=== PATIENT | male | born 1945 | race Caucasian/White ===

== ENCOUNTER 2024-10-13 13:40 | Inpatient (IN) | payer MEDICARE, MEDICAID, SELFPAY ==
[2024-10-13] VITALS (8 sets, daily range): BP systolic 91–137; BP diastolic 44–117; PULSE 55–83; RESP 13–25; TEMP 36.2–37.7; O2SAT 92–98; BMI 28.4
--- NOTE | ~2024-10-13 | CT_ITS ---
CLINICAL HISTORY: sepsis, r o renal abscess Exam: CT of the abdomen and pelvis with intravenous contrast. Comparison: None. Findings: Images degraded by patient motion. CT abdomen: Multifocal areas of consolidation are identified within the lung bases. Paraseptal emphysematous changes are also evident. Small right pleural effusion with trace left pleural effusion. Bones are osteopenic. Multilevel degenerative change throughout the thoracolumbar spine with bony ankylosis at L2-3. No acute fracture. Moderate coronary artery calcifications. No focal lesions identified within the liver, spleen, pancreas, or adrenal glands. Densely calcified gallstones are seen filling the gallbladder. No pericholecystic induration is identified. Bilateral renal cysts without solid mass or hydronephrosis. Small bowel loops are of normal caliber. No free fluid or free air. CT pelvis: Kekojndz-yp-hoqnk amount of stool throughout the colon. 6 cm stool ball seen within the rectum. Moderate to severe sigmoid diverticulosis without diverticulitis. There is vascular calcification of the abdominal aorta and iliac arteries. Numerous radiation beads seen within the prostate gland. Kelly catheter is seen within a decompressed urinary bladder. On the most caudad axial image, there is a fluid attenuation structure to the right of the Kelly catheter in the region of the proximal penile urethra measuring 1.4 x 2.0 cm in size. No enlarged lymph nodes. Impression: 1. Multifocal areas of consolidation in the lungs on a background of emphysema. This is most characteristic of multifocal pneumonia. 2. Cholelithiasis without CT findings of cholecystitis. 3. Prominent colonic stool without findings of obstruction. 4. Posttreatment change of the prostate gland with nonspecific fluid attenuation structure along the right aspect of the penile urethra on the most caudad axial image. This document has been electronically signed by: James Bautista MD on 10/14/2024 10:01:08
--- NOTE | ~2024-10-13 | XR_ITS ---
EXAMINATION: XR CHEST CLINICAL INFORMATION: fever, hypoxia COMPARISON: None available. TECHNIQUE: Frontal view of the chest was obtained. FINDINGS: There is cardiac enlargement. The aorta is calcified. There are hazy opacities in the bilateral perihilar regions. Elevated right hemidiaphragm. Lungs demonstrate diffuse increased interstitial markings, possibly reflecting underlying interstitial lung disease. Superimposed patchy opacities right mid lung, perihilar regions, left lower lung, possibly representing infectious or inflammatory pneumonia. There are no effusions or pneumothoraces. There are spinal and bilateral shoulder joint degenerative changes. No acute bony or soft tissue abnormalities. XR/XR chest 1V IMPRESSION: 1. Cardiomegaly. 2. Diffusely increased interstitial markings throughout both lungs, possibly on the basis of chronic interstitial lung disease. 3. Superimposed hazy opacities right mid lung, perihilar regions, and left lower lung could represent infectious or inflammatory pneumonia. 4. No definite effusion seen. Electronically signed by: Evans Freitas MD 10/13/2024 03:25 PM [facility]
--- NOTE | 2024-10-13 13:49 | MHC.EDSEPSIS ---
HPI - Sepsis General Chief Complaint: Dyspnea Stated Complaint: SEPSIS ALERT,AMS,?UTI PER EMS Time Seen by Provider: 10/13/24 13:46 Source: patient, EMS, RN notes reviewed and old records reviewed Mode of arrival: EMS Limitations: no limitations History of Present Illness ED Provider: Dangelo Fried PA-C HPI Narrative: 79 y/o bdbound male with history of chronic hypoxic and hypercarbic respiratory failure on 4L NC at baseline, COPD on chronic prednisone, afib on Eliquis, dysphagia on honey thick liquids, CHF, urinary retention w/ chronic Kelly, adjustment disorder with anxiety, HTN, IRIS on CPAP, DM2, GERD, hx PNA who presents to the ER via EMS from [facility] for evaluation of confusion and purulent sediment in his Kelly catheter. EMS reports family called on his behalf and wants him brought to the ER and that there were no concerns from staff at the facility. Patient was reportedly recently at [facility] for UTI, had it exchanged on 10/06 and was sent back to the rehab on 10/11. Per EMS patient was noted to be slightly confused. [place] warm but temp 99. He was hypotensive to the 90s systolic, in rapid afib. IV was established and he was given 400cc IVF en route. MD elicited complaint: malaise and other (confusion, concern for UTI) Onset (ago): unknown Context: recent hospitalization Treatments prior to arrival fever: none Related Data Allergies Allergy/AdvReac Type Severity Reaction Status Date / Time No Known Allergies Allergy Verified 10/13/24 14:03 Review of Systems Review of Systems Yes all other systems are reviewed and are negative Physical Exam Vital Signs: Last Vital Signs Temp 99.9 F 10/13/24 13:55 Pulse 83 10/13/24 13:55 Resp 24 H 10/13/24 13:55 BP 137/117 H 10/13/24 13:55 Pulse Ox 95 10/13/24 13:55 O2 Del Method Room Air 10/13/24 13:55 BMI result Body Mass Index 28.4 Appearance: Alert, elderly chronically ill appearing male. Oriented X2. Head: normocephalic, atraumatic. Eyes: Pupils equal, round and reactive to light. ENT: Pharynx normal. No tonsillar swelling or exudate. Neck: Normal inspection. Neck supple. CVS: irregularly irregular, hr 90s, Pulses normal. Respiratory: Mild respiratory distress with increased RR and purse lip breathing. Breath sounds diminished throughout without rhonchi or wheezing. Abdomen: Obese, Soft with mild suprapubic tenderness, normal active +BS x4 Skin: Skin warm and dry. Normal skin color. Normal skin turgor. No rashes. Extremities: No lower extremity edema. No joint swelling. Neuro/psych: Oriented X 2. LE bilaterally weak, symmetrical strength in UE. Normal speech. intermittent confusion and agitation. Course Reevaluation(s) Reevaluation #1: records obtained from [facility] showing he grew ESBL E. coli and Proteus his most recent admission - this was not treated because he improved on Rocephin which it was resistant to...thought not to be a true infection at that time. meropenum ordered. Dr. Mccormick made aware of planned admission Time: 15:13 Critical Care Time Critical Care Time Critical Care Time: Yes Total Critical Care Time: 36 Attestation: I have personally provided critical care time exclusive of time spent on separately billable procedures. Time includes review of lab data, radiology results, discussion with consultants, and monitoring for potential decompensation. Intervention performed as documented. Discharge Plan Discharge Clinical Impression: Acute UTI Sepsis Qualifiers: Sepsis type: sepsis due to unspecified organism Sepsis acute organ dysfunction status: unspecified Qualified Code(s): A41.9 - Sepsis, unspecified organism Patient Disposition: Admitted As Inpatient Print Language: Luxembourgish Sepsis Event Note Focused Exam Vital signs: Vital Signs Temp Pulse Resp BP Pulse Ox O2 Del Method 10/13/24 13:55 99.9 F 83 24 H 137/117 H 95 Room Air [facility] Social History Social History Advance Directives: Yes Advance Directives Information Provided: Yes Advance Directives on File: No Do you have a plan to hurt others: No Plan
--- NOTE | 2024-10-13 13:56 | ECG_ITS ---
Test Reason : WEAKNESS Blood Pressure : */* mmHG Vent. Rate : 73 BPM Atrial Rate : * BPM P-R Int : * ms QRS Dur : 112 ms QT Int : 428 ms P-R-T Axes : * -30 57 degrees QTcB Int : 471 ms Multifocal atrial rhythm Left axis deviation Minimal voltage criteria for LVH, may be normal variant ( R in aVL ) Cannot rule out Anterior infarct , age undetermined Abnormal ECG No previous ECGs available Referred By: Sandra Fried Electronically Signed By: KATHERINE AVILA MD
[2024-10-13] MEDS: cefTRIAXone sodium 1 GM VIAL IVPUSH (14:49)
[2024-10-13 14:50] LABS: Basophils Percent Auto 0.2 % (0-2); Eosinophils Percent Auto 0.1 % (0-4); Hematocrit 31.6 % (42.0-52.0); Hemoglobin 9.5 g/dl (14.0-18.0); Imm Gran Abs Auto 0.07 X10*3/uL (0.00-0.03); Imm Gran Pct Auto 0.5 % (0.0-0.4); Lymphocytes Absolute Auto 1.9 X10*3/uL (1.2-4.9); MANUAL DIFF FLAG NO; Mean Corpuscular HGB Conc 30.1 g/dl (31.0-36.0); Mean Corpuscular Hemoglobin 26.2 pg (27.0-33.0); Mean Corpuscular Volume 87.3 fL (80.0-98.0); Mean Platelet Volume 10.7 fL (9.4-12.4); Monocytes Absolute Auto 0.5 X10*3/uL (0.1-1.2); Monocytes Percent Auto 3.8 % (2-11); Neutrophils Absolute Auto 10.3 x10*3/uL (2.0-8.3); Neutrophils Percent Auto 80.4 % (45-73); Platelet Count 199 X10*3/uL (160-400); Red Blood Count 3.62 X10*6/uL (4.60-5.80); Red Cell Distribution Width 15.5 % (11.0-16.0); White Blood Count 12.8 X10*3/uL (4.8-10.8)
[2024-10-13 14:59] LABS: Venous Blood Gas Refer to POC result
[2024-10-13 14:59] LABS: VBG Base Excess 22.3 mmol/L; VBG HCO3 49 mmol/L (22-26); VBG pCO2 65 mmHg; VBG pH 7.48 (7.32-7.43); VBG pO2 37 mmHg
[2024-10-13 15:19] LABS: Lactic Acid 2.9 mmol/L (0.5-2.0)
[2024-10-13 15:21] LABS: B Type Natriuretic Peptide 848 pg/mL (<100); Troponin-I High Sensitivity 22.4 ng/L (<3.5-35.0)
[2024-10-13] MEDS: Meropenem 1 GM VIAL IVPUSH ×2 (15:28→23:58)
[2024-10-13 15:29] LABS: Alanine Aminotransferase < 6 U/L (0-40); Albumin Level 2.2 g/dL (3.5-5.0); Alkaline Phosphatase 118 U/L (39-117); Anion Gap 12 (12-20); Aspartate Amino Transferase 12 U/L (5-37); Bilirubin Direct < 0.2 mg/dL (0.0-0.5); Bilirubin Total 0.1 mg/dL (0.0-1.0); Blood Urea Nitrogen 15 mg/dL (9-16); Calcium 7.7 mg/dL (8.4-10.2); Carbon Dioxide 38 mmol/L (22-29); Chloride 96 mmol/L (96-108); Creatinine Clr Calc Pharmacy 112.8; Estimated Glomerular Filt Rate > 60; Glucose Random 172 mg/dL (60-115); Magnesium 1.5 mg/dL (1.6-2.6); Potassium 3.9 mmol/L (3.3-5.1); Sodium 142 mmol/L (135-145); Total Protein 6.4 g/dL (6.5-8.0)
[2024-10-13] MEDS: Lactated Ringers 1,000 ML 999 ML IV (15:29)
[2024-10-13 15:35] LABS: Influenza A PCR NEGATIVE (Negative); Influenza B PCR NEGATIVE (Negative); Resp Syncy Virus RNA Qual PCR NEGATIVE (Negative); SARS COV2 PCR INHOUSE NEGATIVE (Negative)
[2024-10-13 15:35] LABS: Procalcitonin 0.08 ng/mL
--- NOTE | 2024-10-13 15:44 | ED.GENADULT ---
HPI - General Adult General Chief complaint: Dyspnea Stated complaint: SEPSIS ALERT,AMS,?UTI PER EMS Time Seen by Provider: 10/13/24 13:46 Source: patient and EMS Mode of arrival: EMS Limitations: altered mental status and other (poor historian) History of Present Illness ED Provider: Dangelo Fried PA-C HPI narrative: 79 y/o bdbound male with history of chronic hypoxic and hypercarbic respiratory failure on 4L NC at baseline, COPD on chronic prednisone, afib on Eliquis, dysphagia on honey thick liquids, CHF, urinary retention w/ chronic Kelly, adjustment disorder with anxiety, HTN, IRIS on CPAP, DM2, GERD, hx PNA who presents to the ER via EMS from [facility] for evaluation of confusion and purulent sediment in his Kelly catheter. EMS reports family called on his behalf and wants him brought to the ER and that there were no concerns from staff at the facility. Patient was reportedly recently at [facility] for UTI, had it exchanged on 10/06 and was sent back to the rehab on 10/11. Per EMS patient was noted to be slightly confused. [place] warm but temp 99. He was hypotensive to the 90s systolic, in rapid afib. IV was established and he was given 400cc IVF en route. MD complaint: concern for UTI, confused Onset (ago): unknown Relieving factors: none Exacerbating factors: none Associated symptoms: confusion, malaise and weakness Treatments prior to arrival: none Related Data Allergies Allergy/AdvReac Type Severity Reaction Status Date / Time No Known Allergies Allergy Verified 10/13/24 14:03 Review of Systems Review of Systems: Yes all other systems are reviewed and are negative [facility] Social History Social History Advance Directives: Yes Advance Directives Information Provided: Yes Advance Directives on File: No Do you have a plan to hurt others: No Plan Physical Exam ED Vital Signs: Vital Signs - 24 hr 10/13/24 13:55 Temperature 99.9 F Pulse Rate 83 Respiratory Rate 24 H Blood Pressure 137/117 H Pulse Oximetry 95 Oxygen Delivery Method Room Air BMI result Body Mass Index 28.4 Appearance: Alert, elderly chronically ill appearing male. Oriented X2. Head: normocephalic, atraumatic. Eyes: Pupils equal, round and reactive to light. ENT: Pharynx normal. No tonsillar swelling or exudate. Neck: Normal inspection. Neck supple. CVS: irregularly irregular, hr 90s, Pulses normal. Respiratory: Mild respiratory distress with increased RR and purse lip breathing. Breath sounds diminished throughout without rhonchi or wheezing. Abdomen: Obese, Soft with mild suprapubic tenderness, normal active +BS x4 Skin: Skin warm and dry. Normal skin color. Normal skin turgor. No rashes. Extremities: No lower extremity edema. No joint swelling. Neuro/psych: Oriented X 2. LE bilaterally weak, symmetrical strength in UE. Normal speech. intermittent confusion and agitation. Course Reevaluation(s) Reevaluation #1: Records from records from [facility] are showing patient recently grew ESBL E coli and Proteus in his urine during that admission. He was treated with Rocephin and by the time sensitivities got back he was already improved. They do not think this was true infection and they did not treat the ESBL infection. Presenting back today with gross pyuria, IV meropenem ordered and Dr. Mccormick made aware Time: 15:00 Medications Administered Generic Name Dose Route Start Last Admin Trade Name Freq PRN Reason Stop Dose Admin Lactated Ringer's 1,000 mls @ 999 mls/hr 10/13/24 15:15 10/13/24 15:29 Lr IV 10/13/24 16:15 999 mls/hr .Q1H1M TINA Administration Discontinued Medications Generic Name Dose Route Start Last Admin Trade Name Freq PRN Reason Stop Dose Admin Acetaminophen 650 mg 10/13/24 14:17 10/13/24 15:09 Acetaminophen Supp 650 Mg Supp.Rect OK 10/13/24 14:18 Not Given ONCE ONE Ceftriaxone Sodium 1 gm 10/13/24 13:56 10/13/24 14:49 Ceftriaxone Sodium 1 Gm Vial IVPUSH 10/13/24 13:57 1 gm ONCE ONE Administration Meropenem 1 gm 10/13/24 15:02 10/13/24 15:28 Meropenem 1 Gm Vial IVPUSH 10/13/24 15:03 1 gm ONCE ONE Administration Medical Decision Making Medical Decision Making MDM Narrative: 79 y/o bdbound male with history of chronic hypoxic and hypercarbic respiratory failure on 4L NC at baseline, COPD on chronic prednisone, afib on Eliquis, dysphagia on honey thick liquids, CHF, urinary retention w/ chronic Kelly, adjustment disorder with anxiety, HTN, IRIS on CPAP, DM2, GERD, hx PNA who presents to the ER via EMS from [facility] for evaluation of confusion and purulent sediment in his Kelly catheter. Initially with soft BP 90s and HR 110s. VS improved here after 400cc IVF en route. SPO2 90% on baseline 4L. Denies SOB. no chest pain or abdominal pain. He is intermittently confused. He does not know why he is here. There is purulent material coming from his Kelly. This was exchanged and a new sample sent. Rocephin ordered. Records requested from [facility]. His W10 does not have him on abx currently. labs revealing for leukocytosis 12.8, normocytic anemia, unknown baseline. his renal function is normal. elevated bicarb likely due to end stage COPD/ILD. Lactic acid 2.9. Albumin 2.2. BNP 800s. unknown EF. Ordered only 1L IVF given CHF history of lasix at baseline. he has no peripheral edema but has tenuous respiratory status and marginal sats on his baseline O2. Will require admission for further management. FULL CODE on MOLST. Differential Diagnosis Differential Diagnoses: The differential diagnosis associated with the presentation includes UTI, pyelonephritis, sepsis, acute metabolic encephalopathy, COPD exacerbation, PNA, Flu Admission/Observation Consideration of admission/observation: Escalation of care including admission/observation considered Consult Healthcare Provider Management of the patient was discussed with: Hospitalist Lab Data [facility] Lab Attestation statement: I reviewed the patient's lab results. leukocytosis, anemia, low albumin 10/13/24 14:41 10/13/24 14:41 Labs: Lab Results 10/13/24 10/13/24 10/13/24 Range/Units 14:40 14:41 14:47 WBC 12.8 H (4.8-10.8) X10*3/uL RBC 3.62 L (4.60-5.80) X10*6/uL Hgb 9.5 L (14.0-18.0) g/dl Hct 31.6 L (42.0-52.0) % MCV 87.3 (80.0-98.0) fL MCH 26.2 L (27.0-33.0) pg MCHC 30.1 L (31.0-36.0) g/dl RDW 15.5 (11.0-16.0) % Plt Count 199 (160-400) X10*3/uL MPV 10.7 (9.4-12.4) fL Immature Gran % (Auto) 0.5 H (0.0-0.4) % Neut % (Auto) 80.4 H (45-73) % Lymph % (Auto) 15.0 L (20-40) % [place] % (Auto) 3.8 (2-11) % Eos % (Auto) 0.1 (0-4) % Baso % (Auto) 0.2 (0-2) % Lymph # (Auto) 1.9 (1.2-4.9) X10*3/uL [place] # (Auto) 0.5 (0.1-1.2) X10*3/uL Eos # (Auto) 0.0 (0.0-0.4) X10*3/uL Baso # (Auto) 0.0 (0.0-0.2) X10*3/uL Abs Immat Gran (auto) 0.07 H (0.00-0.03) X10*3/uL Absolute Neuts (auto) 10.3 H (2.0-8.3) x10*3/uL Absolute Nucleated RBC 0.000 (0.0-0.012) X10*3/uL Nucleated RBC % (auto) 0.0 (0.0-0.2) /100WBC VBG pH 7.48 H (7.32-7.43) VBG pCO2 65 mmHg VBG pO2 37 mmHg VBG HCO3 49 H (22-26) mmol/L VBG O2 Saturation 60.0 % VBG Base Excess 22.3 mmol/L Sodium 142 (135-145) mmol/L Potassium 3.9 (3.3-5.1) mmol/L Chloride 96 (96-108) mmol/L Carbon Dioxide 38 H (22-29) mmol/L Anion Gap 12 (12-20) BUN 15 (9-16) mg/dL Creatinine 0.59 (0.5-1.4) mg/dL Estim Creat Clear Calc 112.8 Estimated GFR > 60 Random Glucose 172 H (60-115) mg/dL Lactic Acid 2.9 H* (0.5-2.0) mmol/L Calcium 7.7 L (8.4-10.2) mg/dL Magnesium 1.5 L (1.6-2.6) mg/dL Total Bilirubin 0.1 (0.0-1.0) mg/dL Direct Bilirubin < 0.2 (0.0-0.5) mg/dL AST 12 (5-37) U/L ALT < 6 (0-40) U/L Alkaline Phosphatase 118 H (39-117) U/L Troponin I High Sens 22.4 (<3.5-35.0) ng/L B-Natriuretic Peptide 848 H (<100) pg/mL Total Protein 6.4 L (6.5-8.0) g/dL Albumin 2.2 L (3.5-5.0) g/dL Procalcitonin 0.08 ng/mL Influenza Type A (PCR) NEGATIVE (Negative) Influenza Type B (PCR) NEGATIVE (Negative) RSV RNA Qual (PCR) NEGATIVE (Negative) SARS-CoV-2 RNA (RT-PCR) NEGATIVE (Negative) ABG Data Attestation ABG: I personally reviewed and interpreted this ABG as follows: Independent Interpretation I performed an independent interpretation of an: EKG and Plain X-Ray Interpretation: EKG with atrial fibrillation, heart rate 73 beats per minute, some artifact is present in lead 2, no ST segment elevations or depressions appreciated CXR with hazy bilateral opacitis Radiology Impression Discussion of test interpretation with radiology: I have reviewed the radiologist's reading. Radiologist Impression: XR/XR chest 1V IMPRESSION: 1. Cardiomegaly. 2. Diffusely increased interstitial markings throughout both lungs, possibly on the basis of chronic interstitial lung disease. 3. Superimposed hazy opacities right mid lung, perihilar regions, and left lower lung could represent infectious or inflammatory pneumonia. 4. No definite effusion seen. Independent Historian Clinical information obtained from an independent historian. History obtained from or confirmed by: EMS External Record Review External record reviewed: Prior outpatient labs Prescription Management I considered prescription management with: Antibiotic Chronic Conditions Patient?s care impacted by: Other (urinary retention, COPD) Critical Care Time Critical Care Time Critical Care Time: Yes Total Critical Care Time: 44 Attestation: I have personally provided critical care time exclusive of time spent on separately billable procedures. Time includes review of lab data, radiology results, discussion with consultants, and monitoring for potential decompensation. Intervention performed as documented. Discharge Plan Discharge Clinical Impression: Acute UTI Sepsis Qualifiers: Sepsis type: sepsis due to unspecified organism Sepsis acute organ dysfunction status: unspecified Qualified Code(s): A41.9 - Sepsis, unspecified organism Patient Disposition: Admitted As Inpatient Print Language: Urdu
--- OUTSIDE RECORDS SUMMARY | 2024-10-13 16:04 | XMS_ITS | Patient Health Record ---
Author Organization [facility] Address [address] [place], [place] [id number] Care Team Providers Care Interventional Radiology Rn Name Role Phone Isi Wallace MD Primary Care Provider Evans Cuevas Unavailable [phone] Allergies Allergen (clinical drug ingredient) Drug/Non Drug Allergy documented on EMR Reaction Allergy Type Onset Date Status Latex latex (uncoded) Unknown Allergy Acti ve lisinopril lisinopril (uncoded) Unknown Allergy Active Reason For Referral No Information Medications Medication SIG (Take, Route, Frequency, Duration) Notes Start Date End Date Status Folic Acid 1 MG 1 tablet Orally Once a day Active Lasix 20 MG 1 tablet Orally Once a day Active Fluticasone Propionate 50 MCG/ACT 1 spray in each nostril Nasally Once a day Active Omeprazole 40 MG 1 capsule Orally Onc e a day Active Ipratropium-Albuterol 0.5-2.5 (3) MG/3ML 3 ml as needed Inhalation every 6 hrs Active Azithromycin (Zpack) 250 2 tab day one t hen one tab a day for total 5 days By mouth daily for 5 days 07/07/2021 Active predniSONE 10 MG 1 tablet Orally Once a day Active Acetaminophen 325 MG 1 tablet as needed Orally every 4 hrs Active Ferrous Gluconate 324 (38 Fe) MG 1 tablet with water or juice between meals Orally Once a day Active Furosemide 20 MG 1 tablet Orally Once a day Active predniSONE 10 MG 6 tabs daily x 2 day s then decrease by 1 tab every 2 days until off Orally Once a day for 12 days 07/07/2021 Active Bisacodyl 10 MG 1 suppository as nee ded Rectal Once a day Active Azithromycin (Zpack) 250 2 tab day one t hen one tab a day for total 5 days By mouth daily for 5 days 07/07/2021 Active predniSONE 10 MG 6 tabs daily x 2 day s then decrease by 1 tab every 2 days until off Orally Once a day for 12 days 07/07/2021 Active Breo Ellipta 100-25 MCG/INH 1 puff Inhal ation Once a day for 30 days 11/18/2021 Active AirDuo RespiClick 113/14 113-14 MCG/ACT 1 puff Inhalation Twice a day for 30 days 11/11/2021 Active Immunizations Vaccine Route Administration Date Status Comme nts Zz FLUVIRIN MEDICARE Unknown 08/23/2017 Administered Problems Problem Type SNOMED Code ICD Code Onset Dates Problem Status W/U Status Risk Notes Problem 635539481 Chronic diastoli c (congestive) heart failure (I50.32) Active confirmed Problem 312288279 Chronic respirat ory failure with hypercapnia (J96.12) Active confirmed Problem 29193622 IRIS (obstructive sleep apnea) (G47.33) Active confirmed Problem Morbid obesity (614386295) Morbid obesity (E66.01) Active confirmed Problem 085302376 Morbid obesity d ue to excess calories (E66.01) Active confirmed Problem 438407880 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) Active confirmed Problem COPD - Chronic obstructive pulmonary disease (92753980) Chronic obstructive pulmonary disease, unspecified COPD type (J44.9) Active confirmed Problem 811840554 ILD (interstitia l lung disease) (J84.9) Active confirmed Problem 881178434 GERD without esophagitis (K21.9) Active confirmed Problem 283449556 Chronic hypoxemi c respiratory failure (J96.11) Active confirmed Problem 744959324 Eosinophilic pneumonia (J82) Active confirmed Problem 896597168338151 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) Active confirmed Problem 8403901 Chronic vasomoto r rhinitis (J30.0) Active confirmed Problem 53804808 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) Active confirmed Plan Of Treatment Pending Test Test Name Order Date REGION 1 RESPIRATORY PROFILE 01/07/2018 IGE QUANTITATIVE 01/07/2018 SLEEP STUDY-SPLIT 05/06/2017 CHEST XRAY PA LAT 04/22/2017 CBC W/ DIFF 05/06/2017 CBC AUTO DIFFERENTIAL 12/17/2017 CBC AUTO DIFFERENTIAL 01/07/2018 Future Test Test Name Order Date PFT: Complete ([place] Pre/Post, Lung Volu mes, BB, DLCO) 12/17/2017 Insurance Providers Payer Name Payer Address Payer Phone Subscriber Number Group Number Insured Name Patient Relationship to Insured Coverage Start Date Coverage End Date Medicare [address] [place] [phone] [id number] Kenji Perales Self - patient is the insured [facility] [address] [place] [address] [id number] Kenji Perales Self - patient is the insured Medical (General) History Medical History History ICD Code Right bimalleolar ankle fracture Obesity HTN Prostate cancer s/p radiation seed impla ntation in 2004 (approx) IRIS OA, left hip and knee COPD Chronic thrombocytopenia Chronic eosoniphilic pneumonia, NSIP GERD [place] type 2 block Surgical History Surgery Date(Month/Year) Right ankle ORIF and subsequent hardware removal October and December 2013 left elbow fracture 08/08 Hospitalization History Reason Date(Month/Year) Weakness Respiratory failure
[2024-10-13] MEDS: Acetaminophen 1,000 MG/100 ML PIGGYBACK 400 MG IV (16:30)
[2024-10-13] MEDS: Magnesium Sulfate/D5W 1 GM/100 ML PIGGYBACK IV (16:30)
--- NOTE | 2024-10-13 16:32 | PHA.MEDREC ---
Addendum entered by Daisha Love RPh 10/13/24 16:57: Med rec was reviewed by [facility]. Original Note: Pharmacy Consult ? Medication Reconciliation Pharmacy has completed the medication reconciliation. Utilized list from [facility] to confirm med list.
[2024-10-13 16:47] LABS: Reflex Lactate? Lactic Acid Added
[2024-10-13 16:50] LABS: UMIC TRIGGER UACC YES
[2024-10-13 16:51] LABS: Color Urine Yellow
[2024-10-13 16:53] LABS: Appearance Urine Turbid
[2024-10-13 16:55] LABS: Bacteria Urine 3+ (None Seen); Hyaline Casts Urine 0-2 /LPF (0-2); RBC Urine >20 /HPF (0-2); Squamous Epithelial Cell Urine 0-2 /HPF (0-2); WBC Clumps Urine Present; WBC Urine >50 /HPF (0-5)
[2024-10-13 16:56] LABS: UACC Culture Trigger YES
[2024-10-13] MEDS: Albumin Human 25 % 100 ML IV ×2 (16:58→17:38)
[2024-10-13 17:50] LABS: ~Lactic Acid-LAB USE ONLY 2.1 mmol/L (0.5-2.0)
[2024-10-13 18:48] LABS: Cancel Lactic Acid Canceled
[2024-10-13] MEDS: 0.9 % Sodium Chloride 1,000 ML 250 ML IV (19:43)
--- NOTE | 2024-10-13 20:00 | PC.NURSE ---
This television script writer assumed care of this Pt at 1900. Pt A&Ox2, BP noted to be soft in the , provider Dr. Lim made aware, new order of NS fluids given per NOV and plan for 3 blood pressures Q 15 minutes. Blood pressure cuff changed to proper size. Pt on 4L of O2 via Oxymask, SpO2 97%, Pt purse lip breathing, lung sounds slightly diminished. Kelly cath replaced by previous RN, draining dark yellow color urine.
--- NOTE | 2024-10-13 20:09 | PM.IMHP ---
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 EMS was apparently called by family who were concerned about patient's status, rather than from facilities staff. Pt was recently discharged from [facility] 2 days prior on 10/11/2024 after being admitted for evaluation of potential UTI and urinary retention with inability to changes catheter at rehab. Pt initially started on ceftriaxone, but urine culture on 10/05 grew Proteus mirabilis and E coli consistent with ESBL and resistant to ceftriaxone. Pt was initially switched to meropenem. Infectious Disease was consulted and stopped all antibiotics as they thought pt was colonized rather than acutely infected. Pt was discharged back to facility not on antibiotics. He did not have a leukocytosis at time of discharge. Of note, pt was previously admitted from 07/15-07/23 at [facility] for septic shock due to Proteus mirabilis UTI and bacteremia. Pt himself does not appear to have any acute complaints but is a difficult historian. Complains of chronic difficulty breathing and back and leg pain; unclear if different from baseline. Patient's Kelly catheter was replaced in the ED. Nursing notes patient's initial urine was thick, purulent, and pus-like. In the ED pt was tachypneic up to 25 and with soft BP as low as 96/46, satting at 98% on 4L OxyMask. Labs were significant for leukocytosis 12.8, H&H 9.5/31.6, lactic acid 2.9 with repeat 2.1, magnesium 1.5, BNP 848, and albumin 2.2. UA was thick and sediment noted and could not be run through urinalysis machine, but showed 3+ bacteria and >550 wbc's. CXR showed cardiomegaly, diffusely increased interstitial markings and superimposed hazy opacities in multiple areas. EKG demonstrated atrial fibrillation without evidence of significant ST elevations or depressions. Pt was treated with IVF, but sulfate, acetaminophen, albumin, ceftriaxone, and meropenem. Pt will be admitted to the hospital for treatment and further evaluation of acute metabolic encephalopathy in the setting of UTI with sepsis in a pt with hx of ESBL bacteriuria. Review of Systems Review of Systems: Yes Unobtainable due to mental status [facility] Medical History (Updated 10/13/24 @ 20:42 by CONNIE Clifton) Obstructive sleep apnea Generalized anxiety disorder Adjustment disorder Non-insulin dependent type 2 diabetes mellitus Dysphagia Heart failure with reduced ejection fraction Persistent atrial fibrillation Idiopathic pulmonary fibrosis Prostate cancer Chronic indwelling Kelly catheter Social History Alcohol intake: never Smoked in Last 30 Days: No Use of substances other than those prescribed or required for medical reasons: No Advance Directives: Yes Advance Directives Information Provided: Yes Advance Directives on File: No Do you have a plan to hurt others: No Plan Meds Allergies Allergy/AdvReac Type Severity Reaction Status Date / Time No Known Allergies Allergy Verified 10/13/24 14:03 Active Medications: Current Medications Albuterol/Ipratropium (Albuterol/Iprat 2.5/0.5mg 3 Ml Ampul.Neb) 3 ml INHALE Q4H PRN PRN Reason: Shortness Of Breath Or Wheezing Apixaban (Apixaban 5 Mg Tablet) 5 mg PO BID [facility] Fluticasone Propionate (Fluticasone Propionate Nasal 16 Gm [place]) 2 spray NOSTRIL-B DAILY [facility] Folic Acid (Folic Acid 1 Mg Tablet) 1 mg PO DAILY [facility] Sodium Chloride (Ns) 1,000 mls @ 250 mls/hr IV .Q4H STA Stop: 10/13/24 23:21 Last Admin: 10/13/24 19:43 Dose: 250 mls/hr Non-Formulary Medication (Fluticasone Propion-Salmeterol [Advair Diskus]) 1 inhalation INHALE BID [facility] Omeprazole (Omeprazole 20 Mg Capsule.Dr) 20 mg PO DAILY [facility] Potassium Chloride (Potassium Chloride Er 20 Meq Tab.Er.Prt) 20 meq PO BID [facility] Prednisone (Prednisone 10 Mg Tablet) 10 mg PO DAILY [facility] Home Medications ?Medication ?Instructions ?Recorded ?Confirmed ?Last Taken ?Type acetaminophen 500 mg tablet 1,000 mg PO BID 10/13/24 10/13/24 Unknown History apixaban 5 mg tablet (Eliquis) 5 mg PO BID 10/13/24 10/13/24 Unknown History clotrimazole 1 % topical cream 1 appl topical DAILY PRN Rash 10/13/24 10/13/24 Unknown History doxazosin 4 mg tablet 4 mg PO BID 10/13/24 10/13/24 Unknown History fluticasone 100 mcg-salmeterol 50 1 inh inhalation BID 10/13/24 10/13/24 Unknown History mcg/dose blistr powdr for inhalation (Advair Diskus) fluticasone propionate 50 2 spray intranasal DAILY 10/13/24 10/13/24 Unknown History mcg/actuation nasal spray,suspension folic acid 1 mg tablet 1 mg PO DAILY 10/13/24 10/13/24 Unknown History furosemide 40 mg tablet 40 mg PO BID 10/13/24 10/13/24 Unknown History ipratropium 0.5 mg-albuterol 3 mg 3 ml inhalation Q4H PRN Shortness 10/13/24 10/13/24 Unknown History (2.5 mg base)/3 mL nebulization Of Breath Or Wheezing soln metformin 500 mg tablet 500 mg PO BID 10/13/24 10/13/24 Unknown History omeprazole 20 mg capsule,delayed 20 mg PO DAILY 10/13/24 10/13/24 Unknown History release potassium chloride 20 mEq 20 meq PO BID 10/13/24 10/13/24 Unknown History tablet,extended release(part/cryst) prednisone 10 mg tablet 10 mg PO DAILY 10/13/24 10/13/24 Unknown History tamsulosin 0.4 mg capsule 0.4 mg PO DAILY 10/13/24 10/13/24 Unknown History Physical Exam Vital Signs and Narrative: Vital Signs: Last Vital Signs Temp 97.7 F 10/13/24 18:47 Pulse 68 10/13/24 19:55 Resp 21 H 10/13/24 19:55 BP 103/54 L 10/13/24 19:55 Pulse Ox 96 10/13/24 19:55 O2 Del Method Oxymask 10/13/24 19:55 O2 Flow Rate 4 10/13/24 19:55 BMI result Body Mass Index 28.4 General: AOx2, chronically ill-appearing, in no acute distress Resp: Coarse breath sounds bilaterally CVS: Irregularly irregular rhythm GI: +BS, NT, no distention Skin: Warm, dry Neuro: Cranial nerves II-XII grossly intact bilaterally. Motor grossly intact bilaterally, though symmetric generalized weakness of lower extremities Extremities: No edema Psych: Irritable, slightly confused Results Labs 10/13/24 14:41 10/13/24 14:41 Labs: Laboratory Results - last 24 hr 10/13/24 10/13/24 10/13/24 14:40 14:41 14:47 MCV 87.3 MCH 26.2 L MCHC 30.1 L RDW 15.5 Plt Count 199 MPV 10.7 Immature Gran % (Auto) 0.5 H Neut % (Auto) 80.4 H Lymph % (Auto) 15.0 L [place] % (Auto) 3.8 Eos % (Auto) 0.1 Baso % (Auto) 0.2 Lymph # (Auto) 1.9 [place] # (Auto) 0.5 Eos # (Auto) 0.0 Baso # (Auto) 0.0 Abs Immat Gran (auto) 0.07 H Absolute Neuts (auto) 10.3 H Absolute Nucleated RBC 0.000 Nucleated RBC % (auto) 0.0 VBG pH 7.48 H VBG pCO2 65 VBG pO2 37 VBG HCO3 49 H VBG O2 Saturation 60.0 VBG Base Excess 22.3 Anion Gap 12 Estim Creat Clear Calc 112.8 Estimated GFR > 60 Random Glucose 172 H Lactic Acid 2.9 H* Lactic Acid F/U @ 2Hr Calcium 7.7 L Magnesium 1.5 L Total Bilirubin 0.1 Direct Bilirubin < 0.2 AST 12 ALT < 6 Alkaline Phosphatase 118 H Troponin I High Sens 22.4 B-Natriuretic Peptide 848 H Total Protein 6.4 L Albumin 2.2 L Procalcitonin 0.08 Urine Color Urine Appearance Urine pH Ur Specific [place] Urine Protein Urine Glucose (UA) Urine Ketones Urine Blood Urine Nitrite Ur Leukocyte Esterase Urine RBC Urine WBC Urine WBC Clumps Ur Squamous Epith Cells Urine Bacteria Hyaline Casts Influenza Type A (PCR) NEGATIVE Influenza Type B (PCR) NEGATIVE RSV RNA Qual (PCR) NEGATIVE SARS-CoV-2 RNA (RT-PCR) NEGATIVE 10/13/24 10/13/24 15:33 17:25 MCV MCH MCHC RDW Plt Count MPV Immature Gran % (Auto) Neut % (Auto) Lymph % (Auto) [place] % (Auto) Eos % (Auto) Baso % (Auto) Lymph # (Auto) [place] # (Auto) Eos # (Auto) Baso # (Auto) Abs Immat Gran (auto) Absolute Neuts (auto) Absolute Nucleated RBC Nucleated RBC % (auto) VBG pH VBG pCO2 VBG pO2 VBG HCO3 VBG O2 Saturation VBG Base Excess Anion Gap Estim Creat Clear Calc Estimated GFR Random Glucose Lactic Acid Lactic Acid F/U @ 2Hr 2.1 H* Calcium Magnesium Total Bilirubin Direct Bilirubin AST ALT Alkaline Phosphatase Troponin I High Sens B-Natriuretic Peptide Total Protein Albumin Procalcitonin Urine Color Yellow Urine Appearance Turbid Urine pH TNP Ur Specific [place] TNP Urine Protein TNP Urine Glucose (UA) TNP Urine Ketones TNP Urine Blood TNP Urine Nitrite TNP Ur Leukocyte Esterase TNP Urine RBC >20 H Urine WBC >50 H Urine WBC Clumps Present Ur Squamous Epith Cells 0-2 Urine Bacteria 3+ Hyaline Casts 0-2 Influenza Type A (PCR) Influenza Type B (PCR) RSV RNA Qual (PCR) SARS-CoV-2 RNA (RT-PCR) Imaging Radiologist's Impressions: Impressions Chest X-Ray 10/13/24 13:57 IMPRESSION: 1. Cardiomegaly. 2. Diffusely increased interstitial markings throughout both lungs, possibly on the basis of chronic interstitial lung disease. 3. Superimposed hazy opacities right mid lung, perihilar regions, and left lower lung could represent infectious or inflammatory pneumonia. 4. No definite effusion seen. 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 Pt will be admitted to the hospital for treatment and further evaluation of acute metabolic encephalopathy in the setting of UTI with sepsis in a pt with hx of ESBL bacteriuria. Acute metabolic encephalopathy in the setting of UTI with sepsis Pt with the parent increased confusion, UA positive, Kelly blocked with thick, purulent, and pus-like urine Hx of ESBL bacteria resistant to ceftriaxone meets sepsis criteria: Tachypnea and leukocytosis; lactic acid 2.9 with repeat 2.1 after fluids Pt given IVF and started on broad-spectrum antibiotics in the ED Will treat with Meropenem, started 10/13/2024 Infectious disease consult Follow urine cultures Monitor mentation Hypomagnesemia Magnesium 1.5 at time of presentation Supplemented with 2 g IV Mag in the ED Follow labs HFrEF BNP elevated though baseline unknown Pt clinically does not appear volume overloaded Has received IVF in the ED Furosemide on hold due to soft BP Monitor volume status Hypotension Patient's BP has been soft while in the ED Hold doxazosin, furosemide, and tamsulosin for now Monitor BP Persistent AFib Continue Eliquis Idiopathic pulmonary fibrosis Continue home inhalers Hx of ITP Continue home prednisone Xed-jpbhsxw-qkcdlguef type [address] on sliding scale insulin Diabetic diet Hx of dysphagia Honey thick liquids, chopped/advanced diet Full Code Attending:?Dr. Vale DVT Prophylaxis: On Eliquis Pt will require a hospitalization of at least two nights for treatment of?acute metabolic encephalopathy in the setting of UTI with sepsis in a pt with hx of ESBL bacteriuria. Pt require hospital level care for administration of IV antibiotics, close monitoring of mentation and labs, and specialist consultation with Infectious Disease. Quality Stroke Does the patient have a stroke diagnosis?: No VTE Prior VTE?: No VTE Risk Level:: Medical - moderate - high VTE Device Contraindication: Treatment Not Indicated VTE Drug Contraindication: N/A - Med Ordered
[2024-10-13 21:18] LABS: Glucose, Whole Blood 129 mg/dL (60-115)
[2024-10-13] MEDS: Apixaban 5 MG TABLET PO (21:38)
[2024-10-13] MEDS: Potassium Chloride ER 20 MEQ TAB.ER.PRT PO (21:38)
[2024-10-13] MEDS: Acetaminophen 325 MG TABLET 650 MG PO (21:41)
--- NOTE | 2024-10-13 22:00 | PC.NURSE ---
Pt requesting Tylenol for all over body pain, states I take it 3 times everyday and it helps . Pt medicated per NOV.
[2024-10-13] MEDS: 0.9 % Sodium Chloride Flush 3 ML SYRINGE IVFLUSH (23:58)
[2024-10-14] VITALS (7 sets, daily range): BP systolic 104–120; BP diastolic 46–77; PULSE 57–93; RESP 12–22; TEMP 36–36.6; O2SAT 92–99; BMI 29.9
--- NOTE | 2024-10-14 03:45 | PC.NURSE ---
Pt repositioned per request.
[2024-10-14] MEDS: Acetaminophen 325 MG TABLET 650 MG PO (04:59)
[2024-10-14 06:34] LABS: Anion Gap 9 (12-20); Blood Urea Nitrogen 15 mg/dL (9-16); Calcium 8.5 mg/dL (8.4-10.2); Carbon Dioxide 39 mmol/L (22-29); Chloride 98 mmol/L (96-108); Creatinine Clr Calc Pharmacy 123.3; Estimated Glomerular Filt Rate > 60; Glucose Random 113 mg/dL (60-115); Magnesium 1.7 mg/dL (1.6-2.6); Potassium 4.1 mmol/L (3.3-5.1); Sodium 142 mmol/L (135-145)
[2024-10-14 06:43] LABS: Glucose, Whole Blood 113 mg/dL (60-115)
[2024-10-14] MEDS: Meropenem 1 GM VIAL IVPUSH ×3 (07:12→22:50)
[2024-10-14] MEDS: Omeprazole 20 MG CAPSULE.DR PO (07:12)
[2024-10-14] MEDS: 0.9 % Sodium Chloride Flush 3 ML SYRINGE IVFLUSH ×3 (07:13→21:32)
[2024-10-14] MEDS: predniSONE 10 MG TABLET PO (08:16)
[2024-10-14] MEDS: Apixaban 5 MG TABLET PO ×2 (08:16→21:32)
[2024-10-14] MEDS: Folic Acid 1 MG TABLET PO (08:16)
[2024-10-14] MEDS: Potassium Chloride ER 20 MEQ TAB.ER.PRT PO ×2 (08:17→21:32)
--- NOTE | 2024-10-14 08:43 | PC.NURSE ---
Pt repositioned, switched over to 3L via NC, tolerated well. Pt ate 75% of breakfast tray. Report complete Pt will be transported to room 384.
[2024-10-14 09:16] LABS: C Reactive Protein 5.83 mg/dL (< or = 0.50)
[2024-10-14] MEDS: iohexoL 350 MG/ML 100 ML INFUS..BTL IV (09:17)
[2024-10-14 11:12] LABS: Glucose, Whole Blood 157 mg/dL (60-115)
[2024-10-14] MEDS: Insulin Lispro 100 UNIT/ML 3 ML VIAL SUBCUT ×2 (12:08→16:41)
--- NOTE | 2024-10-14 16:10 | P.PNIM_ITS ---
Subjective Subjective Date of Service: 10/14/24 Interval History: Kelly with sasha pus no fever chronic dyspnea Review of Systems Review of Systems: Yes all other systems are reviewed and are negative Physical Exam 2 Vital Signs: Vital Signs: Last Vital Signs Temp 97.6 F 10/14/24 15:46 Pulse 82 10/14/24 15:46 Resp 18 10/14/24 15:46 BP 120/77 10/14/24 15:46 Pulse Ox 92 10/14/24 15:46 O2 Del Method Nasal Cannula 10/14/24 15:46 O2 Flow Rate 2 10/14/24 15:46 BMI result Body Mass Index 29.9 Gen: in no acute distress HEENT: sclera anicteric, moist mucus membranes Neck: supple Lungs: bilateral fine inspiratory crackles Heart: regular rate and rhythm, no murmurs Abd: soft, non-tender, non-distended : Kelly draining pus Ext: no edema Skin: warm/well-perfused Neuro: alert and oriented x3, no focal findings Psych: appropriate affect Objective Data Active Medications Acetaminophen (Acetaminophen 325 Mg Tablet) 650 mg PO Q6H PRN PRN Reason: Pain, Mild 1-3,fever,headache Last Admin: 10/14/24 04:59 Dose: 650 mg Documented By: LAURA Albuterol/Ipratropium (Albuterol/Iprat 2.5/0.5mg 3 Ml Ampul.Neb) 3 ml INHALE Q4H PRN PRN Reason: Shortness Of Breath Or Wheezing Apixaban (Apixaban 5 Mg Tablet) 5 mg PO BID [facility] Last Admin: 10/14/24 08:16 Dose: 5 mg Documented By: LAURA Calcium Carbonate (Calcium Carbonate 750 Mg Tab.Chew) 750 mg PO Q4H PRN PRN Reason: Heartburn Fluticasone Propionate (Fluticasone Propionate Nasal 16 Gm [place]) 2 spray NOSTRIL-B DAILY [facility] Last Admin: 10/14/24 10:29 Dose: Not Given Documented By: GARY Non-Admin Reason: Med Not Available Fluticasone/Vilanterol (Fluticasone/Vilanterol 100/25 Blst.W.Dev) 1 puff INHALE RDAILY [facility] Last Admin: 10/14/24 07:33 Dose: Not Given Documented By: TATE Non-Admin Reason: Patient Refused Folic Acid (Folic Acid 1 Mg Tablet) 1 mg PO DAILY [facility] Last Admin: 10/14/24 08:16 Dose: 1 mg Documented By: LAURA Glucose (Glucose Gel 15 Gm Gel..Gram.) 15 gm PO Q15M PRN; Protocol PRN Reason: per Hypoglycemia Standing Ord. Dextrose (D10) 250 mls @ 750 mls/hr IV Q15M PRN; Protocol PRN Reason: per Hypoglycemia Standing Ord. Insulin Human Lispro (Insulin Lispro 100 Unit/Ml 3 Ml Vial) 0 unit SUBCUT QIDACHS [facility]; Protocol Last Admin: 10/14/24 12:08 Dose: 2 unit Documented By: GARY Magnesium Hydroxide (Milk Of Magnesia 30 Ml Oral.Susp) 30 ml PO DAILY PRN PRN Reason: Constipation Melatonin (Melatonin 3 Mg Tablet) 6 mg PO BEDTIME PRN PRN Reason: Insomnia Meropenem (Meropenem 1 Gm Vial) 1 gm IVPUSH Q8H [facility] Last Admin: 10/14/24 16:01 Dose: 1 gm Documented By: GARY Omeprazole (Omeprazole 20 Mg Capsule.Dr) 20 mg PO DAILY@0630 [facility] Last Admin: 10/14/24 07:12 Dose: 20 mg Documented By: LAURA Ondansetron HCl (Ondansetron Hcl 4 Mg/2 Ml Vial) 4 mg IVPUSH Q8H PRN PRN Reason: Nausea and Vomiting Potassium Chloride (Potassium Chloride Er 20 Meq Tab.Er.Prt) 20 meq PO BID [facility] Last Admin: 10/14/24 08:17 Dose: 20 meq Documented By: LAURA Prednisone (Prednisone 10 Mg Tablet) 10 mg PO DAILY [facility] Last Admin: 10/14/24 08:16 Dose: 10 mg Documented By: LAURA Sodium Chloride (0.9 % Sodium Chloride Flush 3 Ml Syringe) 3 ml IVFLUSH QSHIFT [facility] Last Admin: 10/14/24 16:01 Dose: 3 ml Documented By: GARY Labs 10/13/24 14:41 10/14/24 05:31 Labs: Laboratory Results - last 24 hr 10/13/24 10/13/24 10/13/24 15:33 17:25 21:15 Hold Purple Top Anion Gap Estim Creat Clear Calc Estimated GFR POC Glucose 129 H Random Glucose Lactic Acid F/U @ 2Hr 2.1 H* Calcium Magnesium C-Reactive Protein Urine Color Yellow Urine Appearance Turbid Urine pH TNP Ur Specific [place] TNP Urine Protein TNP Urine Glucose (UA) TNP Urine Ketones TNP Urine Blood TNP Urine Nitrite TNP Ur Leukocyte Esterase TNP Urine RBC >20 H Urine WBC >50 H Urine WBC Clumps Present Ur Squamous Epith Cells 0-2 Urine Bacteria 3+ Hyaline Casts 0-2 10/14/24 10/14/24 10/14/24 05:31 06:39 11:08 Hold Purple Top SEE NOTE Anion Gap 9 L Estim Creat Clear Calc 123.3 Estimated GFR > 60 POC Glucose 113 157 H Random Glucose 113 Lactic Acid F/U @ 2Hr Calcium 8.5 D Magnesium 1.7 C-Reactive Protein 5.83 H Urine Color Urine Appearance Urine pH Ur Specific [place] Urine Protein Urine Glucose (UA) Urine Ketones Urine Blood Urine Nitrite Ur Leukocyte Esterase Urine RBC Urine WBC Urine WBC Clumps Ur Squamous Epith Cells Urine Bacteria Hyaline Casts CT A/P 10/14/24 1. Multifocal areas of consolidation in the lungs on a background of emphysema. This is most characteristic of multifocal pneumonia. 2. Cholelithiasis without CT findings of cholecystitis. 3. Prominent colonic stool without findings of obstruction. 4. Posttreatment change of the prostate gland with nonspecific fluid attenuation structure along the right aspect of the penile urethra on the most caudad axial image. Microbiology Microbiology Results: Microbiology 10/13/24 15:33 Urine Culture - Preliminary Urine Catheterized - Kelly Catheter Culture in progress. Assessment and Plan (1) Acute UTI: Status: Acute Plan d2 for 79yo chronically bed/wheelchair bound M at [facility] with IPF due to chronic eosinophilic PNA on 4L NC O2 at baseline, pAF on apixaban, hx ITP on chronic prednisone, HFrEF, metastatic prostate CA, urinary retention with chronic Kelly, dysphagia on honey-thick liquids, DM2, adjustment disorder with anxiety, IRIS on CPAP; sent in with confusion + purulent sediment in Kelly catheter. He had been discharged from [facility] 10/11/24 after admission for possible UTI and inability to change urinary catheter; culture grew ESBL E. coli but ultimately thought to have colonization rather than acute infection, so discharged off antibiotics. This admission found to be septic and encephalopathic. sepsis due to UTI acute encephalopathy due to infection - sasha pus in Kelly. Consult Urology. Continue meropenem 10/13-. Consult ID. Follow UCx question of multifocal pneumonia - also on meropenem as above. follow BCx, trend PCT, send urinary antigens for Legionella and pneumococcus hypoMg - repleted chronic HFrEF - furosemide held due to soft BP on admission BPH - doxazosin + tamsulosin held due to soft BP on admission hx ITP - continue prednisone 10 mg/d home dose; stress-dose HCT if becomes frankly hypotensive persistent AF - continue apixaban pulmonary fibrosis - continue home inhalers chronic hypoxic resp failure - continue O2, on 4L at baseline DM2 - finn-dose lispro dysphagia - honey liquids, NDD3 solids VTE ppx - apixaban dispo - eventual return to LTC In my clinical judgment, the patient requires continued inpatient hospitalization for the following reasons: IV ABX Total time managing care of this patient today: 45 minutes. Quality Stroke Does the patient have a stroke diagnosis?: No VTE Prior VTE?: No VTE Risk Level:: Medical - moderate - high VTE Device Contraindication: Treatment Not Indicated VTE Drug Contraindication: N/A - Med Ordered
[2024-10-14 16:12] LABS: Glucose, Whole Blood 151 mg/dL (60-115)
[2024-10-14 16:25] LABS: Procalcitonin 0.08 ng/mL
--- NOTE | 2024-10-14 18:10 | PC.NURSE ---
Patient refused admission assessment, screaming put my covers back on now, also refused to get repositioned, this Nurse and Nurse aide at the bed side.
[2024-10-14 20:32] LABS: Glucose, Whole Blood 142 mg/dL (60-115)
[2024-10-15 01:00] VITALS: RESP 16
[2024-10-15 03:06] VITALS: BP 149/60; PULSE 86; RESP 20; TEMP 36.1; O2SAT 92
[2024-10-15] MEDS: Meropenem 1 GM VIAL IVPUSH ×3 (06:14→22:59)
[2024-10-15] MEDS: Omeprazole 20 MG CAPSULE.DR PO (06:14)
[2024-10-15] MEDS: Folic Acid 1 MG TABLET PO (07:18)
[2024-10-15] MEDS: predniSONE 10 MG TABLET PO (07:18)
[2024-10-15] MEDS: Potassium Chloride ER 20 MEQ TAB.ER.PRT PO ×2 (07:18→20:57)
[2024-10-15] MEDS: Apixaban 5 MG TABLET PO ×2 (07:18→20:56)
[2024-10-15] MEDS: 0.9 % Sodium Chloride Flush 3 ML SYRINGE IVFLUSH ×3 (07:20→20:57)
[2024-10-15 07:33] LABS: Venous Blood Gas Refer to POC result
[2024-10-15 07:36] LABS: VBG Base Excess 21.6 mmol/L; VBG HCO3 49 mmol/L (22-26); VBG pCO2 71 mmHg; VBG pH 7.44 (7.32-7.43); VBG pO2 27 mmHg
[2024-10-15 07:45] LABS: Glucose, Whole Blood 104 mg/dL (60-115)
[2024-10-15 07:47] LABS: Hematocrit 32.4 % (42.0-52.0); Hemoglobin 9.5 g/dl (14.0-18.0); Mean Corpuscular HGB Conc 29.3 g/dl (31.0-36.0); Mean Corpuscular Hemoglobin 26.2 pg (27.0-33.0); Mean Corpuscular Volume 89.3 fL (80.0-98.0); Mean Platelet Volume 10.6 fL (9.4-12.4); Platelet Count 170 X10*3/uL (160-400); Red Blood Count 3.63 X10*6/uL (4.60-5.80); Red Cell Distribution Width 15.5 % (11.0-16.0); White Blood Count 12.2 X10*3/uL (4.8-10.8)
[2024-10-15 07:57] LABS: Anion Gap 10 (12-20); B Type Natriuretic Peptide 743 pg/mL (<100); Blood Urea Nitrogen 12 mg/dL (9-16); Calcium 8.9 mg/dL (8.4-10.2); Carbon Dioxide 39 mmol/L (22-29); Chloride 97 mmol/L (96-108); Estimated Glomerular Filt Rate > 60; Glucose Random 114 mg/dL (60-115); Potassium 4.6 mmol/L (3.3-5.1); Sodium 141 mmol/L (135-145)
[2024-10-15 08:17] VITALS: BP 146/82; PULSE 74; RESP 12; TEMP 37; O2SAT 93
--- NOTE | 2024-10-15 10:29 | PC.NURSE ---
Pt. pick and choose what care he wants from this Nurse. Yells at times to get his point across. Refused thorough skin assessment from this Nurse, has floating boots on which he refused to get them off.
--- NOTE | 2024-10-15 10:48 | P.PNIM_ITS ---
Subjective Subjective Date of Service: 10/15/24 Interval History: No fever, overall better Review of Systems Review of Systems: Yes all other systems are reviewed and are negative Physical Exam 2 Vital Signs: Vital Signs: Last Vital Signs Temp 98.6 F 10/15/24 08:17 Pulse 74 10/15/24 08:17 Resp 12 10/15/24 08:17 BP 146/82 H 10/15/24 08:17 Pulse Ox 93 10/15/24 08:17 O2 Del Method Nasal Cannula 10/15/24 08:17 O2 Flow Rate 3 10/15/24 08:17 BMI result Body Mass Index 29.9 General: AO X 2, no acute distress Resp: CTA bilateral CVS: S1,S2,RRR GI: +BS, NT, no distention Skin: No rash Neuro: motor grossly intact Psych: appropriate affect Objective Data Active Medications Acetaminophen (Acetaminophen 325 Mg Tablet) 650 mg PO Q6H PRN PRN Reason: Pain, Mild 1-3,fever,headache Last Admin: 10/14/24 04:59 Dose: 650 mg Documented By: SERRANZackery Albuterol/Ipratropium (Albuterol/Iprat 2.5/0.5mg 3 Ml Ampul.Neb) 3 ml INHALE Q4H PRN PRN Reason: Shortness Of Breath Or Wheezing Apixaban (Apixaban 5 Mg Tablet) 5 mg PO BID [facility] Last Admin: 10/15/24 07:18 Dose: 5 mg Documented By: GARY Calcium Carbonate (Calcium Carbonate 750 Mg Tab.Chew) 750 mg PO Q4H PRN PRN Reason: Heartburn Fluticasone Propionate (Fluticasone Propionate Nasal 16 Gm [place]) 2 spray NOSTRIL-B DAILY [facility] Last Admin: 10/14/24 10:29 Dose: Not Given Documented By: GARY Non-Admin Reason: Med Not Available Fluticasone/Vilanterol (Fluticasone/Vilanterol 100/25 Blst.W.Dev) 1 puff INHALE RDAILY [facility] Last Admin: 10/15/24 08:35 Dose: Not Given Documented By: TATE Non-Admin Reason: Patient Refused Folic Acid (Folic Acid 1 Mg Tablet) 1 mg PO DAILY [facility] Last Admin: 10/15/24 07:18 Dose: 1 mg Documented By: GARY Glucose (Glucose Gel 15 Gm Gel..Gram.) 15 gm PO Q15M PRN; Protocol PRN Reason: per Hypoglycemia Standing Ord. Dextrose (D10) 250 mls @ 750 mls/hr IV Q15M PRN; Protocol PRN Reason: per Hypoglycemia Standing Ord. Insulin Human Lispro (Insulin Lispro 100 Unit/Ml 3 Ml Vial) 0 unit SUBCUT QIDACHS [facility]; Protocol Last Admin: 10/15/24 07:49 Dose: Not Given Documented By: GARY Non-Admin Reason: No Insulin Coverage Magnesium Hydroxide (Milk Of Magnesia 30 Ml Oral.Susp) 30 ml PO DAILY PRN PRN Reason: Constipation Melatonin (Melatonin 3 Mg Tablet) 6 mg PO BEDTIME PRN PRN Reason: Insomnia Meropenem (Meropenem 1 Gm Vial) 1 gm IVPUSH Q8H [facility] Last Admin: 10/15/24 06:14 Dose: 1 gm Documented By: BENNIE Omeprazole (Omeprazole 20 Mg Capsule.Dr) 20 mg PO DAILY@0630 [facility] Last Admin: 10/15/24 06:14 Dose: 20 mg Documented By: BENNIE Ondansetron HCl (Ondansetron Hcl 4 Mg/2 Ml Vial) 4 mg IVPUSH Q8H PRN PRN Reason: Nausea and Vomiting Potassium Chloride (Potassium Chloride Er 20 Meq Tab.Er.Prt) 20 meq PO BID [facility] Last Admin: 10/15/24 07:18 Dose: 20 meq Documented By: GARY Prednisone (Prednisone 10 Mg Tablet) 10 mg PO DAILY [facility] Last Admin: 10/15/24 07:18 Dose: 10 mg Documented By: GARY Sodium Chloride (0.9 % Sodium Chloride Flush 3 Ml Syringe) 3 ml IVFLUSH QSHIFT [facility] Last Admin: 10/15/24 07:20 Dose: 3 ml Documented By: GARY Labs 10/15/24 07:25 10/15/24 07:25 Labs: Laboratory Results - last 24 hr 10/14/24 10/14/24 10/14/24 05:31 11:08 16:03 MCV MCH MCHC RDW Plt Count MPV Absolute Nucleated RBC Nucleated RBC % (auto) VBG pH VBG pCO2 VBG pO2 VBG HCO3 VBG O2 Saturation VBG Base Excess Anion Gap Estim Creat Clear Calc Estimated GFR POC Glucose 157 H 151 H Random Glucose Calcium B-Natriuretic Peptide Procalcitonin 0.08 10/14/24 10/15/24 10/15/24 20:03 07:23 07:25 MCV 89.3 MCH 26.2 L MCHC 29.3 L RDW 15.5 Plt Count 170 MPV 10.6 Absolute Nucleated RBC 0.000 Nucleated RBC % (auto) 0.0 VBG pH VBG pCO2 VBG pO2 VBG HCO3 VBG O2 Saturation VBG Base Excess Anion Gap 10 L Estim Creat Clear Calc 131.0 Estimated GFR > 60 POC Glucose 142 H 104 Random Glucose 114 Calcium 8.9 B-Natriuretic Peptide 743 H Procalcitonin 10/15/24 07:31 MCV MCH MCHC RDW Plt Count MPV Absolute Nucleated RBC Nucleated RBC % (auto) VBG pH 7.44 H VBG pCO2 71 VBG pO2 27 VBG HCO3 49 H VBG O2 Saturation 31.0 VBG Base Excess 21.6 Anion Gap Estim Creat Clear Calc Estimated GFR POC Glucose Random Glucose Calcium B-Natriuretic Peptide Procalcitonin Microbiology Microbiology Results: Microbiology 10/13/24 15:33 Urine Culture - Final Urine Catheterized - Kelly Catheter 10/13/24 14:42 Blood Culture - Preliminary Blood - Venous No growth after 24 hours. 10/13/24 14:43 Blood Culture - Preliminary Blood - Venous No growth after 24 hours. 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 He had been discharged from [facility] 10/11/24 after admission for possible UTI and inability to change urinary catheter; culture grew ESBL E. coli but ultimately thought to have colonization rather than acute infection, so discharged off antibiotics. This admission found to be septic and encephalopathic. sepsis due to UTI, Urine Cx negative acute encephalopathy due to infection - sasha pus in Kelly. Consult Urology. Continue meropenem 10/13-. Consult ID. question of multifocal pneumonia - also on meropenem as above. follow BCx, trend PCT, send urinary antigens for Legionella and pneumococcus hypoMg - repleted, check chronic HFrEF - BPs better, resume lasix BPH - doxazosin + tamsulosin restart subce BP better hx ITP - continue prednisone 10 mg/d home dose; stress-dose HCT if becomes frankly hypotensive persistent AF - continue apixaban pulmonary fibrosis - continue home inhalers chronic hypoxic resp failure - continue O2, on 4L at baseline DM2 - finn-dose lispro dysphagia - honey liquids, NDD3 solids VTE ppx - apixaban dispo - eventual return to LTC In my clinical judgment, the patient requires continued inpatient hospitalization for the following reasons: IV ABX Total time managing care of this patient today: 45 minutes. Quality Stroke Does the patient have a stroke diagnosis?: No VTE Prior VTE?: No VTE Risk Level:: Medical - moderate - high VTE Device Contraindication: Treatment Not Indicated VTE Drug Contraindication: N/A - Med Ordered
[2024-10-15 11:03] LABS: Magnesium 1.7 mg/dL (1.6-2.6)
[2024-10-15 11:34] LABS: Glucose, Whole Blood 147 mg/dL (60-115)
--- NOTE | 2024-10-15 11:41 | P.CNUR_ITS ---
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 EMS was apparently called by family who were concerned about patient's status, rather than from facilities staff. Pt was recently discharged from [facility] 2 days prior on 10/11/2024 after being admitted for evaluation of potential UTI and urinary retention with inability to changes catheter at rehab. Pt initially started on ceftriaxone, but urine culture on 10/05 grew Proteus mirabilis and E coli consistent with ESBL and resistant to ceftriaxone. Pt was initially switched to meropenem. Infectious Disease was consulted and stopped all antibiotics as they thought pt was colonized rather than acutely infected. Pt was discharged back to facility not on antibiotics. Presents with to purulent urine draining for pickering catheter. CTAP: Bilateral renal cysts, radiation beads seen within the prostate gland. Pickering catheter is seen within a decompressed urinary b ladder.On the most caudad axial image, there is a fluid attenuation structure to the right of the Pickering catheter in the region of the proximal penile urethra measuring 1.4 x 2.0 cm in size. Review of Systems 2 Review of Systems: Yes all other systems are reviewed and are negative Constitutional: Constitutional: Reports no additional constitutional complaints Eyes: Eyes: Reports no additional eye complaints ENT: Reports system reviewed and no additional complaints, except as documented Cardiovascular: Cardiovascular: Reports no additional cardiovascular complaints Respiratory: Respiratory: Reports no additional respiratory complaints Gastrointestinal: Gastrointestinal: Reports no additional gastrointestinal complaints Genitourinary: Genitourinary: Reports as per HPI Musculoskeletal: Musculoskeletal: Reports no additional musculoskeletal complaints Integumentary/Breasts: Skin/Breast: Reports system reviewed and no additional complaints, except as docu Neurologic: Reports system reviewed and no additional complaints, except as documented Psychiatric: Psychiatric: Reports no additional psychiatric complaints Endocrine: Endocrine: Reports no additional endocrine complaints Hematologic/Lymphatic: Hematologic/Lymphatic: Reports no additional hematologic/lymphatic complaints Allergic/Immunologic: Allergic/Immunologic: Reports no additional allergic/immunologic complaints [facility] Past Medical History Medical History (Updated 10/15/24 @ 11:47 by Gonzalo Weems MD) Obstructive sleep apnea Generalized anxiety disorder Adjustment disorder Non-insulin dependent type 2 diabetes mellitus Dysphagia Heart failure with reduced ejection fraction Persistent atrial fibrillation Idiopathic pulmonary fibrosis Prostate cancer Chronic indwelling Pickering catheter Social History Social History Household Members: Other Household Members Other:: roomate Housing: Halfway Do you presently have visiting nurse or other home services: Yes (care home) Alcohol intake: never Patient Tobacco Use Status: Never used Tobacco Smoked in Last 30 Days: No e-Cigarette/Vaping Use: Never Used Patient Interested in Nicotine Replacement: No Patient Given Instructions on How to Stop Smoking: No Second Hand Smoke Exposure: No Use of substances other than those prescribed or required for medical reasons: No Substance Use Frequency: Chronic Longstanding Currently Displaying Signs/Symptoms of Drug Intoxication Withdrawal: No Any prior treatment program specific to substance use: No Have you been hit, kicked, punched, or otherwise hurt by someone within the past year? If so, by whom?: No Do you feel safe in your current relationship?: No Current Relationship Is there a partner from a previous relationship who is making you feel unsafe now?: No Are you made to feel afraid or neglected: No Advance Directives: Yes Advance Directives Information Provided: Yes Advance Directives on File: No Advance Directives Date on File: 10/14/24 Do you have a plan to hurt others: No Plan Recently lost weight without trying: Unsure How much weight loss: Unsure Eating poorly because of decreased appetite: Yes Nutrition screen score: 5 Nutrition Risks: Dental problems and Difficulty swallowing Poor oral hygiene: Yes service: No Meds Allergies Allergy/AdvReac Type Severity Reaction Status Date / Time latex Allergy Rash Verified 10/14/24 10:41 Active Medications: Current Medications Acetaminophen (Acetaminophen 325 Mg Tablet) 650 mg PO Q6H PRN PRN Reason: Pain, Mild 1-3,fever,headache Last Admin: 10/14/24 04:59 Dose: 650 mg Albuterol/Ipratropium (Albuterol/Iprat 2.5/0.5mg 3 Ml Ampul.Neb) 3 ml INHALE Q4H PRN PRN Reason: Shortness Of Breath Or Wheezing Apixaban (Apixaban 5 Mg Tablet) 5 mg PO BID [facility] Last Admin: 10/15/24 07:18 Dose: 5 mg Calcium Carbonate (Calcium Carbonate 750 Mg Tab.Chew) 750 mg PO Q4H PRN PRN Reason: Heartburn Doxazosin Mesylate (Doxazosin Mesylate 2 Mg Tablet) 4 mg PO BID [facility]; Protocol Fluticasone Propionate (Fluticasone Propionate Nasal 16 Gm [place]) 2 spray NOSTRIL-B DAILY [facility] Last Admin: 10/14/24 10:29 Dose: Not Given Fluticasone/Vilanterol (Fluticasone/Vilanterol 100/25 Blst.W.Dev) 1 puff INHALE RDAILY [facility] Last Admin: 10/15/24 08:35 Dose: Not Given Folic Acid (Folic Acid 1 Mg Tablet) 1 mg PO DAILY [facility] Last Admin: 10/15/24 07:18 Dose: 1 mg Furosemide (Furosemide 40 Mg Tablet) 40 mg PO BID [facility]; Protocol Glucose (Glucose Gel 15 Gm Gel..Gram.) 15 gm PO Q15M PRN; Protocol PRN Reason: per Hypoglycemia Standing Ord. Dextrose (D10) 250 mls @ 750 mls/hr IV Q15M PRN; Protocol PRN Reason: per Hypoglycemia Standing Ord. Insulin Human Lispro (Insulin Lispro 100 Unit/Ml 3 Ml Vial) 0 unit SUBCUT QIDACHS [facility]; Protocol Last Admin: 10/15/24 11:37 Dose: Not Given Magnesium Hydroxide (Milk Of Magnesia 30 Ml Oral.Susp) 30 ml PO DAILY PRN PRN Reason: Constipation Melatonin (Melatonin 3 Mg Tablet) 6 mg PO BEDTIME PRN PRN Reason: Insomnia Meropenem (Meropenem 1 Gm Vial) 1 gm IVPUSH Q8H [facility] Last Admin: 10/15/24 06:14 Dose: 1 gm Omeprazole (Omeprazole 20 Mg Capsule.Dr) 20 mg PO DAILY@0630 [facility] Last Admin: 10/15/24 06:14 Dose: 20 mg Ondansetron HCl (Ondansetron Hcl 4 Mg/2 Ml Vial) 4 mg IVPUSH Q8H PRN PRN Reason: Nausea and Vomiting Potassium Chloride (Potassium Chloride Er 20 Meq Tab.Er.Prt) 20 meq PO BID [facility] Last Admin: 10/15/24 07:18 Dose: 20 meq Prednisone (Prednisone 10 Mg Tablet) 10 mg PO DAILY [facility] Last Admin: 10/15/24 07:18 Dose: 10 mg Sodium Chloride (0.9 % Sodium Chloride Flush 3 Ml Syringe) 3 ml IVFLUSH QSHIFT [facility] Last Admin: 10/15/24 07:20 Dose: 3 ml Tamsulosin HCl (Tamsulosin Hcl 0.4 Mg Capsule) 0.4 mg PO DAILY [facility] Home Medications ?Medication ?Instructions ?Recorded ?Confirmed ?Last Taken ?Type acetaminophen 500 mg tablet 1,000 mg PO BID 10/13/24 10/13/24 Unknown History apixaban 5 mg tablet (Eliquis) 5 mg PO BID 10/13/24 10/13/24 Unknown History clotrimazole 1 % topical cream 1 appl topical DAILY PRN Rash 10/13/24 10/13/24 Unknown History doxazosin 4 mg tablet 4 mg PO BID 10/13/24 10/13/24 Unknown History fluticasone 100 mcg-salmeterol 50 1 inh inhalation BID 10/13/24 10/13/24 Unknown History mcg/dose blistr powdr for inhalation (Advair Diskus) fluticasone propionate 50 2 spray intranasal DAILY 10/13/24 10/13/24 Unknown History mcg/actuation nasal spray,suspension folic acid 1 mg tablet 1 mg PO DAILY 10/13/24 10/13/24 Unknown History furosemide 40 mg tablet 40 mg PO BID 10/13/24 10/13/24 Unknown History ipratropium 0.5 mg-albuterol 3 mg 3 ml inhalation Q4H PRN Shortness 10/13/24 10/13/24 Unknown History (2.5 mg base)/3 mL nebulization Of Breath Or Wheezing soln metformin 500 mg tablet 500 mg PO BID 10/13/24 10/13/24 Unknown History omeprazole 20 mg capsule,delayed 20 mg PO DAILY 10/13/24 10/13/24 Unknown History release potassium chloride 20 mEq 20 meq PO BID 10/13/24 10/13/24 Unknown History tablet,extended release(part/cryst) prednisone 10 mg tablet 10 mg PO DAILY 10/13/24 10/13/24 Unknown History tamsulosin 0.4 mg capsule 0.4 mg PO DAILY 10/13/24 10/13/24 Unknown History Physical Exam 2 Vital Signs: Vital Signs: Last Vital Signs Temp 98.6 F 10/15/24 08:17 Pulse 74 10/15/24 08:17 Resp 12 10/15/24 08:17 BP 146/82 H 10/15/24 08:17 Pulse Ox 93 10/15/24 08:17 O2 Del Method Nasal Cannula 10/15/24 08:17 O2 Flow Rate 3 10/15/24 08:17 BMI result Body Mass Index 29.9 Const: General: no acute distress and well developed O rientation/consciousness: patient oriented x3 HEENT: Head: Yes normocephalic and Yes atraumatic Eyes: Conjunctivae: conjunctivae normal Neck: Neck: Yes normal visual inspection Chest: Chest palpation & inspection: normal inspection of the chest Resp: Effort & Inspection: normal respiratory effort Cardio: Rate: regular rate GI: Inspection: Yes normal to inspection Palpation (GI): Soft to palpation : Scrotum: scrotum normal Neuro: General: patient oriented x3 Psych: Appearance: grossly normal Affect: normal affect Results Labs 10/16/24 05:23 10/16/24 05:23 Labs: Abnormal lab results 10/14/24 10/14/24 10/15/24 Range/Units 16:03 20:03 07:25 WBC 12.2 H (4.8-10.8) X10*3/uL RBC 3.63 L (4.60-5.80) X10*6/uL Hgb 9.5 L (14.0-18.0) g/dl Hct 32.4 L (42.0-52.0) % MCH 26.2 L (27.0-33.0) pg MCHC 29.3 L (31.0-36.0) g/dl VBG pH (7.32-7.43) VBG HCO3 (22-26) mmol/L Carbon Dioxide 39 H (22-29) mmol/L Anion Gap 10 L (12-20) POC Glucose 151 H 142 H (60-115) mg/dL B-Natriuretic Peptide 743 H (<100) pg/mL 10/15/24 10/15/24 Range/Units 07:31 11:30 WBC (4.8-10.8) X10*3/uL RBC (4.60-5.80) X10*6/uL Hgb (14.0-18.0) g/dl Hct (42.0-52.0) % MCH (27.0-33.0) pg MCHC (31.0-36.0) g/dl VBG pH 7.44 H (7.32-7.43) VBG HCO3 49 H (22-26) mmol/L Carbon Dioxide (22-29) mmol/L Anion Gap (12-20) POC Glucose 147 H (60-115) mg/dL B-Natriuretic Peptide (<100) pg/mL Short CBC 10/15/24 Range/Units 07:25 WBC 12.2 H (4.8-10.8) X10*3/uL Hgb 9.5 L (14.0-18.0) g/dl Hct 32.4 L (42.0-52.0) % Plt Count 170 (160-400) X10*3/uL BMP 10/15/24 07:25 Sodium 141 Potassium 4.6 Chloride 97 Carbon Dioxide 39 H BUN 12 Creatinine 0.52 Calcium 8.9 Urine 10/13/24 Range/Units 15:33 Urine Color Yellow Urine Appearance Turbid Urine pH TNP Ur Specific [place] TNP Urine Protein TNP Urine Glucose (UA) TNP Imaging Abdomen CT scan report/results: report reviewed and image reviewed CT scan - pelvis: report reviewed and image reviewed Additional studies: Date of Service: 10/14/24 CLINICAL HISTORY: sepsis, r o renal abscess Exam: CT of the abdomen and pelvis with intravenous contrast. Comparison: None. Findings: Images degraded by patient motion. CT abdomen: Multifocal areas of consolidation are identified within the lung bases. Paraseptal emphysematous changes are also evident. Small right pleural effusion with trace left pleural effusion. Bones are osteopenic. Multilevel degenerative change throughout the thoracolumbar spine with bony ankylosis at L2-3. No acute fracture. Moderate coronary artery calcifications. No focal lesions identified within the liver, spleen, pancreas, or adrenal glands. Densely calcified gallstones are seen filling the gallbladder. No pericholecystic induration is identified. Bilateral renal cysts without solid mass or hydronephrosis. Small bowel loops are of normal caliber. No free fluid or free air. CT pelvis: Myyeeimb-ac-psypd amount of stool throughout the colon. 6 cm stool ball seen within the rectum. Moderate to severe sigmoid diverticulosis without diverticulitis. There is vascular calcification of the abdominal aorta and iliac arteries. Numerous radiation beads seen within the prostate gland. Pickering catheter is seen within a decompressed urinary bladder. On the most caudad axial image, there is a fluid attenuation structure to the right of the Pickering catheter in the region of the proximal penile urethra measuring 1.4 x 2.0 cm in size. No enlarged lymph nodes. Impression: 1. Multifocal areas of consolidation in the lungs on a background of emphysema. This is most characteristic of multifocal pneumonia. 2. Cholelithiasis without CT findings of cholecystitis. 3. Prominent colonic stool without findings of obstruction. 4. Posttreatment change of the prostate gland with nonspecific fluid attenuation structure along the right aspect of the penile urethra on the most caudad axial image. Assessment and Plan (1) UTI (urinary tract infection): Status: Acute (2) History of prostate cancer: Status: Acute (3) Chronic indwelling Pickering catheter: Status: Acute (4) Abnormal finding on imaging: Status: Acute On the most caudad axial image, there is a fluid attenuation structure to the right of the Pickering catheter in the region of the proximal penile urethra measuring 1.4 x 2.0 cm in size. Unclear clinical significance Plan h/o of ESBL. Continue pickering. On IV abx Procedures Date of Service Date of Service: 10/16/24
--- NOTE | 2024-10-15 15:48 | MHC.CM.PN ---
PT IS A LTC RESIDENT OF [facility] WHERE SHE WILL RETURN AT DC COPY OF HCP REQUESTED FROM [facility] CM ATTEMPTED TO REACH SONCHRIS AT NUMBER ON FILE, HOWEVER IT IS OUT OF SERVICES CONTACT INFO FOR NOK REQUESTED FROM [facility] BLS TRANSPORT NEEDED
[2024-10-15 16:00] VITALS: BP 102/63; PULSE 77; RESP 14; TEMP 36.2; O2SAT 95
[2024-10-15] MEDS: Acetaminophen 325 MG TABLET 650 MG PO ×2 (16:19→22:19)
[2024-10-15 16:41] LABS: Glucose, Whole Blood 143 mg/dL (60-115)
[2024-10-15 19:40] LABS: Glucose, Whole Blood 179 mg/dL (60-115)
[2024-10-15 19:52] VITALS: BP 120/72; PULSE 95; RESP 18; TEMP 36.3; O2SAT 98
[2024-10-15] MEDS: Furosemide 40 MG TABLET PO (20:56)
[2024-10-15] MEDS: Doxazosin Mesylate 2 MG TABLET 4 MG PO (20:56)
[2024-10-15] MEDS: Insulin Lispro 100 UNIT/ML 3 ML VIAL SUBCUT (20:57)
[2024-10-15 22:53] VITALS: PULSE 94; RESP 38; O2SAT 72
[2024-10-16 04:00] VITALS: BP 100/50; PULSE 72; RESP 18; TEMP 36.3; O2SAT 97
[2024-10-16 05:01] VITALS: RESP 22
[2024-10-16] MEDS: Omeprazole 20 MG CAPSULE.DR PO (06:39)
[2024-10-16] MEDS: Meropenem 1 GM VIAL IVPUSH ×2 (06:39→15:22)
[2024-10-16] MEDS: Acetaminophen 325 MG TABLET 650 MG PO ×3 (06:40→21:31)
[2024-10-16 07:04] LABS: Hematocrit 32.2 % (42.0-52.0); Hemoglobin 9.6 g/dl (14.0-18.0); Mean Corpuscular HGB Conc 29.8 g/dl (31.0-36.0); Mean Corpuscular Hemoglobin 26.4 pg (27.0-33.0); Mean Corpuscular Volume 88.5 fL (80.0-98.0); Mean Platelet Volume 11.6 fL (9.4-12.4); Platelet Count 167 X10*3/uL (160-400); Red Blood Count 3.64 X10*6/uL (4.60-5.80); Red Cell Distribution Width 15.5 % (11.0-16.0); White Blood Count 8.9 X10*3/uL (4.8-10.8)
[2024-10-16 07:30] LABS: Anion Gap 9 (12-20); Blood Urea Nitrogen 11 mg/dL (9-16); Calcium 8.5 mg/dL (8.4-10.2); Carbon Dioxide 42 mmol/L (22-29); Chloride 94 mmol/L (96-108); Creatinine Clr Calc Pharmacy 136.2; Estimated Glomerular Filt Rate > 60; Glucose Random 100 mg/dL (60-115); Potassium 4.3 mmol/L (3.3-5.1); Sodium 141 mmol/L (135-145)
[2024-10-16 07:32] VITALS: BP 103/56; PULSE 99; RESP 19; TEMP 36.5; O2SAT 95
[2024-10-16 07:45] LABS: Glucose, Whole Blood 99 mg/dL (60-115)
[2024-10-16] MEDS: Folic Acid 1 MG TABLET PO (08:40)
[2024-10-16] MEDS: Apixaban 5 MG TABLET PO ×2 (08:40→20:44)
[2024-10-16] MEDS: Potassium Chloride ER 20 MEQ TAB.ER.PRT PO ×2 (08:41→20:44)
[2024-10-16] MEDS: Furosemide 40 MG TABLET PO (08:41)
[2024-10-16] MEDS: Tamsulosin HCL 0.4 MG CAPSULE PO (08:41)
[2024-10-16] MEDS: predniSONE 10 MG TABLET PO (08:41)
[2024-10-16] MEDS: Doxazosin Mesylate 2 MG TABLET 4 MG PO (08:41)
[2024-10-16] MEDS: 0.9 % Sodium Chloride Flush 3 ML SYRINGE IVFLUSH ×3 (08:44→20:44)
[2024-10-16 11:29] LABS: Glucose, Whole Blood 148 mg/dL (60-115)
--- NOTE | 2024-10-16 12:43 | HO.WOUND ---
Wound Consult: Initial 79yr old Male? [place] [facility] [place] - See progress notes and H&P for detailed history.? Wound consult placed for Back and Buttock wound POA.? Arrival to bedside Patient was not agreeable to assessment. He refused turning and assessment at this time. I attempted to educate him on the importance of reposition and assessment - he was frustrated and refused. Patient is incontinent at times - discussed with direct care team next time incontinence care is provided they will TT this communications writer to come for assessment. At this time He is noted to be off loaded with pillows and ARNOLD pump is in use. Recommend Barrier cream to buttock area twice daily. ? Recommendations: 1. Turn and Reposition every 2 hours and as needed for patient comfort.? Use pillows or wedges to support off loading positions. 2. Off Load all bony prominences with use of pillows and heel boots if needed.? Apply Preventative foams where needed. ? 3. Monitor for incontinence and moisture control, use barrier creams when needed for prevention and treatment. 4. Provide adequate and supplemental nutrition.? 5. Continue low air loss mattress. 6. When applicable maintain blood glucose levels per Providers order. 7. Buttock - Routine cleaning, apply barrier cream twice daily and PRN after episodes of incontinence. Re-consult wound care Nurse for wound deterioration or wound changes.
--- NOTE | 2024-10-16 12:50 | P.CDIM_ITS ---
PROVIDER RESPONSE TEXT: To clarify, the appropriate diagnosis supported by the clinical indicators: Yes, UTI is related to / associated with / due to Kelly catheter QUERY TEXT: PHYSICIAN'S DOCUMENTATION REQUEST Date of Query: 10/16/2024 11:47 AM EST Patient Name: Kenji Perales Admit Date: 10/14/2024 Dear Pedrito Caldera MD, A review of the medical record indicates additional documentation may be needed. Please review below and update the documentation accordingly. Documentation includes the conditions of UTI and Kelly catheter. Clinical Indicators: urine culture negative sasha pus, purulent sediment in Kelly catheter Urology consult pending IV Meropenem Please clarify the relationship between these conditions: Yes, UTI is related to / associated with / due to Kelly catheter No, UTI is not related to / associated with / due to Kelly catheter Other (explain) Clinically unable to determine (explain) Thank you, Anabella Tong RN Use of terms such as suspected, likely, concern for, or probable (associated with a specific diagnosi s that is being evaluated, monitored, or treated as if it exists) are acceptable and can be coded in the inpatient se tting, when documented at the time of discharge. Please use your independent medical judgment in providing your response. THIS QUERY IS PART OF THE PERMANENT MEDICAL RECORD
--- NOTE | 2024-10-16 13:55 | P.PNUR_ITS ---
Subjective Subjective Date of Service: 10/16/24 Patient reports: feels better Interval history: Urine c/s 10/13/24-->100,000 mixed bacteria. Urine draining well. Physical Exam 2 Vital Signs: Vital Signs: Last Vital Signs Temp 97.7 F 10/16/24 07:32 Pulse 99 10/16/24 07:32 Resp 19 10/16/24 07:32 BP 103/56 L 10/16/24 07:32 Pulse Ox 95 10/16/24 07:32 O2 Del Method Nasal Cannula 10/16/24 07:32 O2 Flow Rate 3 10/16/24 07:32 BMI result Body Mass Index 29.9 Urology Results Labs 10/16/24 05:23 10/16/24 05:23 Labs: Laboratory Results - last 24 hr 10/15/24 10/15/24 10/16/24 16:38 19:30 05:23 WBC 8.9 RBC 3.64 L Hgb 9.6 L Hct 32.2 L MCV 88.5 MCH 26.4 L MCHC 29.8 L RDW 15.5 Plt Count 167 MPV 11.6 Absolute Nucleated RBC 0.000 Nucleated RBC % (auto) 0.0 Sodium 141 Potassium 4.3 Chloride 94 L Carbon Dioxide 42 H* Anion Gap 9 L BUN 11 Creatinine 0.50 Estim Creat Clear Calc 136.2 Estimated GFR > 60 POC Glucose 143 H 179 H Random Glucose 100 Calcium 8.5 10/16/24 10/16/24 07:31 11:26 WBC RBC Hgb Hct MCV MCH MCHC RDW Plt Count MPV Absolute Nucleated RBC Nucleated RBC % (auto) Sodium Potassium Chloride Carbon Dioxide Anion Gap BUN Creatinine Estim Creat Clear Calc Estimated GFR POC Glucose 99 148 H Random Glucose Calcium Progress Note: A&P Assessment and plan (1) Chronic indwelling Kelly catheter: Status: Acute (2) History of prostate cancer: Status: Acute (3) UTI (urinary tract infection): Status: Acute (4) Abnormal finding on imaging: Status: Acute Assessment and Plan: On the most caudad axial image, there is a fluid attenuation structure to the right of the Kelly catheter in the region of the proximal penile urethra measuring 1.4 x 2.0 cm in size. Unclear clinical significance Plan Urine less cloudy, draining well. Outpatient follow up Time Spent With Patient Time: Total time managing care of this patient today ____ minutes. Progress Note: Quality Stroke Does the patient have a stroke diagnosis?: No
--- NOTE | 2024-10-16 14:26 | MHC.CM.PN ---
Per MD not medically cleared, awaiting ID eval. CM will continue to follow.
--- NOTE | 2024-10-16 14:30 | HO.WOUND ---
Wound Consult: Initial 79yr old?[place] admitted [place] [facility] [place] - See progress notes and H&P for detailed history.? Wound consult placed for Buttock and Back.? Patient currently agreeable to assessment and photo documentation.? Incontinence care provided for bowel incontinence. He reports he is aware of the wound to his sacrum buttock area - he reports they use barrier cream to treat the area and it was resolving last he knew. Assessment detailed below. Although patient was agreeable to assessment he is extremely particular in his willingness to move and be repositioned. His approach is rude at times and repeatedly asked this advertising writer if she was stupid or deaf. The patient was reminded that [facility] stands by their operating principles of respect. I was not able to see an injury to his back given the positions he would allow us to put him in. Direct care team aware will attempt back assessment at future date and time. Sacrum Etiology: ??Stage 2 Pressure Injury Present on Admission Measurements: see charting for details Wound Bed: red maroon resolving partial thickness tissue loss Drainage / Odor: None Edges: ? irregular Idalmis wound: ?MASD - No Induration, Fluctuance or Warmth noted Pain: Tenderness reported Goals of Treatment: ? Barrier cream and off load pressure Recommendations: 1. Turn and Reposition every 2 hours and as needed for patient comfort.? Use pillows or wedges to support off loading positions. 2. Off Load all bony prominences with use of pillows and heel boots if needed.? Apply Preventative foams where needed. ? 3. Monitor for incontinence and moisture control, use barrier creams when needed for prevention and treatment. 4. Provide adequate and supplemental nutrition.? 5. Continue low air loss mattress. 6. When applicable maintain blood glucose levels per Providers order. 7. Sacrum - Off Load Pressure with Q2 hr turns and use of pillows - Cleanse with PH balance spray or wipes, pat dry. ?Apply thin layer of Triad to sacrum and buttock - only pat and dab no scrub and rub when soiling occurs. Reapply thin layer PRN after each episode of incontinence. Re-consult wound care Nurse for wound deterioration or wound changes.
[2024-10-16 15:25] VITALS: BP 98/56; PULSE 101; RESP 18; TEMP 36; O2SAT 92
[2024-10-16 16:15] LABS: Glucose, Whole Blood 188 mg/dL (60-115)
[2024-10-16] MEDS: Insulin Lispro 100 UNIT/ML 3 ML VIAL SUBCUT ×2 (16:46→20:44)
--- NOTE | 2024-10-16 17:41 | P.PNIM_ITS ---
Subjective Subjective Date of Service: 10/16/24 Interval History: No new issues, apppear to be at baseline mental status Physical Exam 2 Vital Signs: Vital Signs: Last Vital Signs Temp 96.8 F 10/16/24 15:25 Pulse 101 H 10/16/24 15:25 Resp 18 10/16/24 15:25 BP 98/56 L 10/16/24 15:25 Pulse Ox 92 10/16/24 15:25 O2 Del Method Nasal Cannula 10/16/24 15:25 O2 Flow Rate 3 10/16/24 15:25 BMI result Body Mass Index 29.9 General: AO X 2, no acute distress Resp: CTA bilateral CVS: S1,S2,RRR GI: +BS, NT, no distention Skin: No rash : urine has sediments Neuro: motor grossly intact Psych: appropriate affect Objective Data Active Medications Acetaminophen (Acetaminophen 325 Mg Tablet) 650 mg PO Q6H PRN PRN Reason: Pain, Mild 1-3,fever,headache Last Admin: 10/16/24 15:22 Dose: 650 mg Documented By: JOSE ANTONIO Albuterol/Ipratropium (Albuterol/Iprat 2.5/0.5mg 3 Ml Ampul.Neb) 3 ml INHALE Q4H PRN PRN Reason: Shortness Of Breath Or Wheezing Amoxicillin/Clavulanate Potassium (Amoxicillin/Potassium Clav 500 Mg Tablet) 500 mg PO BID [facility] Apixaban (Apixaban 5 Mg Tablet) 5 mg PO BID [facility] Last Admin: 10/16/24 08:40 Dose: 5 mg Documented By: JOSE ANTONIO Calcium Carbonate (Calcium Carbonate 750 Mg Tab.Chew) 750 mg PO Q4H PRN PRN Reason: Heartburn Doxazosin Mesylate (Doxazosin Mesylate 2 Mg Tablet) 4 mg PO BID [facility]; Protocol Last Admin: 10/16/24 08:41 Dose: 4 mg Documented By: JOSE ANTONIO Fluticasone Propionate (Fluticasone Propionate Nasal 16 Gm [place]) 2 spray NOSTRIL-B DAILY [facility] Last Admin: 10/16/24 09:37 Dose: Not Given Documented By: JOSE ANTONIO Non-Admin Reason: Med Not Available Fluticasone/Vilanterol (Fluticasone/Vilanterol 100/25 Blst.W.Dev) 1 puff INHALE RDAILY [facility] Last Admin: 10/16/24 08:25 Dose: Not Given Documented By: TATE Non-Admin Reason: Patient Asleep Folic Acid (Folic Acid 1 Mg Tablet) 1 mg PO DAILY [facility] Last Admin: 10/16/24 08:40 Dose: 1 mg Documented By: JOSE ANTONIO Furosemide (Furosemide 40 Mg Tablet) 40 mg PO BID [facility]; Protocol Last Admin: 10/16/24 08:41 Dose: 40 mg Documented By: JOSE ANTONIO Glucose (Glucose Gel 15 Gm Gel..Gram.) 15 gm PO Q15M PRN; Protocol PRN Reason: per Hypoglycemia Standing Ord. Dextrose (D10) 250 mls @ 750 mls/hr IV Q15M PRN; Protocol PRN Reason: per Hypoglycemia Standing Ord. Insulin Human Lispro (Insulin Lispro 100 Unit/Ml 3 Ml Vial) 0 unit SUBCUT QIDACHS [facility]; Protocol Last Admin: 10/16/24 16:46 Dose: 2 unit Documented By: JOSE ANTONIO Magnesium Hydroxide (Milk Of Magnesia 30 Ml Oral.Susp) 30 ml PO DAILY PRN PRN Reason: Constipation Melatonin (Melatonin 3 Mg Tablet) 6 mg PO BEDTIME PRN PRN Reason: Insomnia Omeprazole (Omeprazole 20 Mg Capsule.Dr) 20 mg PO DAILY@0630 [facility] Last Admin: 10/16/24 06:39 Dose: 20 mg Documented By: KWAN Ondansetron HCl (Ondansetron Hcl 4 Mg/2 Ml Vial) 4 mg IVPUSH Q8H PRN PRN Reason: Nausea and Vomiting Potassium Chloride (Potassium Chloride Er 20 Meq Tab.Er.Prt) 20 meq PO BID [facility] Last Admin: 10/16/24 08:41 Dose: 20 meq Documented By: JOSE ANTONIO Prednisone (Prednisone 10 Mg Tablet) 10 mg PO DAILY [facility] Last Admin: 10/16/24 08:41 Dose: 10 mg Documented By: JOSE ANTONIO Sodium Chloride (0.9 % Sodium Chloride Flush 3 Ml Syringe) 3 ml IVFLUSH QSHIFT [facility] Last Admin: 10/16/24 15:30 Dose: 3 ml Documented By: JOSE ANTONIO Tamsulosin HCl (Tamsulosin Hcl 0.4 Mg Capsule) 0.4 mg PO DAILY [facility] Last Admin: 10/16/24 08:41 Dose: 0.4 mg Documented By: JOSE ANTONIO Labs 10/16/24 05:23 10/16/24 05:23 Labs: Laboratory Results - last 24 hr 10/15/24 10/16/24 10/16/24 19:30 05:23 07:31 MCV 88.5 MCH 26.4 L MCHC 29.8 L RDW 15.5 Plt Count 167 MPV 11.6 Absolute Nucleated RBC 0.000 Nucleated RBC % (auto) 0.0 Anion Gap 9 L Estim Creat Clear Calc 136.2 Estimated GFR > 60 POC Glucose 179 H 99 Random Glucose 100 Calcium 8.5 10/16/24 10/16/24 11:26 16:09 MCV MCH MCHC RDW Plt Count MPV Absolute Nucleated RBC Nucleated RBC % (auto) Anion Gap Estim Creat Clear Calc Estimated GFR POC Glucose 148 H 188 H Random Glucose Calcium Microbiology Microbiology Results: Microbiology 10/13/24 14:42 Blood Culture - Preliminary Blood - Venous No growth after 48 hours. 10/13/24 14:43 Blood Culture - Preliminary Blood - Venous No growth after 48 hours. 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 He had been discharged from [facility] 10/11/24 after admission for possible UTI and inability to change urinary catheter; culture grew ESBL E. coli but ultimately thought to have colonization rather than acute infection, so discharged off antibiotics. This admission found to be septic and encephalopathic. sepsis due to UTI, due to chronic indwelling pickering cath. Urine Cx negative acute encephalopathy due to infection - sasha pus in Pickering. Consult Urology. Continue meropenem 10/13-. Consult ID recommends changing to Augmentin question of multifocal pneumonia - also on meropenem to augmentin as above. follow BCx, trend PCT, send urinary antigens for Legionella and pneumococcus--pending hypoMg - repleted, check chronic HFrEF - BPs better, on lasix metabolic alkalosis due to lasix--diamox BPH - doxazosin + tamsulosin restart subce BP better hx ITP - continue prednisone 10 mg/d home dose; stress-dose HCT if becomes frankly hypotensive persistent AF - continue apixaban pulmonary fibrosis - continue home inhalers chronic hypoxic resp failure - continue O2, on 4L at baseline DM2 - finn-dose lispro dysphagia - honey liquids, NDD3 solids VTE ppx - apixaban dispo - eventual return to LTC In my clinical judgment, the patient requires continued inpatient hospitalization for the following reasons: IV ABX Total time managing care of this patient today: 45 minutes. Quality Stroke Does the patient have a stroke diagnosis?: No VTE Prior VTE?: No VTE Risk Level:: Medical - moderate - high VTE Device Contraindication: Treatment Not Indicated VTE Drug Contraindication: N/A - Med Ordered
[2024-10-16 17:56] LABS: Magnesium 1.6 mg/dL (1.6-2.6)
[2024-10-16] MEDS: acetaZOLAMIDE 250 MG TABLET PO (18:19)
[2024-10-16 19:22] VITALS: BP 114/58; PULSE 52; RESP 18; TEMP 36.2; O2SAT 95
[2024-10-16 19:57] LABS: Glucose, Whole Blood 155 mg/dL (60-115)
[2024-10-16] MEDS: Amoxicillin/Potassium Clav 500 MG TABLET PO (20:44)
[2024-10-16 21:45] VITALS: BP 111/68; PULSE 77; RESP 18; TEMP 36.2; O2SAT 93
[2024-10-17 02:24] VITALS: PULSE 94; RESP 24; O2SAT 66
[2024-10-17 04:21] VITALS: BP 117/60; PULSE 79; RESP 20; TEMP 36.6; O2SAT 93
[2024-10-17] MEDS: Omeprazole 20 MG CAPSULE.DR PO (06:11)
[2024-10-17 07:58] LABS: Glucose, Whole Blood 132 mg/dL (60-115)
[2024-10-17] MEDS: predniSONE 10 MG TABLET PO (09:23)
[2024-10-17] MEDS: Tamsulosin HCL 0.4 MG CAPSULE PO (09:23)
[2024-10-17] MEDS: Doxazosin Mesylate 2 MG TABLET 4 MG PO (09:23)
[2024-10-17] MEDS: Apixaban 5 MG TABLET PO (09:23)
[2024-10-17] MEDS: Furosemide 40 MG TABLET PO (09:23)
[2024-10-17] MEDS: Amoxicillin/Potassium Clav 500 MG TABLET PO (09:24)
[2024-10-17] MEDS: 0.9 % Sodium Chloride Flush 3 ML SYRINGE IVFLUSH (09:24)
[2024-10-17] MEDS: Potassium Chloride ER 20 MEQ TAB.ER.PRT PO (09:24)
[2024-10-17] MEDS: Folic Acid 1 MG TABLET PO (09:24)
[2024-10-17] MEDS: Acetaminophen 325 MG TABLET 650 MG PO (09:30)
--- NOTE | 2024-10-17 10:15 | P.DS_ITS ---
DS: Providers Provider Date of Service: 10/17/24 Date of admission: 10/13/24 20:07 Date of discharge: 10/17/24 Primary care physician: Yoselyn Ventura MD Consults: 10/13/24 20:12 Consult to Infectious Diseases Routine Consulting Provider: [facility] Reason for consultation: UTI w/sepsis, hx of ESBL bacteriuria 10/14/24 16:11 Consult to Urology Routine Consulting Provider: [facility] U[facility] Reason for consultation: Foely draining sasha pus 10/14/24 22:25 Consult to Wound Care Routine Reason for consultation: blanchable redness on back and buttocks DS: Diagnosis Discharge Diagnosis (1) UTI (urinary tract infection): Status: Acute (2) History of prostate cancer: Status: Acute (3) Chronic indwelling Pickering catheter: Status: Acute (4) Abnormal finding on imaging: Status: Acute DS: Summary Hospital Course Hospital Course: Chief Complaint: AMS Pt is a 79-year-old male with a PMH significant for?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 EMS was apparently called by family who were concerned about patient's status, rather than from facilities staff. Pt was recently discharged from [facility] days prior on 10/11/2024 after being admitted for evaluation of potential UTI and urinary retention with inability to changes catheter at rehab. Pt initially started on ceftriaxone, but urine culture on 10/05 grew Proteus mirabilis and E coli consistent with ESBL and resistant to ceftriaxone. Pt was initially switched to meropenem. Infectious Disease was consulted and stopped all antibiotics as they thought pt was colonized rather than acutely infected. Pt was discharged back to facility not on antibiotics. He did not have a leukocytosis at time of discharge. Of note, pt was previously admitted from 07/15-07/23 at [facility] for septic shock due to Proteus mirabilis UTI and bacteremia. Pt himself does not appear to have any acute complaints but is a difficult historian. Complains of chronic difficulty breathing and back and leg pain; unclear if different from baseline. Patient's Pickering catheter was replaced in the ED. Nursing notes patient's initial urine was thick, purulent, and pus-like. In the ED pt was tachypneic up to 25 and with soft BP as low as 96/46, satting at 98% on 4L OxyMask. Labs were significant for leukocytosis 12.8, H&H 9.5/31.6, lactic acid 2.9 with repeat 2.1, magnesium 1.5, BNP 848, and albumin 2.2. UA was thick and sediment noted and could not be run through urinalysis machine, but showed 3+ bacteria and >550 wbc's. CXR showed cardiomegaly, diffusely increased interstitial markings and superimposed hazy opacities in multiple areas. EKG demonstrated atrial fibrillation without evidence of significant ST elevations or depressions. Pt was treated with IVF, but sulfate, acetaminophen, albumin, ceftriaxone, and meropenem. 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 He had been discharged from [facility] 10/11/24 after admission for possible UTI and inability to change urinary catheter; culture grew ESBL E. coli but ultimately thought to have colonization rather than acute infection, so discharged off antibiotics. This admission found to be septic and encephalopathic. sepsis due to UTI, Urine Cx negative, has been treated with meropenem x 3 days given history of ESBL, however final culture is negative, and blood culture is negative for 48 hours. Will transition to oral Augmentin for a a total of 10 da ys per ID recommendation. Urology saw the patient and recommended continuing antibiotics. Urine is more clear but still has sediments. acute encephalopathy due to infection--back to his baseline question of multifocal pneumonia - also on meropenem as above. follow BCx, trend PCT, send urinary antigens for Legionella and pneumococcus hypoMg - repleted, check chronic HFrEF - BPs better, resume lasix BPH - doxazosin + tamsulosin restart subce BP better hx ITP - continue prednisone 10 mg/d home dose; stress-dose HCT if becomes frankly hypotensive persistent AF - continue apixaban pulmonary fibrosis - continue home inhalers chronic hypoxic resp failure - continue O2, on 4L at baseline DM2 - finn-dose lispro dysphagia - honey liquids, NDD3 solids Time Attestation Discharge Coordination Time (in mins): 40 Quality: Safe Use of Opioids Does Pt have an Active Cancer Diagnosis on the Problem List?: No Quality: Stroke Does the patient have a stroke diagnosis?: No Physical Exam Vital Signs: Vital Signs: Selected Entries 10/17/24 04:21 Temperature 97.8 F Pulse Rate 79 Respiratory Rate 20 Blood Pressure 117/60 Pulse Oximetry 93 DS: Data Data Completed and Pending Labs on day of discharge: Laboratory Results - last 24 hr 10/15/24 10/15/24 10/16/24 16:38 19:30 05:23 WBC 8.9 RBC 3.64 L Hgb 9.6 L Hct 32.2 L MCV 88.5 MCH 26.4 L MCHC 29.8 L RDW 15.5 Plt Count 167 MPV 11.6 Absolute Nucleated RBC 0.000 Nucleated RBC % (auto) 0.0 Sodium 141 Potassium 4.3 Chloride 94 L Carbon Dioxide 42 H* Anion Gap 9 L BUN 11 Creatinine 0.50 Estim Creat Clear Calc 136.2 Estimated GFR > 60 POC Glucose 143 H 179 H Random Glucose 100 Calcium 8.5 10/16/24 10/16/24 07:31 11:26 WBC RBC Hgb Hct MCV MCH MCHC RDW Plt Count MPV Absolute Nucleated RBC Nucleated RBC % (auto) Sodium Potassium Chloride Carbon Dioxide Anion Gap BUN Creatinine Estim Creat Clear Calc Estimated GFR POC Glucose 99 148 H Random Glucose Calcium Preliminary micro results at discharge 10/13/24 14:42 Blood Culture - Preliminary Blood - Venous No growth after 48 hours. 10/13/24 14:43 Blood Culture - Preliminary Blood - Venous No growth after 48 hours. Discharge Plan Discharge Anticipated Discharge Date/Time: 10/17/24 10:12 Patient Disposition: Xfer SNF Discharge Diagnosis: uti due to indwelling pickering catheter, sepsis Referrals: Yoselyn Ventura MD [Primary Care Provider] - 1 Week Discharge Medications: New amoxicillin-pot clavulanate 500-125 mg Tablet 1 tab PO BID Qty: 18 0RF Continued furosemide 40 mg tablet 40 mg PO BID metformin 500 mg tablet 500 mg PO BID prednisone 10 mg tablet 10 mg PO DAILY ipratropium-albuterol 0.5 mg-3 mg(2.5 mg base)/3 mL solution for nebulization 3 ml INHALATION Q4H PRN (Reason: Shortness Of Breath Or Wheezing) acetaminophen 500 mg Tablet 1,000 mg PO BID potassium chloride 20 mEq tablet,ER particles/crystals 20 meq PO BID tamsulosin 0.4 mg capsule 0.4 mg PO DAILY omeprazole 20 mg Capsule,Delayed Release(Dr/Ec) 20 mg PO DAILY doxazosin 4 mg tablet 4 mg PO BID Protocol: Hold for SBP< HOLD for SBP < : 110 folic acid 1 mg Tablet 1 mg PO DAILY fluticasone propion-salmeterol [Advair Diskus] 100-50 mcg/dose Blister With Device 1 inh INHALATION BID fluticasone propionate 50 mcg/actuation spray,suspension 2 spray INTRANASAL DAILY Rx Instructions: Alternating Nostrils clotrimazole 1 % cream 1 appl topical DAILY PRN (Reason: Rash) Eliquis 5 mg tablet 5 mg PO BID Discharge Orders: Discharge Order (Routine); Ordered 10/17/24 Ordered By: Pedrito Caldera Diet: Advance to usual diet Activity on Discharge: As tolerated Stand Alone Forms: Patient Portal Discharge page Print Language: Spanish Care Plan Goals: recovery from uti Health Concerns: uti, sepsis Plan of Treatment: take Augmentin as recommended and follow up with your doctor in a week Assessment: see above
[2024-10-17 11:08] LABS: Anion Gap 8 (12-20); Blood Urea Nitrogen 13 mg/dL (9-16); Calcium 8.4 mg/dL (8.4-10.2); Carbon Dioxide 40 mmol/L (22-29); Chloride 93 mmol/L (96-108); Creatinine Clr Calc Pharmacy 111.7; Estimated Glomerular Filt Rate > 60; Glucose Random 189 mg/dL (60-115); Potassium 4.2 mmol/L (3.3-5.1); Sodium 137 mmol/L (135-145)
[2024-10-17 11:35] LABS: Glucose, Whole Blood 173 mg/dL (60-115)
--- NOTE | 2024-10-17 11:39 | MHC.CM.PN ---
Addendum entered by Franci Wallace 10/17/24 12:05: BLS TRANSPORT BOOKED WITH [facility] FOR 1330 HOURS CM SPOKE TO PTS SON WHO IS AWARE OF DC PLAN/TIME Original Note: PT CLEARED TO DC BACK TO [facility] CM HAS ATTEMPTED TO REACH PTS SON X 2 AT NUMBER ON FILE, IT IS OUT OF ORDER CM RECEIVED A MESSAGE THAT SON HAD CALLED AND LEFT ANOTHER NUMBER: [phone] CM ATTEMPTED TO CONTACT HIM AT THAT NUMBER, IT WENT TO AND NO MESSAGE COULD BE LEFT DUE TO A FULL MAILBOX PT WILL DC BACK TO [facility] TODAY CM WILL ATTEMPT TO CONTACT [facility] AGAIN
[2024-10-17] MEDS: Insulin Lispro 100 UNIT/ML 3 ML VIAL SUBCUT (11:59)
[2024-10-17 13:14] VITALS: BP 101/61; PULSE 67; RESP 20; TEMP 36; O2SAT 95
--- NOTE | 2024-10-17 16:12 | P.CNID_ITS ---
History of Present Illness Data of Consult Service Date: 10/16/24 Requesting physician: Pedrito Caldera Primary Care Provider: MD ERIKA Gonzalez Reason for consult: recurrent resistant UTIs He presents with weakness and concern over haziness urine. He has had admission to [facility] for UTI with confusion and has had ESBL UTIs in past. Hd has no fever or chills now. Review of Systems 2 Review of Systems: Yes all other systems are reviewed and are negative PMFSH Past Medical History Medical History Obstructive sleep apnea Generalized anxiety disorder Adjustment disorder Non-insulin dependent type 2 diabetes mellitus Dysphagia Heart failure with reduced ejection fraction Persistent atrial fibrillation Idiopathic pulmonary fibrosis Prostate cancer Chronic indwelling Kelly catheter Family History Family history: reviewed and not pertinent Social History Social History Household Members: Other Household Members Other:: roomate Housing: Retirement Do you presently have visiting nurse or other home services: Yes ([facility]) Alcohol intake: never Patient Tobacco Use Status: Never used Tobacco e-Cigarette/Vaping Use: Never Used Second Hand Smoke Exposure: No Advance Directives Date on File: 10/14/24 service: No Meds Allergies Allergy/AdvReac Type Severity Reaction Status Date / Time latex Allergy Rash Verified 10/14/24 10:41 Home Medications ?Medication ?Instructions ?Recorded ?Confirmed ?Last Taken ?Type acetaminophen 500 mg tablet 1,000 mg PO BID 10/13/24 10/13/24 Unknown History apixaban 5 mg tablet (Eliquis) 5 mg PO BID 10/13/24 10/13/24 Unknown History clotrimazole 1 % topical cream 1 appl topical DAILY PRN Rash 10/13/24 10/13/24 Unknown History doxazosin 4 mg tablet 4 mg PO BID 10/13/24 10/13/24 Unknown History fluticasone 100 mcg-salmeterol 50 1 inh inhalation BID 10/13/24 10/13/24 Unknown History mcg/dose blistr powdr for inhalation (Advair Diskus) fluticasone propionate 50 2 spray intranasal DAILY 10/13/24 10/13/24 Unknown History mcg/actuation nasal spray,suspension folic acid 1 mg tablet 1 mg PO DAILY 10/13/24 10/13/24 Unknown History furosemide 40 mg tablet 40 mg PO BID 10/13/24 10/13/24 Unknown History ipratropium 0.5 mg-albuterol 3 mg 3 ml inhalation Q4H PRN Shortness 10/13/24 10/13/24 Unknown History (2.5 mg base)/3 mL nebulization Of Breath Or Wheezing soln metformin 500 mg tablet 500 mg PO BID 10/13/24 10/13/24 Unknown History omeprazole 20 mg capsule,delayed 20 mg PO DAILY 10/13/24 10/13/24 Unknown History release potassium chloride 20 mEq 20 meq PO BID 10/13/24 10/13/24 Unknown History tablet,extended release(part/cryst) prednisone 10 mg tablet 10 mg PO DAILY 10/13/24 10/13/24 Unknown History tamsulosin 0.4 mg capsule 0.4 mg PO DAILY 10/13/24 10/13/24 Unknown History Physical Exam 2 Vital Signs: Vital Signs: Last Vital Signs Temp 96.8 F 10/17/24 13:14 Pulse 67 10/17/24 13:14 Resp 20 10/17/24 13:14 BP 101/61 10/17/24 13:14 Pulse Ox 95 10/17/24 13:14 O2 Del Method Nasal Cannula 10/17/24 13:14 O2 Flow Rate 3.0 10/17/24 13:14 BMI result Body Mass Index 29.9 Const: General: cooperative HEENT: Head: Yes normal to inspection Face and sinus: Yes normal facial exam Mouth: Normal oral and palatal mucosa present Teeth and gingiva: d entition normal Eyes: General: appearance normal, both eyes and all related structures P upils: Equal, round and reactive pupils present Resp: Effort & Inspection: normal respiratory effort Cardio: Rate: regular rate Rhythm: regular rhythm GI: Palpation (GI): Soft to palpation and nontender : General: Yes no CVA tenderness Back/Spine/Pelvis: Back: no CVA tenderness Skin: General skin exam: no rashes or lesions noted Neuro: General: moves all extremities Cranial nerves: Yes Equal, round and reactive pupils present Extrem: General: Yes normal to inspection Psych: Appearance: grossly normal Results Labs 10/16/24 05:23 10/17/24 10:27 Labs: BMP 10/17/24 10:27 Sodium 137 Potassium 4.2 Chloride 93 L Carbon Dioxide 40 H* BUN 13 Creatinine 0.61 Calcium 8.4 Microbiology Microbiology Results: Microbiology 10/13/24 14:42 Blood - Venous Blood Culture - Preliminary No growth after 48 hours. 10/13/24 14:43 Blood - Venous Blood Culture - Preliminary No growth after 48 hours. 10/13/24 15:33 Urine Catheterized - Kelly Catheter Urine Culture - Final Assessment and Plan (1) Chronic indwelling Kelly catheter: Status: Acute (2) History of prostate cancer: Status: Acute (3) UTI (urinary tract infection): Status: Acute Plan Since no resistant UTI and better give him po Augmentin for 10 days.
[2024-10-18 15:49] LABS: Legionella Ag Urine Not Detected (Not Detected)
[2024-10-18 19:24] LABS: Strep Pneumo Ag urine Not Detected (Not Detected)
== END 2024-10-17 13:55 | disposition skilled nursing facility (03) | DRG 698 ==
LOC: HO.ED 19:16 → HO.EDOVER 20:25 → HO.S3 10-14 07:47
PROVIDERS: Emergency Medicine; Family Medicine; Internal Medicine; Physician Assistant; Admitting Provider Student in an Organized Health Care Education/Training Program; Emergency Provider Emergency Medicine Emergency Medical Services; PCP Internal Medicine; Visit Provider Internal Medicine
DX: T83.511A Infection and inflammatory reaction due to indwelling urethral catheter, initial encounter (principal); A41.9 Sepsis, unspecified organism; J18.9 Pneumonia, unspecified organism; J82.81 Chronic eosinophilic pneumonia; D69.3 Immune thrombocytopenic purpura; I48.19 Other persistent atrial fibrillation; J96.11 Chronic respiratory failure with hypoxia; E87.3 Alkalosis; R13.10 Dysphagia, unspecified; Z20.822 Contact with and (suspected) exposure to COVID-19; E83.42 Hypomagnesemia; N40.1 Benign prostatic hyperplasia with lower urinary tract symptoms; R33.8 Other retention of urine; J84.112 Idiopathic pulmonary fibrosis; E11.9 Type 2 diabetes mellitus without complications; N39.0 Urinary tract infection, site not specified; Z99.3 Dependence on wheelchair; Z87.440 Personal history of urinary (tract) infections; G47.33 Obstructive sleep apnea (adult) (pediatric); Z99.81 Dependence on supplemental oxygen; I95.9 Hypotension, unspecified; Z74.01 Bed confinement status; Z79.01 Long term (current) use of anticoagulants; Z79.51 Long term (current) use of inhaled steroids; Z79.84 Long term (current) use of oral hypoglycemic drugs; Z79.52 Long term (current) use of systemic steroids; Z79.899 Other long term (current) drug therapy
CPT/HCPCS: 0241U; 36415; 71045; 74177; 80048; 80076; 81001; 81003; 82803; 82947; 83605; 83735; 83880; 84145; 84484; 85025; 85027; 86140; 87040; 87086; 87449; 87899; 93005; 94660; 99285; C1758; J0131; J0696; J2185; J3475; J7120; P9047; Q9967

== ENCOUNTER → 2024-10-13 13:56 | Outpatient (BNV) | payer MEDICARE, MEDICAID, SELFPAY | PROVIDERS: Admitting Provider Student in an Organized Health Care Education/Training Program; Emergency Provider Emergency Medicine Emergency Medical Services; PCP Internal Medicine; Visit Provider Internal Medicine Cardiovascular Disease | DX: R94.31 Abnormal electrocardiogram [ECG] [EKG] (principal); R53.1 Weakness | CPT/HCPCS: 93010 ==

== ENCOUNTER → 2024-10-13 13:57 | Outpatient (BNV) | payer MEDICARE, MEDICAID, SELFPAY | PROVIDERS: Emergency Provider Emergency Medicine; PCP Internal Medicine; Visit Provider Radiology Diagnostic Radiology | DX: I51.7 Cardiomegaly (principal); R91.8 Other nonspecific abnormal finding of lung field | CPT/HCPCS: 71045 ==

== ENCOUNTER 2024-10-13 20:07 | Outpatient (BNV) | payer MEDICARE, MEDICAID, SELFPAY | END 2024-10-14 09:03 | PROVIDERS: Admitting Provider Student in an Organized Health Care Education/Training Program; Emergency Provider Emergency Medicine Emergency Medical Services; PCP Internal Medicine; Visit Provider Radiology Diagnostic Radiology | DX: K80.20 Calculus of gallbladder without cholecystitis without obstruction (principal); K56.41 Fecal impaction; J43.9 Emphysema, unspecified | CPT/HCPCS: 74177 ==

== ENCOUNTER → 2024-10-13 20:07 | Outpatient (BNV) | payer MEDICARE, MEDICAID, SELFPAY | PROVIDERS: Admitting Provider Student in an Organized Health Care Education/Training Program; Emergency Provider Emergency Medicine Emergency Medical Services; PCP Internal Medicine; Visit Provider Internal Medicine | DX: Z97.8 Presence of other specified devices (principal); Z85.46 Personal history of malignant neoplasm of prostate; N39.0 Urinary tract infection, site not specified | CPT/HCPCS: 99222 ==

== ENCOUNTER → 2024-10-13 20:07 | Outpatient (BNV) | payer MEDICARE, MEDICAID, SELFPAY | PROVIDERS: Admitting Provider Student in an Organized Health Care Education/Training Program; Emergency Provider Emergency Medicine Emergency Medical Services; PCP Internal Medicine; Visit Provider Urology | DX: N39.0 Urinary tract infection, site not specified (principal); Z85.46 Personal history of malignant neoplasm of prostate; Z97.8 Presence of other specified devices; R93.89 Abnormal findings on diagnostic imaging of other specified body structures | CPT/HCPCS: 99223; 99232 ==

== ENCOUNTER → 2024-10-13 20:07 | Outpatient (BNV) | payer MEDICARE, MEDICAID, SELFPAY | PROVIDERS: Admitting Provider Student in an Organized Health Care Education/Training Program; Emergency Provider Emergency Medicine Emergency Medical Services; PCP Internal Medicine; Visit Provider Family Medicine | DX: N39.0 Urinary tract infection, site not specified (principal) | CPT/HCPCS: 99223; 99232; 99233 ==

== ENCOUNTER 2024-10-26 14:36 | Emergency (ER) | payer MEDICARE, MEDICAID, SELFPAY ==
--- NOTE | ~2024-10-26 | XR_ITS ---
EXAMINATION: XR CHEST CLINICAL INFORMATION: shortness of breath COMPARISON: 10/13/2024. TECHNIQUE: 2 views of the chest were obtained. FINDINGS: Cardiac enlargement. Vascular engorgement in the hilar regions. Aortic calcification. Low lung volumes. Diffuse prominence of the bronchovascular interstitium, most confluent in the mid and lower lungs. Patchy opacity is redemonstrated right mid lung, perihilar regions, and left lower lung. There is no pneumothorax. There is mild blunting of both costophrenic sulci suggesting small effusions. There are spinal and bilateral shoulder joint degenerative changes. Probable full-thickness rotator cuff tears bilaterally. XR/XR chest 2V IMPRESSION: 1. Low lung volumes. 2. Cardiomegaly with prominent vascular engorgement in the hilar regions. 3. Diffuse prominence of the bronchovascular interstitium, limited evaluation on this radiograph. Similar patchy opacities right mid lung, perihilar regions, and left lower lung. Differential includes pulmonary edema, interstitial lung disease, or atypical pneumonia. Quite similar appearance to 10/13/2024. 4. Suspect tiny effusions. Electronically signed by: Evans Freitas MD 10/26/2024 04:52 PM [facility]
[2024-10-26 14:46] VITALS: BP 92/61; PULSE 87; RESP 20; TEMP 36.5; O2SAT 100; BMI 28.1
[2024-10-26 15:23] LABS: MANUAL DIFF FLAG NO
[2024-10-26 15:34] LABS: Basophils Percent Auto 0.2 % (0-2); Eosinophils Absolute Auto 0.1 X10*3/uL (0.0-0.4); Eosinophils Percent Auto 0.6 % (0-4); Hematocrit 33.5 % (42.0-52.0); Hemoglobin 10.1 g/dl (14.0-18.0); Imm Gran Abs Auto 0.08 X10*3/uL (0.00-0.03); Imm Gran Pct Auto 0.7 % (0.0-0.4); Lymphocytes Absolute Auto 1.1 X10*3/uL (1.2-4.9); Mean Corpuscular HGB Conc 30.1 g/dl (31.0-36.0); Mean Corpuscular Hemoglobin 26.1 pg (27.0-33.0); Mean Corpuscular Volume 86.6 fL (80.0-98.0); Mean Platelet Volume 10.8 fL (9.4-12.4); Monocytes Absolute Auto 0.4 X10*3/uL (0.1-1.2); Neutrophils Absolute Auto 10.6 x10*3/uL (2.0-8.3); Neutrophils Percent Auto 86.5 % (45-73); Platelet Count 197 X10*3/uL (160-400); Red Blood Count 3.87 X10*6/uL (4.60-5.80); Red Cell Distribution Width 16.9 % (11.0-16.0); White Blood Count 12.3 X10*3/uL (4.8-10.8)
[2024-10-26 15:51] LABS: Alanine Aminotransferase < 6 U/L (0-40); Albumin Level 2.8 g/dL (3.5-5.0); Alkaline Phosphatase 211 U/L (39-117); Anion Gap 14 (12-20); Aspartate Amino Transferase 11 U/L (5-37); Bilirubin Total 0.3 mg/dL (0.0-1.0); Blood Urea Nitrogen 26 mg/dL (9-16); Calcium 9.1 mg/dL (8.4-10.2); Carbon Dioxide 35 mmol/L (22-29); Chloride 95 mmol/L (96-108); Creatinine Clr Calc Pharmacy 98.8; Estimated Glomerular Filt Rate > 60; Glucose Random 176 mg/dL (60-115); Potassium 4.4 mmol/L (3.3-5.1); Sodium 140 mmol/L (135-145); Total Protein 7.5 g/dL (6.5-8.0)
[2024-10-26 17:38] VITALS: BP 95/71; PULSE 79; RESP 17; TEMP 36.2; O2SAT 100
--- NOTE | 2024-10-26 18:03 | ED.GENADULT ---
HPI - General Adult General Chief complaint: General Medical Stated complaint: PNEUMONIA, SOB Time Seen by Provider: 10/26/24 16:05 Source: patient, RN notes reviewed and old records reviewed Mode of arrival: EMS Limitations: other (Patient is a somewhat poor historian) History of Present Illness ED Provider: Tu HPI narrative: 79-year-old male with past medical history significant for chronic hypoxic and hypercarbic respiratory failure on 4 L supplementation via nasal cannula, COPD on chronic prednisone, AFib on Eliquis, dysphagia, CHF, urinary retention with chronic Kelly presents for evaluation for low oxygen saturation Patient presenting from a local rehab facility. Apparently he was found to be hypoxic to 88% in the nursing staff was unable to increase his oxygen saturation He was started on Augmentin for pneumonia with the 1st dose being today The patient offers no complaints. He has no fevers, denies any chest pain, shortness of breath, cough Related Data Home Medications ?Medication ?Instructions ?Recorded ?Confirmed acetaminophen 500 mg tablet 1,000 mg PO BID 10/13/24 10/13/24 apixaban 5 mg tablet (Eliquis) 5 mg PO BID 10/13/24 10/13/24 clotrimazole 1 % topical cream 1 appl topical DAILY PRN Rash 10/13/24 10/13/24 doxazosin 4 mg tablet 4 mg PO BID 10/13/24 10/13/24 fluticasone 100 mcg-salmeterol 50 1 inh inhalation BID 10/13/24 10/13/24 mcg/dose blistr powdr for inhalation (Advair Diskus) fluticasone propionate 50 2 spray intranasal DAILY 10/13/24 10/13/24 mcg/actuation nasal spray,suspension folic acid 1 mg tablet 1 mg PO DAILY 10/13/24 10/13/24 furosemide 40 mg tablet 40 mg PO BID 10/13/24 10/13/24 ipratropium 0.5 mg-albuterol 3 mg 3 ml inhalation Q4H PRN Shortness 10/13/24 10/13/24 (2.5 mg base)/3 mL nebulization Of Breath Or Wheezing soln metformin 500 mg tablet 500 mg PO BID 10/13/24 10/13/24 omeprazole 20 mg capsule,delayed 20 mg PO DAILY 10/13/24 10/13/24 release potassium chloride 20 mEq 20 meq PO BID 10/13/24 10/13/24 tablet,extended release(part/cryst) prednisone 10 mg tablet 10 mg PO DAILY 10/13/24 10/13/24 tamsulosin 0.4 mg capsule 0.4 mg PO DAILY 10/13/24 10/13/24 Previous Rx's ?Medication ?Instructions ?Recorded amoxicillin 500 mg-potassium 1 tab PO BID #18 tabs 10/17/24 clavulanate 125 mg tablet azithromycin 250 mg tablet 250 mg PO DAILY 4 days #4 tabs 10/26/24 Allergies Allergy/AdvReac Type Severity Reaction Status Date / Time latex Allergy Rash Verified 10/26/24 14:50 Review of Systems Constitutional: Constitutional: Denies body ache(s), Denies chills, Denies fever(s), Denies frequent falls and Denies headache(s) Eyes: Eyes: Denies blurry vision ENT: Denies vertigo, Denies dizziness and Denies headache(s) Cardiovascular: Cardiovascular: Denies chest pain, Denies chest pain at rest and Denies dyspnea Respiratory: Respiratory: Denies cough and Denies dyspnea Gastrointestinal: Gastrointestinal: Denies abdominal pain, Denies nausea and Denies vomiting Musculoskeletal: Musculoskeletal: Denies back pain Integumentary/Breasts: Skin/Breast: Denies rash Neurologic: Denies vertigo, Denies dizziness, Denies frequent falls and Denies headache(s) Psychiatric: Psychiatric: Denies anxiety PMFSH Past Medical History Medical History Obstructive sleep apnea Generalized anxiety disorder Adjustment disorder Non-insulin dependent type 2 diabetes mellitus Dysphagia Heart failure with reduced ejection fraction Persistent atrial fibrillation Idiopathic pulmonary fibrosis Prostate cancer Chronic indwelling Kelly catheter Social History Social History Household Members: Other Household Members Other:: roomate Housing: Custodial Do you presently have visiting nurse or other home services: Yes ([facility]) Alcohol intake: never Patient Tobacco Use Status: Never used Tobacco e-Cigarette/Vaping Use: Never Used Second Hand Smoke Exposure: No Advance Directives: Yes Advance Directives on File: Yes Advance Directives Date on File: 10/14/24 service: No Physical Exam ED Vital Signs: Vital Signs - 24 hr 10/26/24 14:46 10/26/24 17:38 Temperature 97.7 F 97.2 F Pulse Rate 87 79 Respiratory Rate 20 17 Blood Pressure 92/61 95/71 Pulse Oximetry 100 100 Oxygen Delivery Method Nasal Cannula Nasal Cannula Oxygen Flow Rate 4 BMI result Body Mass Index 28.1 Const Other: Patient is nontoxic appearing, does not appear acutely ill but does appear frail General: no acute distress, alert and awake Nutritional Appearance: well nourished [facility] Head: Yes normocephalic and Yes atraumatic Eyes Eyelids: Yes eyelids normal Conjunctivae: conjunctivae normal Sclerae: sclerae normal Corneas: corneas normal Pupils: Equal, round and reactive pupils present EOM: EOMs intact bilaterally Neck Neck: Yes full ROM Resp Other: Diminished throughout Effort & Inspection: normal respiratory effort, able to speak in complete sentences and not labored GI Inspection: No distended Palpation (GI): Soft to palpation, not firm, nontender, no guarding and not rigid Skin General skin exam: elasticity normal Neuro Cranial nerves: Yes Equal, round and reactive pupils present and Yes Bilaterally intact EOM present Extrem Other: Moving all extremities well without any obvious deformities Medical Decision Making Medical Decision Making [facility] Narrative: 79-year-old male past medical history as documented above presents for evaluation of reported hypoxia [facility] He has been here for 3 hours in his oxygen saturation has been 100% on his baseline oxygen supplementation. His labs show a mild leukocytosis of 12.3 with a left shift. He was started on Augmentin today, his chest x-ray shows possible atypical pneumonia and therefore I will add azithromycin to his antibiotic course. However the patient is stable for discharge back to his facility, he is not hypoxic, he is not septic. He was anticoagulated, low possibility for PE Differential Diagnosis Differential Diagnoses: The differential diagnosis associated with the presentation includes Bronchitis Pneumonia Influenza COVID-19 Admission/Observation Consideration of admission/observation: Escalation of care including admission/observation considered Consider admission due to pneumonia but the patient is not hypoxic or septic. Lab Data [facility] Lab Attestation statement: I reviewed the patient's lab results. Mild leukocytosis with a left shift. Mild chronic anemia. Chemistries significant for mild hypercapnia which again is chronic unlikely due to his COPD and 4 L via nasal cannula. BUN is slightly elevated 26 with a normal creatinine 0.67. Patient's glucose is 176, elevated but likely due to chronic prednisone use. 10/26/24 15:20 10/26/24 15:20 Labs: Lab Results 10/26/24 Range/Units 15:20 WBC 12.3 H (4.8-10.8) X10*3/uL RBC 3.87 L (4.60-5.80) X10*6/uL Hgb 10.1 L (14.0-18.0) g/dl Hct 33.5 L (42.0-52.0) % MCV 86.6 (80.0-98.0) fL MCH 26.1 L (27.0-33.0) pg MCHC 30.1 L (31.0-36.0) g/dl RDW 16.9 H (11.0-16.0) % Plt Count 197 (160-400) X10*3/uL MPV 10.8 (9.4-12.4) fL Immature Gran % (Auto) 0.7 H (0.0-0.4) % Neut % (Auto) 86.5 H (45-73) % Lymph % (Auto) 9.0 L (20-40) % [place] % (Auto) 3.0 (2-11) % Eos % (Auto) 0.6 (0-4) % Baso % (Auto) 0.2 (0-2) % Lymph # (Auto) 1.1 L (1.2-4.9) X10*3/uL [place] # (Auto) 0.4 (0.1-1.2) X10*3/uL Eos # (Auto) 0.1 (0.0-0.4) X10*3/uL Baso # (Auto) 0.0 (0.0-0.2) X10*3/uL Abs Immat Gran (auto) 0.08 H (0.00-0.03) X10*3/uL Absolute Neuts (auto) 10.6 H (2.0-8.3) x10*3/uL Absolute Nucleated RBC 0.000 (0.0-0.012) X10*3/uL Nucleated RBC % (auto) 0.0 (0.0-0.2) /100WBC Sodium 140 (135-145) mmol/L Potassium 4.4 (3.3-5.1) mmol/L Chloride 95 L (96-108) mmol/L Carbon Dioxide 35 H (22-29) mmol/L Anion Gap 14 (12-20) BUN 26 H (9-16) mg/dL Creatinine 0.67 (0.5-1.4) mg/dL Estim Creat Clear Calc 98.8 Estimated GFR > 60 Random Glucose 176 H (60-115) mg/dL Calcium 9.1 D (8.4-10.2) mg/dL Total Bilirubin 0.3 (0.0-1.0) mg/dL AST 11 (5-37) U/L ALT < 6 (0-40) U/L Alkaline Phosphatase 211 H (39-117) U/L Total Protein 7.5 (6.5-8.0) g/dL Albumin 2.8 L (3.5-5.0) g/dL Discharge Plan Discharge Clinical Impression: Community acquired pneumonia Patient Disposition: [facility] Transfer Details: [facility] rehab Instructions: Community Acquired Pneumonia (ED) Additional Instructions: Your chest x-ray shows possible atypical pneumonia Continue the Augmentin that you were prescribed and also start azithromycin Your 1st dose was given in the ER, so you need to complete the rest of the prescription 1 tab daily for the next 4 days starting tomorrow 10/27/2024 Prescriptions: New azithromycin 250 mg tablet 250 mg PO DAILY 4 Days Qty: 4 0RF Rx Instructions: start on day 2 of therapy No Action furosemide 40 mg tablet 40 mg PO BID metformin 500 mg tablet 500 mg PO BID prednisone 10 mg tablet 10 mg PO DAILY ipratropium-albuterol 0.5 mg-3 mg(2.5 mg base)/3 mL solution for nebulization 3 ml INHALATION Q4H PRN (Reason: Shortness Of Breath Or Wheezing) acetaminophen 500 mg Tablet 1,000 mg PO BID potassium chloride 20 mEq tablet,ER particles/crystals 20 meq PO BID tamsulosin 0.4 mg capsule 0.4 mg PO DAILY omeprazole 20 mg Capsule,Delayed Release(Dr/Ec) 20 mg PO DAILY doxazosin 4 mg tablet 4 mg PO BID Protocol: Hold for SBP< HOLD for SBP < : 110 folic acid 1 mg Tablet 1 mg PO DAILY fluticasone propion-salmeterol [Advair Diskus] 100-50 mcg/dose Blister With Device 1 inh INHALATION BID fluticasone propionate 50 mcg/actuation spray,suspension 2 spray INTRANASAL DAILY Rx Instructions: Alternating Nostrils clotrimazole 1 % cream 1 appl topical DAILY PRN (Reason: Rash) Eliquis 5 mg tablet 5 mg PO BID amoxicillin-pot clavulanate 500-125 mg Tablet 1 tab PO BID Qty: 18 0RF Print Language: Thai
[2024-10-26] MEDS: Azithromycin 500 MG TABLET PO (19:32)
[2024-10-26 20:25] VITALS: BP 109/53; PULSE 76; RESP 18; TEMP 36.3; O2SAT 100
[2024-10-26 21:24] VITALS: BP 109/53; PULSE 76; RESP 18; TEMP 36.3; O2SAT 100
[2024-10-26 21:25] LABS: Influenza A PCR NEGATIVE (Negative); Influenza B PCR NEGATIVE (Negative); Resp Syncy Virus RNA Qual PCR NEGATIVE (Negative); SARS COV2 PCR INHOUSE NEGATIVE (Negative)
== END 2024-10-26 21:27 | disposition skilled nursing facility (03) ==
PROVIDERS: Physician Assistant; Emergency Provider Emergency Medicine; PCP Internal Medicine
DX: J18.9 Pneumonia, unspecified organism (principal); R06.02 Shortness of breath; I48.91 Unspecified atrial fibrillation; Z79.01 Long term (current) use of anticoagulants
CPT/HCPCS: 0241U; 36415; 71046; 80053; 85025; 99283; 99285

== ENCOUNTER → 2024-10-26 16:11 | Outpatient (BNV) | payer MEDICARE, MEDICAID, SELFPAY | PROVIDERS: PCP Internal Medicine; Visit Provider Radiology Diagnostic Radiology | DX: I51.7 Cardiomegaly (principal) | CPT/HCPCS: 71046 ==

== ENCOUNTER 2024-10-29 14:02 | Inpatient (IN) | payer MEDICARE, MEDICAID, SELFPAY ==
[2024-10-29] VITALS (28 sets, daily range): BP systolic 78–123; BP diastolic 37–72; PULSE 73–120; RESP 20–32; TEMP 35.8–37.4; O2SAT 3–100; BMI 24.9
--- NOTE | ~2024-10-29 | CT_ITS ---
CLINICAL HISTORY: c f Bleeding L Femoral Arterial Line Site CT angio abdomen and pelvis with 3D post-processing Comparison: CT/SR - CT ABDOMEN PELVIS W IV CON - 10/29/24 16:58 EST Findings: The left femoral line has been removed. There is no active arterial hemorrhage originating from the femoral artery. In the medial aspect of the proximal left thigh there is a large hematoma which is not fully visualized in the craniocaudal dimension, measuring 4.6 x 15.2 cm. Within the hematoma there is an 8 mm focus of hemorrhage which is at the medial aspect ( series 5, image 110 and series 8, image 66 ). The pressure dressing is remote from this region of hemorrhage. Small bilateral pleural effusions. Increased reticulation with honeycombing and ground-glass opacity at the lung bases. Prominent sized heart. Cholelithiasis. No gallbladder wall thickening or pericholecystic fluid. There is a Kelly catheter in the bladder which is decompressed. No hydronephrosis. Left nephrolithiasis is punctate. Right renal cyst. Left renal subcentimeter low attenuating lesion which is too small to characterize. Brachytherapy seeds in the prostate. The other solid organs are unremarkable. The enteric tube terminates in the proximal duodenum. No dilation of the small bowel and colon. No definitive bowel wall thickening of the small bowel and colon. The appendix is not visualized. No secondary signs of acute appendicitis. Colonic diverticulosis. Moderately increased stool quantity may indicate constipation. The rectum is distended with stool, measuring 7.7 cm in transverse dimension, which may indicate fecal impaction. There is mild wall thickening of the rectum No aneurysm, dissection or occlusion. Severe calcified atherosclerotic disease. Question significant stenosis of the origin of the renal arteries. No other significant stenosis. No lymphadenopathy. No ascites. No acute osseous abnormality. Severe degenerative change of the hips, [id number]; there is left femoral head remodeling. Impression: Large hematoma in the medial aspect of the proximal left which is not fully visualized in the craniocaudal dimension, measuring up to 15.2 cm. There is an 8 mm focus of hemorrhage of the medial aspect of the hematoma. The pressure dressing does not overlie this region of hemorrhage; consider adding a medial pressure dressing. There is no aneurysm, dissection or occlusion. Moderately increased stool quantity. Increased stool quantity in the rectum may indicate fecal impaction. There is associated rectal wall thickening which could be due to developing stercoral colitis. This document has been electronically signed by: Kaylen Esquivel MD on 11/11/2024 13:13:36
--- NOTE | ~2024-10-29 | US_ITS ---
CLINICAL HISTORY: left groin wound Ultrasound soft tissues of the left groin with color Doppler: Comparison: CT 11/11/2024 Findings: Real-time ultrasound of the left inguinal superficial fascia hematoma described on prior CT was performed. A well-delineated mostly fluid density with mild posterior acoustic enhancement is present measuring 12.8 x 1.9 cm in the left inguinal superficial fascia. The fluid collection is nonvascular and contains septations and debris consistent with fibrin and denatured blood products. A single image labeled ???post hematoma evacuation??? shows no residual soft tissue fluid collection. Impression: Initial imaging of left inguinal fluid collection with septations followed by single image showing no residual fluid ???status post hematoma evacuation???. This document has been electronically signed by: Julian Galvan MD on 11/21/2024 18:15:15
--- NOTE | ~2024-10-29 | XR_ITS ---
CLINICAL HISTORY: PICC line placement 1 view chest x-ray Comparison: CR/SD/SR - XR CHEST 1V - 11/15/24 15:11 EST Findings: Unchanged low lung volumes, bilateral pulmonary opacities and small bilateral pleural effusions. Stable cardiomediastinal silhouette and bony structures. There is a tracheotomy tube. There is a right central line with tip near the atriocaval junction. IMPRESSION: Distal tip of the left PICC line appears to be in the left innominate vein and should be advanced an additional 6-7 cm with repeat chest radiographs. This document has been electronically signed by: Ludivina Jenkins DO on 11/17/2024 17:14:08
--- NOTE | ~2024-10-29 | CT_ITS ---
CLINICAL HISTORY: sepsis, source unclear CT abdomen and pelvis with contrast Comparison: CT - CT ABDOMEN PELVIS W IV CON - 10/14/24 09:03 EST Findings: Findings at the lung bases are reported separately. 1 cm cyst within the tail of the pancreas. Two small adenomas within the right adrenal gland. Small bilateral kidney cysts. Remaining abdominal organs are unremarkable. There are numerous tiny calcified gallstones. No bowel obstruction, pneumoperitoneum, or pneumatosis. Right-sided central venous line within the right external iliac vein. There are numerous radiation seed implants within the prostate. There is a Kelly catheter within the urinary bladder. The appendix is not definitively seen. There are no secondary findings to suggest appendicitis. No acute fracture. Advanced arthritic change and remodeling of the left hip. Chronic right-sided pars defect at L5. Evaluation is mildly limited with incomplete visualization of the lateral aspects of the abdomen. IMPRESSION: 1. No acute abdominal disease. 2. Colonic diverticulosis without diverticulitis. This document has been electronically signed by: Shara Anand MD on 10/29/2024 18:23:33
--- NOTE | ~2024-10-29 | XR_ITS ---
CLINICAL HISTORY: TLC RIGHT IJ PLACEMENT 1 view chest x-ray Comparison: CR/DE/SR - XR CHEST 1V - 10/31/24 16:09 EST Findings: The tip of the endotracheal tube is approximately 3 cm above the mariana. The right IJ line tip is in the region of the cavoatrial junction. The enteric tube appears adequately positioned. Increasing central vascular and interstitial prominence. Cardiac and mediastinal contours are prominent. Small bilateral effusions are present. No acute fracture. IMPRESSION: Adequately positioned tubes and lines. Worsening interstitial and alveolar edema with small bilateral effusions. This document has been electronically signed by: Sigifredo Hess MD on 10/31/2024 18:14:24
--- NOTE | ~2024-10-29 | XR_ITS ---
EXAMINATION: XR CHEST 1 VIEW HISTORY: s/p tracheostomy COMPARISON: Comparison is made with the prior examination dated 10/31/2024. FINDINGS: Two AP portable views of the chest performed at 3:11 PM are submitted. There has been interval placement of a tracheostomy tube with its tip approximately 4-4.5 cm above the mariana. The orogastric tube is been removed. A right-sided central venous catheter is unchanged in position. Again seen is prominence of the pulmonary vasculature consistent with congestion. There are tiny bilateral pleural effusions. No pneumothorax. The heart remains enlarged. There is degenerative disc disease of the spine. XR/XR chest 1V IMPRESSION: 1. Tracheostomy tube tip 4-4.5 cm above the mariana. 2. Cardiomegaly, pulmonary vascular congestion, and tiny bilateral pleural effusions. Electronically signed by: Rashard Newsome MD 11/15/2024 03:42 PM [facility] [place]
--- NOTE | ~2024-10-29 | CT_ITS ---
CLINICAL HISTORY: Persistent Encephalopathy, ?Intracranial Process CT head without contrast Comparison: None Findings: Artifact and head positioning limits interpretation. No evidence of acute territorial infarct. There is patchy low density in the periventricular and subcortical white matter. Diffuse volume loss is noted. No hydrocephalus. Several punctate bilateral calcifications are present. No hemorrhage, mass effect, mass lesion or midline shift. No abnormal extra-axial fluid. No calvarial fracture. Paranasal sinuses a demonstrate opacification of the left maxillary sinus and partial opacification of the ethmoid air cells and left mastoid air cells. Impression: No evidence of acute process. There is significant diffuse volume loss and ischemic microangiopathy. There are innumerable punctate bilateral calcifications at albarran-white junction, nonspecific. This can be seen with prior treated infection or prior treated metastatic lesions. There are no comparison studies. This document has been electronically signed by: Sigifredo Hess MD on 11/29/2024 18:13:08
--- NOTE | ~2024-10-29 | CT_ITS ---
CLINICAL HISTORY: hypotension, hypoxia CT angiography chest with contrast. 3D Postprocessing. Comparison: None Findings: Mildly enlarged heart. [id number]-fumdhcih coronary artery calcification. Unremarkable thoracic aorta and great vessels. No aneurysm. No pulmonary artery filling defects. The visualized thyroid and mediastinum are unremarkable. No consolidation or pleural effusion. Peripheral reticular opacities and foci of honeycombing are present bilaterally, Compatible with interstitial scarring. Findings at the level of the abdomen are reported separately. No acute fractures. There is a 2.3 cm sclerotic lesion within the T4 vertebral body. IMPRESSION: 1. No evidence of pulmonary artery embolism. 2. There is a sclerotic lesion within the T4 vertebral body, suspicious for metastatic disease. This document has been electronically signed by: Shara Anand MD on 10/29/2024 18:17:58
--- NOTE | ~2024-10-29 | XR_ITS ---
CLINICAL HISTORY: dyspnea 1 view chest x-ray Comparison: CR/SR - XR CHEST 2V - 10/26/24 16:33 EST CR/SR - XR CHEST 1V - 10/13/24 14:56 EST Findings: There is thickening of interstitial markings without change. No consolidation. Severe elevation of the right hemidiaphragm. No acute fracture. Heart size is normal. No acute fracture. IMPRESSION: Thickening of interstitial markings without change. This may be secondary to scarring or persistent interstitial infiltrates. This document has been electronically signed by: Shara Anand MD on 10/29/2024 16:25:21
--- NOTE | ~2024-10-29 | US_ITS ---
PROCEDURE: Ultrasound-guided drainage of left groin/thigh fluid collection. HISTORY: 79-year-old man with a large left thigh/groin fluid collection. Patient is status post evacuation of left groin hematoma 2 weeks ago. SPECIMEN: A specimen was cultured. MEDICATIONS: 10 mL 1% lidocaine TECHNIQUE/FINDINGS Appropriate preprocedural clinical history and imaging studies were reviewed. The ultrasound machine was brought to the brought to the patient's intensive care unit room. Ultrasound images of the left groin/thigh were obtained to localize a large loculated fluid collection. Permanent ultrasound images were saved. The risks and benefits and possible complications were discussed with the patient's son and consent obtained. An area of the patient's left lateral thigh prepped and draped in the usual sterile fashion. 10 mL of 1% lidocaine was used to obtain local anesthesia of the skin and deeper tissues. A 10 Persian all-purpose drainage catheter was inserted through the skin and soft tissues and into the fluid collection via trocar method. A total of 120 cc of dark nonclotting blood tinged fluid was removed and sent for culture. The catheter was secured to the skin with a 3-0 Ethilon suture. The drain was then connected to a TJ bulb. A dry sterile dressing was applied. The patient tolerated the procedure well. There were no immediate complications US/US drain soft tissue w imaging Impression: Ultrasound-guided drainage of left thigh/groin fluid collection. This procedures performed by Lizandro Flor PA-C and supervised by Dr. Strauss. Electronically signed by: Edin Strauss MD 11/22/2024 04:04 PM [facility]
--- NOTE | ~2024-10-29 | XR_ITS ---
EXAMINATION: XR CHEST CLINICAL INFORMATION: ETT OG TUBE PACEMENT VERIFICATION COMPARISON: Prior day at 5:13 PM. TECHNIQUE: Frontal view of the chest was obtained. FINDINGS: ET tube is present, terminating approximately 2.6 cm above the mariana. This is satisfactorily positioned. OG tube is present, tip and sidehole below the diaphragm, tip below the edge of the film, presumably in the stomach. Cardiomegaly, with severe bilateral parenchymal opacities throughout both lungs with underlying interstitial changes, unchanged. Suspect tiny effusions. No pneumothorax. XR/XR chest 1V IMPRESSION: ET tube and OG tube are well-positioned. No significant change in diffuse pulmonary interstitial and parenchymal abnormalities. Suspect small effusions. Differential again includes pulmonary edema versus atypical infection. No pneumothorax. Electronically signed by: Evans Freitas MD 10/31/2024 04:45 PM [facility]
--- NOTE | ~2024-10-29 | XR_ITS ---
CLINICAL HISTORY: SOB 1 view chest x-ray Comparison: CR - XR CHEST 1V - 10/29/24 15:19 EST Findings: Severe diffuse patchy bilateral airspace opacity is present, which appears slightly increased Heart size is normal. No acute fracture. IMPRESSION: Increased, bilateral edema versus pneumonia. This document has been electronically signed by: Alejandro Whipple MD on 10/30/2024 17:55:52
--- NOTE | 2024-10-29 14:11 | ECG_ITS ---
Test Reason : DYSPNEA Blood Pressure : */* mmHG Vent. Rate : 81 BPM Atrial Rate : 91 BPM P-R Int : * ms QRS Dur : 98 ms QT Int : 386 ms P-R-T Axes : 72 -32 54 degrees QTcB Int : 448 ms Normal sinus rhythm with Premature atrial complexes and/or Premature ventricular complexes Blocked PACs noted Left axis deviation Minimal voltage criteria for LVH, may be normal variant ( R in aVL ) Abnormal ECG When compared with ECG of 13-Oct-2024 14:06, Normal sinus rhythm with Premature atrial complexes has replaced multifocal atrial rhythm Referred By: Tom Leone Electronically Signed By: KATHERINE AVILA MD
--- NOTE | 2024-10-29 14:11 | ED_ITS ---
HPI - General Adult General Chief complaint: Dyspnea Stated complaint: CONFUSED TODAY Time Seen by Provider: 10/29/24 14:11 History of Present Illness ED Provider: Sulema JAMES narrative: The patient is a 79-year-old male with a history of idiopathic pulmonary fibrosis, paroxysmal atrial fibrillation on apixaban, idiopathic thrombocytopenic purpura on chronic steroids, congestive heart failure, metastatic prostate cancer, evl-eaioiki-nriaeurbt type 2 diabetes, chronic urinary retention with a Kelly catheter among other problems who lives at a local [facility]. He was recently hospitalized at this hospital from October 13 to October 17. His discharge diagnoses included urinary tract infection. The patient apparently has a history of ESBL E coli in his urine. He was treated with Mirapex him for 3 days but his final culture was ultimately negative as was his blood culture. He was discharged on oral Augmentin. Interestingly he apparently was taken to [facility] on October 18 and was discharged on October 22. The discharge diagnosis at that time was CHF exacerbation. He later returned to the emergency room 3 days ago on October 26 and was felt to possibly have a community-acquired pneumonia. Apparently the Augmentin, which has been prescribed at discharge on October 17, was going to be continued by the facility. The ER provider also recommended azithromycin in addition to the Augmentin. The patient is apparently on 2-4 L nasal cannula at baseline. He was sent from his intermediate facility today because of increasing confusion and hallucinations and oxygenation in the 70s. The patient's son was here initially in said that the patient is often confused when he gets ill. I was later able to contact the nurse who is taking care of the patient today at the [facility] intermediate facility. She told me that the patient's son had encouraged them to transfer the patient to the hospital yesterday evening because the son felt the patient was confused. The staff at the facility however did not feel the patient was significantly different from his baseline. The patient's son returned this morning and insisted that the patient be transferred to the hospital because the son felt that the patient was more confused than baseline. Again the staff was not convinced that the patient was very different. I was told that the patient is normally on 4 L of oxygen and that his oxygen saturations were in the low 90s but that this is essentially the patient's baseline. They also said that the patient has a history of a labile mental status. Sometimes the patient is more confused than others. The staff did not feel that the patient was markedly different today. Apparently ultimately the son called 911 which prompted the transfer to the hospital here. Paramedics however reported that the patient's oxygen saturation on room air was 70%. According to the nurse with whom I spoke the major difference in the patient's condition was the increasing purulence of the urine in the catheter output. At the end of my shift I have communicated with Dr. Beckford the ICU. He has asked that the patient received 2 bottles of albumin to see if this will help get the patient off pressors. Additionally I have ordered a dose of Meropenem because of the patient's history of ESBL E coli UTI at [facility] earlier this year. At the end of my shift I am signing the patient out to my colleague pending further evaluation after administration of albumin. The hope is that perhaps we will be able to get the patient off pressors so that he can avoid an ICU admission. Related Data Home Medications ?Medication ?Instructions ?Recorded ?Confirmed acetaminophen 500 mg tablet 1,000 mg PO BID 10/13/24 10/13/24 apixaban 5 mg tablet (Eliquis) 5 mg PO BID 10/13/24 10/13/24 clotrimazole 1 % topical cream 1 appl topical DAILY PRN Rash 10/13/24 10/13/24 doxazosin 4 mg tablet 4 mg PO BID 10/13/24 10/13/24 fluticasone 100 mcg-salmeterol 50 1 inh inhalation BID 10/13/24 10/13/24 mcg/dose blistr powdr for inhalation (Advair Diskus) fluticasone propionate 50 2 spray intranasal DAILY 10/13/24 10/13/24 mcg/actuation nasal spray,suspension folic acid 1 mg tablet 1 mg PO DAILY 10/13/24 10/13/24 furosemide 40 mg tablet 40 mg PO BID 10/13/24 10/13/24 ipratropium 0.5 mg-albuterol 3 mg 3 ml inhalation Q4H PRN Shortness 10/13/24 10/13/24 (2.5 mg base)/3 mL nebulization Of Breath Or Wheezing soln metformin 500 mg tablet 500 mg PO BID 10/13/24 10/13/24 omeprazole 20 mg capsule,delayed 20 mg PO DAILY 10/13/24 10/13/24 release potassium chloride 20 mEq 20 meq PO BID 10/13/24 10/13/24 tablet,extended release(part/cryst) prednisone 10 mg tablet 10 mg PO DAILY 10/13/24 10/13/24 tamsulosin 0.4 mg capsule 0.4 mg PO DAILY 10/13/24 10/13/24 Previous Rx's ?Medication ?Instructions ?Recorded amoxicillin 500 mg-potassium 1 tab PO BID #18 tabs 10/17/24 clavulanate 125 mg tablet azithromycin 250 mg tablet 250 mg PO DAILY 4 days #4 tabs 10/26/24 Allergies Allergy/AdvReac Type Severity Reaction Status Date / Time latex Allergy Rash Verified 10/29/24 14:18 Review of Systems 2 Review of Systems: Yes all other systems are reviewed and are negative [facility] Past Medical History Medical History Obstructive sleep apnea Generalized anxiety disorder Adjustment disorder Non-insulin dependent type 2 diabetes mellitus Dysphagia Heart failure with reduced ejection fraction Persistent atrial fibrillation Idiopathic pulmonary fibrosis Prostate cancer Chronic indwelling Kelly catheter Social History Social History Household Members: Other Household Members Other:: roomate Housing: Shelter Do you presently have visiting nurse or other home services: Yes (usp) Alcohol intake: never Patient Tobacco Use Status: Never used Tobacco Smoked in Last 30 Days: No e-Cigarette/Vaping Use: Never Used Second Hand Smoke Exposure: No Use of substances other than those prescribed or required for medical reasons: No Advance Directives: No Advance Directives Information Provided: No Advance Directives Date on File: 10/14/24 service: No Physical Exam ED Vital Signs: Vital Signs - 24 hr 10/29/24 14:07 10/29/24 14:49 10/29/24 15:00 Temperature 99.4 F Pulse Rate 120 H 94 92 Respiratory Rate 32 H 20 28 H Blood Pressure 84/43 L 94/54 L 81/53 L Pulse Oximetry 93 97 95 Oxygen Delivery Method Non-Rebreather Mask Non-Rebreather Mask Non-Rebreather Mask Oxygen Flow Rate 15 15 10/29/24 15:12 10/29/24 15:27 10/29/24 15:40 Temperature Pulse Rate 92 100 82 Respiratory Rate 30 H 29 H Blood Pressure 80/51 L 90/50 L 98/56 L Pulse Oximetry 88 L 100 Oxygen Delivery Method Non-Rebreather Mask Oxymask Oxygen Flow Rate 15 8 10/29/24 16:11 10/29/24 16:35 10/29/24 16:45 Temperature 96.4 F L 97.7 F Pulse Rate 89 95 90 Respiratory Rate 28 H 24 H 22 H Blood Pressure 110/67 93/55 L Pulse Oximetry 94 100 Oxygen Delivery Method Oxymask Aerosol Mask Oxygen Flow Rate 8 8 10/29/24 16:52 10/29/24 17:31 10/29/24 17:34 Temperature Pulse Rate 92 88 88 Respiratory Rate 22 H Blood Pressure 93/55 L 119/72 78/51 L Pulse Oximetry 95 Oxygen Delivery Method Aerosol Mask Oxygen Flow Rate 4 10/29/24 17:34 Temperature Pulse Rate 88 Respiratory Rate Blood Pressure 78/51 L Pulse Oximetry Oxygen Delivery Method Oxygen Flow Rate BMI result Body Mass Index 24.9 Const Other: The patient is a very chronically ill-appearing 79-year-old male who was awake but seemed confused and somewhat somnolent. He seemed profoundly weak. HENMT Other: Face is symmetrical. Mucous membranes are moist. Airway was clear. Eyes General: appearance normal, both eyes and all related structures Sclerae: sclerae normal Neck Other: No JVD, no neck rigidity Resp Other: The patient has diffuse crackles throughout all lung crespo. Cardio Other: The patient has an irregular rate and rhythm Heart sounds: S1 normal heart sound present, S2 normal heart sound present and Murmur heart sound present (No murmur heard) GI Other: Abdomen is not obviously tender or distended. Other: The patient had an indwelling urinary catheter with grossly thick purulent urine flowing through the tubing. Skin Other: Skin is pale and dry Neuro Other: The patient seemed sleepy but arousable. He seemed somewhat confused in a manner consistent with a encephalopathy. However his speech was not dysarthric. His face was symmetric. Eye movements seemed intact. He seemed to have symmetrical strength in his extremities. Very weak lower extremities, I believe this is chronic Extrem Other: There is no calf swelling or tenderness. No peripheral edema. He has inflatable protective heel boots on both feet. Medications Administered Generic Name Dose Route Start Last Admin Trade Name Freq PRN Reason Stop Dose Admin Norepinephrine Bitartrate 8 mg in 250 mls @ 0 mls/hr 10/29/24 15:30 10/29/24 17:34 Levophed IVCONT 0.07 mcg/kg/min .Q0M TINA 10.05 mls/hr Titration Protocol Per Protocol Discontinued Medications Generic Name Dose Route Start Last Admin Trade Name Freq PRN Reason Stop Dose Admin Albuterol Sulfate 2.5 mg/ 0 mg 10/29/24 15:37 10/29/24 16:31 Albuterol/Ipratropium 3 ml INHALE 10/29/24 15:38 1 dose ONCE ONE Administration Hydrocortisone Sodium Succinate 100 mg 10/29/24 15:30 10/29/24 15:36 Hydrocortisone Sod Succ/Pf 100 Mg Vial IVPUSH 10/29/24 15:31 100 mg ONCE ONE Administration Piperacillin Sod/Tazobactam 100 mls @ 200 mls/hr 10/29/24 15:19 10/29/24 16:04 Sod 4.5 gm/ Sodium Chloride IV 10/29/24 15:48 Infused ONCE ONE Infusion Vancomycin HCl 2,000 mg in 500 mls @ 250 mls/hr 10/29/24 15:21 10/29/24 16:04 Vancomycin/Ns IV 10/29/24 17:20 250 mls/hr ONCE ONE Administration Lactated Ringer's 1,000 mls @ 999 mls/hr 10/29/24 15:30 10/29/24 16:52 Lr IV 10/29/24 16:30 Infused .Q1H1M TNIA Infusion Lactated Ringer's 1,000 mls @ 999 mls/hr 10/29/24 16:30 10/29/24 16:51 Lr IV 10/29/24 17:30 999 mls/hr .Q1H1M TINA Administration Iohexol 100 ml 10/29/24 17:17 10/29/24 17:17 Iohexol 350 Mg/Ml 100 Ml Infus..Btl IV 10/29/24 17:18 85 ml ONCE ONE Administration Procedures Central Line Placement Right Femoral: Time Out Performed: Yes Patient Placed on Monitor/Pulse Ox: Yes Prep: mask, gown and gloves Central Line Prep: Chlorhexidine scrub and sterile drapes applied Local Anesthetic: lidocaine 1% Amount of anesthesia used (mL): 3 Ultrasound Used for Placement: Yes Central Line Lumen Inserted: triple Post Procedure: sutured in place, good blood return, all ports aspirated, flushed, capped and sterile dressing applied Patient Tolerated Procedure: well and no complications Complications: arterial puncture/cannulation (On ultrasound femoral vein was largely covered by the femoral artery. On my 1st pass with a needle blood was obviously arterial.) Medical Decision Making Medical Decision Making [facility] Narrative: The patient arrived looking quite ill. He was hypotensive and hypoxic. He was somewhat confused in a manner consistent with a metabolic encephalopathy. His rectal temperature was 99.4 degrees. IV access was difficult. Because of patient's seeming to be significantly ill and because we were unable to establish effective peripheral IVs I placed a triple-lumen catheter in the patient's right femoral line using standard central line protocol. Because the patient was hypotensive with blood pressures as low as 84/43 and 80/51 he was started on norepinephrine peripherally. He was also given IV fluids. The patient was not given 30 liters/kilos bolus of crystalloid because of a history of congestive heart failure. Empiric antibiotics were given although it was not clear if he was actually septic. He was briefly placed on 15 L of oxygen with the an OxyMask after having had oxygen saturations in the high 70s. I believe the patient is on chronic prednisone 10 mg daily because of ITP. He was therefore given a stress dose of 100 mg of hydrocortisone IV. Portable chest x-ray was done that I thought looked less consistent with congestive heart failure than his previous x-rays. The radiology reading of the chest x-ray was similar ?Thickening of interstitial markings without change. This may be secondary to scarring or persistent interstitial infiltrates. Although my initial impression was that the patient might be septic his workup did not seem to strongly support that. His white count was 12.1 with 85% neutrophils. CRP was somewhat elevated at 5.89 but not markedly elevated. Procalcitonin is 0.10. The patient's urine is obviously purulent. Apparently this was the case on his previous hospitalization. At that visit his urine culture did not grow anything. Serologies for influenza, COVID, and RSV are negative. Lab Data 10/29/24 14:42 10/29/24 14:42 Labs: Lab Results 10/29/24 10/29/24 10/29/24 Range/Units 14:42 14:47 14:54 WBC 12.1 H (4.8-10.8) X10*3/uL RBC 3.86 L (4.60-5.80) X10*6/uL Hgb 10.0 L (14.0-18.0) g/dl Hct 33.9 L (42.0-52.0) % MCV 87.8 (80.0-98.0) fL MCH 25.9 L (27.0-33.0) pg MCHC 29.5 L (31.0-36.0) g/dl RDW 16.9 H (11.0-16.0) % Plt Count 197 (160-400) X10*3/uL MPV 10.5 (9.4-12.4) fL Immature Gran % (Auto) 0.7 H (0.0-0.4) % Neut % (Auto) 85.0 H (45-73) % Lymph % (Auto) 10.5 L (20-40) % [place] % (Auto) 3.5 (2-11) % Eos % (Auto) 0.1 (0-4) % Baso % (Auto) 0.2 (0-2) % Lymph # (Auto) 1.3 (1.2-4.9) X10*3/uL [place] # (Auto) 0.4 (0.1-1.2) X10*3/uL Eos # (Auto) 0.0 (0.0-0.4) X10*3/uL Baso # (Auto) 0.0 (0.0-0.2) X10*3/uL Abs Immat Gran (auto) 0.08 H (0.00-0.03) X10*3/uL Absolute Neuts (auto) 10.3 H (2.0-8.3) x10*3/uL Absolute Nucleated RBC 0.000 (0.0-0.012) X10*3/uL Nucleated RBC % (auto) 0.0 (0.0-0.2) /100WBC PT (10.9-12.4) SEC INR (0.9-1.1) VBG pH 7.44 H (7.32-7.43) VBG pCO2 59 mmHg VBG pO2 32 mmHg VBG HCO3 40 H (22-26) mmol/L VBG O2 Saturation 44.0 % VBG Base Excess 14.0 mmol/L Sodium 140 (135-145) mmol/L Potassium 5.1 (3.3-5.1) mmol/L Chloride 100 (96-108) mmol/L Carbon Dioxide 26 (22-29) mmol/L Anion Gap 19 (12-20) BUN 21 H (9-16) mg/dL Creatinine 0.71 (0.5-1.4) mg/dL Estim Creat Clear Calc 85.7 Estimated GFR > 60 Random Glucose 176 H (60-115) mg/dL Lactic Acid 2.7 H* (0.5-2.0) mmol/L Calcium 8.8 (8.4-10.2) mg/dL Magnesium 1.7 (1.6-2.6) mg/dL Total Bilirubin 0.3 (0.0-1.0) mg/dL Direct Bilirubin 0.1 (0.0-0.5) mg/dL AST 26 (5-37) U/L ALT < 6 (0-40) U/L Alkaline Phosphatase 207 H (39-117) U/L Troponin I High Sens 13.5 (<3.5-35.0) ng/L C-Reactive Protein 5.89 H (< or = 0.50) mg/dL B-Natriuretic Peptide 539 H (<100) pg/mL Total Protein 7.8 (6.5-8.0) g/dL Albumin 2.7 L (3.5-5.0) g/dL Procalcitonin 0.10 ng/mL Urine Color Urine Appearance Urine pH (5.0-9.0) Ur Specific [place] (1.005-1.025) Urine Protein (Neg-Trace) mg/dL Urine Glucose (UA) (Negative) mg/dL Urine Ketones (Negative) mg/dL Urine Blood (Negative) Urine Nitrite (Negative) Ur Leukocyte Esterase (Negative) Urine RBC (0-2) /HPF Urine WBC (0-5) /HPF Ur Squamous Epith Cells (0-2) /HPF Ur Transition Epith Cell Urine Bacteria (None Seen) Hyaline Casts (0-2) /LPF Influenza Type A (PCR) NEGATIVE (Negative) Influenza Type B (PCR) NEGATIVE (Negative) RSV RNA Qual (PCR) NEGATIVE (Negative) SARS-CoV-2 RNA (RT-PCR) NEGATIVE (Negative) 10/29/24 10/29/24 Range/Units 15:29 16:47 WBC (4.8-10.8) X10*3/uL RBC (4.60-5.80) X10*6/uL Hgb (14.0-18.0) g/dl Hct (42.0-52.0) % MCV (80.0-98.0) fL MCH (27.0-33.0) pg MCHC (31.0-36.0) g/dl RDW (11.0-16.0) % Plt Count (160-400) X10*3/uL MPV (9.4-12.4) fL Immature Gran % (Auto) (0.0-0.4) % Neut % (Auto) (45-73) % Lymph % (Auto) (20-40) % [place] % (Auto) (2-11) % Eos % (Auto) (0-4) % Baso % (Auto) (0-2) % Lymph # (Auto) (1.2-4.9) X10*3/uL [place] # (Auto) (0.1-1.2) X10*3/uL Eos # (Auto) (0.0-0.4) X10*3/uL Baso # (Auto) (0.0-0.2) X10*3/uL Abs Immat Gran (auto) (0.00-0.03) X10*3/uL Absolute Neuts (auto) (2.0-8.3) x10*3/uL Absolute Nucleated RBC (0.0-0.012) X10*3/uL Nucleated RBC % (auto) (0.0-0.2) /100WBC PT 18.3 H (10.9-12.4) SEC INR 1.6 H (0.9-1.1) VBG pH (7.32-7.43) VBG pCO2 mmHg VBG pO2 mmHg VBG HCO3 (22-26) mmol/L VBG O2 Saturation % VBG Base Excess mmol/L Sodium (135-145) mmol/L Potassium (3.3-5.1) mmol/L Chloride (96-108) mmol/L Carbon Dioxide (22-29) mmol/L Anion Gap (12-20) BUN (9-16) mg/dL Creatinine (0.5-1.4) mg/dL Estim Creat Clear Calc Estimated GFR Random Glucose (60-115) mg/dL Lactic Acid (0.5-2.0) mmol/L Calcium (8.4-10.2) mg/dL Magnesium (1.6-2.6) mg/dL Total Bilirubin (0.0-1.0) mg/dL Direct Bilirubin (0.0-0.5) mg/dL AST (5-37) U/L ALT (0-40) U/L Alkaline Phosphatase (39-117) U/L Troponin I High Sens (<3.5-35.0) ng/L C-Reactive Protein (< or = 0.50) mg/dL B-Natriuretic Peptide (<100) pg/mL Total Protein (6.5-8.0) g/dL Albumin (3.5-5.0) g/dL Procalcitonin ng/mL Urine Color Yellow Urine Appearance Cloudy Urine pH 6.5 (5.0-9.0) Ur Specific [place] 1.025 (1.005-1.025) Urine Protein 100 (2+) H (Neg-Trace) mg/dL Urine Glucose (UA) 100 H (Negative) mg/dL Urine Ketones Trace (Negative) mg/dL Urine Blood Large (3+) H (Negative) Urine Nitrite Positive H (Negative) Ur Leukocyte Esterase Large (3+) H (Negative) Urine RBC >20 H (0-2) /HPF Urine WBC >50 (0-5) /HPF Ur Squamous Epith Cells 0-2 (0-2) /HPF Ur Transition Epith Cell Present Urine Bacteria 4+ (None Seen) Hyaline Casts 0-2 (0-2) /LPF Influenza Type A (PCR) (Negative) Influenza Type B (PCR) (Negative) RSV RNA Qual (PCR) (Negative) SARS-CoV-2 RNA (RT-PCR) (Negative) Independent Interpretation I performed an independent interpretation of an: EKG Interpretation: EKG at 16:11 shows atrial fibrillation at 89 beats per minute. No definite acute ischemic changes. Critical Care Time Critical Care Time Critical Care Time: Yes Total Critical Care Time: 60 Attestation: The patient was critically ill with a high probability of imminent or life- threatening deterioration. ?I spent greater than 30 minutes of discontinuous time evaluating the patient, delivering critical care at the bedside, discussing evaluating data with consultants. ?Critical care time does not include time spent performing separately billable procedures or teaching. ?Time spent performing critical care with 60 minutes. Discharge Plan Discharge Clinical Impression: Sepsis due to urinary tract infection Patient Disposition: Still a Patient Prescriptions: No Action furosemide 40 mg tablet 40 mg PO BID metformin 500 mg tablet 500 mg PO BID prednisone 10 mg tablet 10 mg PO DAILY ipratropium-albuterol 0.5 mg-3 mg(2.5 mg base)/3 mL solution for nebulization 3 ml INHALATION Q4H PRN (Reason: Shortness Of Breath Or Wheezing) acetaminophen 500 mg Tablet 1,000 mg PO BID potassium chloride 20 mEq tablet,ER particles/crystals 20 meq PO BID tamsulosin 0.4 mg capsule 0.4 mg PO DAILY omeprazole 20 mg Capsule,Delayed Release(Dr/Ec) 20 mg PO DAILY doxazosin 4 mg tablet 4 mg PO BID Protocol: Hold for SBP< HOLD for SBP < : 110 folic acid 1 mg Tablet 1 mg PO DAILY fluticasone propion-salmeterol [Advair Diskus] 100-50 mcg/dose Blister With Device 1 inh INHALATION BID fluticasone propionate 50 mcg/actuation spray,suspension 2 spray INTRANASAL DAILY Rx Instructions: Alternating Nostrils clotrimazole 1 % cream 1 appl topical DAILY PRN (Reason: Rash) Eliquis 5 mg tablet 5 mg PO BID amoxicillin-pot clavulanate 500-125 mg Tablet 1 tab PO BID Qty: 18 0RF azithromycin 250 mg tablet 250 mg PO DAILY 4 Days Qty: 4 0RF Rx Instructions: start on day 2 of therapy Print Language: Russian Sepsis Bolus Exclusion Sepsis Bolus Exclusion CHF/Renal Failure This patient met severe sepsis criteria due to the following condition(s):: H ypotension In my clinical judgement the administration of 30 ml/kg of crystalloid would be detrimental to this patient due to the patient's following conditions:: NYHA class III or IV Heart Failure(symptoms with low exertion or rest) Replace the 30 mls/kg with (Zero amount not acceptable and all fluids for severe sepsis must be given at GREATER than 125 mls/hr) Crystalloids amount given in mls: (rate must be at least 150cc/hr): 1,000 (bolus) Colloids amount given in mls:: 0
[2024-10-29 14:47] LABS: MANUAL DIFF FLAG NO
--- NOTE | 2024-10-29 14:49 | PC.NURSE ---
Pt very hard stick. Multiple attempts. Provider placing a fem line
[2024-10-29 14:51] LABS: Basophils Percent Auto 0.2 % (0-2); Eosinophils Percent Auto 0.1 % (0-4); Hematocrit 33.9 % (42.0-52.0); Imm Gran Abs Auto 0.08 X10*3/uL (0.00-0.03); Imm Gran Pct Auto 0.7 % (0.0-0.4); Lymphocytes Absolute Auto 1.3 X10*3/uL (1.2-4.9); Lymphocytes Percent Auto 10.5 % (20-40); Mean Corpuscular HGB Conc 29.5 g/dl (31.0-36.0); Mean Corpuscular Hemoglobin 25.9 pg (27.0-33.0); Mean Corpuscular Volume 87.8 fL (80.0-98.0); Mean Platelet Volume 10.5 fL (9.4-12.4); Monocytes Absolute Auto 0.4 X10*3/uL (0.1-1.2); Monocytes Percent Auto 3.5 % (2-11); Neutrophils Absolute Auto 10.3 x10*3/uL (2.0-8.3); Platelet Count 197 X10*3/uL (160-400); Red Blood Count 3.86 X10*6/uL (4.60-5.80); Red Cell Distribution Width 16.9 % (11.0-16.0); White Blood Count 12.1 X10*3/uL (4.8-10.8)
--- NOTE | 2024-10-29 14:51 | PC.NURSE ---
[facility] number: [phone]
[2024-10-29 14:52] LABS: Venous Blood Gas Refer to POC result
[2024-10-29 15:00] LABS: VBG HCO3 40 mmol/L (22-26); VBG pCO2 59 mmHg; VBG pH 7.44 (7.32-7.43); VBG pO2 32 mmHg
[2024-10-29 15:11] LABS: B Type Natriuretic Peptide 539 pg/mL (<100)
[2024-10-29 15:21] LABS: Alanine Aminotransferase < 6 U/L (0-40); Albumin Level 2.7 g/dL (3.5-5.0); Alkaline Phosphatase 207 U/L (39-117); Anion Gap 19 (12-20); Aspartate Amino Transferase 26 U/L (5-37); Bilirubin Direct 0.1 mg/dL (0.0-0.5); Blood Urea Nitrogen 21 mg/dL (9-16); C Reactive Protein 5.89 mg/dL (< or = 0.50); Calcium 8.8 mg/dL (8.4-10.2); Carbon Dioxide 26 mmol/L (22-29); Chloride 100 mmol/L (96-108); Creatinine Clr Calc Pharmacy 85.7; Estimated Glomerular Filt Rate > 60; Glucose Random 176 mg/dL (60-115); Magnesium 1.7 mg/dL (1.6-2.6); Potassium 5.1 mmol/L (3.3-5.1); Sodium 140 mmol/L (135-145); Total Protein 7.8 g/dL (6.5-8.0)
[2024-10-29 15:22] LABS: Lactic Acid 2.7 mmol/L (0.5-2.0)
[2024-10-29] MEDS: Norepinephrine Bitartrate/D5W 8 MG/250 ML PLAST..BAG 7.18 MG IVCONT (15:27)
[2024-10-29 15:28] LABS: Troponin-I High Sensitivity 13.5 ng/L (<3.5-35.0)
[2024-10-29 15:31] LABS: Bilirubin Total 0.3 mg/dL (0.0-1.0)
[2024-10-29] MEDS: Lactated Ringers 1,000 ML 999 ML IV ×2 (15:33→16:51)
[2024-10-29 15:36] LABS: Influenza A PCR NEGATIVE (Negative); Influenza B PCR NEGATIVE (Negative); Resp Syncy Virus RNA Qual PCR NEGATIVE (Negative); SARS COV2 PCR INHOUSE NEGATIVE (Negative)
[2024-10-29] MEDS: Hydrocortisone Sod Succ/PF 100 MG VIAL IVPUSH (15:36)
[2024-10-29] MEDS: Piperacillin Sodium/Tazobactam 4.5 GM in 0.9 % Sodium Chloride 100 ML IV (15:36)
[2024-10-29 15:42] LABS: INTERNATIONAL NORM RATIO 1.6 (0.9-1.1); Prothrombin Time 18.3 SEC (10.9-12.4)
[2024-10-29] MEDS: vancomycin/NS 2,000 MG/500 ML PLAST..BAG 250 MG IV (16:04)
--- NOTE | 2024-10-29 16:11 | ECG_ITS ---
Test Reason : DYSPNEA Blood Pressure : */* mmHG Vent. Rate : 89 BPM Atrial Rate : * BPM P-R Int : * ms QRS Dur : 102 ms QT Int : 386 ms P-R-T Axes : * -31 83 degrees QTcB Int : 469 ms Normal sinus rhythm with premature supra-ventricular complexes with premature ventricular or aberrantly conducted complexes Left axis deviation Minimal voltage criteria for LVH, may be normal variant ( R in aVL ) Abnormal ECG When compared to the previous EKG of No significant changes seen Referred By: Brunilda Beltran Electronically Signed By: KATHERINE AVILA MD
[2024-10-29] MEDS: Albuterol Sulfate 2.5 MG, Albuterol/Iprat 2.5/0.5MG 3 ML 3 ML INHALE (16:31)
[2024-10-29 16:45] LABS: Reflex Lactate? Lactic Acid Added
--- NOTE | 2024-10-29 16:58 | PC.NURSE ---
Pt maintaining sats on 8L Oxy mask. Provider had placed right fem central line, meds infusing through central line. Pt is intermittently alert, confused.
--- NOTE | 2024-10-29 16:59 | PC.NURSE ---
Pt presented to ED with pickering cath in place, pickering cath appeared dirty and urine is very cloudy and thick. Pickering cath changed out for new one, 16 fr, temp sensing, with no issue
[2024-10-29 17:07] LABS: Appearance Urine Cloudy; Color Urine Yellow; Glucose Urine UA 100 mg/dL (Negative); Nitrite Urine Positive (Negative); PH 6.5 (5.0-9.0); Specific Gravity - Urine 1.025 (1.005-1.025); UMIC TRIGGER UACC YES; Urine Blood Large (3+) (Negative); Urine Ketones Trace mg/dL (Negative); Urine Protein 100 (2+) mg/dL (Neg-Trace)
[2024-10-29] MEDS: iohexoL 350 MG/ML 100 ML INFUS..BTL IV (17:17)
[2024-10-29 17:26] LABS: Bacteria Urine 4+ (None Seen); Hyaline Casts Urine 0-2 /LPF (0-2); RBC Urine >20 /HPF (0-2); Squamous Epithelial Cell Urine 0-2 /HPF (0-2); Transitional Epi Cells Urine Present; UACC Culture Trigger YES; WBC Urine >50 /HPF (0-5)
[2024-10-29 17:27] LABS: Leukocyte Esterase Urine Large (3+) (Negative)
--- NOTE | 2024-10-29 17:32 | PC.NURSE ---
PER PROVIDER ATTEMPT TO TITRATE NOREPI DOWN
--- NOTE | 2024-10-29 17:33 | PC.NURSE ---
O2 weaned to pts baseline 4L O2 and maintaining sats
--- NOTE | 2024-10-29 17:35 | PC.NURSE ---
Norepi titrated back up due to hypotension, provider aware
[2024-10-29 17:44] LABS: ~Lactic Acid-LAB USE ONLY 1.8 mmol/L (0.5-2.0)
[2024-10-29 17:50] LABS: Troponin-I High Sensitivity 17.3 ng/L (<3.5-35.0)
--- NOTE | 2024-10-29 18:05 | PC.NURSE ---
Pt reporting he only swallows honey thick liquids due to dysphagia
[2024-10-29] MEDS: Meropenem 1 GM VIAL IVPUSH (18:25)
[2024-10-29] MEDS: Albumin Human 25 % 100 ML 133.33 ML IV ×2 (18:29→19:39)
--- NOTE | 2024-10-29 19:46 | PC.NURSE ---
norepi infusing at 0.09mcg/kg/min for bp 102/37
--- NOTE | 2024-10-29 20:16 | PC.NURSE ---
per dr Jordy Wood is off. turned off at this time.
--- NOTE | 2024-10-29 21:10 | PC.NURSE ---
pickering 125cc cloudy thick
--- NOTE | 2024-10-29 21:14 | PC.NURSE ---
at this time total intake is 2750 ivf and pickering output in total 125cc
[2024-10-29] MEDS: Midodrine HCl 5 MG TABLET PO (21:58)
--- NOTE | 2024-10-29 22:01 | PC.NURSE ---
pt took meds with thicken water.
--- NOTE | 2024-10-29 22:56 | PM.IMHP ---
History of Present Illness Date of Service: 10/29/24 Attending physician on admission: Lacho Cervantes Chief Complaint: confusion Pt is a 79 yo male with a pmhx significant for idiopathic pulmonary fibrosis, paroxysmal AFib on Eliquis, idiopathic thrombocytopenic purpura on chronic steroids, CHF, prostate cancer type 2 diabetes and chronic UTIs with Kelly, who presented to the ED due to altered mental status and purulent urine. He has a history of a recent hospitalization for possible UTI with treated with meropenem x3 days, urine culture was negative and he was sent home with Augmentin. He was also recently hospitalized from [facility] at [facility] for CHF exacerbation followed shortly by possible pneumonia. He was found to be hypoxic by EMS and he is on chronic oxygen. The patient is unable to give any history in the ED. the workup thus far has been significant for UTI, likely ESBL, and he was started on meropenem, initially vancomycin and Zosyn. He has been severely hypoxic and received pressors as well as [address] doses [address] CT was negative aside for a T4 lesion which is possibly metastasis from his prostate cancer, no PE. Chest x-ray negative, abdominopelvic CT negative. BNP elevated although recently hospitalized for CHF exacerbation and no signs of fluid overload currently. Kelly has been draining purulent urine minimally. Review of Systems Review of Systems: Yes Unobtainable due to mental condition and Unobtainable due to mental status COUNT INCLUDES THE [facility] Medical History Obstructive sleep apnea Generalized anxiety disorder Adjustment disorder Non-insulin dependent type 2 diabetes mellitus Dysphagia Heart failure with reduced ejection fraction Persistent atrial fibrillation Idiopathic pulmonary fibrosis Prostate cancer Chronic indwelling Kelly catheter Social History Household Members: Other Household Members Other:: roomate Housing: Assisted Do you presently have visiting nurse or other home services: Yes (snf) Alcohol intake: never Patient Tobacco Use Status: Never used Tobacco Smoked in Last 30 Days: No e-Cigarette/Vaping Use: Never Used Second Hand Smoke Exposure: No Use of substances other than those prescribed or required for medical reasons: No Advance Directives: No Advance Directives Information Provided: No Advance Directives Date on File: 10/14/24 service: No Meds Allergies Allergy/AdvReac Type Severity Reaction Status Date / Time latex Allergy Rash Verified 10/29/24 14:18 Active Medications: Current Medications Norepinephrine Bitartrate (Levophed) 8 mg in 250 mls @ 0 mls/hr IVCONT .Q0M TINA; Protocol Last Titration: 10/29/24 20:16 Dose: 0 mcg/kg/min, 0 mls/hr Home Medications ?Medication ?Instructions ?Recorded ?Confirmed ?Last Taken ?Type acetaminophen 500 mg tablet 1,000 mg PO BID 10/13/24 10/13/24 Unknown History apixaban 5 mg tablet (Eliquis) 5 mg PO BID 10/13/24 10/13/24 Unknown History clotrimazole 1 % topical cream 1 appl topical DAILY PRN Rash 10/13/24 10/13/24 Unknown History doxazosin 4 mg tablet 4 mg PO BID 10/13/24 10/13/24 Unknown History fluticasone 100 mcg-salmeterol 50 1 inh inhalation BID 10/13/24 10/13/24 Unknown History mcg/dose blistr powdr for inhalation (Advair Diskus) fluticasone propionate 50 2 spray intranasal DAILY 10/13/24 10/13/24 Unknown History mcg/actuation nasal spray,suspension folic acid 1 mg tablet 1 mg PO DAILY 10/13/24 10/13/24 Unknown History furosemide 40 mg tablet 40 mg PO BID 10/13/24 10/13/24 Unknown History ipratropium 0.5 mg-albuterol 3 mg 3 ml inhalation Q4H PRN Shortness 10/13/24 10/13/24 Unknown History (2.5 mg base)/3 mL nebulization Of Breath Or Wheezing soln metformin 500 mg tablet 500 mg PO BID 10/13/24 10/13/24 Unknown History omeprazole 20 mg capsule,delayed 20 mg PO DAILY 10/13/24 10/13/24 Unknown History release potassium chloride 20 mEq 20 meq PO BID 10/13/24 10/13/24 Unknown History tablet,extended release(part/cryst) prednisone 10 mg tablet 10 mg PO DAILY 10/13/24 10/13/24 Unknown History tamsulosin 0.4 mg capsule 0.4 mg PO DAILY 10/13/24 10/13/24 Unknown History Physical Exam Vital Signs and Narrative: Vital Signs: Last Vital Signs Temp 97.5 F 02/09/25 22:19 Pulse 73 10/29/24 22:19 Resp 22 H 10/29/24 22:19 BP 94/51 L 10/29/24 22:19 Pulse Ox 97 10/29/24 22:19 O2 Del Method Oxymask 10/29/24 22:19 O2 Flow Rate 3 10/29/24 22:19 Oxygen Flow Rate 15 10/29/24 14:07 BMI result Body Mass Index 24.9 General: Somnolent, unable to determine orientation, no acute distress Resp: crackles throughout CVS: regular rate, regulary rhythm +murmur GI: +BS, NT, no distention Skin: Warm, dry Neuro: PERRL Extremities: No LE edema Results Labs 10/29/24 14:42 10/29/24 14:42 Labs: Laboratory Results - last 24 hr 10/29/24 10/29/24 10/29/24 14:42 14:47 14:54 MCV 87.8 MCH 25.9 L MCHC 29.5 L RDW 16.9 H Plt Count 197 MPV 10.5 Immature Gran % (Auto) 0.7 H Neut % (Auto) 85.0 H Lymph % (Auto) 10.5 L [place] % (Auto) 3.5 Eos % (Auto) 0.1 Baso % (Auto) 0.2 Lymph # (Auto) 1.3 [place] # (Auto) 0.4 Eos # (Auto) 0.0 Baso # (Auto) 0.0 Abs Immat Gran (auto) 0.08 H Absolute Neuts (auto) 10.3 H Absolute Nucleated RBC 0.000 Nucleated RBC % (auto) 0.0 PT INR VBG pH 7.44 H VBG pCO2 59 VBG pO2 32 VBG HCO3 40 H VBG O2 Saturation 44.0 VBG Base Excess 14.0 Anion Gap 19 Estim Creat Clear Calc 85.7 Estimated GFR > 60 Random Glucose 176 H Lactic Acid 2.7 H* Lactic Acid F/U @ 2Hr Calcium 8.8 Magnesium 1.7 Total Bilirubin 0.3 Direct Bilirubin 0.1 AST 26 ALT < 6 Alkaline Phosphatase 207 H Troponin I High Sens 13.5 C-Reactive Protein 5.89 H B-Natriuretic Peptide 539 H Total Protein 7.8 Albumin 2.7 L Procalcitonin 0.10 Urine Color Urine Appearance Urine pH Ur Specific [place] Urine Protein Urine Glucose (UA) Urine Ketones Urine Blood Urine Nitrite Ur Leukocyte Esterase Urine RBC Urine WBC Ur Squamous Epith Cells Ur Transition Epith Cell Urine Bacteria Hyaline Casts Influenza Type A (PCR) NEGATIVE Influenza Type B (PCR) NEGATIVE RSV RNA Qual (PCR) NEGATIVE SARS-CoV-2 RNA (RT-PCR) NEGATIVE 10/29/24 10/29/24 10/29/24 15:29 16:47 17:20 MCV MCH MCHC RDW Plt Count MPV Immature Gran % (Auto) Neut % (Auto) Lymph % (Auto) [place] % (Auto) Eos % (Auto) Baso % (Auto) Lymph # (Auto) [place] # (Auto) Eos # (Auto) Baso # (Auto) Abs Immat Gran (auto) Absolute Neuts (auto) Absolute Nucleated RBC Nucleated RBC % (auto) PT 18.3 H INR 1.6 H VBG pH VBG pCO2 VBG pO2 VBG HCO3 VBG O2 Saturation VBG Base Excess Anion Gap Estim Creat Clear Calc Estimated GFR Random Glucose Lactic Acid Lactic Acid F/U @ 2Hr 1.8 Calcium Magnesium Total Bilirubin Direct Bilirubin AST ALT Alkaline Phosphatase Troponin I High Sens 17.3 C-Reactive Protein B-Natriuretic Peptide Total Protein Albumin Procalcitonin Urine Color Yellow Urine Appearance Cloudy Urine pH 6.5 Ur Specific [place] 1.025 Urine Protein 100 (2+) H Urine Glucose (UA) 100 H Urine Ketones Trace Urine Blood Large (3+) H Urine Nitrite Positive H Ur Leukocyte Esterase Large (3+) H Urine RBC >20 H Urine WBC >50 Ur Squamous Epith Cells 0-2 Ur Transition Epith Cell Present Urine Bacteria 4+ Hyaline Casts 0-2 Influenza Type A (PCR) Influenza Type B (PCR) RSV RNA Qual (PCR) SARS-CoV-2 RNA (RT-PCR) Assessment and Plan (1) Sepsis due to urinary tract infection: Status: Acute (2) Acute on chronic hypoxic respiratory failure: Status: Acute (3) Metabolic encephalopathy: Status: Acute (4) Chronic indwelling Kelly catheter: Status: Acute (5) Metabolic alkalosis: Status: Acute Plan Pt is a 79 yo male with a pmhx significant for idiopathic pulmonary fibrosis, paroxysmal AFib on Eliquis, idiopathic thrombocytopenic purpura on chronic steroids, CHF, prostate cancer, type 2 diabetes and chronic UTIs with Kelly, who presented to the ED due to altered mental status and purulent urine. ED consulted ICU for admission, it was recommended pt have 2 doses of albumin and discontinue pressors to avoid ICU stay. severe sepsis with acute on chronic respiratory failure and metabolic encephalopathy secondary to UTI - WBC 12.1, lactic 2.7, 1.8 on repeat, hypotensive, hypothermic and tachypneic - UA+, culture pending, recent ESBL infection, started on vanc and zosyn initially then switched to meropenum, continue - A/P CT negative - chest xray negative - chest CT with T4 lesion ?mets, no PE - VBG with metabolic alkalosis - given 2L LR, albumin x2, and started on norepinephrine in ED, off pressors now and maintaing systolic in mid 90s - add midodrine 5mg PO x1 now - admit to med tele - continue meropenum - monitor CBC and BMP idopathic pulmonary fibrosis - continue O2 and home meds paroxysmal a fib - EKG with NSR currently - continue eliquis idiopathic thrombocytopenic purpura - platelets normal - stress dose prednisone given in ED, continue regular dose - monitor CBC CHF, no acute exacerbation - BNP elevated but imagining negative for pulmonary edema and no pitting edema on exam - hold furosemide due to hypotension prostate cancer - ?T4 mets on imagining - f/u outpt T2DM - diabetic diet with honey thick liquids, advanced chopped diet - sliding scale insulin full code VTE prophy: eliquis Pt with severe sepsis secondary to UTI, requiring admission for at least 2 midnights stay for IV antibiotics and monitoring. Quality Stroke Does the patient have a stroke diagnosis?: No VTE Prior VTE?: No VTE Risk Level:: Medical - moderate - high VTE Device Contraindication: Treatment Not Indicated VTE Drug Contraindication: N/A - Med Ordered
[2024-10-30] VITALS (44 sets, daily range): BP systolic 77–131; BP diastolic 39–69; PULSE 74–113; RESP 13–39; TEMP 35.7–36.8; O2SAT 50–850
--- NOTE | 2024-10-30 01:00 | PC.NURSE ---
pt was found with o2 mask off sat was 50% on room air. pt confused, mask applied in in fio2 with minimal effect, resp present with provider, fio2 increased to 10L sat improved to 100%. then titrated to 5L and sat remained at 100%.
--- NOTE | 2024-10-30 01:02 | PC.NURSE ---
fio2 titra to 3L
--- NOTE | 2024-10-30 01:19 | PC.NURSE ---
provider is aware of the soft bp. pt has been in transd position.
--- NOTE | 2024-10-30 01:33 | PC.NURSE ---
Dr Spence at bedside for low bp, norepi is still paused at this time.
[2024-10-30] MEDS: Midodrine HCl 10 MG TABLET PO (01:54)
[2024-10-30] MEDS: 0.9 % Sodium Chloride 1,000 ML 999 ML IVCONT (01:54)
--- NOTE | 2024-10-30 01:57 | PC.NURSE ---
hospitalist aware of bp and 1l ns wide open and oral med given to increase bp. no order to restart norepi at this time.
--- NOTE | 2024-10-30 02:46 | PC.NURSE ---
dr britany stokes text in [facility] to bp and sat. waiting response.
--- NOTE | 2024-10-30 03:08 | PC.NURSE ---
kike received ok to restart pressore norepi
--- NOTE | 2024-10-30 03:29 | PC.NURSE ---
respirtory called sat dropping to mid 80's fio2 incrased to 10L sat inproved to 87% . ivf completed. bp now 104/52
--- NOTE | 2024-10-30 03:31 | PC.NURSE ---
resp at bedside.
--- NOTE | 2024-10-30 03:57 | PC.NURSE ---
dr Cervantes present verbal order for 1L ns wide open.
--- NOTE | 2024-10-30 04:08 | P.EN_ITS ---
Event Note Date of Service: 10/30/24 Event Note: Patient has had persistent hypotension during the course of the evening. He is being treated for Urosepsis and is on Meropenem He has received a total of 4 L of IV fluids and 15 mg of Midodrine unfortunately is still hypotensive with minimal urine output. However his MAP has been averaging slightly above 60 and he is easily arousable. After d/w nursing team, a decision was made to try get him to MICU at [facility] as our ICU is full. I called the [facility] transfer line ( ) and unfortunately, they do not have any available beds Ass/Plan 1. Septic shock - 2/2 UTI - continue Meropenem - continue IV fluids for resuscitation - will continue to monitor Time Spent With Patient Time: Total time managing care of this patient today __15__ minutes.
[2024-10-30 04:47] LABS: MANUAL DIFF FLAG NO
[2024-10-30 04:49] LABS: Basophils Percent Auto 0.2 % (0-2); Eosinophils Percent Auto 0.1 % (0-4); Hematocrit 27.9 % (42.0-52.0); Hemoglobin 8.1 g/dl (14.0-18.0); Imm Gran Abs Auto 0.06 X10*3/uL (0.00-0.03); Imm Gran Pct Auto 0.5 % (0.0-0.4); Lymphocytes Absolute Auto 2.4 X10*3/uL (1.2-4.9); Lymphocytes Percent Auto 18.7 % (20-40); Mean Corpuscular Volume 89.7 fL (80.0-98.0); Mean Platelet Volume 10.9 fL (9.4-12.4); Monocytes Absolute Auto 0.7 X10*3/uL (0.1-1.2); Monocytes Percent Auto 5.1 % (2-11); Neutrophils Absolute Auto 9.8 x10*3/uL (2.0-8.3); Neutrophils Percent Auto 75.4 % (45-73); Platelet Count 177 X10*3/uL (160-400); Red Blood Count 3.11 X10*6/uL (4.60-5.80); Red Cell Distribution Width 16.7 % (11.0-16.0)
[2024-10-30 05:06] LABS: Anion Gap 12 (12-20); Blood Urea Nitrogen 16 mg/dL (9-16); Calcium 8.2 mg/dL (8.4-10.2); Carbon Dioxide 30 mmol/L (22-29); Chloride 106 mmol/L (96-108); Creatinine Clr Calc Pharmacy 99.8; Estimated Glomerular Filt Rate > 60; Glucose Random 131 mg/dL (60-115); Sodium 144 mmol/L (135-145)
--- NOTE | 2024-10-30 05:14 | PM.EVENT ---
Event Note Date of Service: 10/30/24 Event Note: pt has had multiple episodes of hypotension throughout the night requiring an additional liter of fluids and midodrine 10mg. urine is draining from pickering, bladder scan 88cc. BP is maintaining, currently 116/82 when pt evaluated. awake and alert. asking for something to drink. improving. Time Spent With Patient Time: Total time managing care of this patient today ____ minutes.
[2024-10-30] MEDS: Meropenem 1 GM VIAL IVPUSH ×3 (05:15→18:35)
[2024-10-30] MEDS: 0.9 % Sodium Chloride 1,000 ML 999 ML IV (05:15)
--- NOTE | 2024-10-30 05:28 | PC.NURSE ---
pt vital 103/59 hr 82. pt is putting out 50cc at a time for a total of 400cc in the pickering bag. pt is more awake and is asking for pillows, drinks, and vague on where he is.
--- NOTE | 2024-10-30 05:58 | PC.NURSE ---
pt repositioned and had a soft stool brown. pt was aggitated during the turning and repositioning. hr elevated to 114 and bp 131/61. will retake to verify a true bp reading. pt sat up and down pt now sat at 90% when he speaks up .
[2024-10-30] MEDS: Pantoprazole Sodium 40 MG/10 ML VIAL IVPUSH ×2 (06:27→17:09)
--- NOTE | 2024-10-30 06:35 | PC.NURSE ---
dr eubanks updated on vitals pickering output in total 400cc cloudy, henriquez. pt stool brown soft.
[2024-10-30 07:08] LABS: Glucose, Whole Blood 181 mg/dL (60-115)
[2024-10-30] MEDS: Norepinephrine Bitartrate/D5W 8 MG/250 ML PLAST..BAG 12.93 MG IVCONT (07:13)
--- NOTE | 2024-10-30 07:15 | PC.NURSE ---
assumed care of patient at 0700, patient noted to be hypoxic 85% on 4l oxymask when this RN entired room, patient levophed gtt noted to be empty on pump and beeping, unknown how long gtt had been stopped. prev RN restarted levophed gtt at 1mcg/kg which is what patient was running at prior to gtt running out. patient slightly hypotensive when restarted. patient oxygen bumped to 7L on oxymask and recovered to 88%. patient has pickering cath in place, prev emptied by prev shift RN. patient VSS at this time. patient awakens to verbal stimuli.
[2024-10-30 07:31] LABS: ABG Base Excess 3.2 mmol/L; ABG HCO3 29 mmol/L (22-26); ABG pCO2 55 mmHg (32-45); ABG pH 7.33 (7.35-7.45); ABG pO2 69 mmHg (83-108)
--- NOTE | 2024-10-30 08:53 | PC.NURSE ---
patient sat up to eat breakfast, patient placed on NC 6L. patient desat when eating and drinking to 50s%. inpatient provider at bedside during occurrence, patient placed on non rebreather 15L, patient recovered to 96%. placed back on oxymask 6L, now satting 92%. inpatient provider recommends patient be NPO until more stable.
--- NOTE | 2024-10-30 10:32 | PC.NURSE ---
patient remains on levophed gtt, documented per NOV. patient arousable to verbal stimuli, is alert and oriented. patient boosted and repositioned with technology development intern. patient linens dry and intact. plan of care on going at this time.
--- NOTE | 2024-10-30 11:14 | P.PNIM_ITS ---
Subjective Subjective Date of Service: 10/30/24 Interval History: Admitted with sepsis, UTI still hypotensive and hypoxic Plan is to tx to ICU for continued pressor support and likely diuresis Physical Exam 2 Vital Signs: Vital Signs: Last Vital Signs Temp 97.7 F 10/30/24 09:53 Pulse 90 10/30/24 11:05 Resp 30 H 10/30/24 09:53 BP 103/52 L 10/30/24 11:05 Pulse Ox 96 10/30/24 09:53 O2 Del Method Oxymask 10/30/24 09:53 O2 Flow Rate 7 10/30/24 09:53 Oxygen Flow Rate 15 10/29/24 14:07 BMI result Body Mass Index 24.9 Objective Data Active Medications Acetaminophen (Acetaminophen 325 Mg Tablet) 975 mg PO Q6H PRN PRN Reason: Pain, Mild 1-3,fever,headache Apixaban (Apixaban 5 Mg Tablet) 5 mg PO BID [facility] Last Admin: 10/30/24 08:53 Dose: Not Given Documented By: ABHIJIT Non-Admin Reason: NPO Calcium Carbonate (Calcium Carbonate 750 Mg Tab.Chew) 750 mg PO Q4H PRN PRN Reason: Heartburn Dextrose (Dextrose 50 % 25 Gm/50 Ml Syringe) 25 gm IVPUSH Q15M PRN; Protocol PRN Reason: per Hypoglycemia Standing Ord. Glucose (Glucose Gel 15 Gm Gel..Gram.) 15 gm PO Q15M PRN; Protocol PRN Reason: per Hypoglycemia Standing Ord. Norepinephrine Bitartrate (Levophed) 8 mg in 250 mls @ 0 mls/hr IVCONT .Q0M [facility]; Protocol Last Titration: 10/30/24 11:05 Dose: 0.2 mcg/kg/min, 28.73 mls/hr Documented By: ABHIJIT Insulin Human Lispro (Insulin Lispro 100 Unit/Ml 3 Ml Vial) 0 unit SUBCUT QIDACHS [facility]; Protocol Last Admin: 10/30/24 07:45 Dose: Not Given Documented By: ABHIJIT Non-Admin Reason: patient not eating breakfast Magnesium Hydroxide (Milk Of Magnesia 30 Ml Oral.Susp) 30 ml PO DAILY PRN PRN Reason: Constipation Melatonin (Melatonin 3 Mg Tablet) 6 mg PO BEDTIME PRN PRN Reason: Insomnia Meropenem (Meropenem 1 Gm Vial) 1 gm IVPUSH Q8H [facility] Last Admin: 10/30/24 10:59 Dose: 1 gm Documented By: ABHIJIT Ondansetron HCl (Ondansetron Hcl 4 Mg/2 Ml Vial) 4 mg IVPUSH Q8H PRN PRN Reason: Nausea and Vomiting Pantoprazole Sodium (Pantoprazole Sodium 40 Mg/10 Ml Vial) 40 mg IVPUSH BID@0630,1630 [facility] Last Admin: 10/30/24 06:27 Dose: 40 mg Documented By: MCTRishi Polyethylene Glycol (Polyethylene Glycol 3350 17 Gm Powd.Pack) 17 gm PO DAILY PRN PRN Reason: Constipation Sodium Chloride (0.9 % Sodium Chloride Flush 3 Ml Syringe) 3 ml IVFLUSH QSHIFT [facility] Last Admin: 10/30/24 07:44 Dose: Not Given Documented By: ABHIJIT Non-Admin Reason: IV Running Labs 10/30/24 04:30 10/30/24 04:30 Labs: Laboratory Results - last 24 hr 10/29/24 10/29/24 10/29/24 14:42 14:47 14:54 MCV 87.8 MCH 25.9 L MCHC 29.5 L RDW 16.9 H Plt Count 197 MPV 10.5 Immature Gran % (Auto) 0.7 H Neut % (Auto) 85.0 H Lymph % (Auto) 10.5 L Long % (Auto) 3.5 Eos % (Auto) 0.1 Baso % (Auto) 0.2 Lymph # (Auto) 1.3 Long # (Auto) 0.4 Eos # (Auto) 0.0 Baso # (Auto) 0.0 Abs Immat Gran (auto) 0.08 H Absolute Neuts (auto) 10.3 H Absolute Nucleated RBC 0.000 Nucleated RBC % (auto) 0.0 PT INR O2 Saturation ABG pH at Pt Temp ABG pCO2 at Pt Temp ABG pO2 at Pt Temp ABG HCO3 ABG Base Excess (Actual) VBG pH 7.44 H VBG pCO2 59 VBG pO2 32 VBG HCO3 40 H VBG O2 Saturation 44.0 VBG Base Excess 14.0 Anion Gap 19 Estim Creat Clear Calc 85.7 Estimated GFR > 60 POC Glucose Random Glucose 176 H Lactic Acid 2.7 H* Lactic Acid F/U @ 2Hr Calcium 8.8 Magnesium 1.7 Total Bilirubin 0.3 Direct Bilirubin 0.1 AST 26 ALT < 6 Alkaline Phosphatase 207 H Troponin I High Sens 13.5 C-Reactive Protein 5.89 H B-Natriuretic Peptide 539 H Total Protein 7.8 Albumin 2.7 L Procalcitonin 0.10 Urine Color Urine Appearance Urine pH Ur Specific [place] Urine Protein Urine Glucose (UA) Urine Ketones Urine Blood Urine Nitrite Ur Leukocyte Esterase Urine RBC Urine WBC Ur Squamous Epith Cells Ur Transition Epith Cell Urine Bacteria Hyaline Casts Influenza Type A (PCR) NEGATIVE Influenza Type B (PCR) NEGATIVE RSV RNA Qual (PCR) NEGATIVE SARS-CoV-2 RNA (RT-PCR) NEGATIVE 10/29/24 10/29/24 10/29/24 15:29 16:47 17:20 MCV MCH MCHC RDW Plt Count MPV Immature Gran % (Auto) Neut % (Auto) Lymph % (Auto) Long % (Auto) Eos % (Auto) Baso % (Auto) Lymph # (Auto) Long # (Auto) Eos # (Auto) Baso # (Auto) Abs Immat Gran (auto) Absolute Neuts (auto) Absolute Nucleated RBC Nucleated RBC % (auto) PT 18.3 H INR 1.6 H O2 Saturation ABG pH at Pt Temp ABG pCO2 at Pt Temp ABG pO2 at Pt Temp ABG HCO3 ABG Base Excess (Actual) VBG pH VBG pCO2 VBG pO2 VBG HCO3 VBG O2 Saturation VBG Base Excess Anion Gap Estim Creat Clear Calc Estimated GFR POC Glucose Random Glucose Lactic Acid Lactic Acid F/U @ 2Hr 1.8 Calcium Magnesium Total Bilirubin Direct Bilirubin AST ALT Alkaline Phosphatase Troponin I High Sens 17.3 C-Reactive Protein B-Natriuretic Peptide Total Protein Albumin Procalcitonin Urine Color Yellow Urine Appearance Cloudy Urine pH 6.5 Ur Specific [place] 1.025 Urine Protein 100 (2+) H Urine Glucose (UA) 100 H Urine Ketones Trace Urine Blood Large (3+) H Urine Nitrite Positive H Ur Leukocyte Esterase Large (3+) H Urine RBC >20 H Urine WBC >50 Ur Squamous Epith Cells 0-2 Ur Transition Epith Cell Present Urine Bacteria 4+ Hyaline Casts 0-2 Influenza Type A (PCR) Influenza Type B (PCR) RSV RNA Qual (PCR) SARS-CoV-2 RNA (RT-PCR) 10/30/24 10/30/24 10/30/24 04:30 07:05 07:28 MCV 89.7 MCH 26.0 L MCHC 29.0 L RDW 16.7 H Plt Count 177 MPV 10.9 Immature Gran % (Auto) 0.5 H Neut % (Auto) 75.4 H Lymph % (Auto) 18.7 L Long % (Auto) 5.1 Eos % (Auto) 0.1 Baso % (Auto) 0.2 Lymph # (Auto) 2.4 Long # (Auto) 0.7 Eos # (Auto) 0.0 Baso # (Auto) 0.0 Abs Immat Gran (auto) 0.06 H Absolute Neuts (auto) 9.8 H Absolute Nucleated RBC 0.000 Nucleated RBC % (auto) 0.0 PT INR O2 Saturation 91.0 ABG pH at Pt Temp 7.33 L ABG pCO2 at Pt Temp 55 H ABG pO2 at Pt Temp 69 L ABG HCO3 29 H ABG Base Excess (Actual) 3.2 VBG pH VBG pCO2 VBG pO2 VBG HCO3 VBG O2 Saturation VBG Base Excess Anion Gap 12 Estim Creat Clear Calc 99.8 Estimated GFR > 60 POC Glucose 181 H Random Glucose 131 H Lactic Acid Lactic Acid F/U @ 2Hr Calcium 8.2 L D Magnesium Total Bilirubin Direct Bilirubin AST ALT Alkaline Phosphatase Troponin I High Sens C-Reactive Protein B-Natriuretic Peptide Total Protein Albumin Procalcitonin Urine Color Urine Appearance Urine pH Ur Specific [place] Urine Protein Urine Glucose (UA) Urine Ketones Urine Blood Urine Nitrite Ur Leukocyte Esterase Urine RBC Urine WBC Ur Squamous Epith Cells Ur Transition Epith Cell Urine Bacteria Hyaline Casts Influenza Type A (PCR) Influenza Type B (PCR) RSV RNA Qual (PCR) SARS-CoV-2 RNA (RT-PCR) Microbiology Microbiology Results: Microbiology 10/29/24 Unknown Urine Culture - Preliminary Urine Catheterized - Kelly Catheter Culture in progress. Assessment and Plan (1) UTI (urinary tract infection): Status: Acute Plan Pt is a 79 yo male with a pmhx significant for idiopathic pulmonary fibrosis, paroxysmal AFib on Eliquis, idiopathic thrombocytopenic purpura on chronic steroids, CHF, prostate cancer, type 2 diabetes and chronic UTIs with Kelly, who presented to the ED due to altered mental status and purulent urine. ED consulted ICU for admission, it was recommended pt have 2 doses of albumin and discontinue pressors to avoid ICU stay. Hypotension from sepsis started on norepinephrine in ED, off pressors and then back on overnight still hypotensive Plan for tx to ICU CHF, unspecified with hypoxia likely from fluid BNP elevated will need careful diuresis as pt is hypotensive keep NO for now Severe sepsis with acute on chronic respiratory failure and metabolic encephalopathy secondary to UTI WBC 12.1, lactic 2.7, 1.8 on repeat, hypotensive, hypothermic and tachypneic UA+, culture pending, recent ESBL infection, started on vanc and zosyn initially then switched to meropenem chest CT with T4 lesion ?mets, no PE or pneumonia VBG with metabolic alkalosis s/p 2L LR, albumin x2, and s/p midodrine 5mg PO x1 now continue meropenem idopathic pulmonary fibrosis continue O2 and titrate paroxysmal a fib EKG with NSR currently continue eliquis idiopathic thrombocytopenic purpura platelets normal stress dose prednisone given in ED, continue regular dose monitor CBC prostate cancer ?T4 mets on imagining f/u outpt T2DM diabetic diet with honey thick liquids, advanced chopped diet (NPO for now) sliding scale insulin full code VTE prophy: eliquis Quality Stroke Does the patient have a stroke diagnosis?: No VTE Prior VTE?: No VTE Risk Level:: Medical - moderate - high VTE Device Contraindication: Treatment Not Indicated VTE Drug Contraindication: N/A - Med Ordered
--- NOTE | 2024-10-30 11:15 | PC.NURSE ---
icu attending at bedside for patient eval
[2024-10-30] MEDS: Norepinephrine Bitartrate/D5W 8 MG/250 ML PLAST..BAG 31.6 MG IVCONT (11:29)
--- NOTE | 2024-10-30 11:30 | PC.NURSE ---
levophed gtt finished, additional bag of levophed hung and continued at .22mcg/kg/min. patient hypotensive 78/52 but alert and oriented x3. patient given wet sponge for mouth. patent remains afebrile, normal sinus rhythm
[2024-10-30 12:52] LABS: ABG Refer to POC result
--- NOTE | 2024-10-30 13:14 | MHC.CM.PN ---
SUPERVISOR LEAD BURNING CALLED AND SPOKE WITH SON ABOUT PT. PT WAS LTC AT [facility] PT'S SON, CHRIS, , WAS INTERESTED IN HAVING HIS FATHER MOVED TO A DIFFERENT FACILITY.. THIS SUPERVIS[employer] LE[employer] BURNING PLACED MULTIPLE REQUESTS FOR SNF'S CLOSER TO SON[facility] AND [facility] WAS ALSO A RETURN REFERRAL PLACED FOR PT'S CURRENT SNF. IMM VERBALLY DELIVERED TO SON. PT WILL NEED BLS TRANSPORT TO SNF.
[2024-10-30 13:34] LABS: Glucose, Whole Blood 131 mg/dL (60-115)
--- NOTE | 2024-10-30 13:34 | PHA.MEDREC ---
Addendum entered by Daisha Love RPh 10/30/24 15:11: Med rec was reviewed by [facility]. Original Note: Pharmacy Consult ? Medication Reconciliation Pharmacy has completed the medication reconciliation. Utilized list from [facility] to confirm med list.
--- NOTE | 2024-10-30 15:44 | HO.SKINPHOTO ---
Location: Right Upper Back Category: Pressure Stage: Stg 1 vs DTI? Location: R Buttock Category: Pressure Stage: DTI Skin photos taken on admission. Wound care consult placed per policy.
[2024-10-30] MEDS: 0.9 % Sodium Chloride Flush 3 ML SYRINGE IVFLUSH ×2 (16:43→20:58)
[2024-10-30 16:45] LABS: Glucose, Whole Blood 116 mg/dL (60-115)
--- NOTE | 2024-10-30 17:21 | W.PM.CCCN ---
History of Present Illness Data of Consult Service Date: 10/30/24 Primary Care Provider: Yoselyn Ventura MD [facility] Reason for consult: Hypotension 79-year-old gentleman with past medical history of diabetes mellitus, idiopathic pulmonary fibrosis, paroxysmal atrial fibrillation on Eliquis, ITP on chronic steroids, CHF, prostate cancer with multiple UTIs in the past presented to the ED with altered sensorium and hypotension that initially responded to albumin. The patient was admitted to hospitalist service later on patient became hypotensive again started on Levophed support and MICU was consulted for admission. Labs okay, lactate normal, urine dirty with nitrate positive. Bedside echo showed slightly depressed LV systolic function, dilated RV and IVCs Review of Systems Review of Systems: Unable to obtain as patient is confused PMFSH Past Medical History Medical History Obstructive sleep apnea Generalized anxiety disorder Adjustment disorder Non-insulin dependent type 2 diabetes mellitus Dysphagia Heart failure with reduced ejection fraction Persistent atrial fibrillation Idiopathic pulmonary fibrosis Prostate cancer Chronic indwelling Kelly catheter Social History Social History Household Members: Other Household Members Other:: roomate Housing: Custodial Do you presently have visiting nurse or other home services: No Alcohol intake: never Patient Tobacco Use Status: Never used Tobacco e-Cigarette/Vaping Use: Never Used Second Hand Smoke Exposure: No Advance Directives Date on File: 10/14/24 service: No Meds Allergies Allergy/AdvReac Type Severity Reaction Status Date / Time latex Allergy Rash Verified 10/29/24 14:18 Active Medications: Current Medications Acetaminophen (Acetaminophen 325 Mg Tablet) 975 mg PO Q6H PRN PRN Reason: Pain, Mild 1-3,fever,headache Albuterol/Ipratropium (Albuterol/Iprat 2.5/0.5mg 3 Ml Ampul.Neb) 3 ml INHALE RQ6H WHILE AWAKE PRN PRN Reason: Shortness of Breath Apixaban (Apixaban 5 Mg Tablet) 5 mg PO BID [facility] Last Admin: 10/30/24 08:53 Dose: Not Given Calcium Carbonate (Calcium Carbonate 750 Mg Tab.Chew) 750 mg PO Q4H PRN PRN Reason: Heartburn Dextrose (Dextrose 50 % 25 Gm/50 Ml Syringe) 25 gm IVPUSH Q15M PRN; Protocol PRN Reason: per Hypoglycemia Standing Ord. Glucose (Glucose Gel 15 Gm Gel..Gram.) 15 gm PO Q15M PRN; Protocol PRN Reason: per Hypoglycemia Standing Ord. Norepinephrine Bitartrate (Levophed) 8 mg in 250 mls @ 0 mls/hr IVCONT .Q0M [facility]; Protocol Last Titration: 10/30/24 11:58 Dose: 0.22 mcg/kg/min, 31.6 mls/hr Insulin Human Lispro (Insulin Lispro 100 Unit/Ml 3 Ml Vial) 0 unit SUBCUT QIDACHS [facility]; Protocol Last Admin: 10/30/24 16:43 Dose: Not Given Magnesium Hydroxide (Milk Of Magnesia 30 Ml Oral.Susp) 30 ml PO DAILY PRN PRN Reason: Constipation Melatonin (Melatonin 3 Mg Tablet) 6 mg PO BEDTIME PRN PRN Reason: Insomnia Meropenem (Meropenem 1 Gm Vial) 1 gm IVPUSH Q8H [facility] Last Admin: 10/30/24 10:59 Dose: 1 gm Ondansetron HCl (Ondansetron Hcl 4 Mg/2 Ml Vial) 4 mg IVPUSH Q8H PRN PRN Reason: Nausea and Vomiting Pantoprazole Sodium (Pantoprazole Sodium 40 Mg/10 Ml Vial) 40 mg IVPUSH BID@0630,1630 [facility] Last Admin: 10/30/24 17:09 Dose: 40 mg Polyethylene Glycol (Polyethylene Glycol 3350 17 Gm Powd.Pack) 17 gm PO DAILY PRN PRN Reason: Constipation Sodium Chloride (0.9 % Sodium Chloride Flush 3 Ml Syringe) 3 ml IVFLUSH QSHIFT [facility] Last Admin: 10/30/24 16:43 Dose: 3 ml Home Medications ?Medication ?Instructions ?Recorded ?Confirmed ?Last Taken ?Type apixaban 5 mg tablet (Eliquis) 5 mg PO BID 10/13/24 10/30/24 Unknown History clotrimazole 1 % topical cream 1 appl topical DAILY PRN Rash 10/13/24 10/30/24 Unknown History doxazosin 4 mg tablet 4 mg PO BID 10/13/24 10/30/24 Unknown History fluticasone 100 mcg-salmeterol 50 1 inh inhalation BID 10/13/24 10/30/24 Unknown History mcg/dose blistr powdr for inhalation (Advair Diskus) fluticasone propionate 50 2 spray intranasal DAILY 10/13/24 10/30/24 Unknown History mcg/actuation nasal spray,suspension folic acid 1 mg tablet 1 mg PO DAILY 10/13/24 10/30/24 Unknown History furosemide 40 mg tablet 40 mg PO BID 10/13/24 10/30/24 Unknown History ipratropium 0.5 mg-albuterol 3 mg 3 ml inhalation Q4H PRN Shortness 10/13/24 10/30/24 Unknown History (2.5 mg base)/3 mL nebulization Of Breath Or Wheezing soln metformin 500 mg tablet 500 mg PO BID 10/13/24 10/30/24 Unknown History omeprazole 20 mg capsule,delayed 20 mg PO DAILY 10/13/24 10/30/24 Unknown History release potassium chloride 20 mEq 20 meq PO BID 10/13/24 10/30/24 Unknown History tablet,extended release(part/cryst) prednisone 10 mg tablet 10 mg PO DAILY 10/13/24 10/30/24 Unknown History tamsulosin 0.4 mg capsule 0.4 mg PO BEDTIME 10/13/24 10/30/24 Unknown History acetaminophen 500 mg tablet 1,000 mg PO BID 10/30/24 10/30/24 Unknown History prednisone 20 mg tablet 20 mg PO DAILY 10/30/24 10/30/24 Unknown History Physical Exam Vital Signs: Vital Signs: Last Vital Signs Temp 97.9 F 10/30/24 17:00 Pulse 98 10/30/24 17:00 Resp 32 H 10/30/24 17:00 BP 102/55 L 10/30/24 17:00 Pulse Ox 6 L 10/30/24 17:00 O2 Del Method Oxymask 10/30/24 17:00 O2 Flow Rate 6 10/30/24 17:00 Oxygen Flow Rate 15 10/29/24 14:07 BMI result Body Mass Index 24.9 General: Patient isn't acute distress, ill appearing and tired appearing Nutritional Appearance: well nourished and overweight Eyes: appearance normal, both eyes and all related structures; Alignment and Position: alignment normal and position normal Neck: No lymphadenopathy, no thyromegaly Resp: bilateral air entry equal, bilateral diffuse crackles heard, dyspneic Cardio: Regular rate, regular rhythm; Heart sounds: S1 normal heart sound present and S2 normal heart sound present GI: soft, nontender, no guarding, no hepatosplenomegaly : bladder normal to inspection, bladder normal to palpation, no renal angle tenderness Skin: no rashes or lesions noted and elasticity normal Neuro: Confused, no focal deficits, moves all extremities Results Labs 10/30/24 04:30 10/30/24 04:30 Labs: Short CBC 10/30/24 Range/Units 04:30 WBC 13.0 H (4.8-10.8) X10*3/uL Hgb 8.1 L (14.0-18.0) g/dl Hct 27.9 L (42.0-52.0) % Plt Count 177 (160-400) X10*3/uL BMP 10/30/24 04:30 Sodium 144 Potassium 4.0 D Chloride 106 Carbon Dioxide 30 H BUN 16 Creatinine 0.61 Calcium 8.2 L D Microbiology Microbiology Results: Microbiology 10/29/24 14:42 Blood - Venous Blood Culture - Preliminary No growth after 24 hours. 10/29/24 Unknown Urine Catheterized - Kelly Catheter Urine Culture - Preliminary Culture in progress. Assessment and Plan (1) Septic shock: Status: Acute (2) Metabolic encephalopathy: Status: Acute (3) Acute on chronic hypoxic respiratory failure: Status: Acute Plan Neuro: Acute encephalopathy possibly due to metabolic encephalopathy from systemic sepsis Avoid any sedatives, no focal deficits Close neurological status monitoring in the ICU every hour Cardiac: Septic Shock: Possibly secondary to urinary tract infection On Levophed support, titrate Levophed to keep map above 65 mm Hg In bedside echo showed dilated RV, slightly depressed LV systolic function Paroxysmal atrial fibrillation: Currently rate controlled, we will withhold any rate control medications due to shock Continue apixaban for anticoagulation Respiratory: Acute hypoxemic respiratory failure due to idiopathic pulmonary fibrosis and heart failure Currently on OxyMask at 6 liters/minute Crackles are possibly secondary to idiopathic pulmonary fibrosis. We will hold off on diuresis unless patient has increased oxygen requirement GI: We will start on tube feeds Renal: Normal renal function We will hold off on diuresis unless patient becomes hypoxic We will closely monitor I's and O's Avoid nephrotoxic medications Heme: Chronic anemia, closely monitor H&H, transfuse for hemoglobin less than 7 grams/deciliter Endocrine: Blood sugars under control Sliding scale insulin as needed Infectious disease: Pancultures sent Lactate down from 2.1-1.8 Continue meropenem for antibiotic coverage Musculoskeletal: Decubitus ulcer prevention protocol Lines: Peripheral Prophylaxis: Apixaban, pantoprazole Total critical care time spent is about 45 minutes on evaluating and admitting this critically ill patient with multiple organ failures to medical ICU, close hemodynamic monitoring, vasopressor management, titrating vasopressors, stabilizing respiratory status, managing episodes of desaturations, review of chart, review of images at this time is excluding any procedural time
[2024-10-30] MEDS: Norepinephrine Bitartrate/D5W 8 MG/250 ML PLAST..BAG 34.47 MG IVCONT (18:31)
--- NOTE | 2024-10-30 19:42 | PC.NURSE ---
Patient admitted to ICU from ED late 15:00 hour, approximately 15:40. Production Support Specialist assumed care of this patient at that time. Patient is A&Ox4. SR on tele w/ frequent PACs and PVCs. Dr. Redd made aware. Remains NPO pending formal speech eval (placed and pending) after event confirming for aspiration in ED prior to assuming care, per handoff report. PO care/mouth swabs offered, however this patient declined job specification writer's offer and was resistive to care including repositioning as evidenced by swearing at staff and demanding staff to leave the room. Aspiration precautions in place. No vomiting noted. Pt did have a single episode of desats with spo2 into mid 80's at rest while on the 6L nc that patient had arrived and been on. Oxymask placed at 6L with +recovery w/ spo2 92-94%. Pt denied SOB and breathing was even and unlabored during this episode. Lungs auscultated with crackles in bases. Dr. Redd was notified and placed an order for a CXR (see imaging formal impression in report). Comparison of this to most recent previous CXR was discussed with the MD. Of note, patient has a pmhx of idiopathic pulmonary fibrosis. MD verbal order received to maintain spo2 90% and above. No further episodes noted, breathing remained even and unlabored without distress for the remainder of this job specification writer care. Pt continues on levophed, titrated per MAR. Q6h POC ordered, last at 16:43. Wounds present on admission; see wound care photos. Foams placed. Wound care consult placed and pending. Pt denies pain. Observed resting in bed watching tv without distress. Bed alarm on and safety measures in place. Please see shift assessment, tasks, and MAR for full details. Handoff report given to oncoming RN at 19:00.
[2024-10-30] MEDS: Furosemide 20 MG/2 ML VIAL IVPUSH (20:53)
[2024-10-30 21:32] LABS: Glucose, Whole Blood 143 mg/dL (60-115)
[2024-10-30 23:52] LABS: Glucose, Whole Blood 162 mg/dL (60-115)
[2024-10-31] VITALS (69 sets, daily range): BP systolic 67–142; BP diastolic 34–88; PULSE 55–113; RESP 11–41; TEMP 31.2–39; O2SAT 87–100; BMI 29.3
[2024-10-31] MEDS: Norepinephrine Bitartrate/D5W 8 MG/250 ML PLAST..BAG 37.34 MG IVCONT (00:53)
[2024-10-31] MEDS: Meropenem 1 GM VIAL IVPUSH ×3 (02:37→18:22)
[2024-10-31 04:47] LABS: VBG Base Excess 7.7 mmol/L; VBG HCO3 35 mmol/L (22-26); VBG pCO2 64 mmHg; VBG pH 7.34 (7.32-7.43); VBG pO2 46 mmHg
[2024-10-31 04:59] LABS: Venous Blood Gas Refer to POC result
[2024-10-31 05:14] LABS: Glucose, Whole Blood 174 mg/dL (60-115)
[2024-10-31 05:15] LABS: MANUAL DIFF FLAG NO
[2024-10-31 05:18] LABS: Basophils Percent Auto 0.3 % (0-2); Eosinophils Absolute Auto 0.3 X10*3/uL (0.0-0.4); Eosinophils Percent Auto 2.3 % (0-4); Hematocrit 30.5 % (42.0-52.0); Hemoglobin 8.9 g/dl (14.0-18.0); Imm Gran Abs Auto 0.09 X10*3/uL (0.00-0.03); Imm Gran Pct Auto 0.6 % (0.0-0.4); Lymphocytes Absolute Auto 2.3 X10*3/uL (1.2-4.9); Lymphocytes Percent Auto 16.8 % (20-40); Mean Corpuscular HGB Conc 29.2 g/dl (31.0-36.0); Mean Corpuscular Hemoglobin 26.3 pg (27.0-33.0); Mean Platelet Volume 11.4 fL (9.4-12.4); Monocytes Absolute Auto 0.8 X10*3/uL (0.1-1.2); Monocytes Percent Auto 5.5 % (2-11); Neutrophils Absolute Auto 10.4 x10*3/uL (2.0-8.3); Neutrophils Percent Auto 74.5 % (45-73); Platelet Count 203 X10*3/uL (160-400); Red Blood Count 3.39 X10*6/uL (4.60-5.80); Red Cell Distribution Width 16.3 % (11.0-16.0); White Blood Count 13.9 X10*3/uL (4.8-10.8)
[2024-10-31 05:39] LABS: Alanine Aminotransferase < 6 U/L (0-40); Albumin Level 2.7 g/dL (3.5-5.0); Alkaline Phosphatase 190 U/L (39-117); Anion Gap 10 (12-20); Aspartate Amino Transferase 14 U/L (5-37); Bilirubin Total 0.2 mg/dL (0.0-1.0); Blood Urea Nitrogen 12 mg/dL (9-16); Calcium 8.5 mg/dL (8.4-10.2); Carbon Dioxide 32 mmol/L (22-29); Chloride 103 mmol/L (96-108); Creatinine Clr Calc Pharmacy 95.1; Estimated Glomerular Filt Rate > 60; Glucose Random 186 mg/dL (60-115); Magnesium 1.5 mg/dL (1.6-2.6); Phosphorus 2.6 mg/dL (2.7-4.5); Potassium 3.9 mmol/L (3.3-5.1); Sodium 141 mmol/L (135-145); Total Protein 6.4 g/dL (6.5-8.0)
[2024-10-31] MEDS: Pantoprazole Sodium 40 MG/10 ML VIAL IVPUSH ×2 (05:46→16:23)
[2024-10-31] MEDS: Magnesium Sulfate/H2O 2 GM/50 ML PIGGYBACK IV ×2 (06:02→19:36)
[2024-10-31] MEDS: Norepinephrine Bitartrate/D5W 8 MG/250 ML PLAST..BAG 40.22 MG IVCONT (07:15)
--- NOTE | 2024-10-31 09:06 | PM.CCPN ---
Subjective Subjective Date of Service: 10/31/24 Critical Care Time (minutes): 35 Comment: continues to be on levophed for vasopressor support, 0.36 this morning urine cultures positive gram negative rods hypoxic on oxymask 6litres Physical Exam Vital Signs: Vital Signs: Last Vital Signs Temp 99.1 F 10/31/24 08:00 Pulse 87 10/31/24 09:01 Resp 18 10/31/24 08:00 BP 87/51 L 10/31/24 09:01 Pulse Ox 90 L 10/31/24 08:00 O2 Del Method Oxymask 10/31/24 08:00 O2 Flow Rate 6 10/31/24 08:00 Oxygen Flow Rate 15 10/29/24 14:07 BMI result Body Mass Index 24.9 General: Patient is in acute distress, ill appearing and tired appearing Nutritional Appearance: well nourished and overweight Eyes: appearance normal, both eyes and all related structures; Alignment and Position: alignment normal and position normal Neck: No lymphadenopathy, no thyromegaly Resp: bilateral air entry equal, crackles heard in lung bases Cardio: Regular rate, regular rhythm; Heart sounds: S1 normal heart sound present and S2 normal heart sound present GI: soft, nontender, no guarding, no hepatosplenomegaly : bladder normal to inspection, bladder normal to palpation, no renal angle tenderness Skin: no rashes or lesions noted and elasticity normal Neuro: Confused, no focal deficits and moves all extremities Objective Data Labs 10/31/24 04:38 10/31/24 04:38 Labs: Laboratory Results - last 24 hr 10/30/24 10/30/24 10/30/24 13:29 16:42 21:28 WBC RBC Hgb Hct MCV MCH MCHC RDW Plt Count MPV Immature Gran % (Auto) Neut % (Auto) Lymph % (Auto) [place] % (Auto) Eos % (Auto) Baso % (Auto) Lymph # (Auto) [place] # (Auto) Eos # (Auto) Baso # (Auto) Abs Immat Gran (auto) Absolute Neuts (auto) Absolute Nucleated RBC Nucleated RBC % (auto) VBG pH VBG pCO2 VBG pO2 VBG HCO3 VBG O2 Saturation VBG Base Excess Sodium Potassium Chloride Carbon Dioxide Anion Gap BUN Creatinine Estim Creat Clear Calc Estimated GFR POC Glucose 131 H 116 H 143 H Random Glucose Calcium Phosphorus Magnesium Total Bilirubin AST ALT Alkaline Phosphatase Total Protein Albumin 10/30/24 10/31/24 10/31/24 23:34 04:38 04:39 WBC 13.9 H RBC 3.39 L Hgb 8.9 L Hct 30.5 L MCV 90.0 MCH 26.3 L MCHC 29.2 L RDW 16.3 H Plt Count 203 MPV 11.4 Immature Gran % (Auto) 0.6 H Neut % (Auto) 74.5 H Lymph % (Auto) 16.8 L [place] % (Auto) 5.5 Eos % (Auto) 2.3 Baso % (Auto) 0.3 Lymph # (Auto) 2.3 [place] # (Auto) 0.8 Eos # (Auto) 0.3 Baso # (Auto) 0.0 Abs Immat Gran (auto) 0.09 H Absolute Neuts (auto) 10.4 H Absolute Nucleated RBC 0.000 Nucleated RBC % (auto) 0.0 VBG pH VBG pCO2 VBG pO2 VBG HCO3 VBG O2 Saturation VBG Base Excess Sodium 141 Potassium 3.9 Chloride 103 Carbon Dioxide 32 H Anion Gap 10 L BUN 12 Creatinine 0.64 Estim Creat Clear Calc 95.1 Estimated GFR > 60 POC Glucose 162 H 174 H Random Glucose 186 H Calcium 8.5 Phosphorus 2.6 L Magnesium 1.5 L Total Bilirubin 0.2 AST 14 ALT < 6 Alkaline Phosphatase 190 H Total Protein 6.4 L Albumin 2.7 L 10/31/24 04:43 WBC RBC Hgb Hct MCV MCH MCHC RDW Plt Count MPV Immature Gran % (Auto) Neut % (Auto) Lymph % (Auto) [place] % (Auto) Eos % (Auto) Baso % (Auto) Lymph # (Auto) [place] # (Auto) Eos # (Auto) Baso # (Auto) Abs Immat Gran (auto) Absolute Neuts (auto) Absolute Nucleated RBC Nucleated RBC % (auto) VBG pH 7.34 VBG pCO2 64 VBG pO2 46 VBG HCO3 35 H VBG O2 Saturation 72.0 VBG Base Excess 7.7 Sodium Potassium Chloride Carbon Dioxide Anion Gap BUN Creatinine Estim Creat Clear Calc Estimated GFR POC Glucose Random Glucose Calcium Phosphorus Magnesium Total Bilirubin AST ALT Alkaline Phosphatase Total Protein Albumin Microbiology Microbiology Results: Microbiology 10/29/24 Unknown Urine Catheterized - Kelly Catheter Urine Culture - Preliminary Gram negative oswald 10/29/24 15:29 Blood - Venous Blood Culture - Preliminary No growth after 24 hours. 10/29/24 14:42 Blood - Venous Blood Culture - Preliminary No growth after 24 hours. Progress Note: A&P Assessment and plan (1) Acute on chronic hypoxic respiratory failure: Status: Acute (2) Metabolic encephalopathy: Status: Acute (3) Septic shock: Status: Acute (4) Sepsis due to urinary tract infection: Status: Acute (5) UTI (urinary tract infection): Status: Acute Plan Neuro: Acute encephalopathy possibly due to metabolic encephalopathy from urinary tract infection Avoid any sedatives, no focal deficits Close neurological status monitoring in the ICU every hour Cardiac: Septic Shock: Possibly secondary to urinary tract infection On Levophed support. Patient has very frequent PVCs with Levophed so we will switch him to phenylephrine. If needed we will add vasopressin as 2nd vasopressor support In bedside echo showed dilated RV, slightly depressed LV systolic function. Chest x-ray after fluids yesterday showed bilateral small pleural effusion so he was given dose of Lasix with adequate response Paroxysmal atrial fibrillation: Currently rate controlled, we will withhold any rate control medications due to shock Could not take apixaban as he is NPO, switch to therapeutic Lovenox for anticoagulation Respiratory: Acute hypoxemic respiratory failure due to idiopathic pulmonary fibrosis and heart failure Currently on OxyMask at 6 liters/minute Crackles are possibly secondary to idiopathic pulmonary fibrosis. Lasix as needed if volume overload GI: Failed swallow evaluation, we will keep him NPO Renal: Normal renal function We will closely monitor I's and O's Avoid nephrotoxic medications Heme: Chronic anemia, closely monitor H&H, transfuse for hemoglobin less than 7 grams/deciliter Endocrine: Blood sugars under control Sliding scale insulin as needed Infectious disease: Urine cultures positive for Gram-negative rods Lactate down from 2.1-1.8 Continue meropenem for antibiotic coverage Musculoskeletal: Decubitus ulcer prevention protocol Lines: Peripheral Prophylaxis: Lovenox, pantoprazole Quality Stroke Does the patient have a stroke diagnosis?: No VTE Prior VTE?: No VTE Risk Level:: Medical - moderate - high VTE Device Contraindication: Treatment Not Indicated VTE Drug Contraindication: N/A - Med Ordered
[2024-10-31] MEDS: Furosemide 40 MG/4 ML VIAL IVPUSH ×2 (09:49→21:16)
[2024-10-31] MEDS: Enoxaparin Sodium 80 MG/0.8 ML SYRINGE 70 MG SUBCUT ×2 (09:49→21:15)
[2024-10-31 10:13] LABS: INTERNATIONAL NORM RATIO 1.1 (0.9-1.1); Prothrombin Time 12.6 SEC (10.9-12.4)
[2024-10-31 10:16] LABS: Partial Thromboplastin Time 34.1 SEC (26.0-36.8)
[2024-10-31 11:17] LABS: Glucose, Whole Blood 176 mg/dL (60-115)
--- NOTE | 2024-10-31 11:55 | PC.NURSE ---
Addendum entered by Jevon Hilton RN 10/31/24 13:49: Patient usually on eliquis at home for paroxys afib - NPO now - Dr Redd ordered lovenox until patient can take PO. Original Note: Shift eval - assumed care at 0700. Patient alert, oriented x3, but confused to location/situation at times. Increased O2 to 8 liters oxymask r/t O2sat dropping to 80's frequently. Dusky skin color, dyspnea with any activity. Dr Redd aware. RT aware as well and at bedside. Agitated with care -2 max assist with any repositioning. New foam dressings applied to coccyx area. Abigail wound RN consulted and assessed patient. Pictures taken. 9 am Rounds - Patient BP managed with levophed (see MAR) - plan to add adjunct pressor if levo reaches 0.5 mcg/kg/min. Patient NPO - failed swallow eval overnight. Speech and hearing consulted - failed for their eval - plan to keep NPO pending speech and hearing reeval tomorrow. @ approx 1200 - Increasing PVCs, couplets, afib/aflutter (has noted history of). Provider made aware of ectopy - order to change pressor to high concentration phenylephrine now. Pharmacy notified to bring drip.
[2024-10-31] MEDS: Phenylephrine HCL 100 MG in 0.9 % Sodium Chloride 250 ML 7.03 MG IVCONT (12:47)
[2024-10-31] MEDS: Insulin Lispro 100 UNIT/ML 3 ML VIAL SUBCUT ×3 (13:10→23:43)
[2024-10-31] MEDS: Vasopressin 20 UNIT/100 ML INFUS..BTL 12 UNIT IVCONT ×2 (14:40→20:14)
[2024-10-31 14:52] LABS: ABG HCO3 35 mmol/L (22-26); ABG pCO2 74 mmHg (32-45); ABG pH 7.28 (7.35-7.45); ABG pO2 79 mmHg (83-108)
--- NOTE | 2024-10-31 15:15 | PC.NURSE ---
Addendum entered by Britta Beebe RN 10/31/24 18:43: Assumed care of patient 15:00 Per MD plan for intubation and sedation. Pt failed Bipap trial, SaO2 84-86%, low volumes, unable to pull off mask if needed due to mental status change. 15:49 4mg versed given 15:50 20 mg Etomidate given 16:01 100 mg succ given Neosynephrine gtt increased to max rate of 6 for low blood pressures. Levophed gtt started @0.1 per MD. Precedex gtt started for continuous sedation Pt intubated 15:54, ETT 7.5 24 @ lip. Placement confirmed by colorimetry and CXR Per provider plan to remove TLC right femoral and place new TLC IJ. A-line required for low blood pressures. MD updated son via phone. 16:31 Time out performed. New TLC right IJ inserted with sterile technique. 16:50 time out performed. New A-line left femoral placed. Pt turned and repsitoned, new linens and samantha pad placed. Pt clean and dry, new Gilbert clothing. CXR confimed placement of right IJ TLC okay to use per MD. TLC right femoral removed. New MDPI and purulent area noted to right groin. see Skin Photo added to chart. MD notified. New order for Vancomycin IV abx. 18:35 Pt had 36 beat VtachMD notified. New order for Amiodarone 150 mg IV. this information communicated in RN to RN report Original Note: Persistent Hypotension & Respiratory decompensation: Approx 1440 patient resp effort increased, appeared fatigued, dusky skin - reported not feeling well, responding to questions. BP not maintaining with rapid increase of phenylephrine drip. Dr Redd and RT came to bedside - provider ordered to add vasopressin - administered per NOV. Bipap attempted - started 07/05, 75% - not tolerating, 02sat mid 80's. Plan to intubate per Dr Redd. Report given to Britta LUCIANO at approx 1500 - taking over care.
--- NOTE | 2024-10-31 15:22 | MHC.CM.PN ---
Pt transferred to ICU for pressor support: on high flow O2 as well. ATB for PNA: Pt had been a LTC resident of [facility]: son interested in other facilities: referrals made: Pt remains critical at this time - CM to follow and will update LTC referrals on 11/01.
[2024-10-31] MEDS: Etomidate 20 MG/10 ML VIAL IVPUSH (15:50)
--- NOTE | 2024-10-31 15:50 | HO.WOUND ---
Wound Consult: Initial 79yr old?male admitted to [facility] [place] on 10/29/24 - See progress notes and H&P for detailed history.? Wound consult placed for Buttock and Back.? Patient currently agreeable to assessment and photo documentation.? Incontinence care provided for bowel incontinence. He reports he is aware of the wound to his sacrum buttock area - he reports they use barrier cream to treat the area and it was resolving last he knew. Assessment detailed below. Left Sacrum Etiology: ??Resurfacing - Stage 2 Pressure Injury Present on Admission Wound Bed: red maroon resolving partial thickness tissue loss Drainage / Odor: None Edges: ? irregular Idalmis wound: ?MASD - No Induration, Fluctuance or Warmth noted Pain: Tenderness reported Goals of Treatment: ? Barrier cream and off load pressure right Sacrum Etiology: ??Deep Tissue Injury Present on Admission Wound Bed: red maroon intact nonblanchable tissue Drainage / Odor: None Edges: ? irregular Idalmis wound: ?MASD - No Induration, Fluctuance or Warmth noted Pain: Tenderness reported Goals of Treatment: ? foam dressing and off load pressure Right Back - Irregular skin pigmentation - not consistent with pressure - remain intact - recommend continue with foam dressing to protect from friction. Bilateral Groin / Skin folds - MASD Intertrigo (Moisture Associated Skin Damage - base of skin fold open tissue noted) - Recommend barrier cream to protect from moisture and friction. Recommendations: 1. Turn and Reposition every 2 hours and as needed for patient comfort.? Use pillows or wedges to support off loading positions. 2. Off Load all bony prominences with use of pillows and heel boots if needed.? Apply Preventative foams where needed. ? 3. Monitor for incontinence and moisture control, use barrier creams when needed for prevention and treatment. 4. Provide adequate and supplemental nutrition.? 5. Continue low air loss mattress. 6. When applicable maintain blood glucose levels per Providers order. 7. Left Sacrum - Off Load Pressure with Q2 hr turns and use of pillows - Cleanse with PH balance spray or wipes, pat dry. ?Apply thin layer of Triad to sacrum and buttock - only pat and dab no scrub and rub when soiling occurs. Reapply thin layer PRN after each episode of incontinence. 8. Right Back and Right Sacrum - Apply Skin prep allow to dry. Apply foam dressing peel back and assess Q shift and Change every 5 days and PRN. 9. Groin - Cleanse with Ph balances wipes, pat dry. Apply Barrier cream to groin twice daily and prn for incontinence. Re-consult wound care Nurse for wound deterioration or wound changes.
[2024-10-31 15:54] LABS: Hemoglobin 9.6 g/dl (14.0-18.0); Mean Corpuscular HGB Conc 28.2 g/dl (31.0-36.0); Mean Corpuscular Hemoglobin 25.9 pg (27.0-33.0); Mean Corpuscular Volume 91.9 fL (80.0-98.0); Mean Platelet Volume 10.8 fL (9.4-12.4); NRBC Pct Auto 0.1 /100WBC (0.0-0.2); Platelet Count 232 X10*3/uL (160-400); White Blood Count 13.5 X10*3/uL (4.8-10.8)
[2024-10-31] MEDS: dexmedeTOMIDidine HCL/NS 400 MCG/100 ML INFUS..BTL 22.53 MCG IVCONT ×2 (16:01→19:36)
[2024-10-31] MEDS: Succinylcholine Chloride 200 MG/10 ML VIAL 100 MG IVPUSH (16:01)
[2024-10-31] MEDS: Norepinephrine Bitartrate/NS 32 MG/250 ML PLAST..BAG 4.22 MG IVCONT (16:01)
[2024-10-31 16:15] LABS: Alanine Aminotransferase < 6 U/L (0-40); Albumin Level 2.9 g/dL (3.5-5.0); Anion Gap 10 (12-20); Aspartate Amino Transferase 15 U/L (5-37); Bilirubin Total 0.2 mg/dL (0.0-1.0); Blood Urea Nitrogen 12 mg/dL (9-16); Calcium 8.7 mg/dL (8.4-10.2); Carbon Dioxide 32 mmol/L (22-29); Chloride 104 mmol/L (96-108); Creatinine Clr Calc Pharmacy 92.5; Estimated Glomerular Filt Rate > 60; Glucose Random 163 mg/dL (60-115); Potassium 4.3 mmol/L (3.3-5.1); Sodium 142 mmol/L (135-145); Total Protein 6.9 g/dL (6.5-8.0)
[2024-10-31] MEDS: 0.9 % Sodium Chloride Flush 3 ML SYRINGE IVFLUSH ×2 (16:22→21:17)
--- NOTE | 2024-10-31 17:01 | W.PM.CCHP ---
Procedures Date of Service Date of Service: 10/31/24 Arterial Line Consent: Emergent-no informed consent obtained Sterile Technique Used: Yes Time out performed: Yes Size (Gauge): 20 Technique used: direct puncture technique Post-Procedure: line sutured into place and dry sterile dressing placed Patient tolerated procedure: well and no complications Complications: none Site: left and femoral
--- NOTE | 2024-10-31 17:02 | W.PM.CCHP ---
Procedures Date of Service Date of Service: 10/31/24 Arterial Line Size (Gauge): 20 Central Line Placement Right IJ: Consent for Procedure: Emergent-no informed consent obtained Sterile Technique Used: Yes Patient placed on monitor/pulse ox: Yes prep: mask, gown and gloves Central line prep: Chlorhexidine scrub Ultrasound used for placement: Yes Central line lumen inserted: triple Post procedure: sutured in place, good blood return, all ports aspirated, flushed, capped and sterile dressing applied Post procedure x-ray: tip of catheter in good position and no pneumothorax seen Patient tolerated procedure: well and no complications Complications: none
[2024-10-31] MEDS: Phenylephrine HCL 100 MG in 0.9 % Sodium Chloride 250 ML 84.33 MG IVCONT ×2 (17:03→19:36)
[2024-10-31 17:22] LABS: Glucose, Whole Blood 184 mg/dL (60-115)
[2024-10-31 17:26] LABS: Alkaline Phosphatase 197 U/L (39-117)
--- NOTE | 2024-10-31 17:40 | PM.CCN ---
Critical Care Event Note Summary Date of Service: 10/31/24 Code activated: No Narrative: This case had a high probability of a clinically significant, sudden, or life threatening deterioration of this patient's condition which required my full and direct attention, intervention and personal management. Critical Care Time (minutes): 35 Comment: Patient had progressive worsening in his overall condition with increased pressor requirement maximized on 2 vasopressor support including phenylephrine vasopressin when he had increase in his breathing efforts and becoming more drowsy. ABG done showed pCO2 of 72 for which he was placed on a BiPAP but he continued to be poorly responsive and we had to intubate the patient and placed on ventilator support. Post intubation his hypotension further worsened, on 3 vasopressor support currently so an emergent arterial line and central line has also been placed. Femoral central line has been removed. Updated his critical condition to his son Isael Perales.
[2024-10-31] MEDS: vancomycin HCL 1,500 MG in 0.9 % Sodium Chloride 500 ML 333.33 MG IV (18:22)
[2024-10-31] MEDS: Amiodarone/Dextrose 150 MG/100 ML PLAST..BAG 600 MG IV (18:40)
--- NOTE | 2024-10-31 19:18 | HO.SKINPHOTO ---
Location: right groin Category: MDPI Seen upon removal of TLC right femoral. aware, new orders for Vanco IV abx given. sterile occlusive dsg applied.
--- NOTE | 2024-10-31 19:49 | MHC.SLORD ---
Speech Language Pathology Order Status: Per EMR, patient has been intubated and placed on ventilator support. MEDICAL OFFICE SUPERVISOR f/u deferred pending extubation.
[2024-10-31] MEDS: Albumin Human 25 % 100 ML 133.33 ML IV ×4 (20:29→23:27)
[2024-10-31 20:46] LABS: Alanine Aminotransferase < 6 U/L (0-40); Albumin Level 2.6 g/dL (3.5-5.0); Alkaline Phosphatase 192 U/L (39-117); Anion Gap 13 (12-20); Aspartate Amino Transferase 25 U/L (5-37); Bilirubin Total 0.3 mg/dL (0.0-1.0); Blood Urea Nitrogen 13 mg/dL (9-16); Calcium 8.2 mg/dL (8.4-10.2); Carbon Dioxide 30 mmol/L (22-29); Chloride 102 mmol/L (96-108); Creatinine Clr Calc Pharmacy 100.8; Estimated Glomerular Filt Rate > 60; Glucose Random 218 mg/dL (60-115); Potassium 4.2 mmol/L (3.3-5.1); Sodium 141 mmol/L (135-145); Total Protein 6.3 g/dL (6.5-8.0)
[2024-10-31 22:04] LABS: Magnesium 1.8 mg/dL (1.6-2.6); Phosphorus 2.4 mg/dL (2.7-4.5)
[2024-10-31] MEDS: dexmedeTOMIDidine HCL/NS 400 MCG/100 ML INFUS..BTL 33.79 MCG IVCONT (22:31)
[2024-10-31] MEDS: Acetaminophen 325 MG TABLET 975 MG PO (22:45)
[2024-10-31] MEDS: Phenylephrine HCL 100 MG in 0.9 % Sodium Chloride 250 ML 77.31 MG IVCONT (22:57)
[2024-10-31 23:39] LABS: Glucose, Whole Blood 191 mg/dL (60-115)
[2024-11-01] VITALS (55 sets, daily range): BP systolic 97–133; BP diastolic 49–73; PULSE 54–83; RESP 12–24; TEMP 34.8–38.9; O2SAT 94–100; BMI 33.4
[2024-11-01] MEDS: dexmedeTOMIDidine HCL/NS 400 MCG/100 ML INFUS..BTL 33.79 MCG IVCONT ×3 (01:29→22:26)
[2024-11-01] MEDS: Meropenem 1 GM VIAL IVPUSH ×3 (02:59→17:39)
[2024-11-01] MEDS: Phenylephrine HCL 100 MG in 0.9 % Sodium Chloride 250 ML 63.25 MG IVCONT (03:17)
[2024-11-01] MEDS: Vasopressin 20 UNIT/100 ML INFUS..BTL 12 UNIT IVCONT ×3 (04:12→20:16)
[2024-11-01 05:03] LABS: MANUAL DIFF FLAG NO
[2024-11-01 05:08] LABS: Basophils Absolute Auto 0.1 X10*3/uL (0.0-0.2); Basophils Percent Auto 0.4 % (0-2); Eosinophils Absolute Auto 0.1 X10*3/uL (0.0-0.4); Eosinophils Percent Auto 0.5 % (0-4); Hematocrit 29.8 % (42.0-52.0); Hemoglobin 8.6 g/dl (14.0-18.0); Imm Gran Abs Auto 0.17 X10*3/uL (0.00-0.03); Imm Gran Pct Auto 1.2 % (0.0-0.4); Lymphocytes Absolute Auto 4.4 X10*3/uL (1.2-4.9); Lymphocytes Percent Auto 31.2 % (20-40); Mean Corpuscular HGB Conc 28.9 g/dl (31.0-36.0); Mean Corpuscular Hemoglobin 25.1 pg (27.0-33.0); Mean Corpuscular Volume 87.1 fL (80.0-98.0); Monocytes Percent Auto 6.8 % (2-11); NRBC Pct Auto 0.8 /100WBC (0.0-0.2); Neutrophils Absolute Auto 8.5 x10*3/uL (2.0-8.3); Neutrophils Percent Auto 59.9 % (45-73); Platelet Count 163 X10*3/uL (160-400); Red Blood Count 3.42 X10*6/uL (4.60-5.80); White Blood Count 14.2 X10*3/uL (4.8-10.8)
[2024-11-01] MEDS: dexmedeTOMIDidine HCL/NS 400 MCG/100 ML INFUS..BTL 24.78 MCG IVCONT ×2 (05:08→11:56)
[2024-11-01 05:26] LABS: Albumin Level 3.6 g/dL (3.5-5.0); Alkaline Phosphatase 205 U/L (39-117); Anion Gap 15 (12-20); Aspartate Amino Transferase 2715 U/L (5-37); Blood Urea Nitrogen 16 mg/dL (9-16); Calcium 8.1 mg/dL (8.4-10.2); Carbon Dioxide 23 mmol/L (22-29); Chloride 105 mmol/L (96-108); Creatinine Clr Calc Pharmacy 97.9; Estimated Glomerular Filt Rate > 60; Glucose Random 166 mg/dL (60-115); Magnesium 2.2 mg/dL (1.6-2.6); Phosphorus 2.6 mg/dL (2.7-4.5); Potassium 4.1 mmol/L (3.3-5.1); Sodium 139 mmol/L (135-145); Total Protein 6.3 g/dL (6.5-8.0)
[2024-11-01 05:42] LABS: Alanine Aminotransferase 1215 U/L (0-40)
[2024-11-01] MEDS: Insulin Lispro 100 UNIT/ML 3 ML VIAL SUBCUT ×2 (06:05→17:53)
[2024-11-01] MEDS: Pantoprazole Sodium 40 MG/10 ML VIAL IVPUSH ×2 (06:05→15:54)
[2024-11-01] MEDS: fentaNYL citrate/PF 100 MCG/2 ML VIAL IVPUSH (06:28)
[2024-11-01 06:32] LABS: VBG Base Excess 4.5 mmol/L; VBG HCO3 30 mmol/L (22-26); VBG pCO2 52 mmHg; VBG pH 7.37 (7.32-7.43); VBG pO2 48 mmHg
[2024-11-01 06:46] LABS: Venous Blood Gas Refer to POC result
--- NOTE | 2024-11-01 07:50 | PC.NURSE ---
Assumed care of this patient at 19:00. Patient remains intubated and sedated. On Precedex. Patient was observed w/ nonpurposeful movement of extremities x4 spontaneously with PA at the bedside with this communications writer. Precedex was titrated to max dose per PA Tee verbal order with +effect in the evening. Vent settings (rate, Fio2) were adjusted by the PA as well. RT made aware (please see vent settings assessments for details). Pt tolerated vent with sedation until this morning when RASS assessment required adjustment of precedex to max rate again per PA. Despite this increase, pt?s breathing was asynchronous with the vent and patient remained restless as per RASS. PA order for 1x fentanyl, given w/ +effect as evidenced by synchronous with the vent on reassessment and RASS improved to -3 and patient is calm. Patient on high dose phenylephrine and norepinephrine on assuming care. PA verbal order to continue phenylephrine infusion and reduce norepinephrine, with the goal to shut norepinephrine off. This was achieved in the evening and the PA was made aware. MAP maintained per MAR goal >65 on phenylephrine overnight. BPs on A-line, intact and functioning with adequate waveform.? Patient had a run of vtach prior to assuming care. Amiodarone 150 mg IV finished infusing in the evening. Tele strip of VTach was printed and reviewed with PA. Verbal orders given for Magnesium sulfate, administered. No further vtach overnight. Repeat labs were obtained per the provider in the evening. Albumin given x4, +effect as evidenced by reassessment labs this morning. Rhythm appeared to be sinus with PACs & PVCs overnight (not new), at times this morning some leads appearing to be without p-waves or flipped p-waves and regular QRS complexes that marched out, concerning junctional rhythm. Tele strip printed and reviewed with PA. No further orders advised. Patient febrile on assuming care, TMax 101.8 overnight. Ice packs applied and replaced frequently as well as prn tylenol given with little effect (via OG tube per PA okay). PA made aware. Temp improved/afebrile once able to obtain and place the patient on a cooling blanket. Safety measures in place. Q2Hr T+R. Please see shift assessments, tasks in worklist, and MAR for full details. Handoff report given at 07:00.
[2024-11-01] MEDS: Sodium,Potassium Phosphates POWD.PACK 2 PACKET PO (08:46)
[2024-11-01] MEDS: vancomycin HCL 1,000 MG in 0.9 % Sodium Chloride 250 ML 270 MG IV ×2 (08:47→20:20)
[2024-11-01] MEDS: Furosemide 40 MG/4 ML VIAL IVPUSH ×3 (08:47→20:24)
[2024-11-01] MEDS: Enoxaparin Sodium 80 MG/0.8 ML SYRINGE 70 MG SUBCUT ×2 (08:47→20:24)
[2024-11-01] MEDS: 0.9 % Sodium Chloride Flush 3 ML SYRINGE IVFLUSH ×3 (08:47→20:21)
[2024-11-01] MEDS: Chlorhexidine Gluc Oral Rinse 15 ML MOUTHWASH BUCCAL ×2 (08:47→20:23)
--- NOTE | 2024-11-01 09:09 | PM.CCPN ---
Subjective Subjective Date of Service: 11/01/24 Critical Care Time (minutes): 35 Comment: Critically ill on 2 vasopressor support and ventilator support. On Precedex for anxiolysis and sedation Physical Exam Vital Signs: Vital Signs: Last Vital Signs Temp 98.3 F 11/01/24 08:00 Pulse 61 11/01/24 09:00 Resp 23 H 11/01/24 09:00 BP 112/60 11/01/24 09:00 Pulse Ox 100 11/01/24 09:00 O2 Del Method Mechanical Ventil ation 11/01/24 09:00 O2 Flow Rate 10 10/31/24 14:00 FiO2 30 11/01/24 09:00 Oxygen Flow Rate 15 10/29/24 14:07 BMI result Body Mass Index 33.4 General: In acute distress, ill appearing and tired appearing Nutritional Appearance: well nourished and overweight Eyes: appearance normal, both eyes and all related structures; Alignment and Position: alignment normal and position normal Neck: No lymphadenopathy, no thyromegaly Resp: bilateral air entry equal, bibasilar crackles sounds present Cardio: Regular rate, regular rhythm; Heart sounds: S1 normal heart sound present and S2 normal heart sound present GI: soft, nontender, slightly distended, no guarding, no hepatosplenomegaly : bladder normal to inspection, bladder normal to palpation, no renal angle tenderness Skin: no rashes or lesions noted and elasticity normal Neuro: Sedated, no focal deficits moves all extremities Objective Data Labs 11/01/24 04:32 11/01/24 04:32 Labs: Laboratory Results - last 24 hr 10/31/24 10/31/24 10/31/24 09:42 11:10 14:48 WBC RBC Hgb Hct MCV MCH MCHC RDW Plt Count MPV Immature Gran % (Auto) Neut % (Auto) Lymph % (Auto) [place] % (Auto) Eos % (Auto) Baso % (Auto) Lymph # (Auto) [place] # (Auto) Eos # (Auto) Baso # (Auto) Abs Immat Gran (auto) Absolute Neuts (auto) Absolute Nucleated RBC Nucleated RBC % (auto) PT 12.6 H D INR 1.1 APTT 34.1 O2 Saturation 94.0 ABG pH at Pt Temp 7.28 L ABG pCO2 at Pt Temp 74 H* ABG pO2 at Pt Temp 79 L ABG HCO3 35 H ABG Base Excess (Actual) 7.0 VBG pH VBG pCO2 VBG pO2 VBG HCO3 VBG O2 Saturation VBG Base Excess Sodium Potassium Chloride Carbon Dioxide Anion Gap BUN Creatinine Estim Creat Clear Calc Estimated GFR POC Glucose 176 H Random Glucose Calcium Phosphorus Magnesium Total Bilirubin AST ALT Alkaline Phosphatase Total Protein Albumin 10/31/24 10/31/24 10/31/24 15:39 17:12 20:12 WBC 13.5 H RBC 3.70 L Hgb 9.6 L Hct 34.0 L MCV 91.9 MCH 25.9 L MCHC 28.2 L RDW 16.0 Plt Count 232 MPV 10.8 Immature Gran % (Auto) Neut % (Auto) Lymph % (Auto) [place] % (Auto) Eos % (Auto) Baso % (Auto) Lymph # (Auto) [place] # (Auto) Eos # (Auto) Baso # (Auto) Abs Immat Gran (auto) Absolute Neuts (auto) Absolute Nucleated RBC 0.020 H Nucleated RBC % (auto) 0.1 PT INR APTT O2 Saturation ABG pH at Pt Temp ABG pCO2 at Pt Temp ABG pO2 at Pt Temp ABG HCO3 ABG Base Excess (Actual) VBG pH VBG pCO2 VBG pO2 VBG HCO3 VBG O2 Saturation VBG Base Excess Sodium 142 141 Potassium 4.3 4.2 Chloride 104 102 Carbon Dioxide 32 H 30 H Anion Gap 10 L 13 BUN 12 13 Creatinine 0.73 0.67 Estim Creat Clear Calc 92.5 100.8 Estimated GFR > 60 > 60 POC Glucose 184 H Random Glucose 163 H 218 H Calcium 8.7 8.2 L Phosphorus 2.4 L Magnesium 1.8 Total Bilirubin 0.2 0.3 AST 15 25 ALT < 6 < 6 Alkaline Phosphatase 197 H 192 H Total Protein 6.9 6.3 L Albumin 2.9 L 2.6 L 10/31/24 11/01/24 11/01/24 23:24 04:32 06:29 WBC 14.2 H RBC 3.42 L Hgb 8.6 L Hct 29.8 L MCV 87.1 MCH 25.1 L MCHC 28.9 L RDW 16.0 Plt Count 163 D MPV 12.0 Immature Gran % (Auto) 1.2 H Neut % (Auto) 59.9 Lymph % (Auto) 31.2 [place] % (Auto) 6.8 Eos % (Auto) 0.5 Baso % (Auto) 0.4 Lymph # (Auto) 4.4 [place] # (Auto) 1.0 Eos # (Auto) 0.1 Baso # (Auto) 0.1 Abs Immat Gran (auto) 0.17 H Absolute Neuts (auto) 8.5 H Absolute Nucleated RBC 0.120 H Nucleated RBC % (auto) 0.8 H PT INR APTT O2 Saturation ABG pH at Pt Temp ABG pCO2 at Pt Temp ABG pO2 at Pt Temp ABG HCO3 ABG Base Excess (Actual) VBG pH 7.37 VBG pCO2 52 VBG pO2 48 VBG HCO3 30 H VBG O2 Saturation 70.0 VBG Base Excess 4.5 Sodium 139 Potassium 4.1 Chloride 105 Carbon Dioxide 23 Anion Gap 15 BUN 16 Creatinine 0.69 Estim Creat Clear Calc 97.9 Estimated GFR > 60 POC Glucose 191 H Random Glucose 166 H Calcium 8.1 L Phosphorus 2.6 L Magnesium 2.2 Total Bilirubin 1.0 AST 2715 H ALT 1215 H Alkaline Phosphatase 205 H Total Protein 6.3 L Albumin 3.6 Microbiology Microbiology Results: Microbiology 10/29/24 Unknown Urine Catheterized - Kelly Catheter Urine Culture - Final Escherichia coli 10/29/24 15:29 Blood - Venous Blood Culture - Preliminary No growth after 48 hours. 10/29/24 14:42 Blood - Venous Blood Culture - Preliminary No growth after 48 hours. Progress Note: A&P Assessment and plan (1) Acute encephalopathy: Status: Acute (2) Metabolic encephalopathy: Status: Acute (3) Acute on chronic hypoxic respiratory failure: Status: Acute (4) Septic shock: Status: Acute (5) UTI (urinary tract infection): Status: Acute Plan Neuro: Acute encephalopathy possibly due to metabolic encephalopathy from urinary tract infection on precedex for anxiolysis Close neurological status monitoring in the ICU every hour Cardiac: Septic Shock: Possibly secondary to urinary tract infection Levophed switched to phenylephrine due to frequent PVCs and non sustained VT. also on vasopressin as 2nd vasopressor support In bedside echo showed dilated RV, slightly depressed LV systolic function. Chest x-ray after fluids yesterday showed bilateral small pleural effusion so he was given dose of Lasix with adequate response Non sustained VT: received one dose of amiodarone for non sustained VT will avoid levophed will keep K above 4, Mg above 2; will repeat labs at noon Paroxysmal atrial fibrillation: Currently in sinus rhythm, we will withhold any rate control medications due to shock Could not take apixaban as he is NPO, switch to therapeutic Lovenox for anticoagulation Respiratory: Acute hypoxemic respiratory failure due to idiopathic pulmonary fibrosis and pulmonary edema from heart failure On ventilator support this morning PRVC mode FiO2 30%, peep 5, tidal volume 360, rate 20 Not a candidate for pressor support trials given refractory shock Ventilator management protocol, chlorhexidine mouthwash, head elevation, daily awakening trials GI: Congestive hepatopathy vs shock liver: LFT upto AST 2715 and ALT 1215 will diurese with lasix 40mg BID will start tube feeds Renal: Normal renal function We will closely monitor I's and O's Avoid nephrotoxic medications Heme: Chronic anemia, closely monitor H&H, transfuse for hemoglobin less than 7 grams/deciliter Endocrine: Blood sugars under control on sliding scale as needed Sliding scale insulin as needed Infectious disease: Urine cultures positive for ESBL Lactate down from 2.1-1.8 Continue meropenem for antibiotic coverage on vancomycin for skin suture site infection Musculoskeletal: Decubitus ulcer prevention protocol Lines: Peripheral Prophylaxis: Lovenox, pantoprazole Critical care time spent is about 50 minutes on ventilator management, changing ventilator setting, sedation management, close hemodynamic monitoring, managing patient's multiple vasopressor drips, review of labs, review of images at this time is excluding any procedural time Quality Stroke Does the patient have a stroke diagnosis?: No VTE Prior VTE?: No VTE Risk Level:: Medical - moderate - high VTE Device Contraindication: Treatment Not Indicated VTE Drug Contraindication: N/A - Med Ordered
[2024-11-01 09:51] LABS: INTERNATIONAL NORM RATIO 2.1 (0.9-1.1)
--- NOTE | 2024-11-01 11:16 | W.PM.CCHP ---
Procedures Date of Service Date of Service: 10/31/24 Arterial Line Size (Gauge): 20 Intubation Consent for Procedure: Emergent-no informed consent obtained Time out performed: Yes Sedative: etomidate Mg given: 20 Paralytic: succinylcholine Mg given: 100 Laryngoscope: fiber optic video scope ET tube size: 7.5 ET tube uncuffed: Yes Tube secured depth (cm): 22 Tube secured location: teeth Tube placement confirmation: visualized tube passing through cords, equal breath sounds bilaterally and no breath sounds over epigastrium Patient tolerated procedure: well and no complications Intubation complications: none
[2024-11-01] MEDS: Phenylephrine HCL 100 MG in 0.9 % Sodium Chloride 250 ML 56.22 MG IVCONT ×2 (11:59→17:22)
[2024-11-01 12:17] LABS: Glucose, Whole Blood 139 mg/dL (60-115)
--- NOTE | 2024-11-01 12:21 | MHC.CLN ---
PT IS INTUBATED AND SEDATED DISCUSSED AT ROUNDS WITH MD TO START TF TODAY PT WITH INCREASED NUTRITION NEEDS R/T PRESSURE INJURY RECOMMEND GLUCERNA AT MAX GOAL RATE 90ML/HR TO PROVIDE 2160KCALS (30KCALS/KG), 90G PROTEIN (1.2G/KG), 1842ML FREE WATER FROM FORMULA (25ML/KG) MONITOR TOLERANCE AND LYTES SEE ALSO FULL CLINICAL NUTRITION ASSESSMENT
--- NOTE | 2024-11-01 12:31 | P.CDIM_ITS ---
PROVIDER RESPONSE TEXT: To clarify, the appropriate diagnosis supported by the clinical indicators: Yes the UTI is related to / associated with / due to chronic pickering catheter QUERY TEXT: PHYSICIAN'S DOCUMENTATION REQUEST Date of Query: 11/01/2024 08:16 AM EST Patient Name: Kenji Perales Admit Date: 10/30/2024 Dear Nnamdi Redd MD, A review of the medical record indicates additional documentation may be needed. Please review below and update the documentation accordingly. Clinical Indicators: Progress note 10/30 - Chronic UTI's with chronic indwelling pickering catheter. Presented to ED due to altered mental status and purulent urine. UA+, pickering cath culture positive on 10/29 Escherichia coli. Started on vanco and zosyn initially then switched to meropenem. Please clarify the relationship between these conditions: UTI/Pickering Catheter Yes the UTI is related to / associated with / due to chronic pickering catheter No the UTI is not related to / associated with / due to the chronic pickering catheter Other (explain) Clinically unable to determine (explain) Thank you, Neda Owens, CCS, CDIS Use of terms such as suspected, likely, concern for, or probable (associated with a specific diagnosi s that is being evaluated, monitored, or treated as if it exists) are acceptable and can be coded in the inpatient se tting, when documented at the time of discharge. Please use your independent medical judgment in providing your response. THIS QUERY IS PART OF THE PERMANENT MEDICAL RECORD
--- NOTE | 2024-11-01 12:31 | P.CDIM_ITS ---
PROVIDER RESPONSE TEXT: To clarify, the appropriate diagnosis supported by the clinical indicators: Other etiology of skin integrity QUERY TEXT: PHYSICIAN'S DOCUMENTATION REQUEST Date of Query: 11/01/2024 06:42 AM EST Patient Name: Kenji Perales Admit Date: 10/30/2024 Dear Nnamdi Redd MD, A review of the medical record indicates additional documentation may be needed. Please review below and update the documentation accordingly. Clinical Indicators: Wound care consultation note 10/31 - Stage 2 Pressure Injury left sacrum - Present on admission. Barrier cream and off load pressure. Based on the above, could you please provide further information regarding the ulcer/wound/injury: Pressure injury Stage 2 left sacrum possible, probable, suspected, etc. Other etiology of skin integrity Other (explain) Clinically unable to determine (explain) Thank you, Neda Owens, CCS, CDIS Use of terms such as suspected, likely, concern for, or probable (associated with a specific diagnosi s that is being evaluated, monitored, or treated as if it exists) are acceptable and can be coded in the inpatient se tting, when documented at the time of discharge. Please use your independent medical judgment in providing your response. THIS QUERY IS PART OF THE PERMANENT MEDICAL RECORD
--- NOTE | 2024-11-01 12:31 | P.CDIM_ITS ---
PROVIDER RESPONSE TEXT: To clarify, the appropriate diagnosis supported by the clinical indicators: Deep Tissue Injury right sacrum: suspected QUERY TEXT: PHYSICIAN'S DOCUMENTATION REQUEST Date of Query: 11/01/2024 06:45 AM EST Patient Name: Kenji Perales Admit Date: 10/30/2024 Dear Nnamdi Redd MD, A review of the medical record indicates additional documentation may be needed. Please review below and update the documentation accordingly. Clinical Indicators: Wound care consultation note dated 10/31 - Deep tissue Injury right Sacrum - Present on admission. Foam dressing and off load pressure. Based on the above, could you please provide further information regarding the ulcer/wound/injury: Deep Tissue Injury right sacrum possible, probable, suspected etc. Other etiology of skin integrity Other (explain) Clinically unable to determine (explain) Thank you, Neda Owens, CCS, CDIS Use of terms such as suspected, likely, concern for, or probable (associated with a specific diagnosi s that is being evaluated, monitored, or treated as if it exists) are acceptable and can be coded in the inpatient se tting, when documented at the time of discharge. Please use your independent medical judgment in providing your response. THIS QUERY IS PART OF THE PERMANENT MEDICAL RECORD
[2024-11-01 13:41] LABS: Albumin Level 3.3 g/dL (3.5-5.0); Anion Gap 18 (12-20); Bilirubin Total 0.9 mg/dL (0.0-1.0); Blood Urea Nitrogen 17 mg/dL (9-16); Calcium 8.1 mg/dL (8.4-10.2); Carbon Dioxide 23 mmol/L (22-29); Chloride 104 mmol/L (96-108); Creatinine Clr Calc Pharmacy 110.5; Estimated Glomerular Filt Rate > 60; Glucose Random 153 mg/dL (60-115); Potassium 3.9 mmol/L (3.3-5.1); Sodium 141 mmol/L (135-145); Total Protein 6.2 g/dL (6.5-8.0)
[2024-11-01 13:54] LABS: Alanine Aminotransferase 1990 U/L (0-40)
[2024-11-01 13:59] LABS: Aspartate Amino Transferase 4874 U/L (5-37)
[2024-11-01 14:10] LABS: Alkaline Phosphatase 208 U/L (39-117)
--- NOTE | 2024-11-01 14:24 | MHC.CM.PN ---
Pt required intubation last evening d/t worsening respiratory function. Pt also given a loading Amiodarone infusion, albumin and vasopressin. TF to start today. Pt originally from home with spouse: ? needing additional services. CM to follow
[2024-11-01] MEDS: dexmedeTOMIDidine HCL/NS 400 MCG/100 ML INFUS..BTL 15.77 MCG IVCONT (16:38)
--- NOTE | 2024-11-01 17:33 | HO.WOUND ---
Wound Consult: Initial 79yr old?male admitted to [facility] on 10/29/24 - See progress notes and H&P for detailed history.? Wound consult placed while on unit for Right Groin.? Photo reviewed and discussed with direct care nurse. Indwelling Central line was removed from the right groin and brazer crawler torch related pressure injury - Unstageable was noted under the plate of the central line catheter. Right Groin Etiology: ??Oncology Social Worker Related Pressure Injury - Unstageable Wound Bed: two sites with adherent yellow slough Drainage / Odor: None Edges: ? well defined Idalmis wound:Intact - No Induration, Fluctuance or Warmth noted per direct care nurse Goals of Treatment: ? Discontinue device and treat wound with Durafiber AG and occlusive dressing. Topical Recommendations: Right Groin: Cleanse with NS moist gauze, pat dry. Apply skin prep to periwound. Cover wound bed with Durafiber AG followed by dry gauze occlusive dressing. Change every other day. Given the area is with in his groin and skin fold monitor for saturation and change PRN. Details from previous assessment: Patient currently agreeable to assessment and photo documentation.? Incontinence care provided for bowel incontinence. He reports he is aware of the wound to his sacrum buttock area - he reports they use barrier cream to treat the area and it was resolving last he knew. Assessment detailed below. Left Sacrum Etiology: ??Resurfacing - Stage 2 Pressure Injury Present on Admission Wound Bed: red maroon resolving partial thickness tissue loss Drainage / Odor: None Edges: ? irregular Idalmis wound: ?MASD - No Induration, Fluctuance or Warmth noted Pain: Tenderness reported Goals of Treatment: ? Barrier cream and off load pressure right Sacrum Etiology: ??Deep Tissue Injury Present on Admission Wound Bed: red maroon intact nonblanchable tissue Drainage / Odor: None Edges: ? irregular Idalmis wound: ?MASD - No Induration, Fluctuance or Warmth noted Pain: Tenderness reported Goals of Treatment: ? foam dressing and off load pressure Right Back - Irregular skin pigmentation - not consistent with pressure - remain intact - recommend continue with foam dressing to protect from friction. Bilateral Groin / Skin folds - MASD Intertrigo (Moisture Associated Skin Damage - base of skin fold open tissue noted) - Recommend barrier cream to protect from moisture and friction. Recommendations: 1. Turn and Reposition every 2 hours and as needed for patient comfort.? Use pillows or wedges to support off loading positions. 2. Off Load all bony prominences with use of pillows and heel boots if needed.? Apply Preventative foams where needed. ? 3. Monitor for incontinence and moisture control, use barrier creams when needed for prevention and treatment. 4. Provide adequate and supplemental nutrition.? 5. Continue low air loss mattress. 6. When applicable maintain blood glucose levels per Providers order. 7. Left Sacrum - Off Load Pressure with Q2 hr turns and use of pillows - Cleanse with PH balance spray or wipes, pat dry. ?Apply thin layer of Triad to sacrum and buttock - only pat and dab no scrub and rub when soiling occurs. Reapply thin layer PRN after each episode of incontinence. 8. Right Back and Right Sacrum - Apply Skin prep allow to dry. Apply foam dressing peel back and assess Q shift and Change every 5 days and PRN. 9. Groin - Cleanse with Ph balances wipes, pat dry. Apply Barrier cream to groin twice daily and prn for incontinence. Re-consult wound care Nurse for wound deterioration or wound changes.
[2024-11-01] MEDS: Potassium Chloride/H20 20 MEQ/100 ML PIGGYBACK 100 MEQ IV (17:40)
[2024-11-01 17:55] LABS: Glucose, Whole Blood 153 mg/dL (60-115)
--- NOTE | 2024-11-01 19:45 | HO.SKINPHOTO ---
Location: left forehead Category: PI Stage: MDPI SaO2 probe adjusted to new location, site FREEZER OPERATOR
--- NOTE | 2024-11-01 19:50 | HO.SKINPHOTO ---
Location: update photo for back DTI Category: DTI Location: right posterior gluteal fold Category: maceration associated skin damage MASD Location: Anterior abdominal fold Category: MASD Location: update photo - coccyx Category: PI Stage: II
[2024-11-01] MEDS: Acetaminophen 325 MG TABLET 975 MG PO (20:23)
[2024-11-01] MEDS: Phenylephrine HCL 100 MG in 0.9 % Sodium Chloride 250 ML 49.2 MG IVCONT (22:30)
[2024-11-01 23:22] LABS: Glucose, Whole Blood 137 mg/dL (60-115)
[2024-11-02] VITALS (61 sets, daily range): BP systolic 100–126; BP diastolic 47–64; PULSE 50–82; RESP 12–24; TEMP 35–38.8; O2SAT 89–100; BMI 33.9
[2024-11-02] MEDS: dexmedeTOMIDidine HCL/NS 400 MCG/100 ML INFUS..BTL 33.79 MCG IVCONT ×3 (01:36→21:09)
[2024-11-02] MEDS: Meropenem 1 GM VIAL IVPUSH ×3 (02:22→18:27)
[2024-11-02] MEDS: Vasopressin 20 UNIT/100 ML INFUS..BTL 12 UNIT IVCONT ×3 (03:44→19:02)
[2024-11-02] MEDS: Phenylephrine HCL 100 MG in 0.9 % Sodium Chloride 250 ML 28.11 MG IVCONT (03:46)
[2024-11-02] MEDS: dexmedeTOMIDidine HCL/NS 400 MCG/100 ML INFUS..BTL 29.28 MCG IVCONT (03:59)
[2024-11-02 05:14] LABS: VBG Base Excess 7.3 mmol/L; VBG HCO3 29 mmol/L (22-26); VBG pCO2 34 mmHg; VBG pH 7.54 (7.32-7.43); VBG pO2 83 mmHg
[2024-11-02 06:04] LABS: MANUAL DIFF FLAG NO
[2024-11-02 06:10] LABS: Albumin Level 2.9 g/dL (3.5-5.0); Alkaline Phosphatase 206 U/L (39-117); Anion Gap 16 (12-20); Aspartate Amino Transferase 2236 U/L (5-37); Bilirubin Total 0.5 mg/dL (0.0-1.0); Blood Urea Nitrogen 19 mg/dL (9-16); Carbon Dioxide 24 mmol/L (22-29); Chloride 103 mmol/L (96-108); Creatinine Clr Calc Pharmacy 108.8; Estimated Glomerular Filt Rate > 60; Glucose Random 225 mg/dL (60-115); Magnesium 1.7 mg/dL (1.6-2.6); Potassium 2.7 mmol/L (3.3-5.1); Sodium 140 mmol/L (135-145); Total Protein 5.8 g/dL (6.5-8.0)
[2024-11-02 06:21] LABS: Basophils Absolute Auto 0.1 X10*3/uL (0.0-0.2); Basophils Percent Auto 0.4 % (0-2); Eosinophils Absolute Auto 0.2 X10*3/uL (0.0-0.4); Eosinophils Percent Auto 1.1 % (0-4); Hematocrit 28.1 % (42.0-52.0); Hemoglobin 8.8 g/dl (14.0-18.0); Imm Gran Abs Auto 0.12 X10*3/uL (0.00-0.03); Imm Gran Pct Auto 0.9 % (0.0-0.4); Lymphocytes Absolute Auto 3.2 X10*3/uL (1.2-4.9); Lymphocytes Percent Auto 23.8 % (20-40); Mean Corpuscular HGB Conc 31.3 g/dl (31.0-36.0); Mean Corpuscular Hemoglobin 25.4 pg (27.0-33.0); Mean Corpuscular Volume 81.2 fL (80.0-98.0); Mean Platelet Volume 11.9 fL (9.4-12.4); Monocytes Absolute Auto 0.5 X10*3/uL (0.1-1.2); Monocytes Percent Auto 3.8 % (2-11); NRBC Pct Auto 0.3 /100WBC (0.0-0.2); Neutrophils Absolute Auto 9.5 x10*3/uL (2.0-8.3); Platelet Count 128 X10*3/uL (160-400); Red Blood Count 3.46 X10*6/uL (4.60-5.80); Red Cell Distribution Width 15.9 % (11.0-16.0); White Blood Count 13.6 X10*3/uL (4.8-10.8)
[2024-11-02] MEDS: Potassium Chloride Packet 20 MEQ PACKET 40 MEQ PO (06:31)
[2024-11-02 06:32] LABS: Alanine Aminotransferase 1473 U/L (0-40)
[2024-11-02] MEDS: Potassium Chloride/H20 40 MEQ/100 ML PIGGYBACK 50 MEQ IV (06:33)
[2024-11-02] MEDS: Pantoprazole Sodium 40 MG/10 ML VIAL IVPUSH ×2 (06:37→15:57)
[2024-11-02] MEDS: Insulin Lispro 100 UNIT/ML 3 ML VIAL SUBCUT ×4 (06:38→23:20)
[2024-11-02 06:46] LABS: Venous Blood Gas Refer to POC result
--- NOTE | 2024-11-02 06:50 | HE.PHANOTE ---
VANCO DOSE ADJUSTMENT BASED ON SCR AND TROUGH OF 22 DOSE DECREASED TO 1500 Q 24H. NEXT LEVEL 11/04 @ 0800
--- NOTE | 2024-11-02 07:12 | PC.NURSE ---
Assumed care of patient at 19:00 in the evening. Pt febrile in the evening, not resolved with prn tylenol. CONNIE Brown made aware. Cooling blanket obtained and temp improved. Patient tolerating tube feeds as per order, advancing towards goal. No signs of intolerance. Q6HR POCs. Aspiration precautions in place. Patient with increasing bradycardia non-sustained with brief dips in upper 40's to low 50's. Tele reviewed, appearing to be junctional this morning. PA made aware. Electrolytes back this morning after system down time with low potassium. PA made aware, repletions ordered and given. Safety measures in place. Please see shift assessments, tasks, and MAR for full details.
--- NOTE | 2024-11-02 08:06 | MHC.CLN ---
F/U PT REMAINS INTUBATED AND SEDATED TF STARTED AND SLOWLY ADVANCING TO GOAL OF 90ML/HR NSG NOTES PT TOLERATING WELL PT WITH INCREASED NUTRITION NEEDS R/T PRESSURE INJURY PT TO RECEIVE GLUCERNA AT MAX GOAL RATE 90ML/HR TO PROVIDE 2160KCALS (30KCALS/KG), 90G PROTEIN (1.2G/KG), 1842ML FREE WATER FROM FORMULA (25ML/KG) MONITOR TOLERANCE AND LYTES CAN ADD 30ML PROSOURCE X1 PER DAY TO PROMOTE WOUND HEALING WHEN TF AT GOAL RATE
[2024-11-02] MEDS: Chlorhexidine Gluc Oral Rinse 15 ML MOUTHWASH BUCCAL ×2 (08:38→21:11)
[2024-11-02] MEDS: 0.9 % Sodium Chloride Flush 3 ML SYRINGE IVFLUSH ×3 (08:38→21:13)
[2024-11-02] MEDS: Furosemide 40 MG/4 ML VIAL IVPUSH ×2 (08:38→21:12)
[2024-11-02] MEDS: Enoxaparin Sodium 80 MG/0.8 ML SYRINGE 70 MG SUBCUT ×2 (08:38→21:12)
--- NOTE | 2024-11-02 09:06 | P.PNCC_ITS ---
Subjective Subjective Date of Service: 11/02/24 Critical Care Time (minutes): 35 Physical Exam 2 Vital Signs: Vital Signs: Last Vital Signs Temp 97.3 F 11/02/24 08:00 Pulse 82 11/02/24 08:31 Resp 20 11/02/24 08:31 BP 111/60 11/02/24 08:31 Pulse Ox 94 11/02/24 08:31 O2 Del Method Mechanical Ventil ation 11/02/24 08:00 O2 Flow Rate 10 10/31/24 14:00 FiO2 30 11/02/24 08:34 Oxygen Flow Rate 15 10/29/24 14:07 BMI result Body Mass Index 33.9 Objective Data Labs 11/02/24 05:00 11/02/24 05:00 Labs: Laboratory Results - last 24 hr 11/01/24 11/01/24 11/01/24 09:02 11:27 12:56 WBC RBC Hgb Hct MCV MCH MCHC RDW Plt Count MPV Immature Gran % (Auto) Neut % (Auto) Lymph % (Auto) [place] % (Auto) Eos % (Auto) Baso % (Auto) Lymph # (Auto) [place] # (Auto) Eos # (Auto) Baso # (Auto) Abs Immat Gran (auto) Absolute Neuts (auto) Absolute Nucleated RBC Nucleated RBC % (auto) PT 25.0 H D INR 2.1 H VBG pH VBG pCO2 VBG pO2 VBG HCO3 VBG O2 Saturation VBG Base Excess Sodium 141 Potassium 3.9 Chloride 104 Carbon Dioxide 23 Anion Gap 18 BUN 17 H Creatinine 0.65 Estim Creat Clear Calc 110.5 Estimated GFR > 60 POC Glucose 139 H Random Glucose 153 H Calcium 8.1 L Phosphorus Magnesium 2.0 Total Bilirubin 0.9 AST 4874 H ALT 1990 H Alkaline Phosphatase 208 H Total Protein 6.2 L Albumin 3.3 L Random Vancomycin 11/01/24 11/01/24 11/02/24 17:48 23:12 05:00 WBC 13.6 H RBC 3.46 L Hgb 8.8 L Hct 28.1 L MCV 81.2 D MCH 25.4 L MCHC 31.3 RDW 15.9 Plt Count 128 L MPV 11.9 Immature Gran % (Auto) 0.9 H Neut % (Auto) 70.0 Lymph % (Auto) 23.8 [place] % (Auto) 3.8 Eos % (Auto) 1.1 Baso % (Auto) 0.4 Lymph # (Auto) 3.2 [place] # (Auto) 0.5 Eos # (Auto) 0.2 Baso # (Auto) 0.1 Abs Immat Gran (auto) 0.12 H Absolute Neuts (auto) 9.5 H Absolute Nucleated RBC 0.040 H Nucleated RBC % (auto) 0.3 H PT INR VBG pH VBG pCO2 VBG pO2 VBG HCO3 VBG O2 Saturation VBG Base Excess Sodium 140 Potassium 2.7 L* D Chloride 103 Carbon Dioxide 24 Anion Gap 16 BUN 19 H Creatinine 0.66 Estim Creat Clear Calc 108.8 Estimated GFR > 60 POC Glucose 153 H 137 H Random Glucose 225 H Calcium 8.0 L Phosphorus 2.0 L Magnesium 1.7 Total Bilirubin 0.5 AST 2236 H ALT 1473 H Alkaline Phosphatase 206 H Total Protein 5.8 L Albumin 2.9 L Random Vancomycin 22.0 H 11/02/24 05:10 WBC RBC Hgb Hct MCV MCH MCHC RDW Plt Count MPV Immature Gran % (Auto) Neut % (Auto) Lymph % (Auto) [place] % (Auto) Eos % (Auto) Baso % (Auto) Lymph # (Auto) [place] # (Auto) Eos # (Auto) Baso # (Auto) Abs Immat Gran (auto) Absolute Neuts (auto) Absolute Nucleated RBC Nucleated RBC % (auto) PT INR VBG pH 7.54 H VBG pCO2 34 VBG pO2 83 VBG HCO3 29 H VBG O2 Saturation 98.0 VBG Base Excess 7.3 Sodium Potassium Chloride Carbon Dioxide Anion Gap BUN Creatinine Estim Creat Clear Calc Estimated GFR POC Glucose Random Glucose Calcium Phosphorus Magnesium Total Bilirubin AST ALT Alkaline Phosphatase Total Protein Albumin Random Vancomycin Microbiology Microbiology Results: Microbiology 10/29/24 Unknown Urine Catheterized - Kelly Catheter Urine Culture - Final Escherichia coli 10/29/24 15:29 Blood - Venous Blood Culture - Preliminary No growth after 48 hours. 10/29/24 14:42 Blood - Venous Blood Culture - Preliminary No growth after 48 hours. Progress Note: A&P Assessment and plan (1) Metabolic alkalosis: Status: Acute (2) Chronic indwelling Kelly catheter: Status: Acute (3) UTI (urinary tract infection): Status: Acute (4) Sepsis due to urinary tract infection: Status: Acute (5) Septic shock: Status: Acute (6) Metabolic encephalopathy: Status: Acute (7) Acute encephalopathy: Status: Acute (8) Acute on chronic hypoxic respiratory failure: Status: Acute Plan Neuro: Acute encephalopathy possibly due to metabolic encephalopathy from urinary tract infection on precedex for anxiolysis Close neurological status monitoring in the ICU every hour Cardiac: Septic Shock: Possibly secondary to urinary tract infection Levophed switched to phenylephrine due to frequent PVCs and non sustained VT. also on vasopressin as 2nd vasopressor support In bedside echo showed dilated RV, slightly depressed LV systolic function. Chest x-ray after fluids yesterday showed bilateral small pleural effusion so he was given dose of Lasix with adequate response Non sustained VT: received one dose of amiodarone for non sustained VT will avoid levophed, on phenylephrine will keep K above 4, Mg above 2; will repeat labs at noon Paroxysmal atrial fibrillation: Currently in sinus rhythm, we will withhold any rate control medications due to shock Could not take apixaban as he is NPO, switched to therapeutic Lovenox for anticoagulation Respiratory: Acute hypoxemic respiratory failure due to idiopathic pulmonary fibrosis and pulmonary edema from heart failure On ventilator support this morning PRVC mode FiO2 30%, peep 5, tidal volume 360, rate 20 Not a candidate for pressor support trials given refractory shock, possibly will try tomorrow Ventilator management protocol, chlorhexidine mouthwash, head elevation, daily awakening trials GI: Congestive hepatopathy vs shock liver: LFT improving AST 2239 and ALT 1473 will continue diurese with lasix 40mg BID continue tube feeds Renal: Normal renal function We will closely monitor I's and O's Avoid nephrotoxic medications Heme: Chronic anemia, closely monitor H&H, transfuse for hemoglobin less than 7 grams/deciliter hemoglobin slowly decreasing due to critical care illness and blood draws Endocrine: Blood sugars under control on sliding scale as needed Sliding scale insulin as needed Infectious disease: Urine cultures positive for ESBL Lactate down from 2.1-1.8 Continue meropenem for antibiotic coverage on vancomycin for skin suture site infection Musculoskeletal: Decubitus ulcer prevention protocol Lines: Peripheral Prophylaxis: Lovenox, pantoprazole Critical care time spent is about 40 minutes on ventilator management, changing ventilator setting, sedation management, close hemodynamic monitoring, managing patient's multiple vasopressor drips, managing episodes of arrythmias, reviewing labs and images Quality Stroke Does the patient have a stroke diagnosis?: No VTE Prior VTE?: No VTE Risk Level:: Medical - moderate - high VTE Device Contraindication: Treatment Not Indicated VTE Drug Contraindication: N/A - Med Ordered
[2024-11-02] MEDS: vancomycin HCL 1,500 MG in 0.9 % Sodium Chloride 500 ML 333.33 MG IV (09:14)
[2024-11-02] MEDS: Sodium,Potassium Phosphates POWD.PACK 2 PACKET PO ×2 (09:14→14:12)
[2024-11-02] MEDS: dexmedeTOMIDidine HCL/NS 400 MCG/100 ML INFUS..BTL 15.77 MCG IVCONT (10:20)
[2024-11-02 11:10] LABS: Glucose, Whole Blood 168 mg/dL (60-115)
[2024-11-02 12:14] LABS: Glucose, Whole Blood 180 mg/dL (60-115)
[2024-11-02] MEDS: Phenylephrine HCL 100 MG in 0.9 % Sodium Chloride 250 ML 21.08 MG IVCONT (12:35)
[2024-11-02 12:59] LABS: Anion Gap 12 (12-20); Blood Urea Nitrogen 19 mg/dL (9-16); Calcium 7.9 mg/dL (8.4-10.2); Carbon Dioxide 30 mmol/L (22-29); Chloride 103 mmol/L (96-108); Creatinine Clr Calc Pharmacy 120.5; Estimated Glomerular Filt Rate > 60; Glucose Random 186 mg/dL (60-115); Magnesium 1.5 mg/dL (1.6-2.6); Potassium 3.1 mmol/L (3.3-5.1); Sodium 142 mmol/L (135-145)
--- NOTE | 2024-11-02 14:48 | MHC.CM.PN ---
Pt continues on ventilatory support: FiO2 at 30%. Pt from [facility] ( [facility] ) and may return when medically stable. Other SNF sites have been referred to per family request. CM to follow for finalization of d/c planning needs. CM to follow
[2024-11-02] MEDS: dexmedeTOMIDidine HCL/NS 400 MCG/100 ML INFUS..BTL 24.78 MCG IVCONT (14:53)
[2024-11-02 17:29] LABS: Glucose, Whole Blood 197 mg/dL (60-115)
[2024-11-02] MEDS: Acetaminophen 325 MG TABLET 975 MG PO (21:08)
[2024-11-02 23:23] LABS: Glucose, Whole Blood 214 mg/dL (60-115)
[2024-11-03] VITALS (55 sets, daily range): BP systolic 86–140; BP diastolic 48–98; PULSE 44–79; RESP 12–23; TEMP 34.6–39.1; O2SAT 95–99; BMI 33.6
[2024-11-03] MEDS: dexmedeTOMIDidine HCL/NS 400 MCG/100 ML INFUS..BTL 33.79 MCG IVCONT ×7 (00:02→21:08)
[2024-11-03] MEDS: Phenylephrine HCL 100 MG in 0.9 % Sodium Chloride 250 ML 21.08 MG IVCONT (00:43)
[2024-11-03] MEDS: Vasopressin 20 UNIT/100 ML INFUS..BTL 12 UNIT IVCONT ×3 (02:17→17:56)
[2024-11-03] MEDS: Meropenem 1 GM VIAL IVPUSH ×3 (03:09→18:16)
[2024-11-03] MEDS: Acetaminophen 325 MG TABLET 975 MG PO (04:34)
[2024-11-03 05:39] LABS: MANUAL DIFF FLAG NO
[2024-11-03 05:44] LABS: Basophils Absolute Auto 0.1 X10*3/uL (0.0-0.2); Basophils Percent Auto 0.3 % (0-2); Eosinophils Absolute Auto 0.2 X10*3/uL (0.0-0.4); Eosinophils Percent Auto 0.9 % (0-4); Hematocrit 28.1 % (42.0-52.0); Hemoglobin 8.7 g/dl (14.0-18.0); Imm Gran Abs Auto 0.12 X10*3/uL (0.00-0.03); Imm Gran Pct Auto 0.7 % (0.0-0.4); Lymphocytes Absolute Auto 3.1 X10*3/uL (1.2-4.9); Lymphocytes Percent Auto 19.3 % (20-40); Mean Corpuscular Hemoglobin 25.6 pg (27.0-33.0); Mean Corpuscular Volume 82.6 fL (80.0-98.0); Mean Platelet Volume 11.8 fL (9.4-12.4); Monocytes Absolute Auto 0.6 X10*3/uL (0.1-1.2); Monocytes Percent Auto 3.5 % (2-11); NRBC Pct Auto 0.1 /100WBC (0.0-0.2); Neutrophils Absolute Auto 12.1 x10*3/uL (2.0-8.3); Neutrophils Percent Auto 75.3 % (45-73); Platelet Count 113 X10*3/uL (160-400); Red Cell Distribution Width 16.5 % (11.0-16.0); White Blood Count 16.1 X10*3/uL (4.8-10.8)
[2024-11-03 05:45] LABS: Venous Blood Gas Refer to POC result
[2024-11-03 05:46] LABS: VBG Base Excess 10.6 mmol/L; VBG HCO3 36 mmol/L (22-26); VBG pCO2 52 mmHg; VBG pH 7.44 (7.32-7.43); VBG pO2 42 mmHg
[2024-11-03 06:08] LABS: Alanine Aminotransferase 906 U/L (0-40); Albumin Level 2.7 g/dL (3.5-5.0); Alkaline Phosphatase 211 U/L (39-117); Anion Gap 13 (12-20); Aspartate Amino Transferase 677 U/L (5-37); Bilirubin Total 0.4 mg/dL (0.0-1.0); Blood Urea Nitrogen 22 mg/dL (9-16); Calcium 7.8 mg/dL (8.4-10.2); Carbon Dioxide 29 mmol/L (22-29); Chloride 100 mmol/L (96-108); Creatinine Clr Calc Pharmacy 114.3; Estimated Glomerular Filt Rate > 60; Glucose Random 245 mg/dL (60-115); Magnesium 1.5 mg/dL (1.6-2.6); Potassium 3.2 mmol/L (3.3-5.1); Sodium 139 mmol/L (135-145)
[2024-11-03] MEDS: Pantoprazole Sodium 40 MG/10 ML VIAL IVPUSH ×2 (06:11→15:33)
[2024-11-03 06:12] LABS: Glucose, Whole Blood 213 mg/dL (60-115)
[2024-11-03] MEDS: Insulin Lispro 100 UNIT/ML 3 ML VIAL SUBCUT ×3 (06:12→18:16)
[2024-11-03] MEDS: Potassium Chloride/H20 40 MEQ/100 ML PIGGYBACK 50 MEQ IV (07:41)
--- NOTE | 2024-11-03 07:52 | PC.NURSE ---
Addendum entered by Braden Crump RN 11/03/24 19:52: no notable complications or incidents since last note... RN to RN report given on Kenji at approximately 1850 on 11/03/24. care transferred to night-shift RN Addendum entered by Braden Crump RN 11/03/24 11:35: patient awakening trial successful, pressure support trial unsuccessful on PSV 12/5. tychypneic to high 40s, desaturation in oxygen, restless, pulling tidal volmes less than 300. ACVC settings resumed see noon vent assessment Addendum entered by Braden Crump RN 11/03/24 11:08: patient alerts spontaneously, visibly restless, attempting to pull ETT, restraints applied per order, see seperate restraint charting , responsive to redirection. respiratory called at approx. 11:00 to adjust vent back to settings to PSV now that patient is more alert. Addendum entered by Braden Crump RN 11/03/24 11:03: per MD patient SAT and PSV trial. sedation paused per NOV. at approx 0900 PSV initiated by respiratory, patient became dyspneic and tachypneic placed back on ACVC setting. will attempt PSV trial again today when patient more alert. Original Note: Assumed care of patient @0700 on 11/03/24. patient becoming bradycardic down to 45bpm, and fluctuating between sinus dieudonne and junctional rhythm. MD made aware, no new orders, hanging electrolytes per NOV.
[2024-11-03] MEDS: Chlorhexidine Gluc Oral Rinse 15 ML MOUTHWASH BUCCAL ×2 (08:13→21:10)
[2024-11-03] MEDS: 0.9 % Sodium Chloride Flush 3 ML SYRINGE IVFLUSH ×3 (08:13→21:17)
--- NOTE | 2024-11-03 09:06 | PM.CCPN ---
Subjective Subjective Date of Service: 11/03/24 Critical Care Time (minutes): 35 Comment: Remains on ventilator support Blood pressures dropped so had to restart vasopressin, also on phenylephrine On Precedex for anxiolysis Physical Exam Vital Signs: Vital Signs: Last Vital Signs Temp 98.7 F 11/03/24 08:00 Pulse 47 L 11/03/24 08:29 Resp 16 11/03/24 08:27 BP 111/62 11/03/24 08:29 Pulse Ox 98 11/03/24 08:27 O2 Del Method Mechanical Ventil ation 11/03/24 08:00 O2 Flow Rate 10 10/31/24 14:00 FiO2 30 11/03/24 08:00 Oxygen Flow Rate 15 10/29/24 14:07 BMI result Body Mass Index 33.6 General: Elderly male in acute distress, ill appearing and tired appearing Nutritional Appearance: well nourished and overweight Eyes: appearance normal, both eyes and all related structures; Alignment and Position: alignment normal and position normal Neck: No lymphadenopathy, no thyromegaly Resp: bilateral air entry equal, occasional added sounds present Cardio: Regular rate, regular rhythm; Heart sounds: S1 normal heart sound present and S2 normal heart sound present GI: soft, nontender, no guarding, no hepatosplenomegaly : bladder normal to inspection, bladder normal to palpation, no renal angle tenderness Skin: no rashes or lesions noted and elasticity normal Neuro: No focal deficits, moves all extremities Objective Data Labs 11/03/24 05:25 11/03/24 12:28 Labs: Laboratory Results - last 24 hr 11/02/24 11/02/24 11/02/24 11:08 12:03 12:34 WBC RBC Hgb Hct MCV MCH MCHC RDW Plt Count MPV Immature Gran % (Auto) Neut % (Auto) Lymph % (Auto) [place] % (Auto) Eos % (Auto) Baso % (Auto) Lymph # (Auto) [place] # (Auto) Eos # (Auto) Baso # (Auto) Abs Immat Gran (auto) Absolute Neuts (auto) Absolute Nucleated RBC Nucleated RBC % (auto) VBG pH VBG pCO2 VBG pO2 VBG HCO3 VBG O2 Saturation VBG Base Excess Sodium 142 Potassium 3.1 L Chloride 103 Carbon Dioxide 30 H Anion Gap 12 BUN 19 H Creatinine 0.60 Estim Creat Clear Calc 120.5 Estimated GFR > 60 POC Glucose 168 H 180 H Random Glucose 186 H Calcium 7.9 L Phosphorus Magnesium 1.5 L Total Bilirubin AST ALT Alkaline Phosphatase Total Protein Albumin 11/02/24 11/02/24 11/03/24 17:26 23:17 05:25 WBC 16.1 H RBC 3.40 L Hgb 8.7 L Hct 28.1 L MCV 82.6 MCH 25.6 L MCHC 31.0 RDW 16.5 H Plt Count 113 L MPV 11.8 Immature Gran % (Auto) 0.7 H Neut % (Auto) 75.3 H Lymph % (Auto) 19.3 L [place] % (Auto) 3.5 Eos % (Auto) 0.9 Baso % (Auto) 0.3 Lymph # (Auto) 3.1 [place] # (Auto) 0.6 Eos # (Auto) 0.2 Baso # (Auto) 0.1 Abs Immat Gran (auto) 0.12 H Absolute Neuts (auto) 12.1 H Absolute Nucleated RBC 0.020 H Nucleated RBC % (auto) 0.1 VBG pH VBG pCO2 VBG pO2 VBG HCO3 VBG O2 Saturation VBG Base Excess Sodium 139 Potassium 3.2 L Chloride 100 Carbon Dioxide 29 Anion Gap 13 BUN 22 H Creatinine Cancelled Estim Creat Clear Calc Estimated GFR POC Glucose 197 H 214 H Random Glucose Calcium Phosphorus Magnesium Total Bilirubin AST ALT Alkaline Phosphatase Total Protein Albumin 11/03/24 11/03/24 11/03/24 05:25 05:25 05:25 WBC RBC Hgb Hct MCV MCH MCHC RDW Plt Count MPV Immature Gran % (Auto) Neut % (Auto) Lymph % (Auto) [place] % (Auto) Eos % (Auto) Baso % (Auto) Lymph # (Auto) [place] # (Auto) Eos # (Auto) Baso # (Auto) Abs Immat Gran (auto) Absolute Neuts (auto) Absolute Nucleated RBC Nucleated RBC % (auto) VBG pH VBG pCO2 VBG pO2 VBG HCO3 VBG O2 Saturation VBG Base Excess Sodium Potassium Chloride Carbon Dioxide Anion Gap BUN Creatinine 0.63 Estim Creat Clear Calc Cancelled 114.3 Estimated GFR Cancelled > 60 POC Glucose Random Glucose 245 H Calcium 7.8 L Phosphorus 2.0 L Magnesium 1.5 L Total Bilirubin 0.4 AST 677 H ALT 906 H Alkaline Phosphatase 211 H Total Protein 6.0 L Albumin 2.7 L 11/03/24 11/03/24 05:38 06:07 WBC RBC Hgb Hct MCV MCH MCHC RDW Plt Count MPV Immature Gran % (Auto) Neut % (Auto) Lymph % (Auto) [place] % (Auto) Eos % (Auto) Baso % (Auto) Lymph # (Auto) [place] # (Auto) Eos # (Auto) Baso # (Auto) Abs Immat Gran (auto) Absolute Neuts (auto) Absolute Nucleated RBC Nucleated RBC % (auto) VBG pH 7.44 H VBG pCO2 52 VBG pO2 42 VBG HCO3 36 H VBG O2 Saturation 63.0 VBG Base Excess 10.6 Sodium Potassium Chloride Carbon Dioxide Anion Gap BUN Creatinine Estim Creat Clear Calc Estimated GFR POC Glucose 213 H Random Glucose Calcium Phosphorus Magnesium Total Bilirubin AST ALT Alkaline Phosphatase Total Protein Albumin Microbiology Microbiology Results: Microbiology 11/02/24 09:16 Groin, Right Gram Stain - Final 10/29/24 Unknown Urine Catheterized - Kelly Catheter Urine Culture - Final Escherichia coli 10/29/24 15:29 Blood - Venous Blood Culture - Preliminary No growth after 48 hours. 10/29/24 14:42 Blood - Venous Blood Culture - Preliminary No growth after 48 hours. Progress Note: A&P Assessment and plan (1) Metabolic alkalosis: Status: Acute (2) Metabolic encephalopathy: Status: Acute (3) Acute encephalopathy: Status: Acute (4) Acute on chronic hypoxic respiratory failure: Status: Acute (5) Skin necrosis: Status: Acute (6) Septic shock: Status: Acute (7) UTI (urinary tract infection): Status: Acute (8) Chronic indwelling Kelly catheter: Status: Acute Plan Neuro: Acute encephalopathy possibly due to metabolic encephalopathy from urinary tract infection on precedex for anxiolysis, will taper as tolerated for weaning trials on the vent; following commands Close neurological status monitoring in the ICU every hour Cardiac: Septic Shock: Possibly secondary to urinary tract infection Levophed switched to phenylephrine due to frequent PVCs and non sustained VT. also on vasopressin as 2nd vasopressor support In bedside echo showed dilated RV, slightly depressed LV systolic function. Chest x-ray after fluids yesterday showed bilateral small pleural effusion so he was given dose of Lasix with adequate response Non sustained VT: received one dose of amiodarone for non sustained VT will avoid levophed, on phenylephrine will keep K above 4, Mg above 2; will repeat labs at noon Paroxysmal atrial fibrillation: Could not take apixaban as he is NPO, switched to therapeutic Lovenox for anticoagulation currently in and out of juncitonal rhythm, will inessa watch Respiratory: Acute hypoxemic respiratory failure due to idiopathic pulmonary fibrosis and pulmonary edema from heart failure On ventilator support this morning PRVC mode FiO2 30%, peep 5, tidal volume 360, rate 20, will place on pressure support for weaning trials; if he does well we will extubate him. Ventilator management protocol, chlorhexidine mouthwash, head elevation, daily awakening trials GI: Congestive hepatopathy vs shock liver: LFT improving AST 900 and ALT 600 will continue diurese with lasix 40mg BID continue tube feeds Renal: Normal renal function We will closely monitor I's and O's Avoid nephrotoxic medications Acute hypokalemia: will replace as per protocol Acute hypophosphatemia: will replete as per protocol Heme: Chronic anemia, closely monitor H&H, transfuse for hemoglobin less than 7 grams/deciliter hemoglobin slowly decreasing due to critical care illness and blood draws Endocrine: Blood sugars under control on sliding scale as needed Sliding scale insulin as needed Infectious disease: Urine cultures positive for ESBL, blood cultures negative Lactate down from 2.1-1.8 Continue meropenem for antibiotic coverage on vancomycin for skin suture site infection Musculoskeletal: Decubitus ulcer prevention protocol stage 2 left sacrum, DTI on right sacrum Lines: Peripheral Prophylaxis: Lovenox, pantoprazole Update: Patient was tried on pressor support trials in the morning and again in the afternoon both the time he failed due to tachypnea and low minute ventilation Critical care time spent is about 35 minutes on ventilator management, changing ventilator setting, weaning trials and pressure support trials, sedation management, close hemodynamic monitoring, managing patient's multiple vasopressor drips, managing episodes of arrythmias, reviewing labs and images Quality Stroke Does the patient have a stroke diagnosis?: No VTE Prior VTE?: No VTE Risk Level:: Medical - moderate - high VTE Device Contraindication: Treatment Not Indicated VTE Drug Contraindication: N/A - Med Ordered
[2024-11-03] MEDS: Furosemide 40 MG/4 ML VIAL IVPUSH ×2 (10:11→21:11)
[2024-11-03] MEDS: Enoxaparin Sodium 80 MG/0.8 ML SYRINGE 70 MG SUBCUT ×2 (10:12→21:11)
[2024-11-03] MEDS: vancomycin HCL 1,500 MG in 0.9 % Sodium Chloride 500 ML 333 MG IV (10:34)
--- NOTE | 2024-11-03 10:39 | HO.WOUNDCONS ---
History of Present Illness Data of Consult Service Date: 11/02/24 Requesting physician: Nnamdi Redd Primary Care Provider: Yoselyn Ventura MD [facility] Reason for consult: right groin wound The pt is a 79 year old male who is admitted to the ICU from the ER for sepsis due to urinary tract infection - intubated on pressors sedated . In the ER a right femoral line was placed and secured with sutures. The pt was then resuscitated with iv fluids and pressors. In the ICU the line was switched to central line in neck and the femoral catheter removed. It was noted that there was skin breakdown at the site where the sutures were placed to secure the catheter. Wound care nurse evaluated the patient and recommended xeroform and alginate and dressing to protect the area. Also to try to keep groin area dry from associated moisture. Pt wound is doing better and has some improvement in pressor support now. Review of Systems Review of Systems: Yes Unobtainable due to mental condition [facility] Medical History Obstructive sleep apnea Generalized anxiety disorder Adjustment disorder Non-insulin dependent type 2 diabetes mellitus Dysphagia Heart failure with reduced ejection fraction Persistent atrial fibrillation Idiopathic pulmonary fibrosis Prostate cancer Chronic indwelling Kelly catheter Social History Household Members: Other Household Members Other:: roomate Housing: Half-Way Do you presently have visiting nurse or other home services: No Alcohol intake: never Patient Tobacco Use Status: Never used Tobacco e-Cigarette/Vaping Use: Never Used Second Hand Smoke Exposure: No Advance Directives Date on File: 10/14/24 service: No Meds Allergies Allergy/AdvReac Type Severity Reaction Status Date / Time latex Allergy Rash Verified 10/29/24 14:18 Active Medications: Current Medications Acetaminophen (Acetaminophen 325 Mg Tablet) 975 mg PO Q6H PRN PRN Reason: Pain, Mild 1-3,fever,headache Last Admin: 11/03/24 04:34 Dose: 975 mg Albuterol/Ipratropium (Albuterol/Iprat 2.5/0.5mg 3 Ml Ampul.Neb) 3 ml INHALE RQ6H WHILE AWAKE PRN PRN Reason: Shortness of Breath Apixaban (Apixaban 5 Mg Tablet) 5 mg PO BID TINA Last Admin: 10/31/24 08:57 Dose: Not Given Chlorhexidine Gluconate (Chlorhexidine Gluc Oral Rinse 15 Ml Mouthwash) 15 ml BUCCAL BID [facility] Last Admin: 11/03/24 08:13 Dose: 15 ml Dextrose (Dextrose 50 % 25 Gm/50 Ml Syringe) 25 gm IVPUSH Q15M PRN; Protocol PRN Reason: per Hypoglycemia Standing Ord. Enoxaparin Sodium (Enoxaparin Sodium 80 Mg/0.8 Ml Syringe) 70 mg SUBCUT Q12H [facility] Last Admin: 11/03/24 10:12 Dose: 70 mg Furosemide (Furosemide 40 Mg/4 Ml Vial) 40 mg IVPUSH Q12H TINA; Protocol Last Admin: 11/03/24 10:11 Dose: 40 mg Glucose (Glucose Gel 15 Gm Gel..Gram.) 15 gm PO Q15M PRN; Protocol PRN Reason: per Hypoglycemia Standing Ord. Phenylephrine HCl 100 mg/ (Sodium Chloride) 260 mls @ 0 mls/hr IVCONT .Q0M TINA; Protocol Last Titration: 11/03/24 09:20 Dose: 1 mcg/kg/min, 14.06 mls/hr Vasopressin (Vasostrict) 20 unit in 100 mls @ 12 mls/hr IVCONT .Q8H20M TINA; Protocol Last Admin: 11/03/24 02:17 Dose: 0.04 unit/min, 12 mls/hr Dexmedetomidine HCl (Precedex) 400 mcg in 100 mls @ 0 mls/hr IVCONT .Q0M TINA; Protocol Last Titration: 11/03/24 08:27 Dose: 0 mcg/kg/hr, 0 mls/hr Vancomycin HCl 1,500 mg/ (Sodium Chloride) 500 mls @ 333.333 mls/hr IV Q24H [facility] Last Admin: 11/03/24 10:34 Dose: 333 mls/hr Insulin Human Lispro (Insulin Lispro 100 Unit/Ml 3 Ml Vial) 0 unit SUBCUT Q6H TINA; Protocol Last Admin: 11/03/24 06:12 Dose: 4 unit Meropenem (Meropenem 1 Gm Vial) 1 gm IVPUSH Q8H TINA Last Admin: 11/03/24 10:36 Dose: 1 gm Ondansetron HCl (Ondansetron Hcl 4 Mg/2 Ml Vial) 4 mg IVPUSH Q8H PRN PRN Reason: Nausea and Vomiting Pantoprazole Sodium (Pantoprazole Sodium 40 Mg/10 Ml Vial) 40 mg IVPUSH BID@0630,1630 [facility] Last Admin: 11/03/24 06:11 Dose: 40 mg Pharmacy Consult (Consult Rx Vancomycin Dosing) 1 each MISCELLANE DAILY PRN PRN Reason: Consult order Sodium Chloride (0.9 % Sodium Chloride Flush 3 Ml Syringe) 3 ml IVFLUSH QSHIFT [facility] Last Admin: 11/03/24 08:13 Dose: 3 ml Home Medications ?Medication ?Instructions ?Recorded ?Confirmed ?Last Taken ?Type apixaban 5 mg tablet (Eliquis) 5 mg PO BID 10/13/24 10/30/24 Unknown History clotrimazole 1 % topical cream 1 appl topical DAILY PRN Rash 10/13/24 10/30/24 Unknown History doxazosin 4 mg tablet 4 mg PO BID 10/13/24 10/30/24 Unknown History fluticasone 100 mcg-salmeterol 50 1 inh inhalation BID 10/13/24 10/30/24 Unknown History mcg/dose blistr powdr for inhalation (Advair Diskus) fluticasone propionate 50 2 spray intranasal DAILY 10/13/24 10/30/24 Unknown History mcg/actuation nasal spray,suspension folic acid 1 mg tablet 1 mg PO DAILY 10/13/24 10/30/24 Unknown History furosemide 40 mg tablet 40 mg PO BID 10/13/24 10/30/24 Unknown History ipratropium 0.5 mg-albuterol 3 mg 3 ml inhalation Q4H PRN Shortness 10/13/24 10/30/24 Unknown History (2.5 mg base)/3 mL nebulization Of Breath Or Wheezing soln metformin 500 mg tablet 500 mg PO BID 10/13/24 10/30/24 Unknown History omeprazole 20 mg capsule,delayed 20 mg PO DAILY 10/13/24 10/30/24 Unknown History release potassium chloride 20 mEq 20 meq PO BID 10/13/24 10/30/24 Unknown History tablet,extended release(part/cryst) prednisone 10 mg tablet 10 mg PO DAILY 10/13/24 10/30/24 Unknown History tamsulosin 0.4 mg capsule 0.4 mg PO BEDTIME 10/13/24 10/30/24 Unknown History acetaminophen 500 mg tablet 1,000 mg PO BID 10/30/24 10/30/24 Unknown History prednisone 20 mg tablet 20 mg PO DAILY 10/30/24 10/30/24 Unknown History Physical Exam Vital Signs and Narrative: Vital Signs: Last Vital Signs Temp 98.7 F 11/03/24 08:00 Pulse 50 11/03/24 09:20 Resp 14 11/03/24 09:00 BP 124/65 11/03/24 10:11 Pulse Ox 98 11/03/24 09:00 O2 Del Method Mechanical Ventil ation 11/03/24 09:00 O2 Flow Rate 10 10/31/24 14:00 FiO2 30 11/03/24 09:00 Oxygen Flow Rate 15 10/29/24 14:07 BMI result Body Mass Index 33.6 Skin: Other: right groin area with two spots of skin breakdown with superficial yellow slough and one with a little deeper aspect into the subcutaneous fate where the anchoring sutures from central line catheter was secured. no evidence of infection. one site .8cm and the other 1cm Results Labs 11/03/24 05:25 11/03/24 05:25 Labs: Laboratory Results - last 24 hr 11/02/24 11/02/24 11/02/24 11:08 12:03 12:34 MCV MCH MCHC RDW Plt Count MPV Immature Gran % (Auto) Neut % (Auto) Lymph % (Auto) [place] % (Auto) Eos % (Auto) Baso % (Auto) Lymph # (Auto) [place] # (Auto) Eos # (Auto) Baso # (Auto) Abs Immat Gran (auto) Absolute Neuts (auto) Absolute Nucleated RBC Nucleated RBC % (auto) VBG pH VBG pCO2 VBG pO2 VBG HCO3 VBG O2 Saturation VBG Base Excess Anion Gap 12 Estim Creat Clear Calc 120.5 Estimated GFR > 60 POC Glucose 168 H 180 H Random Glucose 186 H Calcium 7.9 L Phosphorus Magnesium 1.5 L Total Bilirubin AST ALT Alkaline Phosphatase Total Protein Albumin 11/02/24 11/02/24 11/03/24 17:26 23:17 05:25 MCV 82.6 MCH 25.6 L MCHC 31.0 RDW 16.5 H Plt Count 113 L MPV 11.8 Immature Gran % (Auto) 0.7 H Neut % (Auto) 75.3 H Lymph % (Auto) 19.3 L [place] % (Auto) 3.5 Eos % (Auto) 0.9 Baso % (Auto) 0.3 Lymph # (Auto) 3.1 [place] # (Auto) 0.6 Eos # (Auto) 0.2 Baso # (Auto) 0.1 Abs Immat Gran (auto) 0.12 H Absolute Neuts (auto) 12.1 H Absolute Nucleated RBC 0.020 H Nucleated RBC % (auto) 0.1 VBG pH VBG pCO2 VBG pO2 VBG HCO3 VBG O2 Saturation VBG Base Excess Anion Gap 13 Estim Creat Clear Calc Cancelled Estimated GFR POC Glucose 197 H 214 H Random Glucose Calcium Phosphorus Magnesium Total Bilirubin AST ALT Alkaline Phosphatase Total Protein Albumin 11/03/24 11/03/24 11/03/24 05:25 05:25 05:38 MCV MCH MCHC RDW Plt Count MPV Immature Gran % (Auto) Neut % (Auto) Lymph % (Auto) [place] % (Auto) Eos % (Auto) Baso % (Auto) Lymph # (Auto) [place] # (Auto) Eos # (Auto) Baso # (Auto) Abs Immat Gran (auto) Absolute Neuts (auto) Absolute Nucleated RBC Nucleated RBC % (auto) VBG pH 7.44 H VBG pCO2 52 VBG pO2 42 VBG HCO3 36 H VBG O2 Saturation 63.0 VBG Base Excess 10.6 Anion Gap Estim Creat Clear Calc 114.3 Estimated GFR Cancelled > 60 POC Glucose Random Glucose 245 H Calcium 7.8 L Phosphorus 2.0 L Magnesium 1.5 L Total Bilirubin 0.4 AST 677 H ALT 906 H Alkaline Phosphatase 211 H Total Protein 6.0 L Albumin 2.7 L 11/03/24 06:07 MCV MCH MCHC RDW Plt Count MPV Immature Gran % (Auto) Neut % (Auto) Lymph % (Auto) [place] % (Auto) Eos % (Auto) Baso % (Auto) Lymph # (Auto) [place] # (Auto) Eos # (Auto) Baso # (Auto) Abs Immat Gran (auto) Absolute Neuts (auto) Absolute Nucleated RBC Nucleated RBC % (auto) VBG pH VBG pCO2 VBG pO2 VBG HCO3 VBG O2 Saturation VBG Base Excess Anion Gap Estim Creat Clear Calc Estimated GFR POC Glucose 213 H Random Glucose Calcium Phosphorus Magnesium Total Bilirubin AST ALT Alkaline Phosphatase Total Protein Albumin Assessment and Plan (1) Skin necrosis: Status: Acute Plan 79 year old male multiple med issues in ICU with septic shock treated with pressors and fluids initially via catheter in right groin now switched to the neck- skin breakdown in the groin where the catheter was anchored - due to skin necrosis from tension, edema, moisture and pressor support. agree with plan to change location and dressings as supported. Area should heal well with continued treatemetn of pt's underlying issues.
[2024-11-03 12:08] LABS: Glucose, Whole Blood 200 mg/dL (60-115)
[2024-11-03 12:57] LABS: Alanine Aminotransferase 804 U/L (0-40); Albumin Level 2.6 g/dL (3.5-5.0); Alkaline Phosphatase 197 U/L (39-117); Anion Gap 11 (12-20); Aspartate Amino Transferase 472 U/L (5-37); Bilirubin Total 0.4 mg/dL (0.0-1.0); Blood Urea Nitrogen 21 mg/dL (9-16); Calcium 7.6 mg/dL (8.4-10.2); Carbon Dioxide 30 mmol/L (22-29); Chloride 101 mmol/L (96-108); Creatinine Clr Calc Pharmacy 126.3; Estimated Glomerular Filt Rate > 60; Glucose Random 227 mg/dL (60-115); Phosphorus 1.9 mg/dL (2.7-4.5); Potassium 3.2 mmol/L (3.3-5.1); Sodium 139 mmol/L (135-145); Total Protein 5.8 g/dL (6.5-8.0)
--- NOTE | 2024-11-03 13:10 | MHC.CLN ---
F/U PT REMAINS INTUBATED AND SEDATED - NO PROPOFOL. RECEIVING TUBE FEEDING. DISCUSSED AT MD ROUNDS. CONTINUE CURRENT TUBE FEEDING. TOLERATING TUBE FEEDING AT MAX GOAL RATE, GLUCERNA AT 90 ML PER HOUR. TUBE FEEDING PROVIDES 2160KCALS (30KCALS/KG IBW), 90G PROTEIN (1.2G/KG IBW), 1842ML FREE WATER FROM FORMULA (25ML/KG IBW). MONITOR TOLERANCE AND LYTES. SKIN WITH DTI TO R SACRUM AND STAGE II TO L SACRUM. MONITOR SKIN INTEGRITY.
[2024-11-03 15:04] LABS: Glucose, Whole Blood 231 mg/dL (60-115)
[2024-11-03] MEDS: Phenylephrine HCL 100 MG in 0.9 % Sodium Chloride 250 ML 14.06 MG IVCONT (15:05)
[2024-11-03 23:50] LABS: Glucose, Whole Blood 209 mg/dL (60-115)
[2024-11-04] VITALS (61 sets, daily range): BP systolic 80–136; BP diastolic 38–78; PULSE 52–126; RESP 12–26; TEMP 35–39; O2SAT 90–100; BMI 32.6
[2024-11-04] MEDS: dexmedeTOMIDidine HCL/NS 400 MCG/100 ML INFUS..BTL 24.78 MCG IVCONT (00:15)
[2024-11-04] MEDS: Insulin Lispro 100 UNIT/ML 3 ML VIAL SUBCUT ×4 (00:18→23:14)
[2024-11-04 00:28] LABS: Glucose, Whole Blood 186 mg/dL (60-115)
[2024-11-04] MEDS: Meropenem 1 GM VIAL IVPUSH ×3 (03:18→18:35)
[2024-11-04] MEDS: dexmedeTOMIDidine HCL/NS 400 MCG/100 ML INFUS..BTL 33.79 MCG IVCONT ×2 (03:18→06:12)
[2024-11-04 04:34] LABS: ABG Base Excess 13.2 mmol/L; ABG HCO3 36 mmol/L (22-26); ABG pCO2 41 mmHg (32-45); ABG pH 7.55 (7.35-7.45); ABG pO2 127 mmHg (83-108)
[2024-11-04 04:36] LABS: ABG Refer to POC result
[2024-11-04 04:49] LABS: Basophils Percent Auto 0.3 % (0-2); Hemoglobin 9.2 g/dl (14.0-18.0); PLT CLUMP 1; SCAN SMEAR FLAG 1
[2024-11-04 04:51] LABS: Basophils Absolute Auto 0.1 X10*3/uL (0.0-0.2); Eosinophils Absolute Auto 0.4 X10*3/uL (0.0-0.4); Eosinophils Percent Auto 2.3 % (0-4); Hematocrit 29.4 % (42.0-52.0); Imm Gran Abs Auto 0.17 X10*3/uL (0.00-0.03); Imm Gran Pct Auto 1.1 % (0.0-0.4); Lymphocytes Absolute Auto 3.4 X10*3/uL (1.2-4.9); Lymphocytes Percent Auto 21.6 % (20-40); MANUAL DIFF FLAG SCAN; Mean Corpuscular HGB Conc 31.3 g/dl (31.0-36.0); Mean Corpuscular Hemoglobin 25.6 pg (27.0-33.0); Mean Corpuscular Volume 81.7 fL (80.0-98.0); Mean Platelet Volume 11.5 fL (9.4-12.4); Monocytes Absolute Auto 0.8 X10*3/uL (0.1-1.2); Monocytes Percent Auto 4.9 % (2-11); NRBC Pct Auto 0.1 /100WBC (0.0-0.2); Neutrophils Percent Auto 69.8 % (45-73); Red Cell Distribution Width 16.5 % (11.0-16.0)
[2024-11-04 04:54] LABS: Platelet Count 80 X10*3/uL (160-400); White Blood Count 15.7 X10*3/uL (4.8-10.8)
[2024-11-04 05:15] LABS: Alkaline Phosphatase 216 U/L (39-117)
[2024-11-04 05:18] LABS: Alanine Aminotransferase 603 U/L (0-40); Albumin Level 2.5 g/dL (3.5-5.0); Anion Gap 12 (12-20); Aspartate Amino Transferase 245 U/L (5-37); Bilirubin Total 0.5 mg/dL (0.0-1.0); Blood Urea Nitrogen 21 mg/dL (9-16); Calcium 7.3 mg/dL (8.4-10.2); Carbon Dioxide 31 mmol/L (22-29); Chloride 102 mmol/L (96-108); Creatinine Clr Calc Pharmacy 141.2; Estimated Glomerular Filt Rate > 60; Glucose Random 174 mg/dL (60-115); Magnesium 1.4 mg/dL (1.6-2.6); Phosphorus 1.9 mg/dL (2.7-4.5); Potassium 2.8 mmol/L (3.3-5.1); Sodium 142 mmol/L (135-145)
[2024-11-04 05:39] LABS: SLIDE REVIEW VERIFIED
[2024-11-04] MEDS: Magnesium Sulfate/H2O 2 GM/50 ML PIGGYBACK IV (06:09)
[2024-11-04] MEDS: Pantoprazole Sodium 40 MG/10 ML VIAL IVPUSH (06:12)
[2024-11-04] MEDS: Potassium Phosphate/NS 15 MMOL/250 ML PLAST..BAG 62.5 MMOL IV ×2 (06:15→09:57)
--- NOTE | 2024-11-04 07:02 | PC.NURSE ---
19:00: Assumed care of this patient. 20:00 hour: Patient febrile 101.6 core temp. Plan of care discussed with PA; tylenol deferred due to continued elevated LFTs, tylenol recently ineffective x2 for patient during public relations writer's care. PA orders for cooling blanket as ice packs had been ineffective/no change in temp. 23:00 hour: Patient normothermic. Cooling blanket removed. Vasopressin was paused per [facility] verbal order in favor of neosynephrine gtt (see MAR). 02:00 hour: Patient noted to be hypothermic 95.3 core. PA made aware as pt had been previously febrile requiring brief placement on a cooling blanket that had long since been off and removed earlier in the evening per above. Rectal temp obtained to correlate with core temp per PA verbal request; +correlated 95.3 rectal. PA order to place additional warm blankets/chao hugger deferred at this time. Temp 96.8 at 06:45 during handoff report. 07:00 hour Patient noted with increased agitation during handoff report, RASS of +2 as evidenced by patient awake, appearing anxious, attempting to talk over vent, and difficult to redirect and calm. Tidal volumes not being met and spo2 in 80's on vent settings. Java User Interface Developer and oncoming RN at bedside, requested respiratory stat to bedside to assist, patient bagged with ambu with spo2 improved to 100%. Respiratory arrived and placed pt on PSV 20/5/30%, tolerating better than previous vent settings of ACVC 12/450/5/30%. Dr. Redd messaged via [employer] with order received for 2mg IVP ativan, given at 07:12. Effectiveness pending, oncoming RN assumed care. Please see shift assessments, tasks, and MAR for full assessment details.
[2024-11-04] MEDS: LORazepam 2 MG/ML VIAL IVPUSH (07:12)
[2024-11-04] MEDS: Phenylephrine HCL 100 MG in 0.9 % Sodium Chloride 250 ML 28.11 MG IVCONT (08:17)
[2024-11-04] MEDS: propofoL 1,000 MG/100 ML VIAL 18.02 MG IVCONT (08:38)
[2024-11-04] MEDS: 0.9 % Sodium Chloride Flush 3 ML SYRINGE IVFLUSH ×3 (09:20→23:13)
[2024-11-04] MEDS: Furosemide 40 MG/4 ML VIAL IVPUSH ×2 (09:48→22:07)
[2024-11-04] MEDS: Enoxaparin Sodium 80 MG/0.8 ML SYRINGE 70 MG SUBCUT ×2 (09:48→20:43)
[2024-11-04] MEDS: Chlorhexidine Gluc Oral Rinse 15 ML MOUTHWASH BUCCAL ×2 (09:48→20:43)
[2024-11-04 12:00] LABS: Glucose, Whole Blood 164 mg/dL (60-115)
--- NOTE | 2024-11-04 14:21 | PC.RT ---
RN trialed pt off propofol at approx 1350. This RT attempted PSV trials throughout a 30 minute period. Pt was coached through deep and slow breathing. Pt was tachypeic with low volumes on various PSV settings. Pt was rested on AC then trialed again on PSV. Multiple attempts were made however pt remained tachypneic. Pt failed SBT trials. RN placed pt back on propofol and RT rested pt back on ACVC+ settings.
[2024-11-04] MEDS: Phenylephrine HCL 100 MG in 0.9 % Sodium Chloride 250 ML 56.22 MG IVCONT (15:06)
--- NOTE | 2024-11-04 17:19 | PM.CCPN ---
Subjective Subjective Date of Service: 11/04/24 Critical Care Time (minutes): 35 Comment: Episodes of vent dyssynchrony this morning leading to hypoxia On phenylephrine and vasopressin for vasopressor support Started on propofol for sedation Physical Exam Vital Signs: Vital Signs: Last Vital Signs Temp 100.9 F H 11/04/24 16:00 Pulse 93 11/04/24 16:00 Resp 26 H 11/04/24 16:00 BP 110/52 L 11/04/24 16:00 Pulse Ox 96 11/04/24 16:00 O2 Del Method Mechanical Ventil ation 11/04/24 16:00 O2 Flow Rate 10 10/31/24 14:00 FiO2 30 11/04/24 16:00 Oxygen Flow Rate 15 10/29/24 14:07 BMI result Body Mass Index 32.6 General: In somewhat acute distress, ill appearing and tired appearing Nutritional Appearance: well nourished and overweight Eyes: appearance normal, both eyes and all related structures; Alignment and Position: alignment normal and position normal Neck: No lymphadenopathy, no thyromegaly Resp: bilateral air entry equal, bibasilar crackles heard Cardio: Regular rate, regular rhythm; Heart sounds: S1 normal heart sound present and S2 normal heart sound present GI: soft, nontender, no guarding, no hepatosplenomegaly : bladder normal to inspection, bladder normal to palpation, no renal angle tenderness Skin: no rashes or lesions noted and elasticity normal Neuro: No focal deficits, moves all extremities Objective Data Labs 11/04/24 04:25 11/04/24 04:25 Labs: Laboratory Results - last 24 hr 11/03/24 11/04/24 11/04/24 17:38 00:08 04:25 WBC 15.7 H RBC 3.60 L Hgb 9.2 L Hct 29.4 L MCV 81.7 MCH 25.6 L MCHC 31.3 RDW 16.5 H Plt Count 80 L D MPV 11.5 Immature Gran % (Auto) 1.1 H Neut % (Auto) 69.8 Lymph % (Auto) 21.6 [place] % (Auto) 4.9 Eos % (Auto) 2.3 Baso % (Auto) 0.3 Lymph # (Auto) 3.4 [place] # (Auto) 0.8 Eos # (Auto) 0.4 Baso # (Auto) 0.1 Abs Immat Gran (auto) 0.17 H Absolute Neuts (auto) 11.0 H Absolute Nucleated RBC 0.020 H Nucleated RBC % (auto) 0.1 Smear Tech's Comments VERIFIED O2 Saturation ABG pH at Pt Temp ABG pCO2 at Pt Temp ABG pO2 at Pt Temp ABG HCO3 ABG Base Excess (Actual) Sodium 142 Potassium 2.8 L* Chloride 102 Carbon Dioxide 31 H Anion Gap 12 BUN 21 H Creatinine 0.51 Estim Creat Clear Calc 141.2 Estimated GFR > 60 POC Glucose 209 H 186 H Random Glucose 174 H Calcium 7.3 L Phosphorus 1.9 L Magnesium 1.4 L* Total Bilirubin 0.5 AST 245 H ALT 603 H Alkaline Phosphatase 216 H Total Protein 6.0 L Albumin 2.5 L Vancomycin Trough 11/04/24 11/04/24 11/04/24 04:30 08:11 11:56 WBC RBC Hgb Hct MCV MCH MCHC RDW Plt Count MPV Immature Gran % (Auto) Neut % (Auto) Lymph % (Auto) [place] % (Auto) Eos % (Auto) Baso % (Auto) Lymph # (Auto) [place] # (Auto) Eos # (Auto) Baso # (Auto) Abs Immat Gran (auto) Absolute Neuts (auto) Absolute Nucleated RBC Nucleated RBC % (auto) Smear Tech's Comments O2 Saturation 100.0 ABG pH at Pt Temp 7.55 H ABG pCO2 at Pt Temp 41 ABG pO2 at Pt Temp 127 H ABG HCO3 36 H ABG Base Excess (Actual) 13.2 Sodium Potassium Chloride Carbon Dioxide Anion Gap BUN Creatinine Estim Creat Clear Calc Estimated GFR POC Glucose 164 H Random Glucose Calcium Phosphorus Magnesium Total Bilirubin AST ALT Alkaline Phosphatase Total Protein Albumin Vancomycin Trough 21.0 H Microbiology Microbiology Results: Microbiology 11/02/24 09:16 Groin, Right Gram Stain - Final 11/02/24 09:16 Groin, Right Routine Culture - Preliminary Gram negative oswald 10/29/24 15:29 Blood - Venous Blood Culture - Final No growth after 5 days. 10/29/24 14:42 Blood - Venous Blood Culture - Final No growth after 5 days. 10/29/24 Unknown Urine Catheterized - Kelly Catheter Urine Culture - Final Escherichia coli Progress Note: A&P Assessment and plan (1) Metabolic alkalosis: Status: Acute (2) Chronic indwelling Kelly catheter: Status: Acute (3) UTI (urinary tract infection): Status: Acute (4) Sepsis due to urinary tract infection: Status: Acute (5) Septic shock: Status: Acute (6) Skin necrosis: Status: Acute (7) Metabolic encephalopathy: Status: Acute (8) Acute encephalopathy: Status: Acute (9) Acute on chronic hypoxic respiratory failure: Status: Acute (10) Abnormal finding on imaging: Status: Acute Plan Neuro: Acute encephalopathy possibly due to metabolic encephalopathy from urinary tract infection Precedex, added propofol this morning due to significant vent dyssynchrony leading to poor volumes. P.r.n. rocuronium 50 pushes if needed Close neurological status monitoring in the ICU every hour Cardiac: Septic Shock: Possibly secondary to urinary tract infection Levophed switched to phenylephrine due to frequent PVCs and non sustained VT. also on vasopressin as 2nd vasopressor support In bedside echo showed dilated RV, slightly depressed LV systolic function. Chest x-ray after fluids yesterday showed bilateral small pleural effusion so he was given dose of Lasix with adequate response Non sustained VT: received one dose of amiodarone for non sustained VT will avoid levophed, on phenylephrine will keep K above 4, Mg above 2; will repeat labs at noon Paroxysmal atrial fibrillation: Could not take apixaban as he is NPO, switched to therapeutic Lovenox for anticoagulation Respiratory: Acute hypoxemic respiratory failure due to idiopathic pulmonary fibrosis and pulmonary edema from heart failure On ventilator support this morning PRVC mode FiO2 30%, peep 5, tidal volume 360, rate 20, we will try him on pressor support trials tomorrow in the morning. Ventilator management protocol, chlorhexidine mouthwash, head elevation, daily awakening trials GI: Congestive hepatopathy vs shock liver: LFT improving AST 603 and ALT 216 will continue diurese with lasix 40mg BID continue tube feeds Renal: Normal renal function We will closely monitor I's and O's Avoid nephrotoxic medications Acute hypokalemia: will replace as per protocol Acute hypophosphatemia: will replete as per protocol Heme: Chronic anemia, closely monitor H&H, transfuse for hemoglobin less than 7 grams/deciliter hemoglobin slowly decreasing due to critical care illness and blood draws Endocrine: Blood sugars under control on sliding scale as needed Sliding scale insulin as needed Infectious disease: Urine cultures positive for ESBL, blood cultures negative Lactate down from 2.1-1.8 Continue meropenem for antibiotic coverage on vancomycin for skin suture site infection Musculoskeletal: Decubitus ulcer prevention protocol stage 2 left sacrum, DTI on right sacrum Lines: Peripheral Prophylaxis: Lovenox, pantoprazole Quality Stroke Does the patient have a stroke diagnosis?: No VTE Prior VTE?: No VTE Risk Level:: Medical - moderate - high VTE Device Contraindication: Treatment Not Indicated VTE Drug Contraindication: N/A - Med Ordered
[2024-11-04 17:29] LABS: Glucose, Whole Blood 111 mg/dL (60-115)
[2024-11-04] MEDS: Phenylephrine HCL 100 MG in 0.9 % Sodium Chloride 250 ML 63.25 MG IVCONT (18:35)
[2024-11-04] MEDS: propofoL 1,000 MG/100 ML VIAL 6.01 MG IVCONT (18:45)
--- NOTE | 2024-11-04 19:43 | PC.NURSE ---
Assumed care of patient 0700 Pt had episode of respiratory distress at shift change. Increased agitation and attempting to remove airway, RASS 2+. Previous RN and this RN in room with RT at bedside. Pt has high peak pressures, fighting against volumes of vent. Pt manually ambu bagged. PSV settings 20/5, 30% attempted by RT. Pt RR 40, volumes insufficient. MD contacted, per new orders gave 2mg Ativan IVP. Precedex gtt running at 1.5 Ativan had good effect. Pt has improved vent synchrony. Agitation decreased with RASS -2. 08:30 Patient had similar episode of agitation, breakthrough in sedation with Precedex gtt still at 1.5 max rate. High pressure alarms on vent. RT called to bedside. Patient ambu bagged with PEEP valve. Pt reconnected to vent circuit and Pressure Control settings attempted. Pt unable to attain vent synchrony with PC or VC. MD notified. Per new orders, Propofol gtt started per protocol. Precedx gtt paused due to decreased effect and bradycardia with HR down to 48. 08:38 Propofol gtt started. Vent synchrony improved. RASS -1 13:45 Pt had third episode of vent dysynchrony and agitation. Propofol gtt @10 for low blood pressures and increasing vasopressor requirements. Per MD, start sedation vacation and PSV trial. Pt trailed four separate attempts on PSV 20/5.0, 30% by RT at bedside. Pt eyes open, nods yes/no to questions, calm with encouragement for relaxation. RR 40, volumes insufficient <200 on PSV. 14:18 ended sedation vacation. Propofol resumed @10. Vent settings adjusted by RT to ACVC+ 12/420/5/30% RR 21, volumes 369. Pt RASS -1, calm and has vent synchrony.
[2024-11-04] MEDS: LORazepam 2 MG/ML VIAL 1 MG IVPUSH (20:31)
[2024-11-04] MEDS: Vasopressin 20 UNIT/100 ML INFUS..BTL 6 UNIT IVCONT (20:59)
[2024-11-04 21:25] LABS: Alanine Aminotransferase 419 U/L (0-40); Albumin Level 2.5 g/dL (3.5-5.0); Alkaline Phosphatase 232 U/L (39-117); Anion Gap 13 (12-20); Aspartate Amino Transferase 130 U/L (5-37); Bilirubin Total 0.5 mg/dL (0.0-1.0); Blood Urea Nitrogen 21 mg/dL (9-16); Calcium 7.2 mg/dL (8.4-10.2); Carbon Dioxide 31 mmol/L (22-29); Chloride 104 mmol/L (96-108); Creatinine Clr Calc Pharmacy 131.4; Estimated Glomerular Filt Rate > 60; Glucose Random 137 mg/dL (60-115); Magnesium 1.7 mg/dL (1.6-2.6); Phosphorus 3.3 mg/dL (2.7-4.5); Potassium 3.1 mmol/L (3.3-5.1); Sodium 145 mmol/L (135-145); Total Protein 6.1 g/dL (6.5-8.0)
[2024-11-04] MEDS: Phenylephrine HCL 100 MG in 0.9 % Sodium Chloride 250 ML 77.31 MG IVCONT (22:02)
[2024-11-04] MEDS: Potassium Chloride/H20 40 MEQ/100 ML PIGGYBACK 100 MEQ IV (22:17)
[2024-11-04] MEDS: Albumin Human 25 % 100 ML 133.33 ML IV ×3 (22:22→23:56)
[2024-11-04 23:08] LABS: Glucose, Whole Blood 153 mg/dL (60-115)
[2024-11-05] VITALS (52 sets, daily range): BP systolic 97–140; BP diastolic 42–69; PULSE 70–106; RESP 10–23; TEMP 35–38.7; O2SAT 89–100; BMI 33.2
[2024-11-05] MEDS: Albumin Human 25 % 100 ML 133.33 ML IV (00:43)
[2024-11-05] MEDS: Phenylephrine HCL 100 MG in 0.9 % Sodium Chloride 250 ML 70.28 MG IVCONT (01:40)
[2024-11-05] MEDS: Vasopressin 20 UNIT/100 ML INFUS..BTL 12 UNIT IVCONT ×3 (02:26→17:54)
[2024-11-05] MEDS: Meropenem 1 GM VIAL IVPUSH ×3 (02:28→17:37)
[2024-11-05] MEDS: propofoL 1,000 MG/100 ML VIAL 18.02 MG IVCONT ×2 (03:49→08:41)
[2024-11-05 04:32] LABS: ABG HCO3 34 mmol/L (22-26); ABG pCO2 53 mmHg (32-45); ABG pH 7.42 (7.35-7.45); ABG pO2 160 mmHg (83-108)
[2024-11-05 04:37] LABS: ABG Refer to POC result
[2024-11-05 04:43] LABS: MANUAL DIFF FLAG NO
[2024-11-05 04:54] LABS: Basophils Percent Auto 0.2 % (0-2); Eosinophils Absolute Auto 0.2 X10*3/uL (0.0-0.4); Eosinophils Percent Auto 1.2 % (0-4); Hematocrit 24.7 % (42.0-52.0); Hemoglobin 7.5 g/dl (14.0-18.0); Imm Gran Abs Auto 0.11 X10*3/uL (0.00-0.03); Imm Gran Pct Auto 0.8 % (0.0-0.4); Lymphocytes Percent Auto 21.6 % (20-40); Mean Corpuscular HGB Conc 30.4 g/dl (31.0-36.0); Mean Corpuscular Volume 85.8 fL (80.0-98.0); Mean Platelet Volume 12.2 fL (9.4-12.4); Monocytes Absolute Auto 0.9 X10*3/uL (0.1-1.2); Monocytes Percent Auto 6.6 % (2-11); NRBC Pct Auto 0.4 /100WBC (0.0-0.2); Neutrophils Absolute Auto 9.6 x10*3/uL (2.0-8.3); Neutrophils Percent Auto 69.6 % (45-73); Red Blood Count 2.88 X10*6/uL (4.60-5.80); Red Cell Distribution Width 16.6 % (11.0-16.0); White Blood Count 13.7 X10*3/uL (4.8-10.8)
[2024-11-05 04:55] LABS: Platelet Count 53 X10*3/uL (160-400)
[2024-11-05 05:05] LABS: Alanine Aminotransferase 276 U/L (0-40); Albumin Level 3.4 g/dL (3.5-5.0); Alkaline Phosphatase 157 U/L (39-117); Anion Gap 16 (12-20); Aspartate Amino Transferase 71 U/L (5-37); Bilirubin Total 1.1 mg/dL (0.0-1.0); Blood Urea Nitrogen 20 mg/dL (9-16); Calcium 7.1 mg/dL (8.4-10.2); Carbon Dioxide 28 mmol/L (22-29); Chloride 104 mmol/L (96-108); Creatinine Clr Calc Pharmacy 129.1; Estimated Glomerular Filt Rate > 60; Glucose Random 232 mg/dL (60-115); Magnesium 1.6 mg/dL (1.6-2.6); Phosphorus 3.1 mg/dL (2.7-4.5); Potassium 3.2 mmol/L (3.3-5.1); Sodium 145 mmol/L (135-145); Total Protein 6.3 g/dL (6.5-8.0)
[2024-11-05] MEDS: Phenylephrine HCL 100 MG in 0.9 % Sodium Chloride 250 ML 77.31 MG IVCONT ×6 (05:05→21:21)
[2024-11-05] MEDS: Insulin Lispro 100 UNIT/ML 3 ML VIAL SUBCUT ×4 (05:42→23:23)
[2024-11-05] MEDS: Pantoprazole Sodium 40 MG/10 ML VIAL IVPUSH (06:31)
--- NOTE | 2024-11-05 07:17 | PC.NURSE ---
Assumed care of patient at 19:00.? Patient febrile overnight 102.2 tmax core temp. Provider Tee Brown made aware. Tylenol and cooling blanket deferred by provider; Ice packs placed instead as per PA verbal order due to sensitivity to cooling blanket the night prior.??? 20:00 hour: Patient not at RASS score goal, unable to titrate propofol up due to low MAP goals per MAR when attempted. Discussed this and vitals with PA. Neosynephrine and propofol titrated per PA verbal orders, order for 1x 1mg ativan. ? PA verbal order to start vasopressin at 0.02units/min due to low MAPs while maxed on neosynephrine gtt, and to also hold off on scheduled lasix at this time pending BP reassessment after vasopressin is infusing. ~21:45: Ativan effectiveness was short-lived. PA to bedside. RASS still not at goal, propofol increased per PA. Vasopressin increased to 0.04 units/min per PA for BP. Verbal order to give lasix at this time.? 22:00 hour: Albumin and KCl ordered and administered per PA based on labs obtained earlier this evening.? 06:00 hour: Morning lab results discussed with PA. Orders for additional KCl repletions this morning. Protonix reordered and administered.? Bed alarm on and safety measures continue. Handoff report given to oncvanessa RN 06:45.
[2024-11-05] MEDS: Furosemide 40 MG/4 ML VIAL IVPUSH ×2 (07:39→20:24)
[2024-11-05] MEDS: Potassium Chloride/H20 40 MEQ/100 ML PIGGYBACK 100 MEQ IV (07:40)
[2024-11-05] MEDS: Chlorhexidine Gluc Oral Rinse 15 ML MOUTHWASH BUCCAL ×2 (07:40→20:06)
[2024-11-05] MEDS: 0.9 % Sodium Chloride Flush 3 ML SYRINGE IVFLUSH ×3 (07:40→23:38)
[2024-11-05] MEDS: Enoxaparin Sodium 80 MG/0.8 ML SYRINGE 70 MG SUBCUT ×2 (07:41→21:43)
[2024-11-05 10:23] LABS: Vancomycin Random 15.4 mcg/mL (15-20)
--- NOTE | 2024-11-05 10:34 | HE.PHANOTE ---
RE VANCO DOSING DOSE WAS HELD DUE TO ELEVATED TROUGH. WILL RESUME AT LOWER DOSE OF 1250 Q24 NOW THAT TROUGH IS BACK IN RANGE. RECHECK LEVEL TOMORROW @1000.
[2024-11-05 11:33] LABS: Glucose, Whole Blood 214 mg/dL (60-115)
[2024-11-05] MEDS: vancomycin HCL 1,250 MG in 0.9 % Sodium Chloride 250 ML 166.67 MG IV (12:03)
--- NOTE | 2024-11-05 12:58 | HO.SKINPHOTO ---
SKIN PHOTO UPDATES 11/05/24 09:00 Location: right groin - site of TLC Right femoral removal 10/31/24 Category: MDPI Stage: unstageable dressing changed - durafiber Ag, gauze, tegaderm Location: view of whole posterior back, right upper back visible. Category: irregular skin pigmentation Location: right gluteal fold Category: MASD triad and large foam dsg applied Location: coccyx, right sacrum Category: PI Stage: DTI triad and large foam applied
--- NOTE | 2024-11-05 14:42 | PM.CCPN ---
Subjective Subjective Date of Service: 11/05/24 Critical Care Time (minutes): 35 Comment: Continues to be on ventilator support this morning On phenylephrine for vasopressor support On propofol for sedation Physical Exam Vital Signs: Vital Signs: Last Vital Signs Temp 100.2 F 11/05/24 14:00 Pulse 89 11/05/24 14:00 Resp 20 11/05/24 14:00 BP 108/54 L 11/05/24 14:00 Pulse Ox 95 11/05/24 14:00 O2 Del Method Mechanical Ventil ation 11/05/24 14:00 O2 Flow Rate 10 10/31/24 14:00 FiO2 30 11/05/24 14:00 Oxygen Flow Rate 15 10/29/24 14:07 BMI result Body Mass Index 33.2 General: Elderly male, unresponsive on the ventilator support Nutritional Appearance: well nourished and overweight Eyes: appearance normal, both eyes and all related structures; Alignment and Position: alignment normal and position normal Neck: No lymphadenopathy, no thyromegaly Resp: bilateral air entry equal, added sounds present mostly in the lung bases Cardio: Regular rate, regular rhythm; Heart sounds: S1 normal heart sound present and S2 normal heart sound present GI: soft, nontender, no guarding, no hepatosplenomegaly : bladder normal to inspection, bladder normal to palpation, no renal angle tenderness Skin: no rashes or lesions noted and elasticity normal Neuro: No focal deficits, moves all extremities Objective Data Labs 11/05/24 04:20 11/05/24 04:20 Labs: Laboratory Results - last 24 hr 11/04/24 11/04/24 11/04/24 17:25 20:45 23:05 WBC RBC Hgb Hct MCV MCH MCHC RDW Plt Count MPV Immature Gran % (Auto) Neut % (Auto) Lymph % (Auto) [place] % (Auto) Eos % (Auto) Baso % (Auto) Lymph # (Auto) [place] # (Auto) Eos # (Auto) Baso # (Auto) Abs Immat Gran (auto) Absolute Neuts (auto) Absolute Nucleated RBC Nucleated RBC % (auto) O2 Saturation ABG pH at Pt Temp ABG pCO2 at Pt Temp ABG pO2 at Pt Temp ABG HCO3 ABG Base Excess (Actual) Sodium 145 Potassium 3.1 L Chloride 104 Carbon Dioxide 31 H Anion Gap 13 BUN 21 H Creatinine 0.54 Estim Creat Clear Calc 131.4 Estimated GFR > 60 POC Glucose 111 153 H Random Glucose 137 H Calcium 7.2 L Phosphorus 3.3 Magnesium 1.7 Total Bilirubin 0.5 AST 130 H ALT 419 H Alkaline Phosphatase 232 H Total Protein 6.1 L Albumin 2.5 L Random Vancomycin 11/05/24 11/05/24 11/05/24 04:20 04:29 09:46 WBC 13.7 H RBC 2.88 L Hgb 7.5 L Hct 24.7 L MCV 85.8 MCH 26.0 L MCHC 30.4 L RDW 16.6 H Plt Count 53 L D MPV 12.2 Immature Gran % (Auto) 0.8 H Neut % (Auto) 69.6 Lymph % (Auto) 21.6 [place] % (Auto) 6.6 Eos % (Auto) 1.2 Baso % (Auto) 0.2 Lymph # (Auto) 3.0 [place] # (Auto) 0.9 Eos # (Auto) 0.2 Baso # (Auto) 0.0 Abs Immat Gran (auto) 0.11 H Absolute Neuts (auto) 9.6 H Absolute Nucleated RBC 0.050 H Nucleated RBC % (auto) 0.4 H O2 Saturation 100.0 ABG pH at Pt Temp 7.42 ABG pCO2 at Pt Temp 53 H ABG pO2 at Pt Temp 160 H ABG HCO3 34 H ABG Base Excess (Actual) 9.0 Sodium 145 Potassium 3.2 L Chloride 104 Carbon Dioxide 28 Anion Gap 16 BUN 20 H Creatinine 0.55 Estim Creat Clear Calc 129.1 Estimated GFR > 60 POC Glucose Random Glucose 232 H Calcium 7.1 L Phosphorus 3.1 Magnesium 1.6 Total Bilirubin 1.1 H AST 71 H ALT 276 H Alkaline Phosphatase 157 H Total Protein 6.3 L Albumin 3.4 L Random Vancomycin 15.4 11/05/24 11:22 WBC RBC Hgb Hct MCV MCH MCHC RDW Plt Count MPV Immature Gran % (Auto) Neut % (Auto) Lymph % (Auto) [place] % (Auto) Eos % (Auto) Baso % (Auto) Lymph # (Auto) [place] # (Auto) Eos # (Auto) Baso # (Auto) Abs Immat Gran (auto) Absolute Neuts (auto) Absolute Nucleated RBC Nucleated RBC % (auto) O2 Saturation ABG pH at Pt Temp ABG pCO2 at Pt Temp ABG pO2 at Pt Temp ABG HCO3 ABG Base Excess (Actual) Sodium Potassium Chloride Carbon Dioxide Anion Gap BUN Creatinine Estim Creat Clear Calc Estimated GFR POC Glucose 214 H Random Glucose Calcium Phosphorus Magnesium Total Bilirubin AST ALT Alkaline Phosphatase Total Protein Albumin Random Vancomycin Microbiology Microbiology Results: Microbiology 11/02/24 09:16 Groin, Right Gram Stain - Final 11/02/24 09:16 Groin, Right Routine Culture - Final Proteus mirabilis So albicans 10/29/24 15:29 Blood - Venous Blood Culture - Final No growth after 5 days. 10/29/24 14:42 Blood - Venous Blood Culture - Final No growth after 5 days. 10/29/24 Unknown Urine Catheterized - Kelly Catheter Urine Culture - Final Escherichia coli Progress Note: A&P Assessment and plan (1) Metabolic alkalosis: Status: Acute (2) Chronic indwelling Kelly catheter: Status: Acute (3) UTI (urinary tract infection): Status: Acute (4) Septic shock: Status: Acute (5) Sepsis due to urinary tract infection: Status: Acute (6) Metabolic encephalopathy: Status: Acute (7) Acute encephalopathy: Status: Acute (8) Acute on chronic hypoxic respiratory failure: Status: Acute Plan 79-year-old gentleman with past medical history of diabetes mellitus, idiopathic pulmonary fibrosis, paroxysmal atrial fibrillation on Eliquis, 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 ICU course complicated by worsening shock eventually leading to respiratory fatigue needing intubation and ventilator support. Failing weaning trials for the past 2 days due to poor tidal volumes and tachypnea. Neuro: Acute encephalopathy possibly due to metabolic encephalopathy from urinary tract infection Precedex, and propofol due to significant vent dyssynchrony leading to poor volumes. P.r.n. rocuronium 50 pushes if needed Close neurological status monitoring in the ICU every hour Cardiac: Septic Shock: Possibly secondary to urinary tract infection Levophed switched to phenylephrine due to frequent PVCs and non sustained VT, also on vasopressin as 2nd vasopressor support In bedside echo showed dilated RV, slightly depressed LV systolic function. Non sustained VT: received one dose of amiodarone for non sustained VT will avoid levophed, on phenylephrine will keep K above 4, Mg above 2; will repeat labs at noon Paroxysmal atrial fibrillation: Could not take apixaban as he is NPO, switched to therapeutic Lovenox for anticoagulation Respiratory: Acute hypoxemic respiratory failure due to idiopathic pulmonary fibrosis and pulmonary edema from heart failure On ventilator support this morning PRVC mode FiO2 30%, peep 5, tidal volume 360, rate 20, failed weaning trials due to tachypnea and poor minute volumes Ventilator management protocol, chlorhexidine mouthwash, head elevation, daily awakening trials GI: Congestive hepatopathy vs shock liver: LFT improving AST 71 and ALT 276 will continue diurese with lasix 40mg BID continue tube feeds Renal: Normal renal function We will closely monitor I's and O's Avoid nephrotoxic medications Acute hypokalemia: Improved Acute hypophosphatemia: Improved Heme: Chronic anemia, closely monitor H&H, transfuse for hemoglobin less than 7 grams/deciliter hemoglobin slowly decreasing due to critical care illness and blood draws Endocrine: Blood sugars under control on sliding scale as needed Sliding scale insulin as needed Infectious disease: Urine cultures positive for ESBL, blood cultures negative Lactate down from 2.1-1.8 Continue meropenem for antibiotic coverage on vancomycin for skin suture site infection Musculoskeletal: Decubitus ulcer prevention protocol stage 2 left sacrum, DTI on right sacrum Lines: Peripheral Prophylaxis: Lovenox, pantoprazole Quality Stroke Does the patient have a stroke diagnosis?: No VTE Prior VTE?: No VTE Risk Level:: Medical - moderate - high VTE Device Contraindication: Treatment Not Indicated VTE Drug Contraindication: N/A - Med Ordered
[2024-11-05] MEDS: propofoL 1,000 MG/100 ML VIAL 12.01 MG IVCONT ×2 (15:22→21:27)
[2024-11-05 17:33] LABS: Glucose, Whole Blood 192 mg/dL (60-115)
[2024-11-05 20:58] LABS: Hematocrit 26.4 % (42.0-52.0); Mean Corpuscular HGB Conc 30.3 g/dl (31.0-36.0); Mean Corpuscular Hemoglobin 25.8 pg (27.0-33.0); Mean Corpuscular Volume 85.2 fL (80.0-98.0); Mean Platelet Volume 12.2 fL (9.4-12.4); NRBC Pct Auto 0.5 /100WBC (0.0-0.2); Red Cell Distribution Width 16.6 % (11.0-16.0); White Blood Count 15.3 X10*3/uL (4.8-10.8)
[2024-11-05 21:02] LABS: Platelet Count 50 X10*3/uL (160-400)
[2024-11-05 21:15] LABS: Alanine Aminotransferase 212 U/L (0-40); Alkaline Phosphatase 163 U/L (39-117); Anion Gap 14 (12-20); Aspartate Amino Transferase 51 U/L (5-37); Bilirubin Total 0.7 mg/dL (0.0-1.0); Blood Urea Nitrogen 21 mg/dL (9-16); Calcium 7.2 mg/dL (8.4-10.2); Carbon Dioxide 27 mmol/L (22-29); Chloride 106 mmol/L (96-108); Creatinine Clr Calc Pharmacy 130.3; Estimated Glomerular Filt Rate > 60; Glucose Random 214 mg/dL (60-115); Magnesium 1.5 mg/dL (1.6-2.6); Phosphorus 2.2 mg/dL (2.7-4.5); Sodium 143 mmol/L (135-145); Total Protein 6.1 g/dL (6.5-8.0)
[2024-11-05 23:26] LABS: Glucose, Whole Blood 220 mg/dL (60-115)
[2024-11-06] VITALS (62 sets, daily range): BP systolic 78–163; BP diastolic 32–72; PULSE 70–100; RESP 12–23; TEMP 34.6–38.4; O2SAT 89–100; BMI 33.2
[2024-11-06] MEDS: Phenylephrine HCL 100 MG in 0.9 % Sodium Chloride 250 ML 77.31 MG IVCONT ×4 (00:22→09:50)
[2024-11-06] MEDS: Vasopressin 20 UNIT/100 ML INFUS..BTL 12 UNIT IVCONT ×4 (00:40→22:55)
[2024-11-06] MEDS: Meropenem 1 GM VIAL IVPUSH ×3 (02:18→18:36)
[2024-11-06] MEDS: propofoL 1,000 MG/100 ML VIAL 15.02 MG IVCONT ×3 (04:14→18:35)
[2024-11-06 04:16] LABS: ABG Base Excess 8.4 mmol/L; ABG HCO3 34 mmol/L (22-26); ABG pCO2 54 mmHg (32-45); ABG pO2 77 mmHg (83-108)
[2024-11-06 04:17] LABS: ABG Refer to POC result
[2024-11-06 04:36] LABS: MANUAL DIFF FLAG NO
[2024-11-06 04:37] LABS: Basophils Percent Auto 0.3 % (0-2); Eosinophils Absolute Auto 0.2 X10*3/uL (0.0-0.4); Eosinophils Percent Auto 1.3 % (0-4); Hematocrit 26.4 % (42.0-52.0); Hemoglobin 8.1 g/dl (14.0-18.0); Imm Gran Abs Auto 0.13 X10*3/uL (0.00-0.03); Imm Gran Pct Auto 0.8 % (0.0-0.4); Lymphocytes Absolute Auto 3.3 X10*3/uL (1.2-4.9); Lymphocytes Percent Auto 20.9 % (20-40); Mean Corpuscular HGB Conc 30.7 g/dl (31.0-36.0); Mean Corpuscular Volume 84.9 fL (80.0-98.0); Monocytes Absolute Auto 1.1 X10*3/uL (0.1-1.2); Monocytes Percent Auto 6.8 % (2-11); NRBC Pct Auto 0.4 /100WBC (0.0-0.2); Neutrophils Absolute Auto 11.1 x10*3/uL (2.0-8.3); Neutrophils Percent Auto 69.9 % (45-73); Platelet Count 50 X10*3/uL (160-400); Red Blood Count 3.11 X10*6/uL (4.60-5.80); Red Cell Distribution Width 16.8 % (11.0-16.0); White Blood Count 15.9 X10*3/uL (4.8-10.8)
[2024-11-06 04:56] LABS: Alanine Aminotransferase 187 U/L (0-40); Alkaline Phosphatase 169 U/L (39-117); Anion Gap 15 (12-20); Aspartate Amino Transferase 45 U/L (5-37); Bilirubin Total 0.6 mg/dL (0.0-1.0); Blood Urea Nitrogen 20 mg/dL (9-16); Calcium 7.3 mg/dL (8.4-10.2); Carbon Dioxide 28 mmol/L (22-29); Chloride 104 mmol/L (96-108); Creatinine Clr Calc Pharmacy 121.5; Estimated Glomerular Filt Rate > 60; Glucose Random 236 mg/dL (60-115); Magnesium 1.6 mg/dL (1.6-2.6); Phosphorus 2.2 mg/dL (2.7-4.5); Potassium 3.5 mmol/L (3.3-5.1); Sodium 143 mmol/L (135-145); Total Protein 6.2 g/dL (6.5-8.0)
[2024-11-06] MEDS: Insulin Lispro 100 UNIT/ML 3 ML VIAL SUBCUT ×4 (05:11→23:56)
[2024-11-06] MEDS: Pantoprazole Sodium 40 MG/10 ML VIAL IVPUSH (05:58)
[2024-11-06] MEDS: Potassium Phosphate/NS 15 MMOL/250 ML PLAST..BAG 62.5 MMOL IV ×2 (06:04→11:55)
[2024-11-06] MEDS: Furosemide 40 MG/4 ML VIAL IVPUSH (08:14)
[2024-11-06] MEDS: Enoxaparin Sodium 80 MG/0.8 ML SYRINGE 70 MG SUBCUT (08:14)
[2024-11-06] MEDS: Chlorhexidine Gluc Oral Rinse 15 ML MOUTHWASH BUCCAL ×2 (08:14→19:49)
[2024-11-06] MEDS: 0.9 % Sodium Chloride Flush 3 ML SYRINGE IVFLUSH ×2 (08:16→16:44)
[2024-11-06 10:25] LABS: Vancomycin Random 17.8 mcg/mL (15-20)
--- NOTE | 2024-11-06 10:26 | P.PNCC_ITS ---
Subjective Subjective Date of Service: 11/06/24 Critical Care Time (minutes): 60 Physical Exam 2 Vital Signs: Vital Signs: Last Vital Signs Temp 100.0 F 11/06/24 08:00 Pulse 80 11/06/24 09:50 Resp 18 11/06/24 08:00 BP 128/62 11/06/24 09:50 Pulse Ox 100 11/06/24 08:00 O2 Del Method Mechanical Ventil ation 11/06/24 08:00 O2 Flow Rate 10 10/31/24 14:00 FiO2 40 11/06/24 08:00 Oxygen Flow Rate 15 10/29/24 14:07 BMI result Body Mass Index 33.2 Const: Other: intubated, sedated; some appreciable spontaneous movements; withdraws to noxious stimulus HEENT: Head: Yes normal to inspection, Yes normocephalic and Yes atraumatic Eyes: General: appearance normal, both eyes and all related structures Neck: Neck: Yes normal visual inspection, Yes full ROM, Yes no meningeal signs, Yes trachea midline and Yes supple Chest: Chest palpation & inspection: normal inspection of the chest Resp: Other: no appreciable rales, rhonchi, wheezing Effort & Inspection: normal respiratory effort Cardio: Rate: regular rate Rhythm: abnormal rhythm GI: Inspection: Yes normal to inspection, No Abdominal wall edema and No distended Palpation (GI): Soft to palpation, not firm, nontender, no guarding and not rigid Skin: General skin exam: no rashes or lesions noted Neuro: General: tone normal and no meningeal signs Extrem: Other: appreciable 1+ pitting edema to bilateral shins General: Yes normal to inspection, Yes full ROM and Yes capillary refill normal Psych: Other: unable to assess Objective Data Labs 11/06/24 04:07 11/06/24 04:07 Labs: Laboratory Results - last 24 hr 11/05/24 11/05/24 11/05/24 11:22 17:23 20:34 WBC 15.3 H RBC 3.10 L Hgb 8.0 L Hct 26.4 L MCV 85.2 MCH 25.8 L MCHC 30.3 L RDW 16.6 H Plt Count 50 L MPV 12.2 Immature Gran % (Auto) Neut % (Auto) Lymph % (Auto) [place] % (Auto) Eos % (Auto) Baso % (Auto) Lymph # (Auto) [place] # (Auto) Eos # (Auto) Baso # (Auto) Abs Immat Gran (auto) Absolute Neuts (auto) Absolute Nucleated RBC 0.070 H Nucleated RBC % (auto) 0.5 H O2 Saturation ABG pH at Pt Temp ABG pCO2 at Pt Temp ABG pO2 at Pt Temp ABG HCO3 ABG Base Excess (Actual) Sodium 143 Potassium 4.0 D Chloride 106 Carbon Dioxide 27 Anion Gap 14 BUN 21 H Creatinine 0.55 Estim Creat Clear Calc 130.3 Estimated GFR > 60 POC Glucose 214 H 192 H Random Glucose 214 H Calcium 7.2 L Phosphorus 2.2 L Magnesium 1.5 L Total Bilirubin 0.7 AST 51 H ALT 212 H Alkaline Phosphatase 163 H Total Protein 6.1 L Albumin 3.0 L Random Vancomycin 11/05/24 11/06/24 11/06/24 23:21 04:07 04:11 WBC 15.9 H RBC 3.11 L Hgb 8.1 L Hct 26.4 L MCV 84.9 MCH 26.0 L MCHC 30.7 L RDW 16.8 H Plt Count 50 L MPV 12.0 Immature Gran % (Auto) 0.8 H Neut % (Auto) 69.9 Lymph % (Auto) 20.9 [place] % (Auto) 6.8 Eos % (Auto) 1.3 Baso % (Auto) 0.3 Lymph # (Auto) 3.3 [place] # (Auto) 1.1 Eos # (Auto) 0.2 Baso # (Auto) 0.0 Abs Immat Gran (auto) 0.13 H Absolute Neuts (auto) 11.1 H Absolute Nucleated RBC 0.070 H Nucleated RBC % (auto) 0.4 H O2 Saturation 95.0 ABG pH at Pt Temp 7.40 ABG pCO2 at Pt Temp 54 H ABG pO2 at Pt Temp 77 L ABG HCO3 34 H ABG Base Excess (Actual) 8.4 Sodium 143 Potassium 3.5 Chloride 104 Carbon Dioxide 28 Anion Gap 15 BUN 20 H Creatinine 0.59 Estim Creat Clear Calc 121.5 Estimated GFR > 60 POC Glucose 220 H Random Glucose 236 H Calcium 7.3 L Phosphorus 2.2 L Magnesium 1.6 Total Bilirubin 0.6 AST 45 H ALT 187 H Alkaline Phosphatase 169 H Total Protein 6.2 L Albumin 3.0 L Random Vancomycin 11/06/24 10:00 WBC RBC Hgb Hct MCV MCH MCHC RDW Plt Count MPV Immature Gran % (Auto) Neut % (Auto) Lymph % (Auto) [place] % (Auto) Eos % (Auto) Baso % (Auto) Lymph # (Auto) [place] # (Auto) Eos # (Auto) Baso # (Auto) Abs Immat Gran (auto) Absolute Neuts (auto) Absolute Nucleated RBC Nucleated RBC % (auto) O2 Saturation ABG pH at Pt Temp ABG pCO2 at Pt Temp ABG pO2 at Pt Temp ABG HCO3 ABG Base Excess (Actual) Sodium Potassium Chloride Carbon Dioxide Anion Gap BUN Creatinine Estim Creat Clear Calc Estimated GFR POC Glucose Random Glucose Calcium Phosphorus Magnesium Total Bilirubin AST ALT Alkaline Phosphatase Total Protein Albumin Random Vancomycin 17.8 Microbiology Microbiology Results: Microbiology 11/02/24 09:16 Groin, Right Gram Stain - Final 11/02/24 09:16 Groin, Right Routine Culture - Final Proteus mirabilis So albicans 10/29/24 15:29 Blood - Venous Blood Culture - Final No growth after 5 days. 10/29/24 14:42 Blood - Venous Blood Culture - Final No growth after 5 days. 10/29/24 Unknown Urine Catheterized - Kelly Catheter Urine Culture - Final Escherichia coli Progress Note: A&P Assessment and plan (1) Septic shock: Status: Acute (2) UTI (urinary tract infection): Status: Acute (3) Acute on chronic hypoxic respiratory failure: Status: Acute Plan Patient is a 79 Y M w/ diabetes mellitus, CHF c/b paroxysmal atrial fibrillation, idiopathic pulmonary fibrosis, prostate cancer c/b recurrent ESBL UTI, and recent pneumonia, presenting to emergency department on 10/29 w/ encephalopathy and purulent urine, c/f UTI, c/b septic shock; ICU course c/b multi-system organ failure including respiratory failure, intubated on 11/01 N: intubated, sedated w/ propofol gtt, wean as tolerated CV: septic shock, phenylephrine and vasopressin gtt, to cross-titrate to norepinephrine gtt; paroxysmal atrial fibrillation, home apixaban when possible R: acute hypoxic respiratory failure, intubated 11/01, wean as tolerated; idiopathic pulmonary fibrosis GI: tube feeds : volume overload; furosemide gtt; to closely monitor renal indices, electrolyte H: thrombocytopenia, to hold chemical DVT prophylaxis until PLT > 100; mechanical devices ID: ESBL UTI c/b septic shock, on meropenem, empiric vancomycin E: diabetes mellitus; insulin regimen Quality Stroke Does the patient have a stroke diagnosis?: No VTE Prior VTE?: No VTE Risk Level:: Medical - moderate - high VTE Device Contraindication: N/A - Device Ordered VTE Drug Contraindication: Treatment Not Tolerated
--- NOTE | 2024-11-06 10:41 | HE.PHANOTE ---
RE: VANCO DOSING Trough came back as 17.8 mg/L which is 2 mg/L higher than predicted. Decrease dose to 1000 mg q24h, next trough is scheduled for 11/07/24 @1000.
[2024-11-06] MEDS: Albumin Human 25 % 50 ML 100 ML IV (11:21)
[2024-11-06] MEDS: Calcium Chloride 1 GM/10 ML SYRINGE IVPUSH ×2 (11:21→19:24)
[2024-11-06 12:04] LABS: Glucose, Whole Blood 215 mg/dL (60-115)
[2024-11-06] MEDS: vancomycin HCL 1,000 MG in 0.9 % Sodium Chloride 250 ML 270 MG IV (12:40)
[2024-11-06] MEDS: Norepinephrine Bitartrate/NS 32 MG/250 ML PLAST..BAG IVCONT (12:48)
[2024-11-06] MEDS: Furosemide 200 MG in 0.9 % Sodium Chloride 80 ML IVCONT ×2 (13:24→22:55)
--- NOTE | 2024-11-06 14:01 | MHC.CLN ---
F/U PT REMAINS INTUBATED AND SEDATED - PROPOFOL PAUSED. RECEIVING TUBE FEEDING. TOLERATING TUBE FEEDING AT MAX GOAL RATE, GLUCERNA AT 90 ML PER HOUR. TUBE FEEDING PROVIDES 2160KCALS (30KCALS/KG IBW), 90G PROTEIN (1.2G/KG IBW), 1842ML FREE WATER FROM FORMULA (25ML/KG IBW). MONITOR TOLERANCE AND LYTES. SKIN WITH DTI TO R SACRUM AND L SACRUM. MONITOR SKIN INTEGRITY.
[2024-11-06] MEDS: Phenylephrine HCL 100 MG in 0.9 % Sodium Chloride 250 ML 21.08 MG IVCONT (14:11)
[2024-11-06 18:01] LABS: Glucose, Whole Blood 205 mg/dL (60-115)
[2024-11-06 18:48] LABS: Anion Gap 12 (12-20); Blood Urea Nitrogen 18 mg/dL (9-16); Calcium 7.9 mg/dL (8.4-10.2); Carbon Dioxide 32 mmol/L (22-29); Chloride 103 mmol/L (96-108); Creatinine Clr Calc Pharmacy 125.7; Estimated Glomerular Filt Rate > 60; Glucose Random 222 mg/dL (60-115); Magnesium 1.5 mg/dL (1.6-2.6); Phosphorus 2.7 mg/dL (2.7-4.5); Potassium 3.7 mmol/L (3.3-5.1); Sodium 143 mmol/L (135-145)
--- NOTE | 2024-11-06 19:18 | PC.NURSE ---
Patient switched to Levophed from Luis as per NOV, Sedation vacation completed, patient unable tolerate PSV, Tachipniec in the 40's and restless, AC/VC+ restarted and sedation restarted at previous rate, see NOV, dressing to TLC changed. Foam dressing to coccyx and thigh changed due to soiled with stool. Lasix drip initiated as ordered with noted increased urine output.
[2024-11-06] MEDS: Magnesium Sulfate/D5W 1 GM/100 ML PIGGYBACK IV (19:24)
[2024-11-06] MEDS: propofoL 1,000 MG/100 ML VIAL 18.02 MG IVCONT (22:55)
[2024-11-07] VITALS (45 sets, daily range): BP systolic 97–134; BP diastolic 41–84; PULSE 80–102; RESP 15–84; TEMP 34.7–38.3; O2SAT 90–100; BMI 30.2
[2024-11-07 00:06] LABS: Glucose, Whole Blood 206 mg/dL (60-115)
[2024-11-07] MEDS: Meropenem 1 GM VIAL IVPUSH ×3 (01:40→17:43)
[2024-11-07] MEDS: propofoL 1,000 MG/100 ML VIAL 18.02 MG IVCONT ×2 (04:03→19:40)
[2024-11-07] MEDS: Insulin Lispro 100 UNIT/ML 3 ML VIAL SUBCUT ×3 (05:30→17:34)
[2024-11-07] MEDS: Pantoprazole Sodium 40 MG/10 ML VIAL IVPUSH (05:30)
[2024-11-07 05:42] LABS: VBG Base Excess 20.4 mmol/L; VBG HCO3 43 mmol/L (22-26); VBG pCO2 42 mmHg; VBG pH 7.62 (7.32-7.43); VBG pO2 43 mmHg
[2024-11-07] MEDS: Vasopressin 20 UNIT/100 ML INFUS..BTL 12 UNIT IVCONT ×3 (05:42→22:19)
[2024-11-07 05:45] LABS: Glucose, Whole Blood 184 mg/dL (60-115)
--- NOTE | 2024-11-07 05:50 | HO.SKINPHOTO ---
Location: Right Cheek Category: MDRPI Stage: II Location: Upper Lip Category: MDRPI Stage: I
--- NOTE | 2024-11-07 05:55 | PC.NURSE ---
Upon initial assessment at 1900- pt sedated on propofol gtt, RASS -3. Tmax 100.9 via core bladder probe, ice bags applied to B/L axilla with good effect. Aflutter on tele, HR 80-100s. Levophed/vasopressin gtts infusing and titrated per MAR to maintain MAP > 65. A-line to L fem with appropriately dampened waveform. Lasix gtt infusing per NOV. ETT #7.5, 24 cm at lip. On ACVC+ settings. Tube tamer changed by RT d/t new MDRPIs- pictures uploaded in chart. TF infusing at goal rate via OGT, no s/s of intolerance, no BM but +flatus. Kelly in place, UOP approx 300 mL/hr. Multiple skin integrity concerns- see wound/PI assessment. CHG bath given this AM, repositioned in bed q2hr with wedges/pillows, on air loss bed, bed locked in lowest possible positioned. See EMR/flowsheet for further details.
[2024-11-07 05:56] LABS: MANUAL DIFF FLAG NO
[2024-11-07 06:11] LABS: Albumin Level 2.7 g/dL (3.5-5.0)
[2024-11-07 06:15] LABS: Basophils Percent Auto 0.2 % (0-2); Eosinophils Absolute Auto 0.4 X10*3/uL (0.0-0.4); Eosinophils Percent Auto 2.5 % (0-4); Hemoglobin 7.9 g/dl (14.0-18.0); Imm Gran Abs Auto 0.15 X10*3/uL (0.00-0.03); Imm Gran Pct Auto 0.9 % (0.0-0.4); Lymphocytes Absolute Auto 3.1 X10*3/uL (1.2-4.9); Lymphocytes Percent Auto 17.8 % (20-40); Mean Corpuscular HGB Conc 30.4 g/dl (31.0-36.0); Mean Corpuscular Hemoglobin 25.6 pg (27.0-33.0); Mean Corpuscular Volume 84.1 fL (80.0-98.0); Mean Platelet Volume 12.1 fL (9.4-12.4); Monocytes Absolute Auto 0.9 X10*3/uL (0.1-1.2); NRBC Pct Auto 0.1 /100WBC (0.0-0.2); Neutrophils Absolute Auto 12.7 x10*3/uL (2.0-8.3); Neutrophils Percent Auto 73.6 % (45-73); Red Blood Count 3.09 X10*6/uL (4.60-5.80); Red Cell Distribution Width 16.6 % (11.0-16.0); White Blood Count 17.3 X10*3/uL (4.8-10.8)
[2024-11-07 06:16] LABS: Platelet Count 70 X10*3/uL (160-400)
[2024-11-07 06:21] LABS: Anion Gap 12 (12-20); Blood Urea Nitrogen 19 mg/dL (9-16); Carbon Dioxide 34 mmol/L (22-29); Chloride 100 mmol/L (96-108); Creatinine Clr Calc Pharmacy 122.3; Estimated Glomerular Filt Rate > 60; Glucose Random 204 mg/dL (60-115); Magnesium 1.6 mg/dL (1.6-2.6); Phosphorus 2.1 mg/dL (2.7-4.5); Potassium 3.2 mmol/L (3.3-5.1); Sodium 143 mmol/L (135-145)
[2024-11-07 06:28] LABS: Venous Blood Gas Refer to POC result
[2024-11-07] MEDS: Chlorhexidine Gluc Oral Rinse 15 ML MOUTHWASH BUCCAL ×2 (08:12→19:41)
[2024-11-07] MEDS: Albumin Human 25 % 50 ML 100 ML IV ×3 (08:12→10:39)
[2024-11-07] MEDS: Potassium Chloride/H20 40 MEQ/100 ML PIGGYBACK 50 MEQ IV (08:13)
--- NOTE | 2024-11-07 08:40 | P.PNCC_ITS ---
Subjective Subjective Date of Service: 11/07/24 Interval History: no significant overnight events Critical Care Time (minutes): 60 Physical Exam 2 Vital Signs: Vital Signs: Last Vital Signs Temp 99.7 F 11/07/24 08:00 Pulse 81 11/07/24 08:01 Resp 18 11/07/24 08:00 BP 123/56 L 11/07/24 08:01 Pulse Ox 99 11/07/24 08:00 O2 Del Method Mechanical Ventil ation 11/07/24 08:00 O2 Flow Rate 10 10/31/24 14:00 FiO2 40 11/07/24 08:04 Oxygen Flow Rate 15 10/29/24 14:07 BMI result Body Mass Index 30.2 Const: Other: intubated, minimally sedated; no appreciable purposeful movements General: no acute distress HEENT: Head: Yes normal to inspection, Yes normocephalic and Yes atraumatic Eyes: General: appearance normal, both eyes and all related structures Neck: Neck: Yes normal visual inspection, Yes full ROM, Yes no meningeal signs, Yes trachea midline and Yes supple Chest: Chest palpation & inspection: normal inspection of the chest Resp: Other: no appreciable rales, rhonchi, wheezing Effort & Inspection: normal respiratory effort Cardio: Rate: regular rate Rhythm: regular rhythm GI: Inspection: Yes normal to inspection, No Abdominal wall edema and No distended Palpation (GI): Soft to palpation, not firm, nontender, no guarding and not rigid Skin: General skin exam: no rashes or lesions noted Neuro: General: tone normal and no meningeal signs Extrem: Other: appreciable 1+ pitting edema to bilateral shins General: Yes normal to inspection, Yes full ROM and Yes capillary refill normal Psych: Other: unable to assess Objective Data Labs 11/07/24 05:28 11/07/24 05:28 Labs: Laboratory Results - last 24 hr 11/06/24 11/06/24 11/06/24 10:00 11:57 17:57 WBC RBC Hgb Hct MCV MCH MCHC RDW Plt Count MPV Immature Gran % (Auto) Neut % (Auto) Lymph % (Auto) [place] % (Auto) Eos % (Auto) Baso % (Auto) Lymph # (Auto) [place] # (Auto) Eos # (Auto) Baso # (Auto) Abs Immat Gran (auto) Absolute Neuts (auto) Absolute Nucleated RBC Nucleated RBC % (auto) VBG pH VBG pCO2 VBG pO2 VBG HCO3 VBG O2 Saturation VBG Base Excess Sodium Potassium Chloride Carbon Dioxide Anion Gap BUN Creatinine Estim Creat Clear Calc Estimated GFR POC Glucose 215 H 205 H Random Glucose Calcium Phosphorus Magnesium Albumin Random Vancomycin 17.8 11/06/24 11/06/24 11/07/24 18:13 23:54 05:27 WBC RBC Hgb Hct MCV MCH MCHC RDW Plt Count MPV Immature Gran % (Auto) Neut % (Auto) Lymph % (Auto) [place] % (Auto) Eos % (Auto) Baso % (Auto) Lymph # (Auto) [place] # (Auto) Eos # (Auto) Baso # (Auto) Abs Immat Gran (auto) Absolute Neuts (auto) Absolute Nucleated RBC Nucleated RBC % (auto) VBG pH VBG pCO2 VBG pO2 VBG HCO3 VBG O2 Saturation VBG Base Excess Sodium 143 Potassium 3.7 Chloride 103 Carbon Dioxide 32 H Anion Gap 12 BUN 18 H Creatinine 0.57 Estim Creat Clear Calc 125.7 Estimated GFR > 60 POC Glucose 206 H 184 H Random Glucose 222 H Calcium 7.9 L D Phosphorus 2.7 Magnesium 1.5 L Albumin Random Vancomycin 11/07/24 11/07/24 05:28 05:32 WBC 17.3 H RBC 3.09 L Hgb 7.9 L Hct 26.0 L MCV 84.1 MCH 25.6 L MCHC 30.4 L RDW 16.6 H Plt Count 70 L D MPV 12.1 Immature Gran % (Auto) 0.9 H Neut % (Auto) 73.6 H Lymph % (Auto) 17.8 L [place] % (Auto) 5.0 Eos % (Auto) 2.5 Baso % (Auto) 0.2 Lymph # (Auto) 3.1 [place] # (Auto) 0.9 Eos # (Auto) 0.4 Baso # (Auto) 0.0 Abs Immat Gran (auto) 0.15 H Absolute Neuts (auto) 12.7 H Absolute Nucleated RBC 0.020 H Nucleated RBC % (auto) 0.1 VBG pH 7.62 H* VBG pCO2 42 VBG pO2 43 VBG HCO3 43 H VBG O2 Saturation 74.0 VBG Base Excess 20.4 Sodium 143 Potassium 3.2 L Chloride 100 Carbon Dioxide 34 H Anion Gap 12 BUN 19 H Creatinine 0.56 Estim Creat Clear Calc 122.3 Estimated GFR > 60 POC Glucose Random Glucose 204 H Calcium 8.0 L Phosphorus 2.1 L Magnesium 1.6 Albumin 2.7 L Random Vancomycin Microbiology Microbiology Results: Microbiology 11/02/24 09:16 Groin, Right Gram Stain - Final 11/02/24 09:16 Groin, Right Routine Culture - Final Proteus mirabilis So albicans 10/29/24 15:29 Blood - Venous Blood Culture - Final No growth after 5 days. 10/29/24 14:42 Blood - Venous Blood Culture - Final No growth after 5 days. 10/29/24 Unknown Urine Catheterized - Kelly Catheter Urine Culture - Final Escherichia coli Progress Note: A&P Assessment and plan (1) Septic shock: Status: Acute (2) UTI (urinary tract infection): Status: Acute Plan Patient is a 79 Y M w/ diabetes mellitus, CHF c/b paroxysmal atrial fibrillation, idiopathic pulmonary fibrosis, prostate cancer c/b recurrent ESBL UTI, and recent pneumonia necessitating admission, presenting to emergency department on 10/29 w/ encephalopathy and purulent urine, c/f UTI c/b septic shock; ICU course c/b shock c/b multi-system organ failure including respiratory failure, intubated on 11/01 N: intubated, sedated w/ propofol gtt, wean as tolerated CV: septic shock, norepinephrine and vasopressin gtt; paroxysmal atrial fibrillation, home apixaban when possible R: acute hypoxic respiratory failure, intubated 11/01, wean as tolerated; idiopathic pulmonary fibrosis GI: tube feeds : volume overload; furosemide gtt; to closely monitor renal indices, electrolyte H: thrombocytopenia, to hold chemical DVT prophylaxis until PLT > 100; mechanical devices ID: ESBL UTI c/b septic shock, on meropenem, empiric vancomycin E: diabetes mellitus; insulin regimen Quality Stroke Does the patient have a stroke diagnosis?: No VTE Prior VTE?: No VTE Risk Level:: Medical - moderate - high VTE Device Contraindication: N/A - Device Ordered VTE Drug Contraindication: Treatment Not Tolerated
[2024-11-07] MEDS: 0.9 % Sodium Chloride Flush 3 ML SYRINGE IVFLUSH (08:42)
[2024-11-07] MEDS: Calcium Chloride 1 GM/10 ML SYRINGE IVPUSH (09:09)
[2024-11-07] MEDS: Potassium Phosphate/NS 15 MMOL/250 ML PLAST..BAG 62.5 MMOL IV (10:03)
[2024-11-07] MEDS: acetaZOLAMIDE sodium 500 MG VIAL 250 MG IVPUSH (10:05)
[2024-11-07 10:42] LABS: Vancomycin Random 19.4 mcg/mL (15-20)
--- NOTE | 2024-11-07 10:56 | MHC.CLN ---
F/U PT REMAINS INTUBATED AND SEDATED.. RECEIVING TUBE FEEDING. TOLERATING TUBE FEEDING AT MAX GOAL RATE, GLUCERNA AT 90 ML PER HOUR. TUBE FEEDING PROVIDES 2319 KCALS WITH SEDATION (31.8 KCALS/KG IBW), 90G PROTEIN (1.2G/KG IBW), 1842ML FREE WATER FROM FORMULA (25ML/KG IBW). MONITOR TOLERANCE AND LYTES. SKIN WITH DTI TO R SACRUM AND L SACRUM. MONITOR SKIN INTEGRITY.
[2024-11-07 12:06] LABS: Glucose, Whole Blood 229 mg/dL (60-115)
[2024-11-07] MEDS: propofoL 1,000 MG/100 ML VIAL 6.01 MG IVCONT (12:39)
--- NOTE | 2024-11-07 13:07 | MHC.CM.PN ---
Pt is maintained on ventilatory support in ICU: Pt is a LTC resident of [facility] - clinical updates remitted for facility review. Family interested in other facilities: some referrals have been made. CM to follow for finalization of d/c needs.
[2024-11-07] MEDS: Norepinephrine Bitartrate/NS 32 MG/250 ML PLAST..BAG 7.18 MG IVCONT (16:51)
[2024-11-07] MEDS: Furosemide 200 MG in 0.9 % Sodium Chloride 80 ML IVCONT (16:55)
[2024-11-07 17:23] LABS: Glucose, Whole Blood 189 mg/dL (60-115)
--- NOTE | 2024-11-07 17:24 | PC.NURSE ---
Assumed care of patient 0700 sedation vacation started 10:45, propofol gtt paused. 11:35 PSV trial started 12/5.0, 40% by RT. Patient volumes improved compared to previous trials. Volumes ~250-300. RR 35-36. Pt coached for calm slower breathing, relaxation techniques 12:38 Patient RR increased, volumes decreased. Pt unable to slow RR. RT switched back to ACVC settings 18/420/5.0/40% Patient provided full bed bath 16:00. Pt turned and repositoned Q2HR. High fall precautions in place
--- NOTE | 2024-11-07 18:29 | PC.NURSE ---
A-line dressing changed. Line to remain per Dr Chau as patient is on two pressors. Surrounding skin intact
[2024-11-07 18:47] LABS: Anion Gap 12 (12-20); Blood Urea Nitrogen 19 mg/dL (9-16); Calcium 8.5 mg/dL (8.4-10.2); Carbon Dioxide 40 mmol/L (22-29); Chloride 95 mmol/L (96-108); Creatinine Clr Calc Pharmacy 122.3; Estimated Glomerular Filt Rate > 60; Glucose Random 213 mg/dL (60-115); Magnesium 1.6 mg/dL (1.6-2.6); Phosphorus 2.9 mg/dL (2.7-4.5); Potassium 3.2 mmol/L (3.3-5.1); Sodium 144 mmol/L (135-145)
[2024-11-07] MEDS: vancomycin HCL 750 MG in 0.9 % Sodium Chloride 250 ML 265 MG IV (19:40)
[2024-11-07] MEDS: propofoL 1,000 MG/100 ML VIAL 24.02 MG IVCONT (23:39)
[2024-11-08] VITALS (38 sets, daily range): BP systolic 79–135; BP diastolic 46–90; PULSE 78–107; RESP 18–22; TEMP 34.1–38.2; O2SAT 89–100; BMI 30.2
[2024-11-08 00:18] LABS: Glucose, Whole Blood 239 mg/dL (60-115)
[2024-11-08] MEDS: Insulin Lispro 100 UNIT/ML 3 ML VIAL SUBCUT ×5 (00:25→23:37)
[2024-11-08] MEDS: Meropenem 1 GM VIAL IVPUSH ×3 (02:35→17:40)
[2024-11-08] MEDS: propofoL 1,000 MG/100 ML VIAL 18.02 MG IVCONT (03:30)
[2024-11-08 05:28] LABS: VBG Base Excess 21.5 mmol/L; VBG HCO3 46 mmol/L (22-26); VBG pCO2 53 mmHg; VBG pH 7.54 (7.32-7.43); VBG pO2 47 mmHg
[2024-11-08 05:30] LABS: Venous Blood Gas Refer to POC result
[2024-11-08 05:48] LABS: MANUAL DIFF FLAG NO
[2024-11-08] MEDS: Vasopressin 20 UNIT/100 ML INFUS..BTL 12 UNIT IVCONT ×3 (05:50→21:28)
[2024-11-08] MEDS: Pantoprazole Sodium 40 MG/10 ML VIAL IVPUSH (05:50)
[2024-11-08 06:09] LABS: Anion Gap 15 (12-20); Blood Urea Nitrogen 18 mg/dL (9-16); Calcium 8.2 mg/dL (8.4-10.2); Carbon Dioxide 37 mmol/L (22-29); Chloride 93 mmol/L (96-108); Creatinine Clr Calc Pharmacy 116.1; Estimated Glomerular Filt Rate > 60; Glucose Random 213 mg/dL (60-115); Magnesium 1.6 mg/dL (1.6-2.6); Phosphorus 2.7 mg/dL (2.7-4.5); Sodium 142 mmol/L (135-145)
[2024-11-08 06:10] LABS: Glucose, Whole Blood 188 mg/dL (60-115)
[2024-11-08 06:14] LABS: Basophils Percent Auto 0.2 % (0-2); Eosinophils Absolute Auto 0.6 X10*3/uL (0.0-0.4); Eosinophils Percent Auto 3.8 % (0-4); Hematocrit 24.3 % (42.0-52.0); Hemoglobin 7.5 g/dl (14.0-18.0); Imm Gran Abs Auto 0.11 X10*3/uL (0.00-0.03); Imm Gran Pct Auto 0.7 % (0.0-0.4); Lymphocytes Absolute Auto 3.8 X10*3/uL (1.2-4.9); Lymphocytes Percent Auto 22.4 % (20-40); Mean Corpuscular HGB Conc 30.9 g/dl (31.0-36.0); Mean Corpuscular Hemoglobin 25.6 pg (27.0-33.0); Mean Corpuscular Volume 82.9 fL (80.0-98.0); Mean Platelet Volume 12.7 fL (9.4-12.4); Monocytes Absolute Auto 0.9 X10*3/uL (0.1-1.2); Monocytes Percent Auto 5.4 % (2-11); NRBC Pct Auto 0.2 /100WBC (0.0-0.2); Neutrophils Absolute Auto 11.4 x10*3/uL (2.0-8.3); Neutrophils Percent Auto 67.5 % (45-73); Red Blood Count 2.93 X10*6/uL (4.60-5.80); Red Cell Distribution Width 16.6 % (11.0-16.0); White Blood Count 16.9 X10*3/uL (4.8-10.8)
[2024-11-08 06:15] LABS: Platelet Count 88 X10*3/uL (160-400)
[2024-11-08] MEDS: Potassium Chloride/H20 40 MEQ/100 ML PIGGYBACK 50 MEQ IV ×2 (06:31→20:04)
[2024-11-08] MEDS: Albumin Human 25 % 50 ML 100 ML IV ×3 (07:30→12:57)
[2024-11-08] MEDS: Chlorhexidine Gluc Oral Rinse 15 ML MOUTHWASH BUCCAL ×2 (07:39→20:10)
[2024-11-08] MEDS: 0.9 % Sodium Chloride Flush 3 ML SYRINGE IVFLUSH ×3 (07:39→20:34)
--- NOTE | 2024-11-08 08:39 | PM.CCPN ---
Subjective Subjective Date of Service: 11/08/24 Interval History: no significant overnight events Critical Care Time (minutes): 60 Physical Exam Vital Signs: Vital Signs: Last Vital Signs Temp 100.4 F 11/08/24 08:00 Pulse 91 11/08/24 08:00 Resp 21 H 11/08/24 08:00 BP 131/61 11/08/24 08:00 Pulse Ox 90 L 11/08/24 08:00 O2 Del Method Mechanical Ventil ation 11/08/24 08:00 O2 Flow Rate 10 10/31/24 14:00 FiO2 30 11/08/24 08:00 Oxygen Flow Rate 15 10/29/24 14:07 BMI result Body Mass Index 30.2 Const: Other: intubated, sedated; no appreciable purposeful movements HEENT: Head: Yes normal to inspection, Yes normocephalic and Yes atraumatic Eyes: General: appearance normal, both eyes and all related structures Neck: Neck: Yes normal visual inspection, Yes full ROM, Yes no meningeal signs, Yes trachea midline and Yes supple Chest: Chest palpation & inspection: normal inspection of the chest Resp: Other: no appreciable overt rales, rhonchi, wheezing Effort & Inspection: normal respiratory effort Cardio: Rate: regular rate Rhythm: regular rhythm GI: Inspection: Yes normal to inspection, No Abdominal wall edema and No distended Palpation (GI): Soft to palpation, not firm, nontender, no guarding and not rigid Skin: General skin exam: no rashes or lesions noted Neuro: General: tone normal and no meningeal signs Extrem: Other: appreciable 1+ pitting edema to bilateral shins General: Yes normal to inspection, Yes full ROM and Yes capillary refill normal Psych: Other: unable to assess Objective Data Labs 11/08/24 05:24 11/08/24 05:25 Labs: Laboratory Results - last 24 hr 11/07/24 11/07/24 11/07/24 10:24 11:54 17:17 WBC RBC Hgb Hct MCV MCH MCHC RDW Plt Count MPV Immature Gran % (Auto) Neut % (Auto) Lymph % (Auto) Mellette % (Auto) Eos % (Auto) Baso % (Auto) Lymph # (Auto) Mellette # (Auto) Eos # (Auto) Baso # (Auto) Abs Immat Gran (auto) Absolute Neuts (auto) Absolute Nucleated RBC Nucleated RBC % (auto) VBG pH VBG pCO2 VBG pO2 VBG HCO3 VBG O2 Saturation VBG Base Excess Sodium Potassium Chloride Carbon Dioxide Anion Gap BUN Creatinine Estim Creat Clear Calc Estimated GFR POC Glucose 229 H 189 H Random Glucose Calcium Phosphorus Magnesium Albumin Random Vancomycin 19.4 11/07/24 11/08/24 11/08/24 18:06 00:14 05:24 WBC 16.9 H RBC 2.93 L Hgb 7.5 L Hct 24.3 L MCV 82.9 MCH 25.6 L MCHC 30.9 L RDW 16.6 H Plt Count 88 L D MPV 12.7 H Immature Gran % (Auto) 0.7 H Neut % (Auto) 67.5 Lymph % (Auto) 22.4 Mellette % (Auto) 5.4 Eos % (Auto) 3.8 Baso % (Auto) 0.2 Lymph # (Auto) 3.8 Mellette # (Auto) 0.9 Eos # (Auto) 0.6 H Baso # (Auto) 0.0 Abs Immat Gran (auto) 0.11 H Absolute Neuts (auto) 11.4 H Absolute Nucleated RBC 0.030 H Nucleated RBC % (auto) 0.2 VBG pH 7.54 H VBG pCO2 53 VBG pO2 47 VBG HCO3 46 H VBG O2 Saturation 76.0 VBG Base Excess 21.5 Sodium 144 Potassium 3.2 L Chloride 95 L Carbon Dioxide 40 H* Anion Gap 12 BUN 19 H Creatinine 0.56 Estim Creat Clear Calc 122.3 Estimated GFR > 60 POC Glucose 239 H Random Glucose 213 H Calcium 8.5 D Phosphorus 2.9 Magnesium 1.6 Albumin Random Vancomycin 11/08/24 11/08/24 05:25 06:03 WBC RBC Hgb Hct MCV MCH MCHC RDW Plt Count MPV Immature Gran % (Auto) Neut % (Auto) Lymph % (Auto) Mellette % (Auto) Eos % (Auto) Baso % (Auto) Lymph # (Auto) Mellette # (Auto) Eos # (Auto) Baso # (Auto) Abs Immat Gran (auto) Absolute Neuts (auto) Absolute Nucleated RBC Nucleated RBC % (auto) VBG pH VBG pCO2 VBG pO2 VBG HCO3 VBG O2 Saturation VBG Base Excess Sodium 142 Potassium 3.0 L Chloride 93 L Carbon Dioxide 37 H Anion Gap 15 BUN 18 H Creatinine 0.59 Estim Creat Clear Calc 116.1 Estimated GFR > 60 POC Glucose 188 H Random Glucose 213 H Calcium 8.2 L Phosphorus 2.7 Magnesium 1.6 Albumin 3.0 L Random Vancomycin Microbiology Microbiology Results: Microbiology 11/02/24 09:16 Groin, Right Gram Stain - Final 11/02/24 09:16 Groin, Right Routine Culture - Final Proteus mirabilis So albicans 10/29/24 15:29 Blood - Venous Blood Culture - Final No growth after 5 days. 10/29/24 14:42 Blood - Venous Blood Culture - Final No growth after 5 days. 10/29/24 Unknown Urine Catheterized - Kelly Catheter Urine Culture - Final Escherichia coli Progress Note: A&P Assessment and plan (1) Septic shock: Status: Acute (2) UTI (urinary tract infection): Status: Acute Plan Patient is a 79 Y M w/ diabetes mellitus, CHF c/b paroxysmal atrial fibrillation, idiopathic pulmonary fibrosis, prostate cancer c/b recurrent ESBL UTI, and recent pneumonia necessitating admission, presenting to emergency department on 10/29 w/ encephalopathy and purulent urine, c/f UTI c/b septic shock; ICU course c/b shock c/b multi-system organ failure including respiratory failure, intubated on 11/01 N: intubated, sedated w/ propofol gtt, wean as tolerated CV: septic shock, norepinephrine and vasopressin gtt, wean as tolerated; paroxysmal atrial fibrillation, home apixaban when possible R: acute hypoxic respiratory failure, intubated 11/01, wean as tolerated; idiopathic pulmonary fibrosis GI: tube feeds : volume overload; furosemide gtt, acetazolamide; to closely monitor renal indices, electrolyte H: thrombocytopenia, to hold chemical DVT prophylaxis until PLT > 100; mechanical devices ID: [id number] UTI c/b septic shock, on meropenem, empiric vancomycin E: diabetes mellitus; insulin regimen S: daily updates given to patient's son Quality Stroke Does the patient have a stroke diagnosis?: No VTE Prior VTE?: No VTE Risk Level:: Medical - moderate - high VTE Device Contraindication: N/A - Device Ordered VTE Drug Contraindication: Treatment Not Tolerated
--- NOTE | 2024-11-08 09:54 | MHC.CLN ---
F/U PT REMAINS INTUBATED, NO PROPOFOL. TOLERATING TUBE FEEDING AT MAX GOAL RATE, GLUCERNA AT 90 ML PER HOUR. TUBE FEEDING PROVIDES 2160KCALS (30KCALS/KG IBW), 90G PROTEIN (1.2G/KG IBW), 1842ML FREE WATER FROM FORMULA (25ML/KG IBW). MONITOR TF TOLERANCE AND LYTES. SKIN WITH DTI TO R SACRUM AND L SACRUM. MONITOR SKIN INTEGRITY.
[2024-11-08 11:20] LABS: Glucose, Whole Blood 242 mg/dL (60-115)
--- NOTE | 2024-11-08 11:28 | W.MHC.ACPN ---
Advanced Care Planning Note Advanced Care Planning Note Discussed with: family member(s) Time spent (in minutes): 15 Narrative: I met Mr. Perales's son at the bedside today and offered updates and clarifications; we discussed next possible steps in care; we discussed that though Mr. Perales has had a breathing tube for 7 days, he is failing breathing trials, that we generally do not recommend breathing tubes to be in place for longer than 2 weeks and generally recommend tracheostomy at that time if within patient's philosophy of care; Mr. Perales's son reports he is familiar with tracheostomy; moreover, he believes tracheostomy would be within Mr. Perales's philosophy of care, though he would like to take it one day at a time; I encouraged him to have a more in-depth conversation about the pros and cons of tracheostomy, though Mr. Perales's son expressed that he understands and again prefers to take it one day at a time; I stated I will continue to give him updates and engage in conversations about care on a daily basis, ideally in person Problems Discussed (1) Septic shock: (2) UTI (urinary tract infection):
[2024-11-08] MEDS: propofoL 1,000 MG/100 ML VIAL 6.01 MG IVCONT (11:35)
[2024-11-08] MEDS: acetaZOLAMIDE sodium 500 MG VIAL IVPUSH (12:57)
[2024-11-08] MEDS: Furosemide 200 MG in 0.9 % Sodium Chloride 80 ML IVCONT (12:59)
[2024-11-08] MEDS: Calcium Chloride 1 GM/10 ML SYRINGE IVPUSH (13:01)
--- NOTE | 2024-11-08 15:00 | HO.WOUND ---
Wound Consult: Follow up 79yr old?male admitted to [facility] [place] on 10/29/24 - See progress notes and H&P for detailed history.? Wound consult follow up for multiple wounds. Chart review reveals pt remains critically ill. Per Dr. Chau Chart details 79 Y M w/ diabetes mellitus, CHF c/b paroxysmal atrial fibrillation, idiopathic pulmonary fibrosis, prostate cancer c/b recurrent ESBL UTI, and recent pneumonia necessitating admission, presenting to emergency department on 10/29 w/ encephalopathy and purulent urine, c/f UTI c/b septic shock; ICU course c/b shock c/b multi-system organ failure including respiratory failure, intubated on 11/01 and continues on pressor support along with thrombocytopenia. Nayan was also seen by Dr. Razo on 11/03/24 and she documented the following based on his right groin wound. 79 year old male multiple med issues in ICU with septic shock treated with pressors and fluids initially via catheter in right groin now switched to the neck- skin breakdown in the groin where the catheter was anchored - due to skin necrosis from tension, edema, moisture and pressor support. Overall his wounds continue to evolve initially they were classified in some cases as pressure injuries however given his current clinical picture these wounds and characteristics are consistent with Ischemia / Acute Skin Failure and thrombocytopenia presentations. Acute Skin Failure can be caused by ischemia secondary to poor perfusion related to septic shock with multiorgan faliure.? The patients ICU stay is marked by septic shock necessitating vasopressors, respiratory failure necessitating ventilatory support. Acute Skin Failure may occur despite the implementation of proper preventative measures.? Most recently his face was noted for injury after Et Tube Mehta was changed. See photo below - The purple maroon pigmentation is not consistent with pressure it is likely related to Acute skin failure vs Thrombocytopenia. Both arms are noted for significant Purpura - see photo below. The Right Cheek is noted to MARSI (Medical Adhesive Related Skin Injury) - the open tissue is scattered and appears to correlate with adhesive and not pressure. Right Cheek Etiology - MARSI (Medical Adhesive Related Skin Injury) scattered open tissue purple areas consistent with purpura lab values reveal thrombocytopenia Recommendations: Apply Skin prep allow to dry. Keep free to device and adhesives at this time. Right Groin Wound Bed: two sites with improving yellow slough Drainage / Odor: None Edges: ? well defined Idalmis wound:Intact - Moisture noted with in skin fold No Induration, Fluctuance or Warmth noted per direct care nurse Goals of Treatment: ? Durafiber AG and occlusive dressing. Upper Lip Etiology: Friction - scattered areas of scab consistent with friction and not pressure - scab are stable at this time no topical recomendations but to continue with oral care per protocol. Right Arm with purpura - intact nonblanchable tissue - no topical interventions needed. Left Sacrum Etiology: ??Ischemia vs Acute Skin Failure - Previously documented as Resurfacing - Stage 2 Pressure Injury Present on Admission Wound Bed: red maroon purple tissue with epidermal layer lifting - eschar developing Edges: ? irregular Goals of Treatment: ? Barrier cream and off load pressure Right Sacrum Etiology: ??Ischemia vs Acute Skin Failure - Previously documented as Deep Tissue Injury Present on Admission Wound Bed: red maroon intact nonblanchable tissue Drainage / Odor: None Edges: ? irregular Goals of Treatment: ?barrier cream foam dressing and off load pressure Right Back - continues with Irregular skin pigmentation - not consistent with pressure - remain intact - recommend continue with foam dressing to protect from friction. Bilateral Groin / Skin folds - Ischemia vs Acute Skin Failure - Previously documented as MASD Intertrigo (Moisture Associated Skin Damage - base of skin fold open tissue noted currently appears to be transitioning to eschar) - Recommend barrier cream to protect from moisture and friction and aid in autolytic debridement. Patient is on a ARNOLD mattress, Q2hr turns are documented, preventative foams and heel protector boots are in use along with wedges for off loading pressure. Recommendations: 1. Turn and Reposition every 2 hours and as needed for patient comfort.? Use pillows or wedges to support off loading positions. 2. Off Load all bony prominences with use of pillows and heel boots if needed.? Apply Preventative foams where needed. ? 3. Monitor for incontinence and moisture control, use barrier creams when needed for prevention and treatment. 4. Provide adequate and supplemental nutrition.? 5. Continue low air loss mattress. 6. When applicable maintain blood glucose levels per Providers order. 7. Sacrum - Off Load Pressure with Q2 hr turns and use of pillows - Cleanse with PH balance spray or wipes, pat dry. ?Apply thin layer of Triad to sacrum and buttock - only pat and dab no scrub and rub when soiling occurs. Reapply thin layer PRN after each episode of incontinence. May cover with foam dressing. 8. Right Back - Apply Skin prep allow to dry. Apply foam dressing peel back and assess Q shift and Change every 5 days and PRN. 9. Posterior Groin - Cleanse with Ph balances wipes, pat dry. Apply Barrier cream to groin twice daily and prn for incontinence. 10. Right Anterior Groin: Cleanse with NS moist gauze, pat dry. Apply skin prep to periwound. Cover wound bed with Durafiber AG followed by dry gauze occlusive dressing. Change every other day. Given the area is with in his groin and skin fold monitor for saturation and change PRN. 11. Right Face - Apply Skin prep allow to dry. Do not apply adhesive or device to area. Re-consult wound care Nurse for wound deterioration or wound changes.
--- NOTE | 2024-11-08 15:22 | MHC.CM.PN ---
Pt continues care in ICU: on ventilatory support and not making significant clinical progress. discussed care w/pt's son who would like to continue with current care management. Pt is a LTC resident of [facility]. CM to follow for changes in d/c planning
[2024-11-08 17:33] LABS: Glucose, Whole Blood 198 mg/dL (60-115)
[2024-11-08 18:42] LABS: Vancomycin Random 17.6 mcg/mL (15-20)
--- NOTE | 2024-11-08 18:52 | HE.PHANOTE ---
RE: VANCO DOSING Trough came back as 17.6 mg/L. Continue with dose of 750 mg q24h, next trough is scheduled for 11/09/24 @1800.
[2024-11-08 18:56] LABS: Anion Gap 12 (12-20); Blood Urea Nitrogen 19 mg/dL (9-16); Calcium 8.5 mg/dL (8.4-10.2); Carbon Dioxide 42 mmol/L (22-29); Chloride 91 mmol/L (96-108); Creatinine Clr Calc Pharmacy 126.9; Estimated Glomerular Filt Rate > 60; Glucose Random 209 mg/dL (60-115); Magnesium 1.7 mg/dL (1.6-2.6); Phosphorus 2.8 mg/dL (2.7-4.5); Potassium 2.7 mmol/L (3.3-5.1); Sodium 142 mmol/L (135-145)
[2024-11-08] MEDS: vancomycin HCL 750 MG in 0.9 % Sodium Chloride 250 ML 265 MG IV (20:09)
[2024-11-08] MEDS: Potassium Chloride Packet 20 MEQ PACKET 40 MEQ PO (20:12)
[2024-11-08] MEDS: propofoL 1,000 MG/100 ML VIAL 12.01 MG IVCONT (20:16)
[2024-11-08] MEDS: Norepinephrine Bitartrate/NS 32 MG/250 ML PLAST..BAG 9.57 MG IVCONT (22:55)
[2024-11-08 23:40] LABS: Glucose, Whole Blood 222 mg/dL (60-115)
[2024-11-09] VITALS (46 sets, daily range): BP systolic 91–139; BP diastolic 41–88; PULSE 80–125; RESP 18–29; TEMP 35–38.4; O2SAT 89–97; BMI 31.6
[2024-11-09] MEDS: propofoL 1,000 MG/100 ML VIAL 18.02 MG IVCONT (00:52)
[2024-11-09] MEDS: Meropenem 1 GM VIAL IVPUSH ×3 (02:48→23:05)
[2024-11-09] MEDS: Furosemide 200 MG in 0.9 % Sodium Chloride 80 ML IVCONT ×2 (05:03→23:02)
[2024-11-09 05:27] LABS: Glucose, Whole Blood 177 mg/dL (60-115)
[2024-11-09] MEDS: Insulin Lispro 100 UNIT/ML 3 ML VIAL SUBCUT ×3 (05:37→18:46)
[2024-11-09] MEDS: Pantoprazole Sodium 40 MG/10 ML VIAL IVPUSH (05:37)
[2024-11-09 05:48] LABS: Venous Blood Gas Refer to POC result
[2024-11-09 05:51] LABS: VBG Base Excess 21.5 mmol/L; VBG HCO3 47 mmol/L (22-26); VBG pCO2 58 mmHg; VBG pH 7.51 (7.32-7.43); VBG pO2 65 mmHg
[2024-11-09 06:03] LABS: Mean Corpuscular HGB Conc 30.4 g/dl (31.0-36.0); PLT CLUMP 1; SCAN SMEAR FLAG 1
[2024-11-09 06:05] LABS: Basophils Absolute Auto 0.1 X10*3/uL (0.0-0.2); Basophils Percent Auto 0.4 % (0-2); Eosinophils Absolute Auto 0.7 X10*3/uL (0.0-0.4); Eosinophils Percent Auto 4.2 % (0-4); Hematocrit 24.7 % (42.0-52.0); Hemoglobin 7.5 g/dl (14.0-18.0); Imm Gran Abs Auto 0.12 X10*3/uL (0.00-0.03); Imm Gran Pct Auto 0.7 % (0.0-0.4); Lymphocytes Absolute Auto 4.1 X10*3/uL (1.2-4.9); MANUAL DIFF FLAG NO; Mean Corpuscular Hemoglobin 25.6 pg (27.0-33.0); Mean Corpuscular Volume 84.3 fL (80.0-98.0); Mean Platelet Volume 12.5 fL (9.4-12.4); Monocytes Percent Auto 6.1 % (2-11); NRBC Pct Auto 0.1 /100WBC (0.0-0.2); Neutrophils Absolute Auto 10.4 x10*3/uL (2.0-8.3); Neutrophils Percent Auto 63.6 % (45-73); Platelet Count 110 X10*3/uL (160-400); Red Blood Count 2.93 X10*6/uL (4.60-5.80); Red Cell Distribution Width 16.9 % (11.0-16.0); White Blood Count 16.3 X10*3/uL (4.8-10.8)
[2024-11-09] MEDS: propofoL 1,000 MG/100 ML VIAL 12.01 MG IVCONT ×3 (06:27→19:27)
[2024-11-09 06:30] LABS: Albumin Level 3.1 g/dL (3.5-5.0); Anion Gap 15 (12-20); Blood Urea Nitrogen 21 mg/dL (9-16); Calcium 8.5 mg/dL (8.4-10.2); Carbon Dioxide 38 mmol/L (22-29); Chloride 93 mmol/L (96-108); Creatinine Clr Calc Pharmacy 122.8; Estimated Glomerular Filt Rate > 60; Glucose Random 177 mg/dL (60-115); Magnesium 1.7 mg/dL (1.6-2.6); Phosphorus 2.5 mg/dL (2.7-4.5); Potassium 3.5 mmol/L (3.3-5.1); Sodium 142 mmol/L (135-145)
[2024-11-09] MEDS: Potassium Chloride/H20 40 MEQ/100 ML PIGGYBACK 50 MEQ IV (06:53)
[2024-11-09] MEDS: Calcium Chloride 1 GM/10 ML SYRINGE IVPUSH (07:23)
[2024-11-09] MEDS: 0.9 % Sodium Chloride Flush 3 ML SYRINGE IVFLUSH ×3 (07:23→23:06)
[2024-11-09] MEDS: Chlorhexidine Gluc Oral Rinse 15 ML MOUTHWASH BUCCAL ×3 (08:09→20:02)
--- NOTE | 2024-11-09 08:41 | P.PNCC_ITS ---
Subjective Subjective Date of Service: 11/09/24 Interval History: no significant overnight events Critical Care Time (minutes): 60 Physical Exam 2 Vital Signs: Vital Signs: Last Vital Signs Temp 99.9 F 11/09/24 08:00 Pulse 111 H 11/09/24 08:32 Resp 18 11/09/24 08:00 BP 116/80 11/09/24 08:32 Pulse Ox 92 11/09/24 08:00 O2 Del Method Nasal Cannula wit h Capnography 11/09/24 08:00 O2 Flow Rate 10 10/31/24 14:00 FiO2 30 11/09/24 08:00 Oxygen Flow Rate 15 10/29/24 14:07 BMI result Body Mass Index 31.6 Const: Other: intubated, sedated; appreciable spontaneous movements; no appreciable purposeful movements General: no acute distress and well developed HEENT: Head: Yes normal to inspection, Yes normocephalic and Yes atraumatic Eyes: General: appearance normal, both eyes and all related structures Neck: Neck: Yes normal visual inspection, Yes full ROM, Yes no meningeal signs, Yes trachea midline and Yes supple Chest: Chest palpation & inspection: normal inspection of the chest Resp: Other: no appreciable overt rales, rhonchi, wheezing Effort & Inspection: normal respiratory effort Cardio: Rate: tachycardic Rhythm: abnormal rhythm GI: Inspection: Yes normal to inspection, No Abdominal wall edema and No distended Palpation (GI): Soft to palpation, not firm, nontender, no guarding and not rigid Skin: General skin exam: no rashes or lesions noted Neuro: General: tone normal, moves all extremities and no meningeal signs Extrem: General: Yes normal to inspection, Yes full ROM, Yes capillary refill normal and Yes no clubbing, cyanosis or edema Psych: Other: unable to assess Objective Data Labs 11/09/24 05:26 11/09/24 05:26 Labs: Laboratory Results - last 24 hr 11/08/24 11/08/24 11/08/24 11:15 17:28 18:04 WBC RBC Hgb Hct MCV MCH MCHC RDW Plt Count MPV Immature Gran % (Auto) Neut % (Auto) Lymph % (Auto) [place]clain % (Auto) Eos % (Auto) Baso % (Auto) Lymph # (Auto) [place]cl[place] # (Auto) Eos # (Auto) Baso # (Auto) Abs Immat Gran (auto) Absolute Neuts (auto) Absolute Nucleated RBC Nucleated RBC % (auto) VBG pH VBG pCO2 VBG pO2 VBG HCO3 VBG O2 Saturation VBG Base Excess Sodium 142 Potassium 2.7 L* Chloride 91 L Carbon Dioxide 42 H* Anion Gap 12 BUN 19 H Creatinine 0.54 Estim Creat Clear Calc 126.9 Estimated GFR > 60 POC Glucose 242 H 198 H Random Glucose 209 H Calcium 8.5 Phosphorus 2.8 Magnesium 1.7 Albumin Random Vancomycin 17.6 11/08/24 11/09/24 11/09/24 23:28 05:19 05:26 WBC 16.3 H RBC 2.93 L Hgb 7.5 L Hct 24.7 L MCV 84.3 MCH 25.6 L MCHC 30.4 L RDW 16.9 H Plt Count 110 L MPV 12.5 H Immature Gran % (Auto) 0.7 H Neut % (Auto) 63.6 Lymph % (Auto) 25.0 Mcclain % (Auto) 6.1 Eos % (Auto) 4.2 H Baso % (Auto) 0.4 Lymph # (Auto) 4.1 [place]clain # (Auto) 1.0 Eos # (Auto) 0.7 H Baso # (Auto) 0.1 Abs Immat Gran (auto) 0.12 H Absolute Neuts (auto) 10.4 H Absolute Nucleated RBC 0.020 H Nucleated RBC % (auto) 0.1 VBG pH VBG pCO2 VBG pO2 VBG HCO3 VBG O2 Saturation VBG Base Excess Sodium 142 Potassium 3.5 D Chloride 93 L Carbon Dioxide 38 H Anion Gap 15 BUN 21 H Creatinine 0.57 Estim Creat Clear Calc 122.8 Estimated GFR > 60 POC Glucose 222 H 177 H Random Glucose 177 H Calcium 8.5 Phosphorus 2.5 L Magnesium 1.7 Albumin 3.1 L Random Vancomycin 11/09/24 05:47 WBC RBC Hgb Hct MCV MCH MCHC RDW Plt Count MPV Immature Gran % (Auto) Neut % (Auto) Lymph % (Auto) [place]clain % (Auto) Eos % (Auto) Baso % (Auto) Lymph # (Auto) [place]clain # (Auto) Eos # (Auto) Baso # (Auto) Abs Immat Gran (auto) Absolute Neuts (auto) Absolute Nucleated RBC Nucleated RBC % (auto) VBG pH 7.51 H VBG pCO2 58 VBG pO2 65 VBG HCO3 47 H VBG O2 Saturation Not Reportable VBG Base Excess 21.5 Sodium Potassium Chloride Carbon Dioxide Anion Gap BUN Creatinine Estim Creat Clear Calc Estimated GFR POC Glucose Random Glucose Calcium Phosphorus Magnesium Albumin Random Vancomycin Microbiology Microbiology Results: Microbiology 11/02/24 09:16 Groin, Right Gram Stain - Final 11/02/24 09:16 Groin, Right Routine Culture - Final Proteus mirabilis So albicans 10/29/24 15:29 Blood - Venous Blood Culture - Final No growth after 5 days. 10/29/24 14:42 Blood - Venous Blood Culture - Final No growth after 5 days. 10/29/24 Unknown Urine Catheterized - Kelly Catheter Urine Culture - Final Escherichia coli Progress Note: A&P Assessment and plan (1) Septic shock: Status: Acute (2) UTI (urinary tract infection): Status: Acute (3) Acute respiratory failure: Status: Acute Plan Patient is a 79 Y M w/ diabetes mellitus, CHF c/b paroxysmal atrial fibrillation, idiopathic pulmonary fibrosis, prostate cancer c/b recurrent ESBL UTI, and recent pneumonia necessitating admission, presenting to emergency department on 10/29 w/ encephalopathy and purulent urine, c/f UTI c/b septic shock; ICU course c/b shock c/b multi-system organ failure including respiratory failure, intubated on 11/01 N: intubated, sedated w/ propofol gtt, wean as tolerated CV: septic shock, norepinephrine gtt, wean as tolerated; paroxysmal atrial fibrillation, on home apixaban R: acute hypoxic respiratory failure, intubated 11/01, wean as tolerated; of note, failed multiple SBT w/in 1 hour d/t respiratory distress; idiopathic pulmonary fibrosis GI: tube feeds : volume overload; furosemide gtt, acetazolamide; to closely monitor renal indices, electrolyte H: thrombocytopenia, improving; paroxysmal atrial fibrillation, on home apixaban ID: [id number] UTI c/b septic shock, on meropenem, empiric vancomycin E: diabetes mellitus; insulin regimen S: daily updates given to patient's son Quality Stroke Does the patient have a stroke diagnosis?: No VTE Prior VTE?: No VTE Risk Level:: Medical - moderate - high VTE Device Contraindication: N/A - Device Ordered VTE Drug Contraindication: N/A - Med Ordered
[2024-11-09] MEDS: acetaZOLAMIDE sodium 500 MG VIAL IVPUSH (09:11)
[2024-11-09] MEDS: Albumin Human 25 % 50 ML 100 ML IV (09:11)
[2024-11-09] MEDS: Apixaban 5 MG TABLET PO ×2 (09:11→20:02)
--- NOTE | 2024-11-09 09:51 | MHC.CLN ---
F/U PT REMAINS INTUBATED AND SEDATED. TOLERATING TUBE FEEDING AT MAX GOAL RATE, GLUCERNA AT 90 ML PER HOUR. TUBE FEEDING PROVIDES 2160KCALS, 2477KCALS WITH SEDATION (33.9KCALS/KG IBW), 90G PROTEIN (1.2G/KG IBW), 1842ML FREE WATER FROM FORMULA (25ML/KG IBW). MONITOR TF TOLERANCE AND LYTES. SEE WOUND RN NOTE 11/08. SKIN WITH ISCHEMIA/ACUTE SKIN FAILURE. CONTINUE TO FOLLOW WITH TEAM.
[2024-11-09 11:22] LABS: Glucose, Whole Blood 184 mg/dL (60-115)
[2024-11-09] MEDS: Acetaminophen 1,000 MG/100 ML PIGGYBACK 400 MG IV (12:22)
[2024-11-09 18:48] LABS: Glucose, Whole Blood 187 mg/dL (60-115)
[2024-11-09 18:54] LABS: Vancomycin Random 15.6 mcg/mL (15-20)
[2024-11-09 18:58] LABS: Anion Gap 18 (12-20); Blood Urea Nitrogen 27 mg/dL (9-16); Calcium 8.8 mg/dL (8.4-10.2); Carbon Dioxide 34 mmol/L (22-29); Chloride 96 mmol/L (96-108); Creatinine Clr Calc Pharmacy 112.9; Estimated Glomerular Filt Rate > 60; Glucose Random 199 mg/dL (60-115); Magnesium 1.8 mg/dL (1.6-2.6); Phosphorus 3.5 mg/dL (2.7-4.5); Potassium 3.5 mmol/L (3.3-5.1); Sodium 144 mmol/L (135-145)
--- NOTE | 2024-11-09 19:03 | HE.PHANOTE ---
RE: VANCO DOSING Trough came back as 15.6 mg/L. Renal function is stable, concern that if dose stays at 750 mg q24h, it will be subtherapeutic (for indication of bacteremia). Dose is increased to 1000 mg q24h, next trough is scheduled for 11/10/24 @1800.
--- NOTE | 2024-11-09 19:16 | PC.NURSE ---
Addendum entered by Devora Khan RN 11/09/24 19:18: tmax 101.1 today. MD aware. ice packs applied with relief in temp down to 100.6 Original Note: p: alteration in tissue perfusion i: per care plan e: patient remained on levophed to maintain map > 65. titrated as needed. per MD, no need to restart vaso until 0.3 of levophed. lasix drip running, approximately 60-100/hr of urine output. p: alteration in respiratory i: per care plan e: continues to be mechanically ventilated on 30% fiO2. tolerating vent settings. p: alteration in integumentary i: per care plan e: turned and repositioned Q2 and as needed. pressure offloaded from bony prominences. foam dressings used as needed. p: alteration in tissue cardiac i: per care plan e: 4 beat run of vtach this morning, reported to MD. electrolytes replaced as needed.
[2024-11-09] MEDS: Norepinephrine Bitartrate/NS 32 MG/250 ML PLAST..BAG 11.49 MG IVCONT (19:33)
[2024-11-09] MEDS: vancomycin HCL 1,000 MG in 0.9 % Sodium Chloride 250 ML 270 MG IV (19:55)
[2024-11-10] VITALS (51 sets, daily range): BP systolic 90–156; BP diastolic 38–75; PULSE 71–119; RESP 15–25; TEMP 35–39; O2SAT 87–95; BMI 31.7
[2024-11-10] MEDS: Insulin Lispro 100 UNIT/ML 3 ML VIAL SUBCUT ×5 (00:23→23:25)
[2024-11-10 00:29] LABS: Glucose, Whole Blood 179 mg/dL (60-115)
[2024-11-10] MEDS: propofoL 1,000 MG/100 ML VIAL 12.01 MG IVCONT (02:54)
[2024-11-10] MEDS: Acetaminophen 325 MG TABLET 650 MG PO (04:46)
[2024-11-10 05:33] LABS: VBG Base Excess 24.6 mmol/L; VBG HCO3 50 mmol/L (22-26); VBG pCO2 60 mmHg; VBG pH 7.52 (7.32-7.43); VBG pO2 38 mmHg
[2024-11-10 05:38] LABS: Venous Blood Gas Refer to POC result
[2024-11-10 05:43] LABS: NRBC Pct Auto 0.1 /100WBC (0.0-0.2); PLT CLUMP 1; SCAN SMEAR FLAG 1
[2024-11-10 05:45] LABS: Basophils Absolute Auto 0.1 X10*3/uL (0.0-0.2); Basophils Percent Auto 0.5 % (0-2); Eosinophils Absolute Auto 0.5 X10*3/uL (0.0-0.4); Eosinophils Percent Auto 3.4 % (0-4); Hematocrit 24.3 % (42.0-52.0); Hemoglobin 7.3 g/dl (14.0-18.0); Imm Gran Pct Auto 0.6 % (0.0-0.4); Lymphocytes Absolute Auto 3.3 X10*3/uL (1.2-4.9); Lymphocytes Percent Auto 21.2 % (20-40); Mean Corpuscular Hemoglobin 25.8 pg (27.0-33.0); Mean Corpuscular Volume 85.9 fL (80.0-98.0); Monocytes Absolute Auto 0.8 X10*3/uL (0.1-1.2); Monocytes Percent Auto 5.5 % (2-11); Neutrophils Absolute Auto 10.6 x10*3/uL (2.0-8.3); Neutrophils Percent Auto 68.8 % (45-73); Red Blood Count 2.83 X10*6/uL (4.60-5.80); Red Cell Distribution Width 17.3 % (11.0-16.0)
[2024-11-10 05:47] LABS: MANUAL DIFF FLAG NO; Platelet Count 147 X10*3/uL (160-400); White Blood Count 15.3 X10*3/uL (4.8-10.8)
[2024-11-10 05:59] LABS: Albumin Level 2.9 g/dL (3.5-5.0); Anion Gap 16 (12-20); Blood Urea Nitrogen 28 mg/dL (9-16); Calcium 8.3 mg/dL (8.4-10.2); Carbon Dioxide 37 mmol/L (22-29); Chloride 94 mmol/L (96-108); Creatinine Clr Calc Pharmacy 114.8; Estimated Glomerular Filt Rate > 60; Glucose Random 199 mg/dL (60-115); Magnesium 1.8 mg/dL (1.6-2.6); Phosphorus 3.5 mg/dL (2.7-4.5); Sodium 144 mmol/L (135-145)
[2024-11-10] MEDS: Meropenem 1 GM VIAL IVPUSH ×3 (06:18→22:52)
[2024-11-10] MEDS: Pantoprazole Sodium 40 MG/10 ML VIAL IVPUSH (06:18)
[2024-11-10 06:29] LABS: Glucose, Whole Blood 204 mg/dL (60-115)
[2024-11-10] MEDS: Potassium Chloride Packet 20 MEQ PACKET 40 MEQ PO ×2 (06:30→19:20)
[2024-11-10] MEDS: Potassium Chloride/H20 40 MEQ/100 ML PIGGYBACK 50 MEQ IV ×2 (06:31→19:20)
[2024-11-10] MEDS: Apixaban 5 MG TABLET PO ×2 (08:15→20:48)
[2024-11-10] MEDS: 0.9 % Sodium Chloride Flush 3 ML SYRINGE IVFLUSH ×3 (08:15→23:16)
[2024-11-10] MEDS: acetaZOLAMIDE sodium 500 MG VIAL IVPUSH (08:15)
[2024-11-10] MEDS: Chlorhexidine Gluc Oral Rinse 15 ML MOUTHWASH BUCCAL ×3 (08:16→20:48)
--- NOTE | 2024-11-10 08:23 | PM.CCPN ---
Subjective Subjective Date of Service: 11/10/24 Interval History: no significant overnight events Critical Care Time (minutes): 60 Physical Exam Vital Signs: Vital Signs: Last Vital Signs Temp 102.0 F H 11/10/24 08:00 Pulse 101 H 11/10/24 08:00 Resp 15 11/10/24 08:00 BP 130/59 L 11/10/24 08:00 Pulse Ox 91 L 11/10/24 08:00 O2 Del Method Mechanical Ventil ation 11/10/24 08:00 O2 Flow Rate 10 10/31/24 14:00 FiO2 30 11/10/24 08:00 Oxygen Flow Rate 15 10/29/24 14:07 BMI result Body Mass Index 31.7 Const: Other: intubated, sedated; no appreciable spontaneous movements General: comfortable and no acute distress HEENT: Head: Yes normal to inspection, Yes normocephalic and Yes atraumatic Eyes: General: appearance normal, both eyes and all related structures Neck: Neck: Yes normal visual inspection, Yes full ROM, Yes no meningeal signs, Yes trachea midline and Yes supple Chest: Chest palpation & inspection: normal inspection of the chest Resp: Other: no appreciable overt rales, rhonchi, wheezing Effort & Inspection: normal respiratory effort Cardio: Rate: tachycardic Rhythm: abnormal rhythm GI: Inspection: Yes normal to inspection, No Abdominal wall edema and No distended Palpation (GI): Soft to palpation, not firm, nontender, no guarding and not rigid Skin: General skin exam: no rashes or lesions noted Neuro: General: tone normal and no meningeal signs Extrem: Other: 1+ pitting edema to bilateral shins General: Yes normal to inspection, Yes full ROM and Yes capillary refill normal Psych: Other: unable to assess Objective Data Labs 11/10/24 05:31 11/10/24 05:31 Labs: Laboratory Results - last 24 hr 11/09/24 11/09/24 11/09/24 11:18 18:35 18:40 WBC RBC Hgb Hct MCV MCH MCHC RDW Plt Count MPV Immature Gran % (Auto) Neut % (Auto) Lymph % (Auto) [place] % (Auto) Eos % (Auto) Baso % (Auto) Lymph # (Auto) [place] # (Auto) Eos # (Auto) Baso # (Auto) Abs Immat Gran (auto) Absolute Neuts (auto) Absolute Nucleated RBC Nucleated RBC % (auto) VBG pH VBG pCO2 VBG pO2 VBG HCO3 VBG O2 Saturation VBG Base Excess Sodium 144 Potassium 3.5 Chloride 96 Carbon Dioxide 34 H Anion Gap 18 BUN 27 H Creatinine 0.62 Estim Creat Clear Calc 112.9 Estimated GFR > 60 POC Glucose 184 H 187 H Random Glucose 199 H Calcium 8.8 Phosphorus 3.5 Magnesium 1.8 Albumin Random Vancomycin 15.6 11/10/24 11/10/24 11/10/24 00:14 05:30 05:31 WBC 15.3 H RBC 2.83 L Hgb 7.3 L Hct 24.3 L MCV 85.9 MCH 25.8 L MCHC 30.0 L RDW 17.3 H Plt Count 147 L D MPV 12.0 Immature Gran % (Auto) 0.6 H Neut % (Auto) 68.8 Lymph % (Auto) 21.2 [place] % (Auto) 5.5 Eos % (Auto) 3.4 Baso % (Auto) 0.5 Lymph # (Auto) 3.3 [place] # (Auto) 0.8 Eos # (Auto) 0.5 H Baso # (Auto) 0.1 Abs Immat Gran (auto) 0.10 H Absolute Neuts (auto) 10.6 H Absolute Nucleated RBC 0.020 H Nucleated RBC % (auto) 0.1 VBG pH 7.52 H VBG pCO2 60 VBG pO2 38 VBG HCO3 50 H VBG O2 Saturation 55.0 VBG Base Excess 24.6 Sodium 144 Potassium 3.0 L Chloride 94 L Carbon Dioxide 37 H Anion Gap 16 BUN 28 H Creatinine 0.61 Estim Creat Clear Calc 114.8 Estimated GFR > 60 POC Glucose 179 H Random Glucose 199 H Calcium 8.3 L Phosphorus 3.5 Magnesium 1.8 Albumin 2.9 L Random Vancomycin 11/10/24 06:25 WBC RBC Hgb Hct MCV MCH MCHC RDW Plt Count MPV Immature Gran % (Auto) Neut % (Auto) Lymph % (Auto) [place] % (Auto) Eos % (Auto) Baso % (Auto) Lymph # (Auto) [place] # (Auto) Eos # (Auto) Baso # (Auto) Abs Immat Gran (auto) Absolute Neuts (auto) Absolute Nucleated RBC Nucleated RBC % (auto) VBG pH VBG pCO2 VBG pO2 VBG HCO3 VBG O2 Saturation VBG Base Excess Sodium Potassium Chloride Carbon Dioxide Anion Gap BUN Creatinine Estim Creat Clear Calc Estimated GFR POC Glucose 204 H Random Glucose Calcium Phosphorus Magnesium Albumin Random Vancomycin Microbiology Microbiology Results: Microbiology 11/02/24 09:16 Groin, Right Gram Stain - Final 11/02/24 09:16 Groin, Right Routine Culture - Final Proteus mirabilis So albicans 10/29/24 15:29 Blood - Venous Blood Culture - Final No growth after 5 days. 10/29/24 14:42 Blood - Venous Blood Culture - Final No growth after 5 days. 10/29/24 Unknown Urine Catheterized - Kelly Catheter Urine Culture - Final Escherichia coli Progress Note: A&P Assessment and plan (1) Septic shock: Status: Acute (2) UTI (urinary tract infection): Status: Acute (3) Acute respiratory failure: Status: Acute Plan Patient is a 79 Y M w/ diabetes mellitus, CHF c/b paroxysmal atrial fibrillation, idiopathic pulmonary fibrosis, prostate cancer c/b recurrent ESBL UTI, and recent pneumonia necessitating admission, presenting to emergency department on 10/29 w/ encephalopathy and purulent urine, c/f UTI c/b septic shock; ICU course c/b shock c/b multi-system organ failure including respiratory failure, intubated on 11/01 N: intubated, sedated w/ propofol gtt, wean as tolerated CV: septic shock, norepinephrine gtt, wean as tolerated; paroxysmal atrial fibrillation, on home apixaban R: acute hypoxic respiratory failure, intubated 11/01, wean as tolerated; of note, failed multiple SBT w/in 1 hour d/t respiratory distress; idiopathic pulmonary fibrosis GI: tube feeds : volume overload; furosemide gtt, acetazolamide; to closely monitor renal indices, electrolyte H: thrombocytopenia, improving; paroxysmal atrial fibrillation, on home apixaban ID: ESBL UTI c/b septic shock, on meropenem, empiric vancomycin E: diabetes mellitus; insulin regimen S: daily updates given to patient's son Quality Stroke Does the patient have a stroke diagnosis?: No VTE Prior VTE?: No VTE Risk Level:: Medical - moderate - high VTE Device Contraindication: N/A - Device Ordered VTE Drug Contraindication: N/A - Med Ordered
[2024-11-10] MEDS: Albumin Human 25 % 50 ML 100 ML IV (08:46)
[2024-11-10] MEDS: Calcium Chloride 1 GM/10 ML SYRINGE IVPUSH (09:28)
--- NOTE | 2024-11-10 10:46 | MHC.CLN ---
F/U PT REMAINS INTUBATED WITH TUBE FEEDING. PROPOFOL ON HOLD AT TIME OF ASSESSMENT. TOLERATING TUBE FEEDING AT MAX GOAL RATE GLUCERNA AT 90 ML PER HOUR. TUBE FEEDING PROVIDES 2160KCALS (30KCALS/KG IBW), 90G PROTEIN (1.2G/KG IBW), 1842ML FREE WATER FROM FORMULA (25ML/KG IBW). MONITOR TF TOLERANCE AND LYTES. PER WOUND RN 11/08, SKIN WITH ISCHEMIA/ACUTE SKIN FAILURE. CONTINUE TO FOLLOW WITH TEAM.
[2024-11-10 12:16] LABS: Glucose, Whole Blood 163 mg/dL (60-115)
[2024-11-10] MEDS: propofoL 1,000 MG/100 ML VIAL 6.01 MG IVCONT (13:27)
[2024-11-10] MEDS: Furosemide 200 MG in 0.9 % Sodium Chloride 80 ML 10 MG IVCONT ×2 (13:30→22:53)
--- NOTE | 2024-11-10 14:51 | MHC.CM.PN ---
Pt continues care in ICU: on ventilatory support: no decisions on goals of care from pt's HCP/son. Pt is a LTC resident from [facility]. to follow
[2024-11-10 17:29] LABS: Glucose, Whole Blood 169 mg/dL (60-115)
--- NOTE | 2024-11-10 18:39 | PC.NURSE ---
Sedated on? propofol gtt, Sedation vacation for approx.? 1.[address] Chau order - see NOV. Opens eyes occasionally, does not follow commands, Flaccid extremities (passive ROM performed).? Intubated, ACVC+ vent support, PSV trial for approx. 50 minutes.?? A fib, HR up to 120s, on Levophed 4x gtt - see NOV, MAP goal >65. Dr. Chau aware of the above vitals. Kelly in place patent/draining,? Laxis gtt per NOV. LBM 11/10, soft abdomen, + bowel sounds, OGT in place, Tolerating tube Feeds with no s/s of intolerance, POC q 6HRS. Impaired skin integrity - see skin assessment for details.?(repositioning maintained) Temperature 102.2? placed on a cooling blanket. RIJ TLC,? L. Fem. A-line,? peripheral line.
[2024-11-10 19:02] LABS: Anion Gap 12 (12-20); Blood Urea Nitrogen 35 mg/dL (9-16); Calcium 8.6 mg/dL (8.4-10.2); Carbon Dioxide 39 mmol/L (22-29); Chloride 97 mmol/L (96-108); Creatinine Clr Calc Pharmacy 104.5; Estimated Glomerular Filt Rate > 60; Glucose Random 191 mg/dL (60-115); Magnesium 2.1 mg/dL (1.6-2.6); Phosphorus 3.5 mg/dL (2.7-4.5); Potassium 2.9 mmol/L (3.3-5.1); Sodium 145 mmol/L (135-145)
[2024-11-10] MEDS: Norepinephrine Bitartrate/NS 32 MG/250 ML PLAST..BAG 3.83 MG IVCONT (20:47)
[2024-11-10] MEDS: vancomycin HCL 1,000 MG in 0.9 % Sodium Chloride 250 ML 270 MG IV (20:48)
[2024-11-10 23:15] LABS: Glucose, Whole Blood 189 mg/dL (60-115)
[2024-11-11] VITALS (85 sets, daily range): BP systolic 68–151; BP diastolic 35–78; PULSE 62–142; RESP 17–29; TEMP 34.9–38.6; O2SAT 88–100; BMI 31.7
[2024-11-11] MEDS: propofoL 1,000 MG/100 ML VIAL 12.01 MG IVCONT ×3 (00:22→16:06)
[2024-11-11] MEDS: Acetaminophen 1,000 MG/100 ML PIGGYBACK 400 MG IV (01:21)
[2024-11-11 05:30] LABS: VBG Base Excess 21.6 mmol/L; VBG HCO3 46 mmol/L (22-26); VBG pCO2 52 mmHg; VBG pH 7.55 (7.32-7.43); VBG pO2 33 mmHg
[2024-11-11] MEDS: Vasopressin 20 UNIT/100 ML INFUS..BTL 12 UNIT IVCONT (05:35)
[2024-11-11 05:44] LABS: Venous Blood Gas Refer to POC result
[2024-11-11 05:49] LABS: Basophils Absolute Auto 0.1 X10*3/uL (0.0-0.2); Basophils Percent Auto 0.4 % (0-2); Eosinophils Absolute Auto 0.9 X10*3/uL (0.0-0.4); Eosinophils Percent Auto 4.7 % (0-4); Hematocrit 21.5 % (42.0-52.0); Imm Gran Pct Auto 0.5 % (0.0-0.4); Lymphocytes Absolute Auto 5.1 X10*3/uL (1.2-4.9); Lymphocytes Percent Auto 27.1 % (20-40); MANUAL DIFF FLAG SCAN; Mean Corpuscular HGB Conc 29.3 g/dl (31.0-36.0); Mean Corpuscular Hemoglobin 25.8 pg (27.0-33.0); Mean Corpuscular Volume 88.1 fL (80.0-98.0); Monocytes Absolute Auto 1.2 X10*3/uL (0.1-1.2); Monocytes Percent Auto 6.3 % (2-11); NRBC Pct Auto 0.1 /100WBC (0.0-0.2); Neutrophils Absolute Auto 11.4 x10*3/uL (2.0-8.3); Platelet Count 193 X10*3/uL (160-400); Red Blood Count 2.44 X10*6/uL (4.60-5.80); SCAN SMEAR FLAG 1; White Blood Count 18.6 X10*3/uL (4.8-10.8)
[2024-11-11 05:52] LABS: Hemoglobin 6.3 g/dl (14.0-18.0)
[2024-11-11] MEDS: Albumin Human 25 % 50 ML 100 ML IV ×4 (06:00→06:46)
[2024-11-11] MEDS: Phenylephrine HCL 20 MG in 0.9 % Sodium Chloride 250 ML 36.82 MG IVCONT (06:01)
[2024-11-11 06:07] LABS: Albumin Level 2.7 g/dL (3.5-5.0); Anion Gap 13 (12-20); Blood Urea Nitrogen 39 mg/dL (9-16); Calcium 8.1 mg/dL (8.4-10.2); Carbon Dioxide 36 mmol/L (22-29); Chloride 100 mmol/L (96-108); Creatinine Clr Calc Pharmacy 109.4; Estimated Glomerular Filt Rate > 60; Glucose Random 210 mg/dL (60-115); Phosphorus 3.5 mg/dL (2.7-4.5); Potassium 3.7 mmol/L (3.3-5.1); Sodium 145 mmol/L (135-145)
[2024-11-11] MEDS: Pantoprazole Sodium 40 MG/10 ML VIAL IVPUSH (06:15)
[2024-11-11] MEDS: Calcium Chloride 1 GM/10 ML SYRINGE IVPUSH ×3 (06:15→17:15)
[2024-11-11 06:41] LABS: SLIDE REVIEW VERIFIED
[2024-11-11 07:18] LABS: Glucose, Whole Blood 248 mg/dL (60-115)
[2024-11-11] MEDS: Insulin Lispro 100 UNIT/ML 3 ML VIAL SUBCUT ×2 (07:28→14:07)
--- NOTE | 2024-11-11 08:01 | PM.CCPN ---
Subjective Subjective Date of Service: 11/11/24 Interval History: interval worsening of BP, vasopressor requirement, likely d/t hemorrhage from arterial line removal; manual pressure applied for >1.5 hours; patient transfused multiple products, with improvement of BP, vasopressor requirement; to administer PCC Critical Care Time (minutes): 60 Physical Exam Vital Signs: Vital Signs: Last Vital Signs Temp 100.4 F 11/11/24 07:32 Pulse 107 H 11/11/24 07:32 Resp 20 11/11/24 07:32 BP 108/51 L 11/11/24 07:32 Pulse Ox 93 11/11/24 07:00 O2 Del Method Mechanical Ventil ation 11/11/24 07:00 O2 Flow Rate 10 10/31/24 14:00 FiO2 30 11/11/24 07:00 Oxygen Flow Rate 15 10/29/24 14:07 BMI result Body Mass Index 31.7 Const: Other: intubated, sedated; appreciable grimacing HEENT: Head: Yes normal to inspection, Yes normocephalic and Yes atraumatic Eyes: General: appearance normal, both eyes and all related structures Neck: Neck: Yes normal visual inspection, Yes full ROM, Yes no meningeal signs, Yes trachea midline and Yes supple Chest: Chest palpation & inspection: normal inspection of the chest Resp: Other: no appreciable overt rales, rhonchi, wheezing Effort & Inspection: normal respiratory effort Cardio: Rate: tachycardic Rhythm: abnormal rhythm GI: Inspection: Yes normal to inspection, No Abdominal wall edema and No distended Palpation (GI): Soft to palpation, not firm, nontender, no guarding and not rigid Skin: General skin exam: no rashes or lesions noted Neuro: General: tone normal and no meningeal signs Extrem: Other: appreciable bluish discoloration from L groin to L calf; no appreciable sasha fluctuance, induration; distal pulses easily appreciated w/ palpation bilaterally; L LE compartments soft throughout Psych: Other: unable to assess Objective Data Labs 11/11/24 05:20 11/11/24 05:20 Labs: Laboratory Results - last 24 hr 11/10/24 11/10/24 11/10/24 12:08 17:27 17:58 WBC RBC Hgb Hct MCV MCH MCHC RDW Plt Count MPV Immature Gran % (Auto) Neut % (Auto) Lymph % (Auto) [place] % (Auto) Eos % (Auto) Baso % (Auto) Lymph # (Auto) [place] # (Auto) Eos # (Auto) Baso # (Auto) Abs Immat Gran (auto) Absolute Neuts (auto) Absolute Nucleated RBC Nucleated RBC % (auto) Smear Tech's Comments VBG pH VBG pCO2 VBG pO2 VBG HCO3 VBG O2 Saturation VBG Base Excess Sodium 145 Potassium 2.9 L* Chloride 97 Carbon Dioxide 39 H Anion Gap 12 BUN 35 H Creatinine 0.67 Estim Creat Clear Calc 104.5 Estimated GFR > 60 POC Glucose 163 H 169 H Random Glucose 191 H Calcium 8.6 Phosphorus 3.5 Magnesium 2.1 Albumin Blood Type Antibody Screen Crossmatch 11/10/24 11/11/24 11/11/24 23:10 05:20 05:26 WBC 18.6 H RBC 2.44 L Hgb 6.3 L* Hct 21.5 L MCV 88.1 MCH 25.8 L MCHC 29.3 L RDW 18.0 H Plt Count 193 D MPV 12.0 Immature Gran % (Auto) 0.5 H Neut % (Auto) 61.0 Lymph % (Auto) 27.1 [place] % (Auto) 6.3 Eos % (Auto) 4.7 H Baso % (Auto) 0.4 Lymph # (Auto) 5.1 H [place] # (Auto) 1.2 Eos # (Auto) 0.9 H Baso # (Auto) 0.1 Abs Immat Gran (auto) 0.10 H Absolute Neuts (auto) 11.4 H Absolute Nucleated RBC 0.020 H Nucleated RBC % (auto) 0.1 Smear Tech's Comments VERIFIED VBG pH 7.55 H VBG pCO2 52 VBG pO2 33 VBG HCO3 46 H VBG O2 Saturation 48.0 VBG Base Excess 21.6 Sodium 145 Potassium 3.7 D Chloride 100 Carbon Dioxide 36 H Anion Gap 13 BUN 39 H Creatinine 0.64 Estim Creat Clear Calc 109.4 Estimated GFR > 60 POC Glucose 189 H Random Glucose 210 H Calcium 8.1 L Phosphorus 3.5 Magnesium 2.0 Albumin 2.7 L Blood Type Antibody Screen Crossmatch 11/11/24 11/11/24 06:23 07:11 WBC RBC Hgb Hct MCV MCH MCHC RDW Plt Count MPV Immature Gran % (Auto) Neut % (Auto) Lymph % (Auto) [place] % (Auto) Eos % (Auto) Baso % (Auto) Lymph # (Auto) [place] # (Auto) Eos # (Auto) Baso # (Auto) Abs Immat Gran (auto) Absolute Neuts (auto) Absolute Nucleated RBC Nucleated RBC % (auto) Smear Tech's Comments VBG pH VBG pCO2 VBG pO2 VBG HCO3 VBG O2 Saturation VBG Base Excess Sodium Potassium Chloride Carbon Dioxide Anion Gap BUN Creatinine Estim Creat Clear Calc Estimated GFR POC Glucose 248 H Random Glucose Calcium Phosphorus Magnesium Albumin Blood Type A Negative Antibody Screen NEGATIVE Crossmatch See Detail Microbiology Microbiology Results: Microbiology 11/02/24 09:16 Groin, Right Gram Stain - Final 11/02/24 09:16 Groin, Right Routine Culture - Final Proteus mirabilis So albicans 10/29/24 15:29 Blood - Venous Blood Culture - Final No growth after 5 days. 10/29/24 14:42 Blood - Venous Blood Culture - Final No growth after 5 days. 10/29/24 Unknown Urine Catheterized - Kelly Catheter Urine Culture - Final Escherichia coli Progress Note: A&P Assessment and plan (1) Hemorrhagic shock: Status: Acute (2) Septic shock: Status: Acute (3) UTI (urinary tract infection): Status: Acute (4) Acute respiratory failure: Status: Acute Plan Patient is a 79 Y M w/ diabetes mellitus, CHF c/b paroxysmal atrial fibrillation, idiopathic pulmonary fibrosis, prostate cancer c/b recurrent ESBL UTI, and recent pneumonia necessitating admission, presenting to emergency department on 10/29 w/ encephalopathy and purulent urine, c/f UTI c/b septic shock; ICU course c/b shock c/b multi-system organ failure including respiratory failure, intubated on 11/01 N: intubated, sedated w/ propofol gtt, wean as tolerated CV: initially septic shock, norepinephrine gtt, though now component of hemorrhagic shock 11/11 AM, transfusions as needed, PCC; paroxysmal atrial fibrillation, to hold home apixaban in setting of hemorrhagic shock R: acute hypoxic respiratory failure, intubated 11/01, wean as tolerated; of note, failed multiple SBT w/in 1 hour d/t respiratory distress; idiopathic pulmonary fibrosis GI: tube feeds : volume overload, initially on furosemide gtt, acetazolamide, to hold in setting of hemorrhagic shock; to closely monitor renal indices, electrolyte H: hemorrhagic shock 11/11 AM; paroxysmal atrial fibrillation, to hold home apixaban ID: [id number] UTI c/b septic shock, on meropenem, empiric vancomycin E: diabetes mellitus; insulin regimen S: daily updates regarding guarded clinical status given to patient's son Quality Stroke Does the patient have a stroke diagnosis?: No VTE Prior VTE?: No VTE Risk Level:: Medical - moderate - high VTE Device Contraindication: N/A - Device Ordered VTE Drug Contraindication: Treatment Not Tolerated
--- NOTE | 2024-11-11 08:02 | PC.NURSE ---
At approx 0430- SBP dropping to 70-80s, HR increasing 120-140s. Levophed gtt infusing and titrated per NOV. Continued increased vasopressor requirements. SILICATOR Eliseo notified. Large hematoma noted to be forming at previous arterial line site, immediate manual pressure held, strong pulse palpated, (a-line was removed from left fem at approx 0200 without issue per SILICATOR and manual pressure had been held x15 min to site and occlusive dressing applied). Vasopressin and phenylephrine gtts ordered and titrated per NOV. Given multiple bags of albumin IV per NOV. SILICATOR aware of critical labs. Given total of 3 units pRBCs, 1 unit of platelets, 1 unit of FFPs, and calcium chloride 1 gm x2 IVP. Manual pressure continuously held x90 min then multiple sandbags placed to site per MD Chau. Son notified by SILICATOR of pt status/plan of care and arrived to bedside at approx 0730 and updated by MD. Report given to oncoming RN. See EMR/flowsheet for further details.
[2024-11-11] MEDS: Hum Prothrombin Cplx(PCC)4Fact 2,000 UNIT in Container,Empty 0 ML 480 UNIT IV (08:37)
[2024-11-11] MEDS: 0.9 % Sodium Chloride Flush 3 ML SYRINGE IVFLUSH ×2 (08:38→16:07)
[2024-11-11] MEDS: Chlorhexidine Gluc Oral Rinse 15 ML MOUTHWASH BUCCAL ×3 (08:54→20:44)
[2024-11-11] MEDS: Meropenem 1 GM VIAL IVPUSH ×3 (08:54→22:35)
[2024-11-11 10:27] LABS: Anion Gap 15 (12-20); Blood Urea Nitrogen 39 mg/dL (9-16); Calcium 9.8 mg/dL (8.4-10.2); Carbon Dioxide 38 mmol/L (22-29); Chloride 99 mmol/L (96-108); Creatinine Clr Calc Pharmacy 106.1; Estimated Glomerular Filt Rate > 60; Glucose Random 161 mg/dL (60-115); Magnesium 2.1 mg/dL (1.6-2.6); Phosphorus 4.9 mg/dL (2.7-4.5); Sodium 149 mmol/L (135-145)
[2024-11-11 11:18] LABS: MANUAL DIFF FLAG NO
[2024-11-11 11:28] LABS: Basophils Absolute Auto 0.1 X10*3/uL (0.0-0.2); Basophils Percent Auto 0.4 % (0-2); Eosinophils Absolute Auto 0.3 X10*3/uL (0.0-0.4); Eosinophils Percent Auto 1.5 % (0-4); Hematocrit 23.2 % (42.0-52.0); Hemoglobin 7.3 g/dl (14.0-18.0); Imm Gran Abs Auto 0.13 X10*3/uL (0.00-0.03); Imm Gran Pct Auto 0.7 % (0.0-0.4); Lymphocytes Absolute Auto 3.7 X10*3/uL (1.2-4.9); Lymphocytes Percent Auto 19.6 % (20-40); Mean Corpuscular HGB Conc 31.5 g/dl (31.0-36.0); Mean Corpuscular Volume 85.9 fL (80.0-98.0); Mean Platelet Volume 11.3 fL (9.4-12.4); Monocytes Absolute Auto 1.4 X10*3/uL (0.1-1.2); Monocytes Percent Auto 7.4 % (2-11); NRBC Pct Auto 0.2 /100WBC (0.0-0.2); Neutrophils Absolute Auto 13.2 x10*3/uL (2.0-8.3); Neutrophils Percent Auto 70.4 % (45-73); Platelet Count 172 X10*3/uL (160-400); White Blood Count 18.7 X10*3/uL (4.8-10.8)
[2024-11-11] MEDS: iohexoL 350 MG/ML 100 ML INFUS..BTL 85 ML IV (11:58)
[2024-11-11 13:06] LABS: OBS Int Ctl Valid YES; OBS1 NEGATIVE (NEGATIVE)
[2024-11-11 13:37] LABS: Glucose, Whole Blood 158 mg/dL (60-115)
[2024-11-11] MEDS: Potassium Chloride/H20 40 MEQ/100 ML PIGGYBACK 100 MEQ IV (14:16)
[2024-11-11] MEDS: Norepinephrine Bitartrate/NS 32 MG/250 ML PLAST..BAG 12.44 MG IVCONT (14:46)
--- NOTE | 2024-11-11 17:24 | P.CONGS_ITS ---
History of Present Illness Consult details Consult date: 11/11/24 Reason for consult: other (Left groin hematoma) Narrative: 79-year-old gentleman originally admitted on 10/29/2024 for sepsis and altered mental status. He developed hypotension and respiratory failure. Was subsequently admitted to the ICU for pressor support and was subsequently intubated. It appears on 10/31/2024 a left femoral line was placed for A-line access. Proximally 02:00 this line was not functional and was removed. It appears that there was bleeding throughout the night in the morning. A CT scan was subsequently obtained. It appears that there was more of a medial bleed from the artery and severely atherosclerotic vessels. Large 15 cm hematoma was identified. Hemoglobin this morning was 6.3 and after multiple units it inappropriately tio to only 7.3. A total of 4 units of packed red along with additional products have already been transfused and is waiting the 5th unit. Review of Systems 2 Review of Systems: Yes unobtainable due to endotracheal tube Cardiovascular: Cardiovascular: Reports pedal edema and Reports edema Integumentary/Breasts: Skin/Breast: Denies skin ulcer and Denies wounds PMFSH Past Medical History Medical History Obstructive sleep apnea Generalized anxiety disorder Adjustment disorder Non-insulin dependent type 2 diabetes mellitus Dysphagia Heart failure with reduced ejection fraction Persistent atrial fibrillation Idiopathic pulmonary fibrosis Prostate cancer Chronic indwelling Kelly catheter Social History Social History Household Members: Other Household Members Other:: roomate Housing: Custodial Do you presently have visiting nurse or other home services: No Alcohol intake: never Patient Tobacco Use Status: Never used Tobacco e-Cigarette/Vaping Use: Never Used Second Hand Smoke Exposure: No Advance Directives Date on File: 10/14/24 service: No Meds Allergies Allergy/AdvReac Type Severity Reaction Status Date / Time latex Allergy Rash Verified 10/29/24 14:18 Active Medications: Current Medications Chlorhexidine Gluconate (Chlorhexidine Gluc Oral Rinse 15 Ml Mouthwash) 15 ml BUCCAL TID TINA Last Admin: 11/11/24 14:07 Dose: 15 ml Dextrose (Dextrose 50 % 25 Gm/50 Ml Syringe) 25 gm IVPUSH Q15M PRN; Protocol PRN Reason: per Hypoglycemia Standing Ord. Glucose (Glucose Gel 15 Gm Gel..Gram.) 15 gm PO Q15M PRN; Protocol PRN Reason: per Hypoglycemia Standing Ord. Propofol (Diprivan) 1,000 mg in 100 mls @ 0 mls/hr IVCONT .Q0M [facility]; Protocol Last Admin: 11/11/24 16:06 Dose: 20 mcg/kg/min, 12.01 mls/hr Norepinephrine Bitartrate (Levophed) 32 mg in 250 mls @ 0 mls/hr IVCONT .Q0M TINA; Protocol Last Titration: 11/11/24 17:08 Dose: 0.28 mcg/kg/min, 13.4 mls/hr Acetaminophen (Ofirmev) 1,000 mg in 100 mls @ 400 mls/hr IV Q6H PRN PRN Reason: Fever Last Infusion: 11/11/24 01:40 Dose: Infused Vancomycin HCl 1,000 mg/ (Sodium Chloride) 270 mls @ 270 mls/hr IV Q24H [facility] Last Infusion: 11/10/24 21:49 Dose: Infused Vasopressin (Vasostrict) 20 unit in 100 mls @ 12 mls/hr IVCONT .Q8H20M [facility]; Protocol Last Admin: 11/11/24 17:06 Dose: Not Given Insulin Human Lispro (Insulin Lispro 100 Unit/Ml 3 Ml Vial) 0 unit SUBCUT Q6H [facility]; Protocol Last Admin: 11/11/24 14:07 Dose: 4 unit Meropenem (Meropenem 1 Gm Vial) 1 gm IVPUSH Q8H [facility] Last Admin: 11/11/24 16:04 Dose: 1 gm Pantoprazole Sodium (Pantoprazole Sodium 40 Mg/10 Ml Vial) 40 mg IVPUSH DAILY@0630 [facility] Last Admin: 11/11/24 06:15 Dose: 40 mg Sodium Chloride (0.9 % Sodium Chloride Flush 3 Ml Syringe) 3 ml IVFLUSH QSHIFT [facility] Last Admin: 11/11/24 16:07 Dose: 3 ml Home Medications ?Medication ?Instructions ?Recorded ?Confirmed ?Last Taken ?Type apixaban 5 mg tablet (Eliquis) 5 mg PO BID 10/13/24 10/30/24 Unknown History clotrimazole 1 % topical cream 1 appl topical DAILY PRN Rash 10/13/24 10/30/24 Unknown History doxazosin 4 mg tablet 4 mg PO BID 10/13/24 10/30/24 Unknown History fluticasone 100 mcg-salmeterol 50 1 inh inhalation BID 10/13/24 10/30/24 Unknown History mcg/dose blistr powdr for inhalation (Advair Diskus) fluticasone propionate 50 2 spray intranasal DAILY 10/13/24 10/30/24 Unknown History mcg/actuation nasal spray,suspension folic acid 1 mg tablet 1 mg PO DAILY 10/13/24 10/30/24 Unknown History furosemide 40 mg tablet 40 mg PO BID 10/13/24 10/30/24 Unknown History ipratropium 0.5 mg-albuterol 3 mg 3 ml inhalation Q4H PRN Shortness 10/13/24 10/30/24 Unknown History (2.5 mg base)/3 mL nebulization Of Breath Or Wheezing soln metformin 500 mg tablet 500 mg PO BID 10/13/24 10/30/24 Unknown History omeprazole 20 mg capsule,delayed 20 mg PO DAILY 10/13/24 10/30/24 Unknown History release potassium chloride 20 mEq 20 meq PO BID 10/13/24 10/30/24 Unknown History tablet,extended release(part/cryst) prednisone 10 mg tablet 10 mg PO DAILY 10/13/24 10/30/24 Unknown History tamsulosin 0.4 mg capsule 0.4 mg PO BEDTIME 10/13/24 10/30/24 Unknown History acetaminophen 500 mg tablet 1,000 mg PO BID 10/30/24 10/30/24 Unknown History prednisone 20 mg tablet 20 mg PO DAILY 10/30/24 10/30/24 Unknown History Physical Exam 2 Vital Signs: Vital Signs: Last Vital Signs Temp 99.5 F 11/11/24 17:00 Pulse 93 11/11/24 17:08 Resp 21 H 11/11/24 17:00 BP 130/61 11/11/24 17:08 Pulse Ox 93 11/11/24 17:00 O2 Del Method Mechanical Ventil ation 11/11/24 17:00 O2 Flow Rate 10 10/31/24 14:00 FiO2 30 11/11/24 17:00 Oxygen Flow Rate 15 10/29/24 14:07 BMI result Body Mass Index 31.7 Const: General: cooperative, healthy appearing and comfortable O rientation/consciousness: oriented to person, oriented to place and oriented to time HEENT: Head: Yes normal to inspection Neck: Neck: Yes normal visual inspection Carotids: no bruits Chest: Chest palpation & inspection: normal inspection of the chest Resp: Effort & Inspection: normal respiratory effort and able to speak in complete sentences Auscultation: clear to auscultation bilaterally, no crackles, no rales, no rhonchi and no wheezes Cardio: Rate: regular rate Rhythm: regular rhythm Heart sounds: S1 normal heart sound present and S2 normal heart sound present Bruits: no carotid bruits Peripheral pulses: Peripheral pulses 2+ throughout GI: Inspection: Yes normal to inspection Skin: Wounds: no wounds Hair: normal Neuro: General: oriented to person, oriented to place and oriented to time Cranial nerves: Yes CN's II-XII intact bilaterally Cognition (Neuro): normal cognition Motor exam (neuro): 5/5 motor strength present throughout Extrem: Other: Left groin hematoma General: No clubbing, No cyanosis and No edema Psych: Appearance: grossly normal Mental Status: mental status grossly normal Speech and movement: Normal speech and movement present Results Labs 11/11/24 11:06 11/11/24 09:55 Labs: Abnormal lab results 11/10/24 11/10/24 11/10/24 Range/Units 17:27 17:58 23:10 WBC (4.8-10.8) X10*3/uL RBC (4.60-5.80) X10*6/uL Hgb (14.0-18.0) g/dl Hct (42.0-52.0) % MCH (27.0-33.0) pg MCHC (31.0-36.0) g/dl RDW (11.0-16.0) % Immature Gran % (Auto) (0.0-0.4) % Lymph % (Auto) (20-40) % Eos % (Auto) (0-4) % Lymph # (Auto) (1.2-4.9) X10*3/uL [place]ake # (Auto) (0.1-1.2) X10*3/uL Eos # (Auto) (0.0-0.4) X10*3/uL Abs Immat Gran (auto) (0.00-0.03) X10*3/uL Absolute Neuts (auto) (2.0-8.3) x10*3/uL Absolute Nucleated RBC (0.0-0.012) X10*3/uL VBG pH (7.32-7.43) VBG HCO3 (22-26) mmol/L Sodium (135-145) mmol/L Potassium 2.9 L* (3.3-5.1) mmol/L Carbon Dioxide 39 H (22-29) mmol/L BUN 35 H (9-16) mg/dL POC Glucose 169 H 189 H (60-115) mg/dL Random Glucose 191 H (60-115) mg/dL Calcium (8.4-10.2) mg/dL Phosphorus (2.7-4.5) mg/dL Total Creatine Kinase (38-174) U/L Albumin (3.5-5.0) g/dL Crossmatch 11/11/24 11/11/24 11/11/24 Range/Units 05:20 05:26 06:02 WBC 18.6 H (4.8-10.8) X10*3/uL RBC 2.44 L (4.60-5.80) X10*6/uL Hgb 6.3 L* (14.0-18.0) g/dl Hct 21.5 L (42.0-52.0) % MCH 25.8 L (27.0-33.0) pg MCHC 29.3 L (31.0-36.0) g/dl RDW 18.0 H (11.0-16.0) % Immature Gran % (Auto) 0.5 H (0.0-0.4) % Lymph % (Auto) (20-40) % Eos % (Auto) 4.7 H (0-4) % Lymph # (Auto) 5.1 H (1.2-4.9) X10*3/uL Leake # (Auto) (0.1-1.2) X10*3/uL Eos # (Auto) 0.9 H (0.0-0.4) X10*3/uL Abs Immat Gran (auto) 0.10 H (0.00-0.03) X10*3/uL Absolute Neuts (auto) 11.4 H (2.0-8.3) x10*3/uL Absolute Nucleated RBC 0.020 H (0.0-0.012) X10*3/uL VBG pH 7.55 H (7.32-7.43) VBG HCO3 46 H (22-26) mmol/L Sodium (135-145) mmol/L Potassium (3.3-5.1) mmol/L Carbon Dioxide 36 H (22-29) mmol/L BUN 39 H (9-16) mg/dL POC Glucose (60-115) mg/dL Random Glucose 210 H (60-115) mg/dL Calcium 8.1 L (8.4-10.2) mg/dL Phosphorus (2.7-4.5) mg/dL Total Creatine Kinase (38-174) U/L Albumin 2.7 L (3.5-5.0) g/dL Crossmatch See Detail 11/11/24 11/11/24 11/11/24 Range/Units 06:23 07:11 09:55 WBC (4.8-10.8) X10*3/uL RBC (4.60-5.80) X10*6/uL Hgb (14.0-18.0) g/dl Hct (42.0-52.0) % MCH (27.0-33.0) pg MCHC (31.0-36.0) g/dl RDW (11.0-16.0) % Immature Gran % (Auto) (0.0-0.4) % Lymph % (Auto) (20-40) % Eos % (Auto) (0-4) % Lymph # (Auto) (1.2-4.9) X10*3/uL Leake # (Auto) (0.1-1.2) X10*3/uL Eos # (Auto) (0.0-0.4) X10*3/uL Abs Immat Gran (auto) (0.00-0.03) X10*3/uL Absolute Neuts (auto) (2.0-8.3) x10*3/uL Absolute Nucleated RBC (0.0-0.012) X10*3/uL VBG pH (7.32-7.43) VBG HCO3 (22-26) mmol/L Sodium 149 H (135-145) mmol/L Potassium 3.0 L (3.3-5.1) mmol/L Carbon Dioxide 38 H (22-29) mmol/L BUN 39 H (9-16) mg/dL POC Glucose 248 H (60-115) mg/dL Random Glucose 161 H (60-115) mg/dL Calcium (8.4-10.2) mg/dL Phosphorus 4.9 H (2.7-4.5) mg/dL Total Creatine Kinase 22 L (38-174) U/L Albumin (3.5-5.0) g/dL Crossmatch See Detail 11/11/24 11/11/24 Range/Units 11:06 13:32 WBC 18.7 H (4.8-10.8) X10*3/uL RBC 2.70 L (4.60-5.80) X10*6/uL Hgb 7.3 L (14.0-18.0) g/dl Hct 23.2 L (42.0-52.0) % MCH (27.0-33.0) pg MCHC (31.0-36.0) g/dl RDW (11.0-16.0) % Immature Gran % (Auto) 0.7 H (0.0-0.4) % Lymph % (Auto) 19.6 L (20-40) % Eos % (Auto) (0-4) % Lymph # (Auto) (1.2-4.9) X10*3/uL [place]ake # (Auto) 1.4 H (0.1-1.2) X10*3/uL Eos # (Auto) (0.0-0.4) X10*3/uL Abs Immat Gran (auto) 0.13 H (0.00-0.03) X10*3/uL Absolute Neuts (auto) 13.2 H (2.0-8.3) x10*3/uL Absolute Nucleated RBC 0.040 H (0.0-0.012) X10*3/uL VBG pH (7.32-7.43) VBG HCO3 (22-26) mmol/L Sodium (135-145) mmol/L Potassium (3.3-5.1) mmol/L Carbon Dioxide (22-29) mmol/L BUN (9-16) mg/dL POC Glucose 158 H (60-115) mg/dL Random Glucose (60-115) mg/dL Calcium (8.4-10.2) mg/dL Phosphorus (2.7-4.5) mg/dL Total Creatine Kinase (38-174) U/L Albumin (3.5-5.0) g/dL Crossmatch Short CBC 11/11/24 11/11/24 Range/Units 05:20 11:06 WBC 18.6 H 18.7 H (4.8-10.8) X10*3/uL Hgb 6.3 L* 7.3 L (14.0-18.0) g/dl Hct 21.5 L 23.2 L (42.0-52.0) % Plt Count 193 D 172 (160-400) X10*3/uL BMP 11/10/24 11/11/24 11/11/24 17:58 05:20 09:55 Sodium 145 145 149 H Potassium 2.9 L* 3.7 D 3.0 L Chloride 97 100 99 Carbon Dioxide 39 H 36 H 38 H BUN 35 H 39 H 39 H Creatinine 0.67 0.64 0.66 Calcium 8.6 8.1 L 9.8 D Cardiac Enzymes 11/11/24 Range/Units 09:55 Total Creatine Kinase 22 L (38-174) U/L Liver Function 11/11/24 Range/Units 05:20 Albumin 2.7 L (3.5-5.0) g/dL Urine 10/29/24 Range/Units 16:47 Urine Color Yellow Urine Appearance Cloudy Urine pH 6.5 (5.0-9.0) Ur Specific [employer] 1.025 (1.005-1.025) Urine Protein 100 (2+) H (Neg-Trace) mg/dL Urine Glucose (UA) 100 H (Negative) mg/dL All other labs normal. Imaging Additional studies: CT angiogram reviewed Assessment and Plan (1) Hematoma: Status: Acute In short patient has left femoral hematoma. Due to the amount of pressor requirement and multiple transfusions I do think it is prudent to explore this in to see if we can control the source of bleeding. The patient will require left femoral exploration. This was discussed in detail with the patients son. He was in agreement and we will move forward. Thank you for allowing us to assist in his care. If there are any questions or concerns please do not hesitate to contact us. (2) Hemorrhagic shock: Status: Acute Continue pressure support and transfuse products as required per ICU care. Plan Please note over 60 minutes of time was required for evaluation of patient, review of CT scan, discussion with the cytogenetic technician team, coordination of OR care. Total time managing care of this patient today: 60 minutes. Procedures Date of Service Date of Service: 11/11/24 Arterial Line Size (Gauge): 20
--- NOTE | 2024-11-11 17:45 | HO.ANESPROP2 ---
HPI - Anesthesia Eval Consult details Narrative: Left groin arterial bleeding post invasive monitoring PMFSH Active Problems Active Problems: All Active Problems Hematoma (Acute) Hemorrhagic shock (Acute) Acute respiratory failure (Acute) Skin necrosis (Acute) Acute encephalopathy (Acute) Septic shock (Acute) Acute on chronic hypoxic respiratory failure (Acute) Metabolic encephalopathy (Acute) Metabolic alkalosis (Acute) Sepsis due to urinary tract infection (Acute) Abnormal finding on imaging (Acute) Chronic indwelling Kelly catheter (Acute) UTI (urinary tract infection) (Acute) Past Medical History Medical History Obstructive sleep apnea Generalized anxiety disorder Adjustment disorder Non-insulin dependent type 2 diabetes mellitus Dysphagia Heart failure with reduced ejection fraction Persistent atrial fibrillation Idiopathic pulmonary fibrosis Prostate cancer Chronic indwelling Kelly catheter Family History Family history of problems with anesthesia: No Surgical History History of Problems with Anesthesia: No Social History Social History Household Members: Other Household Members Other:: roomate Housing: Alf Do you presently have visiting nurse or other home services: No Alcohol intake: never Patient Tobacco Use Status: Never used Tobacco e-Cigarette/Vaping Use: Never Used Second Hand Smoke Exposure: No Advance Directives Date on File: 10/14/24 service: No Meds Allergies Allergy/AdvReac Type Severity Reaction Status Date / Time latex Allergy Rash Verified 10/29/24 14:18 Active Medications: Current Medications Chlorhexidine Gluconate (Chlorhexidine Gluc Oral Rinse 15 Ml Mouthwash) 15 ml BUCCAL TID TINA Last Admin: 11/11/24 14:07 Dose: 15 ml Dextrose (Dextrose 50 % 25 Gm/50 Ml Syringe) 25 gm IVPUSH Q15M PRN; Protocol PRN Reason: per Hypoglycemia Standing Ord. Glucose (Glucose Gel 15 Gm Gel..Gram.) 15 gm PO Q15M PRN; Protocol PRN Reason: per Hypoglycemia Standing Ord. Propofol (Diprivan) 1,000 mg in 100 mls @ 0 mls/hr IVCONT .Q0M TINA; Protocol Last Admin: 11/11/24 16:06 Dose: 20 mcg/kg/min, 12.01 mls/hr Norepinephrine Bitartrate (Levophed) 32 mg in 250 mls @ 0 mls/hr IVCONT .Q0M TINA; Protocol Last Titration: 11/11/24 17:43 Dose: 0.26 mcg/kg/min, 12.44 mls/hr Acetaminophen (Ofirmev) 1,000 mg in 100 mls @ 400 mls/hr IV Q6H PRN PRN Reason: Fever Last Infusion: 11/11/24 01:40 Dose: Infused Vancomycin HCl 1,000 mg/ (Sodium Chloride) 270 mls @ 270 mls/hr IV Q24H [facility] Last Infusion: 11/10/24 21:49 Dose: Infused Vasopressin (Vasostrict) 20 unit in 100 mls @ 12 mls/hr IVCONT .Q8H20M [facility]; Protocol Last Admin: 11/11/24 17:06 Dose: Not Given Insulin Human Lispro (Insulin Lispro 100 Unit/Ml 3 Ml Vial) 0 unit SUBCUT Q6H [facility]; Protocol Last Admin: 11/11/24 14:07 Dose: 4 unit Meropenem (Meropenem 1 Gm Vial) 1 gm IVPUSH Q8H [facility] Last Admin: 11/11/24 16:04 Dose: 1 gm Pantoprazole Sodium (Pantoprazole Sodium 40 Mg/10 Ml Vial) 40 mg IVPUSH DAILY@0630 [facility] Last Admin: 11/11/24 06:15 Dose: 40 mg Sodium Chloride (0.9 % Sodium Chloride Flush 3 Ml Syringe) 3 ml IVFLUSH QSHIFT [facility] Last Admin: 11/11/24 16:07 Dose: 3 ml Home Medications ?Medication ?Instructions ?Recorded ?Confirmed ?Last Taken ?Type apixaban 5 mg tablet (Eliquis) 5 mg PO BID 10/13/24 10/30/24 Unknown History clotrimazole 1 % topical cream 1 appl topical DAILY PRN Rash 10/13/24 10/30/24 Unknown History doxazosin 4 mg tablet 4 mg PO BID 10/13/24 10/30/24 Unknown History fluticasone 100 mcg-salmeterol 50 1 inh inhalation BID 10/13/24 10/30/24 Unknown History mcg/dose blistr powdr for inhalation (Advair Diskus) fluticasone propionate 50 2 spray intranasal DAILY 10/13/24 10/30/24 Unknown History mcg/actuation nasal spray,suspension folic acid 1 mg tablet 1 mg PO DAILY 10/13/24 10/30/24 Unknown History furosemide 40 mg tablet 40 mg PO BID 10/13/24 10/30/24 Unknown History ipratropium 0.5 mg-albuterol 3 mg 3 ml inhalation Q4H PRN Shortness 10/13/24 10/30/24 Unknown History (2.5 mg base)/3 mL nebulization Of Breath Or Wheezing soln metformin 500 mg tablet 500 mg PO BID 10/13/24 10/30/24 Unknown History omeprazole 20 mg capsule,delayed 20 mg PO DAILY 10/13/24 10/30/24 Unknown History release potassium chloride 20 mEq 20 meq PO BID 10/13/24 10/30/24 Unknown History tablet,extended release(part/cryst) prednisone 10 mg tablet 10 mg PO DAILY 10/13/24 10/30/24 Unknown History tamsulosin 0.4 mg capsule 0.4 mg PO BEDTIME 10/13/24 10/30/24 Unknown History acetaminophen 500 mg tablet 1,000 mg PO BID 10/30/24 10/30/24 Unknown History prednisone 20 mg tablet 20 mg PO DAILY 10/30/24 10/30/24 Unknown History Exam Height,Weight and Vital Signs: Height 5 ft 9 in Weight 97.4 kg Last Vital Signs Temp 99.5 F 11/11/24 17:34 Pulse 105 H 11/11/24 17:43 Resp 18 11/11/24 17:34 BP 140/60 H 11/11/24 17:43 Pulse Ox 93 11/11/24 17:00 O2 Del Method Mechanical Ventilation 11/11/24 17:00 O2 Flow Rate 10 10/31/24 14:00 FiO2 30 11/11/24 17:00 Oxygen Flow Rate 15 10/29/24 14:07 Pertinent Lab Results Pertinent Lab Results: Laboratory Tests 10/29/24 10/29/24 10/29/24 14:42 14:47 14:54 WBC 12.1 H RBC 3.86 L Hgb 10.0 L Hct 33.9 L MCV 87.8 MCH 25.9 L MCHC 29.5 L RDW 16.9 H Plt Count 197 MPV 10.5 Immature Gran % (Auto) 0.7 H Neut % (Auto) 85.0 H Lymph % (Auto) 10.5 L [place] % (Auto) 3.5 Eos % (Auto) 0.1 Baso % (Auto) 0.2 Lymph # (Auto) 1.3 [place] # (Auto) 0.4 Eos # (Auto) 0.0 Baso # (Auto) 0.0 Abs Immat Gran (auto) 0.08 H Absolute Neuts (auto) 10.3 H Absolute Nucleated RBC 0.000 Nucleated RBC % (auto) 0.0 Smear Tech's Comments PT INR APTT O2 Saturation ABG pH at Pt Temp ABG pCO2 at Pt Temp ABG pO2 at Pt Temp ABG HCO3 ABG Base Excess (Actual) VBG pH 7.44 H VBG pCO2 59 VBG pO2 32 VBG HCO3 40 H VBG O2 Saturation 44.0 VBG Base Excess 14.0 Sodium 140 Potassium 5.1 Chloride 100 Carbon Dioxide 26 Anion Gap 19 BUN 21 H Creatinine 0.71 Estim Creat Clear Calc 85.7 Estimated GFR > 60 POC Glucose Random Glucose 176 H Lactic Acid 2.7 H* Lactic Acid F/U @ 2Hr Calcium 8.8 Phosphorus Magnesium 1.7 Total Bilirubin 0.3 Direct Bilirubin 0.1 AST 26 ALT < 6 Alkaline Phosphatase 207 H Total Creatine Kinase Troponin I High Sens 13.5 C-Reactive Protein 5.89 H B-Natriuretic Peptide 539 H Total Protein 7.8 Albumin 2.7 L Procalcitonin 0.10 Urine Color Urine Appearance Urine pH Ur Specific [place] Urine Protein Urine Glucose (UA) Urine Ketones Urine Blood Urine Nitrite Ur Leukocyte Esterase Urine RBC Urine WBC Ur Squamous Epith Cells Ur Transition Epith Cell Urine Bacteria Hyaline Casts Stool Occult Blood Vancomycin Trough Random Vancomycin Influenza Type A (PCR) NEGATIVE Influenza Type B (PCR) NEGATIVE RSV RNA Qual (PCR) NEGATIVE SARS-CoV-2 RNA (RT-PCR) NEGATIVE Blood Type Antibody Screen Crossmatch 10/29/24 10/29/24 10/29/24 15:29 16:47 17:20 WBC RBC Hgb Hct MCV MCH MCHC RDW Plt Count MPV Immature Gran % (Auto) Neut % (Auto) Lymph % (Auto) [place] % (Auto) Eos % (Auto) Baso % (Auto) Lymph # (Auto) [place] # (Auto) Eos # (Auto) Baso # (Auto) Abs Immat Gran (auto) Absolute Neuts (auto) Absolute Nucleated RBC Nucleated RBC % (auto) Smear Tech's Comments PT 18.3 H INR 1.6 H APTT O2 Saturation ABG pH at Pt Temp ABG pCO2 at Pt Temp ABG pO2 at Pt Temp ABG HCO3 ABG Base Excess (Actual) VBG pH VBG pCO2 VBG pO2 VBG HCO3 VBG O2 Saturation VBG Base Excess Sodium Potassium Chloride Carbon Dioxide Anion Gap BUN Creatinine Estim Creat Clear Calc Estimated GFR POC Glucose Random Glucose Lactic Acid Lactic Acid F/U @ 2Hr 1.8 Calcium Phosphorus Magnesium Total Bilirubin Direct Bilirubin AST ALT Alkaline Phosphatase Total Creatine Kinase Troponin I High Sens 17.3 C-Reactive Protein B-Natriuretic Peptide Total Protein Albumin Procalcitonin Urine Color Yellow Urine Appearance Cloudy Urine pH 6.5 Ur Specific [place] 1.025 Urine Protein 100 (2+) H Urine Glucose (UA) 100 H Urine Ketones Trace Urine Blood Large (3+) H Urine Nitrite Positive H Ur Leukocyte Esterase Large (3+) H Urine RBC >20 H Urine WBC >50 Ur Squamous Epith Cells 0-2 Ur Transition Epith Cell Present Urine Bacteria 4+ Hyaline Casts 0-2 Stool Occult Blood Vancomycin Trough Random Vancomycin Influenza Type A (PCR) Influenza Type B (PCR) RSV RNA Qual (PCR) SARS-CoV-2 RNA (RT-PCR) Blood Type Antibody Screen Crossmatch 10/30/24 10/30/24 10/30/24 04:30 07:05 07:28 WBC 13.0 H RBC 3.11 L Hgb 8.1 L Hct 27.9 L MCV 89.7 MCH 26.0 L MCHC 29.0 L RDW 16.7 H Plt Count 177 MPV 10.9 Immature Gran % (Auto) 0.5 H Neut % (Auto) 75.4 H Lymph % (Auto) 18.7 L [place] % (Auto) 5.1 Eos % (Auto) 0.1 Baso % (Auto) 0.2 Lymph # (Auto) 2.4 [place] # (Auto) 0.7 Eos # (Auto) 0.0 Baso # (Auto) 0.0 Abs Immat Gran (auto) 0.06 H Absolute Neuts (auto) 9.8 H Absolute Nucleated RBC 0.000 Nucleated RBC % (auto) 0.0 Smear Tech's Comments PT INR APTT O2 Saturation 91.0 ABG pH at Pt Temp 7.33 L ABG pCO2 at Pt Temp 55 H ABG pO2 at Pt Temp 69 L ABG HCO3 29 H ABG Base Excess (Actual) 3.2 VBG pH VBG pCO2 VBG pO2 VBG HCO3 VBG O2 Saturation VBG Base Excess Sodium 144 Potassium 4.0 D Chloride 106 Carbon Dioxide 30 H Anion Gap 12 BUN 16 Creatinine 0.61 Estim Creat Clear Calc 99.8 Estimated GFR > 60 POC Glucose 181 H Random Glucose 131 H Lactic Acid Lactic Acid F/U @ 2Hr Calcium 8.2 L D Phosphorus Magnesium Total Bilirubin Direct Bilirubin AST ALT Alkaline Phosphatase Total Creatine Kinase Troponin I High Sens C-Reactive Protein B-Natriuretic Peptide Total Protein Albumin Procalcitonin Urine Color Urine Appearance Urine pH Ur Specific [place] Urine Protein Urine Glucose (UA) Urine Ketones Urine Blood Urine Nitrite Ur Leukocyte Esterase Urine RBC Urine WBC Ur Squamous Epith Cells Ur Transition Epith Cell Urine Bacteria Hyaline Casts Stool Occult Blood Vancomycin Trough Random Vancomycin Influenza Type A (PCR) Influenza Type B (PCR) RSV RNA Qual (PCR) SARS-CoV-2 RNA (RT-PCR) Blood Type Antibody Screen Crossmatch 10/30/24 10/30/24 10/30/24 13:29 16:42 21:28 WBC RBC Hgb Hct MCV MCH MCHC RDW Plt Count MPV Immature Gran % (Auto) Neut % (Auto) Lymph % (Auto) [place] % (Auto) Eos % (Auto) Baso % (Auto) Lymph # (Auto) [place] # (Auto) Eos # (Auto) Baso # (Auto) Abs Immat Gran (auto) Absolute Neuts (auto) Absolute Nucleated RBC Nucleated RBC % (auto) Smear Tech's Comments PT INR APTT O2 Saturation ABG pH at Pt Temp ABG pCO2 at Pt Temp ABG pO2 at Pt Temp ABG HCO3 ABG Base Excess (Actual) VBG pH VBG pCO2 VBG pO2 VBG HCO3 VBG O2 Saturation VBG Base Excess Sodium Potassium Chloride Carbon Dioxide Anion Gap BUN Creatinine Estim Creat Clear Calc Estimated GFR POC Glucose 131 H 116 H 143 H Random Glucose Lactic Acid Lactic Acid F/U @ 2Hr Calcium Phosphorus Magnesium Total Bilirubin Direct Bilirubin AST ALT Alkaline Phosphatase Total Creatine Kinase Troponin I High Sens C-Reactive Protein B-Natriuretic Peptide Total Protein Albumin Procalcitonin Urine Color Urine Appearance Urine pH Ur Specific [place] Urine Protein Urine Glucose (UA) Urine Ketones Urine Blood Urine Nitrite Ur Leukocyte Esterase Urine RBC Urine WBC Ur Squamous Epith Cells Ur Transition Epith Cell Urine Bacteria Hyaline Casts Stool Occult Blood Vancomycin Trough Random Vancomycin Influenza Type A (PCR) Influenza Type B (PCR) RSV RNA Qual (PCR) SARS-CoV-2 RNA (RT-PCR) Blood Type Antibody Screen Crossmatch 10/30/24 10/31/24 10/31/24 23:34 04:38 04:39 WBC 13.9 H RBC 3.39 L Hgb 8.9 L Hct 30.5 L MCV 90.0 MCH 26.3 L MCHC 29.2 L RDW 16.3 H Plt Count 203 MPV 11.4 Immature Gran % (Auto) 0.6 H Neut % (Auto) 74.5 H Lymph % (Auto) 16.8 L [place] % (Auto) 5.5 Eos % (Auto) 2.3 Baso % (Auto) 0.3 Lymph # (Auto) 2.3 [place] # (Auto) 0.8 Eos # (Auto) 0.3 Baso # (Auto) 0.0 Abs Immat Gran (auto) 0.09 H Absolute Neuts (auto) 10.4 H Absolute Nucleated RBC 0.000 Nucleated RBC % (auto) 0.0 Smear Tech's Comments PT INR APTT O2 Saturation ABG pH at Pt Temp ABG pCO2 at Pt Temp ABG pO2 at Pt Temp ABG HCO3 ABG Base Excess (Actual) VBG pH VBG pCO2 VBG pO2 VBG HCO3 VBG O2 Saturation VBG Base Excess Sodium 141 Potassium 3.9 Chloride 103 Carbon Dioxide 32 H Anion Gap 10 L BUN 12 Creatinine 0.64 Estim Creat Clear Calc 95.1 Estimated GFR > 60 POC Glucose 162 H 174 H Random Glucose 186 H Lactic Acid Lactic Acid F/U @ 2Hr Calcium 8.5 Phosphorus 2.6 L Magnesium 1.5 L Total Bilirubin 0.2 Direct Bilirubin AST 14 ALT < 6 Alkaline Phosphatase 190 H Total Creatine Kinase Troponin I High Sens C-Reactive Protein B-Natriuretic Peptide Total Protein 6.4 L Albumin 2.7 L Procalcitonin Urine Color Urine Appearance Urine pH Ur Specific [place] Urine Protein Urine Glucose (UA) Urine Ketones Urine Blood Urine Nitrite Ur Leukocyte Esterase Urine RBC Urine WBC Ur Squamous Epith Cells Ur Transition Epith Cell Urine Bacteria Hyaline Casts Stool Occult Blood Vancomycin Trough Random Vancomycin Influenza Type A (PCR) Influenza Type B (PCR) RSV RNA Qual (PCR) SARS-CoV-2 RNA (RT-PCR) Blood Type Antibody Screen Crossmatch 10/31/24 10/31/24 10/31/24 04:43 09:42 11:10 WBC RBC Hgb Hct MCV MCH MCHC RDW Plt Count MPV Immature Gran % (Auto) Neut % (Auto) Lymph % (Auto) [place] % (Auto) Eos % (Auto) Baso % (Auto) Lymph # (Auto) [place] # (Auto) Eos # (Auto) Baso # (Auto) Abs Immat Gran (auto) Absolute Neuts (auto) Absolute Nucleated RBC Nucleated RBC % (auto) Smear Tech's Comments PT 12.6 H D INR 1.1 APTT 34.1 O2 Saturation ABG pH at Pt Temp ABG pCO2 at Pt Temp ABG pO2 at Pt Temp ABG HCO3 ABG Base Excess (Actual) VBG pH 7.34 VBG pCO2 64 VBG pO2 46 VBG HCO3 35 H VBG O2 Saturation 72.0 VBG Base Excess 7.7 Sodium Potassium Chloride Carbon Dioxide Anion Gap BUN Creatinine Estim Creat Clear Calc Estimated GFR POC Glucose 176 H Random Glucose Lactic Acid Lactic Acid F/U @ 2Hr Calcium Phosphorus Magnesium Total Bilirubin Direct Bilirubin AST ALT Alkaline Phosphatase Total Creatine Kinase Troponin I High Sens C-Reactive Protein B-Natriuretic Peptide Total Protein Albumin Procalcitonin Urine Color Urine Appearance Urine pH Ur Specific [place] Urine Protein Urine Glucose (UA) Urine Ketones Urine Blood Urine Nitrite Ur Leukocyte Esterase Urine RBC Urine WBC Ur Squamous Epith Cells Ur Transition Epith Cell Urine Bacteria Hyaline Casts Stool Occult Blood Vancomycin Trough Random Vancomycin Influenza Type A (PCR) Influenza Type B (PCR) RSV RNA Qual (PCR) SARS-CoV-2 RNA (RT-PCR) Blood Type Antibody Screen Crossmatch 10/31/24 10/31/24 10/31/24 14:48 15:39 17:12 WBC 13.5 H RBC 3.70 L Hgb 9.6 L Hct 34.0 L MCV 91.9 MCH 25.9 L MCHC 28.2 L RDW 16.0 Plt Count 232 MPV 10.8 Immature Gran % (Auto) Neut % (Auto) Lymph % (Auto) [place] % (Auto) Eos % (Auto) Baso % (Auto) Lymph # (Auto) [place] # (Auto) Eos # (Auto) Baso # (Auto) Abs Immat Gran (auto) Absolute Neuts (auto) Absolute Nucleated RBC 0.020 H Nucleated RBC % (auto) 0.1 Smear Tech's Comments PT INR APTT O2 Saturation 94.0 ABG pH at Pt Temp 7.28 L ABG pCO2 at Pt Temp 74 H* ABG pO2 at Pt Temp 79 L ABG HCO3 35 H ABG Base Excess (Actual) 7.0 VBG pH VBG pCO2 VBG pO2 VBG HCO3 VBG O2 Saturation VBG Base Excess Sodium 142 Potassium 4.3 Chloride 104 Carbon Dioxide 32 H Anion Gap 10 L BUN 12 Creatinine 0.73 Estim Creat Clear Calc 92.5 Estimated GFR > 60 POC Glucose 184 H Random Glucose 163 H Lactic Acid Lactic Acid F/U @ 2Hr Calcium 8.7 Phosphorus Magnesium Total Bilirubin 0.2 Direct Bilirubin AST 15 ALT < 6 Alkaline Phosphatase 197 H Total Creatine Kinase Troponin I High Sens C-Reactive Protein B-Natriuretic Peptide Total Protein 6.9 Albumin 2.9 L Procalcitonin Urine Color Urine Appearance Urine pH Ur Specific [place] Urine Protein Urine Glucose (UA) Urine Ketones Urine Blood Urine Nitrite Ur Leukocyte Esterase Urine RBC Urine WBC Ur Squamous Epith Cells Ur Transition Epith Cell Urine Bacteria Hyaline Casts Stool Occult Blood Vancomycin Trough Random Vancomycin Influenza Type A (PCR) Influenza Type B (PCR) RSV RNA Qual (PCR) SARS-CoV-2 RNA (RT-PCR) Blood Type Antibody Screen Crossmatch 10/31/24 10/31/24 11/01/24 20:12 23:24 04:32 WBC 14.2 H RBC 3.42 L Hgb 8.6 L Hct 29.8 L MCV 87.1 MCH 25.1 L MCHC 28.9 L RDW 16.0 Plt Count 163 D MPV 12.0 Immature Gran % (Auto) 1.2 H Neut % (Auto) 59.9 Lymph % (Auto) 31.2 [place] % (Auto) 6.8 Eos % (Auto) 0.5 Baso % (Auto) 0.4 Lymph # (Auto) 4.4 [place] # (Auto) 1.0 Eos # (Auto) 0.1 Baso # (Auto) 0.1 Abs Immat Gran (auto) 0.17 H Absolute Neuts (auto) 8.5 H Absolute Nucleated RBC 0.120 H Nucleated RBC % (auto) 0.8 H Smear Tech's Comments PT INR APTT O2 Saturation ABG pH at Pt Temp ABG pCO2 at Pt Temp ABG pO2 at Pt Temp ABG HCO3 ABG Base Excess (Actual) VBG pH VBG pCO2 VBG pO2 VBG HCO3 VBG O2 Saturation VBG Base Excess Sodium 141 139 Potassium 4.2 4.1 Chloride 102 105 Carbon Dioxide 30 H 23 Anion Gap 13 15 BUN 13 16 Creatinine 0.67 0.69 Estim Creat Clear Calc 100.8 97.9 Estimated GFR > 60 > 60 POC Glucose 191 H Random Glucose 218 H 166 H Lactic Acid Lactic Acid F/U @ 2Hr Calcium 8.2 L 8.1 L Phosphorus 2.4 L 2.6 L Magnesium 1.8 2.2 Total Bilirubin 0.3 1.0 Direct Bilirubin AST 25 2715 H ALT < 6 1215 H Alkaline Phosphatase 192 H 205 H Total Creatine Kinase Troponin I High Sens C-Reactive Protein B-Natriuretic Peptide Total Protein 6.3 L 6.3 L Albumin 2.6 L 3.6 Procalcitonin Urine Color Urine Appearance Urine pH Ur Specific [place] Urine Protein Urine Glucose (UA) Urine Ketones Urine Blood Urine Nitrite Ur Leukocyte Esterase Urine RBC Urine WBC Ur Squamous Epith Cells Ur Transition Epith Cell Urine Bacteria Hyaline Casts Stool Occult Blood Vancomycin Trough Random Vancomycin Influenza Type A (PCR) Influenza Type B (PCR) RSV RNA Qual (PCR) SARS-CoV-2 RNA (RT-PCR) Blood Type Antibody Screen Crossmatch 11/01/24 11/01/24 11/01/24 06:29 09:02 11:27 WBC RBC Hgb Hct MCV MCH MCHC RDW Plt Count MPV Immature Gran % (Auto) Neut % (Auto) Lymph % (Auto) [place] % (Auto) Eos % (Auto) Baso % (Auto) Lymph # (Auto) [place] # (Auto) Eos # (Auto) Baso # (Auto) Abs Immat Gran (auto) Absolute Neuts (auto) Absolute Nucleated RBC Nucleated RBC % (auto) Smear Tech's Comments PT 25.0 H D INR 2.1 H APTT O2 Saturation ABG pH at Pt Temp ABG pCO2 at Pt Temp ABG pO2 at Pt Temp ABG HCO3 ABG Base Excess (Actual) VBG pH 7.37 VBG pCO2 52 VBG pO2 48 VBG HCO3 30 H VBG O2 Saturation 70.0 VBG Base Excess 4.5 Sodium Potassium Chloride Carbon Dioxide Anion Gap BUN Creatinine Estim Creat Clear Calc Estimated GFR POC Glucose 139 H Random Glucose Lactic Acid Lactic Acid F/U @ 2Hr Calcium Phosphorus Magnesium Total Bilirubin Direct Bilirubin AST ALT Alkaline Phosphatase Total Creatine Kinase Troponin I High Sens C-Reactive Protein B-Natriuretic Peptide Total Protein Albumin Procalcitonin Urine Color Urine Appearance Urine pH Ur Specific [place] Urine Protein Urine Glucose (UA) Urine Ketones Urine Blood Urine Nitrite Ur Leukocyte Esterase Urine RBC Urine WBC Ur Squamous Epith Cells Ur Transition Epith Cell Urine Bacteria Hyaline Casts Stool Occult Blood Vancomycin Trough Random Vancomycin Influenza Type A (PCR) Influenza Type B (PCR) RSV RNA Qual (PCR) SARS-CoV-2 RNA (RT-PCR) Blood Type Antibody Screen Crossmatch 11/01/24 11/01/24 11/01/24 12:56 17:48 23:12 WBC RBC Hgb Hct MCV MCH MCHC RDW Plt Count MPV Immature Gran % (Auto) Neut % (Auto) Lymph % (Auto) [place] % (Auto) Eos % (Auto) Baso % (Auto) Lymph # (Auto) [place] # (Auto) Eos # (Auto) Baso # (Auto) Abs Immat Gran (auto) Absolute Neuts (auto) Absolute Nucleated RBC Nucleated RBC % (auto) Smear Tech's Comments PT INR APTT O2 Saturation ABG pH at Pt Temp ABG pCO2 at Pt Temp ABG pO2 at Pt Temp ABG HCO3 ABG Base Excess (Actual) VBG pH VBG pCO2 VBG pO2 VBG HCO3 VBG O2 Saturation VBG Base Excess Sodium 141 Potassium 3.9 Chloride 104 Carbon Dioxide 23 Anion Gap 18 BUN 17 H Creatinine 0.65 Estim Creat Clear Calc 110.5 Estimated GFR > 60 POC Glucose 153 H 137 H Random Glucose 153 H Lactic Acid Lactic Acid F/U @ 2Hr Calcium 8.1 L Phosphorus Magnesium 2.0 Total Bilirubin 0.9 Direct Bilirubin AST 4874 H ALT 1990 H Alkaline Phosphatase 208 H Total Creatine Kinase Troponin I High Sens C-Reactive Protein B-Natriuretic Peptide Total Protein 6.2 L Albumin 3.3 L Procalcitonin Urine Color Urine Appearance Urine pH Ur Specific [place] Urine Protein Urine Glucose (UA) Urine Ketones Urine Blood Urine Nitrite Ur Leukocyte Esterase Urine RBC Urine WBC Ur Squamous Epith Cells Ur Transition Epith Cell Urine Bacteria Hyaline Casts Stool Occult Blood Vancomycin Trough Random Vancomycin Influenza Type A (PCR) Influenza Type B (PCR) RSV RNA Qual (PCR) SARS-CoV-2 RNA (RT-PCR) Blood Type Antibody Screen Crossmatch 11/02/24 11/02/24 11/02/24 05:00 05:10 11:08 WBC 13.6 H RBC 3.46 L Hgb 8.8 L Hct 28.1 L MCV 81.2 D MCH 25.4 L MCHC 31.3 RDW 15.9 Plt Count 128 L MPV 11.9 Immature Gran % (Auto) 0.9 H Neut % (Auto) 70.0 Lymph % (Auto) 23.8 [place] % (Auto) 3.8 Eos % (Auto) 1.1 Baso % (Auto) 0.4 Lymph # (Auto) 3.2 [place] # (Auto) 0.5 Eos # (Auto) 0.2 Baso # (Auto) 0.1 Abs Immat Gran (auto) 0.12 H Absolute Neuts (auto) 9.5 H Absolute Nucleated RBC 0.040 H Nucleated RBC % (auto) 0.3 H Smear Tech's Comments PT INR APTT O2 Saturation ABG pH at Pt Temp ABG pCO2 at Pt Temp ABG pO2 at Pt Temp ABG HCO3 ABG Base Excess (Actual) VBG pH 7.54 H VBG pCO2 34 VBG pO2 83 VBG HCO3 29 H VBG O2 Saturation 98.0 VBG Base Excess 7.3 Sodium 140 Potassium 2.7 L* D Chloride 103 Carbon Dioxide 24 Anion Gap 16 BUN 19 H Creatinine 0.66 Estim Creat Clear Calc 108.8 Estimated GFR > 60 POC Glucose 168 H Random Glucose 225 H Lactic Acid Lactic Acid F/U @ 2Hr Calcium 8.0 L Phosphorus 2.0 L Magnesium 1.7 Total Bilirubin 0.5 Direct Bilirubin AST 2236 H ALT 1473 H Alkaline Phosphatase 206 H Total Creatine Kinase Troponin I High Sens C-Reactive Protein B-Natriuretic Peptide Total Protein 5.8 L Albumin 2.9 L Procalcitonin Urine Color Urine Appearance Urine pH Ur Specific [place] Urine Protein Urine Glucose (UA) Urine Ketones Urine Blood Urine Nitrite Ur Leukocyte Esterase Urine RBC Urine WBC Ur Squamous Epith Cells Ur Transition Epith Cell Urine Bacteria Hyaline Casts Stool Occult Blood Vancomycin Trough Random Vancomycin 22.0 H Influenza Type A (PCR) Influenza Type B (PCR) RSV RNA Qual (PCR) SARS-CoV-2 RNA (RT-PCR) Blood Type Antibody Screen Crossmatch 11/02/24 11/02/24 11/02/24 12:03 12:34 17:26 WBC RBC Hgb Hct MCV MCH MCHC RDW Plt Count MPV Immature Gran % (Auto) Neut % (Auto) Lymph % (Auto) [place] % (Auto) Eos % (Auto) Baso % (Auto) Lymph # (Auto) [place] # (Auto) Eos # (Auto) Baso # (Auto) Abs Immat Gran (auto) Absolute Neuts (auto) Absolute Nucleated RBC Nucleated RBC % (auto) Smear Tech's Comments PT INR APTT O2 Saturation ABG pH at Pt Temp ABG pCO2 at Pt Temp ABG pO2 at Pt Temp ABG HCO3 ABG Base Excess (Actual) VBG pH VBG pCO2 VBG pO2 VBG HCO3 VBG O2 Saturation VBG Base Excess Sodium 142 Potassium 3.1 L Chloride 103 Carbon Dioxide 30 H Anion Gap 12 BUN 19 H Creatinine 0.60 Estim Creat Clear Calc 120.5 Estimated GFR > 60 POC Glucose 180 H 197 H Random Glucose 186 H Lactic Acid Lactic Acid F/U @ 2Hr Calcium 7.9 L Phosphorus Magnesium 1.5 L Total Bilirubin Direct Bilirubin AST ALT Alkaline Phosphatase Total Creatine Kinase Troponin I High Sens C-Reactive Protein B-Natriuretic Peptide Total Protein Albumin Procalcitonin Urine Color Urine Appearance Urine pH Ur Specific [place] Urine Protein Urine Glucose (UA) Urine Ketones Urine Blood Urine Nitrite Ur Leukocyte Esterase Urine RBC Urine WBC Ur Squamous Epith Cells Ur Transition Epith Cell Urine Bacteria Hyaline Casts Stool Occult Blood Vancomycin Trough Random Vancomycin Influenza Type A (PCR) Influenza Type B (PCR) RSV RNA Qual (PCR) SARS-CoV-2 RNA (RT-PCR) Blood Type Antibody Screen Crossmatch 11/02/24 11/03/24 11/03/24 23:17 05:25 05:25 WBC 16.1 H RBC 3.40 L Hgb 8.7 L Hct 28.1 L MCV 82.6 MCH 25.6 L MCHC 31.0 RDW 16.5 H Plt Count 113 L MPV 11.8 Immature Gran % (Auto) 0.7 H Neut % (Auto) 75.3 H Lymph % (Auto) 19.3 L [place] % (Auto) 3.5 Eos % (Auto) 0.9 Baso % (Auto) 0.3 Lymph # (Auto) 3.1 [place] # (Auto) 0.6 Eos # (Auto) 0.2 Baso # (Auto) 0.1 Abs Immat Gran (auto) 0.12 H Absolute Neuts (auto) 12.1 H Absolute Nucleated RBC 0.020 H Nucleated RBC % (auto) 0.1 Smear Tech's Comments PT INR APTT O2 Saturation ABG pH at Pt Temp ABG pCO2 at Pt Temp ABG pO2 at Pt Temp ABG HCO3 ABG Base Excess (Actual) VBG pH VBG pCO2 VBG pO2 VBG HCO3 VBG O2 Saturation VBG Base Excess Sodium 139 Potassium 3.2 L Chloride 100 Carbon Dioxide 29 Anion Gap 13 BUN 22 H Creatinine Cancelled 0.63 Estim Creat Clear Calc Cancelled Estimated GFR POC Glucose 214 H Random Glucose Lactic Acid Lactic Acid F/U @ 2Hr Calcium Phosphorus Magnesium Total Bilirubin Direct Bilirubin AST ALT Alkaline Phosphatase Total Creatine Kinase Troponin I High Sens C-Reactive Protein B-Natriuretic Peptide Total Protein Albumin Procalcitonin Urine Color Urine Appearance Urine pH Ur Specific [place] Urine Protein Urine Glucose (UA) Urine Ketones Urine Blood Urine Nitrite Ur Leukocyte Esterase Urine RBC Urine WBC Ur Squamous Epith Cells Ur Transition Epith Cell Urine Bacteria Hyaline Casts Stool Occult Blood Vancomycin Trough Random Vancomycin Influenza Type A (PCR) Influenza Type B (PCR) RSV RNA Qual (PCR) SARS-CoV-2 RNA (RT-PCR) Blood Type Antibody Screen Crossmatch 11/03/24 11/03/24 11/03/24 05:25 05:25 05:38 WBC RBC Hgb Hct MCV MCH MCHC RDW Plt Count MPV Immature Gran % (Auto) Neut % (Auto) Lymph % (Auto) [place] % (Auto) Eos % (Auto) Baso % (Auto) Lymph # (Auto) [place] # (Auto) Eos # (Auto) Baso # (Auto) Abs Immat Gran (auto) Absolute Neuts (auto) Absolute Nucleated RBC Nucleated RBC % (auto) Smear Tech's Comments PT INR APTT O2 Saturation ABG pH at Pt Temp ABG pCO2 at Pt Temp ABG pO2 at Pt Temp ABG HCO3 ABG Base Excess (Actual) VBG pH 7.44 H VBG pCO2 52 VBG pO2 42 VBG HCO3 36 H VBG O2 Saturation 63.0 VBG Base Excess 10.6 Sodium Potassium Chloride Carbon Dioxide Anion Gap BUN Creatinine Estim Creat Clear Calc 114.3 Estimated GFR Cancelled > 60 POC Glucose Random Glucose 245 H Lactic Acid Lactic Acid F/U @ 2Hr Calcium 7.8 L Phosphorus 2.0 L Magnesium 1.5 L Total Bilirubin 0.4 Direct Bilirubin AST 677 H ALT 906 H Alkaline Phosphatase 211 H Total Creatine Kinase Troponin I High Sens C-Reactive Protein B-Natriuretic Peptide Total Protein 6.0 L Albumin 2.7 L Procalcitonin Urine Color Urine Appearance Urine pH Ur Specific [place] Urine Protein Urine Glucose (UA) Urine Ketones Urine Blood Urine Nitrite Ur Leukocyte Esterase Urine RBC Urine WBC Ur Squamous Epith Cells Ur Transition Epith Cell Urine Bacteria Hyaline Casts Stool Occult Blood Vancomycin Trough Random Vancomycin Influenza Type A (PCR) Influenza Type B (PCR) RSV RNA Qual (PCR) SARS-CoV-2 RNA (RT-PCR) Blood Type Antibody Screen Crossmatch 11/03/24 11/03/24 11/03/24 06:07 11:44 12:28 WBC RBC Hgb Hct MCV MCH MCHC RDW Plt Count MPV Immature Gran % (Auto) Neut % (Auto) Lymph % (Auto) [place] % (Auto) Eos % (Auto) Baso % (Auto) Lymph # (Auto) [place] # (Auto) Eos # (Auto) Baso # (Auto) Abs Immat Gran (auto) Absolute Neuts (auto) Absolute Nucleated RBC Nucleated RBC % (auto) Smear Tech's Comments PT INR APTT O2 Saturation ABG pH at Pt Temp ABG pCO2 at Pt Temp ABG pO2 at Pt Temp ABG HCO3 ABG Base Excess (Actual) VBG pH VBG pCO2 VBG pO2 VBG HCO3 VBG O2 Saturation VBG Base Excess Sodium 139 Potassium 3.2 L Chloride 101 Carbon Dioxide 30 H Anion Gap 11 L BUN 21 H Creatinine 0.57 Estim Creat Clear Calc 126.3 Estimated GFR > 60 POC Glucose 213 H 200 H Random Glucose 227 H Lactic Acid Lactic Acid F/U @ 2Hr Calcium 7.6 L Phosphorus 1.9 L Magnesium Total Bilirubin 0.4 Direct Bilirubin AST 472 H ALT 804 H Alkaline Phosphatase 197 H Total Creatine Kinase Troponin I High Sens C-Reactive Protein B-Natriuretic Peptide Total Protein 5.8 L Albumin 2.6 L Procalcitonin Urine Color Urine Appearance Urine pH Ur Specific [place] Urine Protein Urine Glucose (UA) Urine Ketones Urine Blood Urine Nitrite Ur Leukocyte Esterase Urine RBC Urine WBC Ur Squamous Epith Cells Ur Transition Epith Cell Urine Bacteria Hyaline Casts Stool Occult Blood Vancomycin Trough Random Vancomycin Influenza Type A (PCR) Influenza Type B (PCR) RSV RNA Qual (PCR) SARS-CoV-2 RNA (RT-PCR) Blood Type Antibody Screen Crossmatch 11/03/24 11/03/24 11/04/24 14:59 17:38 00:08 WBC RBC Hgb Hct MCV MCH MCHC RDW Plt Count MPV Immature Gran % (Auto) Neut % (Auto) Lymph % (Auto) [place] % (Auto) Eos % (Auto) Baso % (Auto) Lymph # (Auto) [place] # (Auto) Eos # (Auto) Baso # (Auto) Abs Immat Gran (auto) Absolute Neuts (auto) Absolute Nucleated RBC Nucleated RBC % (auto) Smear Tech's Comments PT INR APTT O2 Saturation ABG pH at Pt Temp ABG pCO2 at Pt Temp ABG pO2 at Pt Temp ABG HCO3 ABG Base Excess (Actual) VBG pH VBG pCO2 VBG pO2 VBG HCO3 VBG O2 Saturation VBG Base Excess Sodium Potassium Chloride Carbon Dioxide Anion Gap BUN Creatinine Estim Creat Clear Calc Estimated GFR POC Glucose 231 H 209 H 186 H Random Glucose Lactic Acid Lactic Acid F/U @ 2Hr Calcium Phosphorus Magnesium Total Bilirubin Direct Bilirubin AST ALT Alkaline Phosphatase Total Creatine Kinase Troponin I High Sens C-Reactive Protein B-Natriuretic Peptide Total Protein Albumin Procalcitonin Urine Color Urine Appearance Urine pH Ur Specific [place] Urine Protein Urine Glucose (UA) Urine Ketones Urine Blood Urine Nitrite Ur Leukocyte Esterase Urine RBC Urine WBC Ur Squamous Epith Cells Ur Transition Epith Cell Urine Bacteria Hyaline Casts Stool Occult Blood Vancomycin Trough Random Vancomycin Influenza Type A (PCR) Influenza Type B (PCR) RSV RNA Qual (PCR) SARS-CoV-2 RNA (RT-PCR) Blood Type Antibody Screen Crossmatch 11/04/24 11/04/24 11/04/24 04:25 04:30 08:11 WBC 15.7 H RBC 3.60 L Hgb 9.2 L Hct 29.4 L MCV 81.7 MCH 25.6 L MCHC 31.3 RDW 16.5 H Plt Count 80 L D MPV 11.5 Immature Gran % (Auto) 1.1 H Neut % (Auto) 69.8 Lymph % (Auto) 21.6 [place] % (Auto) 4.9 Eos % (Auto) 2.3 Baso % (Auto) 0.3 Lymph # (Auto) 3.4 [place] # (Auto) 0.8 Eos # (Auto) 0.4 Baso # (Auto) 0.1 Abs Immat Gran (auto) 0.17 H Absolute Neuts (auto) 11.0 H Absolute Nucleated RBC 0.020 H Nucleated RBC % (auto) 0.1 Smear Tech's Comments VERIFIED PT INR APTT O2 Saturation 100.0 ABG pH at Pt Temp 7.55 H ABG pCO2 at Pt Temp 41 ABG pO2 at Pt Temp 127 H ABG HCO3 36 H ABG Base Excess (Actual) 13.2 VBG pH VBG pCO2 VBG pO2 VBG HCO3 VBG O2 Saturation VBG Base Excess Sodium 142 Potassium 2.8 L* Chloride 102 Carbon Dioxide 31 H Anion Gap 12 BUN 21 H Creatinine 0.51 Estim Creat Clear Calc 141.2 Estimated GFR > 60 POC Glucose Random Glucose 174 H Lactic Acid Lactic Acid F/U @ 2Hr Calcium 7.3 L Phosphorus 1.9 L Magnesium 1.4 L* Total Bilirubin 0.5 Direct Bilirubin AST 245 H ALT 603 H Alkaline Phosphatase 216 H Total Creatine Kinase Troponin I High Sens C-Reactive Protein B-Natriuretic Peptide Total Protein 6.0 L Albumin 2.5 L Procalcitonin Urine Color Urine Appearance Urine pH Ur Specific [place] Urine Protein Urine Glucose (UA) Urine Ketones Urine Blood Urine Nitrite Ur Leukocyte Esterase Urine RBC Urine WBC Ur Squamous Epith Cells Ur Transition Epith Cell Urine Bacteria Hyaline Casts Stool Occult Blood Vancomycin Trough 21.0 H Random Vancomycin Influenza Type A (PCR) Influenza Type B (PCR) RSV RNA Qual (PCR) SARS-CoV-2 RNA (RT-PCR) Blood Type Antibody Screen Crossmatch 11/04/24 11/04/24 11/04/24 11:56 17:25 20:45 WBC RBC Hgb Hct MCV MCH MCHC RDW Plt Count MPV Immature Gran % (Auto) Neut % (Auto) Lymph % (Auto) [place] % (Auto) Eos % (Auto) Baso % (Auto) Lymph # (Auto) [place] # (Auto) Eos # (Auto) Baso # (Auto) Abs Immat Gran (auto) Absolute Neuts (auto) Absolute Nucleated RBC Nucleated RBC % (auto) Smear Tech's Comments PT INR APTT O2 Saturation ABG pH at Pt Temp ABG pCO2 at Pt Temp ABG pO2 at Pt Temp ABG HCO3 ABG Base Excess (Actual) VBG pH VBG pCO2 VBG pO2 VBG HCO3 VBG O2 Saturation VBG Base Excess Sodium 145 Potassium 3.1 L Chloride 104 Carbon Dioxide 31 H Anion Gap 13 BUN 21 H Creatinine 0.54 Estim Creat Clear Calc 131.4 Estimated GFR > 60 POC Glucose 164 H 111 Random Glucose 137 H Lactic Acid Lactic Acid F/U @ 2Hr Calcium 7.2 L Phosphorus 3.3 Magnesium 1.7 Total Bilirubin 0.5 Direct Bilirubin AST 130 H ALT 419 H Alkaline Phosphatase 232 H Total Creatine Kinase Troponin I High Sens C-Reactive Protein B-Natriuretic Peptide Total Protein 6.1 L Albumin 2.5 L Procalcitonin Urine Color Urine Appearance Urine pH Ur Specific [place] Urine Protein Urine Glucose (UA) Urine Ketones Urine Blood Urine Nitrite Ur Leukocyte Esterase Urine RBC Urine WBC Ur Squamous Epith Cells Ur Transition Epith Cell Urine Bacteria Hyaline Casts Stool Occult Blood Vancomycin Trough Random Vancomycin Influenza Type A (PCR) Influenza Type B (PCR) RSV RNA Qual (PCR) SARS-CoV-2 RNA (RT-PCR) Blood Type Antibody Screen Crossmatch 11/04/24 11/05/24 11/05/24 23:05 04:20 04:29 WBC 13.7 H RBC 2.88 L Hgb 7.5 L Hct 24.7 L MCV 85.8 MCH 26.0 L MCHC 30.4 L RDW 16.6 H Plt Count 53 L D MPV 12.2 Immature Gran % (Auto) 0.8 H Neut % (Auto) 69.6 Lymph % (Auto) 21.6 [place] % (Auto) 6.6 Eos % (Auto) 1.2 Baso % (Auto) 0.2 Lymph # (Auto) 3.0 [place] # (Auto) 0.9 Eos # (Auto) 0.2 Baso # (Auto) 0.0 Abs Immat Gran (auto) 0.11 H Absolute Neuts (auto) 9.6 H Absolute Nucleated RBC 0.050 H Nucleated RBC % (auto) 0.4 H Smear Tech's Comments PT INR APTT O2 Saturation 100.0 ABG pH at Pt Temp 7.42 ABG pCO2 at Pt Temp 53 H ABG pO2 at Pt Temp 160 H ABG HCO3 34 H ABG Base Excess (Actual) 9.0 VBG pH VBG pCO2 VBG pO2 VBG HCO3 VBG O2 Saturation VBG Base Excess Sodium 145 Potassium 3.2 L Chloride 104 Carbon Dioxide 28 Anion Gap 16 BUN 20 H Creatinine 0.55 Estim Creat Clear Calc 129.1 Estimated GFR > 60 POC Glucose 153 H Random Glucose 232 H Lactic Acid Lactic Acid F/U @ 2Hr Calcium 7.1 L Phosphorus 3.1 Magnesium 1.6 Total Bilirubin 1.1 H Direct Bilirubin AST 71 H ALT 276 H Alkaline Phosphatase 157 H Total Creatine Kinase Troponin I High Sens C-Reactive Protein B-Natriuretic Peptide Total Protein 6.3 L Albumin 3.4 L Procalcitonin Urine Color Urine Appearance Urine pH Ur Specific [place] Urine Protein Urine Glucose (UA) Urine Ketones Urine Blood Urine Nitrite Ur Leukocyte Esterase Urine RBC Urine WBC Ur Squamous Epith Cells Ur Transition Epith Cell Urine Bacteria Hyaline Casts Stool Occult Blood Vancomycin Trough Random Vancomycin Influenza Type A (PCR) Influenza Type B (PCR) RSV RNA Qual (PCR) SARS-CoV-2 RNA (RT-PCR) Blood Type Antibody Screen Crossmatch 11/05/24 11/05/24 11/05/24 09:46 11:22 17:23 WBC RBC Hgb Hct MCV MCH MCHC RDW Plt Count MPV Immature Gran % (Auto) Neut % (Auto) Lymph % (Auto) [place] % (Auto) Eos % (Auto) Baso % (Auto) Lymph # (Auto) [place] # (Auto) Eos # (Auto) Baso # (Auto) Abs Immat Gran (auto) Absolute Neuts (auto) Absolute Nucleated RBC Nucleated RBC % (auto) Smear Tech's Comments PT INR APTT O2 Saturation ABG pH at Pt Temp ABG pCO2 at Pt Temp ABG pO2 at Pt Temp ABG HCO3 ABG Base Excess (Actual) VBG pH VBG pCO2 VBG pO2 VBG HCO3 VBG O2 Saturation VBG Base Excess Sodium Potassium Chloride Carbon Dioxide Anion Gap BUN Creatinine Estim Creat Clear Calc Estimated GFR POC Glucose 214 H 192 H Random Glucose Lactic Acid Lactic Acid F/U @ 2Hr Calcium Phosphorus Magnesium Total Bilirubin Direct Bilirubin AST ALT Alkaline Phosphatase Total Creatine Kinase Troponin I High Sens C-Reactive Protein B-Natriuretic Peptide Total Protein Albumin Procalcitonin Urine Color Urine Appearance Urine pH Ur Specific [place] Urine Protein Urine Glucose (UA) Urine Ketones Urine Blood Urine Nitrite Ur Leukocyte Esterase Urine RBC Urine WBC Ur Squamous Epith Cells Ur Transition Epith Cell Urine Bacteria Hyaline Casts Stool Occult Blood Vancomycin Trough Random Vancomycin 15.4 Influenza Type A (PCR) Influenza Type B (PCR) RSV RNA Qual (PCR) SARS-CoV-2 RNA (RT-PCR) Blood Type Antibody Screen Crossmatch 11/05/24 11/05/24 11/06/24 20:34 23:21 04:07 WBC 15.3 H 15.9 H RBC 3.10 L 3.11 L Hgb 8.0 L 8.1 L Hct 26.4 L 26.4 L MCV 85.2 84.9 MCH 25.8 L 26.0 L MCHC 30.3 L 30.7 L RDW 16.6 H 16.8 H Plt Count 50 L 50 L MPV 12.2 12.0 Immature Gran % (Auto) 0.8 H Neut % (Auto) 69.9 Lymph % (Auto) 20.9 [place] % (Auto) 6.8 Eos % (Auto) 1.3 Baso % (Auto) 0.3 Lymph # (Auto) 3.3 [place] # (Auto) 1.1 Eos # (Auto) 0.2 Baso # (Auto) 0.0 Abs Immat Gran (auto) 0.13 H Absolute Neuts (auto) 11.1 H Absolute Nucleated RBC 0.070 H 0.070 H Nucleated RBC % (auto) 0.5 H 0.4 H Smear Tech's Comments PT INR APTT O2 Saturation ABG pH at Pt Temp ABG pCO2 at Pt Temp ABG pO2 at Pt Temp ABG HCO3 ABG Base Excess (Actual) VBG pH VBG pCO2 VBG pO2 VBG HCO3 VBG O2 Saturation VBG Base Excess Sodium 143 143 Potassium 4.0 D 3.5 Chloride 106 104 Carbon Dioxide 27 28 Anion Gap 14 15 BUN 21 H 20 H Creatinine 0.55 0.59 Estim Creat Clear Calc 130.3 121.5 Estimated GFR > 60 > 60 POC Glucose 220 H Random Glucose 214 H 236 H Lactic Acid Lactic Acid F/U @ 2Hr Calcium 7.2 L 7.3 L Phosphorus 2.2 L 2.2 L Magnesium 1.5 L 1.6 Total Bilirubin 0.7 0.6 Direct Bilirubin AST 51 H 45 H ALT 212 H 187 H Alkaline Phosphatase 163 H 169 H Total Creatine Kinase Troponin I High Sens C-Reactive Protein B-Natriuretic Peptide Total Protein 6.1 L 6.2 L Albumin 3.0 L 3.0 L Procalcitonin Urine Color Urine Appearance Urine pH Ur Specific [place] Urine Protein Urine Glucose (UA) Urine Ketones Urine Blood Urine Nitrite Ur Leukocyte Esterase Urine RBC Urine WBC Ur Squamous Epith Cells Ur Transition Epith Cell Urine Bacteria Hyaline Casts Stool Occult Blood Vancomycin Trough Random Vancomycin Influenza Type A (PCR) Influenza Type B (PCR) RSV RNA Qual (PCR) SARS-CoV-2 RNA (RT-PCR) Blood Type Antibody Screen Crossmatch 11/06/24 11/06/24 11/06/24 04:11 10:00 11:57 WBC RBC Hgb Hct MCV MCH MCHC RDW Plt Count MPV Immature Gran % (Auto) Neut % (Auto) Lymph % (Auto) [place] % (Auto) Eos % (Auto) Baso % (Auto) Lymph # (Auto) [place] # (Auto) Eos # (Auto) Baso # (Auto) Abs Immat Gran (auto) Absolute Neuts (auto) Absolute Nucleated RBC Nucleated RBC % (auto) Smear Tech's Comments PT INR APTT O2 Saturation 95.0 ABG pH at Pt Temp 7.40 ABG pCO2 at Pt Temp 54 H ABG pO2 at Pt Temp 77 L ABG HCO3 34 H ABG Base Excess (Actual) 8.4 VBG pH VBG pCO2 VBG pO2 VBG HCO3 VBG O2 Saturation VBG Base Excess Sodium Potassium Chloride Carbon Dioxide Anion Gap BUN Creatinine Estim Creat Clear Calc Estimated GFR POC Glucose 215 H Random Glucose Lactic Acid Lactic Acid F/U @ 2Hr Calcium Phosphorus Magnesium Total Bilirubin Direct Bilirubin AST ALT Alkaline Phosphatase Total Creatine Kinase Troponin I High Sens C-Reactive Protein B-Natriuretic Peptide Total Protein Albumin Procalcitonin Urine Color Urine Appearance Urine pH Ur Specific [place] Urine Protein Urine Glucose (UA) Urine Ketones Urine Blood Urine Nitrite Ur Leukocyte Esterase Urine RBC Urine WBC Ur Squamous Epith Cells Ur Transition Epith Cell Urine Bacteria Hyaline Casts Stool Occult Blood Vancomycin Trough Random Vancomycin 17.8 Influenza Type A (PCR) Influenza Type B (PCR) RSV RNA Qual (PCR) SARS-CoV-2 RNA (RT-PCR) Blood Type Antibody Screen Crossmatch 11/06/24 11/06/24 11/06/24 17:57 18:13 23:54 WBC RBC Hgb Hct MCV MCH MCHC RDW Plt Count MPV Immature Gran % (Auto) Neut % (Auto) Lymph % (Auto) [place] % (Auto) Eos % (Auto) Baso % (Auto) Lymph # (Auto) [place] # (Auto) Eos # (Auto) Baso # (Auto) Abs Immat Gran (auto) Absolute Neuts (auto) Absolute Nucleated RBC Nucleated RBC % (auto) Smear Tech's Comments PT INR APTT O2 Saturation ABG pH at Pt Temp ABG pCO2 at Pt Temp ABG pO2 at Pt Temp ABG HCO3 ABG Base Excess (Actual) VBG pH VBG pCO2 VBG pO2 VBG HCO3 VBG O2 Saturation VBG Base Excess Sodium 143 Potassium 3.7 Chloride 103 Carbon Dioxide 32 H Anion Gap 12 BUN 18 H Creatinine 0.57 Estim Creat Clear Calc 125.7 Estimated GFR > 60 POC Glucose 205 H 206 H Random Glucose 222 H Lactic Acid Lactic Acid F/U @ 2Hr Calcium 7.9 L D Phosphorus 2.7 Magnesium 1.5 L Total Bilirubin Direct Bilirubin AST ALT Alkaline Phosphatase Total Creatine Kinase Troponin I High Sens C-Reactive Protein B-Natriuretic Peptide Total Protein Albumin Procalcitonin Urine Color Urine Appearance Urine pH Ur Specific [place] Urine Protein Urine Glucose (UA) Urine Ketones Urine Blood Urine Nitrite Ur Leukocyte Esterase Urine RBC Urine WBC Ur Squamous Epith Cells Ur Transition Epith Cell Urine Bacteria Hyaline Casts Stool Occult Blood Vancomycin Trough Random Vancomycin Influenza Type A (PCR) Influenza Type B (PCR) RSV RNA Qual (PCR) SARS-CoV-2 RNA (RT-PCR) Blood Type Antibody Screen Crossmatch 11/07/24 11/07/24 11/07/24 05:27 05:28 05:32 WBC 17.3 H RBC 3.09 L Hgb 7.9 L Hct 26.0 L MCV 84.1 MCH 25.6 L MCHC 30.4 L RDW 16.6 H Plt Count 70 L D MPV 12.1 Immature Gran % (Auto) 0.9 H Neut % (Auto) 73.6 H Lymph % (Auto) 17.8 L [place] % (Auto) 5.0 Eos % (Auto) 2.5 Baso % (Auto) 0.2 Lymph # (Auto) 3.1 [place] # (Auto) 0.9 Eos # (Auto) 0.4 Baso # (Auto) 0.0 Abs Immat Gran (auto) 0.15 H Absolute Neuts (auto) 12.7 H Absolute Nucleated RBC 0.020 H Nucleated RBC % (auto) 0.1 Smear Tech's Comments PT INR APTT O2 Saturation ABG pH at Pt Temp ABG pCO2 at Pt Temp ABG pO2 at Pt Temp ABG HCO3 ABG Base Excess (Actual) VBG pH 7.62 H* VBG pCO2 42 VBG pO2 43 VBG HCO3 43 H VBG O2 Saturation 74.0 VBG Base Excess 20.4 Sodium 143 Potassium 3.2 L Chloride 100 Carbon Dioxide 34 H Anion Gap 12 BUN 19 H Creatinine 0.56 Estim Creat Clear Calc 122.3 Estimated GFR > 60 POC Glucose 184 H Random Glucose 204 H Lactic Acid Lactic Acid F/U @ 2Hr Calcium 8.0 L Phosphorus 2.1 L Magnesium 1.6 Total Bilirubin Direct Bilirubin AST ALT Alkaline Phosphatase Total Creatine Kinase Troponin I High Sens C-Reactive Protein B-Natriuretic Peptide Total Protein Albumin 2.7 L Procalcitonin Urine Color Urine Appearance Urine pH Ur Specific [place] Urine Protein Urine Glucose (UA) Urine Ketones Urine Blood Urine Nitrite Ur Leukocyte Esterase Urine RBC Urine WBC Ur Squamous Epith Cells Ur Transition Epith Cell Urine Bacteria Hyaline Casts Stool Occult Blood Vancomycin Trough Random Vancomycin Influenza Type A (PCR) Influenza Type B (PCR) RSV RNA Qual (PCR) SARS-CoV-2 RNA (RT-PCR) Blood Type Antibody Screen Crossmatch 11/07/24 11/07/24 11/07/24 10:24 11:54 17:17 WBC RBC Hgb Hct MCV MCH MCHC RDW Plt Count MPV Immature Gran % (Auto) Neut % (Auto) Lymph % (Auto) [place] % (Auto) Eos % (Auto) Baso % (Auto) Lymph # (Auto) [place] # (Auto) Eos # (Auto) Baso # (Auto) Abs Immat Gran (auto) Absolute Neuts (auto) Absolute Nucleated RBC Nucleated RBC % (auto) Smear Tech's Comments PT INR APTT O2 Saturation ABG pH at Pt Temp ABG pCO2 at Pt Temp ABG pO2 at Pt Temp ABG HCO3 ABG Base Excess (Actual) VBG pH VBG pCO2 VBG pO2 VBG HCO3 VBG O2 Saturation VBG Base Excess Sodium Potassium Chloride Carbon Dioxide Anion Gap BUN Creatinine Estim Creat Clear Calc Estimated GFR POC Glucose 229 H 189 H Random Glucose Lactic Acid Lactic Acid F/U @ 2Hr Calcium Phosphorus Magnesium Total Bilirubin Direct Bilirubin AST ALT Alkaline Phosphatase Total Creatine Kinase Troponin I High Sens C-Reactive Protein B-Natriuretic Peptide Total Protein Albumin Procalcitonin Urine Color Urine Appearance Urine pH Ur Specific [place] Urine Protein Urine Glucose (UA) Urine Ketones Urine Blood Urine Nitrite Ur Leukocyte Esterase Urine RBC Urine WBC Ur Squamous Epith Cells Ur Transition Epith Cell Urine Bacteria Hyaline Casts Stool Occult Blood Vancomycin Trough Random Vancomycin 19.4 Influenza Type A (PCR) Influenza Type B (PCR) RSV RNA Qual (PCR) SARS-CoV-2 RNA (RT-PCR) Blood Type Antibody Screen Crossmatch 11/07/24 11/08/24 11/08/24 18:06 00:14 05:24 WBC 16.9 H RBC 2.93 L Hgb 7.5 L Hct 24.3 L MCV 82.9 MCH 25.6 L MCHC 30.9 L RDW 16.6 H Plt Count 88 L D MPV 12.7 H Immature Gran % (Auto) 0.7 H Neut % (Auto) 67.5 Lymph % (Auto) 22.4 [place] % (Auto) 5.4 Eos % (Auto) 3.8 Baso % (Auto) 0.2 Lymph # (Auto) 3.8 [place] # (Auto) 0.9 Eos # (Auto) 0.6 H Baso # (Auto) 0.0 Abs Immat Gran (auto) 0.11 H Absolute Neuts (auto) 11.4 H Absolute Nucleated RBC 0.030 H Nucleated RBC % (auto) 0.2 Smear Tech's Comments PT INR APTT O2 Saturation ABG pH at Pt Temp ABG pCO2 at Pt Temp ABG pO2 at Pt Temp ABG HCO3 ABG Base Excess (Actual) VBG pH 7.54 H VBG pCO2 53 VBG pO2 47 VBG HCO3 46 H VBG O2 Saturation 76.0 VBG Base Excess 21.5 Sodium 144 Potassium 3.2 L Chloride 95 L Carbon Dioxide 40 H* Anion Gap 12 BUN 19 H Creatinine 0.56 Estim Creat Clear Calc 122.3 Estimated GFR > 60 POC Glucose 239 H Random Glucose 213 H Lactic Acid Lactic Acid F/U @ 2Hr Calcium 8.5 D Phosphorus 2.9 Magnesium 1.6 Total Bilirubin Direct Bilirubin AST ALT Alkaline Phosphatase Total Creatine Kinase Troponin I High Sens C-Reactive Protein B-Natriuretic Peptide Total Protein Albumin Procalcitonin Urine Color Urine Appearance Urine pH Ur Specific [place] Urine Protein Urine Glucose (UA) Urine Ketones Urine Blood Urine Nitrite Ur Leukocyte Esterase Urine RBC Urine WBC Ur Squamous Epith Cells Ur Transition Epith Cell Urine Bacteria Hyaline Casts Stool Occult Blood Vancomycin Trough Random Vancomycin Influenza Type A (PCR) Influenza Type B (PCR) RSV RNA Qual (PCR) SARS-CoV-2 RNA (RT-PCR) Blood Type Antibody Screen Crossmatch 11/08/24 11/08/24 11/08/24 05:25 06:03 11:15 WBC RBC Hgb Hct MCV MCH MCHC RDW Plt Count MPV Immature Gran % (Auto) Neut % (Auto) Lymph % (Auto) [place] % (Auto) Eos % (Auto) Baso % (Auto) Lymph # (Auto) [place] # (Auto) Eos # (Auto) Baso # (Auto) Abs Immat Gran (auto) Absolute Neuts (auto) Absolute Nucleated RBC Nucleated RBC % (auto) Smear Tech's Comments PT INR APTT O2 Saturation ABG pH at Pt Temp ABG pCO2 at Pt Temp ABG pO2 at Pt Temp ABG HCO3 ABG Base Excess (Actual) VBG pH VBG pCO2 VBG pO2 VBG HCO3 VBG O2 Saturation VBG Base Excess Sodium 142 Potassium 3.0 L Chloride 93 L Carbon Dioxide 37 H Anion Gap 15 BUN 18 H Creatinine 0.59 Estim Creat Clear Calc 116.1 Estimated GFR > 60 POC Glucose 188 H 242 H Random Glucose 213 H Lactic Acid Lactic Acid F/U @ 2Hr Calcium 8.2 L Phosphorus 2.7 Magnesium 1.6 Total Bilirubin Direct Bilirubin AST ALT Alkaline Phosphatase Total Creatine Kinase Troponin I High Sens C-Reactive Protein B-Natriuretic Peptide Total Protein Albumin 3.0 L Procalcitonin Urine Color Urine Appearance Urine pH Ur Specific [place] Urine Protein Urine Glucose (UA) Urine Ketones Urine Blood Urine Nitrite Ur Leukocyte Esterase Urine RBC Urine WBC Ur Squamous Epith Cells Ur Transition Epith Cell Urine Bacteria Hyaline Casts Stool Occult Blood Vancomycin Trough Random Vancomycin Influenza Type A (PCR) Influenza Type B (PCR) RSV RNA Qual (PCR) SARS-CoV-2 RNA (RT-PCR) Blood Type Antibody Screen Crossmatch 11/08/24 11/08/24 11/08/24 17:28 18:04 23:28 WBC RBC Hgb Hct MCV MCH MCHC RDW Plt Count MPV Immature Gran % (Auto) Neut % (Auto) Lymph % (Auto) [place] % (Auto) Eos % (Auto) Baso % (Auto) Lymph # (Auto) [place] # (Auto) Eos # (Auto) Baso # (Auto) Abs Immat Gran (auto) Absolute Neuts (auto) Absolute Nucleated RBC Nucleated RBC % (auto) Smear Tech's Comments PT INR APTT O2 Saturation ABG pH at Pt Temp ABG pCO2 at Pt Temp ABG pO2 at Pt Temp ABG HCO3 ABG Base Excess (Actual) VBG pH VBG pCO2 VBG pO2 VBG HCO3 VBG O2 Saturation VBG Base Excess Sodium 142 Potassium 2.7 L* Chloride 91 L Carbon Dioxide 42 H* Anion Gap 12 BUN 19 H Creatinine 0.54 Estim Creat Clear Calc 126.9 Estimated GFR > 60 POC Glucose 198 H 222 H Random Glucose 209 H Lactic Acid Lactic Acid F/U @ 2Hr Calcium 8.5 Phosphorus 2.8 Magnesium 1.7 Total Bilirubin Direct Bilirubin AST ALT Alkaline Phosphatase Total Creatine Kinase Troponin I High Sens C-Reactive Protein B-Natriuretic Peptide Total Protein Albumin Procalcitonin Urine Color Urine Appearance Urine pH Ur Specific [place] Urine Protein Urine Glucose (UA) Urine Ketones Urine Blood Urine Nitrite Ur Leukocyte Esterase Urine RBC Urine WBC Ur Squamous Epith Cells Ur Transition Epith Cell Urine Bacteria Hyaline Casts Stool Occult Blood Vancomycin Trough Random Vancomycin 17.6 Influenza Type A (PCR) Influenza Type B (PCR) RSV RNA Qual (PCR) SARS-CoV-2 RNA (RT-PCR) Blood Type Antibody Screen Crossmatch 11/09/24 11/09/24 11/09/24 05:19 05:26 05:47 WBC 16.3 H RBC 2.93 L Hgb 7.5 L Hct 24.7 L MCV 84.3 MCH 25.6 L MCHC 30.4 L RDW 16.9 H Plt Count 110 L MPV 12.5 H Immature Gran % (Auto) 0.7 H Neut % (Auto) 63.6 Lymph % (Auto) 25.0 [place] % (Auto) 6.1 Eos % (Auto) 4.2 H Baso % (Auto) 0.4 Lymph # (Auto) 4.1 [place] # (Auto) 1.0 Eos # (Auto) 0.7 H Baso # (Auto) 0.1 Abs Immat Gran (auto) 0.12 H Absolute Neuts (auto) 10.4 H Absolute Nucleated RBC 0.020 H Nucleated RBC % (auto) 0.1 Smear Tech's Comments PT INR APTT O2 Saturation ABG pH at Pt Temp ABG pCO2 at Pt Temp ABG pO2 at Pt Temp ABG HCO3 ABG Base Excess (Actual) VBG pH 7.51 H VBG pCO2 58 VBG pO2 65 VBG HCO3 47 H VBG O2 Saturation Not Reportable VBG Base Excess 21.5 Sodium 142 Potassium 3.5 D Chloride 93 L Carbon Dioxide 38 H Anion Gap 15 BUN 21 H Creatinine 0.57 Estim Creat Clear Calc 122.8 Estimated GFR > 60 POC Glucose 177 H Random Glucose 177 H Lactic Acid Lactic Acid F/U @ 2Hr Calcium 8.5 Phosphorus 2.5 L Magnesium 1.7 Total Bilirubin Direct Bilirubin AST ALT Alkaline Phosphatase Total Creatine Kinase Troponin I High Sens C-Reactive Protein B-Natriuretic Peptide Total Protein Albumin 3.1 L Procalcitonin Urine Color Urine Appearance Urine pH Ur Specific [place] Urine Protein Urine Glucose (UA) Urine Ketones Urine Blood Urine Nitrite Ur Leukocyte Esterase Urine RBC Urine WBC Ur Squamous Epith Cells Ur Transition Epith Cell Urine Bacteria Hyaline Casts Stool Occult Blood Vancomycin Trough Random Vancomycin Influenza Type A (PCR) Influenza Type B (PCR) RSV RNA Qual (PCR) SARS-CoV-2 RNA (RT-PCR) Blood Type Antibody Screen Crossmatch 11/09/24 11/09/24 11/09/24 11:18 18:35 18:40 WBC RBC Hgb Hct MCV MCH MCHC RDW Plt Count MPV Immature Gran % (Auto) Neut % (Auto) Lymph % (Auto) [place] % (Auto) Eos % (Auto) Baso % (Auto) Lymph # (Auto) [place] # (Auto) Eos # (Auto) Baso # (Auto) Abs Immat Gran (auto) Absolute Neuts (auto) Absolute Nucleated RBC Nucleated RBC % (auto) Smear Tech's Comments PT INR APTT O2 Saturation ABG pH at Pt Temp ABG pCO2 at Pt Temp ABG pO2 at Pt Temp ABG HCO3 ABG Base Excess (Actual) VBG pH VBG pCO2 VBG pO2 VBG HCO3 VBG O2 Saturation VBG Base Excess Sodium 144 Potassium 3.5 Chloride 96 Carbon Dioxide 34 H Anion Gap 18 BUN 27 H Creatinine 0.62 Estim Creat Clear Calc 112.9 Estimated GFR > 60 POC Glucose 184 H 187 H Random Glucose 199 H Lactic Acid Lactic Acid F/U @ 2Hr Calcium 8.8 Phosphorus 3.5 Magnesium 1.8 Total Bilirubin Direct Bilirubin AST ALT Alkaline Phosphatase Total Creatine Kinase Troponin I High Sens C-Reactive Protein B-Natriuretic Peptide Total Protein Albumin Procalcitonin Urine Color Urine Appearance Urine pH Ur Specific [place] Urine Protein Urine Glucose (UA) Urine Ketones Urine Blood Urine Nitrite Ur Leukocyte Esterase Urine RBC Urine WBC Ur Squamous Epith Cells Ur Transition Epith Cell Urine Bacteria Hyaline Casts Stool Occult Blood Vancomycin Trough Random Vancomycin 15.6 Influenza Type A (PCR) Influenza Type B (PCR) RSV RNA Qual (PCR) SARS-CoV-2 RNA (RT-PCR) Blood Type Antibody Screen Crossmatch 11/10/24 11/10/24 11/10/24 00:14 05:30 05:31 WBC 15.3 H RBC 2.83 L Hgb 7.3 L Hct 24.3 L MCV 85.9 MCH 25.8 L MCHC 30.0 L RDW 17.3 H Plt Count 147 L D MPV 12.0 Immature Gran % (Auto) 0.6 H Neut % (Auto) 68.8 Lymph % (Auto) 21.2 [place] % (Auto) 5.5 Eos % (Auto) 3.4 Baso % (Auto) 0.5 Lymph # (Auto) 3.3 [place] # (Auto) 0.8 Eos # (Auto) 0.5 H Baso # (Auto) 0.1 Abs Immat Gran (auto) 0.10 H Absolute Neuts (auto) 10.6 H Absolute Nucleated RBC 0.020 H Nucleated RBC % (auto) 0.1 Smear Tech's Comments PT INR APTT O2 Saturation ABG pH at Pt Temp ABG pCO2 at Pt Temp ABG pO2 at Pt Temp ABG HCO3 ABG Base Excess (Actual) VBG pH 7.52 H VBG pCO2 60 VBG pO2 38 VBG HCO3 50 H VBG O2 Saturation 55.0 VBG Base Excess 24.6 Sodium 144 Potassium 3.0 L Chloride 94 L Carbon Dioxide 37 H Anion Gap 16 BUN 28 H Creatinine 0.61 Estim Creat Clear Calc 114.8 Estimated GFR > 60 POC Glucose 179 H Random Glucose 199 H Lactic Acid Lactic Acid F/U @ 2Hr Calcium 8.3 L Phosphorus 3.5 Magnesium 1.8 Total Bilirubin Direct Bilirubin AST ALT Alkaline Phosphatase Total Creatine Kinase Troponin I High Sens C-Reactive Protein B-Natriuretic Peptide Total Protein Albumin 2.9 L Procalcitonin Urine Color Urine Appearance Urine pH Ur Specific [place] Urine Protein Urine Glucose (UA) Urine Ketones Urine Blood Urine Nitrite Ur Leukocyte Esterase Urine RBC Urine WBC Ur Squamous Epith Cells Ur Transition Epith Cell Urine Bacteria Hyaline Casts Stool Occult Blood Vancomycin Trough Random Vancomycin Influenza Type A (PCR) Influenza Type B (PCR) RSV RNA Qual (PCR) SARS-CoV-2 RNA (RT-PCR) Blood Type Antibody Screen Crossmatch 11/10/24 11/10/24 11/10/24 06:25 12:08 17:27 WBC RBC Hgb Hct MCV MCH MCHC RDW Plt Count MPV Immature Gran % (Auto) Neut % (Auto) Lymph % (Auto) [place] % (Auto) Eos % (Auto) Baso % (Auto) Lymph # (Auto) [place] # (Auto) Eos # (Auto) Baso # (Auto) Abs Immat Gran (auto) Absolute Neuts (auto) Absolute Nucleated RBC Nucleated RBC % (auto) Smear Tech's Comments PT INR APTT O2 Saturation ABG pH at Pt Temp ABG pCO2 at Pt Temp ABG pO2 at Pt Temp ABG HCO3 ABG Base Excess (Actual) VBG pH VBG pCO2 VBG pO2 VBG HCO3 VBG O2 Saturation VBG Base Excess Sodium Potassium Chloride Carbon Dioxide Anion Gap BUN Creatinine Estim Creat Clear Calc Estimated GFR POC Glucose 204 H 163 H 169 H Random Glucose Lactic Acid Lactic Acid F/U @ 2Hr Calcium Phosphorus Magnesium Total Bilirubin Direct Bilirubin AST ALT Alkaline Phosphatase Total Creatine Kinase Troponin I High Sens C-Reactive Protein B-Natriuretic Peptide Total Protein Albumin Procalcitonin Urine Color Urine Appearance Urine pH Ur Specific [place] Urine Protein Urine Glucose (UA) Urine Ketones Urine Blood Urine Nitrite Ur Leukocyte Esterase Urine RBC Urine WBC Ur Squamous Epith Cells Ur Transition Epith Cell Urine Bacteria Hyaline Casts Stool Occult Blood Vancomycin Trough Random Vancomycin Influenza Type A (PCR) Influenza Type B (PCR) RSV RNA Qual (PCR) SARS-CoV-2 RNA (RT-PCR) Blood Type Antibody Screen Crossmatch 11/10/24 11/10/24 11/11/24 17:58 23:10 05:20 WBC 18.6 H RBC 2.44 L Hgb 6.3 L* Hct 21.5 L MCV 88.1 MCH 25.8 L MCHC 29.3 L RDW 18.0 H Plt Count 193 D MPV 12.0 Immature Gran % (Auto) 0.5 H Neut % (Auto) 61.0 Lymph % (Auto) 27.1 [place] % (Auto) 6.3 Eos % (Auto) 4.7 H Baso % (Auto) 0.4 Lymph # (Auto) 5.1 H [place] # (Auto) 1.2 Eos # (Auto) 0.9 H Baso # (Auto) 0.1 Abs Immat Gran (auto) 0.10 H Absolute Neuts (auto) 11.4 H Absolute Nucleated RBC 0.020 H Nucleated RBC % (auto) 0.1 Smear Tech's Comments VERIFIED PT INR APTT O2 Saturation ABG pH at Pt Temp ABG pCO2 at Pt Temp ABG pO2 at Pt Temp ABG HCO3 ABG Base Excess (Actual) VBG pH VBG pCO2 VBG pO2 VBG HCO3 VBG O2 Saturation VBG Base Excess Sodium 145 145 Potassium 2.9 L* 3.7 D Chloride 97 100 Carbon Dioxide 39 H 36 H Anion Gap 12 13 BUN 35 H 39 H Creatinine 0.67 0.64 Estim Creat Clear Calc 104.5 109.4 Estimated GFR > 60 > 60 POC Glucose 189 H Random Glucose 191 H 210 H Lactic Acid Lactic Acid F/U @ 2Hr Calcium 8.6 8.1 L Phosphorus 3.5 3.5 Magnesium 2.1 2.0 Total Bilirubin Direct Bilirubin AST ALT Alkaline Phosphatase Total Creatine Kinase Troponin I High Sens C-Reactive Protein B-Natriuretic Peptide Total Protein Albumin 2.7 L Procalcitonin Urine Color Urine Appearance Urine pH Ur Specific [place] Urine Protein Urine Glucose (UA) Urine Ketones Urine Blood Urine Nitrite Ur Leukocyte Esterase Urine RBC Urine WBC Ur Squamous Epith Cells Ur Transition Epith Cell Urine Bacteria Hyaline Casts Stool Occult Blood Vancomycin Trough Random Vancomycin Influenza Type A (PCR) Influenza Type B (PCR) RSV RNA Qual (PCR) SARS-CoV-2 RNA (RT-PCR) Blood Type Antibody Screen Crossmatch 11/11/24 11/11/24 11/11/24 05:26 06:02 06:23 WBC RBC Hgb Hct MCV MCH MCHC RDW Plt Count MPV Immature Gran % (Auto) Neut % (Auto) Lymph % (Auto) [place] % (Auto) Eos % (Auto) Baso % (Auto) Lymph # (Auto) [place] # (Auto) Eos # (Auto) Baso # (Auto) Abs Immat Gran (auto) Absolute Neuts (auto) Absolute Nucleated RBC Nucleated RBC % (auto) Smear Tech's Comments PT INR APTT O2 Saturation ABG pH at Pt Temp ABG pCO2 at Pt Temp ABG pO2 at Pt Temp ABG HCO3 ABG Base Excess (Actual) VBG pH 7.55 H VBG pCO2 52 VBG pO2 33 VBG HCO3 46 H VBG O2 Saturation 48.0 VBG Base Excess 21.6 Sodium Potassium Chloride Carbon Dioxide Anion Gap BUN Creatinine Estim Creat Clear Calc Estimated GFR POC Glucose Random Glucose Lactic Acid Lactic Acid F/U @ 2Hr Calcium Phosphorus Magnesium Total Bilirubin Direct Bilirubin AST ALT Alkaline Phosphatase Total Creatine Kinase Troponin I High Sens C-Reactive Protein B-Natriuretic Peptide Total Protein Albumin Procalcitonin Urine Color Urine Appearance Urine pH Ur Specific [place] Urine Protein Urine Glucose (UA) Urine Ketones Urine Blood Urine Nitrite Ur Leukocyte Esterase Urine RBC Urine WBC Ur Squamous Epith Cells Ur Transition Epith Cell Urine Bacteria Hyaline Casts Stool Occult Blood Vancomycin Trough Random Vancomycin Influenza Type A (PCR) Influenza Type B (PCR) RSV RNA Qual (PCR) SARS-CoV-2 RNA (RT-PCR) Blood Type A Negative Antibody Screen NEGATIVE Crossmatch See Detail See Detail 11/11/24 11/11/24 11/11/24 07:11 09:55 11:06 WBC 18.7 H RBC 2.70 L Hgb 7.3 L Hct 23.2 L MCV 85.9 MCH 27.0 MCHC 31.5 RDW 16.0 Plt Count 172 MPV 11.3 Immature Gran % (Auto) 0.7 H Neut % (Auto) 70.4 Lymph % (Auto) 19.6 L [place] % (Auto) 7.4 Eos % (Auto) 1.5 Baso % (Auto) 0.4 Lymph # (Auto) 3.7 [place] # (Auto) 1.4 H Eos # (Auto) 0.3 Baso # (Auto) 0.1 Abs Immat Gran (auto) 0.13 H Absolute Neuts (auto) 13.2 H Absolute Nucleated RBC 0.040 H Nucleated RBC % (auto) 0.2 Smear Tech's Comments PT INR APTT O2 Saturation ABG pH at Pt Temp ABG pCO2 at Pt Temp ABG pO2 at Pt Temp ABG HCO3 ABG Base Excess (Actual) VBG pH VBG pCO2 VBG pO2 VBG HCO3 VBG O2 Saturation VBG Base Excess Sodium 149 H Potassium 3.0 L Chloride 99 Carbon Dioxide 38 H Anion Gap 15 BUN 39 H Creatinine 0.66 Estim Creat Clear Calc 106.1 Estimated GFR > 60 POC Glucose 248 H Random Glucose 161 H Lactic Acid Lactic Acid F/U @ 2Hr Calcium 9.8 D Phosphorus 4.9 H Magnesium 2.1 Total Bilirubin Direct Bilirubin AST ALT Alkaline Phosphatase Total Creatine Kinase 22 L Troponin I High Sens C-Reactive Protein B-Natriuretic Peptide Total Protein Albumin Procalcitonin Urine Color Urine Appearance Urine pH Ur Specific [place] Urine Protein Urine Glucose (UA) Urine Ketones Urine Blood Urine Nitrite Ur Leukocyte Esterase Urine RBC Urine WBC Ur Squamous Epith Cells Ur Transition Epith Cell Urine Bacteria Hyaline Casts Stool Occult Blood Vancomycin Trough Random Vancomycin Influenza Type A (PCR) Influenza Type B (PCR) RSV RNA Qual (PCR) SARS-CoV-2 RNA (RT-PCR) Blood Type Antibody Screen Crossmatch 11/11/24 11/11/24 12:35 13:32 WBC RBC Hgb Hct MCV MCH MCHC RDW Plt Count MPV Immature Gran % (Auto) Neut % (Auto) Lymph % (Auto) [place] % (Auto) Eos % (Auto) Baso % (Auto) Lymph # (Auto) [place] # (Auto) Eos # (Auto) Baso # (Auto) Abs Immat Gran (auto) Absolute Neuts (auto) Absolute Nucleated RBC Nucleated RBC % (auto) Smear Tech's Comments PT INR APTT O2 Saturation ABG pH at Pt Temp ABG pCO2 at Pt Temp ABG pO2 at Pt Temp ABG HCO3 ABG Base Excess (Actual) VBG pH VBG pCO2 VBG pO2 VBG HCO3 VBG O2 Saturation VBG Base Excess Sodium Potassium Chloride Carbon Dioxide Anion Gap BUN Creatinine Estim Creat Clear Calc Estimated GFR POC Glucose 158 H Random Glucose Lactic Acid Lactic Acid F/U @ 2Hr Calcium Phosphorus Magnesium Total Bilirubin Direct Bilirubin AST ALT Alkaline Phosphatase Total Creatine Kinase Troponin I High Sens C-Reactive Protein B-Natriuretic Peptide Total Protein Albumin Procalcitonin Urine Color Urine Appearance Urine pH Ur Specific [place] Urine Protein Urine Glucose (UA) Urine Ketones Urine Blood Urine Nitrite Ur Leukocyte Esterase Urine RBC Urine WBC Ur Squamous Epith Cells Ur Transition Epith Cell Urine Bacteria Hyaline Casts Stool Occult Blood NEGATIVE Vancomycin Trough Random Vancomycin Influenza Type A (PCR) Influenza Type B (PCR) RSV RNA Qual (PCR) SARS-CoV-2 RNA (RT-PCR) Blood Type Antibody Screen Crossmatch Airway Mallampati Class: Patient Non-Cooperative (intubated) Heart: RRR Lungs: CTA Assessment and Plan Assessment Anesthesia Assessment: Anesthesia Plan Discussed and Chart Reviewed Final Anesthetic Review Family History of Problems with Anesthesia: No History of Problems with Anesthesia: No NPO: Yes ASA Class: IV and Emergency Final Preanesthetic Review: No Changes in Pt Med Stat, Meds/Allgs Chart Reviewed, Consent Obtained/Reviewed and Anes Risks/Benef Reviewed Patient Risk: High Procedure Risk: Intermediate Anesthetic Plan Anesthetic Plan: GA Disposition: Inp. Admit - ICU
--- NOTE | 2024-11-11 17:46 | MHC.SHP ---
Pre-Procedural Eval Section A - 24 Hr Update-Section A only Date of Service: 11/11/24 The patient is an INPATIENT: Yes Changes since office visit: Yes Patient answered all questions The patient has been examined within 24 hours of the surgical procedure. The History & Physical has been completed within 30 days and I have reviewed it.: Yes Section B - Complete if H&P > 30 days Chief Complaint: Sepsis, Met Encephalopathy, UTI Allergies: Allergies Allergy/AdvReac Type Severity Reaction Status Date / Time latex Allergy Rash Verified 10/29/24 14:18 Plan I have reviewed the history and physical and performed a pertinent physical examination on my patient. No changes have occurred unless specified. Time Spent With Patient Time: Total time managing care of this patient today ____ minutes.
[2024-11-11 18:23] LABS: MANUAL DIFF FLAG NO
[2024-11-11 18:26] LABS: Glucose, Whole Blood 135 mg/dL (60-115)
[2024-11-11 18:29] LABS: Basophils Absolute Auto 0.1 X10*3/uL (0.0-0.2); Basophils Percent Auto 0.4 % (0-2); Eosinophils Absolute Auto 0.8 X10*3/uL (0.0-0.4); Eosinophils Percent Auto 4.7 % (0-4); Hemoglobin 9.5 g/dl (14.0-18.0); Imm Gran Abs Auto 0.09 X10*3/uL (0.00-0.03); Imm Gran Pct Auto 0.5 % (0.0-0.4); Lymphocytes Percent Auto 24.1 % (20-40); Mean Corpuscular HGB Conc 33.9 g/dl (31.0-36.0); Mean Corpuscular Hemoglobin 29.3 pg (27.0-33.0); Mean Corpuscular Volume 86.4 fL (80.0-98.0); Mean Platelet Volume 11.5 fL (9.4-12.4); Monocytes Absolute Auto 1.1 X10*3/uL (0.1-1.2); Monocytes Percent Auto 6.5 % (2-11); NRBC Pct Auto 0.2 /100WBC (0.0-0.2); Neutrophils Absolute Auto 10.6 x10*3/uL (2.0-8.3); Neutrophils Percent Auto 63.8 % (45-73); Platelet Count 163 X10*3/uL (160-400); Red Blood Count 3.24 X10*6/uL (4.60-5.80); Red Cell Distribution Width 16.1 % (11.0-16.0); White Blood Count 16.5 X10*3/uL (4.8-10.8)
[2024-11-11 18:38] LABS: Vancomycin Random 21.3 mcg/mL (15-20)
[2024-11-11 18:42] LABS: Anion Gap 16 (12-20); Blood Urea Nitrogen 37 mg/dL (9-16); Calcium 10.3 mg/dL (8.4-10.2); Carbon Dioxide 35 mmol/L (22-29); Chloride 101 mmol/L (96-108); Estimated Glomerular Filt Rate > 60; Glucose Random 133 mg/dL (60-115); Magnesium 2.2 mg/dL (1.6-2.6); Phosphorus 4.5 mg/dL (2.7-4.5); Potassium 3.2 mmol/L (3.3-5.1); Sodium 149 mmol/L (135-145)
--- NOTE | 2024-11-11 19:40 | PC.NURSE ---
Assume care of pt? approx. at 0700. At that time manual pressure applied to the left femoral site. Anyi TORRES and Dr. Chau at bedside. Kcentra given and? levophed 4x gtt-see NOV. Approx. @ 1100 Abd/ Pelvic CT perform. Approx. 1500 MAP < 65 requiring pressor requirement ot up.? 2u pRBC, 1FFP.? Pt had 14 beat Vtach, calcium chloride 1 gm x1 IVP given. Pt taken to the OR By Dr. Grady approx at 1815.
--- NOTE | 2024-11-11 19:43 | W.PM.OPN ---
Operative Note Operative Note Date of Service: 11/11/24 Narrative: Operative note by [facility] Preoperative diagnosis: Left groin hematoma Postoperative diagnosis: Same Procedure:1. Left femoral artery exploration 2. Evacuation of hematoma Surgeon:Dhaval Grady M.D. Small Order Cutter: Dr. Razo Anesthesia: General Specimens: 1 Drains: None Estimated blood loss: 100 mL of new blood. 200 mL of old coagulated blood. Indications: 79-year-old gentleman who was on anticoagulation and had left femoral line removed. He developed a large left femoral hematoma. He required multiple units of blood and increasing pressor requirements. A decision was made to evaluate the left groin. The patient has signed the informed consent after reviewing risks, complications, benefits, and alternatives previously discussed with the patient. The patient was given the opportunity to ask any additional questions or voice any concerns. All questions were answered to the patient's satisfaction. Procedure in detail: Patient was brought to the operating room prior to which a time-out was called for patient identification and site verification. Left femoral cutdown was undertaken. We used 15 blade get through skin we were able to easily dissect through the tissue as it had been already dissected with all the hematoma. Metzenbaum scissors was used to get to the femoral sheath and we were easily able to identify the femoral sheath. Once within we evacuated the hematoma. We then identified the common femoral artery and we dissected this all the way up to the inguinal ligament. We went up and under the inguinal ligament and identified the length of the common femoral we isolated out the superficial femoral and profundus femoris. This was evaluated in its entirety. We did not appreciate any acute extravasation of blood. We then turned our attention to the femoral vein. This was in addition dissected and its length no significant bleed was noted from this. We then went down into the thigh. We evacuated a large portion of this hematoma. This was removed and placed in kidney basin and passed off as specimen. Once this was accomplished we irrigated the entire wound bed thoroughly. We moved whatever residual hematoma we could. Once this was done adequate hemostasis was achieved. Bleeding vessels had to be tied off with a 3-0 silk suture. Once this was all done we used Tisseel sealant throughout the entire region to obtain adequate hemostasis. Deep layer was reapproximated using 2-0 Polysorb superficial layer with 3-0 poly Sorb and finally skin with skin clips. Sterile dressing was applied. Patient was returned to ICU intubated with similar vitals as to preop. This note is constructed using voice recognition software. While every effort has been made to ensure accuracy, human resources records clerk errors may have been included. Thank you for allowing me to participate in the care of your patient. Yours sincerely, Dhaval Grady MD, FACS, R.P.V.I.
--- NOTE | 2024-11-11 20:30 | PC.NURSE ---
Pt returned from OR at approx 1945 with OR team. Upon initial assessment- pt sedated on propofol RASS -3. 4x concentrated levophed infusing per MAR, MAP >65. Sinus arrythmia with frequent PVCs on tele, HR 80s. Placed on vent by anesthesia, see vent assessment. OGT clamped- tube feeds on hold per BRIAN Gomes. Left femoral surgical dressing C/D/I, (see below). LLE warm, +DP pulse palpated, pt moves toes spontaneously. See EMR/flowsheet for further?details.?
[2024-11-11] MEDS: Potassium Chloride Packet 20 MEQ PACKET 40 MEQ PO (20:45)
[2024-11-11] MEDS: propofoL 1,000 MG/100 ML VIAL 18.02 MG IVCONT (21:08)
[2024-11-12] VITALS (40 sets, daily range): BP systolic 86–152; BP diastolic 45–75; PULSE 61–114; RESP 16–26; TEMP -11.9–38.3; O2SAT 91–95; BMI 33.1
[2024-11-12 00:17] LABS: Glucose, Whole Blood 157 mg/dL (60-115)
[2024-11-12] MEDS: Insulin Lispro 100 UNIT/ML 3 ML VIAL SUBCUT ×4 (00:30→17:35)
[2024-11-12] MEDS: 0.9 % Sodium Chloride Flush 3 ML SYRINGE IVFLUSH ×4 (00:30→23:17)
[2024-11-12 01:06] LABS: MANUAL DIFF FLAG NO
[2024-11-12 01:08] LABS: Basophils Absolute Auto 0.1 X10*3/uL (0.0-0.2); Basophils Percent Auto 0.5 % (0-2); Eosinophils Percent Auto 6.5 % (0-4); Hematocrit 27.5 % (42.0-52.0); Hemoglobin 9.1 g/dl (14.0-18.0); Imm Gran Abs Auto 0.09 X10*3/uL (0.00-0.03); Imm Gran Pct Auto 0.6 % (0.0-0.4); Lymphocytes Absolute Auto 3.4 X10*3/uL (1.2-4.9); Lymphocytes Percent Auto 21.1 % (20-40); Mean Corpuscular HGB Conc 33.1 g/dl (31.0-36.0); Mean Corpuscular Hemoglobin 29.1 pg (27.0-33.0); Mean Corpuscular Volume 87.9 fL (80.0-98.0); Mean Platelet Volume 11.5 fL (9.4-12.4); Monocytes Absolute Auto 1.1 X10*3/uL (0.1-1.2); Monocytes Percent Auto 6.9 % (2-11); NRBC Pct Auto 0.2 /100WBC (0.0-0.2); Neutrophils Absolute Auto 10.4 x10*3/uL (2.0-8.3); Neutrophils Percent Auto 64.4 % (45-73); Platelet Count 172 X10*3/uL (160-400); Red Blood Count 3.13 X10*6/uL (4.60-5.80); Red Cell Distribution Width 16.2 % (11.0-16.0); White Blood Count 16.1 X10*3/uL (4.8-10.8)
[2024-11-12 01:26] LABS: Anion Gap 13 (12-20); Blood Urea Nitrogen 33 mg/dL (9-16); Calcium 9.4 mg/dL (8.4-10.2); Carbon Dioxide 33 mmol/L (22-29); Chloride 105 mmol/L (96-108); Creatinine Clr Calc Pharmacy 111.2; Estimated Glomerular Filt Rate > 60; Glucose Random 156 mg/dL (60-115); Magnesium 2.2 mg/dL (1.6-2.6); Phosphorus 3.6 mg/dL (2.7-4.5); Potassium 3.4 mmol/L (3.3-5.1); Sodium 148 mmol/L (135-145)
[2024-11-12] MEDS: propofoL 1,000 MG/100 ML VIAL 18.02 MG IVCONT ×5 (01:46→20:37)
[2024-11-12 05:59] LABS: MANUAL DIFF FLAG NO
[2024-11-12 05:59] LABS: VBG Base Excess 16.4 mmol/L; VBG HCO3 40 mmol/L (22-26); VBG pCO2 46 mmHg; VBG pH 7.54 (7.32-7.43); VBG pO2 46 mmHg
[2024-11-12 06:05] LABS: Glucose, Whole Blood 143 mg/dL (60-115)
[2024-11-12 06:06] LABS: Venous Blood Gas Refer to POC result
[2024-11-12] MEDS: Pantoprazole Sodium 40 MG/10 ML VIAL IVPUSH (06:08)
[2024-11-12 06:14] LABS: Vancomycin Random 19.1 mcg/mL (15-20)
[2024-11-12 06:15] LABS: Albumin Level 3.1 g/dL (3.5-5.0); Anion Gap 16 (12-20); Blood Urea Nitrogen 34 mg/dL (9-16); Calcium 9.3 mg/dL (8.4-10.2); Carbon Dioxide 33 mmol/L (22-29); Chloride 105 mmol/L (96-108); Creatinine Clr Calc Pharmacy 120.8; Estimated Glomerular Filt Rate > 60; Glucose Random 140 mg/dL (60-115); Magnesium 2.2 mg/dL (1.6-2.6); Phosphorus 3.6 mg/dL (2.7-4.5); Potassium 3.2 mmol/L (3.3-5.1); Sodium 151 mmol/L (135-145)
[2024-11-12] MEDS: Potassium Chloride/H20 40 MEQ/100 ML PIGGYBACK 50 MEQ IV ×2 (06:33→20:39)
[2024-11-12] MEDS: Potassium Chloride Packet 20 MEQ PACKET 40 MEQ PO ×2 (06:33→20:39)
[2024-11-12 06:37] LABS: Basophils Absolute Auto 0.1 X10*3/uL (0.0-0.2); Basophils Percent Auto 0.4 % (0-2); Eosinophils Absolute Auto 1.1 X10*3/uL (0.0-0.4); Eosinophils Percent Auto 6.7 % (0-4); Hematocrit 28.5 % (42.0-52.0); Hemoglobin 9.3 g/dl (14.0-18.0); Imm Gran Abs Auto 0.09 X10*3/uL (0.00-0.03); Imm Gran Pct Auto 0.6 % (0.0-0.4); Lymphocytes Absolute Auto 3.3 X10*3/uL (1.2-4.9); Lymphocytes Percent Auto 20.5 % (20-40); Mean Corpuscular HGB Conc 32.6 g/dl (31.0-36.0); Mean Corpuscular Hemoglobin 28.9 pg (27.0-33.0); Mean Corpuscular Volume 88.5 fL (80.0-98.0); Mean Platelet Volume 11.5 fL (9.4-12.4); Monocytes Percent Auto 6.1 % (2-11); NRBC Pct Auto 0.3 /100WBC (0.0-0.2); Neutrophils Absolute Auto 10.7 x10*3/uL (2.0-8.3); Neutrophils Percent Auto 65.7 % (45-73); Platelet Count 183 X10*3/uL (160-400); Red Blood Count 3.22 X10*6/uL (4.60-5.80); Red Cell Distribution Width 16.6 % (11.0-16.0); White Blood Count 16.2 X10*3/uL (4.8-10.8)
[2024-11-12] MEDS: Meropenem 1 GM VIAL IVPUSH ×3 (07:12→23:17)
--- NOTE | 2024-11-12 09:05 | P.PNCC_ITS ---
Subjective Subjective Date of Service: 11/12/24 Interval History: 11/11 marked by hemorrhagic shock, s/p OR w/ vascular surgery 11/11 PM w/ improvement of bleeding Critical Care Time (minutes): 60 Physical Exam 2 Vital Signs: Vital Signs: Last Vital Signs Temp 100.8 F H 11/12/24 08:00 Pulse 90 11/12/24 08:01 Resp 16 11/12/24 08:00 BP 89/49 L 11/12/24 08:01 Pulse Ox 92 11/12/24 08:00 O2 Del Method Mechanical Ventil ation 11/12/24 08:00 O2 Flow Rate 5 11/11/24 18:00 FiO2 40 11/12/24 08:00 Oxygen Flow Rate 15 10/29/24 14:07 BMI result Body Mass Index 33.1 Const: Other: intubated, sedated; some appreciable grimacing General: no acute distress and well developed HEENT: Head: Yes normal to inspection, Yes normocephalic and Yes atraumatic Eyes: General: appearance normal, both eyes and all related structures Neck: Neck: Yes normal visual inspection, Yes full ROM, Yes no meningeal signs, Yes trachea midline and Yes supple Chest: Chest palpation & inspection: normal inspection of the chest Resp: Other: no appreciable overt rales, rhonchi, wheezing Effort & Inspection: normal respiratory effort Cardio: Rate: tachycardic Rhythm: abnormal rhythm GI: Inspection: Yes normal to inspection, No Abdominal wall edema and No distended Palpation (GI): Soft to palpation, not firm, nontender, no guarding and not rigid Skin: General skin exam: no rashes or lesions noted Neuro: General: tone normal and no meningeal signs Extrem: Other: interval improvement bluish discoloration L LE; L LE more edematous than R LE throughout; no appreciable fluctuance, induration L groin; palpable, equal DP pulses bilaterally General: Yes full ROM and Yes capillary refill normal Psych: Other: unable to assess Objective Data Labs 11/12/24 05:53 11/12/24 05:53 Labs: Laboratory Results - last 24 hr 11/11/24 11/11/24 11/11/24 06:23 09:55 11:06 WBC 18.7 H RBC 2.70 L Hgb 7.3 L Hct 23.2 L MCV 85.9 MCH 27.0 MCHC 31.5 RDW 16.0 Plt Count 172 MPV 11.3 Immature Gran % (Auto) 0.7 H Neut % (Auto) 70.4 Lymph % (Auto) 19.6 L [place] % (Auto) 7.4 Eos % (Auto) 1.5 Baso % (Auto) 0.4 Lymph # (Auto) 3.7 [place] # (Auto) 1.4 H Eos # (Auto) 0.3 Baso # (Auto) 0.1 Abs Immat Gran (auto) 0.13 H Absolute Neuts (auto) 13.2 H Absolute Nucleated RBC 0.040 H Nucleated RBC % (auto) 0.2 VBG pH VBG pCO2 VBG pO2 VBG HCO3 VBG O2 Saturation VBG Base Excess Sodium 149 H Potassium 3.0 L Chloride 99 Carbon Dioxide 38 H Anion Gap 15 BUN 39 H Creatinine 0.66 Estim Creat Clear Calc 106.1 Estimated GFR > 60 POC Glucose Random Glucose 161 H Calcium 9.8 D Phosphorus 4.9 H Magnesium 2.1 Total Creatine Kinase 22 L Albumin Stool Occult Blood Random Vancomycin Blood Type A Negative Antibody Screen NEGATIVE Crossmatch See Detail 11/11/24 11/11/24 11/11/24 12:35 13:32 17:59 WBC 16.5 H RBC 3.24 L Hgb 9.5 L D Hct 28.0 L D MCV 86.4 MCH 29.3 MCHC 33.9 RDW 16.1 H Plt Count 163 MPV 11.5 Immature Gran % (Auto) 0.5 H Neut % (Auto) 63.8 Lymph % (Auto) 24.1 [place] % (Auto) 6.5 Eos % (Auto) 4.7 H Baso % (Auto) 0.4 Lymph # (Auto) 4.0 [place] # (Auto) 1.1 Eos # (Auto) 0.8 H Baso # (Auto) 0.1 Abs Immat Gran (auto) 0.09 H Absolute Neuts (auto) 10.6 H Absolute Nucleated RBC 0.030 H Nucleated RBC % (auto) 0.2 VBG pH VBG pCO2 VBG pO2 VBG HCO3 VBG O2 Saturation VBG Base Excess Sodium 149 H Potassium 3.2 L Chloride 101 Carbon Dioxide 35 H Anion Gap 16 BUN 37 H Creatinine 0.62 Estim Creat Clear Calc 113.0 Estimated GFR > 60 POC Glucose 158 H Random Glucose 133 H Calcium 10.3 H Phosphorus 4.5 Magnesium 2.2 Total Creatine Kinase Albumin Stool Occult Blood NEGATIVE Random Vancomycin 21.3 H Blood Type Antibody Screen Crossmatch 11/11/24 11/12/24 11/12/24 18:12 00:14 00:35 WBC 16.1 H RBC 3.13 L Hgb 9.1 L Hct 27.5 L MCV 87.9 MCH 29.1 MCHC 33.1 RDW 16.2 H Plt Count 172 MPV 11.5 Immature Gran % (Auto) 0.6 H Neut % (Auto) 64.4 Lymph % (Auto) 21.1 [place] % (Auto) 6.9 Eos % (Auto) 6.5 H Baso % (Auto) 0.5 Lymph # (Auto) 3.4 [place] # (Auto) 1.1 Eos # (Auto) 1.0 H Baso # (Auto) 0.1 Abs Immat Gran (auto) 0.09 H Absolute Neuts (auto) 10.4 H Absolute Nucleated RBC 0.030 H Nucleated RBC % (auto) 0.2 VBG pH VBG pCO2 VBG pO2 VBG HCO3 VBG O2 Saturation VBG Base Excess Sodium 148 H Potassium 3.4 Chloride 105 Carbon Dioxide 33 H Anion Gap 13 BUN 33 H Creatinine 0.63 Estim Creat Clear Calc 111.2 Estimated GFR > 60 POC Glucose 135 H 157 H Random Glucose 156 H Calcium 9.4 D Phosphorus 3.6 Magnesium 2.2 Total Creatine Kinase Albumin Stool Occult Blood Random Vancomycin Blood Type Antibody Screen Crossmatch 11/12/24 11/12/24 11/12/24 05:53 05:55 05:58 WBC 16.2 H RBC 3.22 L Hgb 9.3 L Hct 28.5 L MCV 88.5 MCH 28.9 MCHC 32.6 RDW 16.6 H Plt Count 183 MPV 11.5 Immature Gran % (Auto) 0.6 H Neut % (Auto) 65.7 Lymph % (Auto) 20.5 [place] % (Auto) 6.1 Eos % (Auto) 6.7 H Baso % (Auto) 0.4 Lymph # (Auto) 3.3 [place] # (Auto) 1.0 Eos # (Auto) 1.1 H Baso # (Auto) 0.1 Abs Immat Gran (auto) 0.09 H Absolute Neuts (auto) 10.7 H Absolute Nucleated RBC 0.050 H Nucleated RBC % (auto) 0.3 H VBG pH 7.54 H VBG pCO2 46 VBG pO2 46 VBG HCO3 40 H VBG O2 Saturation 78.0 VBG Base Excess 16.4 Sodium 151 H Potassium 3.2 L Chloride 105 Carbon Dioxide 33 H Anion Gap 16 BUN 34 H Creatinine 0.58 Estim Creat Clear Calc 120.8 Estimated GFR > 60 POC Glucose 143 H Random Glucose 140 H Calcium 9.3 Phosphorus 3.6 Magnesium 2.2 Total Creatine Kinase Albumin 3.1 L Stool Occult Blood Random Vancomycin 19.1 Blood Type Antibody Screen Crossmatch Microbiology Microbiology Results: Microbiology 11/02/24 09:16 Groin, Right Gram Stain - Final 11/02/24 09:16 Groin, Right Routine Culture - Final Proteus mirabilis So albicans 10/29/24 15:29 Blood - Venous Blood Culture - Final No growth after 5 days. 10/29/24 14:42 Blood - Venous Blood Culture - Final No growth after 5 days. 10/29/24 Unknown Urine Catheterized - Kelly Catheter Urine Culture - Final Escherichia coli Progress Note: A&P Assessment and plan (1) Hemorrhagic shock: Status: Acute (2) Septic shock: Status: Acute (3) UTI (urinary tract infection): Status: Acute (4) Acute respiratory failure: Status: Acute Plan Patient is a 79 Y M w/ diabetes mellitus, CHF c/b paroxysmal atrial fibrillation, idiopathic pulmonary fibrosis, prostate cancer c/b recurrent ESBL UTI, and recent pneumonia necessitating admission, presenting to emergency department on 10/29 w/ encephalopathy and purulent urine, c/f UTI c/b septic shock; ICU course c/b shock c/b multi-system organ failure including respiratory failure, intubated on 11/01 N: intubated, sedated w/ propofol gtt, wean as tolerated CV: initially septic shock, norepinephrine gtt; hemorrhagic shock 11/11 s/p massive transfusion, OR w/ vascular surgery, improved; paroxysmal atrial fibrillation, to hold home apixaban in setting of hemorrhagic shock R: acute hypoxic respiratory failure, intubated 11/01, wean as tolerated; of note, failed multiple SBTs w/in 1 hour d/t respiratory distress; idiopathic pulmonary fibrosis GI: tube feeds : volume overload, initially on furosemide gtt, acetazolamide, to hold in setting of hemorrhagic shock; to closely monitor renal indices, electrolytes H: hemorrhagic shock 11/11 AM; paroxysmal atrial fibrillation, to hold home apixaban ID: [id number] UTI c/b septic shock, on meropenem, empiric vancomycin E: diabetes mellitus; insulin regimen S: daily updates regarding guarded clinical status given to patient's son Quality Stroke Does the patient have a stroke diagnosis?: No VTE Prior VTE?: No VTE Risk Level:: Medical - moderate - high VTE Device Contraindication: N/A - Device Ordered VTE Drug Contraindication: Treatment Not Tolerated
[2024-11-12] MEDS: Chlorhexidine Gluc Oral Rinse 15 ML MOUTHWASH BUCCAL ×3 (09:09→20:39)
[2024-11-12] MEDS: Albumin Human 25 % 50 ML 100 ML IV (09:42)
[2024-11-12 12:10] LABS: Glucose, Whole Blood 145 mg/dL (60-115)
[2024-11-12] MEDS: Norepinephrine Bitartrate/NS 32 MG/250 ML PLAST..BAG 6.7 MG IVCONT (14:04)
--- NOTE | 2024-11-12 14:48 | HO.POSTANES ---
Post Anesthesia Evaluation Post Anesthesia Evaluation Date of Service: 11/12/24 Vital Signs: Vital Signs Temp Pulse Resp BP Pulse Ox O2 Del Method FiO2 11/12/24 14:04 99 112/61 11/12/24 14:04 99 112/61 11/12/24 14:00 99.3 F 84 18 97/61 95 Mechanical Ventilation 40 11/12/24 13:00 99.5 F 92 18 114/60 94 Mechanical Ventilation 40 11/12/24 11:58 100.0 F 105 H 18 97/54 L 95 Mechanical Ventilation 40 11/12/24 11:54 94 30 11/12/24 11:38 86 102/48 L 11/12/24 11:30 40 11/12/24 11:15 102 H 144/72 H 11/12/24 11:00 100.2 F 104 H 18 152/63 H 91 L Mechanical Ventilation 40 11/12/24 11:00 61 152/63 H 11/12/24 10:45 106 H 114/60 11/12/24 10:00 100.2 F 89 18 102/74 93 Mechanical Ventilation 40 11/12/24 09:00 100.9 F H 92 18 98/52 L 91 L Mechanical Ventilation 40 11/12/24 08:01 90 89/49 L 11/12/24 08:00 100.8 F H 99 16 94/51 L 92 Mechanical Ventilation 40 11/12/24 08:00 93 30 11/12/24 07:48 40 11/12/24 07:00 100.9 F H 97 18 106/75 93 Mechanical Ventilation 40 11/12/24 06:00 100.9 F H 107 H 18 111/59 L 93 Mechanical Ventilation 40 11/12/24 05:10 40 11/12/24 05:00 10.6 F L 98 18 102/64 91 L Mechanical Ventilation 40 11/12/24 04:00 100.4 F 83 18 110/64 93 Mechanical Ventilation 40 11/12/24 04:00 40 11/12/24 03:00 100.0 F 92 18 98/55 L 93 Mechanical Ventilation 40 Anesthesia: General Endotracheal-GETA Mental Status: Sedated Pain Control: Satisfactory Nausea/Vomiting: None Hydration: Adequate Anesthesia-Related Issues: No Anes. Related Issues
[2024-11-12 17:35] LABS: Glucose, Whole Blood 158 mg/dL (60-115)
[2024-11-12 18:49] LABS: Anion Gap 13 (12-20); Blood Urea Nitrogen 36 mg/dL (9-16); Calcium 8.9 mg/dL (8.4-10.2); Carbon Dioxide 34 mmol/L (22-29); Chloride 108 mmol/L (96-108); Creatinine Clr Calc Pharmacy 117.2; Estimated Glomerular Filt Rate > 60; Glucose Random 164 mg/dL (60-115); Magnesium 2.2 mg/dL (1.6-2.6); Phosphorus 3.1 mg/dL (2.7-4.5); Potassium 3.1 mmol/L (3.3-5.1); Sodium 152 mmol/L (135-145)
--- NOTE | 2024-11-12 19:09 | PC.NURSE ---
Sedated/intubated, on? propofol gtt,. Opens eyes occasionally, does not track, does not follow commands, Moves upper extremities weakly. (passive ROM performed).? A fib, HR up to 110s, on Levophed 4x gtt - see MAR, MAP goal >65. Dr. Chau aware of the above vitals. Post left femoral hematoma evacuation day 1. Dressing CDI,? +pedal pulses BL.? Kelly in place patent/draining. LBM 11/12, soft abdomen, + bowel sounds, OGT in place,Tube feeds restarted per Dr. Chau orders, POC q 6HRS. Impaired skin integrity - see skin assessment for details (repositioning maintained)? Temperature in the 100?s, Ice packs provided with improvement to 99. RIJ TLC,? peripheral IVs.
[2024-11-12 23:56] LABS: Glucose, Whole Blood 167 mg/dL (60-115)
[2024-11-13] VITALS (43 sets, daily range): BP systolic 84–122; BP diastolic 43–74; PULSE 71–114; RESP 16–20; TEMP 34.6–38.5; O2SAT 90–94; BMI 29.0
[2024-11-13] MEDS: Insulin Lispro 100 UNIT/ML 3 ML VIAL SUBCUT ×4 (00:15→17:37)
[2024-11-13] MEDS: propofoL 1,000 MG/100 ML VIAL 18.02 MG IVCONT ×5 (01:53→20:59)
[2024-11-13 04:42] LABS: VBG Base Excess 15.2 mmol/L; VBG HCO3 40 mmol/L (22-26); VBG pCO2 52 mmHg; VBG pH 7.49 (7.32-7.43); VBG pO2 43 mmHg
[2024-11-13 05:06] LABS: MANUAL DIFF FLAG NO
[2024-11-13 05:16] LABS: Basophils Absolute Auto 0.1 X10*3/uL (0.0-0.2); Basophils Percent Auto 0.4 % (0-2); Eosinophils Absolute Auto 0.7 X10*3/uL (0.0-0.4); Eosinophils Percent Auto 4.4 % (0-4); Hematocrit 27.3 % (42.0-52.0); Hemoglobin 8.6 g/dl (14.0-18.0); Imm Gran Abs Auto 0.12 X10*3/uL (0.00-0.03); Imm Gran Pct Auto 0.8 % (0.0-0.4); Lymphocytes Percent Auto 25.9 % (20-40); Mean Corpuscular HGB Conc 31.5 g/dl (31.0-36.0); Mean Corpuscular Hemoglobin 29.1 pg (27.0-33.0); Mean Corpuscular Volume 92.2 fL (80.0-98.0); Mean Platelet Volume 11.6 fL (9.4-12.4); Monocytes Absolute Auto 1.1 X10*3/uL (0.1-1.2); Monocytes Percent Auto 7.3 % (2-11); NRBC Pct Auto 0.3 /100WBC (0.0-0.2); Neutrophils Absolute Auto 9.4 x10*3/uL (2.0-8.3); Neutrophils Percent Auto 61.2 % (45-73); Platelet Count 196 X10*3/uL (160-400); Red Blood Count 2.96 X10*6/uL (4.60-5.80); Red Cell Distribution Width 17.7 % (11.0-16.0); White Blood Count 15.4 X10*3/uL (4.8-10.8)
[2024-11-13 05:38] LABS: Albumin Level 2.9 g/dL (3.5-5.0); Anion Gap 14 (12-20); Blood Urea Nitrogen 33 mg/dL (9-16); Calcium 8.7 mg/dL (8.4-10.2); Carbon Dioxide 32 mmol/L (22-29); Chloride 110 mmol/L (96-108); Creatinine Clr Calc Pharmacy 103.4; Estimated Glomerular Filt Rate > 60; Glucose Random 164 mg/dL (60-115); Magnesium 2.4 mg/dL (1.6-2.6); Phosphorus 2.7 mg/dL (2.7-4.5); Potassium 4.1 mmol/L (3.3-5.1); Sodium 152 mmol/L (135-145)
[2024-11-13] MEDS: Pantoprazole Sodium 40 MG/10 ML VIAL IVPUSH (05:53)
[2024-11-13] MEDS: Meropenem 1 GM VIAL IVPUSH ×3 (05:59→22:51)
--- NOTE | 2024-11-13 06:16 | PC.NURSE ---
Assumed care 1900 - pt intubated and sedated. RASS -3 on propofol. Titrating levophed to maintain MAP >65 - see emar for titrations. HR 90-110s SA with frequent PAC's on tele. Tolerating tube feeds - increased?per order. CHG bath given, oral care provided, repositioned?Q2H. Safety measures in place.?
[2024-11-13] MEDS: 0.9 % Sodium Chloride Flush 3 ML SYRINGE IVFLUSH ×3 (07:06→22:53)
[2024-11-13] MEDS: Chlorhexidine Gluc Oral Rinse 15 ML MOUTHWASH BUCCAL ×3 (07:11→21:00)
[2024-11-13] MEDS: Albumin Human 25 % 50 ML 100 ML IV ×2 (07:11→07:51)
[2024-11-13 08:31] LABS: Venous Blood Gas Refer to POC result
[2024-11-13 11:09] LABS: Glucose, Whole Blood 158 mg/dL (60-115)
--- NOTE | 2024-11-13 11:45 | MHC.CLN ---
F/U PT REMAINS INTUBATED AND SEDATED TOLERATING TUBE FEEDING AT RATE AT 70 ML PER HOUR CURRENTLY AND TITRATING UP TO GOAL PER NSG TUBE FEEDING WILL PROVIDE 2160KCALS (2636KCALS WITH SEDATION; 36KCALS/KG IBW), 90G PROTEIN (1.2G/KG IBW), 1842ML FREE WATER FROM FORMULA (25ML/KG IBW) RECOMMEND ADDING 120ML FREE WATER FLUSHES TO PROVIDE (2202ML TOTAL WATER FROM FORMULA AND FLUSH (30ML/KG) TF WILL PROMOTE WOUND HEALING MONITOR TOLERANCE AND LYTES
--- NOTE | 2024-11-13 13:18 | HO.VASCPN ---
Subjective Subjective Date of Service: 11/13/24 Interval history: Kenji remains stable today. There has been no concerns with the left groin, there has been no bleeding. He remains intubated. Physical Exam Vital Signs: Vital Signs: Last Vital Signs Temp 100.8 F H 11/13/24 12:00 Pulse 100 11/13/24 12:00 Resp 18 11/13/24 12:00 BP 104/47 L 11/13/24 12:00 Pulse Ox 91 L 11/13/24 12:00 O2 Del Method Mechanical Ventil ation 11/13/24 12:00 O2 Flow Rate 30 11/13/24 10:00 FiO2 30 11/13/24 12:00 Oxygen Flow Rate 15 10/29/24 14:07 BMI result Body Mass Index 29.0 Const: General: comfortable and no acute distress Orientation/consciousness: patient oriented x3 HEENT: Ears: hearing grossly normal bilaterally Resp: Effort & Inspection: normal respiratory effort and able to speak in complete sentences Auscultation: clear to auscultation bilaterally Cardio: Rate: regular rate Rhythm: regular rhythm Heart sounds: S1 normal heart sound present and S2 normal heart sound present Bruits: no abdominal aortic bruits, no carotid bruits, no femoral bruits and no renal bruits GI: Palpation (GI): No Abdominal aortic bruit present : Other: Left groin: dressing in place, C/D/I. No bleeding or discharge noted on dressing. Dressing not taken down. Neuro: General: patient oriented x3 Cranial nerves: Yes CN's II-XII intact bilaterally Progress Note: A&P Assessment and plan (1) Groin hematoma: Status: Acute Assessment and Plan: Kenji is s/p removal of left femoral groin catheter. He developed a left groin hematoma and was taken in to surgery on 11/11 for evaluation/evacuation. The pt has been stable since. There has been no bleeding/drainage from the left groin. He remains stable from a vascular standpoint. We will continue to monitor. If there are any questions or concerns, please do not hesitate to reach out to us. Time Spent With Patient Time: Total time managing care of this patient today ____ minutes. Procedures Date of Service Date of Service: 11/13/24 Arterial Line Size (Gauge): 20 Quality Stroke Does the patient have a stroke diagnosis?: No VTE Prior VTE?: No VTE Risk Level:: Medical - moderate - high VTE Device Contraindication: N/A - Device Ordered VTE Drug Contraindication: Treatment Not Tolerated
--- NOTE | 2024-11-13 13:48 | P.PNCC_ITS ---
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 No events overnight. Critical Care Time (minutes): 60 Physical Exam 2 Vital Signs: Vital Signs: Last Vital Signs Temp 101.1 F H 11/13/24 13:00 Pulse 91 11/13/24 13:00 Resp 20 11/13/24 13:00 BP 99/63 11/13/24 13:00 Pulse Ox 91 L 11/13/24 13:00 O2 Del Method Mechanical Ventil ation 11/13/24 13:00 O2 Flow Rate 30 11/13/24 10:00 FiO2 30 11/13/24 13:00 Oxygen Flow Rate 15 10/29/24 14:07 BMI result Body Mass Index 29.0 Const: General: no acute distress, ill appearing and other (Sedated on ventilatory support) Eyes: Sclerae: sclerae normal Neck: Neck: Yes no lymphadenopathy, Yes trachea midline and Yes supple Resp: Auscultation: crackles (Bilateral) Cardio: Rate: tachycardic Rhythm: abnormal rhythm irregularly irregular Heart sounds: no gallops, no murmurs and no rubs GI: Palpation (GI): Soft to palpation and Other GI palpation findings present ( Nontender) Auscultation: normal bowel sounds Extrem: General: No clubbing, No cyanosis and Yes edema (1+ bilateral) Objective Data Labs 11/13/24 04:34 11/13/24 04:34 Labs: Laboratory Results - last 24 hr 11/11/24 11/11/24 11/12/24 05:20 06:23 17:31 WBC RBC Hgb Hct MCV MCH MCHC RDW Plt Count MPV Immature Gran % (Auto) Neut % (Auto) Lymph % (Auto) [place] % (Auto) Eos % (Auto) Baso % (Auto) Lymph # (Auto) [place] # (Auto) Eos # (Auto) Baso # (Auto) Abs Immat Gran (auto) Absolute Neuts (auto) Absolute Nucleated RBC Nucleated RBC % (auto) Smear Path Review SEE NOTE VBG pH VBG pCO2 VBG pO2 VBG HCO3 VBG O2 Saturation VBG Base Excess Sodium Potassium Chloride Carbon Dioxide Anion Gap BUN Creatinine Estim Creat Clear Calc Estimated GFR POC Glucose 158 H Random Glucose Calcium Phosphorus Magnesium Albumin Blood Type A Negative Antibody Screen NEGATIVE Crossmatch See Detail 11/12/24 11/12/24 11/13/24 18:03 23:49 04:34 WBC 15.4 H RBC 2.96 L Hgb 8.6 L Hct 27.3 L MCV 92.2 MCH 29.1 MCHC 31.5 RDW 17.7 H Plt Count 196 MPV 11.6 Immature Gran % (Auto) 0.8 H Neut % (Auto) 61.2 Lymph % (Auto) 25.9 [place] % (Auto) 7.3 Eos % (Auto) 4.4 H Baso % (Auto) 0.4 Lymph # (Auto) 4.0 [place] # (Auto) 1.1 Eos # (Auto) 0.7 H Baso # (Auto) 0.1 Abs Immat Gran (auto) 0.12 H Absolute Neuts (auto) 9.4 H Absolute Nucleated RBC 0.040 H Nucleated RBC % (auto) 0.3 H Smear Path Review VBG pH VBG pCO2 VBG pO2 VBG HCO3 VBG O2 Saturation VBG Base Excess Sodium 152 H 152 H Potassium 3.1 L 4.1 D Chloride 108 110 H Carbon Dioxide 34 H 32 H Anion Gap 13 14 BUN 36 H 33 H Creatinine 0.61 0.65 Estim Creat Clear Calc 117.2 103.4 Estimated GFR > 60 > 60 POC Glucose 167 H Random Glucose 164 H 164 H Calcium 8.9 8.7 Phosphorus 3.1 2.7 Magnesium 2.2 2.4 Albumin 2.9 L Blood Type Antibody Screen Crossmatch 11/13/24 11/13/24 04:39 11:06 WBC RBC Hgb Hct MCV MCH MCHC RDW Plt Count MPV Immature Gran % (Auto) Neut % (Auto) Lymph % (Auto) [place] % (Auto) Eos % (Auto) Baso % (Auto) Lymph # (Auto) [place] # (Auto) Eos # (Auto) Baso # (Auto) Abs Immat Gran (auto) Absolute Neuts (auto) Absolute Nucleated RBC Nucleated RBC % (auto) Smear Path Review VBG pH 7.49 H VBG pCO2 52 VBG pO2 43 VBG HCO3 40 H VBG O2 Saturation 72.0 VBG Base Excess 15.2 Sodium Potassium Chloride Carbon Dioxide Anion Gap BUN Creatinine Estim Creat Clear Calc Estimated GFR POC Glucose 158 H Random Glucose Calcium Phosphorus Magnesium Albumin Blood Type Antibody Screen Crossmatch Microbiology Microbiology Results: Microbiology 11/02/24 09:16 Groin, Right Gram Stain - Final 11/02/24 09:16 Groin, Right Routine Culture - Final Proteus mirabilis So albicans 10/29/24 15:29 Blood - Venous Blood Culture - Final No growth after 5 days. 10/29/24 14:42 Blood - Venous Blood Culture - Final No growth after 5 days. 10/29/24 Unknown Urine Catheterized - Kelly Catheter Urine Culture - Final Escherichia coli Progress Note: A&P Assessment and plan (1) Septic shock: Status: Acute (2) Hemorrhagic shock: Status: Acute (3) Acute on chronic hypoxic respiratory failure: Status: Acute (4) Non-insulin dependent type 2 diabetes mellitus: Status: Acute (5) Heart failure with reduced ejection fraction: Status: Acute (6) History of prostate cancer: Status: Acute (7) Idiopathic pulmonary fibrosis: Status: Acute (8) UTI due to extended-spectrum beta lactamase (ESBL) producing Escherichia coli: Status: Acute (9) Persistent atrial fibrillation: Status: Acute Plan Assessment: 79-year-old gentleman with underlying multiple medical issues admitted with ESBL UTI further complicated by septic shock, acute respiratory failure requiring ventilatory support, multiorgan failure, and hemorrhagic shock with a complication of femoral hematoma Plan: Neuro: Septic encephalopathy. Underlying chronic dysphagia. Cardiac: Septic shock, continue to treat off pressor support as tolerated. Hemorrhagic shock resolved after evacuation of femoral hematoma and blood product support. Underlying paroxysmal AFib and chronic systolic congestive heart failure. Pulmonary: Acute hypoxic respiratory failure requiring ventilatory support. Continue to titrate off as tolerated. Underlying pulmonary fibrosis. Will request thoracic surgery evaluation for tracheostomy/parenteral gastrostomy. Renal: No acute issues. Endo: No acute issues. Underlying diabetes mellitus, continue subcutaneous insulin. GI: No acute issues. ID: [id number] UTI, continue meropenem. Heme/Onc: Acute blood loss anemia secondary to femoral hematoma, resolved. Vascular surgery service care appreciated. Continue to monitor hemoglobin level. Psych: No acute issues. Miscellaneous: No acute issues. Prophylaxis: Pneumatic compression, ppi Diet: Tube feeds Critical care time spent: 60 minutes Quality Stroke Does the patient have a stroke diagnosis?: No VTE Prior VTE?: No VTE Risk Level:: Medical - moderate - high VTE Device Contraindication: N/A - Device Ordered VTE Drug Contraindication: Treatment Not Tolerated
--- NOTE | 2024-11-13 14:32 | MHC.CM.PN ---
Pt had a hematoma evacuation over the weekend: continues on vent support: pt may require a Peg and Trach should son decide to continue with aggressive medical management. CM to discuss options w/son on 11/14. Pt has been a LTC resident of [facility].
[2024-11-13] MEDS: Norepinephrine Bitartrate/NS 32 MG/250 ML PLAST..BAG 11.49 MG IVCONT (17:33)
[2024-11-13 17:38] LABS: Glucose, Whole Blood 202 mg/dL (60-115)
[2024-11-13 18:45] LABS: Vancomycin Random 11.8 mcg/mL (15-20)
[2024-11-13 19:54] LABS: MANUAL DIFF FLAG NO
[2024-11-13 19:58] LABS: Basophils Absolute Auto 0.1 X10*3/uL (0.0-0.2); Basophils Percent Auto 0.3 % (0-2); Eosinophils Absolute Auto 0.9 X10*3/uL (0.0-0.4); Eosinophils Percent Auto 6.2 % (0-4); Hematocrit 27.3 % (42.0-52.0); Hemoglobin 8.5 g/dl (14.0-18.0); Imm Gran Abs Auto 0.16 X10*3/uL (0.00-0.03); Imm Gran Pct Auto 1.1 % (0.0-0.4); Lymphocytes Absolute Auto 4.1 X10*3/uL (1.2-4.9); Lymphocytes Percent Auto 28.5 % (20-40); Mean Corpuscular HGB Conc 31.1 g/dl (31.0-36.0); Mean Corpuscular Hemoglobin 29.5 pg (27.0-33.0); Mean Corpuscular Volume 94.8 fL (80.0-98.0); Mean Platelet Volume 11.2 fL (9.4-12.4); Monocytes Absolute Auto 1.1 X10*3/uL (0.1-1.2); Monocytes Percent Auto 7.8 % (2-11); NRBC Pct Auto 0.4 /100WBC (0.0-0.2); Neutrophils Absolute Auto 8.1 x10*3/uL (2.0-8.3); Neutrophils Percent Auto 56.1 % (45-73); Platelet Count 204 X10*3/uL (160-400); Red Blood Count 2.88 X10*6/uL (4.60-5.80); Red Cell Distribution Width 18.5 % (11.0-16.0); White Blood Count 14.4 X10*3/uL (4.8-10.8)
[2024-11-13 20:23] LABS: Anion Gap 15 (12-20); Blood Urea Nitrogen 32 mg/dL (9-16); Calcium 8.6 mg/dL (8.4-10.2); Carbon Dioxide 32 mmol/L (22-29); Chloride 110 mmol/L (96-108); Creatinine Clr Calc Pharmacy 106.6; Estimated Glomerular Filt Rate > 60; Glucose Random 183 mg/dL (60-115); Magnesium 2.5 mg/dL (1.6-2.6); Phosphorus 2.6 mg/dL (2.7-4.5); Potassium 3.7 mmol/L (3.3-5.1); Sodium 153 mmol/L (135-145)
[2024-11-13 23:57] LABS: Glucose, Whole Blood 181 mg/dL (60-115)
[2024-11-14] VITALS (41 sets, daily range): BP systolic 95–132; BP diastolic 47–70; PULSE 66–103; RESP 18–24; TEMP 35–38.5; O2SAT 88–96; BMI 31.3
[2024-11-14] MEDS: Insulin Lispro 100 UNIT/ML 3 ML VIAL SUBCUT ×4 (00:17→17:28)
[2024-11-14] MEDS: propofoL 1,000 MG/100 ML VIAL 18.02 MG IVCONT ×4 (01:19→15:21)
--- NOTE | 2024-11-14 04:44 | HO.THORCONS ---
History of Present Illness Consult details Consult date: 11/14/24 Narrative: Patient is a 71 year old man with a plethora of intercurrent medical problems and comorbidities. Currently patient was vent dependent. Consult for tracheostomy. Also evaluation for PEG tube placement. Chart was reviewed and patient evaluated PMFSH Past Medical History Medical History (Updated 11/14/24 @ 07:44 by Amrit Solorzano MD) History of prostate cancer Obstructive sleep apnea Generalized anxiety disorder Adjustment disorder Non-insulin dependent type 2 diabetes mellitus Dysphagia Heart failure with reduced ejection fraction Persistent atrial fibrillation Idiopathic pulmonary fibrosis Prostate cancer Chronic indwelling Kelly catheter Social History Social History Household Members: Other Household Members Other:: roomate Housing: Long Term Do you presently have visiting nurse or other home services: No Alcohol intake: never Patient Tobacco Use Status: Never used Tobacco e-Cigarette/Vaping Use: Never Used Second Hand Smoke Exposure: No Advance Directives Date on File: 10/14/24 service: No Meds Allergies Allergy/AdvReac Type Severity Reaction Status Date / Time latex Allergy Rash Verified 10/29/24 14:18 Active Medications: Current Medications Chlorhexidine Gluconate (Chlorhexidine Gluc Oral Rinse 15 Ml Mouthwash) 15 ml BUCCAL TID TINA Last Admin: 11/13/24 21:00 Dose: 15 ml Dextrose (Dextrose 50 % 25 Gm/50 Ml Syringe) 25 gm IVPUSH Q15M PRN; Protocol PRN Reason: per Hypoglycemia Standing Ord. Glucose (Glucose Gel 15 Gm Gel..Gram.) 15 gm PO Q15M PRN; Protocol PRN Reason: per Hypoglycemia Standing Ord. Propofol (Diprivan) 1,000 mg in 100 mls @ 0 mls/hr IVCONT .Q0M TINA; Protocol Last Admin: 11/14/24 01:19 Dose: 30 mcg/kg/min, 18.02 mls/hr Norepinephrine Bitartrate (Levophed) 32 mg in 250 mls @ 0 mls/hr IVCONT .Q0M TINA; Protocol Last Titration: 11/14/24 01:21 Dose: 0.22 mcg/kg/min, 10.53 mls/hr Acetaminophen (Ofirmev) 1,000 mg in 100 mls @ 400 mls/hr IV Q6H PRN PRN Reason: Fever Last Infusion: 11/11/24 01:40 Dose: Infused Insulin Human Lispro (Insulin Lispro 100 Unit/Ml 3 Ml Vial) 0 unit SUBCUT Q6H [facility]; Protocol Last Admin: 11/14/24 00:17 Dose: 2 unit Meropenem (Meropenem 1 Gm Vial) 1 gm IVPUSH Q8H [facility] Last Admin: 11/13/24 22:51 Dose: 1 gm Pantoprazole Sodium (Pantoprazole Sodium 40 Mg/10 Ml Vial) 40 mg IVPUSH DAILY@0630 [facility] Last Admin: 11/13/24 05:53 Dose: 40 mg Sodium Chloride (0.9 % Sodium Chloride Flush 3 Ml Syringe) 3 ml IVFLUSH QSHIFT [facility] Last Admin: 11/13/24 22:53 Dose: 3 ml Home Medications ?Medication ?Instructions ?Recorded ?Confirmed ?Last Taken ?Type apixaban 5 mg tablet (Eliquis) 5 mg PO BID 10/13/24 10/30/24 Unknown History clotrimazole 1 % topical cream 1 appl topical DAILY PRN Rash 10/13/24 10/30/24 Unknown History doxazosin 4 mg tablet 4 mg PO BID 10/13/24 10/30/24 Unknown History fluticasone 100 mcg-salmeterol 50 1 inh inhalation BID 10/13/24 10/30/24 Unknown History mcg/dose blistr powdr for inhalation (Advair Diskus) fluticasone propionate 50 2 spray intranasal DAILY 10/13/24 10/30/24 Unknown History mcg/actuation nasal spray,suspension folic acid 1 mg tablet 1 mg PO DAILY 10/13/24 10/30/24 Unknown History furosemide 40 mg tablet 40 mg PO BID 10/13/24 10/30/24 Unknown History ipratropium 0.5 mg-albuterol 3 mg 3 ml inhalation Q4H PRN Shortness 10/13/24 10/30/24 Unknown History (2.5 mg base)/3 mL nebulization Of Breath Or Wheezing soln metformin 500 mg tablet 500 mg PO BID 10/13/24 10/30/24 Unknown History omeprazole 20 mg capsule,delayed 20 mg PO DAILY 10/13/24 10/30/24 Unknown History release potassium chloride 20 mEq 20 meq PO BID 10/13/24 10/30/24 Unknown History tablet,extended release(part/cryst) prednisone 10 mg tablet 10 mg PO DAILY 10/13/24 10/30/24 Unknown History tamsulosin 0.4 mg capsule 0.4 mg PO BEDTIME 10/13/24 10/30/24 Unknown History acetaminophen 500 mg tablet 1,000 mg PO BID 10/30/24 10/30/24 Unknown History prednisone 20 mg tablet 20 mg PO DAILY 10/30/24 10/30/24 Unknown History Physical Exam Vital Signs: Vital Signs: Last Vital Signs Temp 100.8 F H 11/14/24 04:00 Pulse 80 11/14/24 04:00 Resp 18 11/14/24 04:00 BP 109/60 11/14/24 04:00 Pulse Ox 91 L 11/14/24 04:00 O2 Del Method Mechanical Ventil ation 11/14/24 04:00 O2 Flow Rate 30 11/13/24 10:00 FiO2 30 11/14/24 04:00 Oxygen Flow Rate 15 10/29/24 14:07 BMI result Body Mass Index 29.0 Const: Other: Patient on vent, sedated. Chest: Other: Chest breath sounds bilaterally GI: Other: Corpulent, soft, benign. No obvious upper abdominal scars Results Labs 11/14/24 05:32 11/14/24 05:32 Labs: Abnormal lab results 11/11/24 11/13/24 11/13/24 Range/Units 06:23 04:34 11:06 WBC 15.4 H (4.8-10.8) X10*3/uL RBC 2.96 L (4.60-5.80) X10*6/uL Hgb 8.6 L (14.0-18.0) g/dl Hct 27.3 L (42.0-52.0) % RDW 17.7 H (11.0-16.0) % Immature Gran % (Auto) 0.8 H (0.0-0.4) % Eos % (Auto) 4.4 H (0-4) % Eos # (Auto) 0.7 H (0.0-0.4) X10*3/uL Abs Immat Gran (auto) 0.12 H (0.00-0.03) X10*3/uL Absolute Neuts (auto) 9.4 H (2.0-8.3) x10*3/uL Absolute Nucleated RBC 0.040 H (0.0-0.012) X10*3/uL Nucleated RBC % (auto) 0.3 H (0.0-0.2) /100WBC Sodium 152 H (135-145) mmol/L Chloride 110 H (96-108) mmol/L Carbon Dioxide 32 H (22-29) mmol/L BUN 33 H (9-16) mg/dL POC Glucose 158 H (60-115) mg/dL Random Glucose 164 H (60-115) mg/dL Phosphorus (2.7-4.5) mg/dL Albumin 2.9 L (3.5-5.0) g/dL Random Vancomycin (15-20) mcg/mL Crossmatch See Detail 11/13/24 11/13/24 11/13/24 Range/Units 17:34 18:04 19:31 WBC 14.4 H (4.8-10.8) X10*3/uL RBC 2.88 L (4.60-5.80) X10*6/uL Hgb 8.5 L (14.0-18.0) g/dl Hct 27.3 L (42.0-52.0) % RDW 18.5 H (11.0-16.0) % Immature Gran % (Auto) 1.1 H (0.0-0.4) % Eos % (Auto) 6.2 H (0-4) % Eos # (Auto) 0.9 H (0.0-0.4) X10*3/uL Abs Immat Gran (auto) 0.16 H (0.00-0.03) X10*3/uL Absolute Neuts (auto) (2.0-8.3) x10*3/uL Absolute Nucleated RBC 0.060 H (0.0-0.012) X10*3/uL Nucleated RBC % (auto) 0.4 H (0.0-0.2) /100WBC Sodium 153 H (135-145) mmol/L Chloride 110 H (96-108) mmol/L Carbon Dioxide 32 H (22-29) mmol/L BUN 32 H (9-16) mg/dL POC Glucose 202 H (60-115) mg/dL Random Glucose 183 H (60-115) mg/dL Phosphorus 2.6 L (2.7-4.5) mg/dL Albumin (3.5-5.0) g/dL Random Vancomycin 11.8 L (15-20) mcg/mL Crossmatch 11/13/24 Range/Units 23:52 WBC (4.8-10.8) X10*3/uL RBC (4.60-5.80) X10*6/uL Hgb (14.0-18.0) g/dl Hct (42.0-52.0) % RDW (11.0-16.0) % Immature Gran % (Auto) (0.0-0.4) % Eos % (Auto) (0-4) % Eos # (Auto) (0.0-0.4) X10*3/uL Abs Immat Gran (auto) (0.00-0.03) X10*3/uL Absolute Neuts (auto) (2.0-8.3) x10*3/uL Absolute Nucleated RBC (0.0-0.012) X10*3/uL Nucleated RBC % (auto) (0.0-0.2) /100WBC Sodium (135-145) mmol/L Chloride (96-108) mmol/L Carbon Dioxide (22-29) mmol/L BUN (9-16) mg/dL POC Glucose 181 H (60-115) mg/dL Random Glucose (60-115) mg/dL Phosphorus (2.7-4.5) mg/dL Albumin (3.5-5.0) g/dL Random Vancomycin (15-20) mcg/mL Crossmatch Short CBC 11/13/24 11/13/24 Range/Units 04:34 19:31 WBC 15.4 H 14.4 H (4.8-10.8) X10*3/uL Hgb 8.6 L 8.5 L (14.0-18.0) g/dl Hct 27.3 L 27.3 L (42.0-52.0) % Plt Count 196 204 (160-400) X10*3/uL BMP 11/13/24 11/13/24 04:34 19:31 Sodium 152 H 153 H Potassium 4.1 D 3.7 Chloride 110 H 110 H Carbon Dioxide 32 H 32 H BUN 33 H 32 H Creatinine 0.65 0.63 Calcium 8.7 8.6 Liver Function 11/13/24 Range/Units 04:34 Albumin 2.9 L (3.5-5.0) g/dL Urine 10/29/24 Range/Units 16:47 Urine Color Yellow Urine Appearance Cloudy Urine pH 6.5 (5.0-9.0) Ur Specific [place] 1.025 (1.005-1.025) Urine Protein 100 (2+) H (Neg-Trace) mg/dL Urine Glucose (UA) 100 H (Negative) mg/dL All other labs normal. Assessment and Plan (1) Idiopathic pulmonary fibrosis: Status: Acute (2) Acute respiratory failure: Status: Acute (3) Acute on chronic hypoxic respiratory failure: Status: Acute (4) Ventilator dependent: Status: Acute Plan Patient will be tentatively scheduled for tracheostomy for tomorrow (11/15) as well as for PEG placement. We will contact family or guarding procedure and consent. Procedures Date of Service Date of Service: 11/14/24 Arterial Line Size (Gauge): 20
[2024-11-14 05:35] LABS: Glucose, Whole Blood 179 mg/dL (60-115)
[2024-11-14] MEDS: Pantoprazole Sodium 40 MG/10 ML VIAL IVPUSH (05:35)
[2024-11-14 05:36] LABS: VBG Base Excess 15.6 mmol/L; VBG HCO3 40 mmol/L (22-26); VBG pCO2 54 mmHg; VBG pH 7.48 (7.32-7.43); VBG pO2 43 mmHg
[2024-11-14 05:39] LABS: Venous Blood Gas Refer to POC result
[2024-11-14 05:50] LABS: MANUAL DIFF FLAG NO
[2024-11-14 05:53] LABS: Basophils Absolute Auto 0.1 X10*3/uL (0.0-0.2); Basophils Percent Auto 0.4 % (0-2); Eosinophils Absolute Auto 1.1 X10*3/uL (0.0-0.4); Eosinophils Percent Auto 7.4 % (0-4); Hematocrit 27.6 % (42.0-52.0); Hemoglobin 8.5 g/dl (14.0-18.0); Imm Gran Abs Auto 0.18 X10*3/uL (0.00-0.03); Imm Gran Pct Auto 1.2 % (0.0-0.4); Lymphocytes Absolute Auto 3.3 X10*3/uL (1.2-4.9); Lymphocytes Percent Auto 22.4 % (20-40); Mean Corpuscular HGB Conc 30.8 g/dl (31.0-36.0); Mean Corpuscular Hemoglobin 29.3 pg (27.0-33.0); Mean Corpuscular Volume 95.2 fL (80.0-98.0); Mean Platelet Volume 11.4 fL (9.4-12.4); Monocytes Percent Auto 6.4 % (2-11); NRBC Pct Auto 0.4 /100WBC (0.0-0.2); Neutrophils Absolute Auto 9.2 x10*3/uL (2.0-8.3); Neutrophils Percent Auto 62.2 % (45-73); Platelet Count 224 X10*3/uL (160-400); Red Cell Distribution Width 18.8 % (11.0-16.0); White Blood Count 14.8 X10*3/uL (4.8-10.8)
[2024-11-14 06:09] LABS: Albumin Level 2.7 g/dL (3.5-5.0); Anion Gap 13 (12-20); Blood Urea Nitrogen 30 mg/dL (9-16); Calcium 8.2 mg/dL (8.4-10.2); Carbon Dioxide 31 mmol/L (22-29); Chloride 110 mmol/L (96-108); Creatinine Clr Calc Pharmacy 118.1; Estimated Glomerular Filt Rate > 60; Glucose Random 194 mg/dL (60-115); Magnesium 2.4 mg/dL (1.6-2.6); Phosphorus 2.5 mg/dL (2.7-4.5); Sodium 150 mmol/L (135-145)
[2024-11-14] MEDS: Meropenem 1 GM VIAL IVPUSH ×3 (06:15→23:32)
[2024-11-14] MEDS: Chlorhexidine Gluc Oral Rinse 15 ML MOUTHWASH BUCCAL ×3 (07:01→20:07)
[2024-11-14] MEDS: Potassium Phosphate/NS 15 MMOL/250 ML PLAST..BAG 62.5 MMOL IV (07:01)
[2024-11-14] MEDS: 0.9 % Sodium Chloride Flush 3 ML SYRINGE IVFLUSH ×3 (07:02→23:33)
[2024-11-14] MEDS: Albumin Human 25 % 100 ML IV ×3 (07:02→20:07)
--- NOTE | 2024-11-14 09:26 | HO.VASCPN ---
Subjective Subjective Date of Service: 11/14/24 Interval history: Kenji remains stable. He continues to be intubated. There have been no new concerns for the left groin. Physical Exam Vital Signs: Vital Signs: Last Vital Signs Temp 98.6 F 11/14/24 09:00 Pulse 75 11/14/24 09:00 Resp 18 11/14/24 09:00 BP 115/60 11/14/24 09:00 Pulse Ox 96 11/14/24 09:00 O2 Del Method Mechanical Ventil ation 11/14/24 09:00 O2 Flow Rate 30 11/13/24 10:00 FiO2 35 11/14/24 09:00 Oxygen Flow Rate 15 10/29/24 14:07 BMI result Body Mass Index 31.3 Const: General: comfortable and no acute distress HEENT: Ears: hearing grossly normal bilaterally Resp: Effort & Inspection: normal respiratory effort Auscultation: clear to auscultation bilaterally Cardio: Rate: regular rate Rhythm: regular rhythm Heart sounds: S1 normal heart sound present and S2 normal heart sound present Bruits: no abdominal aortic bruits, no carotid bruits, no femoral bruits and no renal bruits GI: Palpation (GI): No Abdominal aortic bruit present : Other: Left groin: C/D/I Neuro: Cranial nerves: Yes CN's II-XII intact bilaterally Progress Note: A&P Assessment and plan (1) Groin hematoma: Status: Acute Assessment and Plan: Kenji remains stable from a vascular standpoint. The left groin has no bleeding/discharge. We would continue with dressing changes every other day, as needed. We will sign off for now. If there are any questions or concerns, please do not hesitate to reach out to us. Time Spent With Patient Time: Total time managing care of this patient today ____ minutes. Procedures Date of Service Date of Service: 11/14/24 Arterial Line Size (Gauge): 20 Quality Stroke Does the patient have a stroke diagnosis?: No VTE Prior VTE?: No VTE Risk Level:: Medical - moderate - high VTE Device Contraindication: N/A - Device Ordered VTE Drug Contraindication: Treatment Not Tolerated
--- NOTE | 2024-11-14 09:30 | P.PNCC_ITS ---
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 No events overnight. Critical Care Time (minutes): 60 Physical Exam 2 Vital Signs: Vital Signs: Last Vital Signs Temp 98.6 F 11/14/24 09:00 Pulse 75 11/14/24 09:00 Resp 18 11/14/24 09:00 BP 115/60 11/14/24 09:00 Pulse Ox 96 11/14/24 09:00 O2 Del Method Mechanical Ventil ation 11/14/24 09:00 O2 Flow Rate 30 11/13/24 10:00 FiO2 35 11/14/24 09:00 Oxygen Flow Rate 15 10/29/24 14:07 BMI result Body Mass Index 31.3 Const: General: no acute distress and other (Sedated on ventilatory support) Eyes: Sclerae: sclerae normal Neck: Neck: Yes no lymphadenopathy, Yes trachea midline and Yes supple Resp: Auscultation: crackles (Mild bibasilar) Cardio: Rate: regular rate Rhythm: regular rhythm Heart sounds: no gallops, no murmurs and no rubs GI: Palpation (GI): Soft to palpation and Other GI palpation findings present ( Nontender) Auscultation: normal bowel sounds Extrem: General: No clubbing, No cyanosis and Yes edema (Trace bilateral) Objective Data Labs 11/14/24 05:32 11/14/24 05:32 Labs: Laboratory Results - last 24 hr 11/11/24 11/11/24 11/13/24 05:20 06:23 11:06 WBC RBC Hgb Hct MCV MCH MCHC RDW Plt Count MPV Immature Gran % (Auto) Neut % (Auto) Lymph % (Auto) [place] % (Auto) Eos % (Auto) Baso % (Auto) Lymph # (Auto) [place] # (Auto) Eos # (Auto) Baso # (Auto) Abs Immat Gran (auto) Absolute Neuts (auto) Absolute Nucleated RBC Nucleated RBC % (auto) Smear Path Review SEE NOTE VBG pH VBG pCO2 VBG pO2 VBG HCO3 VBG O2 Saturation VBG Base Excess Sodium Potassium Chloride Carbon Dioxide Anion Gap BUN Creatinine Estim Creat Clear Calc Estimated GFR POC Glucose 158 H Random Glucose Calcium Phosphorus Magnesium Albumin Random Vancomycin Crossmatch See Detail 11/13/24 11/13/24 11/13/24 17:34 18:04 19:31 WBC 14.4 H RBC 2.88 L Hgb 8.5 L Hct 27.3 L MCV 94.8 MCH 29.5 MCHC 31.1 RDW 18.5 H Plt Count 204 MPV 11.2 Immature Gran % (Auto) 1.1 H Neut % (Auto) 56.1 Lymph % (Auto) 28.5 [place] % (Auto) 7.8 Eos % (Auto) 6.2 H Baso % (Auto) 0.3 Lymph # (Auto) 4.1 [place] # (Auto) 1.1 Eos # (Auto) 0.9 H Baso # (Auto) 0.1 Abs Immat Gran (auto) 0.16 H Absolute Neuts (auto) 8.1 Absolute Nucleated RBC 0.060 H Nucleated RBC % (auto) 0.4 H Smear Path Review VBG pH VBG pCO2 VBG pO2 VBG HCO3 VBG O2 Saturation VBG Base Excess Sodium 153 H Potassium 3.7 Chloride 110 H Carbon Dioxide 32 H Anion Gap 15 BUN 32 H Creatinine 0.63 Estim Creat Clear Calc 106.6 Estimated GFR > 60 POC Glucose 202 H Random Glucose 183 H Calcium 8.6 Phosphorus 2.6 L Magnesium 2.5 Albumin Random Vancomycin 11.8 L Crossmatch 11/13/24 11/14/24 11/14/24 23:52 05:32 05:33 WBC 14.8 H RBC 2.90 L Hgb 8.5 L Hct 27.6 L MCV 95.2 MCH 29.3 MCHC 30.8 L RDW 18.8 H Plt Count 224 MPV 11.4 Immature Gran % (Auto) 1.2 H Neut % (Auto) 62.2 Lymph % (Auto) 22.4 [place] % (Auto) 6.4 Eos % (Auto) 7.4 H Baso % (Auto) 0.4 Lymph # (Auto) 3.3 [place] # (Auto) 1.0 Eos # (Auto) 1.1 H Baso # (Auto) 0.1 Abs Immat Gran (auto) 0.18 H Absolute Neuts (auto) 9.2 H Absolute Nucleated RBC 0.060 H Nucleated RBC % (auto) 0.4 H Smear Path Review VBG pH 7.48 H VBG pCO2 54 VBG pO2 43 VBG HCO3 40 H VBG O2 Saturation 71.0 VBG Base Excess 15.6 Sodium 150 H Potassium 4.0 Chloride 110 H Carbon Dioxide 31 H Anion Gap 13 BUN 30 H Creatinine 0.59 Estim Creat Clear Calc 118.1 Estimated GFR > 60 POC Glucose 181 H 179 H Random Glucose 194 H Calcium 8.2 L Phosphorus 2.5 L Magnesium 2.4 Albumin 2.7 L Random Vancomycin Crossmatch Microbiology Microbiology Results: Microbiology 11/02/24 09:16 Groin, Right Gram Stain - Final 11/02/24 09:16 Groin, Right Routine Culture - Final Proteus mirabilis So albicans 10/29/24 15:29 Blood - Venous Blood Culture - Final No growth after 5 days. 10/29/24 14:42 Blood - Venous Blood Culture - Final No growth after 5 days. 10/29/24 Unknown Urine Catheterized - Kelly Catheter Urine Culture - Final Escherichia coli Progress Note: A&P Assessment and plan (1) Heart failure with reduced ejection fraction: Status: Acute (2) Persistent atrial fibrillation: Status: Acute (3) Non-insulin dependent type 2 diabetes mellitus: Status: Acute (4) Chronic indwelling Kelly catheter: Status: Acute (5) UTI due to extended-spectrum beta lactamase (ESBL) producing Escherichia coli: Status: Acute (6) History of prostate cancer: Status: Acute (7) Septic shock: Status: Acute (8) Idiopathic pulmonary fibrosis: Status: Acute (9) Acute on chronic hypoxic respiratory failure: Status: Acute Plan Assessment: 79-year-old gentleman with underlying multiple medical issues admitted with ESBL UTI further complicated by septic shock, acute respiratory failure requiring ventilatory support, multiorgan failure, and hemorrhagic shock with a complication of femoral hematoma Plan: Neuro: Septic encephalopathy. Underlying chronic dysphagia. Cardiac: Septic shock, continue to treat off pressor support as tolerated. Hemorrhagic shock resolved after evacuation of femoral hematoma and blood product support. Underlying paroxysmal AFib and chronic systolic congestive heart failure. Pulmonary: Acute hypoxic respiratory failure requiring ventilatory support. Continue to titrate off as tolerated. Underlying pulmonary fibrosis. Thoracic surgery evaluation for tracheostomy/parenteral gastrostomy is pending. Renal: No acute issues. Endo: No acute issues. Underlying diabetes mellitus, continue subcutaneous insulin. GI: No acute issues. ID: [id number] UTI, continue meropenem. Heme/Onc: Acute blood loss anemia secondary to femoral hematoma, resolved. Vascular surgery service care appreciated. Continue to monitor hemoglobin level. Psych: No acute issues. Miscellaneous: No acute issues. Prophylaxis: Pneumatic compression, ppi Diet: Tube feeds Critical care time spent: 60 minutes Quality Stroke Does the patient have a stroke diagnosis?: No VTE Prior VTE?: No VTE Risk Level:: Medical - moderate - high VTE Device Contraindication: N/A - Device Ordered VTE Drug Contraindication: Treatment Not Tolerated
--- NOTE | 2024-11-14 10:28 | MHC.CLN ---
/U PT REMAINS INTUBATED AND SEDATED TOLERATING TUBE FEEDING AT MAX GOAL RATE PER NSG TUBE FEEDING GLUCERNA 1.0 WITH 240ML FREE WATER FLUSHES Q 6 HRS PROVIDES 2160KCALS (2636KCALS WITH SEDATION; 36KCALS/KG IBW), 90G PROTEIN (1.2G/KG IBW), 2802ML TOTAL FREE WATER FROM FORMULA AND FLUSHES (38ML/KG IBW) NOTED SERUM NA IMPROVED SLIGHTLY WITH ADDITIONAL FREE WATER TF WILL PROMOTE WOUND HEALING CONTINUE TO MONITOR TOLERANCE AND LYTES
[2024-11-14 11:18] LABS: Glucose, Whole Blood 208 mg/dL (60-115)
--- NOTE | 2024-11-14 12:38 | PM.EVENT ---
Event Note Date of Service: 11/15/24 Event Note: pt for PEG tube placement trache to be done by Dr Solorzano history reviewed - pt with acute on chronic respiratory failure has idiopathic pulmonary fibrosis, CHF pt remains vent-dependent abd soft and benign - no obvious surgical scar I explained to the son Denilson the technique of the planned procedures [id number] I reviewed the risks including but not limited to bleeding, infections, injury to other organs, including bowel, tube dislodgement/leak, loss of airway he has given consent Time Spent With Patient Time: Total time managing care of this patient today ____ minutes.
--- NOTE | 2024-11-14 14:46 | HO.WOUND ---
Wound Consult: Follow up 79yr old?male admitted to [facility] on 10/29/24 - See progress notes and H&P for detailed history.? Wound consult follow up for multiple wounds. Chart review reveals pt remains critically ill. Per Dr. 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 Many of the patients wounds continue to evolve which is common when Ischemia and Acute Skin Failure are present. Overall his wounds continue to evolve initially they were classified in some cases as pressure injuries however given his current clinical picture these wounds and characteristics are consistent with Ischemia / Acute Skin Failure and thrombocytopenia presentations. Acute Skin Failure can be caused by ischemia secondary to poor perfusion related to septic shock with multiorgan faliure.? The patients ICU stay is marked by septic shock necessitating vasopressors, respiratory failure necessitating ventilatory support. Acute Skin Failure may occur despite the implementation of proper preventative measures.? Etiology - MARSI (Medical Adhesive Related Skin Injury) scattered dried stable scabs - no progression Recommendations: Apply Skin prep allow to dry. Keep free to device and adhesives at this time. Right Groin Wound Bed: two sites with improving thin yellow slough Drainage / Odor: None Edges: ? well defined Idalmis wound:Intact - Moisture noted with in skin fold No Induration, Fluctuance or Warmth noted per direct care nurse Goals of Treatment: ? Durafiber AG and occlusive dressing. Upper Lip Etiology: Friction - scattered areas of scab consistent with friction and not pressure - scab are stable at this time no topical recommendations but to continue with oral care per protocol. Right Groin Wound Bed: two sites with improving yellow slough Drainage / Odor: None Edges: ? well defined Idalmis wound:Intact - Moisture noted with in skin fold No Induration, Fluctuance or Warmth noted per direct care nurse Goals of Treatment: ? Durafiber AG and occlusive dressing. Right Arm purpura resolving. Sacrum Etiology: ??Ischemia vs Acute Skin Failure - Previously documented as Resurfacing - Stage 2 Pressure Injury and DTI Present on Admission Wound Bed: red tissue with adherent yellow slough Edges: ? irregular Goals of Treatment: ? Barrier cream and off load pressure Bilateral Groin / Skin folds - Ischemia vs Acute Skin Failure - Previously documented as MASD Intertrigo (Moisture Associated Skin Damage - base of skin fold open tissue noted currently full thickness tissue loss with adherent yellow slough) - Recommend barrier cream to protect from moisture and friction and aid in autolytic debridement. Left Posterior thigh with bruising noted for hematoma site - providers aware and vascular following. ARNOLD mattress in use - Heel protector boots in place and Q 2 hr turns. wedges at bedside observed. No new topical recommendations needed at this time continue with all current recommendations: Details from previous assessments: Per Dr. Chau Chart details 79 Y M w/ diabetes mellitus, CHF c/b paroxysmal atrial fibrillation, idiopathic pulmonary fibrosis, prostate cancer c/b recurrent ESBL UTI, and recent pneumonia necessitating admission, presenting to emergency department on 10/29 w/ encephalopathy and purulent urine, c/f UTI c/b septic shock; ICU course c/b shock c/b multi-system organ failure including respiratory failure, intubated on 11/01 and continues on pressor support along with thrombocytopenia. Nayan was also seen by Dr. Razo on 11/03/24 and she documented the following based on his right groin wound. 79 year old male multiple med issues in ICU with septic shock treated with pressors and fluids initially via catheter in right groin now switched to the neck- skin breakdown in the groin where the catheter was anchored - due to skin necrosis from tension, edema, moisture and pressor support. Overall his wounds continue to evolve initially they were classified in some cases as pressure injuries however given his current clinical picture these wounds and characteristics are consistent with Ischemia / Acute Skin Failure and thrombocytopenia presentations. Acute Skin Failure can be caused by ischemia secondary to poor perfusion related to septic shock with multiorgan faliure.? The patients ICU stay is marked by septic shock necessitating vasopressors, respiratory failure necessitating ventilatory support. Acute Skin Failure may occur despite the implementation of proper preventative measures.? Most recently his face was noted for injury after Et Tube Mehta was changed. See photo below - The purple maroon pigmentation is not consistent with pressure it is likely related to Acute skin failure vs Thrombocytopenia. Both arms are noted for significant Purpura - see photo below. The Right Cheek is noted to MARSI (Medical Adhesive Related Skin Injury) - the open tissue is scattered and appears to correlate with adhesive and not pressure. Right Cheek Etiology - MARSI (Medical Adhesive Related Skin Injury) scattered open tissue purple areas consistent with purpura lab values reveal thrombocytopenia Recommendations: Apply Skin prep allow to dry. Keep free to device and adhesives at this time. Upper Lip Etiology: Friction - scattered areas of scab consistent with friction and not pressure - scab are stable at this time no topical recomendations but to continue with oral care per protocol. Right Arm with purpura - intact nonblanchable tissue - no topical interventions needed. Left Sacrum Etiology: ??Ischemia vs Acute Skin Failure - Previously documented as Resurfacing - Stage 2 Pressure Injury Present on Admission Wound Bed: red maroon purple tissue with epidermal layer lifting - eschar developing Edges: ? irregular Goals of Treatment: ? Barrier cream and off load pressure Right Sacrum Etiology: ??Ischemia vs Acute Skin Failure - Previously documented as Deep Tissue Injury Present on Admission Wound Bed: red maroon intact nonblanchable tissue Drainage / Odor: None Edges: ? irregular Goals of Treatment: ?barrier cream foam dressing and off load pressure Right Back - continues with Irregular skin pigmentation - not consistent with pressure - remain intact - recommend continue with foam dressing to protect from friction. Bilateral Groin / Skin folds - Ischemia vs Acute Skin Failure - Previously documented as MASD Intertrigo (Moisture Associated Skin Damage - base of skin fold open tissue noted currently appears to be transitioning to eschar) - Recommend barrier cream to protect from moisture and friction and aid in autolytic debridement. Patient is on a ARNOLD mattress, Q2hr turns are documented, preventative foams and heel protector boots are in use along with wedges for off loading pressure. Recommendations: 1. Turn and Reposition every 2 hours and as needed for patient comfort.? Use pillows or wedges to support off loading positions. 2. Off Load all bony prominences with use of pillows and heel boots if needed.? Apply Preventative foams where needed. ? 3. Monitor for incontinence and moisture control, use barrier creams when needed for prevention and treatment. 4. Provide adequate and supplemental nutrition.? 5. Continue low air loss mattress. 6. When applicable maintain blood glucose levels per Providers order. 7. Sacrum - Off Load Pressure with Q2 hr turns and use of pillows - Cleanse with PH balance spray or wipes, pat dry. ?Apply thin layer of Triad to sacrum and buttock - only pat and dab no scrub and rub when soiling occurs. Reapply thin layer PRN after each episode of incontinence. May cover with foam dressing. 8. Right Back - Apply Skin prep allow to dry. Apply foam dressing peel back and assess Q shift and Change every 5 days and PRN. 9. Posterior Groin - Cleanse with Ph balances wipes, pat dry. Apply Barrier cream to groin twice daily and prn for incontinence. 10. Right Anterior Groin: Cleanse with NS moist gauze, pat dry. Apply skin prep to periwound. Cover wound bed with Durafiber AG followed by dry gauze occlusive dressing. Change every other day. Given the area is with in his groin and skin fold monitor for saturation and change PRN. 11. Right Face - Apply Skin prep allow to dry. Do not apply adhesive or device to area. Re-consult wound care Nurse for wound deterioration or wound changes.
[2024-11-14] MEDS: Norepinephrine Bitartrate/NS 32 MG/250 ML PLAST..BAG 10.53 MG IVCONT (15:22)
--- NOTE | 2024-11-14 17:24 | PC.NURSE ---
Patient remains intubated and sedated. Dr Solorzano & @ bedside for thoracic consult for trach & peg placement.
[2024-11-14 17:29] LABS: Glucose, Whole Blood 189 mg/dL (60-115)
[2024-11-14 19:36] LABS: Hematocrit 26.6 % (42.0-52.0); Hemoglobin 8.2 g/dl (14.0-18.0); Mean Corpuscular HGB Conc 30.8 g/dl (31.0-36.0); Mean Corpuscular Hemoglobin 29.7 pg (27.0-33.0); Mean Corpuscular Volume 96.4 fL (80.0-98.0); Mean Platelet Volume 11.1 fL (9.4-12.4); NRBC Pct Auto 0.2 /100WBC (0.0-0.2); Platelet Count 210 X10*3/uL (160-400); Red Blood Count 2.76 X10*6/uL (4.60-5.80); Red Cell Distribution Width 19.3 % (11.0-16.0)
[2024-11-14 19:50] LABS: Anion Gap 11 (12-20); Blood Urea Nitrogen 26 mg/dL (9-16); Calcium 8.3 mg/dL (8.4-10.2); Carbon Dioxide 33 mmol/L (22-29); Chloride 109 mmol/L (96-108); Creatinine Clr Calc Pharmacy 131.5; Estimated Glomerular Filt Rate > 60; Glucose Random 176 mg/dL (60-115); Magnesium 2.4 mg/dL (1.6-2.6); Phosphorus 2.9 mg/dL (2.7-4.5); Sodium 149 mmol/L (135-145)
[2024-11-14] MEDS: Acetaminophen 1,000 MG/100 ML PIGGYBACK 400 MG IV (20:13)
[2024-11-14] MEDS: Norepinephrine Bitartrate/D5W 8 MG/250 ML PLAST..BAG 28.89 MG IVCONT (21:31)
[2024-11-14] MEDS: propofoL 1,000 MG/100 ML VIAL 12.01 MG IVCONT (21:32)
[2024-11-15] VITALS (38 sets, daily range): BP systolic 88–155; BP diastolic 47–67; PULSE 64–110; RESP 12–22; TEMP 32.8–38.2; O2SAT 92–100; BMI 30.4
[2024-11-15 00:05] LABS: Glucose, Whole Blood 197 mg/dL (60-115)
[2024-11-15] MEDS: Albumin Human 25 % 100 ML IV ×4 (01:57→20:06)
--- NOTE | 2024-11-15 02:54 | PC.NURSE ---
Upon initial assessment at 1900- pt sedated on propofol, titrated down per BRIAN Rushing. Tmax 101.3 via core bladder probe, given PRN APAP IV per MAR with good effect. Afib on tele with frequent PVCs, HR 70-90s. Levophed infusing and titrated to maintain MAP > 65. ETT #7.5, 25 cm at lip, on ACVC+ settings. TF held at 0000 per order for OR/procedure in AM. Kelly in place, UOP approx 30-50 mL/hr. No BM. See wound/PI assessments for multiple skin integrity issues. Repositioned in bed q2hrs with wedges/pillows. Bed locked in lowest position, alarm on.
[2024-11-15] MEDS: propofoL 1,000 MG/100 ML VIAL 12.01 MG IVCONT ×3 (04:16→20:03)
--- NOTE | 2024-11-15 04:16 | MHC.SHP ---
Pre-Procedural Eval Section A - 24 Hr Update-Section A only Date of Service: 11/15/24 The patient is an INPATIENT: Yes Changes since office visit: No Cold of Flu in the past 2 weeks, No New Medical Problems, No Changes in Medication and No Patient answered all questions Section B - Complete if H&P > 30 days Chief Complaint: Sepsis, Met Encephalopathy, UTI Allergies: Allergies Allergy/AdvReac Type Severity Reaction Status Date / Time latex Allergy Rash Verified 10/29/24 14:18 Plan I have reviewed the history and physical and performed a pertinent physical examination on my patient. No changes have occurred unless specified. Time Spent With Patient Time: Total time managing care of this patient today ____ minutes.
[2024-11-15] MEDS: Pantoprazole Sodium 40 MG/10 ML VIAL IVPUSH (05:31)
[2024-11-15] MEDS: Norepinephrine Bitartrate/D5W 8 MG/250 ML PLAST..BAG 25.28 MG IVCONT (05:31)
[2024-11-15 05:40] LABS: VBG Base Excess 15.2 mmol/L; VBG HCO3 39 mmol/L (22-26); VBG pCO2 48 mmHg; VBG pH 7.52 (7.32-7.43); VBG pO2 44 mmHg
[2024-11-15 05:41] LABS: Venous Blood Gas Refer to POC result
[2024-11-15 05:48] LABS: MANUAL DIFF FLAG NO
[2024-11-15 05:51] LABS: Basophils Absolute Auto 0.1 X10*3/uL (0.0-0.2); Basophils Percent Auto 0.5 % (0-2); Eosinophils Percent Auto 7.8 % (0-4); Hematocrit 26.1 % (42.0-52.0); Hemoglobin 7.6 g/dl (14.0-18.0); Imm Gran Abs Auto 0.17 X10*3/uL (0.00-0.03); Imm Gran Pct Auto 1.3 % (0.0-0.4); Lymphocytes Absolute Auto 3.6 X10*3/uL (1.2-4.9); Lymphocytes Percent Auto 27.7 % (20-40); Mean Corpuscular HGB Conc 29.1 g/dl (31.0-36.0); Mean Corpuscular Hemoglobin 28.5 pg (27.0-33.0); Mean Corpuscular Volume 97.8 fL (80.0-98.0); Mean Platelet Volume 11.2 fL (9.4-12.4); Monocytes Absolute Auto 0.8 X10*3/uL (0.1-1.2); Monocytes Percent Auto 6.2 % (2-11); NRBC Pct Auto 0.2 /100WBC (0.0-0.2); Neutrophils Absolute Auto 7.4 x10*3/uL (2.0-8.3); Neutrophils Percent Auto 56.5 % (45-73); Platelet Count 206 X10*3/uL (160-400); Red Blood Count 2.67 X10*6/uL (4.60-5.80); Red Cell Distribution Width 19.4 % (11.0-16.0); White Blood Count 13.1 X10*3/uL (4.8-10.8)
[2024-11-15] MEDS: Meropenem 1 GM VIAL IVPUSH ×3 (05:56→23:47)
[2024-11-15 05:57] LABS: INTERNATIONAL NORM RATIO 1.1 (0.9-1.1)
[2024-11-15 06:03] LABS: Alanine Aminotransferase 6 U/L (0-40); Albumin Level 3.3 g/dL (3.5-5.0); Alkaline Phosphatase 151 U/L (39-117); Anion Gap 11 (12-20); Aspartate Amino Transferase 20 U/L (5-37); Bilirubin Total 1.4 mg/dL (0.0-1.0); Blood Urea Nitrogen 23 mg/dL (9-16); Calcium 8.4 mg/dL (8.4-10.2); Carbon Dioxide 32 mmol/L (22-29); Chloride 109 mmol/L (96-108); Creatinine Clr Calc Pharmacy 118.5; Estimated Glomerular Filt Rate > 60; Glucose Random 169 mg/dL (60-115); Magnesium 2.3 mg/dL (1.6-2.6); Phosphorus 2.6 mg/dL (2.7-4.5); Potassium 3.6 mmol/L (3.3-5.1); Sodium 148 mmol/L (135-145); Total Protein 6.6 g/dL (6.5-8.0)
[2024-11-15] MEDS: Potassium Phosphate/NS 15 MMOL/250 ML PLAST..BAG 62.5 MMOL IV (07:47)
[2024-11-15] MEDS: Chlorhexidine Gluc Oral Rinse 15 ML MOUTHWASH BUCCAL ×3 (07:56→20:06)
[2024-11-15] MEDS: 0.9 % Sodium Chloride Flush 3 ML SYRINGE IVFLUSH ×3 (08:31→23:47)
--- NOTE | 2024-11-15 10:03 | MHC.CLN ---
F/U PT REMAINS INTUBATED AND SEDATED PT IS NPO TODAY FOR OR PROCEDURE TRACH/PEG SCHEDULED WHEN TF TO RESUME; RECOMMEND GLUCERNA 1.0 AT MAX GOAL RATE 90ML/HR WITH 240ML FREE WATER FLUSHES Q 6 HRS PROVIDES 2160KCALS (2636KCALS WITH SEDATION; 36KCALS/KG IBW), 90G PROTEIN (1.2G/KG IBW), 2802ML TOTAL FREE WATER FROM FORMULA AND FLUSHES (38ML/KG IBW) NOTED SERUM NA IMPROVED SLIGHTLY WITH ADDITIONAL FREE WATER TF WILL PROMOTE WOUND HEALING CONTINUE TO MONITOR TOLERANCE AND LYTES
--- NOTE | 2024-11-15 10:25 | PM.CCPN ---
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 Now with failure to wean from ventilatory support, planned for tracheostomy/gastrostomy today. No events overnight. Critical Care Time (minutes): 60 Physical Exam Vital Signs: Vital Signs: Last Vital Signs Temp 100.6 F H 11/15/24 10:00 Pulse 91 11/15/24 10:00 Resp 18 11/15/24 10:00 BP 109/50 L 11/15/24 10:00 Pulse Ox 92 11/15/24 10:00 O2 Del Method Mechanical Ventil ation 11/15/24 10:00 O2 Flow Rate 30 11/13/24 10:00 FiO2 35 11/15/24 10:00 Oxygen Flow Rate 15 10/29/24 14:07 BMI result Body Mass Index 30.4 Const: General: no acute distress and other (Sedated on the vent) Eyes: Sclerae: sclerae normal Neck: Neck: Yes no lymphadenopathy, Yes trachea midline and Yes supple Resp: Auscultation: crackles (Mild bilateral) Cardio: Rate: regular rate Rhythm: abnormal rhythm irregularly irregular Heart sounds: no gallops, no murmurs and no rubs GI: Palpation (GI): Soft to palpation and Other GI palpation findings present ( Nontender) Auscultation: normal bowel sounds Extrem: General: No clubbing, No cyanosis and Yes edema (Trace bilateral) Objective Data Labs 11/15/24 05:24 11/15/24 05:30 Labs: Laboratory Results - last 24 hr 11/14/24 11/14/24 11/14/24 11:15 17:22 19:21 WBC 14.0 H RBC 2.76 L Hgb 8.2 L Hct 26.6 L MCV 96.4 MCH 29.7 MCHC 30.8 L RDW 19.3 H Plt Count 210 MPV 11.1 Immature Gran % (Auto) Neut % (Auto) Lymph % (Auto) [place] % (Auto) Eos % (Auto) Baso % (Auto) Lymph # (Auto) [place] # (Auto) Eos # (Auto) Baso # (Auto) Abs Immat Gran (auto) Absolute Neuts (auto) Absolute Nucleated RBC 0.030 H Nucleated RBC % (auto) 0.2 PT INR VBG pH VBG pCO2 VBG pO2 VBG HCO3 VBG O2 Saturation VBG Base Excess Sodium 149 H Potassium 4.0 Chloride 109 H Carbon Dioxide 33 H Anion Gap 11 L BUN 26 H Creatinine 0.53 Estim Creat Clear Calc 131.5 Estimated GFR > 60 POC Glucose 208 H 189 H Random Glucose 176 H Calcium 8.3 L Phosphorus 2.9 Magnesium 2.4 Total Bilirubin AST ALT Alkaline Phosphatase Total Protein Albumin 11/15/24 11/15/24 11/15/24 00:01 05:24 05:30 WBC 13.1 H RBC 2.67 L Hgb 7.6 L Hct 26.1 L MCV 97.8 MCH 28.5 MCHC 29.1 L RDW 19.4 H Plt Count 206 MPV 11.2 Immature Gran % (Auto) 1.3 H Neut % (Auto) 56.5 Lymph % (Auto) 27.7 [place] % (Auto) 6.2 Eos % (Auto) 7.8 H Baso % (Auto) 0.5 Lymph # (Auto) 3.6 [place] # (Auto) 0.8 Eos # (Auto) 1.0 H Baso # (Auto) 0.1 Abs Immat Gran (auto) 0.17 H Absolute Neuts (auto) 7.4 Absolute Nucleated RBC 0.030 H Nucleated RBC % (auto) 0.2 PT 13.0 H D INR 1.1 VBG pH VBG pCO2 VBG pO2 VBG HCO3 VBG O2 Saturation VBG Base Excess Sodium 148 H Potassium 3.6 Chloride 109 H Carbon Dioxide 32 H Anion Gap 11 L BUN 23 H Creatinine 0.58 Estim Creat Clear Calc 118.5 Estimated GFR > 60 POC Glucose 197 H Random Glucose 169 H Calcium 8.4 Phosphorus 2.6 L Magnesium 2.3 Total Bilirubin 1.4 H AST 20 ALT 6 Alkaline Phosphatase 151 H Total Protein 6.6 Albumin 3.3 L 11/15/24 05:36 WBC RBC Hgb Hct MCV MCH MCHC RDW Plt Count MPV Immature Gran % (Auto) Neut % (Auto) Lymph % (Auto) [place] % (Auto) Eos % (Auto) Baso % (Auto) Lymph # (Auto) [place] # (Auto) Eos # (Auto) Baso # (Auto) Abs Immat Gran (auto) Absolute Neuts (auto) Absolute Nucleated RBC Nucleated RBC % (auto) PT INR VBG pH 7.52 H VBG pCO2 48 VBG pO2 44 VBG HCO3 39 H VBG O2 Saturation 77.0 VBG Base Excess 15.2 Sodium Potassium Chloride Carbon Dioxide Anion Gap BUN Creatinine Estim Creat Clear Calc Estimated GFR POC Glucose Random Glucose Calcium Phosphorus Magnesium Total Bilirubin AST ALT Alkaline Phosphatase Total Protein Albumin Microbiology Microbiology Results: Microbiology 11/02/24 09:16 Groin, Right Gram Stain - Final 11/02/24 09:16 Groin, Right Routine Culture - Final Proteus mirabilis So albicans 10/29/24 15:29 Blood - Venous Blood Culture - Final No growth after 5 days. 10/29/24 14:42 Blood - Venous Blood Culture - Final No growth after 5 days. 10/29/24 Unknown Urine Catheterized - Kelly Catheter Urine Culture - Final Escherichia coli Progress Note: A&P Assessment and plan (1) Heart failure with reduced ejection fraction: Status: Acute (2) Persistent atrial fibrillation: Status: Acute (3) UTI due to extended-spectrum beta lactamase (ESBL) producing Escherichia coli: Status: Acute (4) Chronic indwelling Kelly catheter: Status: Acute (5) History of prostate cancer: Status: Acute (6) Septic shock: Status: Acute (7) Idiopathic pulmonary fibrosis: Status: Acute (8) Acute encephalopathy: Status: Acute (9) Acute on chronic hypoxic respiratory failure: Status: Acute (10) Failure to wean from mechanical ventilation: Status: Acute Plan Assessment: 79-year-old gentleman with underlying multiple medical issues admitted with ESBL UTI further complicated by septic shock, acute respiratory failure requiring ventilatory support, multiorgan failure, and hemorrhagic shock with a complication of femoral hematoma Plan: Neuro: Septic encephalopathy. Underlying chronic dysphagia. Cardiac: Septic shock, continue to treat off pressor support as tolerated. Hemorrhagic shock resolved after evacuation of femoral hematoma and blood product support. Underlying paroxysmal AFib and chronic systolic congestive heart failure. Pulmonary: Acute hypoxic respiratory failure with inability to wean from ventilatory support. Planned for tracheostomy/gastrostomy today. Underlying pulmonary fibrosis. Renal: No acute issues. Endo: No acute issues. Underlying diabetes mellitus, continue subcutaneous insulin. GI: No acute issues. ID: [id number] [id number], continue meropenem. Heme/Onc: Acute blood loss anemia secondary to femoral hematoma, resolved. Vascular surgery service care appreciated. Continue to monitor hemoglobin level. Psych: No acute issues. Miscellaneous: No acute issues. Prophylaxis: Pneumatic compression, ppi Diet: Tube feeds Critical care time spent: 60 minutes Quality Stroke Does the patient have a stroke diagnosis?: No VTE Prior VTE?: No VTE Risk Level:: Medical - moderate - high VTE Device Contraindication: N/A - Device Ordered VTE Drug Contraindication: Treatment Not Tolerated
[2024-11-15 11:09] LABS: Glucose, Whole Blood 159 mg/dL (60-115)
--- NOTE | 2024-11-15 12:28 | MHC.SHP ---
Pre-Procedural Eval Section A - 24 Hr Update-Section A only Date of Service: 11/15/24 The patient is an INPATIENT: Yes Changes since office visit: No Cold of Flu in the past 2 weeks, No New Medical Problems, No Changes in Medication and No Patient answered all questions The patient has been examined within 24 hours of the surgical procedure. The History & Physical has been completed within 30 days and I have reviewed it.: Yes Section B - Complete if H&P > 30 days Chief Complaint: Sepsis, Met Encephalopathy, UTI Allergies: Allergies Allergy/AdvReac Type Severity Reaction Status Date / Time latex Allergy Rash Verified 10/29/24 14:18 Plan I have reviewed the history and physical and performed a pertinent physical examination on my patient. No changes have occurred unless specified. Time Spent With Patient Time: Total time managing care of this patient today ____ minutes.
--- NOTE | 2024-11-15 13:02 | P.CONAN_ITS ---
HPI - Anesthesia Eval Consult details Narrative: For tracheostomy and PEG. VDRF. 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 Admitted with septic shock secondary to ESBL UTI. Course cx by [facility] including acute hypoxic respiratory failure requiring intubation and ventilatory support on 11/01/2024, and hemorrhagic shock secondary to femoral hematoma requiring evacuation in OR on 11/11/2024. Now with failure to wean from ventilatory support, and metabolic encephalopathy. Planned for tracheostomy/PEG today. Current vent settings: AC 18/400/35%/+5 -> RR 18, PIP 25, Sat 93%. BP 105/56 on Levophed 0.12ug. On propofol infusion, no fent gtt. PMFSH Active Problems Active Problems: All Active Problems Failure to wean from mechanical ventilation (Acute) Ventilator dependent (Acute) Persistent atrial fibrillation (Acute) UTI due to extended-spectrum beta lactamase (ESBL) producing Escherichia coli (Acute) Idiopathic pulmonary fibrosis (Acute) History of prostate cancer (Acute) Heart failure with reduced ejection fraction (Acute) Non-insulin dependent type 2 diabetes mellitus (Acute) Groin hematoma (Acute) Hematoma (Acute) Hemorrhagic shock (Acute) Acute respiratory failure (Acute) Skin necrosis (Acute) Acute encephalopathy (Acute) Septic shock (Acute) Acute on chronic hypoxic respiratory failure (Acute) Metabolic encephalopathy (Acute) Metabolic alkalosis (Acute) Sepsis due to urinary tract infection (Acute) Abnormal finding on imaging (Acute) Chronic indwelling Kelly catheter (Acute) UTI (urinary tract infection) (Acute) Past Medical History Medical History (Updated 11/15/24 @ 11:29 by Uriel Beckford MD) History of prostate cancer Obstructive sleep apnea Generalized anxiety disorder Adjustment disorder Non-insulin dependent type 2 diabetes mellitus Dysphagia Heart failure with reduced ejection fraction Persistent atrial fibrillation Idiopathic pulmonary fibrosis Prostate cancer Chronic indwelling Kelly catheter Family History Family history of problems with anesthesia: No Surgical History History of Problems with Anesthesia: No Social History Social History Household Members: Other Household Members Other:: roomate Housing: [facility] Do you presently have visiting nurse or other home services: No Alcohol intake: never Patient Tobacco Use Status: Never used Tobacco e-Cigarette/Vaping Use: Never Used Second Hand Smoke Exposure: No Advance Directives Date on File: 10/14/24 service: No Meds Allergies Allergy/AdvReac Type Severity Reaction Status Date / Time latex Allergy Rash Verified 10/29/24 14:18 Active Medications: Current Medications Chlorhexidine Gluconate (Chlorhexidine Gluc Oral Rinse 15 Ml Mouthwash) 15 ml BUCCAL TID [facility] Last Admin: 11/15/24 07:56 Dose: 15 ml Dextrose (Dextrose 50 % 25 Gm/50 Ml Syringe) 25 gm IVPUSH Q15M PRN; Protocol PRN Reason: per Hypoglycemia Standing Ord. Glucose (Glucose Gel 15 Gm Gel..Gram.) 15 gm PO Q15M PRN; Protocol PRN Reason: per Hypoglycemia Standing Ord. Propofol (Diprivan) 1,000 mg in 100 mls @ 0 mls/hr IVCONT .Q0M [facility]; Protocol Last Admin: 11/15/24 04:16 Dose: 20 mcg/kg/min, 12.01 mls/hr Acetaminophen (Ofirmev) 1,000 mg in 100 mls @ 400 mls/hr IV Q6H PRN PRN Reason: Fever Last Infusion: 11/14/24 20:30 Dose: Infused Norepinephrine Bitartrate (Levophed) 8 mg in 250 mls @ 0 mls/hr IVCONT .Q0M [facility]; Protocol Last Titration: 11/15/24 07:35 Dose: 0.12 mcg/kg/min, 21.67 mls/hr Albumin Human (Kedbumin 25 %) 100 mls @ 100 mls/hr IV Q6H [facility] Stop: 11/16/24 02:59 Last Infusion: 11/15/24 10:09 Dose: Infused Insulin Human Lispro (Insulin Lispro 100 Unit/Ml 3 Ml Vial) 0 unit SUBCUT Q6H [facility]; Protocol Last Admin: 11/15/24 05:56 Dose: Not Given Meropenem (Meropenem 1 Gm Vial) 1 gm IVPUSH Q8H [facility] Last Admin: 11/15/24 05:56 Dose: 1 gm Pantoprazole Sodium (Pantoprazole Sodium 40 Mg/10 Ml Vial) 40 mg IVPUSH DAILY@0630 [facility] Last Admin: 11/15/24 05:31 Dose: 40 mg Sodium Chloride (0.9 % Sodium Chloride Flush 3 Ml Syringe) 3 ml IVFLUSH QSHIFT [facility] Last Admin: 11/15/24 08:31 Dose: 3 ml Home Medications ?Medication ?Instructions ?Recorded ?Confirmed ?Last Taken ?Type apixaban 5 mg tablet (Eliquis) 5 mg PO BID 10/13/24 10/30/24 Unknown History clotrimazole 1 % topical cream 1 appl topical DAILY PRN Rash 10/13/24 10/30/24 Unknown History doxazosin 4 mg tablet 4 mg PO BID 10/13/24 10/30/24 Unknown History fluticasone 100 mcg-salmeterol 50 1 inh inhalation BID 10/13/24 10/30/24 Unknown History mcg/dose blistr powdr for inhalation (Advair Diskus) fluticasone propionate 50 2 spray intranasal DAILY 10/13/24 10/30/24 Unknown History mcg/actuation nasal spray,suspension folic acid 1 mg tablet 1 mg PO DAILY 10/13/24 10/30/24 Unknown History furosemide 40 mg tablet 40 mg PO BID 10/13/24 10/30/24 Unknown History ipratropium 0.5 mg-albuterol 3 mg 3 ml inhalation Q4H PRN Shortness 10/13/24 10/30/24 Unknown History (2.5 mg base)/3 mL nebulization Of Breath Or Wheezing soln metformin 500 mg tablet 500 mg PO BID 10/13/24 10/30/24 Unknown History omeprazole 20 mg capsule,delayed 20 mg PO DAILY 10/13/24 10/30/24 Unknown History release potassium chloride 20 mEq 20 meq PO BID 10/13/24 10/30/24 Unknown History tablet,extended release(part/cryst) prednisone 10 mg tablet 10 mg PO DAILY 10/13/24 10/30/24 Unknown History tamsulosin 0.4 mg capsule 0.4 mg PO BEDTIME 10/13/24 10/30/24 Unknown History acetaminophen 500 mg tablet 1,000 mg PO BID 10/30/24 10/30/24 Unknown History prednisone 20 mg tablet 20 mg PO DAILY 10/30/24 10/30/24 Unknown History Exam Height,Weight and Vital Signs: Height 5 ft 9 in Weight 93.5 kg Last Vital Signs Temp 100.4 F 11/15/24 12:00 Pulse 79 11/15/24 12:00 Resp 18 11/15/24 12:00 BP 155/58 H 11/15/24 12:00 Pulse Ox 93 11/15/24 12:00 O2 Del Method Mechanical Ventilation 11/15/24 12:00 O2 Flow Rate 30 11/13/24 10:00 FiO2 35 11/15/24 12:00 Oxygen Flow Rate 15 10/29/24 14:07 Pertinent Lab Results Pertinent Lab Results: Laboratory Tests 10/29/24 10/29/24 10/29/24 14:42 14:47 14:54 WBC 12.1 H RBC 3.86 L Hgb 10.0 L Hct 33.9 L MCV 87.8 MCH 25.9 L MCHC 29.5 L RDW 16.9 H Plt Count 197 MPV 10.5 Immature Gran % (Auto) 0.7 H Neut % (Auto) 85.0 H Lymph % (Auto) 10.5 L [place] % (Auto) 3.5 Eos % (Auto) 0.1 Baso % (Auto) 0.2 Lymph # (Auto) 1.3 [place] # (Auto) 0.4 Eos # (Auto) 0.0 Baso # (Auto) 0.0 Abs Immat Gran (auto) 0.08 H Absolute Neuts (auto) 10.3 H Absolute Nucleated RBC 0.000 Nucleated RBC % (auto) 0.0 Smear Tech's Comments Smear Path Review PT INR APTT O2 Saturation ABG pH at Pt Temp ABG pCO2 at Pt Temp ABG pO2 at Pt Temp ABG HCO3 ABG Base Excess (Actual) VBG pH 7.44 H VBG pCO2 59 VBG pO2 32 VBG HCO3 40 H VBG O2 Saturation 44.0 VBG Base Excess 14.0 Sodium 140 Potassium 5.1 Chloride 100 Carbon Dioxide 26 Anion Gap 19 BUN 21 H Creatinine 0.71 Estim Creat Clear Calc 85.7 Estimated GFR > 60 POC Glucose Random Glucose 176 H Lactic Acid 2.7 H* Lactic Acid F/U @ 2Hr Calcium 8.8 Phosphorus Magnesium 1.7 Total Bilirubin 0.3 Direct Bilirubin 0.1 AST 26 ALT < 6 Alkaline Phosphatase 207 H Total Creatine Kinase Troponin I High Sens 13.5 C-Reactive Protein 5.89 H B-Natriuretic Peptide 539 H Total Protein 7.8 Albumin 2.7 L Procalcitonin 0.10 Urine Color Urine Appearance Urine pH Ur Specific [place] Urine Protein Urine Glucose (UA) Urine Ketones Urine Blood Urine Nitrite Ur Leukocyte Esterase Urine RBC Urine WBC Ur Squamous Epith Cells Ur Transition Epith Cell Urine Bacteria Hyaline Casts Stool Occult Blood Vancomycin Trough Random Vancomycin Influenza Type A (PCR) NEGATIVE Influenza Type B (PCR) NEGATIVE RSV RNA Qual (PCR) NEGATIVE SARS-CoV-2 RNA (RT-PCR) NEGATIVE Blood Type Antibody Screen Crossmatch 10/29/24 10/29/24 10/29/24 15:29 16:47 17:20 WBC RBC Hgb Hct MCV MCH MCHC RDW Plt Count MPV Immature Gran % (Auto) Neut % (Auto) Lymph % (Auto) [place] % (Auto) Eos % (Auto) Baso % (Auto) Lymph # (Auto) [place] # (Auto) Eos # (Auto) Baso # (Auto) Abs Immat Gran (auto) Absolute Neuts (auto) Absolute Nucleated RBC Nucleated RBC % (auto) Smear Tech's Comments Smear Path Review PT 18.3 H INR 1.6 H APTT O2 Saturation ABG pH at Pt Temp ABG pCO2 at Pt Temp ABG pO2 at Pt Temp ABG HCO3 ABG Base Excess (Actual) VBG pH VBG pCO2 VBG pO2 VBG HCO3 VBG O2 Saturation VBG Base Excess Sodium Potassium Chloride Carbon Dioxide Anion Gap BUN Creatinine Estim Creat Clear Calc Estimated GFR POC Glucose Random Glucose Lactic Acid Lactic Acid F/U @ 2Hr 1.8 Calcium Phosphorus Magnesium Total Bilirubin Direct Bilirubin AST ALT Alkaline Phosphatase Total Creatine Kinase Troponin I High Sens 17.3 C-Reactive Protein B-Natriuretic Peptide Total Protein Albumin Procalcitonin Urine Color Yellow Urine Appearance Cloudy Urine pH 6.5 Ur Specific [place] 1.025 Urine Protein 100 (2+) H Urine Glucose (UA) 100 H Urine Ketones Trace Urine Blood Large (3+) H Urine Nitrite Positive H Ur Leukocyte Esterase Large (3+) H Urine RBC >20 H Urine WBC >50 Ur Squamous Epith Cells 0-2 Ur Transition Epith Cell Present Urine Bacteria 4+ Hyaline Casts 0-2 Stool Occult Blood Vancomycin Trough Random Vancomycin Influenza Type A (PCR) Influenza Type B (PCR) RSV RNA Qual (PCR) SARS-CoV-2 RNA (RT-PCR) Blood Type Antibody Screen Crossmatch 10/30/24 10/30/24 10/30/24 04:30 07:05 07:28 WBC 13.0 H RBC 3.11 L Hgb 8.1 L Hct 27.9 L MCV 89.7 MCH 26.0 L MCHC 29.0 L RDW 16.7 H Plt Count 177 MPV 10.9 Immature Gran % (Auto) 0.5 H Neut % (Auto) 75.4 H Lymph % (Auto) 18.7 L [place] % (Auto) 5.1 Eos % (Auto) 0.1 Baso % (Auto) 0.2 Lymph # (Auto) 2.4 [place] # (Auto) 0.7 Eos # (Auto) 0.0 Baso # (Auto) 0.0 Abs Immat Gran (auto) 0.06 H Absolute Neuts (auto) 9.8 H Absolute Nucleated RBC 0.000 Nucleated RBC % (auto) 0.0 Smear Tech's Comments Smear Path Review PT INR APTT O2 Saturation 91.0 ABG pH at Pt Temp 7.33 L ABG pCO2 at Pt Temp 55 H ABG pO2 at Pt Temp 69 L ABG HCO3 29 H ABG Base Excess (Actual) 3.2 VBG pH VBG pCO2 VBG pO2 VBG HCO3 VBG O2 Saturation VBG Base Excess Sodium 144 Potassium 4.0 D Chloride 106 Carbon Dioxide 30 H Anion Gap 12 BUN 16 Creatinine 0.61 Estim Creat Clear Calc 99.8 Estimated GFR > 60 POC Glucose 181 H Random Glucose 131 H Lactic Acid Lactic Acid F/U @ 2Hr Calcium 8.2 L D Phosphorus Magnesium Total Bilirubin Direct Bilirubin AST ALT Alkaline Phosphatase Total Creatine Kinase Troponin I High Sens C-Reactive Protein B-Natriuretic Peptide Total Protein Albumin Procalcitonin Urine Color Urine Appearance Urine pH Ur Specific [place] Urine Protein Urine Glucose (UA) Urine Ketones Urine Blood Urine Nitrite Ur Leukocyte Esterase Urine RBC Urine WBC Ur Squamous Epith Cells Ur Transition Epith Cell Urine Bacteria Hyaline Casts Stool Occult Blood Vancomycin Trough Random Vancomycin Influenza Type A (PCR) Influenza Type B (PCR) RSV RNA Qual (PCR) SARS-CoV-2 RNA (RT-PCR) Blood Type Antibody Screen Crossmatch 10/30/24 10/30/24 10/30/24 13:29 16:42 21:28 WBC RBC Hgb Hct MCV MCH MCHC RDW Plt Count MPV Immature Gran % (Auto) Neut % (Auto) Lymph % (Auto) [place] % (Auto) Eos % (Auto) Baso % (Auto) Lymph # (Auto) [place] # (Auto) Eos # (Auto) Baso # (Auto) Abs Immat Gran (auto) Absolute Neuts (auto) Absolute Nucleated RBC Nucleated RBC % (auto) Smear Tech's Comments Smear Path Review PT INR APTT O2 Saturation ABG pH at Pt Temp ABG pCO2 at Pt Temp ABG pO2 at Pt Temp ABG HCO3 ABG Base Excess (Actual) VBG pH VBG pCO2 VBG pO2 VBG HCO3 VBG O2 Saturation VBG Base Excess Sodium Potassium Chloride Carbon Dioxide Anion Gap BUN Creatinine Estim Creat Clear Calc Estimated GFR POC Glucose 131 H 116 H 143 H Random Glucose Lactic Acid Lactic Acid F/U @ 2Hr Calcium Phosphorus Magnesium Total Bilirubin Direct Bilirubin AST ALT Alkaline Phosphatase Total Creatine Kinase Troponin I High Sens C-Reactive Protein B-Natriuretic Peptide Total Protein Albumin Procalcitonin Urine Color Urine Appearance Urine pH Ur Specific [place] Urine Protein Urine Glucose (UA) Urine Ketones Urine Blood Urine Nitrite Ur Leukocyte Esterase Urine RBC Urine WBC Ur Squamous Epith Cells Ur Transition Epith Cell Urine Bacteria Hyaline Casts Stool Occult Blood Vancomycin Trough Random Vancomycin Influenza Type A (PCR) Influenza Type B (PCR) RSV RNA Qual (PCR) SARS-CoV-2 RNA (RT-PCR) Blood Type Antibody Screen Crossmatch 10/30/24 10/31/24 10/31/24 23:34 04:38 04:39 WBC 13.9 H RBC 3.39 L Hgb 8.9 L Hct 30.5 L MCV 90.0 MCH 26.3 L MCHC 29.2 L RDW 16.3 H Plt Count 203 MPV 11.4 Immature Gran % (Auto) 0.6 H Neut % (Auto) 74.5 H Lymph % (Auto) 16.8 L [place] % (Auto) 5.5 Eos % (Auto) 2.3 Baso % (Auto) 0.3 Lymph # (Auto) 2.3 [place] # (Auto) 0.8 Eos # (Auto) 0.3 Baso # (Auto) 0.0 Abs Immat Gran (auto) 0.09 H Absolute Neuts (auto) 10.4 H Absolute Nucleated RBC 0.000 Nucleated RBC % (auto) 0.0 Smear Tech's Comments Smear Path Review PT INR APTT O2 Saturation ABG pH at Pt Temp ABG pCO2 at Pt Temp ABG pO2 at Pt Temp ABG HCO3 ABG Base Excess (Actual) VBG pH VBG pCO2 VBG pO2 VBG HCO3 VBG O2 Saturation VBG Base Excess Sodium 141 Potassium 3.9 Chloride 103 Carbon Dioxide 32 H Anion Gap 10 L BUN 12 Creatinine 0.64 Estim Creat Clear Calc 95.1 Estimated GFR > 60 POC Glucose 162 H 174 H Random Glucose 186 H Lactic Acid Lactic Acid F/U @ 2Hr Calcium 8.5 Phosphorus 2.6 L Magnesium 1.5 L Total Bilirubin 0.2 Direct Bilirubin AST 14 ALT < 6 Alkaline Phosphatase 190 H Total Creatine Kinase Troponin I High Sens C-Reactive Protein B-Natriuretic Peptide Total Protein 6.4 L Albumin 2.7 L Procalcitonin Urine Color Urine Appearance Urine pH Ur Specific [place] Urine Protein Urine Glucose (UA) Urine Ketones Urine Blood Urine Nitrite Ur Leukocyte Esterase Urine RBC Urine WBC Ur Squamous Epith Cells Ur Transition Epith Cell Urine Bacteria Hyaline Casts Stool Occult Blood Vancomycin Trough Random Vancomycin Influenza Type A (PCR) Influenza Type B (PCR) RSV RNA Qual (PCR) SARS-CoV-2 RNA (RT-PCR) Blood Type Antibody Screen Crossmatch 10/31/24 10/31/24 10/31/24 04:43 09:42 11:10 WBC RBC Hgb Hct MCV MCH MCHC RDW Plt Count MPV Immature Gran % (Auto) Neut % (Auto) Lymph % (Auto) [place] % (Auto) Eos % (Auto) Baso % (Auto) Lymph # (Auto) [place] # (Auto) Eos # (Auto) Baso # (Auto) Abs Immat Gran (auto) Absolute Neuts (auto) Absolute Nucleated RBC Nucleated RBC % (auto) Smear Tech's Comments Smear Path Review PT 12.6 H D INR 1.1 APTT 34.1 O2 Saturation ABG pH at Pt Temp ABG pCO2 at Pt Temp ABG pO2 at Pt Temp ABG HCO3 ABG Base Excess (Actual) VBG pH 7.34 VBG pCO2 64 VBG pO2 46 VBG HCO3 35 H VBG O2 Saturation 72.0 VBG Base Excess 7.7 Sodium Potassium Chloride Carbon Dioxide Anion Gap BUN Creatinine Estim Creat Clear Calc Estimated GFR POC Glucose 176 H Random Glucose Lactic Acid Lactic Acid F/U @ 2Hr Calcium Phosphorus Magnesium Total Bilirubin Direct Bilirubin AST ALT Alkaline Phosphatase Total Creatine Kinase Troponin I High Sens C-Reactive Protein B-Natriuretic Peptide Total Protein Albumin Procalcitonin Urine Color Urine Appearance Urine pH Ur Specific [place] Urine Protein Urine Glucose (UA) Urine Ketones Urine Blood Urine Nitrite Ur Leukocyte Esterase Urine RBC Urine WBC Ur Squamous Epith Cells Ur Transition Epith Cell Urine Bacteria Hyaline Casts Stool Occult Blood Vancomycin Trough Random Vancomycin Influenza Type A (PCR) Influenza Type B (PCR) RSV RNA Qual (PCR) SARS-CoV-2 RNA (RT-PCR) Blood Type Antibody Screen Crossmatch 10/31/24 10/31/24 10/31/24 14:48 15:39 17:12 WBC 13.5 H RBC 3.70 L Hgb 9.6 L Hct 34.0 L MCV 91.9 MCH 25.9 L MCHC 28.2 L RDW 16.0 Plt Count 232 MPV 10.8 Immature Gran % (Auto) Neut % (Auto) Lymph % (Auto) [place] % (Auto) Eos % (Auto) Baso % (Auto) Lymph # (Auto) [place] # (Auto) Eos # (Auto) Baso # (Auto) Abs Immat Gran (auto) Absolute Neuts (auto) Absolute Nucleated RBC 0.020 H Nucleated RBC % (auto) 0.1 Smear Tech's Comments Smear Path Review PT INR APTT O2 Saturation 94.0 ABG pH at Pt Temp 7.28 L ABG pCO2 at Pt Temp 74 H* ABG pO2 at Pt Temp 79 L ABG HCO3 35 H ABG Base Excess (Actual) 7.0 VBG pH VBG pCO2 VBG pO2 VBG HCO3 VBG O2 Saturation VBG Base Excess Sodium 142 Potassium 4.3 Chloride 104 Carbon Dioxide 32 H Anion Gap 10 L BUN 12 Creatinine 0.73 Estim Creat Clear Calc 92.5 Estimated GFR > 60 POC Glucose 184 H Random Glucose 163 H Lactic Acid Lactic Acid F/U @ 2Hr Calcium 8.7 Phosphorus Magnesium Total Bilirubin 0.2 Direct Bilirubin AST 15 ALT < 6 Alkaline Phosphatase 197 H Total Creatine Kinase Troponin I High Sens C-Reactive Protein B-Natriuretic Peptide Total Protein 6.9 Albumin 2.9 L Procalcitonin Urine Color Urine Appearance Urine pH Ur Specific [place] Urine Protein Urine Glucose (UA) Urine Ketones Urine Blood Urine Nitrite Ur Leukocyte Esterase Urine RBC Urine WBC Ur Squamous Epith Cells Ur Transition Epith Cell Urine Bacteria Hyaline Casts Stool Occult Blood Vancomycin Trough Random Vancomycin Influenza Type A (PCR) Influenza Type B (PCR) RSV RNA Qual (PCR) SARS-CoV-2 RNA (RT-PCR) Blood Type Antibody Screen Crossmatch 10/31/24 10/31/24 11/01/24 20:12 23:24 04:32 WBC 14.2 H RBC 3.42 L Hgb 8.6 L Hct 29.8 L MCV 87.1 MCH 25.1 L MCHC 28.9 L RDW 16.0 Plt Count 163 D MPV 12.0 Immature Gran % (Auto) 1.2 H Neut % (Auto) 59.9 Lymph % (Auto) 31.2 [place] % (Auto) 6.8 Eos % (Auto) 0.5 Baso % (Auto) 0.4 Lymph # (Auto) 4.4 [place] # (Auto) 1.0 Eos # (Auto) 0.1 Baso # (Auto) 0.1 Abs Immat Gran (auto) 0.17 H Absolute Neuts (auto) 8.5 H Absolute Nucleated RBC 0.120 H Nucleated RBC % (auto) 0.8 H Smear Tech's Comments Smear Path Review PT INR APTT O2 Saturation ABG pH at Pt Temp ABG pCO2 at Pt Temp ABG pO2 at Pt Temp ABG HCO3 ABG Base Excess (Actual) VBG pH VBG pCO2 VBG pO2 VBG HCO3 VBG O2 Saturation VBG Base Excess Sodium 141 139 Potassium 4.2 4.1 Chloride 102 105 Carbon Dioxide 30 H 23 Anion Gap 13 15 BUN 13 16 Creatinine 0.67 0.69 Estim Creat Clear Calc 100.8 97.9 Estimated GFR > 60 > 60 POC Glucose 191 H Random Glucose 218 H 166 H Lactic Acid Lactic Acid F/U @ 2Hr Calcium 8.2 L 8.1 L Phosphorus 2.4 L 2.6 L Magnesium 1.8 2.2 Total Bilirubin 0.3 1.0 Direct Bilirubin AST 25 2715 H ALT < 6 1215 H Alkaline Phosphatase 192 H 205 H Total Creatine Kinase Troponin I High Sens C-Reactive Protein B-Natriuretic Peptide Total Protein 6.3 L 6.3 L Albumin 2.6 L 3.6 Procalcitonin Urine Color Urine Appearance Urine pH Ur Specific [place] Urine Protein Urine Glucose (UA) Urine Ketones Urine Blood Urine Nitrite Ur Leukocyte Esterase Urine RBC Urine WBC Ur Squamous Epith Cells Ur Transition Epith Cell Urine Bacteria Hyaline Casts Stool Occult Blood Vancomycin Trough Random Vancomycin Influenza Type A (PCR) Influenza Type B (PCR) RSV RNA Qual (PCR) SARS-CoV-2 RNA (RT-PCR) Blood Type Antibody Screen Crossmatch 11/01/24 11/01/24 11/01/24 06:29 09:02 11:27 WBC RBC Hgb Hct MCV MCH MCHC RDW Plt Count MPV Immature Gran % (Auto) Neut % (Auto) Lymph % (Auto) [place] % (Auto) Eos % (Auto) Baso % (Auto) Lymph # (Auto) [place] # (Auto) Eos # (Auto) Baso # (Auto) Abs Immat Gran (auto) Absolute Neuts (auto) Absolute Nucleated RBC Nucleated RBC % (auto) Smear Tech's Comments Smear Path Review PT 25.0 H D INR 2.1 H APTT O2 Saturation ABG pH at Pt Temp ABG pCO2 at Pt Temp ABG pO2 at Pt Temp ABG HCO3 ABG Base Excess (Actual) VBG pH 7.37 VBG pCO2 52 VBG pO2 48 VBG HCO3 30 H VBG O2 Saturation 70.0 VBG Base Excess 4.5 Sodium Potassium Chloride Carbon Dioxide Anion Gap BUN Creatinine Estim Creat Clear Calc Estimated GFR POC Glucose 139 H Random Glucose Lactic Acid Lactic Acid F/U @ 2Hr Calcium Phosphorus Magnesium Total Bilirubin Direct Bilirubin AST ALT Alkaline Phosphatase Total Creatine Kinase Troponin I High Sens C-Reactive Protein B-Natriuretic Peptide Total Protein Albumin Procalcitonin Urine Color Urine Appearance Urine pH Ur Specific [place] Urine Protein Urine Glucose (UA) Urine Ketones Urine Blood Urine Nitrite Ur Leukocyte Esterase Urine RBC Urine WBC Ur Squamous Epith Cells Ur Transition Epith Cell Urine Bacteria Hyaline Casts Stool Occult Blood Vancomycin Trough Random Vancomycin Influenza Type A (PCR) Influenza Type B (PCR) RSV RNA Qual (PCR) SARS-CoV-2 RNA (RT-PCR) Blood Type Antibody Screen Crossmatch 11/01/24 11/01/24 11/01/24 12:56 17:48 23:12 WBC RBC Hgb Hct MCV MCH MCHC RDW Plt Count MPV Immature Gran % (Auto) Neut % (Auto) Lymph % (Auto) [place] % (Auto) Eos % (Auto) Baso % (Auto) Lymph # (Auto) [place] # (Auto) Eos # (Auto) Baso # (Auto) Abs Immat Gran (auto) Absolute Neuts (auto) Absolute Nucleated RBC Nucleated RBC % (auto) Smear Tech's Comments Smear Path Review PT INR APTT O2 Saturation ABG pH at Pt Temp ABG pCO2 at Pt Temp ABG pO2 at Pt Temp ABG HCO3 ABG Base Excess (Actual) VBG pH VBG pCO2 VBG pO2 VBG HCO3 VBG O2 Saturation VBG Base Excess Sodium 141 Potassium 3.9 Chloride 104 Carbon Dioxide 23 Anion Gap 18 BUN 17 H Creatinine 0.65 Estim Creat Clear Calc 110.5 Estimated GFR > 60 POC Glucose 153 H 137 H Random Glucose 153 H Lactic Acid Lactic Acid F/U @ 2Hr Calcium 8.1 L Phosphorus Magnesium 2.0 Total Bilirubin 0.9 Direct Bilirubin AST 4874 H ALT 1990 H Alkaline Phosphatase 208 H Total Creatine Kinase Troponin I High Sens C-Reactive Protein B-Natriuretic Peptide Total Protein 6.2 L Albumin 3.3 L Procalcitonin Urine Color Urine Appearance Urine pH Ur Specific [place] Urine Protein Urine Glucose (UA) Urine Ketones Urine Blood Urine Nitrite Ur Leukocyte Esterase Urine RBC Urine WBC Ur Squamous Epith Cells Ur Transition Epith Cell Urine Bacteria Hyaline Casts Stool Occult Blood Vancomycin Trough Random Vancomycin Influenza Type A (PCR) Influenza Type B (PCR) RSV RNA Qual (PCR) SARS-CoV-2 RNA (RT-PCR) Blood Type Antibody Screen Crossmatch 11/02/24 11/02/24 11/02/24 05:00 05:10 11:08 WBC 13.6 H RBC 3.46 L Hgb 8.8 L Hct 28.1 L MCV 81.2 D MCH 25.4 L MCHC 31.3 RDW 15.9 Plt Count 128 L MPV 11.9 Immature Gran % (Auto) 0.9 H Neut % (Auto) 70.0 Lymph % (Auto) 23.8 [place] % (Auto) 3.8 Eos % (Auto) 1.1 Baso % (Auto) 0.4 Lymph # (Auto) 3.2 [place] # (Auto) 0.5 Eos # (Auto) 0.2 Baso # (Auto) 0.1 Abs Immat Gran (auto) 0.12 H Absolute Neuts (auto) 9.5 H Absolute Nucleated RBC 0.040 H Nucleated RBC % (auto) 0.3 H Smear Tech's Comments Smear Path Review PT INR APTT O2 Saturation ABG pH at Pt Temp ABG pCO2 at Pt Temp ABG pO2 at Pt Temp ABG HCO3 ABG Base Excess (Actual) VBG pH 7.54 H VBG pCO2 34 VBG pO2 83 VBG HCO3 29 H VBG O2 Saturation 98.0 VBG Base Excess 7.3 Sodium 140 Potassium 2.7 L* D Chloride 103 Carbon Dioxide 24 Anion Gap 16 BUN 19 H Creatinine 0.66 Estim Creat Clear Calc 108.8 Estimated GFR > 60 POC Glucose 168 H Random Glucose 225 H Lactic Acid Lactic Acid F/U @ 2Hr Calcium 8.0 L Phosphorus 2.0 L Magnesium 1.7 Total Bilirubin 0.5 Direct Bilirubin AST 2236 H ALT 1473 H Alkaline Phosphatase 206 H Total Creatine Kinase Troponin I High Sens C-Reactive Protein B-Natriuretic Peptide Total Protein 5.8 L Albumin 2.9 L Procalcitonin Urine Color Urine Appearance Urine pH Ur Specific [place] Urine Protein Urine Glucose (UA) Urine Ketones Urine Blood Urine Nitrite Ur Leukocyte Esterase Urine RBC Urine WBC Ur Squamous Epith Cells Ur Transition Epith Cell Urine Bacteria Hyaline Casts Stool Occult Blood Vancomycin Trough Random Vancomycin 22.0 H Influenza Type A (PCR) Influenza Type B (PCR) RSV RNA Qual (PCR) SARS-CoV-2 RNA (RT-PCR) Blood Type Antibody Screen Crossmatch 11/02/24 11/02/24 11/02/24 12:03 12:34 17:26 WBC RBC Hgb Hct MCV MCH MCHC RDW Plt Count MPV Immature Gran % (Auto) Neut % (Auto) Lymph % (Auto) [place] % (Auto) Eos % (Auto) Baso % (Auto) Lymph # (Auto) [place] # (Auto) Eos # (Auto) Baso # (Auto) Abs Immat Gran (auto) Absolute Neuts (auto) Absolute Nucleated RBC Nucleated RBC % (auto) Smear Tech's Comments Smear Path Review PT INR APTT O2 Saturation ABG pH at Pt Temp ABG pCO2 at Pt Temp ABG pO2 at Pt Temp ABG HCO3 ABG Base Excess (Actual) VBG pH VBG pCO2 VBG pO2 VBG HCO3 VBG O2 Saturation VBG Base Excess Sodium 142 Potassium 3.1 L Chloride 103 Carbon Dioxide 30 H Anion Gap 12 BUN 19 H Creatinine 0.60 Estim Creat Clear Calc 120.5 Estimated GFR > 60 POC Glucose 180 H 197 H Random Glucose 186 H Lactic Acid Lactic Acid F/U @ 2Hr Calcium 7.9 L Phosphorus Magnesium 1.5 L Total Bilirubin Direct Bilirubin AST ALT Alkaline Phosphatase Total Creatine Kinase Troponin I High Sens C-Reactive Protein B-Natriuretic Peptide Total Protein Albumin Procalcitonin Urine Color Urine Appearance Urine pH Ur Specific [place] Urine Protein Urine Glucose (UA) Urine Ketones Urine Blood Urine Nitrite Ur Leukocyte Esterase Urine RBC Urine WBC Ur Squamous Epith Cells Ur Transition Epith Cell Urine Bacteria Hyaline Casts Stool Occult Blood Vancomycin Trough Random Vancomycin Influenza Type A (PCR) Influenza Type B (PCR) RSV RNA Qual (PCR) SARS-CoV-2 RNA (RT-PCR) Blood Type Antibody Screen Crossmatch 11/02/24 11/03/24 11/03/24 23:17 05:25 05:25 WBC 16.1 H RBC 3.40 L Hgb 8.7 L Hct 28.1 L MCV 82.6 MCH 25.6 L MCHC 31.0 RDW 16.5 H Plt Count 113 L MPV 11.8 Immature Gran % (Auto) 0.7 H Neut % (Auto) 75.3 H Lymph % (Auto) 19.3 L [place] % (Auto) 3.5 Eos % (Auto) 0.9 Baso % (Auto) 0.3 Lymph # (Auto) 3.1 [place] # (Auto) 0.6 Eos # (Auto) 0.2 Baso # (Auto) 0.1 Abs Immat Gran (auto) 0.12 H Absolute Neuts (auto) 12.1 H Absolute Nucleated RBC 0.020 H Nucleated RBC % (auto) 0.1 Smear Tech's Comments Smear Path Review PT INR APTT O2 Saturation ABG pH at Pt Temp ABG pCO2 at Pt Temp ABG pO2 at Pt Temp ABG HCO3 ABG Base Excess (Actual) VBG pH VBG pCO2 VBG pO2 VBG HCO3 VBG O2 Saturation VBG Base Excess Sodium 139 Potassium 3.2 L Chloride 100 Carbon Dioxide 29 Anion Gap 13 BUN 22 H Creatinine Cancelled 0.63 Estim Creat Clear Calc Cancelled Estimated GFR POC Glucose 214 H Random Glucose Lactic Acid Lactic Acid F/U @ 2Hr Calcium Phosphorus Magnesium Total Bilirubin Direct Bilirubin AST ALT Alkaline Phosphatase Total Creatine Kinase Troponin I High Sens C-Reactive Protein B-Natriuretic Peptide Total Protein Albumin Procalcitonin Urine Color Urine Appearance Urine pH Ur Specific [place] Urine Protein Urine Glucose (UA) Urine Ketones Urine Blood Urine Nitrite Ur Leukocyte Esterase Urine RBC Urine WBC Ur Squamous Epith Cells Ur Transition Epith Cell Urine Bacteria Hyaline Casts Stool Occult Blood Vancomycin Trough Random Vancomycin Influenza Type A (PCR) Influenza Type B (PCR) RSV RNA Qual (PCR) SARS-CoV-2 RNA (RT-PCR) Blood Type Antibody Screen Crossmatch 11/03/24 11/03/2425 05:25 05:25 05:38 WBC RBC Hgb Hct MCV MCH MCHC RDW Plt Count MPV Immature Gran % (Auto) Neut % (Auto) Lymph % (Auto) [place] % (Auto) Eos % (Auto) Baso % (Auto) Lymph # (Auto) [place] # (Auto) Eos # (Auto) Baso # (Auto) Abs Immat Gran (auto) Absolute Neuts (auto) Absolute Nucleated RBC Nucleated RBC % (auto) Smear Tech's Comments Smear Path Review PT INR APTT O2 Saturation ABG pH at Pt Temp ABG pCO2 at Pt Temp ABG pO2 at Pt Temp ABG HCO3 ABG Base Excess (Actual) VBG pH 7.44 H VBG pCO2 52 VBG pO2 42 VBG HCO3 36 H VBG O2 Saturation 63.0 VBG Base Excess 10.6 Sodium Potassium Chloride Carbon Dioxide Anion Gap BUN Creatinine Estim Creat Clear Calc 114.3 Estimated GFR Cancelled > 60 POC Glucose Random Glucose 245 H Lactic Acid Lactic Acid F/U @ 2Hr Calcium 7.8 L Phosphorus 2.0 L Magnesium 1.5 L Total Bilirubin 0.4 Direct Bilirubin AST 677 H ALT 906 H Alkaline Phosphatase 211 H Total Creatine Kinase Troponin I High Sens C-Reactive Protein B-Natriuretic Peptide Total Protein 6.0 L Albumin 2.7 L Procalcitonin Urine Color Urine Appearance Urine pH Ur Specific [place] Urine Protein Urine Glucose (UA) Urine Ketones Urine Blood Urine Nitrite Ur Leukocyte Esterase Urine RBC Urine WBC Ur Squamous Epith Cells Ur Transition Epith Cell Urine Bacteria Hyaline Casts Stool Occult Blood Vancomycin Trough Random Vancomycin Influenza Type A (PCR) Influenza Type B (PCR) RSV RNA Qual (PCR) SARS-CoV-2 RNA (RT-PCR) Blood Type Antibody Screen Crossmatch 11/03/24 11/03/24 11/03/24 06:07 11:44 12:28 WBC RBC Hgb Hct MCV MCH MCHC RDW Plt Count MPV Immature Gran % (Auto) Neut % (Auto) Lymph % (Auto) [place] % (Auto) Eos % (Auto) Baso % (Auto) Lymph # (Auto) [place] # (Auto) Eos # (Auto) Baso # (Auto) Abs Immat Gran (auto) Absolute Neuts (auto) Absolute Nucleated RBC Nucleated RBC % (auto) Smear Tech's Comments Smear Path Review PT INR APTT O2 Saturation ABG pH at Pt Temp ABG pCO2 at Pt Temp ABG pO2 at Pt Temp ABG HCO3 ABG Base Excess (Actual) VBG pH VBG pCO2 VBG pO2 VBG HCO3 VBG O2 Saturation VBG Base Excess Sodium 139 Potassium 3.2 L Chloride 101 Carbon Dioxide 30 H Anion Gap 11 L BUN 21 H Creatinine 0.57 Estim Creat Clear Calc 126.3 Estimated GFR > 60 POC Glucose 213 H 200 H Random Glucose 227 H Lactic Acid Lactic Acid F/U @ 2Hr Calcium 7.6 L Phosphorus 1.9 L Magnesium Total Bilirubin 0.4 Direct Bilirubin AST 472 H ALT 804 H Alkaline Phosphatase 197 H Total Creatine Kinase Troponin I High Sens C-Reactive Protein B-Natriuretic Peptide Total Protein 5.8 L Albumin 2.6 L Procalcitonin Urine Color Urine Appearance Urine pH Ur Specific [place] Urine Protein Urine Glucose (UA) Urine Ketones Urine Blood Urine Nitrite Ur Leukocyte Esterase Urine RBC Urine WBC Ur Squamous Epith Cells Ur Transition Epith Cell Urine Bacteria Hyaline Casts Stool Occult Blood Vancomycin Trough Random Vancomycin Influenza Type A (PCR) Influenza Type B (PCR) RSV RNA Qual (PCR) SARS-CoV-2 RNA (RT-PCR) Blood Type Antibody Screen Crossmatch 11/03/24 11/03/24 11/04/24 14:59 17:38 00:08 WBC RBC Hgb Hct MCV MCH MCHC RDW Plt Count MPV Immature Gran % (Auto) Neut % (Auto) Lymph % (Auto) [place] % (Auto) Eos % (Auto) Baso % (Auto) Lymph # (Auto) [place] # (Auto) Eos # (Auto) Baso # (Auto) Abs Immat Gran (auto) Absolute Neuts (auto) Absolute Nucleated RBC Nucleated RBC % (auto) Smear Tech's Comments Smear Path Review PT INR APTT O2 Saturation ABG pH at Pt Temp ABG pCO2 at Pt Temp ABG pO2 at Pt Temp ABG HCO3 ABG Base Excess (Actual) VBG pH VBG pCO2 VBG pO2 VBG HCO3 VBG O2 Saturation VBG Base Excess Sodium Potassium Chloride Carbon Dioxide Anion Gap BUN Creatinine Estim Creat Clear Calc Estimated GFR POC Glucose 231 H 209 H 186 H Random Glucose Lactic Acid Lactic Acid F/U @ 2Hr Calcium Phosphorus Magnesium Total Bilirubin Direct Bilirubin AST ALT Alkaline Phosphatase Total Creatine Kinase Troponin I High Sens C-Reactive Protein B-Natriuretic Peptide Total Protein Albumin Procalcitonin Urine Color Urine Appearance Urine pH Ur Specific [place] Urine Protein Urine Glucose (UA) Urine Ketones Urine Blood Urine Nitrite Ur Leukocyte Esterase Urine RBC Urine WBC Ur Squamous Epith Cells Ur Transition Epith Cell Urine Bacteria Hyaline Casts Stool Occult Blood Vancomycin Trough Random Vancomycin Influenza Type A (PCR) Influenza Type B (PCR) RSV RNA Qual (PCR) SARS-CoV-2 RNA (RT-PCR) Blood Type Antibody Screen Crossmatch 11/04/24 11/04/24 11/04/24 04:25 04:30 08:11 WBC 15.7 H RBC 3.60 L Hgb 9.2 L Hct 29.4 L MCV 81.7 MCH 25.6 L MCHC 31.3 RDW 16.5 H Plt Count 80 L D MPV 11.5 Immature Gran % (Auto) 1.1 H Neut % (Auto) 69.8 Lymph % (Auto) 21.6 [place] % (Auto) 4.9 Eos % (Auto) 2.3 Baso % (Auto) 0.3 Lymph # (Auto) 3.4 [place] # (Auto) 0.8 Eos # (Auto) 0.4 Baso # (Auto) 0.1 Abs Immat Gran (auto) 0.17 H Absolute Neuts (auto) 11.0 H Absolute Nucleated RBC 0.020 H Nucleated RBC % (auto) 0.1 Smear Tech's Comments VERIFIED Smear Path Review PT INR APTT O2 Saturation 100.0 ABG pH at Pt Temp 7.55 H ABG pCO2 at Pt Temp 41 ABG pO2 at Pt Temp 127 H ABG HCO3 36 H ABG Base Excess (Actual) 13.2 VBG pH VBG pCO2 VBG pO2 VBG HCO3 VBG O2 Saturation VBG Base Excess Sodium 142 Potassium 2.8 L* Chloride 102 Carbon Dioxide 31 H Anion Gap 12 BUN 21 H Creatinine 0.51 Estim Creat Clear Calc 141.2 Estimated GFR > 60 POC Glucose Random Glucose 174 H Lactic Acid Lactic Acid F/U @ 2Hr Calcium 7.3 L Phosphorus 1.9 L Magnesium 1.4 L* Total Bilirubin 0.5 Direct Bilirubin AST 245 H ALT 603 H Alkaline Phosphatase 216 H Total Creatine Kinase Troponin I High Sens C-Reactive Protein B-Natriuretic Peptide Total Protein 6.0 L Albumin 2.5 L Procalcitonin Urine Color Urine Appearance Urine pH Ur Specific [place] Urine Protein Urine Glucose (UA) Urine Ketones Urine Blood Urine Nitrite Ur Leukocyte Esterase Urine RBC Urine WBC Ur Squamous Epith Cells Ur Transition Epith Cell Urine Bacteria Hyaline Casts Stool Occult Blood Vancomycin Trough 21.0 H Random Vancomycin Influenza Type A (PCR) Influenza Type B (PCR) RSV RNA Qual (PCR) SARS-CoV-2 RNA (RT-PCR) Blood Type Antibody Screen Crossmatch 11/04/24 11/04/24 11/04/24 11:56 17:25 20:45 WBC RBC Hgb Hct MCV MCH MCHC RDW Plt Count MPV Immature Gran % (Auto) Neut % (Auto) Lymph % (Auto) [place] % (Auto) Eos % (Auto) Baso % (Auto) Lymph # (Auto) [place] # (Auto) Eos # (Auto) Baso # (Auto) Abs Immat Gran (auto) Absolute Neuts (auto) Absolute Nucleated RBC Nucleated RBC % (auto) Smear Tech's Comments Smear Path Review PT INR APTT O2 Saturation ABG pH at Pt Temp ABG pCO2 at Pt Temp ABG pO2 at Pt Temp ABG HCO3 ABG Base Excess (Actual) VBG pH VBG pCO2 VBG pO2 VBG HCO3 VBG O2 Saturation VBG Base Excess Sodium 145 Potassium 3.1 L Chloride 104 Carbon Dioxide 31 H Anion Gap 13 BUN 21 H Creatinine 0.54 Estim Creat Clear Calc 131.4 Estimated GFR > 60 POC Glucose 164 H 111 Random Glucose 137 H Lactic Acid Lactic Acid F/U @ 2Hr Calcium 7.2 L Phosphorus 3.3 Magnesium 1.7 Total Bilirubin 0.5 Direct Bilirubin AST 130 H ALT 419 H Alkaline Phosphatase 232 H Total Creatine Kinase Troponin I High Sens C-Reactive Protein B-Natriuretic Peptide Total Protein 6.1 L Albumin 2.5 L Procalcitonin Urine Color Urine Appearance Urine pH Ur Specific [place] Urine Protein Urine Glucose (UA) Urine Ketones Urine Blood Urine Nitrite Ur Leukocyte Esterase Urine RBC Urine WBC Ur Squamous Epith Cells Ur Transition Epith Cell Urine Bacteria Hyaline Casts Stool Occult Blood Vancomycin Trough Random Vancomycin Influenza Type A (PCR) Influenza Type B (PCR) RSV RNA Qual (PCR) SARS-CoV-2 RNA (RT-PCR) Blood Type Antibody Screen Crossmatch 11/04/24 11/05/24 11/05/24 23:05 04:20 04:29 WBC 13.7 H RBC 2.88 L Hgb 7.5 L Hct 24.7 L MCV 85.8 MCH 26.0 L MCHC 30.4 L RDW 16.6 H Plt Count 53 L D MPV 12.2 Immature Gran % (Auto) 0.8 H Neut % (Auto) 69.6 Lymph % (Auto) 21.6 [place] % (Auto) 6.6 Eos % (Auto) 1.2 Baso % (Auto) 0.2 Lymph # (Auto) 3.0 [place] # (Auto) 0.9 Eos # (Auto) 0.2 Baso # (Auto) 0.0 Abs Immat Gran (auto) 0.11 H Absolute Neuts (auto) 9.6 H Absolute Nucleated RBC 0.050 H Nucleated RBC % (auto) 0.4 H Smear Tech's Comments Smear Path Review PT INR APTT O2 Saturation 100.0 ABG pH at Pt Temp 7.42 ABG pCO2 at Pt Temp 53 H ABG pO2 at Pt Temp 160 H ABG HCO3 34 H ABG Base Excess (Actual) 9.0 VBG pH VBG pCO2 VBG pO2 VBG HCO3 VBG O2 Saturation VBG Base Excess Sodium 145 Potassium 3.2 L Chloride 104 Carbon Dioxide 28 Anion Gap 16 BUN 20 H Creatinine 0.55 Estim Creat Clear Calc 129.1 Estimated GFR > 60 POC Glucose 153 H Random Glucose 232 H Lactic Acid Lactic Acid F/U @ 2Hr Calcium 7.1 L Phosphorus 3.1 Magnesium 1.6 Total Bilirubin 1.1 H Direct Bilirubin AST 71 H ALT 276 H Alkaline Phosphatase 157 H Total Creatine Kinase Troponin I High Sens C-Reactive Protein B-Natriuretic Peptide Total Protein 6.3 L Albumin 3.4 L Procalcitonin Urine Color Urine Appearance Urine pH Ur Specific [place] Urine Protein Urine Glucose (UA) Urine Ketones Urine Blood Urine Nitrite Ur Leukocyte Esterase Urine RBC Urine WBC Ur Squamous Epith Cells Ur Transition Epith Cell Urine Bacteria Hyaline Casts Stool Occult Blood Vancomycin Trough Random Vancomycin Influenza Type A (PCR) Influenza Type B (PCR) RSV RNA Qual (PCR) SARS-CoV-2 RNA (RT-PCR) Blood Type Antibody Screen Crossmatch 11/05/24 11/05/24 11/05/24 09:46 11:22 17:23 WBC RBC Hgb Hct MCV MCH MCHC RDW Plt Count MPV Immature Gran % (Auto) Neut % (Auto) Lymph % (Auto) [place] % (Auto) Eos % (Auto) Baso % (Auto) Lymph # (Auto) [place] # (Auto) Eos # (Auto) Baso # (Auto) Abs Immat Gran (auto) Absolute Neuts (auto) Absolute Nucleated RBC Nucleated RBC % (auto) Smear Tech's Comments Smear Path Review PT INR APTT O2 Saturation ABG pH at Pt Temp ABG pCO2 at Pt Temp ABG pO2 at Pt Temp ABG HCO3 ABG Base Excess (Actual) VBG pH VBG pCO2 VBG pO2 VBG HCO3 VBG O2 Saturation VBG Base Excess Sodium Potassium Chloride Carbon Dioxide Anion Gap BUN Creatinine Estim Creat Clear Calc Estimated GFR POC Glucose 214 H 192 H Random Glucose Lactic Acid Lactic Acid F/U @ 2Hr Calcium Phosphorus Magnesium Total Bilirubin Direct Bilirubin AST ALT Alkaline Phosphatase Total Creatine Kinase Troponin I High Sens C-Reactive Protein B-Natriuretic Peptide Total Protein Albumin Procalcitonin Urine Color Urine Appearance Urine pH Ur Specific [place] Urine Protein Urine Glucose (UA) Urine Ketones Urine Blood Urine Nitrite Ur Leukocyte Esterase Urine RBC Urine WBC Ur Squamous Epith Cells Ur Transition Epith Cell Urine Bacteria Hyaline Casts Stool Occult Blood Vancomycin Trough Random Vancomycin 15.4 Influenza Type A (PCR) Influenza Type B (PCR) RSV RNA Qual (PCR) SARS-CoV-2 RNA (RT-PCR) Blood Type Antibody Screen Crossmatch 11/05/24 11/05/24 11/06/24 20:34 23:21 04:07 WBC 15.3 H 15.9 H RBC 3.10 L 3.11 L Hgb 8.0 L 8.1 L Hct 26.4 L 26.4 L MCV 85.2 84.9 MCH 25.8 L 26.0 L MCHC 30.3 L 30.7 L RDW 16.6 H 16.8 H Plt Count 50 L 50 L MPV 12.2 12.0 Immature Gran % (Auto) 0.8 H Neut % (Auto) 69.9 Lymph % (Auto) 20.9 [place] % (Auto) 6.8 Eos % (Auto) 1.3 Baso % (Auto) 0.3 Lymph # (Auto) 3.3 [place] # (Auto) 1.1 Eos # (Auto) 0.2 Baso # (Auto) 0.0 Abs Immat Gran (auto) 0.13 H Absolute Neuts (auto) 11.1 H Absolute Nucleated RBC 0.070 H 0.070 H Nucleated RBC % (auto) 0.5 H 0.4 H Smear Tech's Comments Smear Path Review PT INR APTT O2 Saturation ABG pH at Pt Temp ABG pCO2 at Pt Temp ABG pO2 at Pt Temp ABG HCO3 ABG Base Excess (Actual) VBG pH VBG pCO2 VBG pO2 VBG HCO3 VBG O2 Saturation VBG Base Excess Sodium 143 143 Potassium 4.0 D 3.5 Chloride 106 104 Carbon Dioxide 27 28 Anion Gap 14 15 BUN 21 H 20 H Creatinine 0.55 0.59 Estim Creat Clear Calc 130.3 121.5 Estimated GFR > 60 > 60 POC Glucose 220 H Random Glucose 214 H 236 H Lactic Acid Lactic Acid F/U @ 2Hr Calcium 7.2 L 7.3 L Phosphorus 2.2 L 2.2 L Magnesium 1.5 L 1.6 Total Bilirubin 0.7 0.6 Direct Bilirubin AST 51 H 45 H ALT 212 H 187 H Alkaline Phosphatase 163 H 169 H Total Creatine Kinase Troponin I High Sens C-Reactive Protein B-Natriuretic Peptide Total Protein 6.1 L 6.2 L Albumin 3.0 L 3.0 L Procalcitonin Urine Color Urine Appearance Urine pH Ur Specific [place] Urine Protein Urine Glucose (UA) Urine Ketones Urine Blood Urine Nitrite Ur Leukocyte Esterase Urine RBC Urine WBC Ur Squamous Epith Cells Ur Transition Epith Cell Urine Bacteria Hyaline Casts Stool Occult Blood Vancomycin Trough Random Vancomycin Influenza Type A (PCR) Influenza Type B (PCR) RSV RNA Qual (PCR) SARS-CoV-2 RNA (RT-PCR) Blood Type Antibody Screen Crossmatch 11/06/24 11/06/24 11/06/24 04:11 10:00 11:57 WBC RBC Hgb Hct MCV MCH MCHC RDW Plt Count MPV Immature Gran % (Auto) Neut % (Auto) Lymph % (Auto) [place] % (Auto) Eos % (Auto) Baso % (Auto) Lymph # (Auto) [place] # (Auto) Eos # (Auto) Baso # (Auto) Abs Immat Gran (auto) Absolute Neuts (auto) Absolute Nucleated RBC Nucleated RBC % (auto) Smear Tech's Comments Smear Path Review PT INR APTT O2 Saturation 95.0 ABG pH at Pt Temp 7.40 ABG pCO2 at Pt Temp 54 H ABG pO2 at Pt Temp 77 L ABG HCO3 34 H ABG Base Excess (Actual) 8.4 VBG pH VBG pCO2 VBG pO2 VBG HCO3 VBG O2 Saturation VBG Base Excess Sodium Potassium Chloride Carbon Dioxide Anion Gap BUN Creatinine Estim Creat Clear Calc Estimated GFR POC Glucose 215 H Random Glucose Lactic Acid Lactic Acid F/U @ 2Hr Calcium Phosphorus Magnesium Total Bilirubin Direct Bilirubin AST ALT Alkaline Phosphatase Total Creatine Kinase Troponin I High Sens C-Reactive Protein B-Natriuretic Peptide Total Protein Albumin Procalcitonin Urine Color Urine Appearance Urine pH Ur Specific [place] Urine Protein Urine Glucose (UA) Urine Ketones Urine Blood Urine Nitrite Ur Leukocyte Esterase Urine RBC Urine WBC Ur Squamous Epith Cells Ur Transition Epith Cell Urine Bacteria Hyaline Casts Stool Occult Blood Vancomycin Trough Random Vancomycin 17.8 Influenza Type A (PCR) Influenza Type B (PCR) RSV RNA Qual (PCR) SARS-CoV-2 RNA (RT-PCR) Blood Type Antibody Screen Crossmatch 11/06/24 11/06/24 11/06/24 17:57 18:13 23:54 WBC RBC Hgb Hct MCV MCH MCHC RDW Plt Count MPV Immature Gran % (Auto) Neut % (Auto) Lymph % (Auto) [place] % (Auto) Eos % (Auto) Baso % (Auto) Lymph # (Auto) [place] # (Auto) Eos # (Auto) Baso # (Auto) Abs Immat Gran (auto) Absolute Neuts (auto) Absolute Nucleated RBC Nucleated RBC % (auto) Smear Tech's Comments Smear Path Review PT INR APTT O2 Saturation ABG pH at Pt Temp ABG pCO2 at Pt Temp ABG pO2 at Pt Temp ABG HCO3 ABG Base Excess (Actual) VBG pH VBG pCO2 VBG pO2 VBG HCO3 VBG O2 Saturation VBG Base Excess Sodium 143 Potassium 3.7 Chloride 103 Carbon Dioxide 32 H Anion Gap 12 BUN 18 H Creatinine 0.57 Estim Creat Clear Calc 125.7 Estimated GFR > 60 POC Glucose 205 H 206 H Random Glucose 222 H Lactic Acid Lactic Acid F/U @ 2Hr Calcium 7.9 L D Phosphorus 2.7 Magnesium 1.5 L Total Bilirubin Direct Bilirubin AST ALT Alkaline Phosphatase Total Creatine Kinase Troponin I High Sens C-Reactive Protein B-Natriuretic Peptide Total Protein Albumin Procalcitonin Urine Color Urine Appearance Urine pH Ur Specific [place] Urine Protein Urine Glucose (UA) Urine Ketones Urine Blood Urine Nitrite Ur Leukocyte Esterase Urine RBC Urine WBC Ur Squamous Epith Cells Ur Transition Epith Cell Urine Bacteria Hyaline Casts Stool Occult Blood Vancomycin Trough Random Vancomycin Influenza Type A (PCR) Influenza Type B (PCR) RSV RNA Qual (PCR) SARS-CoV-2 RNA (RT-PCR) Blood Type Antibody Screen Crossmatch 11/07/24 11/07/24 11/07/24 05:27 05:28 05:32 WBC 17.3 H RBC 3.09 L Hgb 7.9 L Hct 26.0 L MCV 84.1 MCH 25.6 L MCHC 30.4 L RDW 16.6 H Plt Count 70 L D MPV 12.1 Immature Gran % (Auto) 0.9 H Neut % (Auto) 73.6 H Lymph % (Auto) 17.8 L [place] % (Auto) 5.0 Eos % (Auto) 2.5 Baso % (Auto) 0.2 Lymph # (Auto) 3.1 [place] # (Auto) 0.9 Eos # (Auto) 0.4 Baso # (Auto) 0.0 Abs Immat Gran (auto) 0.15 H Absolute Neuts (auto) 12.7 H Absolute Nucleated RBC 0.020 H Nucleated RBC % (auto) 0.1 Smear Tech's Comments Smear Path Review PT INR APTT O2 Saturation ABG pH at Pt Temp ABG pCO2 at Pt Temp ABG pO2 at Pt Temp ABG HCO3 ABG Base Excess (Actual) VBG pH 7.62 H* VBG pCO2 42 VBG pO2 43 VBG HCO3 43 H VBG O2 Saturation 74.0 VBG Base Excess 20.4 Sodium 143 Potassium 3.2 L Chloride 100 Carbon Dioxide 34 H Anion Gap 12 BUN 19 H Creatinine 0.56 Estim Creat Clear Calc 122.3 Estimated GFR > 60 POC Glucose 184 H Random Glucose 204 H Lactic Acid Lactic Acid F/U @ 2Hr Calcium 8.0 L Phosphorus 2.1 L Magnesium 1.6 Total Bilirubin Direct Bilirubin AST ALT Alkaline Phosphatase Total Creatine Kinase Troponin I High Sens C-Reactive Protein B-Natriuretic Peptide Total Protein Albumin 2.7 L Procalcitonin Urine Color Urine Appearance Urine pH Ur Specific [place] Urine Protein Urine Glucose (UA) Urine Ketones Urine Blood Urine Nitrite Ur Leukocyte Esterase Urine RBC Urine WBC Ur Squamous Epith Cells Ur Transition Epith Cell Urine Bacteria Hyaline Casts Stool Occult Blood Vancomycin Trough Random Vancomycin Influenza Type A (PCR) Influenza Type B (PCR) RSV RNA Qual (PCR) SARS-CoV-2 RNA (RT-PCR) Blood Type Antibody Screen Crossmatch 11/07/24 11/07/24 11/07/24 10:24 11:54 17:17 WBC RBC Hgb Hct MCV MCH MCHC RDW Plt Count MPV Immature Gran % (Auto) Neut % (Auto) Lymph % (Auto) [place] % (Auto) Eos % (Auto) Baso % (Auto) Lymph # (Auto) [place] # (Auto) Eos # (Auto) Baso # (Auto) Abs Immat Gran (auto) Absolute Neuts (auto) Absolute Nucleated RBC Nucleated RBC % (auto) Smear Tech's Comments Smear Path Review PT INR APTT O2 Saturation ABG pH at Pt Temp ABG pCO2 at Pt Temp ABG pO2 at Pt Temp ABG HCO3 ABG Base Excess (Actual) VBG pH VBG pCO2 VBG pO2 VBG HCO3 VBG O2 Saturation VBG Base Excess Sodium Potassium Chloride Carbon Dioxide Anion Gap BUN Creatinine Estim Creat Clear Calc Estimated GFR POC Glucose 229 H 189 H Random Glucose Lactic Acid Lactic Acid F/U @ 2Hr Calcium Phosphorus Magnesium Total Bilirubin Direct Bilirubin AST ALT Alkaline Phosphatase Total Creatine Kinase Troponin I High Sens C-Reactive Protein B-Natriuretic Peptide Total Protein Albumin Procalcitonin Urine Color Urine Appearance Urine pH Ur Specific [place] Urine Protein Urine Glucose (UA) Urine Ketones Urine Blood Urine Nitrite Ur Leukocyte Esterase Urine RBC Urine WBC Ur Squamous Epith Cells Ur Transition Epith Cell Urine Bacteria Hyaline Casts Stool Occult Blood Vancomycin Trough Random Vancomycin 19.4 Influenza Type A (PCR) Influenza Type B (PCR) RSV RNA Qual (PCR) SARS-CoV-2 RNA (RT-PCR) Blood Type Antibody Screen Crossmatch 11/07/24 11/08/24 11/08/24 18:06 00:14 05:24 WBC 16.9 H RBC 2.93 L Hgb 7.5 L Hct 24.3 L MCV 82.9 MCH 25.6 L MCHC 30.9 L RDW 16.6 H Plt Count 88 L D MPV 12.7 H Immature Gran % (Auto) 0.7 H Neut % (Auto) 67.5 Lymph % (Auto) 22.4 [place] % (Auto) 5.4 Eos % (Auto) 3.8 Baso % (Auto) 0.2 Lymph # (Auto) 3.8 [place] # (Auto) 0.9 Eos # (Auto) 0.6 H Baso # (Auto) 0.0 Abs Immat Gran (auto) 0.11 H Absolute Neuts (auto) 11.4 H Absolute Nucleated RBC 0.030 H Nucleated RBC % (auto) 0.2 Smear Tech's Comments Smear Path Review PT INR APTT O2 Saturation ABG pH at Pt Temp ABG pCO2 at Pt Temp ABG pO2 at Pt Temp ABG HCO3 ABG Base Excess (Actual) VBG pH 7.54 H VBG pCO2 53 VBG pO2 47 VBG HCO3 46 H VBG O2 Saturation 76.0 VBG Base Excess 21.5 Sodium 144 Potassium 3.2 L Chloride 95 L Carbon Dioxide 40 H* Anion Gap 12 BUN 19 H Creatinine 0.56 Estim Creat Clear Calc 122.3 Estimated GFR > 60 POC Glucose 239 H Random Glucose 213 H Lactic Acid Lactic Acid F/U @ 2Hr Calcium 8.5 D Phosphorus 2.9 Magnesium 1.6 Total Bilirubin Direct Bilirubin AST ALT Alkaline Phosphatase Total Creatine Kinase Troponin I High Sens C-Reactive Protein B-Natriuretic Peptide Total Protein Albumin Procalcitonin Urine Color Urine Appearance Urine pH Ur Specific [place] Urine Protein Urine Glucose (UA) Urine Ketones Urine Blood Urine Nitrite Ur Leukocyte Esterase Urine RBC Urine WBC Ur Squamous Epith Cells Ur Transition Epith Cell Urine Bacteria Hyaline Casts Stool Occult Blood Vancomycin Trough Random Vancomycin Influenza Type A (PCR) Influenza Type B (PCR) RSV RNA Qual (PCR) SARS-CoV-2 RNA (RT-PCR) Blood Type Antibody Screen Crossmatch 11/08/24 11/08/24 11/08/24 05:25 06:03 11:15 WBC RBC Hgb Hct MCV MCH MCHC RDW Plt Count MPV Immature Gran % (Auto) Neut % (Auto) Lymph % (Auto) [place] % (Auto) Eos % (Auto) Baso % (Auto) Lymph # (Auto) [place] # (Auto) Eos # (Auto) Baso # (Auto) Abs Immat Gran (auto) Absolute Neuts (auto) Absolute Nucleated RBC Nucleated RBC % (auto) Smear Tech's Comments Smear Path Review PT INR APTT O2 Saturation ABG pH at Pt Temp ABG pCO2 at Pt Temp ABG pO2 at Pt Temp ABG HCO3 ABG Base Excess (Actual) VBG pH VBG pCO2 VBG pO2 VBG HCO3 VBG O2 Saturation VBG Base Excess Sodium 142 Potassium 3.0 L Chloride 93 L Carbon Dioxide 37 H Anion Gap 15 BUN 18 H Creatinine 0.59 Estim Creat Clear Calc 116.1 Estimated GFR > 60 POC Glucose 188 H 242 H Random Glucose 213 H Lactic Acid Lactic Acid F/U @ 2Hr Calcium 8.2 L Phosphorus 2.7 Magnesium 1.6 Total Bilirubin Direct Bilirubin AST ALT Alkaline Phosphatase Total Creatine Kinase Troponin I High Sens C-Reactive Protein B-Natriuretic Peptide Total Protein Albumin 3.0 L Procalcitonin Urine Color Urine Appearance Urine pH Ur Specific [place] Urine Protein Urine Glucose (UA) Urine Ketones Urine Blood Urine Nitrite Ur Leukocyte Esterase Urine RBC Urine WBC Ur Squamous Epith Cells Ur Transition Epith Cell Urine Bacteria Hyaline Casts Stool Occult Blood Vancomycin Trough Random Vancomycin Influenza Type A (PCR) Influenza Type B (PCR) RSV RNA Qual (PCR) SARS-CoV-2 RNA (RT-PCR) Blood Type Antibody Screen Crossmatch 11/08/24 11/08/24 11/08/24 17:28 18:04 23:28 WBC RBC Hgb Hct MCV MCH MCHC RDW Plt Count MPV Immature Gran % (Auto) Neut % (Auto) Lymph % (Auto) [place] % (Auto) Eos % (Auto) Baso % (Auto) Lymph # (Auto) [place] # (Auto) Eos # (Auto) Baso # (Auto) Abs Immat Gran (auto) Absolute Neuts (auto) Absolute Nucleated RBC Nucleated RBC % (auto) Smear Tech's Comments Smear Path Review PT INR APTT O2 Saturation ABG pH at Pt Temp ABG pCO2 at Pt Temp ABG pO2 at Pt Temp ABG HCO3 ABG Base Excess (Actual) VBG pH VBG pCO2 VBG pO2 VBG HCO3 VBG O2 Saturation VBG Base Excess Sodium 142 Potassium 2.7 L* Chloride 91 L Carbon Dioxide 42 H* Anion Gap 12 BUN 19 H Creatinine 0.54 Estim Creat Clear Calc 126.9 Estimated GFR > 60 POC Glucose 198 H 222 H Random Glucose 209 H Lactic Acid Lactic Acid F/U @ 2Hr Calcium 8.5 Phosphorus 2.8 Magnesium 1.7 Total Bilirubin Direct Bilirubin AST ALT Alkaline Phosphatase Total Creatine Kinase Troponin I High Sens C-Reactive Protein B-Natriuretic Peptide Total Protein Albumin Procalcitonin Urine Color Urine Appearance Urine pH Ur Specific [place] Urine Protein Urine Glucose (UA) Urine Ketones Urine Blood Urine Nitrite Ur Leukocyte Esterase Urine RBC Urine WBC Ur Squamous Epith Cells Ur Transition Epith Cell Urine Bacteria Hyaline Casts Stool Occult Blood Vancomycin Trough Random Vancomycin 17.6 Influenza Type A (PCR) Influenza Type B (PCR) RSV RNA Qual (PCR) SARS-CoV-2 RNA (RT-PCR) Blood Type Antibody Screen Crossmatch 11/09/24 11/09/24 11/09/24 05:19 05:26 05:47 WBC 16.3 H RBC 2.93 L Hgb 7.5 L Hct 24.7 L MCV 84.3 MCH 25.6 L MCHC 30.4 L RDW 16.9 H Plt Count 110 L MPV 12.5 H Immature Gran % (Auto) 0.7 H Neut % (Auto) 63.6 Lymph % (Auto) 25.0 [place] % (Auto) 6.1 Eos % (Auto) 4.2 H Baso % (Auto) 0.4 Lymph # (Auto) 4.1 [place] # (Auto) 1.0 Eos # (Auto) 0.7 H Baso # (Auto) 0.1 Abs Immat Gran (auto) 0.12 H Absolute Neuts (auto) 10.4 H Absolute Nucleated RBC 0.020 H Nucleated RBC % (auto) 0.1 Smear Tech's Comments Smear Path Review PT INR APTT O2 Saturation ABG pH at Pt Temp ABG pCO2 at Pt Temp ABG pO2 at Pt Temp ABG HCO3 ABG Base Excess (Actual) VBG pH 7.51 H VBG pCO2 58 VBG pO2 65 VBG HCO3 47 H VBG O2 Saturation Not Reportable VBG Base Excess 21.5 Sodium 142 Potassium 3.5 D Chloride 93 L Carbon Dioxide 38 H Anion Gap 15 BUN 21 H Creatinine 0.57 Estim Creat Clear Calc 122.8 Estimated GFR > 60 POC Glucose 177 H Random Glucose 177 H Lactic Acid Lactic Acid F/U @ 2Hr Calcium 8.5 Phosphorus 2.5 L Magnesium 1.7 Total Bilirubin Direct Bilirubin AST ALT Alkaline Phosphatase Total Creatine Kinase Troponin I High Sens C-Reactive Protein B-Natriuretic Peptide Total Protein Albumin 3.1 L Procalcitonin Urine Color Urine Appearance Urine pH Ur Specific [place] Urine Protein Urine Glucose (UA) Urine Ketones Urine Blood Urine Nitrite Ur Leukocyte Esterase Urine RBC Urine WBC Ur Squamous Epith Cells Ur Transition Epith Cell Urine Bacteria Hyaline Casts Stool Occult Blood Vancomycin Trough Random Vancomycin Influenza Type A (PCR) Influenza Type B (PCR) RSV RNA Qual (PCR) SARS-CoV-2 RNA (RT-PCR) Blood Type Antibody Screen Crossmatch 02/11/09/24 11/09/24 11:18 18:35 18:40 WBC RBC Hgb Hct MCV MCH MCHC RDW Plt Count MPV Immature Gran % (Auto) Neut % (Auto) Lymph % (Auto) [place] % (Auto) Eos % (Auto) Baso % (Auto) Lymph # (Auto) [place] # (Auto) Eos # (Auto) Baso # (Auto) Abs Immat Gran (auto) Absolute Neuts (auto) Absolute Nucleated RBC Nucleated RBC % (auto) Smear Tech's Comments Smear Path Review PT INR APTT O2 Saturation ABG pH at Pt Temp ABG pCO2 at Pt Temp ABG pO2 at Pt Temp ABG HCO3 ABG Base Excess (Actual) VBG pH VBG pCO2 VBG pO2 VBG HCO3 VBG O2 Saturation VBG Base Excess Sodium 144 Potassium 3.5 Chloride 96 Carbon Dioxide 34 H Anion Gap 18 BUN 27 H Creatinine 0.62 Estim Creat Clear Calc 112.9 Estimated GFR > 60 POC Glucose 184 H 187 H Random Glucose 199 H Lactic Acid Lactic Acid F/U @ 2Hr Calcium 8.8 Phosphorus 3.5 Magnesium 1.8 Total Bilirubin Direct Bilirubin AST ALT Alkaline Phosphatase Total Creatine Kinase Troponin I High Sens C-Reactive Protein B-Natriuretic Peptide Total Protein Albumin Procalcitonin Urine Color Urine Appearance Urine pH Ur Specific [place] Urine Protein Urine Glucose (UA) Urine Ketones Urine Blood Urine Nitrite Ur Leukocyte Esterase Urine RBC Urine WBC Ur Squamous Epith Cells Ur Transition Epith Cell Urine Bacteria Hyaline Casts Stool Occult Blood Vancomycin Trough Random Vancomycin 15.6 Influenza Type A (PCR) Influenza Type B (PCR) RSV RNA Qual (PCR) SARS-CoV-2 RNA (RT-PCR) Blood Type Antibody Screen Crossmatch 11/10/24 11/10/24 11/10/24 00:14 05:30 05:31 WBC 15.3 H RBC 2.83 L Hgb 7.3 L Hct 24.3 L MCV 85.9 MCH 25.8 L MCHC 30.0 L RDW 17.3 H Plt Count 147 L D MPV 12.0 Immature Gran % (Auto) 0.6 H Neut % (Auto) 68.8 Lymph % (Auto) 21.2 [place] % (Auto) 5.5 Eos % (Auto) 3.4 Baso % (Auto) 0.5 Lymph # (Auto) 3.3 [place] # (Auto) 0.8 Eos # (Auto) 0.5 H Baso # (Auto) 0.1 Abs Immat Gran (auto) 0.10 H Absolute Neuts (auto) 10.6 H Absolute Nucleated RBC 0.020 H Nucleated RBC % (auto) 0.1 Smear Tech's Comments Smear Path Review PT INR APTT O2 Saturation ABG pH at Pt Temp ABG pCO2 at Pt Temp ABG pO2 at Pt Temp ABG HCO3 ABG Base Excess (Actual) VBG pH 7.52 H VBG pCO2 60 VBG pO2 38 VBG HCO3 50 H VBG O2 Saturation 55.0 VBG Base Excess 24.6 Sodium 144 Potassium 3.0 L Chloride 94 L Carbon Dioxide 37 H Anion Gap 16 BUN 28 H Creatinine 0.61 Estim Creat Clear Calc 114.8 Estimated GFR > 60 POC Glucose 179 H Random Glucose 199 H Lactic Acid Lactic Acid F/U @ 2Hr Calcium 8.3 L Phosphorus 3.5 Magnesium 1.8 Total Bilirubin Direct Bilirubin AST ALT Alkaline Phosphatase Total Creatine Kinase Troponin I High Sens C-Reactive Protein B-Natriuretic Peptide Total Protein Albumin 2.9 L Procalcitonin Urine Color Urine Appearance Urine pH Ur Specific [place] Urine Protein Urine Glucose (UA) Urine Ketones Urine Blood Urine Nitrite Ur Leukocyte Esterase Urine RBC Urine WBC Ur Squamous Epith Cells Ur Transition Epith Cell Urine Bacteria Hyaline Casts Stool Occult Blood Vancomycin Trough Random Vancomycin Influenza Type A (PCR) Influenza Type B (PCR) RSV RNA Qual (PCR) SARS-CoV-2 RNA (RT-PCR) Blood Type Antibody Screen Crossmatch 11/10/24 11/10/24 11/10/24 06:25 12:08 17:27 WBC RBC Hgb Hct MCV MCH MCHC RDW Plt Count MPV Immature Gran % (Auto) Neut % (Auto) Lymph % (Auto) [place] % (Auto) Eos % (Auto) Baso % (Auto) Lymph # (Auto) [place] # (Auto) Eos # (Auto) Baso # (Auto) Abs Immat Gran (auto) Absolute Neuts (auto) Absolute Nucleated RBC Nucleated RBC % (auto) Smear Tech's Comments Smear Path Review PT INR APTT O2 Saturation ABG pH at Pt Temp ABG pCO2 at Pt Temp ABG pO2 at Pt Temp ABG HCO3 ABG Base Excess (Actual) VBG pH VBG pCO2 VBG pO2 VBG HCO3 VBG O2 Saturation VBG Base Excess Sodium Potassium Chloride Carbon Dioxide Anion Gap BUN Creatinine Estim Creat Clear Calc Estimated GFR POC Glucose 204 H 163 H 169 H Random Glucose Lactic Acid Lactic Acid F/U @ 2Hr Calcium Phosphorus Magnesium Total Bilirubin Direct Bilirubin AST ALT Alkaline Phosphatase Total Creatine Kinase Troponin I High Sens C-Reactive Protein B-Natriuretic Peptide Total Protein Albumin Procalcitonin Urine Color Urine Appearance Urine pH Ur Specific [place] Urine Protein Urine Glucose (UA) Urine Ketones Urine Blood Urine Nitrite Ur Leukocyte Esterase Urine RBC Urine WBC Ur Squamous Epith Cells Ur Transition Epith Cell Urine Bacteria Hyaline Casts Stool Occult Blood Vancomycin Trough Random Vancomycin Influenza Type A (PCR) Influenza Type B (PCR) RSV RNA Qual (PCR) SARS-CoV-2 RNA (RT-PCR) Blood Type Antibody Screen Crossmatch 11/10/24 11/10/24 11/11/24 17:58 23:10 05:20 WBC 18.6 H RBC 2.44 L Hgb 6.3 L* Hct 21.5 L MCV 88.1 MCH 25.8 L MCHC 29.3 L RDW 18.0 H Plt Count 193 D MPV 12.0 Immature Gran % (Auto) 0.5 H Neut % (Auto) 61.0 Lymph % (Auto) 27.1 [place] % (Auto) 6.3 Eos % (Auto) 4.7 H Baso % (Auto) 0.4 Lymph # (Auto) 5.1 H [place] # (Auto) 1.2 Eos # (Auto) 0.9 H Baso # (Auto) 0.1 Abs Immat Gran (auto) 0.10 H Absolute Neuts (auto) 11.4 H Absolute Nucleated RBC 0.020 H Nucleated RBC % (auto) 0.1 Smear Tech's Comments VERIFIED Smear Path Review SEE NOTE PT INR APTT O2 Saturation ABG pH at Pt Temp ABG pCO2 at Pt Temp ABG pO2 at Pt Temp ABG HCO3 ABG Base Excess (Actual) VBG pH VBG pCO2 VBG pO2 VBG HCO3 VBG O2 Saturation VBG Base Excess Sodium 145 145 Potassium 2.9 L* 3.7 D Chloride 97 100 Carbon Dioxide 39 H 36 H Anion Gap 12 13 BUN 35 H 39 H Creatinine 0.67 0.64 Estim Creat Clear Calc 104.5 109.4 Estimated GFR > 60 > 60 POC Glucose 189 H Random Glucose 191 H 210 H Lactic Acid Lactic Acid F/U @ 2Hr Calcium 8.6 8.1 L Phosphorus 3.5 3.5 Magnesium 2.1 2.0 Total Bilirubin Direct Bilirubin AST ALT Alkaline Phosphatase Total Creatine Kinase Troponin I High Sens C-Reactive Protein B-Natriuretic Peptide Total Protein Albumin 2.7 L Procalcitonin Urine Color Urine Appearance Urine pH Ur Specific [place] Urine Protein Urine Glucose (UA) Urine Ketones Urine Blood Urine Nitrite Ur Leukocyte Esterase Urine RBC Urine WBC Ur Squamous Epith Cells Ur Transition Epith Cell Urine Bacteria Hyaline Casts Stool Occult Blood Vancomycin Trough Random Vancomycin Influenza Type A (PCR) Influenza Type B (PCR) RSV RNA Qual (PCR) SARS-CoV-2 RNA (RT-PCR) Blood Type Antibody Screen Crossmatch 11/11/24 11/11/24 11/11/24 05:26 06:02 06:23 WBC RBC Hgb Hct MCV MCH MCHC RDW Plt Count MPV Immature Gran % (Auto) Neut % (Auto) Lymph % (Auto) [place] % (Auto) Eos % (Auto) Baso % (Auto) Lymph # (Auto) [place] # (Auto) Eos # (Auto) Baso # (Auto) Abs Immat Gran (auto) Absolute Neuts (auto) Absolute Nucleated RBC Nucleated RBC % (auto) Smear Tech's Comments Smear Path Review PT INR APTT O2 Saturation ABG pH at Pt Temp ABG pCO2 at Pt Temp ABG pO2 at Pt Temp ABG HCO3 ABG Base Excess (Actual) VBG pH 7.55 H VBG pCO2 52 VBG pO2 33 VBG HCO3 46 H VBG O2 Saturation 48.0 VBG Base Excess 21.6 Sodium Potassium Chloride Carbon Dioxide Anion Gap BUN Creatinine Estim Creat Clear Calc Estimated GFR POC Glucose Random Glucose Lactic Acid Lactic Acid F/U @ 2Hr Calcium Phosphorus Magnesium Total Bilirubin Direct Bilirubin AST ALT Alkaline Phosphatase Total Creatine Kinase Troponin I High Sens C-Reactive Protein B-Natriuretic Peptide Total Protein Albumin Procalcitonin Urine Color Urine Appearance Urine pH Ur Specific [place] Urine Protein Urine Glucose (UA) Urine Ketones Urine Blood Urine Nitrite Ur Leukocyte Esterase Urine RBC Urine WBC Ur Squamous Epith Cells Ur Transition Epith Cell Urine Bacteria Hyaline Casts Stool Occult Blood Vancomycin Trough Random Vancomycin Influenza Type A (PCR) Influenza Type B (PCR) RSV RNA Qual (PCR) SARS-CoV-2 RNA (RT-PCR) Blood Type A Negative Antibody Screen NEGATIVE Crossmatch See Detail See Detail 11/11/24 11/11/24 11/11/24 07:11 09:55 11:06 WBC 18.7 H RBC 2.70 L Hgb 7.3 L Hct 23.2 L MCV 85.9 MCH 27.0 MCHC 31.5 RDW 16.0 Plt Count 172 MPV 11.3 Immature Gran % (Auto) 0.7 H Neut % (Auto) 70.4 Lymph % (Auto) 19.6 L [place] % (Auto) 7.4 Eos % (Auto) 1.5 Baso % (Auto) 0.4 Lymph # (Auto) 3.7 [place] # (Auto) 1.4 H Eos # (Auto) 0.3 Baso # (Auto) 0.1 Abs Immat Gran (auto) 0.13 H Absolute Neuts (auto) 13.2 H Absolute Nucleated RBC 0.040 H Nucleated RBC % (auto) 0.2 Smear Tech's Comments Smear Path Review PT INR APTT O2 Saturation ABG pH at Pt Temp ABG pCO2 at Pt Temp ABG pO2 at Pt Temp ABG HCO3 ABG Base Excess (Actual) VBG pH VBG pCO2 VBG pO2 VBG HCO3 VBG O2 Saturation VBG Base Excess Sodium 149 H Potassium 3.0 L Chloride 99 Carbon Dioxide 38 H Anion Gap 15 BUN 39 H Creatinine 0.66 Estim Creat Clear Calc 106.1 Estimated GFR > 60 POC Glucose 248 H Random Glucose 161 H Lactic Acid Lactic Acid F/U @ 2Hr Calcium 9.8 D Phosphorus 4.9 H Magnesium 2.1 Total Bilirubin Direct Bilirubin AST ALT Alkaline Phosphatase Total Creatine Kinase 22 L Troponin I High Sens C-Reactive Protein B-Natriuretic Peptide Total Protein Albumin Procalcitonin Urine Color Urine Appearance Urine pH Ur Specific [place] Urine Protein Urine Glucose (UA) Urine Ketones Urine Blood Urine Nitrite Ur Leukocyte Esterase Urine RBC Urine WBC Ur Squamous Epith Cells Ur Transition Epith Cell Urine Bacteria Hyaline Casts Stool Occult Blood Vancomycin Trough Random Vancomycin Influenza Type A (PCR) Influenza Type B (PCR) RSV RNA Qual (PCR) SARS-CoV-2 RNA (RT-PCR) Blood Type Antibody Screen Crossmatch 11/11/24 11/11/24 11/11/24 12:35 13:32 17:59 WBC 16.5 H RBC 3.24 L Hgb 9.5 L D Hct 28.0 L D MCV 86.4 MCH 29.3 MCHC 33.9 RDW 16.1 H Plt Count 163 MPV 11.5 Immature Gran % (Auto) 0.5 H Neut % (Auto) 63.8 Lymph % (Auto) 24.1 [place] % (Auto) 6.5 Eos % (Auto) 4.7 H Baso % (Auto) 0.4 Lymph # (Auto) 4.0 [place] # (Auto) 1.1 Eos # (Auto) 0.8 H Baso # (Auto) 0.1 Abs Immat Gran (auto) 0.09 H Absolute Neuts (auto) 10.6 H Absolute Nucleated RBC 0.030 H Nucleated RBC % (auto) 0.2 Smear Tech's Comments Smear Path Review PT INR APTT O2 Saturation ABG pH at Pt Temp ABG pCO2 at Pt Temp ABG pO2 at Pt Temp ABG HCO3 ABG Base Excess (Actual) VBG pH VBG pCO2 VBG pO2 VBG HCO3 VBG O2 Saturation VBG Base Excess Sodium 149 H Potassium 3.2 L Chloride 101 Carbon Dioxide 35 H Anion Gap 16 BUN 37 H Creatinine 0.62 Estim Creat Clear Calc 113.0 Estimated GFR > 60 POC Glucose 158 H Random Glucose 133 H Lactic Acid Lactic Acid F/U @ 2Hr Calcium 10.3 H Phosphorus 4.5 Magnesium 2.2 Total Bilirubin Direct Bilirubin AST ALT Alkaline Phosphatase Total Creatine Kinase Troponin I High Sens C-Reactive Protein B-Natriuretic Peptide Total Protein Albumin Procalcitonin Urine Color Urine Appearance Urine pH Ur Specific [place] Urine Protein Urine Glucose (UA) Urine Ketones Urine Blood Urine Nitrite Ur Leukocyte Esterase Urine RBC Urine WBC Ur Squamous Epith Cells Ur Transition Epith Cell Urine Bacteria Hyaline Casts Stool Occult Blood NEGATIVE Vancomycin Trough Random Vancomycin 21.3 H Influenza Type A (PCR) Influenza Type B (PCR) RSV RNA Qual (PCR) SARS-CoV-2 RNA (RT-PCR) Blood Type Antibody Screen Crossmatch 11/11/24 11/12/24 11/12/24 18:12 00:14 00:35 WBC 16.1 H RBC 3.13 L Hgb 9.1 L Hct 27.5 L MCV 87.9 MCH 29.1 MCHC 33.1 RDW 16.2 H Plt Count 172 MPV 11.5 Immature Gran % (Auto) 0.6 H Neut % (Auto) 64.4 Lymph % (Auto) 21.1 [place] % (Auto) 6.9 Eos % (Auto) 6.5 H Baso % (Auto) 0.5 Lymph # (Auto) 3.4 [place] # (Auto) 1.1 Eos # (Auto) 1.0 H Baso # (Auto) 0.1 Abs Immat Gran (auto) 0.09 H Absolute Neuts (auto) 10.4 H Absolute Nucleated RBC 0.030 H Nucleated RBC % (auto) 0.2 Smear Tech's Comments Smear Path Review PT INR APTT O2 Saturation ABG pH at Pt Temp ABG pCO2 at Pt Temp ABG pO2 at Pt Temp ABG HCO3 ABG Base Excess (Actual) VBG pH VBG pCO2 VBG pO2 VBG HCO3 VBG O2 Saturation VBG Base Excess Sodium 148 H Potassium 3.4 Chloride 105 Carbon Dioxide 33 H Anion Gap 13 BUN 33 H Creatinine 0.63 Estim Creat Clear Calc 111.2 Estimated GFR > 60 POC Glucose 135 H 157 H Random Glucose 156 H Lactic Acid Lactic Acid F/U @ 2Hr Calcium 9.4 D Phosphorus 3.6 Magnesium 2.2 Total Bilirubin Direct Bilirubin AST ALT Alkaline Phosphatase Total Creatine Kinase Troponin I High Sens C-Reactive Protein B-Natriuretic Peptide Total Protein Albumin Procalcitonin Urine Color Urine Appearance Urine pH Ur Specific [place] Urine Protein Urine Glucose (UA) Urine Ketones Urine Blood Urine Nitrite Ur Leukocyte Esterase Urine RBC Urine WBC Ur Squamous Epith Cells Ur Transition Epith Cell Urine Bacteria Hyaline Casts Stool Occult Blood Vancomycin Trough Random Vancomycin Influenza Type A (PCR) Influenza Type B (PCR) RSV RNA Qual (PCR) SARS-CoV-2 RNA (RT-PCR) Blood Type Antibody Screen Crossmatch 11/12/24 11/12/24 11/12/24 05:53 05:55 05:58 WBC 16.2 H RBC 3.22 L Hgb 9.3 L Hct 28.5 L MCV 88.5 MCH 28.9 MCHC 32.6 RDW 16.6 H Plt Count 183 MPV 11.5 Immature Gran % (Auto) 0.6 H Neut % (Auto) 65.7 Lymph % (Auto) 20.5 [place] % (Auto) 6.1 Eos % (Auto) 6.7 H Baso % (Auto) 0.4 Lymph # (Auto) 3.3 [place] # (Auto) 1.0 Eos # (Auto) 1.1 H Baso # (Auto) 0.1 Abs Immat Gran (auto) 0.09 H Absolute Neuts (auto) 10.7 H Absolute Nucleated RBC 0.050 H Nucleated RBC % (auto) 0.3 H Smear Tech's Comments Smear Path Review PT INR APTT O2 Saturation ABG pH at Pt Temp ABG pCO2 at Pt Temp ABG pO2 at Pt Temp ABG HCO3 ABG Base Excess (Actual) VBG pH 7.54 H VBG pCO2 46 VBG pO2 46 VBG HCO3 40 H VBG O2 Saturation 78.0 VBG Base Excess 16.4 Sodium 151 H Potassium 3.2 L Chloride 105 Carbon Dioxide 33 H Anion Gap 16 BUN 34 H Creatinine 0.58 Estim Creat Clear Calc 120.8 Estimated GFR > 60 POC Glucose 143 H Random Glucose 140 H Lactic Acid Lactic Acid F/U @ 2Hr Calcium 9.3 Phosphorus 3.6 Magnesium 2.2 Total Bilirubin Direct Bilirubin AST ALT Alkaline Phosphatase Total Creatine Kinase Troponin I High Sens C-Reactive Protein B-Natriuretic Peptide Total Protein Albumin 3.1 L Procalcitonin Urine Color Urine Appearance Urine pH Ur Specific [place] Urine Protein Urine Glucose (UA) Urine Ketones Urine Blood Urine Nitrite Ur Leukocyte Esterase Urine RBC Urine WBC Ur Squamous Epith Cells Ur Transition Epith Cell Urine Bacteria Hyaline Casts Stool Occult Blood Vancomycin Trough Random Vancomycin 19.1 Influenza Type A (PCR) Influenza Type B (PCR) RSV RNA Qual (PCR) SARS-CoV-2 RNA (RT-PCR) Blood Type Antibody Screen Crossmatch 11/12/24 11/12/24 11/12/24 11:41 17:31 18:03 WBC RBC Hgb Hct MCV MCH MCHC RDW Plt Count MPV Immature Gran % (Auto) Neut % (Auto) Lymph % (Auto) [place] % (Auto) Eos % (Auto) Baso % (Auto) Lymph # (Auto) [place] # (Auto) Eos # (Auto) Baso # (Auto) Abs Immat Gran (auto) Absolute Neuts (auto) Absolute Nucleated RBC Nucleated RBC % (auto) Smear Tech's Comments Smear Path Review PT INR APTT O2 Saturation ABG pH at Pt Temp ABG pCO2 at Pt Temp ABG pO2 at Pt Temp ABG HCO3 ABG Base Excess (Actual) VBG pH VBG pCO2 VBG pO2 VBG HCO3 VBG O2 Saturation VBG Base Excess Sodium 152 H Potassium 3.1 L Chloride 108 Carbon Dioxide 34 H Anion Gap 13 BUN 36 H Creatinine 0.61 Estim Creat Clear Calc 117.2 Estimated GFR > 60 POC Glucose 145 H 158 H Random Glucose 164 H Lactic Acid Lactic Acid F/U @ 2Hr Calcium 8.9 Phosphorus 3.1 Magnesium 2.2 Total Bilirubin Direct Bilirubin AST ALT Alkaline Phosphatase Total Creatine Kinase Troponin I High Sens C-Reactive Protein B-Natriuretic Peptide Total Protein Albumin Procalcitonin Urine Color Urine Appearance Urine pH Ur Specific [place] Urine Protein Urine Glucose (UA) Urine Ketones Urine Blood Urine Nitrite Ur Leukocyte Esterase Urine RBC Urine WBC Ur Squamous Epith Cells Ur Transition Epith Cell Urine Bacteria Hyaline Casts Stool Occult Blood Vancomycin Trough Random Vancomycin Influenza Type A (PCR) Influenza Type B (PCR) RSV RNA Qual (PCR) SARS-CoV-2 RNA (RT-PCR) Blood Type Antibody Screen Crossmatch 11/12/24 11/13/24 11/13/24 23:49 04:34 04:39 WBC 15.4 H RBC 2.96 L Hgb 8.6 L Hct 27.3 L MCV 92.2 MCH 29.1 MCHC 31.5 RDW 17.7 H Plt Count 196 MPV 11.6 Immature Gran % (Auto) 0.8 H Neut % (Auto) 61.2 Lymph % (Auto) 25.9 [place] % (Auto) 7.3 Eos % (Auto) 4.4 H Baso % (Auto) 0.4 Lymph # (Auto) 4.0 [place] # (Auto) 1.1 Eos # (Auto) 0.7 H Baso # (Auto) 0.1 Abs Immat Gran (auto) 0.12 H Absolute Neuts (auto) 9.4 H Absolute Nucleated RBC 0.040 H Nucleated RBC % (auto) 0.3 H Smear Tech's Comments Smear Path Review PT INR APTT O2 Saturation ABG pH at Pt Temp ABG pCO2 at Pt Temp ABG pO2 at Pt Temp ABG HCO3 ABG Base Excess (Actual) VBG pH 7.49 H VBG pCO2 52 VBG pO2 43 VBG HCO3 40 H VBG O2 Saturation 72.0 VBG Base Excess 15.2 Sodium 152 H Potassium 4.1 D Chloride 110 H Carbon Dioxide 32 H Anion Gap 14 BUN 33 H Creatinine 0.65 Estim Creat Clear Calc 103.4 Estimated GFR > 60 POC Glucose 167 H Random Glucose 164 H Lactic Acid Lactic Acid F/U @ 2Hr Calcium 8.7 Phosphorus 2.7 Magnesium 2.4 Total Bilirubin Direct Bilirubin AST ALT Alkaline Phosphatase Total Creatine Kinase Troponin I High Sens C-Reactive Protein B-Natriuretic Peptide Total Protein Albumin 2.9 L Procalcitonin Urine Color Urine Appearance Urine pH Ur Specific [place] Urine Protein Urine Glucose (UA) Urine Ketones Urine Blood Urine Nitrite Ur Leukocyte Esterase Urine RBC Urine WBC Ur Squamous Epith Cells Ur Transition Epith Cell Urine Bacteria Hyaline Casts Stool Occult Blood Vancomycin Trough Random Vancomycin Influenza Type A (PCR) Influenza Type B (PCR) RSV RNA Qual (PCR) SARS-CoV-2 RNA (RT-PCR) Blood Type Antibody Screen Crossmatch 11/13/24 11/13/24 11/13/24 11:06 17:34 18:04 WBC RBC Hgb Hct MCV MCH MCHC RDW Plt Count MPV Immature Gran % (Auto) Neut % (Auto) Lymph % (Auto) [place] % (Auto) Eos % (Auto) Baso % (Auto) Lymph # (Auto) [place] # (Auto) Eos # (Auto) Baso # (Auto) Abs Immat Gran (auto) Absolute Neuts (auto) Absolute Nucleated RBC Nucleated RBC % (auto) Smear Tech's Comments Smear Path Review PT INR APTT O2 Saturation ABG pH at Pt Temp ABG pCO2 at Pt Temp ABG pO2 at Pt Temp ABG HCO3 ABG Base Excess (Actual) VBG pH VBG pCO2 VBG pO2 VBG HCO3 VBG O2 Saturation VBG Base Excess Sodium Potassium Chloride Carbon Dioxide Anion Gap BUN Creatinine Estim Creat Clear Calc Estimated GFR POC Glucose 158 H 202 H Random Glucose Lactic Acid Lactic Acid F/U @ 2Hr Calcium Phosphorus Magnesium Total Bilirubin Direct Bilirubin AST ALT Alkaline Phosphatase Total Creatine Kinase Troponin I High Sens C-Reactive Protein B-Natriuretic Peptide Total Protein Albumin Procalcitonin Urine Color Urine Appearance Urine pH Ur Specific [place] Urine Protein Urine Glucose (UA) Urine Ketones Urine Blood Urine Nitrite Ur Leukocyte Esterase Urine RBC Urine WBC Ur Squamous Epith Cells Ur Transition Epith Cell Urine Bacteria Hyaline Casts Stool Occult Blood Vancomycin Trough Random Vancomycin 11.8 L Influenza Type A (PCR) Influenza Type B (PCR) RSV RNA Qual (PCR) SARS-CoV-2 RNA (RT-PCR) Blood Type Antibody Screen Crossmatch 11/13/24 11/13/24 11/14/24 19:31 23:52 05:32 WBC 14.4 H 14.8 H RBC 2.88 L 2.90 L Hgb 8.5 L 8.5 L Hct 27.3 L 27.6 L MCV 94.8 95.2 MCH 29.5 29.3 MCHC 31.1 30.8 L RDW 18.5 H 18.8 H Plt Count 204 224 MPV 11.2 11.4 Immature Gran % (Auto) 1.1 H 1.2 H Neut % (Auto) 56.1 62.2 Lymph % (Auto) 28.5 22.4 [place] % (Auto) 7.8 6.4 Eos % (Auto) 6.2 H 7.4 H Baso % (Auto) 0.3 0.4 Lymph # (Auto) 4.1 3.3 [place] # (Auto) 1.1 1.0 Eos # (Auto) 0.9 H 1.1 H Baso # (Auto) 0.1 0.1 Abs Immat Gran (auto) 0.16 H 0.18 H Absolute Neuts (auto) 8.1 9.2 H Absolute Nucleated RBC 0.060 H 0.060 H Nucleated RBC % (auto) 0.4 H 0.4 H Smear Tech's Comments Smear Path Review PT INR APTT O2 Saturation ABG pH at Pt Temp ABG pCO2 at Pt Temp ABG pO2 at Pt Temp ABG HCO3 ABG Base Excess (Actual) VBG pH VBG pCO2 VBG pO2 VBG HCO3 VBG O2 Saturation VBG Base Excess Sodium 153 H 150 H Potassium 3.7 4.0 Chloride 110 H 110 H Carbon Dioxide 32 H 31 H Anion Gap 15 13 BUN 32 H 30 H Creatinine 0.63 0.59 Estim Creat Clear Calc 106.6 118.1 Estimated GFR > 60 > 60 POC Glucose 181 H 179 H Random Glucose 183 H 194 H Lactic Acid Lactic Acid F/U @ 2Hr Calcium 8.6 8.2 L Phosphorus 2.6 L 2.5 L Magnesium 2.5 2.4 Total Bilirubin Direct Bilirubin AST ALT Alkaline Phosphatase Total Creatine Kinase Troponin I High Sens C-Reactive Protein B-Natriuretic Peptide Total Protein Albumin 2.7 L Procalcitonin Urine Color Urine Appearance Urine pH Ur Specific [place] Urine Protein Urine Glucose (UA) Urine Ketones Urine Blood Urine Nitrite Ur Leukocyte Esterase Urine RBC Urine WBC Ur Squamous Epith Cells Ur Transition Epith Cell Urine Bacteria Hyaline Casts Stool Occult Blood Vancomycin Trough Random Vancomycin Influenza Type A (PCR) Influenza Type B (PCR) RSV RNA Qual (PCR) SARS-CoV-2 RNA (RT-PCR) Blood Type Antibody Screen Crossmatch 11/14/24 11/14/24 11/14/24 05:33 11:15 17:22 WBC RBC Hgb Hct MCV MCH MCHC RDW Plt Count MPV Immature Gran % (Auto) Neut % (Auto) Lymph % (Auto) [place] % (Auto) Eos % (Auto) Baso % (Auto) Lymph # (Auto) [place] # (Auto) Eos # (Auto) Baso # (Auto) Abs Immat Gran (auto) Absolute Neuts (auto) Absolute Nucleated RBC Nucleated RBC % (auto) Smear Tech's Comments Smear Path Review PT INR APTT O2 Saturation ABG pH at Pt Temp ABG pCO2 at Pt Temp ABG pO2 at Pt Temp ABG HCO3 ABG Base Excess (Actual) VBG pH 7.48 H VBG pCO2 54 VBG pO2 43 VBG HCO3 40 H VBG O2 Saturation 71.0 VBG Base Excess 15.6 Sodium Potassium Chloride Carbon Dioxide Anion Gap BUN Creatinine Estim Creat Clear Calc Estimated GFR POC Glucose 208 H 189 H Random Glucose Lactic Acid Lactic Acid F/U @ 2Hr Calcium Phosphorus Magnesium Total Bilirubin Direct Bilirubin AST ALT Alkaline Phosphatase Total Creatine Kinase Troponin I High Sens C-Reactive Protein B-Natriuretic Peptide Total Protein Albumin Procalcitonin Urine Color Urine Appearance Urine pH Ur Specific [place] Urine Protein Urine Glucose (UA) Urine Ketones Urine Blood Urine Nitrite Ur Leukocyte Esterase Urine RBC Urine WBC Ur Squamous Epith Cells Ur Transition Epith Cell Urine Bacteria Hyaline Casts Stool Occult Blood Vancomycin Trough Random Vancomycin Influenza Type A (PCR) Influenza Type B (PCR) RSV RNA Qual (PCR) SARS-CoV-2 RNA (RT-PCR) Blood Type Antibody Screen Crossmatch 11/14/24 11/15/24 11/15/24 19:21 00:01 05:24 WBC 14.0 H 13.1 H RBC 2.76 L 2.67 L Hgb 8.2 L 7.6 L Hct 26.6 L 26.1 L MCV 96.4 97.8 MCH 29.7 28.5 MCHC 30.8 L 29.1 L RDW 19.3 H 19.4 H Plt Count 210 206 MPV 11.1 11.2 Immature Gran % (Auto) 1.3 H Neut % (Auto) 56.5 Lymph % (Auto) 27.7 [place] % (Auto) 6.2 Eos % (Auto) 7.8 H Baso % (Auto) 0.5 Lymph # (Auto) 3.6 [place] # (Auto) 0.8 Eos # (Auto) 1.0 H Baso # (Auto) 0.1 Abs Immat Gran (auto) 0.17 H Absolute Neuts (auto) 7.4 Absolute Nucleated RBC 0.030 H 0.030 H Nucleated RBC % (auto) 0.2 0.2 Smear Tech's Comments Smear Path Review PT 13.0 H D INR 1.1 APTT O2 Saturation ABG pH at Pt Temp ABG pCO2 at Pt Temp ABG pO2 at Pt Temp ABG HCO3 ABG Base Excess (Actual) VBG pH VBG pCO2 VBG pO2 VBG HCO3 VBG O2 Saturation VBG Base Excess Sodium 149 H Potassium 4.0 Chloride 109 H Carbon Dioxide 33 H Anion Gap 11 L BUN 26 H Creatinine 0.53 Estim Creat Clear Calc 131.5 Estimated GFR > 60 POC Glucose 197 H Random Glucose 176 H Lactic Acid Lactic Acid F/U @ 2Hr Calcium 8.3 L Phosphorus 2.9 Magnesium 2.4 Total Bilirubin Direct Bilirubin AST ALT Alkaline Phosphatase Total Creatine Kinase Troponin I High Sens C-Reactive Protein B-Natriuretic Peptide Total Protein Albumin Procalcitonin Urine Color Urine Appearance Urine pH Ur Specific [place] Urine Protein Urine Glucose (UA) Urine Ketones Urine Blood Urine Nitrite Ur Leukocyte Esterase Urine RBC Urine WBC Ur Squamous Epith Cells Ur Transition Epith Cell Urine Bacteria Hyaline Casts Stool Occult Blood Vancomycin Trough Random Vancomycin Influenza Type A (PCR) Influenza Type B (PCR) RSV RNA Qual (PCR) SARS-CoV-2 RNA (RT-PCR) Blood Type Antibody Screen Crossmatch 11/15/24 11/15/24 11/15/24 05:30 05:36 11:05 WBC RBC Hgb Hct MCV MCH MCHC RDW Plt Count MPV Immature Gran % (Auto) Neut % (Auto) Lymph % (Auto) [place] % (Auto) Eos % (Auto) Baso % (Auto) Lymph # (Auto) [place] # (Auto) Eos # (Auto) Baso # (Auto) Abs Immat Gran (auto) Absolute Neuts (auto) Absolute Nucleated RBC Nucleated RBC % (auto) Smear Tech's Comments Smear Path Review PT INR APTT O2 Saturation ABG pH at Pt Temp ABG pCO2 at Pt Temp ABG pO2 at Pt Temp ABG HCO3 ABG Base Excess (Actual) VBG pH 7.52 H VBG pCO2 48 VBG pO2 44 VBG HCO3 39 H VBG O2 Saturation 77.0 VBG Base Excess 15.2 Sodium 148 H Potassium 3.6 Chloride 109 H Carbon Dioxide 32 H Anion Gap 11 L BUN 23 H Creatinine 0.58 Estim Creat Clear Calc 118.5 Estimated GFR > 60 POC Glucose 159 H Random Glucose 169 H Lactic Acid Lactic Acid F/U @ 2Hr Calcium 8.4 Phosphorus 2.6 L Magnesium 2.3 Total Bilirubin 1.4 H Direct Bilirubin AST 20 ALT 6 Alkaline Phosphatase 151 H Total Creatine Kinase Troponin I High Sens C-Reactive Protein B-Natriuretic Peptide Total Protein 6.6 Albumin 3.3 L Procalcitonin Urine Color Urine Appearance Urine pH Ur Specific [place] Urine Protein Urine Glucose (UA) Urine Ketones Urine Blood Urine Nitrite Ur Leukocyte Esterase Urine RBC Urine WBC Ur Squamous Epith Cells Ur Transition Epith Cell Urine Bacteria Hyaline Casts Stool Occult Blood Vancomycin Trough Random Vancomycin Influenza Type A (PCR) Influenza Type B (PCR) RSV RNA Qual (PCR) SARS-CoV-2 RNA (RT-PCR) Blood Type Antibody Screen Crossmatch Narrative Narrative: ETT in situ. Long neck. Should be uncomplicated tracheostomy. Airway Mallampati Class: Patient Non-Cooperative Heart: See vital signs above Lungs: See ventilator settings above. No autopeep. Assessment and Plan Assessment Anesthesia Assessment: Anesthesia Plan Discussed and Chart Reviewed Final Anesthetic Review Family History of Problems with Anesthesia: No History of Problems with Anesthesia: No NPO: Yes ASA Class: IV Final Preanesthetic Review: No Changes in Pt Med Stat, Meds/Allgs Chart Reviewed, Consent Obtained/Reviewed and Anes Risks/Benef Reviewed Patient Risk: High Procedure Risk: Intermediate Anesthetic Plan Anesthetic Plan: GA and Agree w/ Assess. and Plan Disposition: Inp. Admit - ICU
--- NOTE | 2024-11-15 14:08 | MHC.CM.PN ---
Pt is presently in the OR undergoing a peg/trach placement. Pt has been referred to [facility] for LTACH placement once medically stable. CM to update VIBRA on 11/16 w/Op notes
--- NOTE | 2024-11-15 14:34 | P.OP_ITS ---
Operative Note Operative Note Date of Service: 11/15/24 Narrative: Preop diagnosis: Acute on chronic respiratory failure Postop diagnosis: The same Procedure: PEG tube placement Surgeon: Augustus Martinez MD special education teaching assistant: CONNIE Block The patient is a 79-year-old male with acute and chronic renal failure, with need for persistent mechanical ventilation, here for PEG tube placement The consent was provided by his son Jose. He understood the technique of the planned procedure as well as the risks, benefits, and alternatives. A tracheostomy tube was placed earlier by Dr. Solorzano . The patient was placed in a reverse Trendelenburg position. The Olympus gastr oscope was introduced through the mouth into the oropharynx. The vocal cords were visualized. The esophageal slit was seen posterior to this. The esophageal slit was intubated. The scope was advanced with the entire length of the esophagus all with the stomach. Transillumination was easily seen on the epigastric area. Also, indentation on the anterior stomach wall was seen with a pressure using an index finger on the same area on the abdominal wall. This area blood loss. all the way to the stomach lumen. The needle was removed. The guidewire was inserted through the catheter and was he was with a snare. We pulled the guidewire all the way out through the oral cavity. The PEG tube was looped around this guidewire. The guidewire was then pulled back along with the PEG tube until this felt snug. I reinserted the gastroscope into the oral cavity. The inner bolster was seen. There was no bleeding. There were no lesions seen. The scope was then withdrawn completely. The external bolster was positioned to make this snug on the abdominal wall. Dressings were applied. The procedure was completed. The patient tolerated the procedure well. There were no immediate comp lications. The patient was then transferred back to the ICU with stable vital signs. There was minimal blood loss.
[2024-11-15 18:10] LABS: Glucose, Whole Blood 150 mg/dL (60-115)
[2024-11-15] MEDS: Norepinephrine Bitartrate/D5W 8 MG/250 ML PLAST..BAG 10.83 MG IVCONT (18:10)
--- NOTE | 2024-11-15 18:32 | PC.NURSE ---
Sedated/Vented, on? propofol gtt,. Opens eyes occasionally, does not track, does not follow commands, Moves upper extremities weakly. (passive ROM performed).? S/P? Peg/ Trach placement today 11/15.? A fib, HR, on Levophed gtt - see MAR, MAP goal >65.? Post left femoral hematoma evacuation 11/11. Dressing CDI,? + pedal pulses BL.? Kelly in place patent/draining. LBM 11/14, soft abdomen, + bowel sounds, POC q 6HRS. Impaired skin integrity - see skin assessment (repositioning maintained)? RIJ TLC,? peripheral IV.
[2024-11-15 23:21] LABS: Glucose, Whole Blood 120 mg/dL (60-115)
--- NOTE | 2024-11-15 23:50 | P.OP_ITS ---
Operative Note Operative Note Date of Service: 11/15/24 Narrative: Preoperative diagnosis: []Vent depedence Postop diagnosis: []same Procedure []open tracheostomy Surgeon: []shanita Supervisory Air Intercept Controller: []Desi Martinez Type of Anesthesia: []Gen Indication for surgery: []Vent dependent Findings: []Patent was brought to the OR ,intubated, placed on operative table in supine position, after an adequate level of general anesthesia was induced, shoulder roll was placed, and the patient's anterior chest and neck were prepped and draped in usual sterile fashion. Patient had evaluation preoperatively by respiratory regarding trach size; # 8. Shiley was chosen. A transverse incision was made a proximally 1 fingerbreadth above the sternal notch after infiltration with 1% lidocaine, and carried down through skin, subcutaneous tissue, and cervical fascia. Linea cervicalis was opened and strap muscle was retracted laterally. Isthmus of thyroid was transected using Bovie. Trachea was identified. Coordinated with the anesthesia guarding endotracheal tube removal, a transverse incision was made between the 2nd and 3rd tracheal rings and dilated. Concurrent with ETT removal just proximal to the tracheotomy, 8. Shiley was advanced into distal trachea. This was connected to the circuit with end-tidal CO2 registered, good O2 saturation, and chest wall movement. Wound was irrigated, secured hemostasis, and closed in the following manner; skin incision was reapproximated using interrupted inverted dermal 3-0 Vicryl sutures. Tracheostomy was then secured to the skin using interrupted 2-0 silk sutures. This was then followed by Velcro strap. Sponge, needle, and instrument counts reported correct. Patient tolerated the procedure well. EBL minimal. Patient is now sequentially having a PEG tube placement per .
[2024-11-16] VITALS (37 sets, daily range): BP systolic 81–124; BP diastolic 38–64; PULSE 71–811; RESP 13–20; TEMP 35–38.5; O2SAT 92–100; BMI 30.4
[2024-11-16] MEDS: Albumin Human 25 % 100 ML IV (02:01)
[2024-11-16] MEDS: propofoL 1,000 MG/100 ML VIAL 12.01 MG IVCONT (03:58)
[2024-11-16] MEDS: Pantoprazole Sodium 40 MG/10 ML VIAL IVPUSH (05:04)
[2024-11-16] MEDS: Acetaminophen 1,000 MG/100 ML PIGGYBACK 400 MG IV (05:05)
[2024-11-16 05:30] LABS: VBG Base Excess 13.4 mmol/L; VBG HCO3 37 mmol/L (22-26); VBG pCO2 46 mmHg; VBG pH 7.51 (7.32-7.43); VBG pO2 50 mmHg
[2024-11-16 05:32] LABS: Venous Blood Gas Refer to POC result
[2024-11-16 05:56] LABS: MANUAL DIFF FLAG NO
[2024-11-16] MEDS: Meropenem 1 GM VIAL IVPUSH ×3 (06:02→23:39)
[2024-11-16 06:06] LABS: Basophils Absolute Auto 0.1 X10*3/uL (0.0-0.2); Basophils Percent Auto 0.5 % (0-2); Eosinophils Absolute Auto 0.8 X10*3/uL (0.0-0.4); Eosinophils Percent Auto 6.8 % (0-4); Hematocrit 24.5 % (42.0-52.0); Hemoglobin 7.5 g/dl (14.0-18.0); Imm Gran Abs Auto 0.18 X10*3/uL (0.00-0.03); Imm Gran Pct Auto 1.6 % (0.0-0.4); Lymphocytes Absolute Auto 2.8 X10*3/uL (1.2-4.9); Lymphocytes Percent Auto 25.3 % (20-40); Mean Corpuscular HGB Conc 30.6 g/dl (31.0-36.0); Mean Corpuscular Hemoglobin 29.8 pg (27.0-33.0); Mean Corpuscular Volume 97.2 fL (80.0-98.0); Mean Platelet Volume 11.3 fL (9.4-12.4); Monocytes Absolute Auto 0.6 X10*3/uL (0.1-1.2); Monocytes Percent Auto 5.2 % (2-11); Neutrophils Absolute Auto 6.8 x10*3/uL (2.0-8.3); Neutrophils Percent Auto 60.6 % (45-73); Platelet Count 205 X10*3/uL (160-400); Red Blood Count 2.52 X10*6/uL (4.60-5.80); Red Cell Distribution Width 19.4 % (11.0-16.0); White Blood Count 11.2 X10*3/uL (4.8-10.8)
[2024-11-16 06:12] LABS: Albumin Level 3.6 g/dL (3.5-5.0); Anion Gap 12 (12-20); Blood Urea Nitrogen 18 mg/dL (9-16); Calcium 8.7 mg/dL (8.4-10.2); Carbon Dioxide 31 mmol/L (22-29); Chloride 109 mmol/L (96-108); Creatinine Clr Calc Pharmacy 134.7; Estimated Glomerular Filt Rate > 60; Glucose Random 130 mg/dL (60-115); Magnesium 2.4 mg/dL (1.6-2.6); Phosphorus 2.3 mg/dL (2.7-4.5); Potassium 3.2 mmol/L (3.3-5.1); Sodium 149 mmol/L (135-145)
--- NOTE | 2024-11-16 08:07 | P.PNGS_ITS ---
Subjective Subjective Date of Service: 11/16/24 Interval history: No events overnight Physical Exam 2 Vital Signs: Vital Signs: Last Vital Signs Temp 101.1 F H 11/16/24 06:00 Pulse 90 11/16/24 06:00 Resp 19 11/16/24 06:00 BP 92/51 L 11/16/24 07:00 Pulse Ox 93 11/16/24 07:00 O2 Del Method Mechanical Ventil ation 11/16/24 07:00 O2 Flow Rate 30 11/13/24 10:00 FiO2 35 11/16/24 07:15 Oxygen Flow Rate 15 10/29/24 14:07 BMI result Body Mass Index 30.4 Const: Other: On ventilator via the trach, sedated Neck: Other: Trach in place, surgical site dry Resp: Other: On ventilator Cardio: Rhythm: regular rhythm GI: Other: Peg tube in place, dressings dry Palpation (GI): Soft to palpation, not firm and no guarding Objective Data Active Medications Chlorhexidine Gluconate (Chlorhexidine Gluc Oral Rinse 15 Ml Mouthwash) 15 ml BUCCAL TID [facility] Last Admin: 11/15/24 20:06 Dose: 15 ml Documented By: SERENE Dextrose (Dextrose 50 % 25 Gm/50 Ml Syringe) 25 gm IVPUSH Q15M PRN; Protocol PRN Reason: per Hypoglycemia Standing Ord. Glucose (Glucose Gel 15 Gm Gel..Gram.) 15 gm PO Q15M PRN; Protocol PRN Reason: per Hypoglycemia Standing Ord. Propofol (Diprivan) 1,000 mg in 100 mls @ 0 mls/hr IVCONT .Q0M [facility]; Protocol Last Admin: 11/16/24 03:58 Dose: 20 mcg/kg/min, 12.01 mls/hr Documented By: SERENE Acetaminophen (Ofirmev) 1,000 mg in 100 mls @ 400 mls/hr IV Q6H PRN PRN Reason: Fever Last Infusion: 11/16/24 05:18 Dose: Infused Documented By: SERENE Norepinephrine Bitartrate (Levophed) 8 mg in 250 mls @ 0 mls/hr IVCONT .Q0M [facility]; Protocol Last Titration: 11/16/24 04:14 Dose: 0.06 mcg/kg/min, 10.83 mls/hr Documented By: SERENE Potassium Phosphate (Kphos) 15 mmol in 250 mls @ 62.5 mls/hr IV ONCE ONE Stop: 11/16/24 11:59 Insulin Human Lispro (Insulin Lispro 100 Unit/Ml 3 Ml Vial) 0 unit SUBCUT Q6H [facility]; Protocol Last Admin: 11/16/24 05:27 Dose: Not Given Documented By: SERENE Non-Admin Reason: No Insulin Coverage Meropenem (Meropenem 1 Gm Vial) 1 gm IVPUSH Q8H [facility] Last Admin: 11/16/24 06:02 Dose: 1 gm Documented By: SERENE Pantoprazole Sodium (Pantoprazole Sodium 40 Mg/10 Ml Vial) 40 mg IVPUSH DAILY@0630 [facility] Last Admin: 11/16/24 05:04 Dose: 40 mg Documented By: SERENE Sodium Chloride (0.9 % Sodium Chloride Flush 3 Ml Syringe) 3 ml IVFLUSH QSHIFT [facility] Last Admin: 11/15/24 23:47 Dose: 3 ml Documented By: SERENE Labs 11/16/24 05:10 11/16/24 05:10 Labs: Laboratory Results - last 24 hr 11/15/24 11/15/24 11/15/24 11:05 18:06 23:16 MCV MCH MCHC RDW Plt Count MPV Immature Gran % (Auto) Neut % (Auto) Lymph % (Auto) [place] % (Auto) Eos % (Auto) Baso % (Auto) Lymph # (Auto) [place] # (Auto) Eos # (Auto) Baso # (Auto) Abs Immat Gran (auto) Absolute Neuts (auto) Absolute Nucleated RBC Nucleated RBC % (auto) VBG pH VBG pCO2 VBG pO2 VBG HCO3 VBG O2 Saturation VBG Base Excess Anion Gap Estim Creat Clear Calc Estimated GFR POC Glucose 159 H 150 H 120 H Random Glucose Calcium Phosphorus Magnesium Albumin 11/16/24 11/16/24 05:10 05:26 MCV 97.2 MCH 29.8 MCHC 30.6 L RDW 19.4 H Plt Count 205 MPV 11.3 Immature Gran % (Auto) 1.6 H Neut % (Auto) 60.6 Lymph % (Auto) 25.3 [place] % (Auto) 5.2 Eos % (Auto) 6.8 H Baso % (Auto) 0.5 Lymph # (Auto) 2.8 [place] # (Auto) 0.6 Eos # (Auto) 0.8 H Baso # (Auto) 0.1 Abs Immat Gran (auto) 0.18 H Absolute Neuts (auto) 6.8 Absolute Nucleated RBC 0.000 Nucleated RBC % (auto) 0.0 VBG pH 7.51 H VBG pCO2 46 VBG pO2 50 VBG HCO3 37 H VBG O2 Saturation 84.0 VBG Base Excess 13.4 Anion Gap 12 Estim Creat Clear Calc 134.7 Estimated GFR > 60 POC Glucose Random Glucose 130 H Calcium 8.7 Phosphorus 2.3 L Magnesium 2.4 Albumin 3.6 Procedures Date of Service Date of Service: 11/16/24 Arterial Line Size (Gauge): 20 Progress Note: A&P Assessment and plan (1) Acute on chronic hypoxic respiratory failure: Status: Acute Assessment and Plan: Status post PEG placement and trach tube placement Care as per the ICU staff Okay to start PEG tube feeds today Keep external bolster of PEG tube snug on the skin Time Spent With Patient Time: Total time managing care of this patient today ____ minutes. Quality Stroke Does the patient have a stroke diagnosis?: No VTE Prior VTE?: No VTE Risk Level:: Medical - moderate - high VTE Device Contraindication: N/A - Device Ordered VTE Drug Contraindication: Treatment Not Tolerated
[2024-11-16] MEDS: Potassium Phosphate/NS 15 MMOL/250 ML PLAST..BAG 62.5 MMOL IV (08:22)
[2024-11-16] MEDS: 0.9 % Sodium Chloride Flush 3 ML SYRINGE IVFLUSH ×3 (08:31→20:36)
--- NOTE | 2024-11-16 10:18 | MHC.CLN ---
F/U PT S/P TRACH/PEG RECOMMEND GLUCERNA 1.0 AT MAX GOAL RATE 90ML/HR WITH 30ML PROSOURCE X1 PER DAY AND 240ML FREE WATER FLUSHES Q 6 HRS PROVIDES 2220KCALS (30KCALS/KG IBW), 105G TOTAL PROTEIN (1.4G/KG IBW), 2802ML TOTAL FREE WATER FROM FORMULA AND FLUSHES (38ML/KG IBW) NOTED SERUM NA IMPROVED SLIGHTLY WITH ADDITIONAL FREE WATER TF WILL PROMOTE WOUND HEALING MONITOR TF TOLERANCE AND LYTES
[2024-11-16] MEDS: Chlorhexidine Gluc Oral Rinse 15 ML MOUTHWASH BUCCAL ×3 (10:39→20:36)
--- NOTE | 2024-11-16 10:40 | MHC.CM.PN ---
Pt is POD 1 from trach and peg placement: Clinical updates remitted to [facility] in anticipation of transfer. CM to follow
[2024-11-16] MEDS: Norepinephrine Bitartrate/D5W 8 MG/250 ML PLAST..BAG 14.45 MG IVCONT (11:53)
[2024-11-16 12:01] LABS: Glucose, Whole Blood 136 mg/dL (60-115)
--- NOTE | 2024-11-16 14:34 | P.PNCC_ITS ---
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 No events overnight. Critical Care Time (minutes): 60 Physical Exam 2 Vital Signs: Vital Signs: Last Vital Signs Temp 100.8 F H 11/16/24 13:00 Pulse 83 11/16/24 13:00 Resp 18 11/16/24 13:00 BP 106/63 11/16/24 13:00 Pulse Ox 95 11/16/24 13:00 O2 Del Method Mechanical Ventil ation 11/16/24 13:00 O2 Flow Rate 30 11/13/24 10:00 FiO2 35 11/16/24 13:00 Oxygen Flow Rate 15 10/29/24 14:07 BMI result Body Mass Index 30.4 Const: General: no acute distress and other (Sedated on ventilatory support) Eyes: Sclerae: sclerae normal EOM: EOMs intact bilaterally Neck: Neck: Yes no lymphadenopathy, Yes trachea midline, Yes supple and Yes tracheostomy present (On ventilatory support) Resp: Effort & Inspection: normal respiratory effort and no respiratory distress Auscultation: clear to auscultation bilaterally Cardio: Rate: regular rate Rhythm: abnormal rhythm irregularly irregular Heart sounds: no gallops, no murmurs and no rubs GI: Inspection: Yes G-tube present Palpation (GI): Soft to palpation and Other GI palpation findings present ( Nontender) Auscultation: normal bowel sounds Extrem: General: No clubbing, No cyanosis and Yes edema (1+ bilateral) Objective Data Labs 11/16/24 05:10 11/16/24 05:10 Labs: Laboratory Results - last 24 hr 11/15/24 11/15/24 11/16/24 18:06 23:16 05:10 WBC 11.2 H RBC 2.52 L Hgb 7.5 L Hct 24.5 L MCV 97.2 MCH 29.8 MCHC 30.6 L RDW 19.4 H Plt Count 205 MPV 11.3 Immature Gran % (Auto) 1.6 H Neut % (Auto) 60.6 Lymph % (Auto) 25.3 [place] % (Auto) 5.2 Eos % (Auto) 6.8 H Baso % (Auto) 0.5 Lymph # (Auto) 2.8 [place] # (Auto) 0.6 Eos # (Auto) 0.8 H Baso # (Auto) 0.1 Abs Immat Gran (auto) 0.18 H Absolute Neuts (auto) 6.8 Absolute Nucleated RBC 0.000 Nucleated RBC % (auto) 0.0 VBG pH VBG pCO2 VBG pO2 VBG HCO3 VBG O2 Saturation VBG Base Excess Sodium 149 H Potassium 3.2 L Chloride 109 H Carbon Dioxide 31 H Anion Gap 12 BUN 18 H Creatinine 0.51 Estim Creat Clear Calc 134.7 Estimated GFR > 60 POC Glucose 150 H 120 H Random Glucose 130 H Calcium 8.7 Phosphorus 2.3 L Magnesium 2.4 Albumin 3.6 11/16/24 11/16/24 05:26 11:55 WBC RBC Hgb Hct MCV MCH MCHC RDW Plt Count MPV Immature Gran % (Auto) Neut % (Auto) Lymph % (Auto) [place] % (Auto) Eos % (Auto) Baso % (Auto) Lymph # (Auto) [place] # (Auto) Eos # (Auto) Baso # (Auto) Abs Immat Gran (auto) Absolute Neuts (auto) Absolute Nucleated RBC Nucleated RBC % (auto) VBG pH 7.51 H VBG pCO2 46 VBG pO2 50 VBG HCO3 37 H VBG O2 Saturation 84.0 VBG Base Excess 13.4 Sodium Potassium Chloride Carbon Dioxide Anion Gap BUN Creatinine Estim Creat Clear Calc Estimated GFR POC Glucose 136 H Random Glucose Calcium Phosphorus Magnesium Albumin Microbiology Microbiology Results: Microbiology 11/02/24 09:16 Groin, Right Gram Stain - Final 11/02/24 09:16 Groin, Right Routine Culture - Final Proteus mirabilis So albicans 10/29/24 15:29 Blood - Venous Blood Culture - Final No growth after 5 days. 10/29/24 14:42 Blood - Venous Blood Culture - Final No growth after 5 days. 10/29/24 Unknown Urine Catheterized - Kelly Catheter Urine Culture - Final Escherichia coli Progress Note: A&P Assessment and plan (1) Gastrostomy in place: Status: Acute (2) Tracheostomy in place: Status: Acute (3) Heart failure with reduced ejection fraction: Status: Acute (4) Persistent atrial fibrillation: Status: Acute (5) Non-insulin dependent type 2 diabetes mellitus: Status: Acute (6) Chronic indwelling Kelly catheter: Status: Acute (7) UTI due to extended-spectrum beta lactamase (ESBL) producing Escherichia coli: Status: Acute (8) History of prostate cancer: Status: Acute (9) Acute encephalopathy: Status: Acute (10) Idiopathic pulmonary fibrosis: Status: Acute (11) Failure to wean from mechanical ventilation: Status: Acute Plan Assessment: 79-year-old gentleman with underlying multiple medical issues admitted with ESBL UTI further complicated by septic shock, acute respiratory failure requiring ventilatory support, multiorgan failure, and hemorrhagic shock with a complication of femoral hematoma Plan: Neuro: Septic encephalopathy. Underlying chronic dysphagia. Cardiac: Septic shock, continue to treat off pressor support as tolerated. Hemorrhagic shock resolved after evacuation of femoral hematoma and blood product support. Underlying paroxysmal AFib and chronic systolic congestive heart failure. Pulmonary: Acute hypoxic respiratory failure with inability to wean from ventilatory support. Status post tracheostomy/gastrostomy on 11/15/2024. Continue to titrate off ventilatory support as tolerated. Underlying pulmonary fibrosis. Renal: No acute issues. Endo: No acute issues. Underlying diabetes mellitus, continue subcutaneous insulin. GI: No acute issues. ID: [id number] UTI, continue meropenem. Heme/Onc: Acute blood loss anemia secondary to femoral hematoma, resolved. Vascular surgery service care appreciated. Continue to monitor hemoglobin level. Psych: No acute issues. Miscellaneous: No acute issues. Prophylaxis: Pneumatic compression, ppi Diet: Tube feeds Critical care time spent: 60 minutes Quality Stroke Does the patient have a stroke diagnosis?: No VTE Prior VTE?: No VTE Risk Level:: Medical - moderate - high VTE Device Contraindication: N/A - Device Ordered VTE Drug Contraindication: Treatment Not Tolerated
[2024-11-16 18:06] LABS: Glucose, Whole Blood 153 mg/dL (60-115)
[2024-11-16] MEDS: Insulin Lispro 100 UNIT/ML 3 ML VIAL SUBCUT (18:16)
--- NOTE | 2024-11-16 19:04 | PC.NURSE ---
Sedation vacation initiated today at 11:00am . Opens eyes occasionally, does not track, does not follow commands, Moves upper extremities weakly. (passive ROM performed).? S/P? Peg/ Trach placement? 11/15.? on Levophed gtt - see MAR, MAP goal > 65.? Post left femoral hematoma evacuation 11/11. Dressing C&D,? + pedal pulses BL.? Kelly in place patent/draining. LBM 11/16, soft abdomen, + bowel sounds, Tolerating? tubefeeds without signs of intolerance,? POC q 6HRS. Impaired skin integrity - see skin assessment (repositioning maintained)? RIJ TLC,? peripheral IV.
[2024-11-16 23:34] LABS: Glucose, Whole Blood 145 mg/dL (60-115)
[2024-11-17] VITALS (38 sets, daily range): BP systolic 89–129; BP diastolic 43–70; PULSE 76–102; RESP 11–35; TEMP 34.9–38.4; O2SAT 90–100; BMI 32.0
[2024-11-17 05:14] LABS: VBG Base Excess 13.8 mmol/L; VBG HCO3 37 mmol/L (22-26); VBG pCO2 44 mmHg; VBG pH 7.53 (7.32-7.43); VBG pO2 40 mmHg
[2024-11-17 05:17] LABS: Venous Blood Gas Refer to POC result
[2024-11-17 05:42] LABS: MANUAL DIFF FLAG NO
[2024-11-17] MEDS: Insulin Lispro 100 UNIT/ML 3 ML VIAL SUBCUT ×3 (05:44→18:23)
[2024-11-17 05:45] LABS: Basophils Absolute Auto 0.1 X10*3/uL (0.0-0.2); Basophils Percent Auto 0.6 % (0-2); Eosinophils Absolute Auto 0.6 X10*3/uL (0.0-0.4); Hematocrit 28.3 % (42.0-52.0); Hemoglobin 8.4 g/dl (14.0-18.0); Imm Gran Abs Auto 0.13 X10*3/uL (0.00-0.03); Lymphocytes Absolute Auto 4.3 X10*3/uL (1.2-4.9); Lymphocytes Percent Auto 34.3 % (20-40); Mean Corpuscular HGB Conc 29.7 g/dl (31.0-36.0); Mean Corpuscular Hemoglobin 28.8 pg (27.0-33.0); Mean Corpuscular Volume 96.9 fL (80.0-98.0); Mean Platelet Volume 11.4 fL (9.4-12.4); Monocytes Absolute Auto 0.8 X10*3/uL (0.1-1.2); Monocytes Percent Auto 6.7 % (2-11); NRBC Pct Auto 0.2 /100WBC (0.0-0.2); Neutrophils Absolute Auto 6.5 x10*3/uL (2.0-8.3); Neutrophils Percent Auto 52.4 % (45-73); Platelet Count 254 X10*3/uL (160-400); Red Blood Count 2.92 X10*6/uL (4.60-5.80); Red Cell Distribution Width 19.7 % (11.0-16.0); White Blood Count 12.5 X10*3/uL (4.8-10.8)
[2024-11-17 05:47] LABS: Glucose, Whole Blood 161 mg/dL (60-115)
[2024-11-17 06:04] LABS: Albumin Level 3.1 g/dL (3.5-5.0); Anion Gap 12 (12-20); Blood Urea Nitrogen 17 mg/dL (9-16); Calcium 8.7 mg/dL (8.4-10.2); Carbon Dioxide 31 mmol/L (22-29); Chloride 108 mmol/L (96-108); Estimated Glomerular Filt Rate > 60; Glucose Random 163 mg/dL (60-115); Magnesium 2.3 mg/dL (1.6-2.6); Phosphorus 2.1 mg/dL (2.7-4.5); Potassium 3.3 mmol/L (3.3-5.1); Sodium 148 mmol/L (135-145)
--- NOTE | 2024-11-17 06:58 | PC.NURSE ---
Legal Billing Clerk attempted x2 to place ultrasound IV with tentative plan to discontinue RT IJ TLC. Attempts unsuccessful. Pt continues on levophed gtt infusing via central line. BRIAN Rushing made aware. Catheter remains patent/functional, dressing and line c/d/i, and without redness or drainage to surrounding skin.
[2024-11-17] MEDS: Meropenem 1 GM VIAL IVPUSH ×3 (07:23→22:10)
[2024-11-17] MEDS: Potassium Phosphate/NS 15 MMOL/250 ML PLAST..BAG 62.5 MMOL IV (07:23)
[2024-11-17] MEDS: Albumin Human 25 % 100 ML IV ×3 (07:24→19:11)
[2024-11-17] MEDS: 0.9 % Sodium Chloride Flush 3 ML SYRINGE IVFLUSH ×2 (07:25→14:26)
[2024-11-17] MEDS: Chlorhexidine Gluc Oral Rinse 15 ML MOUTHWASH BUCCAL ×3 (08:11→20:20)
--- NOTE | 2024-11-17 08:21 | HO.POSTANES ---
Post Anesthesia Evaluation Post Anesthesia Evaluation Date of Service: 11/17/24 Vital Signs: Vital Signs Temp Pulse Resp BP Pulse Ox O2 Del Method FiO2 11/17/24 08:00 94 35 11/17/24 07:43 35 11/17/24 07:00 100.2 F 85 18 103/52 L 97 35 11/17/24 06:15 95 120/57 L 11/17/24 06:00 100.4 F 89 18 120/57 L 94 Humidified O2, Mechanical Ventilation 35 11/17/24 04:59 100.8 F H 83 23 H 119/54 L 96 Mechanical Ventilation 35 11/17/24 04:53 35 11/17/24 04:15 83 90/50 L 11/17/24 04:00 97 35 11/17/24 03:57 100.8 F H 87 23 H 98/55 L Mechanical Ventilation 35 11/17/24 03:43 86 93/52 L 11/17/24 03:00 100.8 F H 92 14 100/53 L 97 Mechanical Ventilation 35 11/17/24 02:42 81 120/61 11/17/24 02:00 100.6 F H 85 16 99/60 97 Mechanical Ventilation 35 11/17/24 00:58 100.4 F 83 18 114/64 95 Mechanical Ventilation 35 11/17/24 00:00 100.4 F 90 14 114/48 L 97 Mechanical Ventilation 35 11/16/24 23:58 35 11/16/24 23:48 96 35 11/16/24 22:52 100.6 F H 83 16 103/53 L 96 Mechanical Ventilation 35 11/16/24 22:36 100.6 F H 85 18 97 Mechanical Ventilation 35 11/16/24 21:51 100.8 F H 88 20 98/53 L 96 Mechanical Ventilation 35 11/16/24 21:00 100.8 F H 80 18 101/60 93 Mechanical Ventilation 35 11/16/24 20:39 74 111/64 11/16/24 20:24 35 Anesthesia: General Endotracheal-GETA Hydration: Adequate Anesthesia-Related Issues: No Anes. Related Issues Comments: Patient had a tracheostomy on 11/15/24 and remains in the ICU on the ventilator. Off sedation but not awake enough to participate or cooperate for examination. Continue care per primary ICU team. Anesthesia team to follow-up as necessary.
[2024-11-17] MEDS: Norepinephrine Bitartrate/D5W 8 MG/250 ML PLAST..BAG 14.45 MG IVCONT (08:26)
--- NOTE | 2024-11-17 10:47 | MHC.CLN ---
F/U PT S/P TRACH/PEG DISCUSSED AT ROUNDS WITH TF CURRENTLY AT 60ML/HR AND SLOWLY TITRATING UP TO GOAL PER NSG RECEIVING GLUCERNA 1.0 AT MAX GOAL RATE 90ML/HR WITH 30ML PROSOURCE X1 PER DAY AND 240ML FREE WATER FLUSHES Q 6 HRS PROVIDES 2220KCALS (30KCALS/KG IBW), 105G TOTAL PROTEIN (1.4G/KG IBW), 2802ML TOTAL FREE WATER FROM FORMULA AND FLUSHES (38ML/KG IBW) NOTED SERUM NA IMPROVED SLIGHTLY WITH ADDITIONAL FREE WATER TF WILL PROMOTE WOUND HEALING CONTINUE TO MONITOR TF TOLERANCE AND LYTES
[2024-11-17 11:38] LABS: Glucose, Whole Blood 168 mg/dL (60-115)
--- NOTE | 2024-11-17 11:58 | P.PNCC_ITS ---
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 No events overnight. Slowly improving encephalopathy. Starting to tolerate pressure support trials. Critical Care Time (minutes): 45 Physical Exam 2 Vital Signs: Vital Signs: Last Vital Signs Temp 100.6 F H 11/17/24 11:00 Pulse 89 11/17/24 11:00 Resp 11 L 11/17/24 11:00 BP 94/59 L 11/17/24 11:00 Pulse Ox 95 11/17/24 11:00 O2 Del Method Mechanical Ventil ation 11/17/24 11:00 O2 Flow Rate 30 11/13/24 10:00 FiO2 35 11/17/24 11:37 Oxygen Flow Rate 15 10/29/24 14:07 BMI result Body Mass Index 32.0 Const: General: no acute distress and lethargic (Arousable) O rientation/consciousness: lethargic (Arousable) Eyes: Sclerae: sclerae normal EOM: EOMs intact bilaterally Neck: Neck: Yes no lymphadenopathy, Yes trachea midline, Yes supple and Yes tracheostomy present (On vent) Resp: Effort & Inspection: normal respiratory effort and no respiratory distress Auscultation: clear to auscultation bilaterally Cardio: Rate: regular rate Rhythm: abnormal rhythm irregularly irregular Heart sounds: no gallops, no murmurs and no rubs GI: Inspection: Yes G-tube present Palpation (GI): Soft to palpation and Other GI palpation findings present ( Nontender) Auscultation: normal bowel sounds Extrem: General: No clubbing, No cyanosis and Yes edema (1+ bilateral) Objective Data Labs 11/17/24 05:00 11/17/24 05:00 Labs: Laboratory Results - last 24 hr 11/16/24 11/16/24 11/16/24 11:55 17:58 23:27 WBC RBC Hgb Hct MCV MCH MCHC RDW Plt Count MPV Immature Gran % (Auto) Neut % (Auto) Lymph % (Auto) [place] % (Auto) Eos % (Auto) Baso % (Auto) Lymph # (Auto) [place] # (Auto) Eos # (Auto) Baso # (Auto) Abs Immat Gran (auto) Absolute Neuts (auto) Absolute Nucleated RBC Nucleated RBC % (auto) VBG pH VBG pCO2 VBG pO2 VBG HCO3 VBG O2 Saturation VBG Base Excess Sodium Potassium Chloride Carbon Dioxide Anion Gap BUN Creatinine Estim Creat Clear Calc Estimated GFR POC Glucose 136 H 153 H 145 H Random Glucose Calcium Phosphorus Magnesium Albumin 11/17/24 11/17/24 11/17/24 05:00 05:10 05:40 WBC 12.5 H RBC 2.92 L Hgb 8.4 L Hct 28.3 L MCV 96.9 MCH 28.8 MCHC 29.7 L RDW 19.7 H Plt Count 254 MPV 11.4 Immature Gran % (Auto) 1.0 H Neut % (Auto) 52.4 Lymph % (Auto) 34.3 [place] % (Auto) 6.7 Eos % (Auto) 5.0 H Baso % (Auto) 0.6 Lymph # (Auto) 4.3 [place] # (Auto) 0.8 Eos # (Auto) 0.6 H Baso # (Auto) 0.1 Abs Immat Gran (auto) 0.13 H Absolute Neuts (auto) 6.5 Absolute Nucleated RBC 0.020 H Nucleated RBC % (auto) 0.2 VBG pH 7.53 H VBG pCO2 44 VBG pO2 40 VBG HCO3 37 H VBG O2 Saturation 68.0 VBG Base Excess 13.8 Sodium 148 H Potassium 3.3 Chloride 108 Carbon Dioxide 31 H Anion Gap 12 BUN 17 H Creatinine 0.51 Estim Creat Clear Calc 138.0 Estimated GFR > 60 POC Glucose 161 H Random Glucose 163 H Calcium 8.7 Phosphorus 2.1 L Magnesium 2.3 Albumin 3.1 L 11/17/24 11:35 WBC RBC Hgb Hct MCV MCH MCHC RDW Plt Count MPV Immature Gran % (Auto) Neut % (Auto) Lymph % (Auto) [place] % (Auto) Eos % (Auto) Baso % (Auto) Lymph # (Auto) [place] # (Auto) Eos # (Auto) Baso # (Auto) Abs Immat Gran (auto) Absolute Neuts (auto) Absolute Nucleated RBC Nucleated RBC % (auto) VBG pH VBG pCO2 VBG pO2 VBG HCO3 VBG O2 Saturation VBG Base Excess Sodium Potassium Chloride Carbon Dioxide Anion Gap BUN Creatinine Estim Creat Clear Calc Estimated GFR POC Glucose 168 H Random Glucose Calcium Phosphorus Magnesium Albumin Microbiology Microbiology Results: Microbiology 11/02/24 09:16 Groin, Right Gram Stain - Final 11/02/24 09:16 Groin, Right Routine Culture - Final Proteus mirabilis So albicans 10/29/24 15:29 Blood - Venous Blood Culture - Final No growth after 5 days. 10/29/24 14:42 Blood - Venous Blood Culture - Final No growth after 5 days. 10/29/24 Unknown Urine Catheterized - Kelly Catheter Urine Culture - Final Escherichia coli Progress Note: A&P Assessment and plan (1) Heart failure with reduced ejection fraction: Status: Acute (2) Persistent atrial fibrillation: Status: Acute (3) Non-insulin dependent type 2 diabetes mellitus: Status: Acute (4) Tracheostomy in place: Status: Acute (5) Gastrostomy in place: Status: Acute (6) UTI due to extended-spectrum beta lactamase (ESBL) producing Escherichia coli: Status: Acute (7) Septic shock: Status: Acute (8) Metabolic encephalopathy: Status: Acute (9) Idiopathic pulmonary fibrosis: Status: Acute (10) Failure to wean from mechanical ventilation: Status: Acute Plan Assessment: 79-year-old gentleman with underlying multiple medical issues admitted with ESBL UTI further complicated by septic shock, acute respiratory failure requiring ventilatory support, multiorgan failure, and hemorrhagic shock with a complication of femoral hematoma Plan: Neuro: Septic encephalopathy, slowly improving. Underlying chronic dysphagia. Cardiac: Septic shock, continue to treat off pressor support as tolerated. Hemorrhagic shock resolved after evacuation of femoral hematoma and blood product support. Underlying paroxysmal AFib and chronic systolic congestive heart failure. Pulmonary: Acute hypoxic respiratory failure with inability to wean from ventilatory support. Status post tracheostomy/gastrostomy on 11/15/2024. Continue to titrate off ventilatory support as tolerated. Underlying pulmonary fibrosis. Starting to tolerate pressor support trials Renal: No acute issues. Endo: No acute issues. Underlying diabetes mellitus, continue subcutaneous insulin. GI: No acute issues. Status post PEG. ID: ESBL UTI, continue meropenem. Heme/Onc: Acute blood loss anemia secondary to femoral hematoma, resolved. Vascular surgery service care appreciated. Continue to monitor hemoglobin level. Psych: No acute issues. Miscellaneous: No acute issues. Prophylaxis: Pneumatic compression, ppi Diet: Tube feeds Critical care time spent: 45 minutes Quality Stroke Does the patient have a stroke diagnosis?: No VTE Prior VTE?: No VTE Risk Level:: Medical - moderate - high VTE Device Contraindication: N/A - Device Ordered VTE Drug Contraindication: Treatment Not Tolerated
--- NOTE | 2024-11-17 14:37 | MHC.CM.PN ---
PT IS POD#2 TRACH/PEG , REMAINS IN ICU. [facility] FOLLOWING FOR POSSIBLE DC NEXT WEEK. CM WILL FOLLOW FOR PLAN.
--- NOTE | 2024-11-17 17:07 | HO.PICC ---
PICC Line Insertion NPICC Diagnosis: UTI Indication: prolonged use of IV medications Pertinent Labs: Reviewed Technique: Following informed consent including risks, benefits and alternatives and using sterile technique including cap and mask, sterile gown, glove and drape, the left arm was prepped and draped in the usual sterile fashion of full barrier technique with CHG. Following completion of [place] Protocol the skin and soft tissues were anesthetized with 1% Lidocaine plain. Using ultrasound guidance, the patent left basilic vein access was obtained in a single attempt by this RN. Over an 0.018 wire through peel-away sheath, a 5 [place] triple lumen PASV PICC line was positioned. Catheter length is 41 cm internal length, the external length was at the 0 external sophie, for a total trimmed length of 41 cm. The procedure was performed in 253. Tip verification was performed by Manoj Richmond with Sherlock 3CG. Tip located in SVC. Ultrasound was used to document vein patency and for needle entry. A formal ultrasound picture and cardiac rhythm strip was recorded. Vascular [employer] S[employer] Machine has released the line for use and it is currently dressed with a StatLock, Tegaderm, and CHG disc. Verification has been performed for blood return and line patency. Arm Circumference: 36 Equipment: FilmLoop SOLO HF Catheter with Sherlock 3 CG Catheter Type: 5 [place]ese triple lumen PASV PICC Lot #: [id number]
--- NOTE | 2024-11-17 17:39 | PC.NURSE ---
11/17/2024 1739 XRay report states tip of PICC line is in the left innominate vein and should be advanced [address] Carranza who stated that the line can be safely used but should be rewired and advanced next week. The phone call and this information was provided to Dr Beckford who agreed that it could be safely used. DOCK MANAGER Stephanie was informed as well.
[2024-11-17 18:07] LABS: Glucose, Whole Blood 153 mg/dL (60-115)
--- NOTE | 2024-11-17 19:07 | PC.NURSE ---
Off sedation since 11/16 at 11:00am . Opens eyes occasionally, does not track, does not follow commands, Moves head and? upper extremities weakly. (passive ROM performed).? Tolerated PS ventilation for approx. 4 hours? S/P? Peg/ Trach placement? 11/15.? on Levophed gtt - see MAR, MAP goal >65.? Post left femoral hematoma evacuation 11/11. Dressing C&D,? + pedal pulses BL.? Kelly in place patent/draining. LBM 11/17, soft abdomen, + bowel sounds, Tolerating? tubefeeds without signs of intolerance,? POC q 6HRS. Impaired skin integrity - see skin assessment (repositioning maintained)? RIJ TLC,? peripheral IV x1,? PICC line placed late afternoon to the left upper arm, Per Dr. Beckford is ok to use.
--- NOTE | 2024-11-17 23:03 | PC.NURSE ---
TLC removed, line intact, pressure held for 5 mins per recommendation of SEPARATIONS SCIENTIST. pt tolerated well. VSS.
[2024-11-17 23:32] LABS: Glucose, Whole Blood 148 mg/dL (60-115)
[2024-11-18] VITALS (36 sets, daily range): BP systolic 90–126; BP diastolic 43–85; PULSE 72–108; RESP 11–22; TEMP 35.1–38.6; O2SAT 90–98; BMI 35.3
[2024-11-18] MEDS: Acetaminophen Oral Liquid 650 MG/20.3 ML SOLUTION PO ×2 (00:32→21:54)
[2024-11-18] MEDS: Albumin Human 25 % 100 ML IV (01:44)
[2024-11-18 05:28] LABS: VBG Base Excess 13.2 mmol/L; VBG HCO3 36 mmol/L (22-26); VBG pCO2 42 mmHg; VBG pH 7.54 (7.32-7.43); VBG pO2 39 mmHg
[2024-11-18] MEDS: Norepinephrine Bitartrate/D5W 8 MG/250 ML PLAST..BAG 10.83 MG IVCONT (05:49)
[2024-11-18 05:55] LABS: MANUAL DIFF FLAG NO
[2024-11-18 05:58] LABS: Basophils Absolute Auto 0.1 X10*3/uL (0.0-0.2); Basophils Percent Auto 0.4 % (0-2); Eosinophils Absolute Auto 0.6 X10*3/uL (0.0-0.4); Hemoglobin 7.5 g/dl (14.0-18.0); Imm Gran Abs Auto 0.13 X10*3/uL (0.00-0.03); Imm Gran Pct Auto 1.1 % (0.0-0.4); Lymphocytes Absolute Auto 4.1 X10*3/uL (1.2-4.9); Lymphocytes Percent Auto 35.4 % (20-40); Mean Corpuscular Hemoglobin 29.1 pg (27.0-33.0); Mean Corpuscular Volume 96.9 fL (80.0-98.0); Mean Platelet Volume 11.3 fL (9.4-12.4); Monocytes Absolute Auto 0.8 X10*3/uL (0.1-1.2); Monocytes Percent Auto 7.3 % (2-11); NRBC Pct Auto 0.2 /100WBC (0.0-0.2); Neutrophils Absolute Auto 5.8 x10*3/uL (2.0-8.3); Neutrophils Percent Auto 50.8 % (45-73); Platelet Count 221 X10*3/uL (160-400); Red Blood Count 2.58 X10*6/uL (4.60-5.80); Red Cell Distribution Width 19.9 % (11.0-16.0); White Blood Count 11.4 X10*3/uL (4.8-10.8)
[2024-11-18 06:07] LABS: Glucose, Whole Blood 181 mg/dL (60-115)
[2024-11-18 06:12] LABS: Albumin Level 3.5 g/dL (3.5-5.0); Anion Gap 14 (12-20); Blood Urea Nitrogen 18 mg/dL (9-16); Carbon Dioxide 29 mmol/L (22-29); Chloride 108 mmol/L (96-108); Creatinine Clr Calc Pharmacy 125.7; Estimated Glomerular Filt Rate > 60; Glucose Random 170 mg/dL (60-115); Magnesium 2.3 mg/dL (1.6-2.6); Phosphorus 2.6 mg/dL (2.7-4.5); Potassium 3.7 mmol/L (3.3-5.1); Sodium 147 mmol/L (135-145)
[2024-11-18] MEDS: Insulin Lispro 100 UNIT/ML 3 ML VIAL SUBCUT ×2 (06:12→11:29)
[2024-11-18] MEDS: Meropenem 1 GM VIAL IVPUSH ×3 (06:13→21:54)
--- NOTE | 2024-11-18 06:33 | PC.NURSE ---
assumed care 1900, sedation vacation continues pt opens eyes does not track or follow commands, titrated levo per emar, trach in place, per previous rn and RT report, known cuff leak balloon hyperinflated, tolerating with some discomfort at times, Tmax 101.3 tylenol given per emar and cooling blanket applied with good effect. Tube feed continue at goal rate water flushes given q6 no s/s of intolerance, multiple loose BMs, dorita care provided as needed, reop q2. pickering care provided. bed locked in lowest position.
[2024-11-18] MEDS: Potassium Phosphate/NS 15 MMOL/250 ML PLAST..BAG 62.5 MMOL IV (07:30)
[2024-11-18] MEDS: 0.9 % Sodium Chloride Flush 3 ML SYRINGE IVFLUSH ×3 (07:30→21:54)
[2024-11-18] MEDS: Chlorhexidine Gluc Oral Rinse 15 ML MOUTHWASH BUCCAL ×3 (08:38→20:19)
--- NOTE | 2024-11-18 10:23 | P.PNCC_ITS ---
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 No events overnight. Slowly improving encephalopathy. Slowly improving tolerance of pressure support trials. Critical Care Time (minutes): 45 Physical Exam 2 Vital Signs: Vital Signs: Last Vital Signs Temp 97.7 F 11/18/24 09:00 Pulse 87 11/18/24 09:00 Resp 20 11/18/24 09:00 BP 102/51 L 11/18/24 09:00 Pulse Ox 94 11/18/24 09:00 O2 Del Method Mechanical Ventil ation 11/18/24 09:00 O2 Flow Rate 4 11/18/24 04:00 FiO2 35 11/18/24 09:00 Oxygen Flow Rate 15 10/29/24 14:07 BMI result Body Mass Index 35.3 Const: General: no acute distress and lethargic (Arousable) O rientation/consciousness: lethargic (Arousable) Eyes: Sclerae: sclerae normal EOM: EOMs intact bilaterally Neck: Neck: Yes no lymphadenopathy, Yes trachea midline, Yes supple and Yes tracheostomy present (On vent) Resp: Effort & Inspection: normal respiratory effort and no respiratory distress Auscultation: crackles (Mild bilateral) Cardio: Rate: regular rate Rhythm: abnormal rhythm irregularly irregular Heart sounds: no gallops, no murmurs and no rubs GI: Inspection: Yes G-tube present Palpation (GI): Soft to palpation and Other GI palpation findings present ( Nontender) Auscultation: normal bowel sounds Extrem: General: No clubbing, No cyanosis and Yes edema (Trace bilateral) Objective Data Labs 11/18/24 05:28 11/18/24 05:28 Labs: Laboratory Results - last 24 hr 11/17/24 11/17/24 11/17/24 11:35 17:56 23:25 WBC RBC Hgb Hct MCV MCH MCHC RDW Plt Count MPV Immature Gran % (Auto) Neut % (Auto) Lymph % (Auto) [place] % (Auto) Eos % (Auto) Baso % (Auto) Lymph # (Auto) [place] # (Auto) Eos # (Auto) Baso # (Auto) Abs Immat Gran (auto) Absolute Neuts (auto) Absolute Nucleated RBC Nucleated RBC % (auto) VBG pH VBG pCO2 VBG pO2 VBG HCO3 VBG O2 Saturation VBG Base Excess Sodium Potassium Chloride Carbon Dioxide Anion Gap BUN Creatinine Estim Creat Clear Calc Estimated GFR POC Glucose 168 H 153 H 148 H Random Glucose Calcium Phosphorus Magnesium Albumin 11/18/24 11/18/24 11/18/24 05:23 05:28 05:55 WBC 11.4 H RBC 2.58 L Hgb 7.5 L Hct 25.0 L MCV 96.9 MCH 29.1 MCHC 30.0 L RDW 19.9 H Plt Count 221 MPV 11.3 Immature Gran % (Auto) 1.1 H Neut % (Auto) 50.8 Lymph % (Auto) 35.4 [place] % (Auto) 7.3 Eos % (Auto) 5.0 H Baso % (Auto) 0.4 Lymph # (Auto) 4.1 [place] # (Auto) 0.8 Eos # (Auto) 0.6 H Baso # (Auto) 0.1 Abs Immat Gran (auto) 0.13 H Absolute Neuts (auto) 5.8 Absolute Nucleated RBC 0.020 H Nucleated RBC % (auto) 0.2 VBG pH 7.54 H VBG pCO2 42 VBG pO2 39 VBG HCO3 36 H VBG O2 Saturation 69.0 VBG Base Excess 13.2 Sodium 147 H Potassium 3.7 Chloride 108 Carbon Dioxide 29 Anion Gap 14 BUN 18 H Creatinine 0.56 Estim Creat Clear Calc 125.7 Estimated GFR > 60 POC Glucose 181 H Random Glucose 170 H Calcium 9.0 Phosphorus 2.6 L Magnesium 2.3 Albumin 3.5 Microbiology Microbiology Results: Microbiology 11/02/24 09:16 Groin, Right Gram Stain - Final 11/02/24 09:16 Groin, Right Routine Culture - Final Proteus mirabilis So albicans 10/29/24 15:29 Blood - Venous Blood Culture - Final No growth after 5 days. 10/29/24 14:42 Blood - Venous Blood Culture - Final No growth after 5 days. 10/29/24 Unknown Urine Catheterized - Kelly Catheter Urine Culture - Final Escherichia coli Progress Note: A&P Assessment and plan (1) Heart failure with reduced ejection fraction: Status: Acute (2) Persistent atrial fibrillation: Status: Acute (3) Non-insulin dependent type 2 diabetes mellitus: Status: Acute (4) Tracheostomy in place: Status: Acute (5) Gastrostomy in place: Status: Acute (6) UTI due to extended-spectrum beta lactamase (ESBL) producing Escherichia coli: Status: Acute (7) History of prostate cancer: Status: Acute (8) Acute encephalopathy: Status: Acute (9) Idiopathic pulmonary fibrosis: Status: Acute (10) Failure to wean from mechanical ventilation: Status: Acute Plan Assessment: 79-year-old gentleman with underlying multiple medical issues admitted with ESBL UTI further complicated by septic shock, acute respiratory failure requiring ventilatory support, multiorgan failure, and hemorrhagic shock with a complication of femoral hematoma Plan: Neuro: Septic encephalopathy, slowly improving. Underlying chronic dysphagia. Cardiac: Septic shock, continue to treat off pressor support as tolerated. Hemorrhagic shock resolved after evacuation of femoral hematoma and blood product support. Underlying paroxysmal AFib and chronic systolic congestive heart failure. Pulmonary: Acute hypoxic respiratory failure with inability to wean from ventilatory support. Status post tracheostomy/gastrostomy on 11/15/2024. Continue to titrate off ventilatory support as tolerated. Underlying pulmonary fibrosis. Improving tolerance of pressor support trials. Renal: No acute issues. Endo: No acute issues. Underlying diabetes mellitus, continue subcutaneous insulin. GI: No acute issues. Status post PEG. ID: ESBL UTI, continue meropenem. Heme/Onc: Acute blood loss anemia secondary to femoral hematoma, resolved. Vascular surgery service care appreciated. Continue to monitor hemoglobin level. Psych: No acute issues. Miscellaneous: No acute issues. Prophylaxis: Pneumatic compression, ppi Diet: Tube feeds Critical care time spent: 45 minutes Quality Stroke Does the patient have a stroke diagnosis?: No VTE Prior VTE?: No VTE Risk Level:: Medical - moderate - high VTE Device Contraindication: N/A - Device Ordered VTE Drug Contraindication: Treatment Not Tolerated
[2024-11-18 11:25] LABS: Glucose, Whole Blood 165 mg/dL (60-115)
[2024-11-18 11:34] LABS: Venous Blood Gas Refer to POC result
[2024-11-18 18:06] LABS: Glucose, Whole Blood 141 mg/dL (60-115)
--- NOTE | 2024-11-18 18:32 | PC.NURSE ---
Patient remains trach/vent - failed PSV trial - patient tachypnic, low volumes. Levophed titrated off. Plan for repeat PSV trial tomorrow.
[2024-11-19] VITALS (33 sets, daily range): BP systolic 91–128; BP diastolic 27–82; PULSE 80–112; RESP 14–26; TEMP 35–38.4; O2SAT 92–99; BMI 35.4
[2024-11-19] MEDS: Insulin Lispro 100 UNIT/ML 3 ML VIAL SUBCUT ×4 (00:18→18:23)
[2024-11-19 00:21] LABS: Glucose, Whole Blood 153 mg/dL (60-115)
[2024-11-19 05:27] LABS: VBG HCO3 36 mmol/L (22-26); VBG pCO2 39 mmHg; VBG pH 7.57 (7.32-7.43); VBG pO2 43 mmHg
[2024-11-19] MEDS: Meropenem 1 GM VIAL IVPUSH (05:56)
[2024-11-19 05:58] LABS: Glucose, Whole Blood 155 mg/dL (60-115)
[2024-11-19 06:34] LABS: MANUAL DIFF FLAG NO
[2024-11-19 06:37] LABS: Basophils Absolute Auto 0.1 X10*3/uL (0.0-0.2); Basophils Percent Auto 0.4 % (0-2); Eosinophils Absolute Auto 0.5 X10*3/uL (0.0-0.4); Eosinophils Percent Auto 4.1 % (0-4); Hematocrit 26.8 % (42.0-52.0); Hemoglobin 8.1 g/dl (14.0-18.0); Imm Gran Abs Auto 0.11 X10*3/uL (0.00-0.03); Imm Gran Pct Auto 0.9 % (0.0-0.4); Lymphocytes Absolute Auto 4.3 X10*3/uL (1.2-4.9); Lymphocytes Percent Auto 34.9 % (20-40); Mean Corpuscular HGB Conc 30.2 g/dl (31.0-36.0); Mean Corpuscular Hemoglobin 29.9 pg (27.0-33.0); Mean Corpuscular Volume 98.9 fL (80.0-98.0); Mean Platelet Volume 11.7 fL (9.4-12.4); Monocytes Absolute Auto 0.9 X10*3/uL (0.1-1.2); Monocytes Percent Auto 7.6 % (2-11); NRBC Pct Auto 0.2 /100WBC (0.0-0.2); Neutrophils Absolute Auto 6.4 x10*3/uL (2.0-8.3); Neutrophils Percent Auto 52.1 % (45-73); Platelet Count 213 X10*3/uL (160-400); Red Blood Count 2.71 X10*6/uL (4.60-5.80); White Blood Count 12.3 X10*3/uL (4.8-10.8)
[2024-11-19 06:57] LABS: Anion Gap 12 (12-20); Blood Urea Nitrogen 22 mg/dL (9-16); Calcium 8.7 mg/dL (8.4-10.2); Carbon Dioxide 28 mmol/L (22-29); Chloride 105 mmol/L (96-108); Creatinine Clr Calc Pharmacy 125.3; Estimated Glomerular Filt Rate > 60; Glucose Random 155 mg/dL (60-115); Magnesium 2.3 mg/dL (1.6-2.6); Phosphorus 2.9 mg/dL (2.7-4.5); Potassium 4.3 mmol/L (3.3-5.1); Sodium 141 mmol/L (135-145)
[2024-11-19 08:13] LABS: Venous Blood Gas Refer to POC result
[2024-11-19] MEDS: Chlorhexidine Gluc Oral Rinse 15 ML MOUTHWASH BUCCAL ×3 (08:30→20:26)
[2024-11-19] MEDS: 0.9 % Sodium Chloride Flush 3 ML SYRINGE IVFLUSH ×2 (08:30→16:15)
--- NOTE | 2024-11-19 09:42 | PM.CCPN ---
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 No events overnight. Critical Care Time (minutes): 45 Physical Exam Vital Signs: Vital Signs: Last Vital Signs Temp 99.7 F 11/19/24 09:00 Pulse 83 11/19/24 09:00 Resp 18 11/19/24 09:00 BP 106/61 11/19/24 09:00 Pulse Ox 97 11/19/24 09:00 O2 Del Method Mechanical Ventil ation 11/19/24 09:00 O2 Flow Rate 4 11/18/24 04:00 FiO2 35 11/19/24 09:00 Oxygen Flow Rate 15 10/29/24 14:07 BMI result Body Mass Index 35.4 Const: General: no acute distress and lethargic (Arousable) Orientation/consciousness: lethargic (Arousable) Eyes: Sclerae: sclerae normal EOM: EOMs intact bilaterally Neck: Neck: Yes no lymphadenopathy, Yes trachea midline and Yes supple Resp: Effort & Inspection: normal respiratory effort and no respiratory distress Auscultation: clear to auscultation bilaterally Cardio: Rate: regular rate Rhythm: abnormal rhythm irregularly irregular Heart sounds: no gallops, no murmurs and no rubs GI: Palpation (GI): Soft to palpation and Other GI palpation findings present ( Nontender) Auscultation: normal bowel sounds Extrem: General: No clubbing, No cyanosis and Yes edema (1+ bilateral) Objective Data Labs 11/19/24 05:23 11/19/24 05:23 Labs: Laboratory Results - last 24 hr 11/18/24 11/18/24 11/19/24 11:22 17:52 00:16 WBC RBC Hgb Hct MCV MCH MCHC RDW Plt Count MPV Immature Gran % (Auto) Neut % (Auto) Lymph % (Auto) [place] % (Auto) Eos % (Auto) Baso % (Auto) Lymph # (Auto) [place] # (Auto) Eos # (Auto) Baso # (Auto) Abs Immat Gran (auto) Absolute Neuts (auto) Absolute Nucleated RBC Nucleated RBC % (auto) VBG pH VBG pCO2 VBG pO2 VBG HCO3 VBG O2 Saturation VBG Base Excess Sodium Potassium Chloride Carbon Dioxide Anion Gap BUN Creatinine Estim Creat Clear Calc Estimated GFR POC Glucose 165 H 141 H 153 H Random Glucose Calcium Phosphorus Magnesium Albumin 11/19/24 11/19/24 11/19/24 05:23 05:24 05:49 WBC 12.3 H RBC 2.71 L Hgb 8.1 L Hct 26.8 L MCV 98.9 H MCH 29.9 MCHC 30.2 L RDW 20.0 H Plt Count 213 MPV 11.7 Immature Gran % (Auto) 0.9 H Neut % (Auto) 52.1 Lymph % (Auto) 34.9 [place] % (Auto) 7.6 Eos % (Auto) 4.1 H Baso % (Auto) 0.4 Lymph # (Auto) 4.3 [place] # (Auto) 0.9 Eos # (Auto) 0.5 H Baso # (Auto) 0.1 Abs Immat Gran (auto) 0.11 H Absolute Neuts (auto) 6.4 Absolute Nucleated RBC 0.020 H Nucleated RBC % (auto) 0.2 VBG pH 7.57 H VBG pCO2 39 VBG pO2 43 VBG HCO3 36 H VBG O2 Saturation 75.0 VBG Base Excess 13.0 Sodium 141 Potassium 4.3 Chloride 105 Carbon Dioxide 28 Anion Gap 12 BUN 22 H Creatinine 0.59 Estim Creat Clear Calc 125.3 Estimated GFR > 60 POC Glucose 155 H Random Glucose 155 H Calcium 8.7 Phosphorus 2.9 Magnesium 2.3 Albumin 3.0 L Microbiology Microbiology Results: Microbiology 11/02/24 09:16 Groin, Right Gram Stain - Final 11/02/24 09:16 Groin, Right Routine Culture - Final Proteus mirabilis So albicans 10/29/24 15:29 Blood - Venous Blood Culture - Final No growth after 5 days. 10/29/24 14:42 Blood - Venous Blood Culture - Final No growth after 5 days. 10/29/24 Unknown Urine Catheterized - Kelly Catheter Urine Culture - Final Escherichia coli Progress Note: A&P Assessment and plan (1) Heart failure with reduced ejection fraction: Status: Acute (2) Persistent atrial fibrillation: Status: Acute (3) Non-insulin dependent type 2 diabetes mellitus: Status: Acute (4) Tracheostomy in place: Status: Acute (5) Gastrostomy in place: Status: Acute (6) Acute encephalopathy: Status: Acute (7) Idiopathic pulmonary fibrosis: Status: Acute (8) Failure to wean from mechanical ventilation: Status: Acute Plan Assessment: 79-year-old gentleman with underlying multiple medical issues admitted with ESBL UTI further complicated by septic shock, acute respiratory failure requiring ventilatory support, multiorgan failure, and hemorrhagic shock with a complication of femoral hematoma Plan: Neuro: Septic encephalopathy, slowly improving. Underlying chronic dysphagia. Cardiac: Septic shock, continue to treat off pressor support as tolerated. Hemorrhagic shock resolved after evacuation of femoral hematoma and blood product support. Underlying paroxysmal AFib and chronic systolic congestive heart failure. Pulmonary: Acute hypoxic respiratory failure with inability to wean from ventilatory support. Status post tracheostomy/gastrostomy on 11/15/2024. Continue to titrate off ventilatory support as tolerated. Underlying pulmonary fibrosis. Improving tolerance of pressor support trials. Renal: No acute issues. Endo: No acute issues. Underlying diabetes mellitus, continue subcutaneous insulin. GI: No acute issues. Status post PEG. ID: ESBL UTI, s/p meropnem course. Will monitor off antibiotics. Heme/Onc: Acute blood loss anemia secondary to femoral hematoma, resolved. Vascular surgery service care appreciated. Continue to monitor hemoglobin level. Psych: No acute issues. Miscellaneous: No acute issues. Prophylaxis: Pneumatic compression, ppi Diet: Tube feeds Critical care time spent: 45 minutes Quality Stroke Does the patient have a stroke diagnosis?: No VTE Prior VTE?: No VTE Risk Level:: Medical - moderate - high VTE Device Contraindication: N/A - Device Ordered VTE Drug Contraindication: Treatment Not Tolerated
[2024-11-19 12:12] LABS: Glucose, Whole Blood 170 mg/dL (60-115)
--- NOTE | 2024-11-19 17:14 | PC.NURSE ---
Assumed care at 0700. Pt. [facility] for [facility]x [facility]. Pt. on PSV for approx 1 hr, pt. became tachycardic HR 110s-130s and tachypnic RR 35-50- back on ACVC settings. Pt. currently resting in bed. Plan of care ongoing.
[2024-11-19 18:15] LABS: Glucose, Whole Blood 164 mg/dL (60-115)
[2024-11-19 23:51] LABS: Glucose, Whole Blood 150 mg/dL (60-115)
[2024-11-20] VITALS (43 sets, daily range): BP systolic 77–131; BP diastolic 40–72; PULSE 52–100; RESP 12–39; TEMP 35–37.9; O2SAT 70–98; BMI 35.8
[2024-11-20] MEDS: Acetaminophen Oral Liquid 650 MG/20.3 ML SOLUTION PO (00:03)
[2024-11-20] MEDS: Norepinephrine Bitartrate/D5W 8 MG/250 ML PLAST..BAG 9.03 MG IVCONT (01:03)
--- NOTE | 2024-11-20 01:48 | PM.EVENT ---
Event Note Date of Service: 11/20/24 Event Note: Hypotension r/t tessa Time Spent With Patient Time: Total time managing care of this patient today ____ minutes.
[2024-11-20 02:15] LABS: MANUAL DIFF FLAG NO
[2024-11-20 02:26] LABS: Basophils Absolute Auto 0.1 X10*3/uL (0.0-0.2); Basophils Percent Auto 0.5 % (0-2); Eosinophils Absolute Auto 0.5 X10*3/uL (0.0-0.4); Eosinophils Percent Auto 3.6 % (0-4); Hematocrit 26.6 % (42.0-52.0); Imm Gran Abs Auto 0.13 X10*3/uL (0.00-0.03); Lymphocytes Absolute Auto 3.9 X10*3/uL (1.2-4.9); Lymphocytes Percent Auto 30.1 % (20-40); Mean Corpuscular HGB Conc 30.1 g/dl (31.0-36.0); Mean Corpuscular Hemoglobin 29.1 pg (27.0-33.0); Mean Corpuscular Volume 96.7 fL (80.0-98.0); Mean Platelet Volume 11.4 fL (9.4-12.4); Monocytes Percent Auto 7.9 % (2-11); Neutrophils Absolute Auto 7.5 x10*3/uL (2.0-8.3); Neutrophils Percent Auto 56.9 % (45-73); Platelet Count 226 X10*3/uL (160-400); Red Blood Count 2.75 X10*6/uL (4.60-5.80); Red Cell Distribution Width 19.6 % (11.0-16.0); White Blood Count 13.1 X10*3/uL (4.8-10.8)
[2024-11-20 02:32] LABS: Anion Gap 13 (12-20); Blood Urea Nitrogen 24 mg/dL (9-16); Calcium 8.5 mg/dL (8.4-10.2); Carbon Dioxide 27 mmol/L (22-29); Chloride 103 mmol/L (96-108); Creatinine Clr Calc Pharmacy 136.9; Estimated Glomerular Filt Rate > 60; Glucose Random 166 mg/dL (60-115); Magnesium 2.3 mg/dL (1.6-2.6); Phosphorus 3.2 mg/dL (2.7-4.5); Potassium 4.9 mmol/L (3.3-5.1); Sodium 138 mmol/L (135-145)
[2024-11-20 02:33] LABS: Lactic Acid 1.3 mmol/L (0.5-2.0)
--- NOTE | 2024-11-20 03:33 | PC.NURSE ---
Patient hypotensive, BP as low at 70's systolic. Levophed drip restarted. Provider notified , labs ordered. Will continue to monitor.
[2024-11-20 05:28] LABS: VBG Base Excess 10.8 mmol/L; VBG HCO3 34 mmol/L (22-26); VBG pCO2 40 mmHg; VBG pH 7.53 (7.32-7.43); VBG pO2 53 mmHg
[2024-11-20 05:29] LABS: MANUAL DIFF FLAG NO
[2024-11-20 05:30] LABS: Basophils Absolute Auto 0.1 X10*3/uL (0.0-0.2); Basophils Percent Auto 0.5 % (0-2); Eosinophils Absolute Auto 0.5 X10*3/uL (0.0-0.4); Eosinophils Percent Auto 3.3 % (0-4); Hematocrit 26.9 % (42.0-52.0); Imm Gran Abs Auto 0.14 X10*3/uL (0.00-0.03); Lymphocytes Absolute Auto 4.9 X10*3/uL (1.2-4.9); Lymphocytes Percent Auto 35.3 % (20-40); Mean Corpuscular HGB Conc 29.7 g/dl (31.0-36.0); Mean Corpuscular Hemoglobin 28.9 pg (27.0-33.0); Mean Corpuscular Volume 97.1 fL (80.0-98.0); Mean Platelet Volume 11.5 fL (9.4-12.4); Monocytes Absolute Auto 0.9 X10*3/uL (0.1-1.2); Monocytes Percent Auto 6.8 % (2-11); Neutrophils Absolute Auto 7.4 x10*3/uL (2.0-8.3); Neutrophils Percent Auto 53.1 % (45-73); Platelet Count 238 X10*3/uL (160-400); Red Blood Count 2.77 X10*6/uL (4.60-5.80); Red Cell Distribution Width 19.7 % (11.0-16.0); White Blood Count 13.9 X10*3/uL (4.8-10.8)
[2024-11-20 05:48] LABS: Albumin Level 2.8 g/dL (3.5-5.0); Anion Gap 12 (12-20); Blood Urea Nitrogen 23 mg/dL (9-16); Calcium 8.6 mg/dL (8.4-10.2); Carbon Dioxide 29 mmol/L (22-29); Chloride 102 mmol/L (96-108); Creatinine Clr Calc Pharmacy 129.7; Estimated Glomerular Filt Rate > 60; Glucose Random 206 mg/dL (60-115); Magnesium 2.3 mg/dL (1.6-2.6); Phosphorus 3.2 mg/dL (2.7-4.5); Potassium 4.6 mmol/L (3.3-5.1); Sodium 138 mmol/L (135-145)
[2024-11-20] MEDS: Insulin Lispro 100 UNIT/ML 3 ML VIAL SUBCUT ×3 (06:02→17:54)
--- NOTE | 2024-11-20 06:21 | HO.SKINPHOTO ---
Location: Left groin Category: Surgical incision
[2024-11-20] MEDS: Albumin Human 25 % 100 ML IV ×2 (08:14→14:59)
[2024-11-20] MEDS: 0.9 % Sodium Chloride Flush 3 ML SYRINGE IVFLUSH ×2 (08:14→14:59)
[2024-11-20] MEDS: Chlorhexidine Gluc Oral Rinse 15 ML MOUTHWASH BUCCAL ×3 (08:15→20:15)
--- NOTE | 2024-11-20 08:17 | PM.CCPN ---
Subjective Subjective Date of Service: 11/20/24 Critical Care Time (minutes): 35 Comment: no new events overnight Physical Exam Vital Signs: Vital Signs: Last Vital Signs Temp 98.8 F 11/20/24 07:00 Pulse 65 11/20/24 07:00 Resp 18 11/20/24 07:00 BP 107/54 L 11/20/24 07:00 Pulse Ox 96 11/20/24 08:00 O2 Del Method Mechanical Ventil ation 11/20/24 07:00 O2 Flow Rate 35 11/19/24 16:00 FiO2 35 11/20/24 08:00 Oxygen Flow Rate 15 10/29/24 14:07 BMI result Body Mass Index 35.8 General: not inacute distress, ill appearing and tired appearing Nutritional Appearance: well nourished and overweight Eyes: appearance normal, both eyes and all related structures; Alignment and Position: alignment normal and position normal Neck: No lymphadenopathy, no thyromegaly, tracheostomy looks ok Resp: bilateral air entry equal, occasional added sounds present Cardio: Regular rate, regular rhythm; Heart sounds: S1 normal heart sound present and S2 normal heart sound present GI: soft, nontender, no guarding, no hkayepatosplenomegaly , gastrostomy looks okay : bladder normal to inspection, bladder normal to palpation, no renal angle tenderness Skin: no rashes or lesions noted and elasticity normal Neuro: oriented to person, oriented to place, oriented to time and moves all extremities Objective Data Labs 11/20/24 04:55 11/20/24 04:55 Labs: Laboratory Results - last 24 hr 11/19/24 11/19/24 11/19/24 12:02 18:11 23:40 WBC RBC Hgb Hct MCV MCH MCHC RDW Plt Count MPV Immature Gran % (Auto) Neut % (Auto) Lymph % (Auto) [place] % (Auto) Eos % (Auto) Baso % (Auto) Lymph # (Auto) [place] # (Auto) Eos # (Auto) Baso # (Auto) Abs Immat Gran (auto) Absolute Neuts (auto) Absolute Nucleated RBC Nucleated RBC % (auto) VBG pH VBG pCO2 VBG pO2 VBG HCO3 VBG O2 Saturation VBG Base Excess Sodium Potassium Chloride Carbon Dioxide Anion Gap BUN Creatinine Estim Creat Clear Calc Estimated GFR POC Glucose 170 H 164 H 150 H Random Glucose Lactic Acid Calcium Phosphorus Magnesium Albumin 11/20/24 11/20/24 11/20/24 02:08 04:55 05:23 WBC 13.1 H 13.9 H RBC 2.75 L 2.77 L Hgb 8.0 L 8.0 L Hct 26.6 L 26.9 L MCV 96.7 97.1 MCH 29.1 28.9 MCHC 30.1 L 29.7 L RDW 19.6 H 19.7 H Plt Count 226 238 MPV 11.4 11.5 Immature Gran % (Auto) 1.0 H 1.0 H Neut % (Auto) 56.9 53.1 Lymph % (Auto) 30.1 35.3 [place] % (Auto) 7.9 6.8 Eos % (Auto) 3.6 3.3 Baso % (Auto) 0.5 0.5 Lymph # (Auto) 3.9 4.9 [place] # (Auto) 1.0 0.9 Eos # (Auto) 0.5 H 0.5 H Baso # (Auto) 0.1 0.1 Abs Immat Gran (auto) 0.13 H 0.14 H Absolute Neuts (auto) 7.5 7.4 Absolute Nucleated RBC 0.000 0.000 Nucleated RBC % (auto) 0.0 0.0 VBG pH 7.53 H VBG pCO2 40 VBG pO2 53 VBG HCO3 34 H VBG O2 Saturation 85.0 VBG Base Excess 10.8 Sodium 138 138 Potassium 4.9 4.6 Chloride 103 102 Carbon Dioxide 27 29 Anion Gap 13 12 BUN 24 H 23 H Creatinine 0.54 0.57 Estim Creat Clear Calc 136.9 129.7 Estimated GFR > 60 > 60 POC Glucose Random Glucose 166 H 206 H Lactic Acid 1.3 Calcium 8.5 8.6 Phosphorus 3.2 3.2 Magnesium 2.3 2.3 Albumin 2.8 L Microbiology Microbiology Results: Microbiology 11/02/24 09:16 Groin, Right Gram Stain - Final 11/02/24 09:16 Groin, Right Routine Culture - Final Proteus mirabilis So albicans 10/29/24 15:29 Blood - Venous Blood Culture - Final No growth after 5 days. 10/29/24 14:42 Blood - Venous Blood Culture - Final No growth after 5 days. 10/29/24 Unknown Urine Catheterized - Kelly Catheter Urine Culture - Final Escherichia coli Progress Note: A&P Assessment and plan (1) Heart failure with reduced ejection fraction: Status: Acute (2) Persistent atrial fibrillation: Status: Acute (3) Hemorrhagic shock: Status: Acute (4) Tracheostomy in place: Status: Acute (5) UTI (urinary tract infection): Status: Acute (6) Sepsis due to urinary tract infection: Status: Acute (7) Septic shock: Status: Acute (8) Acute on chronic hypoxic respiratory failure: Status: Acute (9) Idiopathic pulmonary fibrosis: Status: Acute (10) Failure to wean from mechanical ventilation: Status: Acute Plan 79-year-old gentleman with underlying IPF, AFib on anticoagulation, 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 Neuro: Acute encephalopathy possibly due to metabolic encephalopathy from urinary tract infection not on any sedation Close neurological status monitoring in the ICU every hour Cardiac: Cardiogenic shock: due to positive pressure ventilation currently on leveophed support, will titrate to keep MAP above 65mmHG Paroxysmal atrial fibrillation: possibly in MAT anticoagulation held since hematoma and hemorrhagic shock that has resolved now we will start prophylactic Lovenox Respiratory: Acute upon chronic hypoxemic respiratory failure due to idiopathic pulmonary fibrosis and pulmonary edema from heart failure currently status post tracheostomy on 11/15 2024. he is on PRVC 35%, PEEP 5, TV 380, RR 20; we will try him on pressure support trial today tolerated pressure support for couple of hours yesterday Ventilator management protocol, chlorhexidine mouthwash, head elevation, daily awakening trials GI: status post gastrostomy tube placement on 11/15/2024 continue tube feeds Renal: Normal renal function We will closely monitor I's and O's Avoid nephrotoxic medications Heme: Chronic anemia, closely monitor H&H, transfuse for hemoglobin less than 7 grams/deciliter hemoglobin stable, 8.0 Endocrine: Blood sugars under control on sliding scale as needed Sliding scale insulin as needed Infectious disease: Urine cultures positive for ESBL, blood cultures negative upon admission treated with meropenem also treated with vancomycin for skin site infection Musculoskeletal: Decubitus ulcer prevention protocol stage 2 left sacrum Lines: Peripheral Prophylaxis: Lovenox, famotidine Quality Stroke Does the patient have a stroke diagnosis?: No VTE Prior VTE?: No VTE Risk Level:: Medical - moderate - high VTE Device Contraindication: N/A - Device Ordered VTE Drug Contraindication: Treatment Not Tolerated
[2024-11-20 08:42] LABS: Venous Blood Gas Refer to POC result
--- NOTE | 2024-11-20 09:59 | MHC.CLN ---
F/U DISCUSSED AT ROUNDS WITH MD RECEIVING GLUCERNA 1.0 AT MAX GOAL RATE 90ML/HR WITH 30ML PROSOURCE X1 PER DAY AND 240ML FREE WATER FLUSHES Q 6 HRS PROVIDES 2220KCALS (30KCALS/KG IBW), 105G TOTAL PROTEIN (1.4G/KG IBW), 2802ML TOTAL FREE WATER FROM FORMULA AND FLUSHES (38ML/KG IBW) TF WILL PROMOTE WOUND HEALING NOTED SERUM NA WNL WITH ADDITIONAL FREE WATER RECOMMEND REDUCING FREE WATER FLUSHES TO 120ML Q 8 HRS TO PROVIDE 2202ML TOTAL WATER FROM FORMULA AND FLUSHES (30ML/KG) MONITOR TF TOLERANCE AND LYTES
[2024-11-20] MEDS: Famotidine/PF 20 MG/2 ML VIAL IVPUSH (10:13)
[2024-11-20] MEDS: HaloperidoL 0.5 MG TABLET PO ×3 (10:13→20:14)
[2024-11-20] MEDS: Valproic Acid Liquid 250 MG/5 ML SOLUTION PO ×3 (12:22→20:15)
--- NOTE | 2024-11-20 13:23 | MHC.CM.PN ---
Pt to continue PSV trials w/trach: RAfib over the weekend: Clinical updates remitted to [facility]. [place] [facility] speak w/pt's HCP/son for possible [employer] application. No plans for transfer at this time. CM to follow
[2024-11-20] MEDS: Norepinephrine Bitartrate/D5W 8 MG/250 ML PLAST..BAG 12.64 MG IVCONT (14:05)
[2024-11-20 16:16] LABS: Glucose, Whole Blood 184 mg/dL (60-115)
[2024-11-20 17:28] LABS: Glucose, Whole Blood 161 mg/dL (60-115)
--- NOTE | 2024-11-20 19:14 | PC.NURSE ---
N- patient alert, unable to follow commands, traces with eyes at times but not consistently CV- patient continues on Levophed as per JET Pulm- attempted PSV, patient became tachypeanic and tidal volume dropping, O2 decreasing, switched back to ACVC+ per respiratory GI- no BM noted today, tube feeding continues as ordered with water boluses as ordered, prosource as ordered. - chronic pickering in place, draining bright yellow urine Turn and repo as tolerated every 2hours to maintain skin integrity, dressings to groin CDI.
[2024-11-20 23:59] LABS: Glucose, Whole Blood 165 mg/dL (60-115)
[2024-11-21] VITALS (35 sets, daily range): BP systolic 95–130; BP diastolic 37–86; PULSE 65–109; RESP 11–26; TEMP 34.8–38.4; O2SAT 90–97; BMI 32.1
[2024-11-21] MEDS: 0.9 % Sodium Chloride Flush 3 ML SYRINGE IVFLUSH ×4 (00:05→20:58)
[2024-11-21] MEDS: Insulin Lispro 100 UNIT/ML 3 ML VIAL SUBCUT ×4 (00:05→17:36)
[2024-11-21 04:26] LABS: VBG Base Excess 11.6 mmol/L; VBG HCO3 33 mmol/L (22-26); VBG pCO2 34 mmHg; VBG pO2 40 mmHg
[2024-11-21 04:42] LABS: MANUAL DIFF FLAG NO
[2024-11-21 04:43] LABS: Basophils Absolute Auto 0.1 X10*3/uL (0.0-0.2); Basophils Percent Auto 0.5 % (0-2); Eosinophils Absolute Auto 0.4 X10*3/uL (0.0-0.4); Eosinophils Percent Auto 3.5 % (0-4); Hematocrit 24.5 % (42.0-52.0); Hemoglobin 7.4 g/dl (14.0-18.0); Imm Gran Abs Auto 0.12 X10*3/uL (0.00-0.03); Lymphocytes Absolute Auto 3.2 X10*3/uL (1.2-4.9); Lymphocytes Percent Auto 26.2 % (20-40); Mean Corpuscular HGB Conc 30.2 g/dl (31.0-36.0); Mean Corpuscular Hemoglobin 29.1 pg (27.0-33.0); Mean Corpuscular Volume 96.5 fL (80.0-98.0); Mean Platelet Volume 11.6 fL (9.4-12.4); Neutrophils Absolute Auto 7.5 x10*3/uL (2.0-8.3); Neutrophils Percent Auto 60.8 % (45-73); Platelet Count 222 X10*3/uL (160-400); Red Blood Count 2.54 X10*6/uL (4.60-5.80); Red Cell Distribution Width 19.5 % (11.0-16.0); White Blood Count 12.4 X10*3/uL (4.8-10.8)
[2024-11-21 05:18] LABS: Alanine Aminotransferase < 6 U/L (0-40); Albumin Level 2.9 g/dL (3.5-5.0); Alkaline Phosphatase 223 U/L (39-117); Anion Gap 11 (12-20); Aspartate Amino Transferase 20 U/L (5-37); Bilirubin Total 0.9 mg/dL (0.0-1.0); Blood Urea Nitrogen 20 mg/dL (9-16); Calcium 8.2 mg/dL (8.4-10.2); Carbon Dioxide 28 mmol/L (22-29); Chloride 101 mmol/L (96-108); Creatinine Clr Calc Pharmacy 132.9; Estimated Glomerular Filt Rate > 60; Glucose Random 158 mg/dL (60-115); Magnesium 2.3 mg/dL (1.6-2.6); Phosphorus 2.9 mg/dL (2.7-4.5); Potassium 4.4 mmol/L (3.3-5.1); Sodium 136 mmol/L (135-145); Total Protein 6.6 g/dL (6.5-8.0)
[2024-11-21 05:31] LABS: Venous Blood Gas Refer to POC result
[2024-11-21] MEDS: Norepinephrine Bitartrate/D5W 8 MG/250 ML PLAST..BAG 12.64 MG IVCONT ×2 (05:46→21:35)
[2024-11-21 06:25] LABS: Glucose, Whole Blood 162 mg/dL (60-115)
[2024-11-21] MEDS: Valproic Acid Liquid 250 MG/5 ML SOLUTION PO ×3 (07:51→20:24)
[2024-11-21] MEDS: Chlorhexidine Gluc Oral Rinse 15 ML MOUTHWASH BUCCAL ×3 (07:51→20:24)
[2024-11-21] MEDS: HaloperidoL 0.5 MG TABLET PO ×3 (07:52→20:24)
[2024-11-21] MEDS: Famotidine/PF 20 MG/2 ML VIAL IVPUSH (07:52)
--- NOTE | 2024-11-21 08:23 | P.PNCC_ITS ---
Subjective Subjective Date of Service: 11/21/24 Critical Care Time (minutes): 35 Comment: No new events, on ventilator support Physical Exam 2 Vital Signs: Vital Signs: Last Vital Signs Temp 100.8 F H 11/21/24 08:00 Pulse 109 H 11/21/24 08:00 Resp 18 11/21/24 08:00 BP 115/75 11/21/24 08:00 Pulse Ox 91 L 11/21/24 08:00 O2 Del Method Mechanical Ventil ation 11/21/24 08:00 O2 Flow Rate 35 11/19/24 16:00 FiO2 35 11/21/24 08:00 Oxygen Flow Rate 15 10/29/24 14:07 BMI result Body Mass Index 32.1 General: Elderly male in acute distress, chronically ill appearing and tired appearing Nutritional Appearance: well nourished and overweight Eyes: appearance normal, both eyes and all related structures; Alignment and Position: alignment normal and position normal Neck: No lymphadenopathy, no thyromegaly Resp: bilateral air entry equal, occasional added sounds present Cardio: Regular rate, regular rhythm; Heart sounds: S1 normal heart sound present and S2 normal heart sound present GI: soft, nontender, no guarding, no hepatosplenomegaly : bladder normal to inspection, bladder normal to palpation, no renal angle tenderness Skin: no rashes or lesions noted and elasticity normal Neuro: Looks around, does not follow commands, moves all extremities Objective Data Labs 11/21/24 04:18 11/21/24 04:18 Labs: Laboratory Results - last 24 hr 11/20/24 11/20/24 11/20/24 12:15 17:20 23:45 WBC RBC Hgb Hct MCV MCH MCHC RDW Plt Count MPV Immature Gran % (Auto) Neut % (Auto) Lymph % (Auto) [place] % (Auto) Eos % (Auto) Baso % (Auto) Lymph # (Auto) [place] # (Auto) Eos # (Auto) Baso # (Auto) Abs Immat Gran (auto) Absolute Neuts (auto) Absolute Nucleated RBC Nucleated RBC % (auto) VBG pH VBG pCO2 VBG pO2 VBG HCO3 VBG O2 Saturation VBG Base Excess Sodium Potassium Chloride Carbon Dioxide Anion Gap BUN Creatinine Estim Creat Clear Calc Estimated GFR POC Glucose 184 H 161 H 165 H Random Glucose Calcium Phosphorus Magnesium Total Bilirubin AST ALT Alkaline Phosphatase Total Protein Albumin 11/21/24 11/21/24 11/21/24 04:18 04:22 06:20 WBC 12.4 H RBC 2.54 L Hgb 7.4 L Hct 24.5 L MCV 96.5 MCH 29.1 MCHC 30.2 L RDW 19.5 H Plt Count 222 MPV 11.6 Immature Gran % (Auto) 1.0 H Neut % (Auto) 60.8 Lymph % (Auto) 26.2 [place] % (Auto) 8.0 Eos % (Auto) 3.5 Baso % (Auto) 0.5 Lymph # (Auto) 3.2 [place] # (Auto) 1.0 Eos # (Auto) 0.4 Baso # (Auto) 0.1 Abs Immat Gran (auto) 0.12 H Absolute Neuts (auto) 7.5 Absolute Nucleated RBC 0.000 Nucleated RBC % (auto) 0.0 VBG pH 7.60 H* VBG pCO2 34 VBG pO2 40 VBG HCO3 33 H VBG O2 Saturation 73.0 VBG Base Excess 11.6 Sodium 136 Potassium 4.4 Chloride 101 Carbon Dioxide 28 Anion Gap 11 L BUN 20 H Creatinine 0.56 Estim Creat Clear Calc 132.9 Estimated GFR > 60 POC Glucose 162 H Random Glucose 158 H Calcium 8.2 L Phosphorus 2.9 Magnesium 2.3 Total Bilirubin 0.9 AST 20 ALT < 6 Alkaline Phosphatase 223 H Total Protein 6.6 Albumin 2.9 L Microbiology Microbiology Results: Microbiology 11/02/24 09:16 Groin, Right Gram Stain - Final 11/02/24 09:16 Groin, Right Routine Culture - Final Proteus mirabilis So albicans 10/29/24 15:29 Blood - Venous Blood Culture - Final No growth after 5 days. 10/29/24 14:42 Blood - Venous Blood Culture - Final No growth after 5 days. 10/29/24 Unknown Urine Catheterized - Kelly Catheter Urine Culture - Final Escherichia coli Progress Note: A&P Assessment and plan (1) Heart failure with reduced ejection fraction: Status: Acute (2) Persistent atrial fibrillation: Status: Acute (3) Hemorrhagic shock: Status: Acute (4) Non-insulin dependent type 2 diabetes mellitus: Status: Acute (5) Metabolic encephalopathy: Status: Acute (6) Acute encephalopathy: Status: Acute (7) Idiopathic pulmonary fibrosis: Status: Acute (8) Acute on chronic hypoxic respiratory failure: Status: Acute (9) Acute respiratory failure: Status: Acute Plan 79-year-old gentleman with underlying IPF, AFib on anticoagulation, 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 Neuro: Acute encephalopathy possibly due to metabolic encephalopathy from urinary tract infection not on any sedation for several days now Close neurological status monitoring in the ICU every hour Cardiac: Cardiogenic shock: due to positive pressure ventilation currently on leveophed support, will titrate to keep MAP above 65mmHG Paroxysmal atrial fibrillation: possibly in MAT anticoagulation held since hematoma and hemorrhagic shock that has resolved now we will start prophylactic Lovenox Respiratory: Acute upon chronic hypoxemic respiratory failure due to idiopathic pulmonary fibrosis and pulmonary edema from heart failure currently status post tracheostomy on 11/15 2024. he is on PRVC 35%, PEEP 5, TV 380, RR 20; pressor support trial as tolerated Ventilator management protocol, chlorhexidine mouthwash, head elevation, daily awakening trials GI: status post gastrostomy tube placement on 11/15/2024 continue tube feeds Renal: Normal renal function We will closely monitor I's and O's Avoid nephrotoxic medications Heme: Chronic anemia, closely monitor H&H, transfuse for hemoglobin less than 7 grams/deciliter hemoglobin 7.4 this morning Endocrine: Blood sugars under control on sliding scale as needed Sliding scale insulin as needed Infectious disease: Urine cultures positive for ESBL, blood cultures negative upon admission treated with meropenem also treated with vancomycin for skin site infection Musculoskeletal: Decubitus ulcer prevention protocol stage 2 left sacrum Lines: Peripheral Prophylaxis: Lovenox, famotidine Quality Stroke Does the patient have a stroke diagnosis?: No VTE Prior VTE?: No VTE Risk Level:: Medical - moderate - high VTE Device Contraindication: N/A - Device Ordered VTE Drug Contraindication: Treatment Not Tolerated
--- NOTE | 2024-11-21 08:29 | P.CDIM_ITS ---
PROVIDER RESPONSE TEXT: To clarify, the appropriate diagnosis supported by the clinical indicators: Other (explain): not written in my note, please consult the person writing the note QUERY TEXT: PHYSICIAN'S DOCUMENTATION REQUEST Date of Query: 11/21/2024 07:48 AM EST Patient Name: Kenji Perales Admit Date: 10/30/2024 Dear Nnamdi Redd MD, A review of the medical record indicates additional documentation may be needed. Please review below and update the documentation accordingly. Clinical Indicators: Surgical op note 11/16/24 - The patient is a 79 year old male with acute on chronic renal failure, wit h persistent mechanical ventilation, here for PEG placement. ICU progress notes: Renal: normal function Hold off on diuresis, monitor I&O's, avoid nephrotoxic medication. GFR: >60 CR: 0.67 BUN: 21 Please clarify which of the following accurately represents the patient's renal status: Acute on chronic renal failure ruled out, not treating this admission, possible, probable etc. Other specified diagnosis Other (explain) Clinically unable to determine (explain) Thank you, Neda Owens, CCS, CDIS Use of terms such as suspected, likely, concern for, or probable (associated with a specific diagnosi s that is being evaluated, monitored, or treated as if it exists) are acceptable and can be coded in the inpatient se tting, when documented at the time of discharge. Please use your independent medical judgment in providing your response. THIS QUERY IS PART OF THE PERMANENT MEDICAL RECORD
[2024-11-21] MEDS: Enoxaparin Sodium 40 MG/0.4 ML SYRINGE SUBCUT (09:48)
[2024-11-21 11:31] LABS: Glucose, Whole Blood 158 mg/dL (60-115)
--- NOTE | 2024-11-21 14:17 | MHC.CM.PN ---
Pt has been referred to [facility] for LTACH placement needs: son aware of site locations - waiting for [facility] to give auth for pt to transfer. Pt will likely need ALS transport. CM to follow
--- NOTE | 2024-11-21 15:35 | HO.WOUND ---
Wound Consult: Follow up 79yr old?male admitted to [facility] [place] on 10/29/24 - See progress notes and H&P for detailed history.? Wound consult follow up for multiple wounds. Today buttock as not assessed. The patient has since had a trach and PEG placement by Dr. Solorzano and on 11/15/24. The right cheek and lip are resolving - small dried stable scab noted to right cheek the lip has resolved / resurfaced no injury noted at this time. The right groin continues to improve little slough with smaller openings noted. The abdominal skin fold continued with intertrigo Durafiber and Interdry in use. Given size to left abdomen Durafiber is used. The buttock and perineal area was not assessed today. The Peg site has some MASD in the peristomal area - scant yellow slough noted - they bumper was tight to his skin with little room. Loosened and cleansed and gauze applied. The Trach site appears tight. Per direct care nurse the trach sutures were removed but was advised to not loosen the trach ties due to there being a short Trach tube in place per Dr. Solorzano and can not be replaced with a longer tube until 10days - 10/28/24. There is concern for Device related pressure injury development. current tissue is red pink and blanchable and intact. But the trach plate does sit on the clavicle bones. The areas was cleansed and new gauze applied Allevyn Classic non-adhesive foam recommended not available at this time unit to order from storeroom # [id number]. In addition recommend off loading the Trach tubing with a small towel to lift the weight off of the clavical pressure point. Trach - Perform Trach care per protocol. Cut the Allevyn foam (Storeroom# [id number]) to fit under the trach plate - Place Allevyn non-adhesive foam under trach plate change per protocol. PEG Tube? - Cleanse with NS moist gauze, pat dry.? Apply skin prep to area allow to dry.? Place gauze under bumper.? There should be ? - 1cm of laxity between entry point and the bumper to prevent ulceration.?? Change per protocol. Details from prior assessments: Chart review reveals pt remains critically ill. Per Dr. 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 Many of the patients wounds continue to evolve which is common when Ischemia and Acute Skin Failure are present. Overall his wounds continue to evolve initially they were classified in some cases as pressure injuries however given his current clinical picture these wounds and characteristics are consistent with Ischemia / Acute Skin Failure and thrombocytopenia presentations. Acute Skin Failure can be caused by ischemia secondary to poor perfusion related to septic shock with multiorgan faliure.? The patients ICU stay is marked by septic shock necessitating vasopressors, respiratory failure necessitating ventilatory support. Acute Skin Failure may occur despite the implementation of proper preventative measures.? Etiology - MARSI (Medical Adhesive Related Skin Injury) scattered dried stable scabs - no progression Recommendations: Apply Skin prep allow to dry. Keep free to device and adhesives at this time. Right Groin Wound Bed: two sites with improving thin yellow slough Drainage / Odor: None Edges: ? well defined Idalmis wound:Intact - Moisture noted with in skin fold No Induration, Fluctuance or Warmth noted per direct care nurse Goals of Treatment: ? Durafiber AG and occlusive dressing. Upper Lip Etiology: Friction - scattered areas of scab consistent with friction and not pressure - scab are stable at this time no topical recommendations but to continue with oral care per protocol. Right Groin Wound Bed: two sites with improving yellow slough Drainage / Odor: None Edges: ? well defined Idalmis wound:Intact - Moisture noted with in skin fold No Induration, Fluctuance or Warmth noted per direct care nurse Goals of Treatment: ? Durafiber AG and occlusive dressing. Right Arm purpura resolving. Sacrum Etiology: ??Ischemia vs Acute Skin Failure - Previously documented as Resurfacing - Stage 2 Pressure Injury and DTI Present on Admission Wound Bed: red tissue with adherent yellow slough Edges: ? irregular Goals of Treatment: ? Barrier cream and off load pressure Bilateral Groin / Skin folds - Ischemia vs Acute Skin Failure - Previously documented as MASD Intertrigo (Moisture Associated Skin Damage - base of skin fold open tissue noted currently full thickness tissue loss with adherent yellow slough) - Recommend barrier cream to protect from moisture and friction and aid in autolytic debridement. Left Posterior thigh with bruising noted for hematoma site - providers aware and vascular following. ARNOLD mattress in use - Heel protector boots in place and Q 2 hr turns. wedges at bedside observed. No new topical recommendations needed at this time continue with all current recommendations: Details from previous assessments: Per Dr. Chau Chart details 79 Y M w/ diabetes mellitus, CHF c/b paroxysmal atrial fibrillation, idiopathic pulmonary fibrosis, prostate cancer c/b recurrent ESBL UTI, and recent pneumonia necessitating admission, presenting to emergency department on 10/29 w/ encephalopathy and purulent urine, c/f UTI c/b septic shock; ICU course c/b shock c/b multi-system organ failure including respiratory failure, intubated on 11/01 and continues on pressor support along with thrombocytopenia. Nayan was also seen by Dr. Razo on 11/03/24 and she documented the following based on his right groin wound. 79 year old male multiple med issues in ICU with septic shock treated with pressors and fluids initially via catheter in right groin now switched to the neck- skin breakdown in the groin where the catheter was anchored - due to skin necrosis from tension, edema, moisture and pressor support. Overall his wounds continue to evolve initially they were classified in some cases as pressure injuries however given his current clinical picture these wounds and characteristics are consistent with Ischemia / Acute Skin Failure and thrombocytopenia presentations. Acute Skin Failure can be caused by ischemia secondary to poor perfusion related to septic shock with multiorgan faliure.? The patients ICU stay is marked by septic shock necessitating vasopressors, respiratory failure necessitating ventilatory support. Acute Skin Failure may occur despite the implementation of proper preventative measures.? Most recently his face was noted for injury after Et Tube Mehta was changed. See photo below - The purple maroon pigmentation is not consistent with pressure it is likely related to Acute skin failure vs Thrombocytopenia. Both arms are noted for significant Purpura - see photo below. The Right Cheek is noted to MARSI (Medical Adhesive Related Skin Injury) - the open tissue is scattered and appears to correlate with adhesive and not pressure. Right Cheek Etiology - MARSI (Medical Adhesive Related Skin Injury) scattered open tissue purple areas consistent with purpura lab values reveal thrombocytopenia Recommendations: Apply Skin prep allow to dry. Keep free to device and adhesives at this time. Upper Lip Etiology: Friction - scattered areas of scab consistent with friction and not pressure - scab are stable at this time no topical recomendations but to continue with oral care per protocol. Right Arm with purpura - intact nonblanchable tissue - no topical interventions needed. Left Sacrum Etiology: ??Ischemia vs Acute Skin Failure - Previously documented as Resurfacing - Stage 2 Pressure Injury Present on Admission Wound Bed: red maroon purple tissue with epidermal layer lifting - eschar developing Edges: ? irregular Goals of Treatment: ? Barrier cream and off load pressure Right Sacrum Etiology: ??Ischemia vs Acute Skin Failure - Previously documented as Deep Tissue Injury Present on Admission Wound Bed: red maroon intact nonblanchable tissue Drainage / Odor: None Edges: ? irregular Goals of Treatment: ?barrier cream foam dressing and off load pressure Right Back - continues with Irregular skin pigmentation - not consistent with pressure - remain intact - recommend continue with foam dressing to protect from friction. Bilateral Groin / Skin folds - Ischemia vs Acute Skin Failure - Previously documented as MASD Intertrigo (Moisture Associated Skin Damage - base of skin fold open tissue noted currently appears to be transitioning to eschar) - Recommend barrier cream to protect from moisture and friction and aid in autolytic debridement. Patient is on a ARNOLD mattress, Q2hr turns are documented, preventative foams and heel protector boots are in use along with wedges for off loading pressure. Recommendations: 1. Turn and Reposition every 2 hours and as needed for patient comfort.? Use pillows or wedges to support off loading positions. 2. Off Load all bony prominences with use of pillows and heel boots if needed.? Apply Preventative foams where needed. ? 3. Monitor for incontinence and moisture control, use barrier creams when needed for prevention and treatment. 4. Provide adequate and supplemental nutrition.? 5. Continue low air loss mattress. 6. When applicable maintain blood glucose levels per Providers order. 7. Sacrum - Off Load Pressure with Q2 hr turns and use of pillows - Cleanse with PH balance spray or wipes, pat dry. ?Apply thin layer of Triad to sacrum and buttock - only pat and dab no scrub and rub when soiling occurs. Reapply thin layer PRN after each episode of incontinence. May cover with foam dressing. 8. Right Back - Apply Skin prep allow to dry. Apply foam dressing peel back and assess Q shift and Change every 5 days and PRN. 9. Posterior Groin - Cleanse with Ph balances wipes, pat dry. Apply Barrier cream to groin twice daily and prn for incontinence. 10. Right Anterior Groin: Cleanse with NS moist gauze, pat dry. Apply skin prep to periwound. Cover wound bed with Durafiber AG followed by dry gauze occlusive dressing. Change every other day. Given the area is with in his groin and skin fold monitor for saturation and change PRN. 11. Right Face - Apply Skin prep allow to dry. Do not apply adhesive or device to area. Re-consult wound care Nurse for wound deterioration or wound changes.
[2024-11-21] MEDS: Linezolid/D5W 600 MG/300 ML PIGGYBACK 300 MG IV (17:02)
[2024-11-21 17:36] LABS: Glucose, Whole Blood 195 mg/dL (60-115)
[2024-11-21] MEDS: Meropenem 1 GM VIAL IVPUSH (18:05)
--- NOTE | 2024-11-21 19:12 | PC.NURSE ---
Addendum entered by Lashonda Ridley RN 11/21/24 19:13: venice applied tracheostomy site as recommended by wound nurse. left groin wound redressed with silver alginate and DSD. Original Note: N- patient alert, follows commands at times, traces with eyes at times but not consistently, off sedation >24hours CV- patient continues on Levophed as per MAR, attempted to titrate and patient did not tolerate Pulm- patient very sleepy today, unable to attempt PSV as per provider to try only if patient awake enough to attempt GI- BM noted today x2, tube feeding continues as ordered with water boluses as ordered, prosource as ordered and given . - chronic pickering in place, draining bright yellow urine Turn and repo as tolerated every 2hours to maintain skin integrity, dressing to groin saturated on removal of dressing noted foul smell and drainage, MD made aware, culture to site ordered, collected and sent, US ordered and fluid collection noted, ordered for drain in IR tomorrow, antibiotics ordered and given.
[2024-11-22] VITALS (37 sets, daily range): BP systolic 95–140; BP diastolic 48–71; PULSE 68–114; RESP 11–28; TEMP 34.7–38.2; O2SAT 93–100; BMI 33.0
[2024-11-22 00:34] LABS: Glucose, Whole Blood 173 mg/dL (60-115)
[2024-11-22] MEDS: Meropenem 1 GM VIAL IVPUSH ×3 (00:50→16:58)
[2024-11-22] MEDS: Insulin Lispro 100 UNIT/ML 3 ML VIAL SUBCUT ×4 (00:50→16:56)
[2024-11-22] MEDS: Linezolid/D5W 600 MG/300 ML PIGGYBACK 300 MG IV ×2 (04:00→16:58)
[2024-11-22 04:32] LABS: Venous Blood Gas Refer to POC result
[2024-11-22 04:33] LABS: VBG Base Excess 12.3 mmol/L; VBG HCO3 36 mmol/L (22-26); VBG pCO2 44 mmHg; VBG pH 7.52 (7.32-7.43); VBG pO2 79 mmHg
[2024-11-22 04:36] LABS: MANUAL DIFF FLAG NO
[2024-11-22 04:38] LABS: Basophils Absolute Auto 0.1 X10*3/uL (0.0-0.2); Basophils Percent Auto 0.5 % (0-2); Eosinophils Absolute Auto 0.3 X10*3/uL (0.0-0.4); Eosinophils Percent Auto 2.9 % (0-4); Imm Gran Abs Auto 0.12 X10*3/uL (0.00-0.03); Lymphocytes Absolute Auto 3.9 X10*3/uL (1.2-4.9); Mean Corpuscular HGB Conc 30.8 g/dl (31.0-36.0); Mean Corpuscular Hemoglobin 29.5 pg (27.0-33.0); Mean Corpuscular Volume 95.9 fL (80.0-98.0); Mean Platelet Volume 11.4 fL (9.4-12.4); Monocytes Percent Auto 8.1 % (2-11); Neutrophils Absolute Auto 6.4 x10*3/uL (2.0-8.3); Neutrophils Percent Auto 54.5 % (45-73); Platelet Count 229 X10*3/uL (160-400); Red Blood Count 2.71 X10*6/uL (4.60-5.80); Red Cell Distribution Width 19.4 % (11.0-16.0); White Blood Count 11.8 X10*3/uL (4.8-10.8)
[2024-11-22 04:56] LABS: Alanine Aminotransferase < 6 U/L (0-40); Albumin Level 2.7 g/dL (3.5-5.0); Alkaline Phosphatase 259 U/L (39-117); Anion Gap 12 (12-20); Aspartate Amino Transferase 20 U/L (5-37); Bilirubin Total 0.8 mg/dL (0.0-1.0); Blood Urea Nitrogen 18 mg/dL (9-16); C Reactive Protein 9.29 mg/dL (< or = 0.50); Calcium 8.2 mg/dL (8.4-10.2); Carbon Dioxide 28 mmol/L (22-29); Chloride 101 mmol/L (96-108); Creatinine Clr Calc Pharmacy 135.4; Estimated Glomerular Filt Rate > 60; Glucose Random 186 mg/dL (60-115); Magnesium 2.2 mg/dL (1.6-2.6); Phosphorus 3.4 mg/dL (2.7-4.5); Potassium 4.5 mmol/L (3.3-5.1); Sodium 136 mmol/L (135-145); Total Protein 6.8 g/dL (6.5-8.0)
[2024-11-22] MEDS: 0.9 % Sodium Chloride Flush 3 ML SYRINGE IVFLUSH ×3 (08:32→19:42)
[2024-11-22] MEDS: Chlorhexidine Gluc Oral Rinse 15 ML MOUTHWASH BUCCAL ×3 (08:34→19:38)
[2024-11-22] MEDS: Valproic Acid Liquid 250 MG/5 ML SOLUTION PO ×3 (08:34→19:38)
[2024-11-22] MEDS: HaloperidoL 0.5 MG TABLET PO (08:35)
[2024-11-22] MEDS: Famotidine/PF 20 MG/2 ML VIAL IVPUSH (08:35)
--- NOTE | 2024-11-22 08:46 | PM.CCPN ---
Subjective Subjective Date of Service: 11/22/24 Critical Care Time (minutes): 35 Comment: Continues to be on ventilator support this morning Febrile yesterday, started on antibiotics Physical Exam Vital Signs: Vital Signs: Last Vital Signs Temp 99.3 F 11/22/24 08:00 Pulse 92 11/22/24 08:00 Resp 11 L 11/22/24 08:00 BP 140/60 H 11/22/24 08:00 Pulse Ox 94 11/22/24 08:00 O2 Del Method Mechanical Ventil ation 11/22/24 08:00 O2 Flow Rate 35 11/19/24 16:00 FiO2 35 11/22/24 08:00 Oxygen Flow Rate 15 10/29/24 14:07 BMI result Body Mass Index 33.0 General: Elderly male in acute distress, chronically ill appearing and tired appearing Nutritional Appearance: well nourished and overweight Eyes: appearance normal, both eyes and all related structures; Alignment and Position: alignment normal and position normal Neck: No lymphadenopathy, no thyromegaly Resp: bilateral air entry equal, occasional added sounds present Cardio: Regular rate, regular rhythm; Heart sounds: S1 normal heart sound present and S2 normal heart sound present GI: soft, nontender, no guarding, no hepatosplenomegaly : bladder normal to inspection, bladder normal to palpation, no renal angle tenderness Skin: no rashes or lesions noted and elasticity normal Neuro: No focal deficits, moves all extremities Objective Data Labs 11/22/24 04:20 11/22/24 04:20 Labs: Laboratory Results - last 24 hr 11/21/24 11/21/24 11/22/24 11:26 17:32 00:30 WBC RBC Hgb Hct MCV MCH MCHC RDW Plt Count MPV Immature Gran % (Auto) Neut % (Auto) Lymph % (Auto) [place] % (Auto) Eos % (Auto) Baso % (Auto) Lymph # (Auto) [place] # (Auto) Eos # (Auto) Baso # (Auto) Abs Immat Gran (auto) Absolute Neuts (auto) Absolute Nucleated RBC Nucleated RBC % (auto) VBG pH VBG pCO2 VBG pO2 VBG HCO3 VBG O2 Saturation VBG Base Excess Sodium Potassium Chloride Carbon Dioxide Anion Gap BUN Creatinine Estim Creat Clear Calc Estimated GFR POC Glucose 158 H 195 H 173 H Random Glucose Calcium Phosphorus Magnesium Total Bilirubin AST ALT Alkaline Phosphatase C-Reactive Protein Total Protein Albumin 11/22/24 11/22/24 04:20 04:30 WBC 11.8 H RBC 2.71 L Hgb 8.0 L Hct 26.0 L MCV 95.9 MCH 29.5 MCHC 30.8 L RDW 19.4 H Plt Count 229 MPV 11.4 Immature Gran % (Auto) 1.0 H Neut % (Auto) 54.5 Lymph % (Auto) 33.0 [place] % (Auto) 8.1 Eos % (Auto) 2.9 Baso % (Auto) 0.5 Lymph # (Auto) 3.9 [place] # (Auto) 1.0 Eos # (Auto) 0.3 Baso # (Auto) 0.1 Abs Immat Gran (auto) 0.12 H Absolute Neuts (auto) 6.4 Absolute Nucleated RBC 0.000 Nucleated RBC % (auto) 0.0 VBG pH 7.52 H VBG pCO2 44 VBG pO2 79 VBG HCO3 36 H VBG O2 Saturation Not Reportable VBG Base Excess 12.3 Sodium 136 Potassium 4.5 Chloride 101 Carbon Dioxide 28 Anion Gap 12 BUN 18 H Creatinine 0.52 Estim Creat Clear Calc 135.4 Estimated GFR > 60 POC Glucose Random Glucose 186 H Calcium 8.2 L Phosphorus 3.4 Magnesium 2.2 Total Bilirubin 0.8 AST 20 ALT < 6 Alkaline Phosphatase 259 H C-Reactive Protein 9.29 H Total Protein 6.8 Albumin 2.7 L Microbiology Microbiology Results: Microbiology 11/02/24 09:16 Groin, Right Gram Stain - Final 11/02/24 09:16 Groin, Right Routine Culture - Final Proteus mirabilis So albicans 10/29/24 15:29 Blood - Venous Blood Culture - Final No growth after 5 days. 10/29/24 14:42 Blood - Venous Blood Culture - Final No growth after 5 days. 10/29/24 Unknown Urine Catheterized - Kelly Catheter Urine Culture - Final Escherichia coli Progress Note: A&P Assessment and plan (1) Heart failure with reduced ejection fraction: Status: Acute (2) Persistent atrial fibrillation: Status: Acute (3) Hemorrhagic shock: Status: Acute (4) Non-insulin dependent type 2 diabetes mellitus: Status: Acute (5) Septic shock: Status: Acute (6) Acute encephalopathy: Status: Acute (7) Acute on chronic hypoxic respiratory failure: Status: Acute (8) Acute respiratory failure: Status: Acute (9) Idiopathic pulmonary fibrosis: Status: Acute Plan 79-year-old gentleman with underlying IPF, AFib on anticoagulation, 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 Neuro: Acute encephalopathy possibly due to metabolic encephalopathy from urinary tract infection not on any sedation for several days now, slightly more awake this morning Close neurological status monitoring in the ICU every hour Cardiac: Cardiogenic shock: due to positive pressure ventilation currently on levophed support, will titrate to keep MAP above 65mmHG Paroxysmal atrial fibrillation: possibly in MAT anticoagulation held since hematoma and hemorrhagic shock that has resolved now Continue prophylactic Lovenox, we will hold off on therapeutic Lovenox due to risk bleeding as his groin ultrasound still shows fluid collections which can be blood Respiratory: Acute upon chronic hypoxemic respiratory failure due to idiopathic pulmonary fibrosis and pulmonary edema from heart failure currently status post tracheostomy on 11/15 2024. he is on PRVC 35%, PEEP 5, TV 380, RR 18; pressor support trial as tolerated during the day Ventilator management protocol, chlorhexidine mouthwash, head elevation, daily awakening trials GI: status post gastrostomy tube placement on 11/15/2024 continue tube feeds Renal: Normal renal function will add lasix 40mg daily as he is 3L net positive and slight edematous We will closely monitor I's and O's Avoid nephrotoxic medications Heme: Chronic anemia, closely monitor H&H, transfuse for hemoglobin less than 7 grams/deciliter hemoglobin stable 8.0 this morning Endocrine: Blood sugars under control on sliding scale as needed Sliding scale insulin as needed Infectious disease: Urine cultures positive for ESBL, blood cultures negative upon admission treated with meropenem also treated with vancomycin for skin site infection Musculoskeletal: Decubitus ulcer prevention protocol stage 2 left sacrum Lines: Triple lumen PICC left brachial Chronic Kelly Prophylaxis: Lovenox held for possible IR drainage this morning, famotidine Quality Stroke Does the patient have a stroke diagnosis?: No VTE Prior VTE?: No VTE Risk Level:: Medical - moderate - high VTE Device Contraindication: N/A - Device Ordered VTE Drug Contraindication: Treatment Not Tolerated
--- NOTE | 2024-11-22 10:04 | PM.PROC ---
Brief Operative Note Date of procedure: 11/22/24 Pre-op diagnosis: Fever, left groin/thigh fluid collection Post-op diagnosis: same Procedure: US drainage of left groin fluid collection 10 fr drain placed. 120 cc dark non-clotting blood tinged fluid removed and sent for culture.
[2024-11-22] MEDS: Furosemide 40 MG/4 ML VIAL IVPUSH (10:47)
[2024-11-22] MEDS: Lidocaine HCl 1 % MPF 5 ML VIAL SUBCUT (11:07)
--- NOTE | 2024-11-22 11:37 | MHC.CLN ---
F/U DISCUSSED AT ROUNDS WITH RECEIVING GLUCERNA 1.0 AT MAX GOAL RATE 90ML/HR WITH 30ML PROSOURCE X1 PER DAY AND 120ML FREE WATER FLUSHES Q 8 HRS PROVIDES 2220KCALS (30KCALS/KG IBW), 105G TOTAL PROTEIN (1.4G/KG IBW), 2202ML TOTAL FREE WATER FROM FORMULA AND FLUSHES (30ML/KG IBW) TOLERATING WELL PER NSG AND TF WILL PROMOTE WOUND HEALING CONITNUE TO MONITOR TOLERANCE AND LYTES
[2024-11-22 11:57] LABS: Glucose, Whole Blood 152 mg/dL (60-115)
[2024-11-22] MEDS: Enoxaparin Sodium 40 MG/0.4 ML SYRINGE SUBCUT (13:00)
--- NOTE | 2024-11-22 14:38 | HO.WOUND ---
Wound Consult: Follow up 79yr old?male admitted to [facility] on 10/29/24 - See progress notes and H&P for detailed history.? Wound consult follow up Trach site. The Trach site continues with redness there is a great deal of pressure on the clavicle under the plate - small towel added under Vent tubing to lift Trach plate off of clavicle. The Allevyn foam nonadhesive foam was in place - this global technical writer ordered a new box and given to ICU Educator. No new topical orders needed at this time. continue to off load Vent tubing with small towel roll continue to use foam dressing under Trach to redistribute pressure. Details from previous assessment: The patient has had a trach and PEG placement by Dr. Solorzano and on 11/15/24. The right cheek and lip are resolving - small dried stable scab noted to right cheek the lip has resolved / resurfaced no injury noted at this time. The right groin continues to improve little slough with smaller openings noted. The abdominal skin fold continued with intertrigo Durafiber and Interdry in use. Given size to left abdomen Durafiber is used. The buttock and perineal area was not assessed today. The Peg site has some MASD in the peristomal area - scant yellow slough noted - they bumper was tight to his skin with little room. Loosened and cleansed and gauze applied. The Trach site appears tight. Per direct care nurse the trach sutures were removed but was advised to not loosen the trach ties due to there being a short Trach tube in place per Dr. Solorzano and can not be replaced with a longer tube until 10days - 10/28/24. There is concern for Device related pressure injury development. current tissue is red pink and blanchable and intact. But the trach plate does sit on the clavicle bones. The areas was cleansed and new gauze applied Allevyn Classic non-adhesive foam recommended not available at this time unit to order from storeroom # [id number]. In addition recommend off loading the Trach tubing with a small towel to lift the weight off of the clavical pressure point. Trach - Perform Trach care per protocol. Cut the Allevyn foam (Storeroom# [id number]) to fit under the trach plate - Place Allevyn non-adhesive foam under trach plate change per protocol. PEG Tube? - Cleanse with NS moist gauze, pat dry.? Apply skin prep to area allow to dry.? Place gauze under bumper.? There should be ? - 1cm of laxity between entry point and the bumper to prevent ulceration.?? Change per protocol. Details from prior assessments: Chart review reveals pt remains critically ill. Per Dr. 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 Many of the patients wounds continue to evolve which is common when Ischemia and Acute Skin Failure are present. Overall his wounds continue to evolve initially they were classified in some cases as pressure injuries however given his current clinical picture these wounds and characteristics are consistent with Ischemia / Acute Skin Failure and thrombocytopenia presentations. Acute Skin Failure can be caused by ischemia secondary to poor perfusion related to septic shock with multiorgan faliure.? The patients ICU stay is marked by septic shock necessitating vasopressors, respiratory failure necessitating ventilatory support. Acute Skin Failure may occur despite the implementation of proper preventative measures.? Etiology - MARSI (Medical Adhesive Related Skin Injury) scattered dried stable scabs - no progression Recommendations: Apply Skin prep allow to dry. Keep free to device and adhesives at this time. Right Groin Wound Bed: two sites with improving thin yellow slough Drainage / Odor: None Edges: ? well defined Idalmis wound:Intact - Moisture noted with in skin fold No Induration, Fluctuance or Warmth noted per direct care nurse Goals of Treatment: ? Durafiber AG and occlusive dressing. Upper Lip Etiology: Friction - scattered areas of scab consistent with friction and not pressure - scab are stable at this time no topical recommendations but to continue with oral care per protocol. Right Groin Wound Bed: two sites with improving yellow slough Drainage / Odor: None Edges: ? well defined Idalmis wound:Intact - Moisture noted with in skin fold No Induration, Fluctuance or Warmth noted per direct care nurse Goals of Treatment: ? Durafiber AG and occlusive dressing. Right Arm purpura resolving. Sacrum Etiology: ??Ischemia vs Acute Skin Failure - Previously documented as Resurfacing - Stage 2 Pressure Injury and DTI Present on Admission Wound Bed: red tissue with adherent yellow slough Edges: ? irregular Goals of Treatment: ? Barrier cream and off load pressure Bilateral Groin / Skin folds - Ischemia vs Acute Skin Failure - Previously documented as MASD Intertrigo (Moisture Associated Skin Damage - base of skin fold open tissue noted currently full thickness tissue loss with adherent yellow slough) - Recommend barrier cream to protect from moisture and friction and aid in autolytic debridement. Left Posterior thigh with bruising noted for hematoma site - providers aware and vascular following. ARNOLD mattress in use - Heel protector boots in place and Q 2 hr turns. wedges at bedside observed. No new topical recommendations needed at this time continue with all current recommendations: Details from previous assessments: Per Dr. Chau Chart details 79 Y M w/ diabetes mellitus, CHF c/b paroxysmal atrial fibrillation, idiopathic pulmonary fibrosis, prostate cancer c/b recurrent ESBL UTI, and recent pneumonia necessitating admission, presenting to emergency department on 10/29 w/ encephalopathy and purulent urine, c/f UTI c/b septic shock; ICU course c/b shock c/b multi-system organ failure including respiratory failure, intubated on 11/01 and continues on pressor support along with thrombocytopenia. Nayan was also seen by Dr. Razo on 11/03/24 and she documented the following based on his right groin wound. 79 year old male multiple med issues in ICU with septic shock treated with pressors and fluids initially via catheter in right groin now switched to the neck- skin breakdown in the groin where the catheter was anchored - due to skin necrosis from tension, edema, moisture and pressor support. Overall his wounds continue to evolve initially they were classified in some cases as pressure injuries however given his current clinical picture these wounds and characteristics are consistent with Ischemia / Acute Skin Failure and thrombocytopenia presentations. Acute Skin Failure can be caused by ischemia secondary to poor perfusion related to septic shock with multiorgan faliure.? The patients ICU stay is marked by septic shock necessitating vasopressors, respiratory failure necessitating ventilatory support. Acute Skin Failure may occur despite the implementation of proper preventative measures.? Most recently his face was noted for injury after Et Tube Mehta was changed. See photo below - The purple maroon pigmentation is not consistent with pressure it is likely related to Acute skin failure vs Thrombocytopenia. Both arms are noted for significant Purpura - see photo below. The Right Cheek is noted to MARSI (Medical Adhesive Related Skin Injury) - the open tissue is scattered and appears to correlate with adhesive and not pressure. Right Cheek Etiology - MARSI (Medical Adhesive Related Skin Injury) scattered open tissue purple areas consistent with purpura lab values reveal thrombocytopenia Recommendations: Apply Skin prep allow to dry. Keep free to device and adhesives at this time. Upper Lip Etiology: Friction - scattered areas of scab consistent with friction and not pressure - scab are stable at this time no topical recomendations but to continue with oral care per protocol. Right Arm with purpura - intact nonblanchable tissue - no topical interventions needed. Left Sacrum Etiology: ??Ischemia vs Acute Skin Failure - Previously documented as Resurfacing - Stage 2 Pressure Injury Present on Admission Wound Bed: red maroon purple tissue with epidermal layer lifting - eschar developing Edges: ? irregular Goals of Treatment: ? Barrier cream and off load pressure Right Sacrum Etiology: ??Ischemia vs Acute Skin Failure - Previously documented as Deep Tissue Injury Present on Admission Wound Bed: red maroon intact nonblanchable tissue Drainage / Odor: None Edges: ? irregular Goals of Treatment: ?barrier cream foam dressing and off load pressure Right Back - continues with Irregular skin pigmentation - not consistent with pressure - remain intact - recommend continue with foam dressing to protect from friction. Bilateral Groin / Skin folds - Ischemia vs Acute Skin Failure - Previously documented as MASD Intertrigo (Moisture Associated Skin Damage - base of skin fold open tissue noted currently appears to be transitioning to eschar) - Recommend barrier cream to protect from moisture and friction and aid in autolytic debridement. Patient is on a ARNOLD mattress, Q2hr turns are documented, preventative foams and heel protector boots are in use along with wedges for off loading pressure. Recommendations: 1. Turn and Reposition every 2 hours and as needed for patient comfort.? Use pillows or wedges to support off loading positions. 2. Off Load all bony prominences with use of pillows and heel boots if needed.? Apply Preventative foams where needed. ? 3. Monitor for incontinence and moisture control, use barrier creams when needed for prevention and treatment. 4. Provide adequate and supplemental nutrition.? 5. Continue low air loss mattress. 6. When applicable maintain blood glucose levels per Providers order. 7. Sacrum - Off Load Pressure with Q2 hr turns and use of pillows - Cleanse with PH balance spray or wipes, pat dry. ?Apply thin layer of Triad to sacrum and buttock - only pat and dab no scrub and rub when soiling occurs. Reapply thin layer PRN after each episode of incontinence. May cover with foam dressing. 8. Right Back - Apply Skin prep allow to dry. Apply foam dressing peel back and assess Q shift and Change every 5 days and PRN. 9. Posterior Groin - Cleanse with Ph balances wipes, pat dry. Apply Barrier cream to groin twice daily and prn for incontinence. 10. Right Anterior Groin: Cleanse with NS moist gauze, pat dry. Apply skin prep to periwound. Cover wound bed with Durafiber AG followed by dry gauze occlusive dressing. Change every other day. Given the area is with in his groin and skin fold monitor for saturation and change PRN. 11. Right Face - Apply Skin prep allow to dry. Do not apply adhesive or device to area. Re-consult wound care Nurse for wound deterioration or wound changes.
--- NOTE | 2024-11-22 14:53 | MHC.CM.PN ---
Pt continues care in ICU : s/p Peg /trach on 11/15: no trach trials at this time: pt is having difficulty w/PSV settings: clinical updates remitted to [facility]. [facility] [place] needs [facility] application completed. Call placed to [facility]: message left w/business office to inquire on pt's LTC payor status. Pts son not cooperative with inquiry from [facility] financial. CM to follow
[2024-11-22 16:58] LABS: Glucose, Whole Blood 167 mg/dL (60-115)
--- NOTE | 2024-11-22 19:02 | PC.NURSE ---
Assumed care of patient 0700 Pt remains without sedation, eyes open, alert. A+Ox1, nods yes/no to some questions. Pt passed 2 large bowel movements this shift 09:00 MD started PSV trial, 15/5.0, 35%. Pt RR increased to 35-40 within first minute. Vent settings changed back to ACVC+, see vent assessment Plan for IR bedside procedure for placement of JT drain to left groin hematoma site. Time out performed. Drain placed and initial drainage was 225 ml dark red fluid. 12:00 pt trialed on trach collor by RT. RR increased again, pt appeared in discomfort. Vent reconnected to trach with ACVC+ settings Pt provided full bed bath with CHG wipes, dressings changed to b/l groin folds, left femoral surgical site. Pt titrated off of levophed at end of shift. 18:00 patient did not require vasopressor medications. high fall precautions in place, pt repositoned Q2HR, isotour bed used
[2024-11-22] MEDS: Acetaminophen 325 MG TABLET 650 MG PO (19:38)
[2024-11-22] MEDS: HYDROmorphone HCl 0.5 MG/0.5 ML SYRINGE IVPUSH (22:01)
[2024-11-22 23:14] LABS: Glucose, Whole Blood 148 mg/dL (60-115)
[2024-11-23] VITALS (41 sets, daily range): BP systolic 89–117; BP diastolic 44–67; PULSE 60–106; RESP 14–92; TEMP 34.8–37.9; O2SAT 92–100; BMI 33.4
[2024-11-23] MEDS: Albumin Human 25 % 100 ML 133.33 ML IV ×2 (00:15→01:03)
[2024-11-23] MEDS: Meropenem 1 GM VIAL IVPUSH ×3 (00:16→16:31)
[2024-11-23] MEDS: Norepinephrine Bitartrate/D5W 8 MG/250 ML PLAST..BAG 9.03 MG IVCONT (01:48)
[2024-11-23] MEDS: Linezolid/D5W 600 MG/300 ML PIGGYBACK 300 MG IV ×2 (04:04→16:31)
[2024-11-23 04:37] LABS: VBG Base Excess 14.5 mmol/L; VBG HCO3 37 mmol/L (22-26); VBG pCO2 40 mmHg; VBG pH 7.57 (7.32-7.43); VBG pO2 52 mmHg
[2024-11-23 04:38] LABS: MANUAL DIFF FLAG NO
[2024-11-23 04:39] LABS: Basophils Absolute Auto 0.1 X10*3/uL (0.0-0.2); Basophils Percent Auto 0.6 % (0-2); Eosinophils Absolute Auto 0.3 X10*3/uL (0.0-0.4); Eosinophils Percent Auto 3.1 % (0-4); Hematocrit 23.3 % (42.0-52.0); Hemoglobin 7.2 g/dl (14.0-18.0); Lymphocytes Absolute Auto 3.7 X10*3/uL (1.2-4.9); Lymphocytes Percent Auto 35.5 % (20-40); Mean Corpuscular HGB Conc 30.9 g/dl (31.0-36.0); Mean Corpuscular Hemoglobin 29.4 pg (27.0-33.0); Mean Corpuscular Volume 95.1 fL (80.0-98.0); Mean Platelet Volume 11.7 fL (9.4-12.4); Monocytes Absolute Auto 0.8 X10*3/uL (0.1-1.2); Monocytes Percent Auto 7.9 % (2-11); Neutrophils Absolute Auto 5.4 x10*3/uL (2.0-8.3); Neutrophils Percent Auto 51.9 % (45-73); Platelet Count 201 X10*3/uL (160-400); Red Blood Count 2.45 X10*6/uL (4.60-5.80); Red Cell Distribution Width 18.9 % (11.0-16.0); White Blood Count 10.4 X10*3/uL (4.8-10.8)
[2024-11-23 04:45] LABS: Venous Blood Gas Refer to POC result
[2024-11-23 05:04] LABS: Alanine Aminotransferase < 6 U/L (0-40); Albumin Level 3.1 g/dL (3.5-5.0); Alkaline Phosphatase 226 U/L (39-117); Anion Gap 12 (12-20); Aspartate Amino Transferase 23 U/L (5-37); Bilirubin Total 1.1 mg/dL (0.0-1.0); Blood Urea Nitrogen 20 mg/dL (9-16); Calcium 8.5 mg/dL (8.4-10.2); Carbon Dioxide 29 mmol/L (22-29); Chloride 99 mmol/L (96-108); Creatinine Clr Calc Pharmacy 132.3; Estimated Glomerular Filt Rate > 60; Glucose Random 138 mg/dL (60-115); Magnesium 2.1 mg/dL (1.6-2.6); Phosphorus 3.5 mg/dL (2.7-4.5); Sodium 136 mmol/L (135-145); Total Protein 6.8 g/dL (6.5-8.0)
--- NOTE | 2024-11-23 06:16 | PC.NURSE ---
Assumed care at 1900, pt alert and arousable to name, following commands at times. Pt with increased restlessness and vent dyssynchrony, nonverbal pain score 5. Medicated with prn dilaudid with good effect - see NOV. MAPs <65 - levophed restarted per NOV.? Kept NPO at 0000 for procedure per CONNIE Brown. R groin dsg c/d/i, TJ drain with serosanguineous?drainage - total output 60 ml.?
[2024-11-23] MEDS: 0.9 % Sodium Chloride Flush 3 ML SYRINGE IVFLUSH ×2 (07:08→14:32)
[2024-11-23] MEDS: Furosemide 40 MG/4 ML VIAL IVPUSH (08:10)
[2024-11-23] MEDS: Chlorhexidine Gluc Oral Rinse 15 ML MOUTHWASH BUCCAL ×3 (08:10→20:58)
[2024-11-23] MEDS: Famotidine/PF 20 MG/2 ML VIAL IVPUSH (08:10)
[2024-11-23] MEDS: HYDROmorphone HCl 0.5 MG/0.5 ML SYRINGE IVPUSH (08:31)
--- NOTE | 2024-11-23 08:36 | PM.CCPN ---
Subjective Subjective Date of Service: 11/23/24 Critical Care Time (minutes): 35 Comment: Continues to be on ventilator support on levophed for vassopressor support Physical Exam Vital Signs: Vital Signs: Last Vital Signs Temp 99.3 F 11/23/24 08:00 Pulse 82 11/23/24 08:00 Resp 15 11/23/24 08:00 BP 107/58 L 11/23/24 08:00 Pulse Ox 95 11/23/24 08:00 O2 Del Method Mechanical Ventil ation 11/23/24 08:00 O2 Flow Rate 35 11/19/24 16:00 FiO2 35 11/23/24 08:00 Oxygen Flow Rate 15 10/29/24 14:07 BMI result Body Mass Index 33.4 General: Elderly male in acute distress, chronically ill and tired appearing, lying in the bed connected to the vent through tracheostomy Nutritional Appearance: well nourished and overweight Eyes: appearance normal, both eyes and all related structures; Alignment and Position: alignment normal and position normal Neck: No lymphadenopathy, no thyromegaly Resp: bilateral air entry equal, occasional added sounds present Cardio: Regular rate, regular rhythm; Heart sounds: S1 normal heart sound present and S2 normal heart sound present GI: soft, nontender, no guarding, no hepatosplenomegaly : bladder normal to inspection, bladder normal to palpation, no renal angle tenderness Skin: no rashes or lesions noted and elasticity normal Neuro: o opens eyes but does not follow commands, moves some extremities Objective Data Labs 11/23/24 04:22 11/23/24 04:22 Labs: Laboratory Results - last 24 hr 11/22/24 11/22/24 11/22/24 11:44 16:49 23:09 WBC RBC Hgb Hct MCV MCH MCHC RDW Plt Count MPV Immature Gran % (Auto) Neut % (Auto) Lymph % (Auto) [place] % (Auto) Eos % (Auto) Baso % (Auto) Lymph # (Auto) [place] # (Auto) Eos # (Auto) Baso # (Auto) Abs Immat Gran (auto) Absolute Neuts (auto) Absolute Nucleated RBC Nucleated RBC % (auto) VBG pH VBG pCO2 VBG pO2 VBG HCO3 VBG O2 Saturation VBG Base Excess Sodium Potassium Chloride Carbon Dioxide Anion Gap BUN Creatinine Estim Creat Clear Calc Estimated GFR POC Glucose 152 H 167 H 148 H Random Glucose Calcium Phosphorus Magnesium Total Bilirubin AST ALT Alkaline Phosphatase Total Protein Albumin 11/23/24 11/23/24 04:22 04:32 WBC 10.4 RBC 2.45 L Hgb 7.2 L Hct 23.3 L MCV 95.1 MCH 29.4 MCHC 30.9 L RDW 18.9 H Plt Count 201 MPV 11.7 Immature Gran % (Auto) 1.0 H Neut % (Auto) 51.9 Lymph % (Auto) 35.5 Limestone % (Auto) 7.9 Eos % (Auto) 3.1 Baso % (Auto) 0.6 Lymph # (Auto) 3.7 [place] # (Auto) 0.8 Eos # (Auto) 0.3 Baso # (Auto) 0.1 Abs Immat Gran (auto) 0.10 H Absolute Neuts (auto) 5.4 Absolute Nucleated RBC 0.000 Nucleated RBC % (auto) 0.0 VBG pH 7.57 H VBG pCO2 40 VBG pO2 52 VBG HCO3 37 H VBG O2 Saturation 85.0 VBG Base Excess 14.5 Sodium 136 Potassium 4.0 Chloride 99 Carbon Dioxide 29 Anion Gap 12 BUN 20 H Creatinine 0.54 Estim Creat Clear Calc 132.3 Estimated GFR > 60 POC Glucose Random Glucose 138 H Calcium 8.5 Phosphorus 3.5 Magnesium 2.1 Total Bilirubin 1.1 H AST 23 ALT < 6 Alkaline Phosphatase 226 H Total Protein 6.8 Albumin 3.1 L Microbiology Microbiology Results: Microbiology 11/21/24 16:36 Groin Gram Stain - Final 11/21/24 16:36 Groin Routine Culture - Preliminary Gram negative oswald 11/22/24 10:00 Groin, Left Gram Stain - Final 11/02/24 09:16 Groin, Right Gram Stain - Final 11/02/24 09:16 Groin, Right Routine Culture - Final Proteus mirabilis So albicans 10/29/24 15:29 Blood - Venous Blood Culture - Final No growth after 5 days. 10/29/24 14:42 Blood - Venous Blood Culture - Final No growth after 5 days. 10/29/24 Unknown Urine Catheterized - Kelly Catheter Urine Culture - Final Escherichia coli Progress Note: A&P Assessment and plan (1) Heart failure with reduced ejection fraction: Status: Acute (2) Persistent atrial fibrillation: Status: Acute (3) Hemorrhagic shock: Status: Acute (4) UTI due to extended-spectrum beta lactamase (ESBL) producing Escherichia coli: Status: Acute (5) UTI (urinary tract infection): Status: Acute (6) Metabolic alkalosis: Status: Acute (7) Metabolic encephalopathy: Status: Acute (8) Idiopathic pulmonary fibrosis: Status: Acute (9) Acute on chronic hypoxic respiratory failure: Status: Acute Plan 79-year-old gentleman with underlying IPF, AFib on anticoagulation, 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 Neuro: Acute encephalopathy possibly due to metabolic encephalopathy from urinary tract infection not on any sedation for several days now, opens eyes and Close neurological status monitoring in the ICU every hour Cardiac: Cardiogenic shock: due to positive pressure ventilation currently on levophed support, will titrate to keep MAP above 65mmHG Paroxysmal atrial fibrillation: possibly in MAT vs frequent PACs anticoagulation held since hematoma and hemorrhagic shock that has resolved now Continue prophylactic Lovenox, we will hold off on therapeutic Lovenox due to risk bleeding Respiratory: Acute upon chronic hypoxemic respiratory failure due to idiopathic pulmonary fibrosis and pulmonary edema from heart failure currently status post tracheostomy on 11/15 2024. he is on PRVC 35%, PEEP 5, TV 380, RR 18; pressor support trial as tolerated during the day Ventilator management protocol, chlorhexidine mouthwash, head elevation, daily awakening trials episodes of desaturations with significant leak from the trach, emergent bronchoscopy was done to look for the placement of trach which looked to be close to right main stem, so switched to 8.5 shiley following which leak has improved GI: status post gastrostomy tube placement on 11/15/2024 continue tube feeds Renal: Normal renal function Continue lasix 40mg daily as he is 3L net positive and slight edematous We will closely monitor I's and O's Avoid nephrotoxic medications Heme: Chronic anemia, closely monitor H&H, transfuse for hemoglobin less than 7 grams/deciliter hemoglobin 7.2 this morning Endocrine: Blood sugars under control on sliding scale as needed Sliding scale insulin as needed Infectious disease: Urine cultures positive for ESBL, blood cultures negative upon admission treated with meropenem also treated with vancomycin for skin site infection Groin wound growing Gram-negative rods, on meropenem and Zyvox, we will deescalate the antibiotics once we have the final report on the cultures Musculoskeletal: Decubitus ulcer prevention protocol stage 2 left sacrum Lines: Triple lumen PICC left brachial Chronic Kelly Prophylaxis: Lovenox, famotidine Quality Stroke Does the patient have a stroke diagnosis?: No VTE Prior VTE?: No VTE Risk Level:: Medical - moderate - high VTE Device Contraindication: N/A - Device Ordered VTE Drug Contraindication: Treatment Not Tolerated
--- NOTE | 2024-11-23 08:38 | PM.PNTS ---
Subjective Subjective Date of Service: 11/23/24 Interval history: POD #8 s/p trach and PEG tube placement. Has had increasing cuff leak and lower tidal volumes, higher respiratory rate. ICU requesting trach change. Physical Exam Vital Signs: Vital Signs: Last Vital Signs Temp 99.3 F 11/23/24 08:00 Pulse 82 11/23/24 08:00 Resp 15 11/23/24 08:00 BP 107/58 L 11/23/24 08:00 Pulse Ox 95 11/23/24 08:00 O2 Del Method Mechanical Ventil ation 11/23/24 08:00 O2 Flow Rate 35 11/19/24 16:00 FiO2 35 11/23/24 08:00 Oxygen Flow Rate 15 10/29/24 14:07 BMI result Body Mass Index 33.4 Const: General: no acute distress Neck: Other: trach in place, leak noted Resp: Other: on vent Effort & Inspection: no respiratory distress Procedures Date of Service Date of Service: 11/23/24 Arterial Line Size (Gauge): 20 Progress Note: A&P Assessment and plan (1) Tracheostomy in place: Status: Acute (2) Encounter for tracheostomy tube change: Status: Acute Plan ICU requesting trach change due to worsening cuff leak. Current trach cuff deflated, trach cannulated with 14F red rubber catheter and old tracheostomy tube removed. New bivona 7 then thredded onto red rubber catheter and into tract uneventfully. Cuff inflated. Good tidal volumes noted by respiratory. We were subsequently called back a few minutes later as they were not obtaining any volumes on the vent. Patient was stable. Patient was bronched by the ICU provider which revealed thetrach was endotracheal and cuff intact. Cuff was deflated and bronch advanced passed the cuff which showed the end of trach in the right mainstem or just proximal to mariana. Team therefore decided to exchange trach for shorter size. The current trach cuff deflated, trach cannulated with 12F red rubber catheter and old tracheostomy tube removed. New shiley 8.5 trach was then thredded onto the red rubber catheter and into tract uneventfully. Cuff inflated. Good tidal volumes, no leak noted. Time Spent With Patient Time: Total time managing care of this patient today ____ minutes. Quality Stroke Does the patient have a stroke diagnosis?: No VTE Prior VTE?: No VTE Risk Level:: Medical - moderate - high VTE Device Contraindication: N/A - Device Ordered VTE Drug Contraindication: Treatment Not Tolerated
[2024-11-23] MEDS: Valproic Acid Liquid 250 MG/5 ML SOLUTION PO ×3 (08:39→20:59)
[2024-11-23] MEDS: Enoxaparin Sodium 40 MG/0.4 ML SYRINGE SUBCUT (08:40)
--- NOTE | 2024-11-23 09:55 | PC.RT ---
08:30 this am Thoracic surgical team came at the ICU's request for a trach change on this pt with a noted leak at 50cm2o cuff pressures. The 8.0 shiley was removed over a catheter and a 7 portex TTs was introduced easily by and the thoracic team with out trauma. Upon inflating the cuff with sterile h2o and excess of 80 cmh20 of pressure was needed to maintain part of the VT. An aubdble leak was noted and vt 200ml were noted. At this time ICU attending and Dr. Beckford requested a bronchoscopy to visualize the airway. It was decided that the7 portex may be too close if not at the tip of the R mainstem. At this time a 8.5 cuffed shiley was introduced over a catheter by Dr. Solorzano and the thoracic team without resistance or trauma. The airway was sealed and volumes restored.A noted cuff manometer pressure to achieve the seal was 40 cmh20, MD aware. The patient matt this procedure well.
--- NOTE | 2024-11-23 10:54 | W.PM.CCHP ---
Procedures Date of Service Date of Service: 11/23/24 Arterial Line Size (Gauge): 20 Bronchoscopy Bronchoscopy Comments: Patient had leak around the tracheostomy leading to poor ventilator volumes and desaturation needing emergent bronchoscopy to evaluate the cause Consent for Procedure: Emergent-no informed consent obtained Indication: other Procedure: Bronchoscope was passed through oral cavity, vallecula and down through the vocal cords. Trach cuff were noted to be inflated sufficiently around the trachea. Later bronchoscope was passed through tracheostomy, the tip of the tracheostomy tube was too close to mariana. Route: oral Sedation/Analgesia: midazolam Monitor: EKG Complications: none
[2024-11-23 11:36] LABS: Glucose, Whole Blood 165 mg/dL (60-115)
[2024-11-23] MEDS: Insulin Lispro 100 UNIT/ML 3 ML VIAL SUBCUT ×2 (11:38→17:13)
--- NOTE | 2024-11-23 13:00 | HO.WOUND ---
Wound Consult: Follow up 79yr old?male admitted to [facility] on 10/29/24 - See progress notes and H&P for detailed history.? Wound consult follow up Trach site. The Trach site continues with redness however the Trach ties have been loosened and the plate is not applying excess pressure to the clavicle at the time of my assessment. The tissue remains intact and blanchable there is some MASD noted to the area. Given the proper placement of Trach plate the Tubing is adding less pressure and the foam dressing can fit well underneath the plate - will continue to monitor for skin integrity but at this time significant improvement noted to the trach and plate on clavicle area. No new topical orders needed at this time. continue to off load Vent tubing with small towel roll continue to use foam dressing under Trach to redistribute pressure.
[2024-11-23 17:14] LABS: Glucose, Whole Blood 166 mg/dL (60-115)
[2024-11-23] MEDS: Norepinephrine Bitartrate/D5W 8 MG/250 ML PLAST..BAG 12.64 MG IVCONT (17:59)
--- NOTE | 2024-11-23 18:04 | PC.NURSE ---
Assumed care at 0700. Trach switched out for larger size by Dr Solorzano @ bedside - medicated per MAR. Patient continues to require vent support. Care ongoing.
[2024-11-23 23:37] LABS: Glucose, Whole Blood 145 mg/dL (60-115)
[2024-11-24] VITALS (40 sets, daily range): BP systolic 93–128; BP diastolic 40–73; PULSE 70–109; RESP 15–31; TEMP 34.8–38.1; O2SAT 93–100; BMI 33.4
[2024-11-24] MEDS: 0.9 % Sodium Chloride Flush 3 ML SYRINGE IVFLUSH ×3 (00:02→18:13)
[2024-11-24] MEDS: Meropenem 1 GM VIAL IVPUSH ×3 (00:02→18:14)
[2024-11-24] MEDS: Linezolid/D5W 600 MG/300 ML PIGGYBACK 300 MG IV (04:52)
[2024-11-24 05:29] LABS: VBG Base Excess 14.4 mmol/L; VBG HCO3 38 mmol/L (22-26); VBG pCO2 47 mmHg; VBG pH 7.52 (7.32-7.43); VBG pO2 71 mmHg
[2024-11-24 05:35] LABS: MANUAL DIFF FLAG NO
[2024-11-24 05:37] LABS: Basophils Absolute Auto 0.1 X10*3/uL (0.0-0.2); Basophils Percent Auto 0.6 % (0-2); Eosinophils Absolute Auto 0.3 X10*3/uL (0.0-0.4); Eosinophils Percent Auto 2.9 % (0-4); Hematocrit 26.8 % (42.0-52.0); Hemoglobin 8.3 g/dl (14.0-18.0); Imm Gran Abs Auto 0.11 X10*3/uL (0.00-0.03); Imm Gran Pct Auto 1.1 % (0.0-0.4); Lymphocytes Absolute Auto 3.1 X10*3/uL (1.2-4.9); Lymphocytes Percent Auto 30.8 % (20-40); Mean Corpuscular Hemoglobin 29.1 pg (27.0-33.0); Mean Platelet Volume 11.2 fL (9.4-12.4); Monocytes Absolute Auto 0.9 X10*3/uL (0.1-1.2); Monocytes Percent Auto 9.2 % (2-11); Neutrophils Absolute Auto 5.5 x10*3/uL (2.0-8.3); Neutrophils Percent Auto 55.4 % (45-73); Platelet Count 244 X10*3/uL (160-400); Red Blood Count 2.85 X10*6/uL (4.60-5.80); Red Cell Distribution Width 18.6 % (11.0-16.0); White Blood Count 9.9 X10*3/uL (4.8-10.8)
[2024-11-24 05:39] LABS: Glucose, Whole Blood 182 mg/dL (60-115)
[2024-11-24 05:47] LABS: Venous Blood Gas Refer to POC result
[2024-11-24 06:02] LABS: Alkaline Phosphatase 259 U/L (39-117)
[2024-11-24 06:05] LABS: Alanine Aminotransferase < 6 U/L (0-40); Albumin Level 2.8 g/dL (3.5-5.0); Anion Gap 10 (12-20); Aspartate Amino Transferase 26 U/L (5-37); Bilirubin Total 0.7 mg/dL (0.0-1.0); Blood Urea Nitrogen 16 mg/dL (9-16); Calcium 8.6 mg/dL (8.4-10.2); Carbon Dioxide 33 mmol/L (22-29); Chloride 98 mmol/L (96-108); Creatinine Clr Calc Pharmacy 138.1; Estimated Glomerular Filt Rate > 60; Glucose Random 175 mg/dL (60-115); Phosphorus 3.4 mg/dL (2.7-4.5); Potassium 3.7 mmol/L (3.3-5.1); Sodium 137 mmol/L (135-145); Total Protein 6.9 g/dL (6.5-8.0)
[2024-11-24] MEDS: Insulin Lispro 100 UNIT/ML 3 ML VIAL SUBCUT ×2 (06:26→12:22)
[2024-11-24] MEDS: Furosemide 40 MG/4 ML VIAL IVPUSH ×2 (08:04→18:14)
[2024-11-24] MEDS: Enoxaparin Sodium 40 MG/0.4 ML SYRINGE SUBCUT (08:05)
[2024-11-24] MEDS: Valproic Acid Liquid 250 MG/5 ML SOLUTION PO ×3 (08:05→21:43)
[2024-11-24] MEDS: Chlorhexidine Gluc Oral Rinse 15 ML MOUTHWASH BUCCAL ×3 (08:05→21:42)
[2024-11-24] MEDS: Famotidine/PF 20 MG/2 ML VIAL IVPUSH (08:24)
--- NOTE | 2024-11-24 08:36 | PM.CCPN ---
Subjective Subjective Date of Service: 11/24/24 Critical Care Time (minutes): 35 Comment: No new events overnight No significant changes in his overall clinical status Remains on ventilator support Physical Exam Vital Signs: Vital Signs: Last Vital Signs Temp 100.2 F 11/24/24 08:00 Pulse 79 11/24/24 08:08 Resp 19 11/24/24 08:00 BP 110/50 L 11/24/24 08:08 Pulse Ox 95 11/24/24 08:00 O2 Del Method Large Bore Nasal Cannula 11/24/24 08:00 O2 Flow Rate 35 11/19/24 16:00 FiO2 35 11/24/24 08:00 Oxygen Flow Rate 15 10/29/24 14:07 BMI result Body Mass Index 33.4 General: In somewhat acute distress, chronic ill appearing and tired appearing Nutritional Appearance: well nourished and overweight Eyes: appearance normal, both eyes and all related structures; Alignment and Position: alignment normal and position normal Neck: No lymphadenopathy, no thyromegaly Resp: bilateral air entry equal, occasional added sounds present Cardio: Regular rate, regular rhythm; Heart sounds: S1 normal heart sound present and S2 normal heart sound present GI: soft, nontender, no guarding, no hepatosplenomegaly : bladder normal to inspection, bladder normal to palpation, no renal angle tenderness Skin: no rashes or lesions noted and elasticity normal Neuro: Opens eyes but does not follow commands Objective Data Labs 11/24/24 05:22 11/24/24 05:22 Labs: Laboratory Results - last 24 hr 11/23/24 11/23/24 11/23/24 11:30 17:12 23:28 WBC RBC Hgb Hct MCV MCH MCHC RDW Plt Count MPV Immature Gran % (Auto) Neut % (Auto) Lymph % (Auto) [place] % (Auto) Eos % (Auto) Baso % (Auto) Lymph # (Auto) [place] # (Auto) Eos # (Auto) Baso # (Auto) Abs Immat Gran (auto) Absolute Neuts (auto) Absolute Nucleated RBC Nucleated RBC % (auto) VBG pH VBG pCO2 VBG pO2 VBG HCO3 VBG O2 Saturation VBG Base Excess Sodium Potassium Chloride Carbon Dioxide Anion Gap BUN Creatinine Estim Creat Clear Calc Estimated GFR POC Glucose 165 H 166 H 145 H Random Glucose Calcium Phosphorus Magnesium Total Bilirubin AST ALT Alkaline Phosphatase Total Protein Albumin 11/24/24 11/24/24 11/24/24 05:22 05:26 05:34 WBC 9.9 RBC 2.85 L Hgb 8.3 L Hct 26.8 L MCV 94.0 MCH 29.1 MCHC 31.0 RDW 18.6 H Plt Count 244 MPV 11.2 Immature Gran % (Auto) 1.1 H Neut % (Auto) 55.4 Lymph % (Auto) 30.8 [place] % (Auto) 9.2 Eos % (Auto) 2.9 Baso % (Auto) 0.6 Lymph # (Auto) 3.1 [place] # (Auto) 0.9 Eos # (Auto) 0.3 Baso # (Auto) 0.1 Abs Immat Gran (auto) 0.11 H Absolute Neuts (auto) 5.5 Absolute Nucleated RBC 0.000 Nucleated RBC % (auto) 0.0 VBG pH 7.52 H VBG pCO2 47 VBG pO2 71 VBG HCO3 38 H VBG O2 Saturation 96.0 VBG Base Excess 14.4 Sodium 137 Potassium 3.7 Chloride 98 Carbon Dioxide 33 H Anion Gap 10 L BUN 16 Creatinine 0.52 Estim Creat Clear Calc 138.1 Estimated GFR > 60 POC Glucose 182 H Random Glucose 175 H Calcium 8.6 Phosphorus 3.4 Magnesium 2.0 Total Bilirubin 0.7 AST 26 ALT < 6 Alkaline Phosphatase 259 H Total Protein 6.9 Albumin 2.8 L Microbiology Microbiology Results: Microbiology 11/22/24 10:00 Groin, Left Gram Stain - Final 11/22/24 10:00 Groin, Left Routine Culture - Preliminary No growth to date. 11/22/24 10:00 Groin, Left Anaerobic Culture - Preliminary No growth to date. 11/21/24 16:36 Groin Gram Stain - Final 11/21/24 16:36 Groin Routine Culture - Preliminary Gram negative oswald 11/02/24 09:16 Groin, Right Gram Stain - Final 11/02/24 09:16 Groin, Right Routine Culture - Final Proteus mirabilis So albicans 10/29/24 15:29 Blood - Venous Blood Culture - Final No growth after 5 days. 10/29/24 14:42 Blood - Venous Blood Culture - Final No growth after 5 days. 10/29/24 Unknown Urine Catheterized - Kelly Catheter Urine Culture - Final Escherichia coli Progress Note: A&P Assessment and plan (1) Heart failure with reduced ejection fraction: Status: Acute (2) Persistent atrial fibrillation: Status: Acute (3) Tracheostomy in place: Status: Acute (4) UTI due to extended-spectrum beta lactamase (ESBL) producing Escherichia coli: Status: Acute (5) Septic shock: Status: Acute (6) Sepsis due to urinary tract infection: Status: Acute (7) Acute encephalopathy: Status: Acute (8) Idiopathic pulmonary fibrosis: Status: Acute (9) Acute on chronic hypoxic respiratory failure: Status: Acute Plan 79-year-old gentleman with underlying IPF, AFib on anticoagulation, 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 Neuro: Acute encephalopathy possibly due to metabolic encephalopathy from urinary tract infection not on any sedation for several days Close neurological status monitoring in the ICU every hour Cardiac: Cardiogenic shock: due to positive pressure ventilation currently on levophed support, will titrate to keep MAP above 65mmHG Paroxysmal atrial fibrillation: possibly in MAT vs frequent PACs anticoagulation held since hematoma and hemorrhagic shock that has resolved now Continue prophylactic Lovenox, we will hold off on therapeutic Lovenox due to risk bleeding Respiratory: Acute upon chronic hypoxemic respiratory failure due to idiopathic pulmonary fibrosis and pulmonary edema from heart failure currently status post tracheostomy on 11/15 2024. he is on PRVC 35%, PEEP 5, TV 380, RR 18; pressor support trial as tolerated during the day Ventilator management protocol, chlorhexidine mouthwash, head elevation, daily awakening trials volume leak through the trach currently on 8.5 shiley following which leak has improved, still needs high pressure to hold the volume GI: status post gastrostomy tube placement on 11/15/2024 continue tube feeds Renal: Normal renal function Continue lasix 40mg daily, fluid balance net even for the past 2 days; will increase to BID We will closely monitor I's and O's Avoid nephrotoxic medications Heme: Chronic anemia, closely monitor H&H, transfuse for hemoglobin less than 7 grams/deciliter hemoglobin 8.3 this morning Endocrine: Blood sugars under control on sliding scale as needed Sliding scale insulin as needed Infectious disease: Urine cultures positive for ESBL, blood cultures negative upon admission treated with meropenem also treated with vancomycin for skin site infection Groin wound growing Gram-negative rods, on meropenem and Zyvox, we will discontinue Zyvox Musculoskeletal: Decubitus ulcer prevention protocol Lines: Triple lumen PICC left brachial Chronic Kelly Prophylaxis: Lovenox, famotidine Had a detailed goals of care discussion with patient's son, explained him that we are not moving ahead and it is very unlikely that he would have a meaningful recovery. Son states that he has been bed-bound for the past 10 years or so, if the decision needs to be made about hospice care he is willing to do it. He is waiting on few relatives from [place] to come and see him before he can make that decision. Quality Stroke Does the patient have a stroke diagnosis?: No VTE Prior VTE?: No VTE Risk Level:: Medical - moderate - high VTE Device Contraindication: N/A - Device Ordered VTE Drug Contraindication: Treatment Not Tolerated
--- NOTE | 2024-11-24 09:46 | MHC.CLN ---
F/U DISCUSSED AT ROUNDS WITH TF WAS PAUSED AND CURRENTLY RUNNING AT 70ML/HR WITH GOAL OF TITRATING TO GOAL NOTED TEMP-PT MAY REQUIRE INCREASED WATER FLUSHES TO MAKE UP FOR FLUID LOSSES RECEIVING GLUCERNA 1.0 AT MAX GOAL RATE 90ML/HR WITH 30ML PROSOURCE X1 PER DAY AND 120ML FREE WATER FLUSHES Q 8 HRS PROVIDES 2220KCALS (30KCALS/KG IBW), 105G TOTAL PROTEIN (1.4G/KG IBW), 2202ML TOTAL FREE WATER FROM FORMULA AND FLUSHES (30ML/KG IBW) RECOMMEND INCREASING PROSOURCE TO BID AND INCREASE FLUSHES TO 120G 6 HRS R/T FEVER CONTINUE TO MONITOR TOLERANCE AND LYTES
[2024-11-24 11:46] LABS: Glucose, Whole Blood 154 mg/dL (60-115)
--- NOTE | 2024-11-24 14:10 | MHC.CM.PN ---
Pt continues care in ICU: Trach changed to 8.5 Shiley, Levophed tappered off and clinical updates have been sent to [facility] in anticipation of transfer - likely next week. Per today's [facility] request, pt needs to be off Levophed x 24 hours for a bed request to be generated. Levo at 0 at 12:50 pm today. Pt's son Jose continues to want to serve as his father's HCP. CM to follow w/J[facility] on Wednesday for transfer potential.
--- NOTE | 2024-11-24 16:51 | HE.ICUCC ---
ICU Critical Care Nursing Note ICU Day #: 27 Vent Day #:25 Assumed care of patient 0700. Patient up to [place]ian recliner chair 09:30-16:30. Pt remains ventilator dependent.? Neuro: Pt eyes open spontaneously, awake, drowsy. Unable to follow commands to squeeze hands or move feet. Answers some yes/no questions to make needs known. Mouthed the phrase ?back to bed.?? Cardiac: Sinus arrhythmia on tele. Pt titrated off of levophed from @0.07 to zero. Maintaining goal MAP >65.? Resp: Vent settings ACVC+ 18/380/5.0/35%. Pt unable to tolerate PSV trial with high RR. Tracheostomy changed 11/23/24 to 8.5 Shiley. Trach care provided 16:00? GI/: Chronic pickering draining pale yellow urine with sediment. Lasix 40 IVP given with good effect approx? 08:00. Tolerating tube feeds well at goal rate; Glucerna @90ml/hr Endocrine: POC glucose well controlled. Patient required 2 units SSI coverage at 12:00? Integumentary/Musculoskeletal: See updated skin photos? Psychosocial (family etc.): Son Jose at bedside today approx 13:00. updated Jose?s mother during her later afternoon visit approx 15:00.? Infectious Disease: Meropenum IV for ESBL infection? Central Lines: CT PICC line TLC 5 Korean, 41cm?
--- NOTE | 2024-11-24 17:15 | HO.SKINPHOTO ---
Location: left groin fold Category: surgical site Site of left groin hematoma evacuation - silver durafiber and gauze dsg applied. Location: left groin proximal, left abdominal fold Category: sx site and maceration associated skin damage, respectively Location: left posterior thigh Category: acute skin failure Location: Coccyx Category: acute skin failure triad applied
[2024-11-24 17:58] LABS: Glucose, Whole Blood 116 mg/dL (60-115)
[2024-11-24] MEDS: Norepinephrine Bitartrate/D5W 8 MG/250 ML PLAST..BAG 9.03 MG IVCONT (19:30)
[2024-11-25] VITALS (34 sets, daily range): BP systolic 96–124; BP diastolic 37–65; PULSE 73–112; RESP 11–37; TEMP 34.7–38.4; O2SAT 91–98; BMI 31.9
[2024-11-25 00:10] LABS: Glucose, Whole Blood 163 mg/dL (60-115)
[2024-11-25] MEDS: Insulin Lispro 100 UNIT/ML 3 ML VIAL SUBCUT ×5 (00:31→23:50)
[2024-11-25] MEDS: 0.9 % Sodium Chloride Flush 3 ML SYRINGE IVFLUSH (00:32)
[2024-11-25] MEDS: Meropenem 1 GM VIAL IVPUSH ×3 (01:34→16:10)
[2024-11-25 05:01] LABS: VBG Base Excess 19.4 mmol/L; VBG HCO3 41 mmol/L (22-26); VBG pCO2 37 mmHg; VBG pH 7.65 (7.32-7.43); VBG pO2 47 mmHg
[2024-11-25 05:06] LABS: MANUAL DIFF FLAG NO
[2024-11-25 05:07] LABS: Basophils Absolute Auto 0.1 X10*3/uL (0.0-0.2); Basophils Percent Auto 0.8 % (0-2); Eosinophils Absolute Auto 0.2 X10*3/uL (0.0-0.4); Eosinophils Percent Auto 2.3 % (0-4); Hematocrit 26.1 % (42.0-52.0); Hemoglobin 7.9 g/dl (14.0-18.0); Imm Gran Abs Auto 0.05 X10*3/uL (0.00-0.03); Imm Gran Pct Auto 0.5 % (0.0-0.4); Lymphocytes Absolute Auto 3.8 X10*3/uL (1.2-4.9); Lymphocytes Percent Auto 36.7 % (20-40); Mean Corpuscular HGB Conc 30.3 g/dl (31.0-36.0); Mean Corpuscular Hemoglobin 28.5 pg (27.0-33.0); Mean Corpuscular Volume 94.2 fL (80.0-98.0); Mean Platelet Volume 11.4 fL (9.4-12.4); Monocytes Absolute Auto 1.2 X10*3/uL (0.1-1.2); Monocytes Percent Auto 11.3 % (2-11); Neutrophils Percent Auto 48.4 % (45-73); Platelet Count 238 X10*3/uL (160-400); Red Blood Count 2.77 X10*6/uL (4.60-5.80); Red Cell Distribution Width 18.5 % (11.0-16.0); White Blood Count 10.3 X10*3/uL (4.8-10.8)
[2024-11-25 05:14] LABS: Venous Blood Gas Refer to POC result
[2024-11-25 05:25] LABS: Alanine Aminotransferase < 6 U/L (0-40); Albumin Level 2.6 g/dL (3.5-5.0); Alkaline Phosphatase 275 U/L (39-117); Anion Gap 11 (12-20); Aspartate Amino Transferase 22 U/L (5-37); Bilirubin Total 0.6 mg/dL (0.0-1.0); Blood Urea Nitrogen 18 mg/dL (9-16); Calcium 8.2 mg/dL (8.4-10.2); Carbon Dioxide 33 mmol/L (22-29); Chloride 96 mmol/L (96-108); Creatinine Clr Calc Pharmacy 130.6; Estimated Glomerular Filt Rate > 60; Glucose Random 156 mg/dL (60-115); Magnesium 1.8 mg/dL (1.6-2.6); Phosphorus 3.2 mg/dL (2.7-4.5); Potassium 3.7 mmol/L (3.3-5.1); Sodium 136 mmol/L (135-145)
[2024-11-25] MEDS: Famotidine/PF 20 MG/2 ML VIAL IVPUSH (10:09)
[2024-11-25] MEDS: Furosemide 40 MG/4 ML VIAL IVPUSH ×2 (10:10→19:22)
[2024-11-25] MEDS: Valproic Acid Liquid 250 MG/5 ML SOLUTION PO ×3 (10:11→20:44)
[2024-11-25] MEDS: Enoxaparin Sodium 40 MG/0.4 ML SYRINGE SUBCUT (10:12)
[2024-11-25] MEDS: Chlorhexidine Gluc Oral Rinse 15 ML MOUTHWASH BUCCAL ×3 (10:14→20:44)
[2024-11-25 12:54] LABS: Glucose, Whole Blood 173 mg/dL (60-115)
--- NOTE | 2024-11-25 13:21 | PM.CCPN ---
Subjective Subjective Date of Service: 11/25/24 Critical Care Time (minutes): 35 Comment: No new changes in the overall clinical status Had a discussions about his goals of care with the son, who agreed to changes code status to DNR Physical Exam Vital Signs: Vital Signs: Last Vital Signs Temp 100.6 F H 11/25/24 10:59 Pulse 85 11/25/24 10:59 Resp 15 11/25/24 10:59 BP 103/37 L 11/25/24 10:59 Pulse Ox 94 11/25/24 12:00 O2 Del Method Mechanical Ventil ation 11/25/24 10:59 O2 Flow Rate 35 11/19/24 16:00 FiO2 35 11/25/24 12:00 Oxygen Flow Rate 15 10/29/24 14:07 BMI result Body Mass Index 31.9 General: Not in acute distress, ill appearing and tired appearing Nutritional Appearance: well nourished and overweight Eyes: appearance normal, both eyes and all related structures; Alignment and Position: alignment normal and position normal Neck: No lymphadenopathy, no thyromegaly Resp: bilateral air entry equal, occasional added sounds present Cardio: Regular rate, regular rhythm; Heart sounds: S1 normal heart sound present and S2 normal heart sound present GI: soft, nontender, no guarding, no hepatosplenomegaly : bladder normal to inspection, bladder normal to palpation, no renal angle tenderness Skin: no rashes or lesions noted and elasticity normal Neuro: Occasionally opens eyes, does not move extremities Objective Data Labs 11/25/24 04:54 11/25/24 04:54 Labs: Laboratory Results - last 24 hr 11/24/24 11/25/24 11/25/24 17:54 00:01 04:54 WBC 10.3 RBC 2.77 L Hgb 7.9 L Hct 26.1 L MCV 94.2 MCH 28.5 MCHC 30.3 L RDW 18.5 H Plt Count 238 MPV 11.4 Immature Gran % (Auto) 0.5 H Neut % (Auto) 48.4 Lymph % (Auto) 36.7 [place] % (Auto) 11.3 H Eos % (Auto) 2.3 Baso % (Auto) 0.8 Lymph # (Auto) 3.8 [place] # (Auto) 1.2 Eos # (Auto) 0.2 Baso # (Auto) 0.1 Abs Immat Gran (auto) 0.05 H Absolute Neuts (auto) 5.0 Absolute Nucleated RBC 0.000 Nucleated RBC % (auto) 0.0 VBG pH VBG pCO2 VBG pO2 VBG HCO3 VBG O2 Saturation VBG Base Excess Sodium 136 Potassium 3.7 Chloride 96 Carbon Dioxide 33 H Anion Gap 11 L BUN 18 H Creatinine 0.55 Estim Creat Clear Calc 130.6 Estimated GFR > 60 POC Glucose 116 H 163 H Random Glucose 156 H Calcium 8.2 L Phosphorus 3.2 Magnesium 1.8 Total Bilirubin 0.6 AST 22 ALT < 6 Alkaline Phosphatase 275 H Total Protein 7.0 Albumin 2.6 L 11/25/24 11/25/24 04:57 12:41 WBC RBC Hgb Hct MCV MCH MCHC RDW Plt Count MPV Immature Gran % (Auto) Neut % (Auto) Lymph % (Auto) [place] % (Auto) Eos % (Auto) Baso % (Auto) Lymph # (Auto) [place] # (Auto) Eos # (Auto) Baso # (Auto) Abs Immat Gran (auto) Absolute Neuts (auto) Absolute Nucleated RBC Nucleated RBC % (auto) VBG pH 7.65 H* VBG pCO2 37 VBG pO2 47 VBG HCO3 41 H VBG O2 Saturation 81.0 VBG Base Excess 19.4 Sodium Potassium Chloride Carbon Dioxide Anion Gap BUN Creatinine Estim Creat Clear Calc Estimated GFR POC Glucose 173 H Random Glucose Calcium Phosphorus Magnesium Total Bilirubin AST ALT Alkaline Phosphatase Total Protein Albumin Microbiology Microbiology Results: Microbiology 11/22/24 10:00 Groin, Left Gram Stain - Final 11/22/24 10:00 Groin, Left Routine Culture - Final No growth after 2 days 11/22/24 10:00 Groin, Left Anaerobic Culture - Preliminary No growth to date. 11/21/24 16:36 Groin Gram Stain - Final 11/21/24 16:36 Groin Routine Culture - Preliminary Proteus mirabilis Pseudomonas aeruginosa 11/02/24 09:16 Groin, Right Gram Stain - Final 11/02/24 09:16 Groin, Right Routine Culture - Final Proteus mirabilis So albicans 10/29/24 15:29 Blood - Venous Blood Culture - Final No growth after 5 days. 10/29/24 14:42 Blood - Venous Blood Culture - Final No growth after 5 days. 10/29/24 Unknown Urine Catheterized - Kelly Catheter Urine Culture - Final Escherichia coli Progress Note: A&P Assessment and plan (1) Heart failure with reduced ejection fraction: Status: Acute (2) Persistent atrial fibrillation: Status: Acute (3) Hemorrhagic shock: Status: Acute (4) Non-insulin dependent type 2 diabetes mellitus: Status: Acute (5) Metabolic encephalopathy: Status: Acute (6) Acute encephalopathy: Status: Acute (7) Acute on chronic hypoxic respiratory failure: Status: Acute (8) Idiopathic pulmonary fibrosis: Status: Acute (9) Acute respiratory failure: Status: Acute Plan 79-year-old gentleman with underlying IPF, AFib on anticoagulation, 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 Neuro: Acute encephalopathy possibly due to metabolic encephalopathy from urinary tract infection not on any sedation for several days still continues to have poor mental status Close neurological status monitoring in the ICU every hour Cardiac: Cardiogenic shock: due to positive pressure ventilation currently on levophed support, will titrate to keep MAP above 65mmHG Paroxysmal atrial fibrillation: possibly in MAT vs frequent PACs anticoagulation held since hematoma and hemorrhagic shock that has resolved now Continue prophylactic Lovenox, we will hold off on therapeutic Lovenox due to risk bleeding Respiratory: Acute upon chronic hypoxemic respiratory failure due to idiopathic pulmonary fibrosis and pulmonary edema from heart failure currently status post tracheostomy on 11/15 2024. he is on PRVC 35%, PEEP 5, TV 380, RR 18; pressor support trial as tolerated during the day Ventilator management protocol, chlorhexidine mouthwash, head elevation, daily awakening trials volume leak through the trach currently on 8.5 shiley following which leak has improved, still needs high pressure to hold the volume GI: status post gastrostomy tube placement on 11/15/2024 continue tube feeds Renal: Normal renal function Continue lasix 40mg BID, fluid balance net even for the past 2 days We will closely monitor I's and O's Avoid nephrotoxic medications Heme: Chronic anemia, closely monitor H&H, transfuse for hemoglobin less than 7 grams/deciliter hemoglobin 8.3 this morning Endocrine: Blood sugars under control on sliding scale as needed Sliding scale insulin as needed Infectious disease: Urine cultures positive for ESBL, blood cultures negative upon admission treated with meropenem also treated with vancomycin for skin site infection Groin wound growing Gram-negative rods, on meropenem Musculoskeletal: Decubitus ulcer prevention protocol Lines: Triple lumen PICC left brachial Chronic Kelly Prophylaxis: Lovenox, famotidine Quality Stroke Does the patient have a stroke diagnosis?: No VTE Prior VTE?: No VTE Risk Level:: Medical - moderate - high VTE Device Contraindication: N/A - Device Ordered VTE Drug Contraindication: Treatment Not Tolerated
[2024-11-25] MEDS: Norepinephrine Bitartrate/D5W 8 MG/250 ML PLAST..BAG 9.03 MG IVCONT (15:42)
[2024-11-25 17:19] LABS: Glucose, Whole Blood 183 mg/dL (60-115)
--- NOTE | 2024-11-25 19:42 | PC.NURSE ---
Assumed care 0700 on 11/25/24. on initail assessment patient is Off sedation. Opens eyes occasionally, does not track, does not follow commands, Moves head and? upper extremities weakly. (passive ROM performed).? Tolerated ventilation of sedation. S/P? Peg/ Trach placement? 11/15.? on Levophed gtt - see MAR, MAP goal >65.? Post left femoral hematoma evacuation 11/11. L femoral dressing change performed 11/25 d/t purulent drainage noted on gauze. Kelly in place patent/draining. cloudy sediment. LBM 11/25, soft abdomen, + bowel sounds, Tolerating? tubefeeds without signs of intolerance,? POC q 6HRS. Impaired skin integrity/Acute Skin Failure - see skin assessment (repositioning maintained)?
[2024-11-25 23:31] LABS: Glucose, Whole Blood 161 mg/dL (60-115)
[2024-11-25] MEDS: Acetaminophen 325 MG TABLET 650 MG PO (23:51)
[2024-11-26] VITALS (37 sets, daily range): BP systolic 84–131; BP diastolic 32–82; PULSE 73–111; RESP 15–36; TEMP 34.9–39.2; O2SAT 90–100; BMI 31.6
[2024-11-26] MEDS: Meropenem 1 GM VIAL IVPUSH ×3 (00:03→17:33)
[2024-11-26] MEDS: 0.9 % Sodium Chloride Flush 3 ML SYRINGE IVFLUSH ×4 (00:03→20:28)
[2024-11-26] MEDS: Norepinephrine Bitartrate/D5W 8 MG/250 ML PLAST..BAG 9.03 MG IVCONT (01:37)
[2024-11-26 04:22] LABS: VBG Base Excess 19.8 mmol/L; VBG HCO3 43 mmol/L (22-26); VBG pCO2 46 mmHg; VBG pH 7.58 (7.32-7.43); VBG pO2 57 mmHg
[2024-11-26 04:39] LABS: Venous Blood Gas Refer to POC result
[2024-11-26 04:53] LABS: Alanine Aminotransferase 7 U/L (0-40); Albumin Level 2.6 g/dL (3.5-5.0); Alkaline Phosphatase 276 U/L (39-117); Anion Gap 12 (12-20); Aspartate Amino Transferase 27 U/L (5-37); Bilirubin Total 0.6 mg/dL (0.0-1.0); Blood Urea Nitrogen 20 mg/dL (9-16); Calcium 8.2 mg/dL (8.4-10.2); Carbon Dioxide 35 mmol/L (22-29); Chloride 95 mmol/L (96-108); Estimated Glomerular Filt Rate > 60; Glucose Random 172 mg/dL (60-115); Potassium 3.6 mmol/L (3.3-5.1); Sodium 138 mmol/L (135-145); Total Protein 7.1 g/dL (6.5-8.0)
[2024-11-26 05:03] LABS: Basophils Absolute Auto 0.1 X10*3/uL (0.0-0.2); Basophils Percent Auto 0.6 % (0-2); Eosinophils Absolute Auto 0.2 X10*3/uL (0.0-0.4); Eosinophils Percent Auto 1.9 % (0-4); Hematocrit 28.3 % (42.0-52.0); Hemoglobin 8.7 g/dl (14.0-18.0); Imm Gran Abs Auto 0.07 X10*3/uL (0.00-0.03); Imm Gran Pct Auto 0.6 % (0.0-0.4); Lymphocytes Absolute Auto 4.1 X10*3/uL (1.2-4.9); Lymphocytes Percent Auto 35.8 % (20-40); MANUAL DIFF FLAG NO; Mean Corpuscular HGB Conc 30.7 g/dl (31.0-36.0); Mean Corpuscular Hemoglobin 28.7 pg (27.0-33.0); Mean Corpuscular Volume 93.4 fL (80.0-98.0); Mean Platelet Volume 11.4 fL (9.4-12.4); Monocytes Absolute Auto 1.5 X10*3/uL (0.1-1.2); Monocytes Percent Auto 12.5 % (2-11); Neutrophils Absolute Auto 5.6 x10*3/uL (2.0-8.3); Neutrophils Percent Auto 48.6 % (45-73); Platelet Count 235 X10*3/uL (160-400); Red Blood Count 3.03 X10*6/uL (4.60-5.80); Red Cell Distribution Width 18.4 % (11.0-16.0); White Blood Count 11.6 X10*3/uL (4.8-10.8)
[2024-11-26] MEDS: Insulin Lispro 100 UNIT/ML 3 ML VIAL SUBCUT ×3 (05:06→18:34)
[2024-11-26] MEDS: Valproic Acid Liquid 250 MG/5 ML SOLUTION PO ×3 (08:02→20:28)
[2024-11-26] MEDS: Famotidine/PF 20 MG/2 ML VIAL IVPUSH (08:02)
[2024-11-26] MEDS: Furosemide 40 MG/4 ML VIAL IVPUSH ×2 (08:02→18:34)
[2024-11-26] MEDS: Chlorhexidine Gluc Oral Rinse 15 ML MOUTHWASH BUCCAL ×3 (08:02→20:28)
[2024-11-26] MEDS: Enoxaparin Sodium 40 MG/0.4 ML SYRINGE SUBCUT (08:03)
[2024-11-26 11:29] LABS: Glucose, Whole Blood 161 mg/dL (60-115)
--- NOTE | 2024-11-26 11:34 | PM.CCPN ---
Subjective Subjective Date of Service: 11/26/24 Critical Care Time (minutes): 35 Comment: No new events, continues to be on ventilator support Physical Exam Vital Signs: Vital Signs: Last Vital Signs Temp 101.3 F H 11/26/24 11:00 Pulse 97 11/26/24 11:00 Resp 19 11/26/24 11:00 BP 113/68 11/26/24 11:00 Pulse Ox 96 11/26/24 11:00 O2 Del Method Mechanical Ventil ation 11/26/24 11:00 O2 Flow Rate 35 11/19/24 16:00 FiO2 35 11/26/24 11:00 Oxygen Flow Rate 15 10/29/24 14:07 BMI result Body Mass Index 31.6 Objective Data Labs 11/26/24 04:14 11/26/24 04:14 Labs: Laboratory Results - last 24 hr 11/25/24 11/25/24 11/25/24 12:41 17:15 23:27 WBC RBC Hgb Hct MCV MCH MCHC RDW Plt Count MPV Immature Gran % (Auto) Neut % (Auto) Lymph % (Auto) [place] % (Auto) Eos % (Auto) Baso % (Auto) Lymph # (Auto) [place] # (Auto) Eos # (Auto) Baso # (Auto) Abs Immat Gran (auto) Absolute Neuts (auto) Absolute Nucleated RBC Nucleated RBC % (auto) VBG pH VBG pCO2 VBG pO2 VBG HCO3 VBG O2 Saturation VBG Base Excess Sodium Potassium Chloride Carbon Dioxide Anion Gap BUN Creatinine Estim Creat Clear Calc Estimated GFR POC Glucose 173 H 183 H 161 H Random Glucose Calcium Total Bilirubin AST ALT Alkaline Phosphatase Total Protein Albumin 11/26/24 11/26/24 11/26/24 04:14 04:17 11:25 WBC 11.6 H RBC 3.03 L Hgb 8.7 L Hct 28.3 L MCV 93.4 MCH 28.7 MCHC 30.7 L RDW 18.4 H Plt Count 235 MPV 11.4 Immature Gran % (Auto) 0.6 H Neut % (Auto) 48.6 Lymph % (Auto) 35.8 [place] % (Auto) 12.5 H Eos % (Auto) 1.9 Baso % (Auto) 0.6 Lymph # (Auto) 4.1 [place] # (Auto) 1.5 H Eos # (Auto) 0.2 Baso # (Auto) 0.1 Abs Immat Gran (auto) 0.07 H Absolute Neuts (auto) 5.6 Absolute Nucleated RBC 0.000 Nucleated RBC % (auto) 0.0 VBG pH 7.58 H VBG pCO2 46 VBG pO2 57 VBG HCO3 43 H VBG O2 Saturation 89.0 VBG Base Excess 19.8 Sodium 138 Potassium 3.6 Chloride 95 L Carbon Dioxide 35 H Anion Gap 12 BUN 20 H Creatinine 0.54 Estim Creat Clear Calc 130.0 Estimated GFR > 60 POC Glucose 161 H Random Glucose 172 H Calcium 8.2 L Total Bilirubin 0.6 AST 27 ALT 7 Alkaline Phosphatase 276 H Total Protein 7.1 Albumin 2.6 L Microbiology Microbiology Results: Microbiology 11/22/24 10:00 Groin, Left Gram Stain - Final 11/22/24 10:00 Groin, Left Routine Culture - Final No growth after 2 days 11/22/24 10:00 Groin, Left Anaerobic Culture - Preliminary No growth to date. 11/21/24 16:36 Groin Gram Stain - Final 11/21/24 16:36 Groin Routine Culture - Final Proteus mirabilis Pseudomonas aeruginosa Pseudomonas aeruginosa#2 11/02/24 09:16 Groin, Right Gram Stain - Final 11/02/24 09:16 Groin, Right Routine Culture - Final Proteus mirabilis So albicans 10/29/24 15:29 Blood - Venous Blood Culture - Final No growth after 5 days. 10/29/24 14:42 Blood - Venous Blood Culture - Final No growth after 5 days. 10/29/24 Unknown Urine Catheterized - Kelly Catheter Urine Culture - Final Escherichia coli Progress Note: A&P Assessment and plan (1) Heart failure with reduced ejection fraction: Status: Acute (2) Persistent atrial fibrillation: Status: Acute (3) Hemorrhagic shock: Status: Acute (4) Non-insulin dependent type 2 diabetes mellitus: Status: Acute (5) Metabolic alkalosis: Status: Acute (6) Acute encephalopathy: Status: Acute (7) Idiopathic pulmonary fibrosis: Status: Acute (8) Acute on chronic hypoxic respiratory failure: Status: Acute Plan 79-year-old gentleman with underlying IPF, AFib on anticoagulation, 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 Unable to wean from the ventilator due to poor minute volume upon pressor support, failed T tube trials. Neuro: Acute encephalopathy possibly due to metabolic encephalopathy not on any sedation for several days still continues to have poor mental status Close neurological status monitoring in the ICU every hour Cardiac: Cardiogenic shock: due to positive pressure ventilation currently on levophed support, will titrate to keep MAP above 65mmHG Paroxysmal atrial fibrillation: possibly in MAT vs frequent PACs anticoagulation held since hematoma and hemorrhagic shock that has resolved now Continue prophylactic Lovenox, we will hold off on therapeutic Lovenox due to risk bleeding Respiratory: Acute upon chronic hypoxemic respiratory failure due to idiopathic pulmonary fibrosis and pulmonary edema from heart failure currently status post tracheostomy on 11/15 2024. he is on PRVC 35%, PEEP 5, TV 380, RR 18; pressor support trial as tolerated during the day Ventilator management protocol, chlorhexidine mouthwash, head elevation, daily awakening trials Significant volume leak through the trach currently switched to 8.5 shiley following which leak has improved, still needs high pressure to hold the volume GI: status post gastrostomy tube placement on 11/15/2024 continue tube feeds Renal: Normal renal function Continue lasix 40mg BID, fluid balance close to net even for the past 3 days We will closely monitor I's and O's Avoid nephrotoxic medications Heme: Chronic anemia, closely monitor H&H, transfuse for hemoglobin less than 7 grams/deciliter hemoglobin stable 8.7 this morning Endocrine: Blood sugars under control on sliding scale as needed Sliding scale insulin as needed Infectious disease: Urine cultures positive for ESBL, blood cultures negative upon admission treated with meropenem also treated with vancomycin for skin site infection Groin wound growing Gram-negative rods, on meropenem Musculoskeletal: Decubitus ulcer prevention protocol Lines: Triple lumen PICC left brachial Chronic Kelly Prophylaxis: Lovenox, famotidine Quality Stroke Does the patient have a stroke diagnosis?: No VTE Prior VTE?: No VTE Risk Level:: Medical - moderate - high VTE Device Contraindication: N/A - Device Ordered VTE Drug Contraindication: Treatment Not Tolerated
[2024-11-26] MEDS: HYDROmorphone HCl 0.5 MG/0.5 ML SYRINGE IVPUSH (17:32)
[2024-11-26] MEDS: Acetaminophen 325 MG TABLET 650 MG PO (17:32)
[2024-11-26 18:33] LABS: Glucose, Whole Blood 187 mg/dL (60-115)
--- NOTE | 2024-11-26 19:19 | PC.NURSE ---
assumed care of patient 0700 11/26/24 patient stable on vent. vitals stable. temperature slightly elevated at approx 1700 but responding well to PO tylenol. given PRN dilaudid at approx 1745 for pain due to elevated heart rate, respiratory rate, rigidity, and visible discomfort. unable to ween vent settings today see vent assessments. patient has copious patient trach care, repositioning, mouth care performed. 2 large BM semi-formed today. skin integrity still impaired, see skin assessments and wound notes. some evidence of healing on posterior coccyx, no evedice of healing to R groin. patient handed off 1900 10/29/24
[2024-11-26] MEDS: Norepinephrine Bitartrate/D5W 8 MG/250 ML PLAST..BAG 19.86 MG IVCONT (19:26)
[2024-11-27] VITALS (46 sets, daily range): BP systolic 82–132; BP diastolic 37–71; PULSE 64–100; RESP 13–30; TEMP 34.9–38.3; O2SAT 93–98; BMI 31.7
[2024-11-27 00:12] LABS: Glucose, Whole Blood 187 mg/dL (60-115)
[2024-11-27] MEDS: Insulin Lispro 100 UNIT/ML 3 ML VIAL SUBCUT ×4 (00:13→17:02)
[2024-11-27] MEDS: Meropenem 1 GM VIAL IVPUSH ×3 (00:13→16:42)
[2024-11-27 03:03] LABS: Glucose, Whole Blood 158 mg/dL (60-115)
[2024-11-27] MEDS: Acetaminophen 325 MG TABLET 650 MG PO (04:04)
[2024-11-27 04:57] LABS: Basophils Absolute Auto 0.1 X10*3/uL (0.0-0.2); Basophils Percent Auto 0.6 % (0-2); Eosinophils Absolute Auto 0.2 X10*3/uL (0.0-0.4); Eosinophils Percent Auto 1.4 % (0-4); Hematocrit 25.5 % (42.0-52.0); Hemoglobin 8.3 g/dl (14.0-18.0); Imm Gran Pct Auto 0.7 % (0.0-0.4); Lymphocytes Absolute Auto 4.6 X10*3/uL (1.2-4.9); Lymphocytes Percent Auto 30.7 % (20-40); MANUAL DIFF FLAG SCAN; Mean Corpuscular HGB Conc 32.5 g/dl (31.0-36.0); Mean Corpuscular Hemoglobin 30.3 pg (27.0-33.0); Mean Corpuscular Volume 93.1 fL (80.0-98.0); Mean Platelet Volume 10.7 fL (9.4-12.4); Monocytes Absolute Auto 1.7 X10*3/uL (0.1-1.2); Monocytes Percent Auto 11.7 % (2-11); Neutrophils Absolute Auto 8.1 x10*3/uL (2.0-8.3); Neutrophils Percent Auto 54.9 % (45-73); Platelet Count 202 X10*3/uL (160-400); Red Blood Count 2.74 X10*6/uL (4.60-5.80); Red Cell Distribution Width 18.2 % (11.0-16.0); SCAN SMEAR FLAG 1; White Blood Count 14.8 X10*3/uL (4.8-10.8)
[2024-11-27 04:58] LABS: VBG Base Excess 24.8 mmol/L; VBG HCO3 48 mmol/L (22-26); VBG pCO2 45 mmHg; VBG pH 7.63 (7.32-7.43); VBG pO2 49 mmHg
[2024-11-27 04:59] LABS: Venous Blood Gas Refer to POC result
[2024-11-27 05:21] LABS: Alanine Aminotransferase < 6 U/L (0-40); Albumin Level 2.4 g/dL (3.5-5.0); Alkaline Phosphatase 295 U/L (39-117); Anion Gap 13 (12-20); Aspartate Amino Transferase 27 U/L (5-37); Bilirubin Total 0.6 mg/dL (0.0-1.0); Blood Urea Nitrogen 23 mg/dL (9-16); Calcium 8.2 mg/dL (8.4-10.2); Carbon Dioxide 34 mmol/L (22-29); Chloride 94 mmol/L (96-108); Creatinine Clr Calc Pharmacy 134.4; Estimated Glomerular Filt Rate > 60; Glucose Random 190 mg/dL (60-115); Magnesium 1.9 mg/dL (1.6-2.6); Phosphorus 3.2 mg/dL (2.7-4.5); Sodium 137 mmol/L (135-145); Total Protein 7.3 g/dL (6.5-8.0)
[2024-11-27 05:23] LABS: SLIDE REVIEW VERIFIED
[2024-11-27] MEDS: Norepinephrine Bitartrate/D5W 8 MG/250 ML PLAST..BAG 27.08 MG IVCONT ×2 (05:43→21:56)
--- NOTE | 2024-11-27 06:15 | PC.NURSE ---
Assumed care 1900, pt lethargic - opens eyes spontaneously, does not track or follow commands. Remains on ACVC?settings - see vent assessment. MAPs < 65, levophed titrated per NOV.Tmax 100.8, prn tylenol given with good effect - see MAR. L groin dsg c/d/i, TJ drain with 10 ml of serosanguineous?output. New interdry applied to abdominal/groin folds, CHG bath given.?
--- NOTE | 2024-11-27 08:00 | P.PNCC_ITS ---
Subjective Subjective Date of Service: 11/27/24 Critical Care Time (minutes): 60 Physical Exam 2 Vital Signs: Vital Signs: Last Vital Signs Temp 100.4 F 11/27/24 07:00 Pulse 64 11/27/24 07:00 Resp 18 11/27/24 07:00 BP 111/54 L 11/27/24 07:00 Pulse Ox 95 11/27/24 07:56 O2 Del Method Mechanical Ventil ation 11/27/24 07:00 O2 Flow Rate 35 11/19/24 16:00 FiO2 35 11/27/24 07:56 Oxygen Flow Rate 15 10/29/24 14:07 BMI result Body Mass Index 31.7 Const: Other: opens eyes spontaneously; appreciable non-purposeful movements in bilateral upper extremities General: no acute distress HEENT: Head: Yes normal to inspection, Yes normocephalic and Yes atraumatic Eyes: General: appearance normal, both eyes and all related structures Neck: Neck: Yes normal visual inspection, Yes full ROM, Yes no meningeal signs, Yes trachea midline and Yes supple Chest: Chest palpation & inspection: normal inspection of the chest Resp: Other: appreciable rhonchi throughout; no appreciable overt rales, wheezing Cardio: Rate: regular rate Rhythm: abnormal rhythm GI: Inspection: Yes normal to inspection, No Abdominal wall edema and No distended Palpation (GI): Soft to palpation, not firm, nontender, no guarding and not rigid Skin: General skin exam: no rashes or lesions noted Neuro: Other: as described above General: no meningeal signs Extrem: Other: appreciable 2+ pitting edema to bilateral thighs General: Yes normal to inspection, Yes full ROM and Yes capillary refill normal Psych: Other: unable to assess Objective Data Labs 11/27/24 04:40 11/27/24 04:40 Labs: Laboratory Results - last 24 hr 11/26/24 11/26/24 11/27/24 11:25 18:30 00:08 WBC RBC Hgb Hct MCV MCH MCHC RDW Plt Count MPV Immature Gran % (Auto) Neut % (Auto) Lymph % (Auto) [place] % (Auto) Eos % (Auto) Baso % (Auto) Lymph # (Auto) [place] # (Auto) Eos # (Auto) Baso # (Auto) Abs Immat Gran (auto) Absolute Neuts (auto) Absolute Nucleated RBC Nucleated RBC % (auto) Smear Tech's Comments VBG pH VBG pCO2 VBG pO2 VBG HCO3 VBG O2 Saturation VBG Base Excess Sodium Potassium Chloride Carbon Dioxide Anion Gap BUN Creatinine Estim Creat Clear Calc Estimated GFR POC Glucose 161 H 187 H 187 H Random Glucose Calcium Phosphorus Magnesium Total Bilirubin AST ALT Alkaline Phosphatase Total Protein Albumin 11/27/24 11/27/24 11/27/24 02:57 04:40 04:54 WBC 14.8 H RBC 2.74 L Hgb 8.3 L Hct 25.5 L MCV 93.1 MCH 30.3 MCHC 32.5 RDW 18.2 H Plt Count 202 MPV 10.7 Immature Gran % (Auto) 0.7 H Neut % (Auto) 54.9 Lymph % (Auto) 30.7 [place] % (Auto) 11.7 H Eos % (Auto) 1.4 Baso % (Auto) 0.6 Lymph # (Auto) 4.6 [place] # (Auto) 1.7 H Eos # (Auto) 0.2 Baso # (Auto) 0.1 Abs Immat Gran (auto) 0.10 H Absolute Neuts (auto) 8.1 Absolute Nucleated RBC 0.000 Nucleated RBC % (auto) 0.0 Smear Tech's Comments VERIFIED VBG pH 7.63 H* VBG pCO2 45 VBG pO2 49 VBG HCO3 48 H VBG O2 Saturation 83.0 VBG Base Excess 24.8 Sodium 137 Potassium 4.0 Chloride 94 L Carbon Dioxide 34 H Anion Gap 13 BUN 23 H Creatinine 0.52 Estim Creat Clear Calc 134.4 Estimated GFR > 60 POC Glucose 158 H Random Glucose 190 H Calcium 8.2 L Phosphorus 3.2 Magnesium 1.9 Total Bilirubin 0.6 AST 27 ALT < 6 Alkaline Phosphatase 295 H Total Protein 7.3 Albumin 2.4 L Microbiology Microbiology Results: Microbiology 11/22/24 10:00 Groin, Left Gram Stain - Final 11/22/24 10:00 Groin, Left Routine Culture - Final No growth after 2 days 11/22/24 10:00 Groin, Left Anaerobic Culture - Preliminary No growth to date. 11/21/24 16:36 Groin Gram Stain - Final 11/21/24 16:36 Groin Routine Culture - Final Proteus mirabilis Pseudomonas aeruginosa Pseudomonas aeruginosa#2 11/02/24 09:16 Groin, Right Gram Stain - Final 11/02/24 09:16 Groin, Right Routine Culture - Final Proteus mirabilis So albicans 10/29/24 15:29 Blood - Venous Blood Culture - Final No growth after 5 days. 10/29/24 14:42 Blood - Venous Blood Culture - Final No growth after 5 days. 10/29/24 Unknown Urine Catheterized - Kelly Catheter Urine Culture - Final Escherichia coli Progress Note: A&P Assessment and plan (1) Failure to wean from mechanical ventilation: Status: Acute (2) Ventilator dependent: Status: Acute (3) UTI due to extended-spectrum beta lactamase (ESBL) producing Escherichia coli: Status: Acute Plan Patient is a 79 Y M w/ diabetes mellitus, CHF c/b paroxysmal atrial fibrillation, idiopathic pulmonary fibrosis, prostate cancer c/b recurrent ESBL UTI, and recent pneumonia necessitating admission, presenting to emergency department on 10/29 w/ encephalopathy and purulent urine, c/f UTI c/b septic shock; ICU course c/b shock c/b multi-system organ failure including respiratory failure, intubated on 11/01, w/ persistent respiratory failure, s/p tracheostomy, gastrostomy 11/15, persistent encephalopathy, ,and L groin hematoma c/b hemorrhagic shock necessitating vascular surgery 11/11 N: persistent encephalopathy, likely toxic-metabolic CV: persistent hypotension, unclear etiology, norepinephrine gtt, wean as tolerated R: persistent respiratory failure, likely multi-factorial including encehalopathy, myopathy, s/p tracheostomy 11/15, wean as tolerated GI: s/p gastrostomy 11/15, tube feeds : prostate cancer c/b recurrent ESBL UTIs; to closely monitor renal indices, electrolytes H: L groin hematoma c/b hemorrhagic shock, resolved; DVT prophylaxis w/ enoxaparin SQ ID: prostate cancer c/b recurrent ESBL UTIs, on prolonged course meropenem E: to monitor hypo-/hyper-glycemia S: daily updates regarding guarded clinical status given to patient's son Quality Stroke Does the patient have a stroke diagnosis?: No VTE Prior VTE?: No VTE Risk Level:: Medical - moderate - high VTE Device Contraindication: N/A - Device Ordered VTE Drug Contraindication: N/A - Med Ordered
[2024-11-27] MEDS: Famotidine/PF 20 MG/2 ML VIAL IVPUSH (08:13)
[2024-11-27] MEDS: Enoxaparin Sodium 40 MG/0.4 ML SYRINGE SUBCUT (08:14)
[2024-11-27] MEDS: Albumin Human 25 % 50 ML 100 ML IV (08:14)
[2024-11-27] MEDS: Valproic Acid Liquid 250 MG/5 ML SOLUTION PO ×3 (08:14→20:52)
[2024-11-27] MEDS: Chlorhexidine Gluc Oral Rinse 15 ML MOUTHWASH BUCCAL ×3 (08:14→20:52)
[2024-11-27] MEDS: Furosemide 40 MG/4 ML VIAL IVPUSH ×2 (08:14→17:00)
[2024-11-27] MEDS: Calcium Chloride 1 GM/10 ML SYRINGE IVPUSH (08:14)
[2024-11-27] MEDS: 0.9 % Sodium Chloride Flush 3 ML SYRINGE IVFLUSH ×2 (08:15→14:16)
[2024-11-27] MEDS: acetaZOLAMIDE sodium 500 MG VIAL IVPUSH (08:39)
[2024-11-27 09:01] LABS: Basophils Absolute Auto 0.1 X10*3/uL (0.0-0.2); Basophils Percent Auto 0.5 % (0-2); Eosinophils Absolute Auto 0.2 X10*3/uL (0.0-0.4); Eosinophils Percent Auto 1.4 % (0-4); Hematocrit 23.4 % (42.0-52.0); Hemoglobin 7.4 g/dl (14.0-18.0); Imm Gran Abs Auto 0.08 X10*3/uL (0.00-0.03); Imm Gran Pct Auto 0.5 % (0.0-0.4); Lymphocytes Percent Auto 34.4 % (20-40); MANUAL DIFF FLAG SCAN; Mean Corpuscular HGB Conc 31.6 g/dl (31.0-36.0); Mean Corpuscular Hemoglobin 30.2 pg (27.0-33.0); Mean Corpuscular Volume 95.5 fL (80.0-98.0); Mean Platelet Volume 12.4 fL (9.4-12.4); Monocytes Absolute Auto 1.7 X10*3/uL (0.1-1.2); Monocytes Percent Auto 11.8 % (2-11); Neutrophils Absolute Auto 7.5 x10*3/uL (2.0-8.3); Neutrophils Percent Auto 51.4 % (45-73); Platelet Count 185 X10*3/uL (160-400); Red Blood Count 2.45 X10*6/uL (4.60-5.80); Red Cell Distribution Width 18.2 % (11.0-16.0); SCAN SMEAR FLAG 1; White Blood Count 14.6 X10*3/uL (4.8-10.8)
--- NOTE | 2024-11-27 09:31 | MHC.CLN ---
F/U REVIEWED LABS RECEIVING GLUCERNA 1.0 AT MAX GOAL RATE 90ML/HR WITH 30ML PROSOURCE BID AND 120ML FREE WATER FLUSHES Q 6 HRS PROVIDES 2280KCALS (31KCALS/KG IBW), 120G TOTAL PROTEIN (1.6G/KG IBW), 2322ML TOTAL FREE WATER FROM FORMULA AND FLUSHES (32ML/KG IBW) CONTINUE TO MONITOR TOLERANCE AND LYTES
[2024-11-27 11:14] LABS: Glucose, Whole Blood 185 mg/dL (60-115)
--- NOTE | 2024-11-27 11:31 | PC.RT ---
Pt trialed on PS/CPAP at 0925 this am, matt well however failed trial approx 1120 due to tachypnea into the 40's.
--- NOTE | 2024-11-27 12:20 | PC.RT ---
Pt gurgling and low volumes on vent. Pt has leak from trach cuff. Air added until no leak heard. Cuff pressure checked, reading 70.
--- NOTE | 2024-11-27 13:19 | MHC.CM.PN ---
Pt continues care in ICU: WBC trending up, not tolerating trach collar trials. Clinical updates remitted to [facility]: they are not able to accept pt until his WBC stabilizes and he is able to tolerate some trach trials. Pt's HCP/son Jose has changed pt's status to DNR. CM to follow
[2024-11-27] MEDS: Norepinephrine Bitartrate/D5W 8 MG/250 ML PLAST..BAG 30.7 MG IVCONT (14:17)
[2024-11-27] MEDS: Acetaminophen 1,000 MG/100 ML PIGGYBACK 400 MG IV (16:50)
[2024-11-27 17:05] LABS: Glucose, Whole Blood 194 mg/dL (60-115)
--- NOTE | 2024-11-27 17:19 | PC.NURSE ---
Assumed care at 0700 - patient trach/vent, alert, unable to follow commands. Patient tolerated PSV trial for approx 90mins - tachypnic, low volumes. Care ongoing.
[2024-11-27 23:56] LABS: Glucose, Whole Blood 187 mg/dL (60-115)
[2024-11-28] VITALS (48 sets, daily range): BP systolic 80–133; BP diastolic 43–73; PULSE 74–123; RESP 12–32; TEMP 35.1–38.4; O2SAT 91–96; BMI 30.8
[2024-11-28] MEDS: Meropenem 1 GM VIAL IVPUSH ×3 (00:14→16:15)
[2024-11-28] MEDS: Insulin Lispro 100 UNIT/ML 3 ML VIAL SUBCUT ×4 (00:14→17:13)
[2024-11-28] MEDS: 0.9 % Sodium Chloride Flush 3 ML SYRINGE IVFLUSH ×3 (00:15→14:48)
[2024-11-28] MEDS: HYDROmorphone HCl 0.5 MG/0.5 ML SYRINGE IVPUSH ×2 (00:28→22:51)
[2024-11-28] MEDS: Norepinephrine Bitartrate/D5W 8 MG/250 ML PLAST..BAG 34.31 MG IVCONT (05:26)
[2024-11-28 05:41] LABS: Glucose, Whole Blood 176 mg/dL (60-115)
--- NOTE | 2024-11-28 06:25 | PC.NURSE ---
Assumed care at 1900, pt trach/vent. Remains on ACVC settings - see vent assessment. PRN Dilaudid given with good effect - see MAR. Levophed titrated per NOV.?
[2024-11-28 06:29] LABS: MANUAL DIFF FLAG NO
[2024-11-28 06:30] LABS: Venous Blood Gas Refer to POC result
[2024-11-28 06:32] LABS: VBG Base Excess 17.9 mmol/L; VBG HCO3 41 mmol/L (22-26); VBG pCO2 45 mmHg; VBG pH 7.57 (7.32-7.43); VBG pO2 86 mmHg
[2024-11-28 06:42] LABS: Basophils Absolute Auto 0.1 X10*3/uL (0.0-0.2); Basophils Percent Auto 0.6 % (0-2); Eosinophils Absolute Auto 0.5 X10*3/uL (0.0-0.4); Eosinophils Percent Auto 3.6 % (0-4); Hematocrit 29.3 % (42.0-52.0); Hemoglobin 9.1 g/dl (14.0-18.0); Imm Gran Abs Auto 0.08 X10*3/uL (0.00-0.03); Imm Gran Pct Auto 0.6 % (0.0-0.4); Lymphocytes Percent Auto 29.9 % (20-40); Mean Corpuscular HGB Conc 31.1 g/dl (31.0-36.0); Mean Corpuscular Volume 93.3 fL (80.0-98.0); Mean Platelet Volume 10.8 fL (9.4-12.4); Monocytes Absolute Auto 1.3 X10*3/uL (0.1-1.2); Monocytes Percent Auto 10.1 % (2-11); Neutrophils Absolute Auto 7.3 x10*3/uL (2.0-8.3); Neutrophils Percent Auto 55.2 % (45-73); Platelet Count 246 X10*3/uL (160-400); Red Blood Count 3.14 X10*6/uL (4.60-5.80); White Blood Count 13.2 X10*3/uL (4.8-10.8)
[2024-11-28 06:47] LABS: Albumin Level 2.5 g/dL (3.5-5.0); Anion Gap 13 (12-20); Blood Urea Nitrogen 27 mg/dL (9-16); Calcium 8.6 mg/dL (8.4-10.2); Carbon Dioxide 34 mmol/L (22-29); Chloride 96 mmol/L (96-108); Creatinine Clr Calc Pharmacy 121.2; Estimated Glomerular Filt Rate > 60; Glucose Random 185 mg/dL (60-115); Phosphorus 3.6 mg/dL (2.7-4.5); Potassium 3.7 mmol/L (3.3-5.1); Sodium 139 mmol/L (135-145)
[2024-11-28] MEDS: Enoxaparin Sodium 40 MG/0.4 ML SYRINGE SUBCUT (08:25)
[2024-11-28] MEDS: Famotidine/PF 20 MG/2 ML VIAL IVPUSH (08:25)
[2024-11-28] MEDS: Furosemide 40 MG/4 ML VIAL IVPUSH ×2 (08:25→17:13)
[2024-11-28] MEDS: Valproic Acid Liquid 250 MG/5 ML SOLUTION PO ×2 (08:25→14:47)
[2024-11-28] MEDS: Chlorhexidine Gluc Oral Rinse 15 ML MOUTHWASH BUCCAL ×3 (08:25→20:28)
--- NOTE | 2024-11-28 09:51 | PM.CCPN ---
Subjective Subjective Date of Service: 11/28/24 Interval History: no significant overnight events Critical Care Time (minutes): 60 Physical Exam Vital Signs: Vital Signs: Last Vital Signs Temp 100.9 F H 11/28/24 09:00 Pulse 96 11/28/24 09:00 Resp 25 H 11/28/24 09:00 BP 116/66 11/28/24 09:00 Pulse Ox 95 11/28/24 09:00 O2 Del Method Mechanical Ventil ation 11/28/24 09:00 O2 Flow Rate 35 11/19/24 16:00 FiO2 35 11/28/24 09:00 Oxygen Flow Rate 15 10/29/24 14:07 BMI result Body Mass Index 30.8 Const: Other: intubated; opens eyes to spontaneous stimulus; otherwise no appreciable spontaneous movements General: no acute distress HEENT: Head: Yes normal to inspection, Yes normocephalic and Yes atraumatic Eyes: General: appearance normal, both eyes and all related structures Neck: Neck: Yes normal visual inspection, Yes full ROM, Yes no meningeal signs, Yes trachea midline and Yes supple Chest: Chest palpation & inspection: normal inspection of the chest Resp: Other: no appreciable overt rales, rhonchi, wheezing Effort & Inspection: normal respiratory effort Cardio: Rate: tachycardic Rhythm: abnormal rhythm GI: Inspection: Yes normal to inspection, No Abdominal wall edema and No distended Palpation (GI): Soft to palpation, not firm, nontender, no guarding and not rigid Skin: General skin exam: no rashes or lesions noted Neuro: General: tone normal, No moves all extremities and no meningeal signs Extrem: Other: appreciable 1+ pitting edema to bilateral shins General: Yes normal to inspection, Yes full ROM and Yes capillary refill normal Psych: Other: unable to assess Objective Data Labs 11/28/24 06:22 11/28/24 06:22 Labs: Laboratory Results - last 24 hr 11/27/24 11/27/24 11/27/24 11:10 17:01 23:46 WBC RBC Hgb Hct MCV MCH MCHC RDW Plt Count MPV Immature Gran % (Auto) Neut % (Auto) Lymph % (Auto) [place] % (Auto) Eos % (Auto) Baso % (Auto) Lymph # (Auto) [place] # (Auto) Eos # (Auto) Baso # (Auto) Abs Immat Gran (auto) Absolute Neuts (auto) Absolute Nucleated RBC Nucleated RBC % (auto) VBG pH VBG pCO2 VBG pO2 VBG HCO3 VBG O2 Saturation VBG Base Excess Sodium Potassium Chloride Carbon Dioxide Anion Gap BUN Creatinine Estim Creat Clear Calc Estimated GFR POC Glucose 185 H 194 H 187 H Random Glucose Calcium Phosphorus Magnesium Albumin 11/28/24 11/28/24 11/28/24 05:28 06:22 06:29 WBC 13.2 H RBC 3.14 L D Hgb 9.1 L D Hct 29.3 L D MCV 93.3 MCH 29.0 MCHC 31.1 RDW 18.0 H Plt Count 246 D MPV 10.8 Immature Gran % (Auto) 0.6 H Neut % (Auto) 55.2 Lymph % (Auto) 29.9 [place] % (Auto) 10.1 Eos % (Auto) 3.6 Baso % (Auto) 0.6 Lymph # (Auto) 4.0 [place] # (Auto) 1.3 H Eos # (Auto) 0.5 H Baso # (Auto) 0.1 Abs Immat Gran (auto) 0.08 H Absolute Neuts (auto) 7.3 Absolute Nucleated RBC 0.000 Nucleated RBC % (auto) 0.0 VBG pH 7.57 H VBG pCO2 45 VBG pO2 86 VBG HCO3 41 H VBG O2 Saturation 99.0 VBG Base Excess 17.9 Sodium 139 Potassium 3.7 Chloride 96 Carbon Dioxide 34 H Anion Gap 13 BUN 27 H Creatinine 0.57 Estim Creat Clear Calc 121.2 Estimated GFR > 60 POC Glucose 176 H Random Glucose 185 H Calcium 8.6 Phosphorus 3.6 Magnesium 2.0 Albumin 2.5 L Microbiology Microbiology Results: Microbiology 11/22/24 10:00 Groin, Left Gram Stain - Final 11/22/24 10:00 Groin, Left Routine Culture - Final No growth after 2 days 11/22/24 10:00 Groin, Left Anaerobic Culture - Final NO GROWTH AFTER 5 DAYS 11/21/24 16:36 Groin Gram Stain - Final 11/21/24 16:36 Groin Routine Culture - Final Proteus mirabilis Pseudomonas aeruginosa Pseudomonas aeruginosa#2 11/02/24 09:16 Groin, Right Gram Stain - Final 11/02/24 09:16 Groin, Right Routine Culture - Final Proteus mirabilis So albicans 10/29/24 15:29 Blood - Venous Blood Culture - Final No growth after 5 days. 10/29/24 14:42 Blood - Venous Blood Culture - Final No growth after 5 days. 10/29/24 Unknown Urine Catheterized - Kelly Catheter Urine Culture - Final Escherichia coli Progress Note: A&P Assessment and plan (1) Failure to wean from mechanical ventilation: Status: Acute (2) Ventilator dependent: Status: Acute (3) Encephalopathy: Status: Acute Plan Patient is a 79 Y M w/ diabetes mellitus, CHF c/b paroxysmal atrial fibrillation, idiopathic pulmonary fibrosis, prostate cancer c/b recurrent ESBL UTI, and recent pneumonia necessitating admission, presenting to emergency department on 10/29 w/ encephalopathy and purulent urine, c/f UTI c/b septic shock; ICU course c/b shock c/b multi-system organ failure including respiratory failure, intubated on 11/01, w/ persistent respiratory failure, s/p tracheostomy, gastrostomy 11/15, persistent encephalopathy, and L groin hematoma c/b hemorrhagic shock necessitating vascular surgery 11/11 N: persistent encephalopathy, likely toxic-metabolic despite off sedating gtts CV: persistent hypotension, unclear etiology, norepinephrine gtt, wean as tolerated R: persistent respiratory failure, likely multi-factorial including encehalopathy, myopathy, s/p tracheostomy 11/15, wean as tolerated, though failing to SBT > 1 hour for days GI: s/p gastrostomy 11/15, tube feeds : prostate cancer c/b recurrent ESBL UTIs; to closely monitor renal indices, electrolytes H: L groin hematoma c/b hemorrhagic shock, resolved; DVT prophylaxis w/ enoxaparin SQ ID: prostate cancer c/b recurrent ESBL UTIs, on prolonged course meropenem E: to monitor hypo-/hyper-glycemia S: daily updates regarding guarded clinical status given to patient's son Quality Stroke Does the patient have a stroke diagnosis?: No VTE Prior VTE?: No VTE Risk Level:: Medical - moderate - high VTE Device Contraindication: N/A - Device Ordered VTE Drug Contraindication: N/A - Med Ordered
[2024-11-28] MEDS: Albumin Human 25 % 50 ML 100 ML IV (10:01)
[2024-11-28] MEDS: Acetaminophen 1,000 MG/100 ML PIGGYBACK 400 MG IV (11:15)
[2024-11-28 11:32] LABS: Glucose, Whole Blood 213 mg/dL (60-115)
[2024-11-28] MEDS: Norepinephrine Bitartrate/D5W 8 MG/250 ML PLAST..BAG 23.47 MG IVCONT (13:34)
--- NOTE | 2024-11-28 14:56 | MHC.CM.PN ---
Pt continues care in ICU: febrile and with elevated WBC today: Not clinically stable for [facility] transfer: must show downtrending of WBC and fever. MD trying to contact pt's son for discussion. CM to follow
[2024-11-28 17:04] LABS: Glucose, Whole Blood 205 mg/dL (60-115)
--- NOTE | 2024-11-28 17:47 | PC.NURSE ---
Assumed care at 0700 - patient continues to be trach/vent. Patient unable to tolerate PSV trial - RR mid 40's. Care ongoing.
[2024-11-28] MEDS: dexmedeTOMIDidine HCL/NS 400 MCG/100 ML INFUS..BTL 23.65 MCG IVCONT (23:15)
[2024-11-28] MEDS: Norepinephrine Bitartrate/D5W 8 MG/250 ML PLAST..BAG 19.86 MG IVCONT (23:20)
--- NOTE | 2024-11-28 23:59 | PC.NURSE ---
Pt increasingly restless, resistive to care, reaching for lines/tubes, unable to re-direct. [employer]ICE Eliseo notified. New order for precedex gtt- titrated per NOV.
[2024-11-29] VITALS (38 sets, daily range): BP systolic 86–128; BP diastolic 43–67; PULSE 21–94; RESP 9–83; TEMP 35–38.3; O2SAT 90–98; BMI 30.8
[2024-11-29 00:09] LABS: Glucose, Whole Blood 177 mg/dL (60-115)
[2024-11-29] MEDS: Insulin Lispro 100 UNIT/ML 3 ML VIAL SUBCUT ×5 (00:25→23:46)
[2024-11-29] MEDS: Meropenem 1 GM VIAL IVPUSH ×4 (00:26→23:46)
[2024-11-29] MEDS: 0.9 % Sodium Chloride Flush 3 ML SYRINGE IVFLUSH ×3 (00:26→23:46)
[2024-11-29] MEDS: dexmedeTOMIDidine HCL/NS 400 MCG/100 ML INFUS..BTL 9.46 MCG IVCONT ×2 (05:04→20:45)
[2024-11-29 05:32] LABS: VBG Base Excess 18.5 mmol/L; VBG HCO3 42 mmol/L (22-26); VBG pCO2 48 mmHg; VBG pH 7.55 (7.32-7.43); VBG pO2 41 mmHg
[2024-11-29 05:54] LABS: Venous Blood Gas Refer to POC result
[2024-11-29 05:54] LABS: MANUAL DIFF FLAG NO
[2024-11-29 05:55] LABS: Basophils Absolute Auto 0.1 X10*3/uL (0.0-0.2); Basophils Percent Auto 0.5 % (0-2); Eosinophils Absolute Auto 0.4 X10*3/uL (0.0-0.4); Eosinophils Percent Auto 3.1 % (0-4); Hematocrit 27.6 % (42.0-52.0); Hemoglobin 8.4 g/dl (14.0-18.0); Imm Gran Abs Auto 0.07 X10*3/uL (0.00-0.03); Imm Gran Pct Auto 0.5 % (0.0-0.4); Lymphocytes Absolute Auto 3.8 X10*3/uL (1.2-4.9); Lymphocytes Percent Auto 29.2 % (20-40); Mean Corpuscular HGB Conc 30.4 g/dl (31.0-36.0); Mean Corpuscular Hemoglobin 28.4 pg (27.0-33.0); Mean Corpuscular Volume 93.2 fL (80.0-98.0); Mean Platelet Volume 11.7 fL (9.4-12.4); Monocytes Absolute Auto 1.3 X10*3/uL (0.1-1.2); Monocytes Percent Auto 9.9 % (2-11); Neutrophils Absolute Auto 7.4 x10*3/uL (2.0-8.3); Neutrophils Percent Auto 56.8 % (45-73); Platelet Count 214 X10*3/uL (160-400); Red Blood Count 2.96 X10*6/uL (4.60-5.80); Red Cell Distribution Width 17.6 % (11.0-16.0); White Blood Count 13.1 X10*3/uL (4.8-10.8)
[2024-11-29 06:14] LABS: Glucose, Whole Blood 210 mg/dL (60-115)
[2024-11-29 06:27] LABS: Albumin Level 2.5 g/dL (3.5-5.0); Anion Gap 13 (12-20); Blood Urea Nitrogen 29 mg/dL (9-16); Calcium 8.4 mg/dL (8.4-10.2); Carbon Dioxide 34 mmol/L (22-29); Chloride 93 mmol/L (96-108); Creatinine Clr Calc Pharmacy 117.1; Estimated Glomerular Filt Rate > 60; Glucose Random 212 mg/dL (60-115); Magnesium 2.2 mg/dL (1.6-2.6); Phosphorus 3.6 mg/dL (2.7-4.5); Potassium 3.9 mmol/L (3.3-5.1); Sodium 136 mmol/L (135-145)
[2024-11-29 06:37] LABS: TSH reflex Free T4 4.98 uIU/mL (0.32-4.0)
[2024-11-29 07:15] LABS: Free T4 (Free Thyroxine) 0.83 ng/dL (0.71-1.85)
--- NOTE | 2024-11-29 09:18 | P.PNCC_ITS ---
Subjective Subjective Date of Service: 11/29/24 Interval History: no significant overnight events Critical Care Time (minutes): 60 Physical Exam 2 Vital Signs: Vital Signs: Last Vital Signs Temp 100.6 F H 11/29/24 08:00 Pulse 73 11/29/24 08:00 Resp 22 H 11/29/24 08:00 BP 97/51 L 11/29/24 08:00 Pulse Ox 95 11/29/24 08:00 O2 Del Method Mechanical Ventil ation 11/29/24 08:00 O2 Flow Rate 35 11/19/24 16:00 FiO2 35 11/29/24 08:00 Oxygen Flow Rate 15 10/29/24 14:07 BMI result Body Mass Index 30.8 Const: Other: intubated, minimally sedated; no appreciable tracking; no appreciable purposeful movements HEENT: Head: Yes normal to inspection, Yes normocephalic and Yes atraumatic Eyes: General: appearance normal, both eyes and all related structures Neck: Neck: Yes normal visual inspection, Yes full ROM, Yes no meningeal signs, Yes trachea midline and Yes supple Chest: Chest palpation & inspection: normal inspection of the chest Resp: Other: no appreciable overt rales, rhonchi, wheezing Effort & Inspection: normal respiratory effort Cardio: Rate: regular rate Rhythm: abnormal rhythm GI: Inspection: Yes normal to inspection, No Abdominal wall edema and No distended Palpation (GI): Soft to palpation, not firm, nontender, no guarding and not rigid Skin: Other: L groin bandage, clean, dry, intact Neuro: Other: no appreciable spontaneous movements; no appreciable response to noxious stimulus General: no meningeal signs Extrem: Other: appreciable 1+ pitting edema to bilateral shins General: Yes normal to inspection, Yes full ROM and Yes capillary refill normal Psych: Other: unable to assess Objective Data Labs 11/29/24 05:25 11/29/24 05:30 Labs: Laboratory Results - last 24 hr 11/28/24 11/28/24 11/29/24 11:03 17:00 00:01 WBC RBC Hgb Hct MCV MCH MCHC RDW Plt Count MPV Immature Gran % (Auto) Neut % (Auto) Lymph % (Auto) [place] % (Auto) Eos % (Auto) Baso % (Auto) Lymph # (Auto) [place] # (Auto) Eos # (Auto) Baso # (Auto) Abs Immat Gran (auto) Absolute Neuts (auto) Absolute Nucleated RBC Nucleated RBC % (auto) VBG pH VBG pCO2 VBG pO2 VBG HCO3 VBG O2 Saturation VBG Base Excess Sodium Potassium Chloride Carbon Dioxide Anion Gap BUN Creatinine Estim Creat Clear Calc Estimated GFR POC Glucose 213 H 205 H 177 H Random Glucose Calcium Phosphorus Magnesium Albumin TSH Free T4 11/29/24 11/29/24 11/29/24 05:25 05:28 05:30 WBC 13.1 H RBC 2.96 L Hgb 8.4 L Hct 27.6 L MCV 93.2 MCH 28.4 MCHC 30.4 L RDW 17.6 H Plt Count 214 MPV 11.7 Immature Gran % (Auto) 0.5 H Neut % (Auto) 56.8 Lymph % (Auto) 29.2 [place] % (Auto) 9.9 Eos % (Auto) 3.1 Baso % (Auto) 0.5 Lymph # (Auto) 3.8 [place] # (Auto) 1.3 H Eos # (Auto) 0.4 Baso # (Auto) 0.1 Abs Immat Gran (auto) 0.07 H Absolute Neuts (auto) 7.4 Absolute Nucleated RBC 0.000 Nucleated RBC % (auto) 0.0 VBG pH 7.55 H VBG pCO2 48 VBG pO2 41 VBG HCO3 42 H VBG O2 Saturation 69.0 VBG Base Excess 18.5 Sodium 136 Potassium 3.9 Chloride 93 L Carbon Dioxide 34 H Anion Gap 13 BUN 29 H Creatinine 0.59 Estim Creat Clear Calc 117.1 Estimated GFR > 60 POC Glucose Random Glucose 212 H Calcium 8.4 Phosphorus 3.6 Magnesium 2.2 Albumin 2.5 L TSH 4.98 H Free T4 0.83 11/29/24 06:02 WBC RBC Hgb Hct MCV MCH MCHC RDW Plt Count MPV Immature Gran % (Auto) Neut % (Auto) Lymph % (Auto) [place] % (Auto) Eos % (Auto) Baso % (Auto) Lymph # (Auto) [place] # (Auto) Eos # (Auto) Baso # (Auto) Abs Immat Gran (auto) Absolute Neuts (auto) Absolute Nucleated RBC Nucleated RBC % (auto) VBG pH VBG pCO2 VBG pO2 VBG HCO3 VBG O2 Saturation VBG Base Excess Sodium Potassium Chloride Carbon Dioxide Anion Gap BUN Creatinine Estim Creat Clear Calc Estimated GFR POC Glucose 210 H Random Glucose Calcium Phosphorus Magnesium Albumin TSH Free T4 Microbiology Microbiology Results: Microbiology 11/22/24 10:00 Groin, Left Gram Stain - Final 11/22/24 10:00 Groin, Left Routine Culture - Final No growth after 2 days 11/22/24 10:00 Groin, Left Anaerobic Culture - Final NO GROWTH AFTER 5 DAYS 11/21/24 16:36 Groin Gram Stain - Final 11/21/24 16:36 Groin Routine Culture - Final Proteus mirabilis Pseudomonas aeruginosa Pseudomonas aeruginosa#2 11/02/24 09:16 Groin, Right Gram Stain - Final 11/02/24 09:16 Groin, Right Routine Culture - Final Proteus mirabilis So albicans 10/29/24 15:29 Blood - Venous Blood Culture - Final No growth after 5 days. 10/29/24 14:42 Blood - Venous Blood Culture - Final No growth after 5 days. 10/29/24 Unknown Urine Catheterized - Kelly Catheter Urine Culture - Final Escherichia coli Progress Note: A&P Assessment and plan (1) Failure to wean from mechanical ventilation: Status: Acute (2) Ventilator dependent: Status: Acute (3) Septic shock: Status: Acute (4) UTI due to extended-spectrum beta lactamase (ESBL) producing Escherichia coli: Status: Acute Plan Patient is a 79 Y M w/ diabetes mellitus, CHF c/b paroxysmal atrial fibrillation, idiopathic pulmonary fibrosis, prostate cancer c/b recurrent ESBL UTI, and recent pneumonia necessitating admission, presenting to emergency department on 10/29 w/ encephalopathy and purulent urine, c/f UTI c/b septic shock; ICU course c/b shock c/b multi-system organ failure including respiratory failure, intubated on 11/01, w/ persistent respiratory failure, s/p tracheostomy, gastrostomy 11/15, persistent encephalopathy, and L groin hematoma c/b hemorrhagic shock necessitating vascular surgery 11/11 N: persistent encephalopathy, likely toxic-metabolic despite off sedating gtts CV: persistent hypotension, unclear etiology, norepinephrine gtt, wean as tolerated R: persistent respiratory failure, likely multi-factorial including encehalopathy, myopathy, s/p tracheostomy 11/15, wean as tolerated, though failing to SBT > 1 hour for days GI: s/p gastrostomy 11/15, tube feeds : prostate cancer c/b recurrent ESBL UTIs; to closely monitor renal indices, electrolytes H: L groin hematoma c/b hemorrhagic shock, resolved; DVT prophylaxis w/ enoxaparin SQ ID: prostate cancer c/b recurrent ESBL UTIs, on prolonged course meropenem E: to monitor hypo-/hyper-glycemia S: daily updates regarding guarded clinical status given to patient's son Quality Stroke Does the patient have a stroke diagnosis?: No VTE Prior VTE?: No VTE Risk Level:: Medical - moderate - high VTE Device Contraindication: N/A - Device Ordered VTE Drug Contraindication: N/A - Med Ordered
[2024-11-29] MEDS: Enoxaparin Sodium 40 MG/0.4 ML SYRINGE SUBCUT (09:50)
[2024-11-29] MEDS: Chlorhexidine Gluc Oral Rinse 15 ML MOUTHWASH BUCCAL ×3 (09:50→20:45)
[2024-11-29] MEDS: Furosemide 40 MG/4 ML VIAL IVPUSH ×2 (09:51→18:44)
[2024-11-29] MEDS: Famotidine/PF 20 MG/2 ML VIAL IVPUSH (09:51)
--- NOTE | 2024-11-29 09:51 | MHC.CLN ---
F/U DISCUSSED AT ROUNDS WITH REVIEWED LABS RECEIVING GLUCERNA 1.0 AT MAX GOAL RATE 90ML/HR WITH 30ML PROSOURCE BID AND 120ML FREE WATER FLUSHES Q 6 HRS PROVIDES 2280KCALS (31KCALS/KG IBW), 120G TOTAL PROTEIN (1.6G/KG IBW), 2322ML TOTAL FREE WATER FROM FORMULA AND FLUSHES (32ML/KG IBW) CONTINUE TO MONITOR TOLERANCE AND LYTES
[2024-11-29] MEDS: Norepinephrine Bitartrate/D5W 8 MG/250 ML PLAST..BAG 23.47 MG IVCONT ×2 (10:09→19:44)
[2024-11-29] MEDS: Albumin Human 25 % 100 ML 133.33 ML IV ×2 (11:24→12:57)
[2024-11-29 12:13] LABS: Glucose, Whole Blood 192 mg/dL (60-115)
[2024-11-29] MEDS: vancomycin/NS 2,000 MG/500 ML PLAST..BAG 250 MG IV (12:57)
--- NOTE | 2024-11-29 13:41 | PHA.PROG ---
Admission Date/Time: October 29, 2024 23:02 Indication: Skin Weight in k.6 kg Adjusted body weight in Kg: [place] body weight in Kg: Obesity Dosing Indication % IBW: Serum Creatinine - Last 168 Hours 11/23/24 11/24/24 11/25/24 04:22 05:22 04:54 Creatinine 0.54 0.52 0.55 11/26/24 11/27/24 11/28/24 04:14 04:40 06:22 Creatinine 0.54 0.52 0.57 11/29/24 05:30 Creatinine 0.59 Estimated CrCl and GFR - Last 168 Hours 11/23/24 11/24/24 11/25/24 04:22 05:22 04:54 Estim Creat Clear Calc 132.3 138.1 130.6 Estimated GFR > 60 > 60 > 60 11/26/24 11/27/24 11/28/24 04:14 04:40 06:22 Estim Creat Clear Calc 130.0 134.4 121.2 Estimated GFR > 60 > 60 > 60 11/29/24 05:30 Estim Creat Clear Calc 117.1 Estimated GFR > 60 Vancomycin Loading Dose: 2000mg Current Vancomycin Dosing Regimen: 1250mg q12h Vancomycin Monitoring using AUC goal of 400 - 600 range with trough as surrogate marker: 491mg/h Date and Time for next Vancomycin Level to be drawn:11/30/2024 @1300 Vancomycin Trough 21.0 mcg/mL (10.0-20.0) H 11/04/24 08:11 Pharmacist Comments on Vancomycin Plan: Vancomycin dosing will take advantage of [employer] as a clinical decision support tool that uses Bayesian modeling to calculate individual patient's pharmacokinetic parameters and forecast the patient's drug concentration time course with the target goal AUC 24 range of 400 - 600 mg/L/hr.
--- NOTE | 2024-11-29 13:44 | MHC.CM.PN ---
Pt remains intubated: not able to tolerate trach mask or PSV. Pt restarted on Levo for hypotension : required Precedex gtt for overnight agitation. Clinical updates remitted to [facility]. Pt is not stable for transport today. Pt must show a downward trend with WBC, fever and Levo gtt must be d/c'd. CM to update facility on 12/01.
--- NOTE | 2024-11-29 14:10 | HO.WOUND ---
Wound Consult: Follow up 79yr old?male admitted to [facility] on 10/29/24 - See progress notes and H&P for detailed history.? Wound consult follow up for multiple skin integrity issues. Overall his wounds continue to improve initially they were classified in some cases as pressure injuries however given his current clinical picture these wounds and characteristics are consistent with Ischemia / Acute Skin Failure and thrombocytopenia presentations. Acute Skin Failure can be caused by ischemia secondary to poor perfusion related to septic shock with multiorgan faliure.? The patients ICU stay is marked by septic shock necessitating vasopressors, respiratory failure necessitating ventilatory support. Acute Skin Failure may occur despite the implementation of proper preventative measures.? The Trach site continues with redness however new trach ties recently applied and the area remains mainly blanchable given plate site it is difficult to see under plate there is mild MASD noted to the area will monitor. ICU staff ran out of Allevyn Classic nonadherent foam dressing advised to call storeroom to obtain more. The foam is better than the gauze since it will off load the pressure in addision to absorb the moisture. No new topical orders needed at this time. continue to off load Vent tubing with small towel roll continue to use foam dressing under Trach to redistribute pressure. The right cheek and lip have resolved some pigmentation changes and dry flaking skin noted - no topical interventions needed at this time. Right skin fold Left Abdomen The right groin continues with MASD - Intertrigo - some yellow slough with smaller openings noted. The abdominal skin fold continued with intertrigo Durafiber and Interdry in use. The buttock and perineal area was not assessed today. Sacrum Etiology: ??Improving Ischemia vs Acute Skin Failure - Previously documented as Resurfacing - Stage 2 Pressure Injury and DTI Present on Admission Wound Bed: red tissue with central adherent yellow slough Edges: ? irregular Goals of Treatment: ? Triad and off load pressure Left Anterior thigh incision - Vascular consulted given photo review and concern for boggy central necrotic area reported by direct care team. May continue with durafiber but Vascular should assess for debridement. ISO Tour ARNOLD mattress in use - Heel protector boots in place and Q 2 hr turns and wedges at bedside observed. Recommendations: 1. Turn and Reposition every 2 hours and as needed for patient comfort.? Use pillows or wedges to support off loading positions. 2. Off Load all bony prominences with use of pillows and heel boots if needed.? Apply Preventative foams where needed. ? 3. Monitor for incontinence and moisture control, use barrier creams when needed for prevention and treatment. 4. Provide adequate and supplemental nutrition.? 5. Continue low air loss mattress. 6. When applicable maintain blood glucose levels per Providers order. 7. Sacrum - Off Load Pressure with Q2 hr turns and use of pillows - Cleanse with PH balance spray or wipes, pat dry. ?Apply thin layer of Triad to sacrum and buttock - only pat and dab no scrub and rub when soiling occurs. Reapply thin layer PRN after each episode of incontinence. 8. Posterior Groin - Cleanse with Ph balances wipes, pat dry. Apply thin layer of Triad to sacrum and buttock - only pat and dab no scrub and rub when soiling occurs. Reapply thin layer PRN after each episode of incontinence. 9. Right Anterior Groin: Cleanse with NS moist gauze, pat dry. Apply skin prep to periwound. Cover wound bed with Durafiber AG followed by dry gauze occlusive dressing. Change every other day. Given the area is with in his groin and skin fold monitor for saturation and change PRN. 10. Abdominal skin folds - Continue with Interdry and Durafiber application. 11. Left thigh incision - Cleanse with NS moist gauze, Apply layer of durafiber AG, cover with dry ABD pad. Change every other day. Recommend vascular consult to assess for debirdement. Re-consult wound care Nurse for wound deterioration or wound changes.
--- NOTE | 2024-11-29 15:33 | W.MHC.ACPN ---
Advanced Care Planning Note Advanced Care Planning Note Discussed with: family member(s) Time spent (in minutes): 10 Narrative: of note, patient's healthcare proxy/son was reachable via phone today; I offered updates; patient's son stated family has discussed and plans to transition philosophy of care to comfort-focused care later this week; I offered to discuss in person; patient's son stated he will reach out when family is available Problems Discussed (1) Failure to wean from mechanical ventilation: (2) Ventilator dependent: (3) Septic shock: (4) UTI due to extended-spectrum beta lactamase (ESBL) producing Escherichia coli:
[2024-11-29 17:17] LABS: Glucose, Whole Blood 188 mg/dL (60-115)
[2024-11-29 23:37] LABS: Glucose, Whole Blood 212 mg/dL (60-115)
[2024-11-30] VITALS (42 sets, daily range): BP systolic 81–143; BP diastolic 41–67; PULSE 65–92; RESP 12–27; TEMP 34.9–38.4; O2SAT 93–100; BMI 31.3
[2024-11-30] MEDS: vancomycin HCL 1,250 MG in 0.9 % Sodium Chloride 250 ML 166.67 MG IV (02:55)
[2024-11-30 05:30] LABS: VBG HCO3 43 mmol/L (22-26); VBG pCO2 46 mmHg; VBG pH 7.57 (7.32-7.43); VBG pO2 42 mmHg
[2024-11-30 05:43] LABS: MANUAL DIFF FLAG NO
[2024-11-30 05:49] LABS: Basophils Absolute Auto 0.1 X10*3/uL (0.0-0.2); Basophils Percent Auto 0.4 % (0-2); Eosinophils Absolute Auto 0.4 X10*3/uL (0.0-0.4); Eosinophils Percent Auto 3.2 % (0-4); Hematocrit 27.8 % (42.0-52.0); Hemoglobin 8.5 g/dl (14.0-18.0); Imm Gran Abs Auto 0.09 X10*3/uL (0.00-0.03); Imm Gran Pct Auto 0.7 % (0.0-0.4); Lymphocytes Absolute Auto 3.3 X10*3/uL (1.2-4.9); Lymphocytes Percent Auto 26.5 % (20-40); Mean Corpuscular HGB Conc 30.6 g/dl (31.0-36.0); Mean Corpuscular Hemoglobin 28.4 pg (27.0-33.0); Mean Platelet Volume 11.4 fL (9.4-12.4); Monocytes Absolute Auto 1.1 X10*3/uL (0.1-1.2); Monocytes Percent Auto 8.7 % (2-11); Neutrophils Absolute Auto 7.6 x10*3/uL (2.0-8.3); Neutrophils Percent Auto 60.5 % (45-73); Platelet Count 193 X10*3/uL (160-400); Red Blood Count 2.99 X10*6/uL (4.60-5.80); Red Cell Distribution Width 17.3 % (11.0-16.0); White Blood Count 12.6 X10*3/uL (4.8-10.8)
[2024-11-30 05:50] LABS: Venous Blood Gas Refer to POC result
[2024-11-30 06:00] LABS: Albumin Level 2.7 g/dL (3.5-5.0); Anion Gap 12 (12-20); Blood Urea Nitrogen 27 mg/dL (9-16); Calcium 8.5 mg/dL (8.4-10.2); Carbon Dioxide 33 mmol/L (22-29); Chloride 97 mmol/L (96-108); Creatinine Clr Calc Pharmacy 131.5; Estimated Glomerular Filt Rate > 60; Glucose Random 204 mg/dL (60-115); Magnesium 2.2 mg/dL (1.6-2.6); Potassium 3.8 mmol/L (3.3-5.1); Sodium 138 mmol/L (135-145)
[2024-11-30] MEDS: Insulin Lispro 100 UNIT/ML 3 ML VIAL SUBCUT ×4 (06:05→23:52)
[2024-11-30] MEDS: Norepinephrine Bitartrate/D5W 8 MG/250 ML PLAST..BAG 19.86 MG IVCONT ×2 (06:06→18:17)
[2024-11-30] MEDS: dexmedeTOMIDidine HCL/NS 400 MCG/100 ML INFUS..BTL 9.46 MCG IVCONT ×2 (06:06→16:32)
[2024-11-30] MEDS: Albumin Human 25 % 50 ML 100 ML IV ×4 (08:03→09:42)
[2024-11-30] MEDS: Chlorhexidine Gluc Oral Rinse 15 ML MOUTHWASH BUCCAL ×3 (08:03→20:25)
[2024-11-30] MEDS: Meropenem 1 GM VIAL IVPUSH ×2 (08:03→16:32)
[2024-11-30] MEDS: Famotidine/PF 20 MG/2 ML VIAL IVPUSH (08:03)
[2024-11-30] MEDS: 0.9 % Sodium Chloride Flush 3 ML SYRINGE IVFLUSH ×3 (08:03→23:52)
[2024-11-30] MEDS: Furosemide 40 MG/4 ML VIAL IVPUSH (08:03)
[2024-11-30] MEDS: Enoxaparin Sodium 40 MG/0.4 ML SYRINGE SUBCUT (08:15)
--- NOTE | 2024-11-30 09:40 | PM.CCPN ---
Subjective Subjective Date of Service: 11/30/24 Interval History: no significant overnight events Critical Care Time (minutes): 60 Physical Exam Vital Signs: Vital Signs: Last Vital Signs Temp 100.9 F H 11/30/24 09:00 Pulse 75 11/30/24 09:00 Resp 22 H 11/30/24 09:00 BP 103/54 L 11/30/24 09:00 Pulse Ox 97 11/30/24 09:00 O2 Del Method Mechanical Ventil ation 11/30/24 09:00 O2 Flow Rate 35 11/19/24 16:00 FiO2 35 11/30/24 09:00 Oxygen Flow Rate 15 10/29/24 14:07 BMI result Body Mass Index 31.3 Const: Other: no appreciable spontaneous movements; no response to verbal, noxious stimulus General: no acute distress HEENT: Head: Yes normal to inspection, Yes normocephalic and Yes atraumatic Eyes: General: appearance normal, both eyes and all related structures Neck: Neck: Yes normal visual inspection, Yes full ROM, Yes no meningeal signs, Yes trachea midline and Yes supple Chest: Chest palpation & inspection: normal inspection of the chest Resp: Other: no appreciable overt rales, rhonchi, wheezing Effort & Inspection: normal respiratory effort Cardio: Rate: regular rate Rhythm: abnormal rhythm GI: Inspection: Yes normal to inspection, No Abdominal wall edema and No distended Palpation (GI): Soft to palpation, not firm, nontender, no guarding and not rigid Skin: General skin exam: no rashes or lesions noted Neuro: General: tone normal and no meningeal signs Extrem: Other: appreciable 1+ pitting edema to bilateral shins General: Yes normal to inspection, Yes full ROM and Yes capillary refill normal Psych: Other: unable to assess Objective Data Labs 11/30/24 05:22 11/30/24 05:22 Labs: Laboratory Results - last 24 hr 11/29/24 11/29/24 11/29/24 12:02 17:04 23:22 WBC RBC Hgb Hct MCV MCH MCHC RDW Plt Count MPV Immature Gran % (Auto) Neut % (Auto) Lymph % (Auto) [place] % (Auto) Eos % (Auto) Baso % (Auto) Lymph # (Auto) [place] # (Auto) Eos # (Auto) Baso # (Auto) Abs Immat Gran (auto) Absolute Neuts (auto) Absolute Nucleated RBC Nucleated RBC % (auto) VBG pH VBG pCO2 VBG pO2 VBG HCO3 VBG O2 Saturation VBG Base Excess Sodium Potassium Chloride Carbon Dioxide Anion Gap BUN Creatinine Estim Creat Clear Calc Estimated GFR POC Glucose 192 H 188 H 212 H Random Glucose Calcium Phosphorus Magnesium Albumin 11/30/24 11/30/24 05:22 05:26 WBC 12.6 H RBC 2.99 L Hgb 8.5 L Hct 27.8 L MCV 93.0 MCH 28.4 MCHC 30.6 L RDW 17.3 H Plt Count 193 MPV 11.4 Immature Gran % (Auto) 0.7 H Neut % (Auto) 60.5 Lymph % (Auto) 26.5 [place] % (Auto) 8.7 Eos % (Auto) 3.2 Baso % (Auto) 0.4 Lymph # (Auto) 3.3 [place] # (Auto) 1.1 Eos # (Auto) 0.4 Baso # (Auto) 0.1 Abs Immat Gran (auto) 0.09 H Absolute Neuts (auto) 7.6 Absolute Nucleated RBC 0.000 Nucleated RBC % (auto) 0.0 VBG pH 7.57 H VBG pCO2 46 VBG pO2 42 VBG HCO3 43 H VBG O2 Saturation 73.0 VBG Base Excess 19.0 Sodium 138 Potassium 3.8 Chloride 97 Carbon Dioxide 33 H Anion Gap 12 BUN 27 H Creatinine 0.53 Estim Creat Clear Calc 131.5 Estimated GFR > 60 POC Glucose Random Glucose 204 H Calcium 8.5 Phosphorus 3.0 Magnesium 2.2 Albumin 2.7 L Microbiology Microbiology Results: Microbiology 11/22/24 10:00 Groin, Left Gram Stain - Final 11/22/24 10:00 Groin, Left Routine Culture - Final No growth after 2 days 11/22/24 10:00 Groin, Left Anaerobic Culture - Final NO GROWTH AFTER 5 DAYS 11/21/24 16:36 Groin Gram Stain - Final 11/21/24 16:36 Groin Routine Culture - Final Proteus mirabilis Pseudomonas aeruginosa Pseudomonas aeruginosa#2 11/02/24 09:16 Groin, Right Gram Stain - Final 11/02/24 09:16 Groin, Right Routine Culture - Final Proteus mirabilis So albicans 10/29/24 15:29 Blood - Venous Blood Culture - Final No growth after 5 days. 10/29/24 14:42 Blood - Venous Blood Culture - Final No growth after 5 days. 10/29/24 Unknown Urine Catheterized - Kelly Catheter Urine Culture - Final Escherichia coli Progress Note: A&P Assessment and plan (1) Failure to wean from mechanical ventilation: Status: Acute (2) Ventilator dependent: Status: Acute Plan Patient is a 79 Y M w/ diabetes mellitus, CHF c/b paroxysmal atrial fibrillation, idiopathic pulmonary fibrosis, prostate cancer c/b recurrent ESBL UTI, and recent pneumonia necessitating admission, presenting to emergency department on 10/29 w/ encephalopathy and purulent urine, c/f UTI c/b septic shock; ICU course c/b shock c/b multi-system organ failure including respiratory failure, intubated on 11/01, w/ persistent respiratory failure, s/p tracheostomy, gastrostomy 11/15, persistent encephalopathy, and L groin hematoma c/b hemorrhagic shock necessitating vascular surgery 11/11 N: persistent encephalopathy, likely toxic-metabolic despite off sedating gtts CV: persistent hypotension, unclear etiology, norepinephrine gtt, wean as tolerated R: persistent respiratory failure, likely multi-factorial including encephalopathy, myopathy, s/p tracheostomy 11/15, wean as tolerated, though failing to SBT > 1 hour for days GI: s/p gastrostomy 11/15, tube feeds : prostate cancer c/b recurrent ESBL UTIs; to closely monitor renal indices, electrolytes H: L groin hematoma c/b hemorrhagic shock, resolved; DVT prophylaxis w/ enoxaparin SQ ID: prostate cancer c/b recurrent ESBL UTIs, on prolonged course meropenem; L groin surgical site w/ purulence, vancomycin E: to monitor hypo-/hyper-glycemia S: daily updates regarding guarded clinical status given to patient's son; son stated will likely transition to comfort-focused care in upcoming days Quality Stroke Does the patient have a stroke diagnosis?: No VTE Prior VTE?: No VTE Risk Level:: Medical - moderate - high VTE Device Contraindication: N/A - Device Ordered VTE Drug Contraindication: N/A - Med Ordered
[2024-11-30] MEDS: Acetaminophen 1,000 MG/100 ML PIGGYBACK 400 MG IV ×2 (10:58→19:42)
[2024-11-30 11:21] LABS: Glucose, Whole Blood 193 mg/dL (60-115)
--- NOTE | 2024-11-30 12:33 | MHC.CM.PN ---
Pt continues care in ICU: s/p trach/peg: WBC at 12.6 today - still on Levo gtt for BP support: [facility] following for clinical stability. was able to contact pt's HCP/Son Jose to discuss failure of pt to make progress - son will discuss [employer] with other family members. CM to update [facility] on 12/01.
--- NOTE | 2024-11-30 13:29 | HE.PHANOTE ---
Re Vanco Level came back at 33.0 mg/L, much higher than anticipated. Will hold dose and change to 1250mg q24h so start tomorrow. Will get a random to ensure drug has adequately cleared before resuming.
[2024-11-30] MEDS: Furosemide 40 MG/4 ML VIAL 60 MG IVPUSH (17:04)
[2024-11-30 17:17] LABS: Glucose, Whole Blood 201 mg/dL (60-115)
[2024-11-30 23:46] LABS: Glucose, Whole Blood 208 mg/dL (60-115)
[2024-12-01] VITALS (42 sets, daily range): BP systolic 76–126; BP diastolic 40–67; PULSE 66–104; RESP 12–25; TEMP 34.9–38.7; O2SAT 90–98; BMI 31.4
[2024-12-01] MEDS: Meropenem 1 GM VIAL IVPUSH ×3 (00:46→16:26)
[2024-12-01] MEDS: dexmedeTOMIDidine HCL/NS 400 MCG/100 ML INFUS..BTL 9.46 MCG IVCONT ×2 (03:14→13:48)
[2024-12-01 05:00] LABS: MANUAL DIFF FLAG NO
[2024-12-01 05:03] LABS: Basophils Absolute Auto 0.1 X10*3/uL (0.0-0.2); Basophils Percent Auto 0.5 % (0-2); Eosinophils Absolute Auto 0.4 X10*3/uL (0.0-0.4); Eosinophils Percent Auto 3.6 % (0-4); Hematocrit 27.5 % (42.0-52.0); Hemoglobin 8.4 g/dl (14.0-18.0); Imm Gran Abs Auto 0.07 X10*3/uL (0.00-0.03); Imm Gran Pct Auto 0.6 % (0.0-0.4); Lymphocytes Absolute Auto 4.5 X10*3/uL (1.2-4.9); Lymphocytes Percent Auto 37.3 % (20-40); Mean Corpuscular HGB Conc 30.5 g/dl (31.0-36.0); Mean Corpuscular Hemoglobin 28.3 pg (27.0-33.0); Mean Corpuscular Volume 92.6 fL (80.0-98.0); Mean Platelet Volume 10.9 fL (9.4-12.4); Monocytes Absolute Auto 1.1 X10*3/uL (0.1-1.2); Monocytes Percent Auto 9.2 % (2-11); Neutrophils Absolute Auto 5.9 x10*3/uL (2.0-8.3); Neutrophils Percent Auto 48.8 % (45-73); Platelet Count 172 X10*3/uL (160-400); Red Blood Count 2.97 X10*6/uL (4.60-5.80); Red Cell Distribution Width 17.2 % (11.0-16.0); White Blood Count 12.2 X10*3/uL (4.8-10.8)
[2024-12-01 05:05] LABS: VBG Base Excess 18.4 mmol/L; VBG HCO3 42 mmol/L (22-26); VBG pCO2 44 mmHg; VBG pH 7.58 (7.32-7.43); VBG pO2 47 mmHg
[2024-12-01 05:18] LABS: Venous Blood Gas Refer to POC result
[2024-12-01 05:21] LABS: Albumin Level 2.8 g/dL (3.5-5.0); Anion Gap 12 (12-20); Blood Urea Nitrogen 28 mg/dL (9-16); Calcium 8.9 mg/dL (8.4-10.2); Carbon Dioxide 34 mmol/L (22-29); Chloride 96 mmol/L (96-108); Creatinine Clr Calc Pharmacy 124.4; Estimated Glomerular Filt Rate > 60; Glucose Random 194 mg/dL (60-115); Magnesium 2.3 mg/dL (1.6-2.6); Phosphorus 3.4 mg/dL (2.7-4.5); Sodium 138 mmol/L (135-145)
[2024-12-01] MEDS: Albumin Human 25 % 50 ML 100 ML IV ×3 (06:09→10:37)
[2024-12-01] MEDS: Insulin Lispro 100 UNIT/ML 3 ML VIAL SUBCUT ×3 (06:10→17:22)
[2024-12-01] MEDS: Norepinephrine Bitartrate/D5W 8 MG/250 ML PLAST..BAG 16.25 MG IVCONT (06:38)
[2024-12-01] MEDS: 0.9 % Sodium Chloride Flush 3 ML SYRINGE IVFLUSH ×2 (07:11→15:21)
[2024-12-01] MEDS: Chlorhexidine Gluc Oral Rinse 15 ML MOUTHWASH BUCCAL ×3 (08:51→19:58)
[2024-12-01] MEDS: Enoxaparin Sodium 40 MG/0.4 ML SYRINGE SUBCUT (08:51)
[2024-12-01] MEDS: Famotidine/PF 20 MG/2 ML VIAL IVPUSH (08:52)
[2024-12-01] MEDS: Furosemide 40 MG/4 ML VIAL 60 MG IVPUSH ×2 (08:52→17:23)
--- NOTE | 2024-12-01 09:31 | MHC.CLN ---
F/U REVIEWED LABS PT RECEIVING GLUCERNA 1.0 AT MAX GOAL RATE 90ML/HR WITH 30ML PROSOURCE BID AND 120ML FREE WATER FLUSHES Q 6 HRS PROVIDES 2280KCALS (31KCALS/KG IBW), 120G TOTAL PROTEIN (1.6G/KG IBW), 2322ML TOTAL FREE WATER FROM FORMULA AND FLUSHES (32ML/KG IBW) CONTINUE TO MONITOR TOLERANCE AND LYTES
--- NOTE | 2024-12-01 09:43 | P.PNCC_ITS ---
Subjective Subjective Date of Service: 12/01/24 Interval History: no significant overnight events Critical Care Time (minutes): 60 Physical Exam 2 Vital Signs: Vital Signs: Last Vital Signs Temp 100.6 F H 12/01/24 08:00 Pulse 78 12/01/24 08:00 Resp 18 12/01/24 08:00 BP 109/58 L 12/01/24 08:00 Pulse Ox 95 12/01/24 08:00 O2 Del Method Mechanical Ventil ation 12/01/24 08:00 O2 Flow Rate 35 11/19/24 16:00 FiO2 35 12/01/24 08:22 Oxygen Flow Rate 15 10/29/24 14:07 BMI result Body Mass Index 31.4 Const: General: no acute distress, well developed and alert HEENT: Head: Yes normal to inspection, Yes normocephalic and Yes atraumatic Eyes: General: appearance normal, both eyes and all related structures Neck: Other: tracheostomy clean, dry, intact Neck: Yes normal visual inspection, Yes full ROM, Yes no meningeal signs and Yes trachea midline Chest: Chest palpation & inspection: normal inspection of the chest Resp: Other: no appreciable overt rales, rhonchi, wheezing Cardio: Rate: regular rate Rhythm: abnormal rhythm GI: Inspection: Yes normal to inspection, No Abdominal wall edema and No distended Palpation (GI): Soft to palpation, not firm, nontender, no guarding and not rigid Skin: Other: L groin bandaged Neuro: Other: no appreciable spontaneous movements General: tone normal and no meningeal signs Extrem: General: Yes normal to inspection, Yes full ROM, Yes capillary refill normal and Yes no clubbing, cyanosis or edema Psych: Appearance: grossly normal Objective Data Labs 12/01/24 04:52 12/01/24 04:52 Labs: Laboratory Results - last 24 hr 11/30/24 11/30/24 11/30/24 11:05 12:48 17:01 WBC RBC Hgb Hct MCV MCH MCHC RDW Plt Count MPV Immature Gran % (Auto) Neut % (Auto) Lymph % (Auto) [place] % (Auto) Eos % (Auto) Baso % (Auto) Lymph # (Auto) [place] # (Auto) Eos # (Auto) Baso # (Auto) Abs Immat Gran (auto) Absolute Neuts (auto) Absolute Nucleated RBC Nucleated RBC % (auto) VBG pH VBG pCO2 VBG pO2 VBG HCO3 VBG O2 Saturation VBG Base Excess Sodium Potassium Chloride Carbon Dioxide Anion Gap BUN Creatinine Estim Creat Clear Calc Estimated GFR POC Glucose 193 H 201 H Random Glucose Calcium Phosphorus Magnesium Albumin Random Vancomycin 33.0 H* 11/30/24 12/01/24 12/01/24 23:33 04:52 05:01 WBC 12.2 H RBC 2.97 L Hgb 8.4 L Hct 27.5 L MCV 92.6 MCH 28.3 MCHC 30.5 L RDW 17.2 H Plt Count 172 MPV 10.9 Immature Gran % (Auto) 0.6 H Neut % (Auto) 48.8 Lymph % (Auto) 37.3 [place] % (Auto) 9.2 Eos % (Auto) 3.6 Baso % (Auto) 0.5 Lymph # (Auto) 4.5 [place] # (Auto) 1.1 Eos # (Auto) 0.4 Baso # (Auto) 0.1 Abs Immat Gran (auto) 0.07 H Absolute Neuts (auto) 5.9 Absolute Nucleated RBC 0.000 Nucleated RBC % (auto) 0.0 VBG pH 7.58 H VBG pCO2 44 VBG pO2 47 VBG HCO3 42 H VBG O2 Saturation 81.0 VBG Base Excess 18.4 Sodium 138 Potassium 4.0 Chloride 96 Carbon Dioxide 34 H Anion Gap 12 BUN 28 H Creatinine 0.56 Estim Creat Clear Calc 124.4 Estimated GFR > 60 POC Glucose 208 H Random Glucose 194 H Calcium 8.9 Phosphorus 3.4 Magnesium 2.3 Albumin 2.8 L Random Vancomycin Microbiology Microbiology Results: Microbiology 11/22/24 10:00 Groin, Left Gram Stain - Final 11/22/24 10:00 Groin, Left Routine Culture - Final No growth after 2 days 11/22/24 10:00 Groin, Left Anaerobic Culture - Final NO GROWTH AFTER 5 DAYS 11/21/24 16:36 Groin Gram Stain - Final 11/21/24 16:36 Groin Routine Culture - Final Proteus mirabilis Pseudomonas aeruginosa Pseudomonas aeruginosa#2 11/02/24 09:16 Groin, Right Gram Stain - Final 11/02/24 09:16 Groin, Right Routine Culture - Final Proteus mirabilis So albicans 10/29/24 15:29 Blood - Venous Blood Culture - Final No growth after 5 days. 10/29/24 14:42 Blood - Venous Blood Culture - Final No growth after 5 days. 10/29/24 Unknown Urine Catheterized - Kelly Catheter Urine Culture - Final Escherichia coli Progress Note: A&P Assessment and plan (1) Failure to wean from mechanical ventilation: Status: Acute (2) Ventilator dependent: Status: Acute (3) Hypotension: Status: Acute Plan Patient is a 79 Y M w/ diabetes mellitus, CHF c/b paroxysmal atrial fibrillation, idiopathic pulmonary fibrosis, prostate cancer c/b recurrent ESBL UTI, and recent pneumonia necessitating admission, presenting to emergency department on 10/29 w/ encephalopathy and purulent urine, c/f UTI c/b septic shock; ICU course c/b shock c/b multi-system organ failure including respiratory failure, intubated on 11/01, w/ persistent respiratory failure, s/p tracheostomy, gastrostomy 11/15, persistent encephalopathy, and L groin hematoma c/b hemorrhagic shock necessitating vascular surgery 11/11 N: persistent encephalopathy, likely toxic-metabolic despite off sedating gtts CV: persistent hypotension, unclear etiology, norepinephrine gtt, wean as tolerated R: persistent respiratory failure, likely multi-factorial including encephalopathy, myopathy, s/p tracheostomy 11/15, wean as tolerated, though failing to SBT > 1 hour for days GI: s/p gastrostomy 11/15, tube feeds : prostate cancer c/b recurrent ESBL UTIs; to closely monitor renal indices, electrolytes H: L groin hematoma c/b hemorrhagic shock, resolved; DVT prophylaxis w/ enoxaparin SQ ID: prostate cancer c/b recurrent ESBL UTIs, on prolonged course meropenem; L groin surgical site w/ purulence, vancomycin E: to monitor hypo-/hyper-glycemia S: daily updates regarding guarded clinical status given to patient's son; son stated will likely transition to comfort-focused care in upcoming day Quality Stroke Does the patient have a stroke diagnosis?: No VTE Prior VTE?: No VTE Risk Level:: Medical - moderate - high VTE Device Contraindication: N/A - Device Ordered VTE Drug Contraindication: N/A - Med Ordered
[2024-12-01 11:43] LABS: Glucose, Whole Blood 180 mg/dL (60-115)
--- NOTE | 2024-12-01 11:46 | MHC.CM.PN ---
Pt continues w/fever, slightly elevated WBC: not able to tolerate trach mask, on Levophed: MD has daily conversations w/pt's HCP/son: so to transition pt to [employer] care in the next day or two. Pt had been referred to [facility] following trach placement. CM to follow.
[2024-12-01 13:29] LABS: Vancomycin Random 24.7 mcg/mL (15-20)
[2024-12-01] MEDS: Acetaminophen 1,000 MG/100 ML PIGGYBACK 400 MG IV (16:40)
[2024-12-01 17:45] LABS: Glucose, Whole Blood 183 mg/dL (60-115)
[2024-12-01] MEDS: Norepinephrine Bitartrate/D5W 8 MG/250 ML PLAST..BAG 23.47 MG IVCONT (19:17)
--- NOTE | 2024-12-01 19:17 | PC.NURSE ---
assumed care of patient 0700 12/01/24 patient unable to ween on vent. PSV trial failed today. Less than 30min on PSV setting before requiring to be switched back to ACVC+ unable to ween pressors due to hypertensive episode this afternoon, see titrations in NOV. patient remains calm on DEX (infusing per NOV). alerts to touch and occasionally to voice, able to make needs known with head nods intermittently. new skin photos uploaded by this RN today... see separate skin note handed off 1900 on 12/01/24
--- NOTE | 2024-12-01 19:28 | PC.NURSE ---
L groin surgical incision update photo 12/01/24 R forearm rash related to blood bank bracelet Under Trach upen area and unblanching redness SAME PHOTO OF TRACH ZOOMED IN
[2024-12-02] VITALS (41 sets, daily range): BP systolic 89–125; BP diastolic 42–78; PULSE 68–98; RESP 12–27; TEMP 35–38.5; O2SAT 91–100; BMI 31.9
[2024-12-02] MEDS: dexmedeTOMIDidine HCL/NS 400 MCG/100 ML INFUS..BTL 9.46 MCG IVCONT (00:08)
[2024-12-02] MEDS: 0.9 % Sodium Chloride Flush 3 ML SYRINGE IVFLUSH ×4 (00:11→19:23)
[2024-12-02 00:15] LABS: Glucose, Whole Blood 205 mg/dL (60-115)
[2024-12-02] MEDS: Insulin Lispro 100 UNIT/ML 3 ML VIAL SUBCUT ×4 (00:18→18:05)
[2024-12-02] MEDS: Acetaminophen 1,000 MG/100 ML PIGGYBACK 400 MG IV ×3 (04:44→20:56)
[2024-12-02 05:27] LABS: VBG Base Excess 21.6 mmol/L; VBG HCO3 45 mmol/L (22-26); VBG pCO2 45 mmHg; VBG pO2 46 mmHg
[2024-12-02 05:32] LABS: Venous Blood Gas Refer to POC result
[2024-12-02 05:41] LABS: MANUAL DIFF FLAG NO
[2024-12-02 05:42] LABS: Basophils Absolute Auto 0.1 X10*3/uL (0.0-0.2); Basophils Percent Auto 0.5 % (0-2); Eosinophils Absolute Auto 0.5 X10*3/uL (0.0-0.4); Eosinophils Percent Auto 4.1 % (0-4); Hemoglobin 8.4 g/dl (14.0-18.0); Imm Gran Abs Auto 0.06 X10*3/uL (0.00-0.03); Imm Gran Pct Auto 0.5 % (0.0-0.4); Lymphocytes Absolute Auto 4.5 X10*3/uL (1.2-4.9); Lymphocytes Percent Auto 39.5 % (20-40); Mean Corpuscular HGB Conc 31.1 g/dl (31.0-36.0); Mean Corpuscular Hemoglobin 28.3 pg (27.0-33.0); Mean Corpuscular Volume 90.9 fL (80.0-98.0); Mean Platelet Volume 11.3 fL (9.4-12.4); Monocytes Absolute Auto 1.3 X10*3/uL (0.1-1.2); Monocytes Percent Auto 11.1 % (2-11); Neutrophils Percent Auto 44.3 % (45-73); Platelet Count 167 X10*3/uL (160-400); Red Blood Count 2.97 X10*6/uL (4.60-5.80); Red Cell Distribution Width 17.2 % (11.0-16.0); White Blood Count 11.3 X10*3/uL (4.8-10.8)
[2024-12-02 05:59] LABS: Vancomycin Random 21.4 mcg/mL (15-20)
[2024-12-02 06:03] LABS: Albumin Level 2.8 g/dL (3.5-5.0); Anion Gap 13 (12-20); Blood Urea Nitrogen 31 mg/dL (9-16); Calcium 8.6 mg/dL (8.4-10.2); Carbon Dioxide 34 mmol/L (22-29); Chloride 94 mmol/L (96-108); Creatinine Clr Calc Pharmacy 135.2; Estimated Glomerular Filt Rate > 60; Glucose Random 188 mg/dL (60-115); Magnesium 2.2 mg/dL (1.6-2.6); Phosphorus 3.5 mg/dL (2.7-4.5); Potassium 3.9 mmol/L (3.3-5.1); Sodium 137 mmol/L (135-145)
--- NOTE | 2024-12-02 06:27 | PC.NURSE ---
Assumed?care 1900, pt trach/vent, sedated on precedex, RASS -2. On ACVC settings - see vent assessment. Levophed titrated per NOV. Tmax 101.3, prn Tylenol?administered, effectiveness pending- see NOV.?? [facility] notified of potential [employer]ACH[employer]PER[employer] status - reference #[id number]. Per [facility] decision not to follow at this time.?
[2024-12-02] MEDS: Albumin Human 25 % 50 ML 100 ML IV ×2 (07:48→10:53)
[2024-12-02] MEDS: Chlorhexidine Gluc Oral Rinse 15 ML MOUTHWASH BUCCAL ×3 (07:48→19:23)
[2024-12-02] MEDS: Famotidine/PF 20 MG/2 ML VIAL IVPUSH (07:48)
[2024-12-02] MEDS: Furosemide 40 MG/4 ML VIAL 60 MG IVPUSH ×2 (07:49→17:37)
[2024-12-02] MEDS: Enoxaparin Sodium 40 MG/0.4 ML SYRINGE SUBCUT (07:49)
[2024-12-02] MEDS: Norepinephrine Bitartrate/D5W 8 MG/250 ML PLAST..BAG 19.86 MG IVCONT ×2 (07:52→19:22)
--- NOTE | 2024-12-02 09:02 | P.PNCC_ITS ---
Subjective Subjective Date of Service: 12/02/24 Interval History: no significant overnight events Critical Care Time (minutes): 60 Physical Exam 2 Vital Signs: Vital Signs: Last Vital Signs Temp 101.3 F H 12/02/24 08:56 Pulse 72 12/02/24 08:56 Resp 26 H 12/02/24 08:56 BP 104/59 L 12/02/24 08:56 Pulse Ox 94 12/02/24 08:56 O2 Del Method Mechanical Ventil ation 12/02/24 08:56 O2 Flow Rate 35 11/19/24 16:00 FiO2 35 12/02/24 08:56 Oxygen Flow Rate 15 10/29/24 14:07 BMI result Body Mass Index 31.9 Const: Other: intubated, tracheostomy in place; opens eyes to verbal stimulus; no appreciable purposeful movements General: no acute distress, well developed, alert and awake HEENT: Head: Yes normal to inspection, Yes normocephalic and Yes atraumatic Eyes: General: appearance normal, both eyes and all related structures Neck: Other: tracheostomy clean, dry, intact Neck: Yes normal visual inspection, Yes full ROM, Yes no meningeal signs, Yes trachea midline and Yes supple Chest: Chest palpation & inspection: normal inspection of the chest Resp: Other: no appreciable overt rales, rhonchi, wheezing Effort & Inspection: normal respiratory effort Cardio: Rate: regular rate Rhythm: abnormal rhythm GI: Inspection: Yes normal to inspection, No Abdominal wall edema and No distended Palpation (GI): Soft to palpation, not firm, nontender, no guarding and not rigid Skin: General skin exam: no rashes or lesions noted Neuro: General: tone normal and no meningeal signs Extrem: Other: appreciable 2+ pitting edema to bilateral shins General: Yes normal to inspection, Yes full ROM and Yes capillary refill normal Psych: Other: appreciable intermittent agitation Objective Data Labs 12/02/24 05:10 12/02/24 05:10 Labs: Laboratory Results - last 24 hr 12/01/24 12/01/24 12/01/24 11:19 12:57 17:17 WBC RBC Hgb Hct MCV MCH MCHC RDW Plt Count MPV Immature Gran % (Auto) Neut % (Auto) Lymph % (Auto) [place] % (Auto) Eos % (Auto) Baso % (Auto) Lymph # (Auto) [place] # (Auto) Eos # (Auto) Baso # (Auto) Abs Immat Gran (auto) Absolute Neuts (auto) Absolute Nucleated RBC Nucleated RBC % (auto) VBG pH VBG pCO2 VBG pO2 VBG HCO3 VBG O2 Saturation VBG Base Excess Sodium Potassium Chloride Carbon Dioxide Anion Gap BUN Creatinine Estim Creat Clear Calc Estimated GFR POC Glucose 180 H 183 H Random Glucose Calcium Phosphorus Magnesium Albumin Random Vancomycin 24.7 H 12/02/24 12/02/24 12/02/24 00:00 05:10 05:22 WBC 11.3 H RBC 2.97 L Hgb 8.4 L Hct 27.0 L MCV 90.9 MCH 28.3 MCHC 31.1 RDW 17.2 H Plt Count 167 MPV 11.3 Immature Gran % (Auto) 0.5 H Neut % (Auto) 44.3 L Lymph % (Auto) 39.5 [place] % (Auto) 11.1 H Eos % (Auto) 4.1 H Baso % (Auto) 0.5 Lymph # (Auto) 4.5 [place] # (Auto) 1.3 H Eos # (Auto) 0.5 H Baso # (Auto) 0.1 Abs Immat Gran (auto) 0.06 H Absolute Neuts (auto) 5.0 Absolute Nucleated RBC 0.000 Nucleated RBC % (auto) 0.0 VBG pH 7.60 H* VBG pCO2 45 VBG pO2 46 VBG HCO3 45 H VBG O2 Saturation 79.0 VBG Base Excess 21.6 Sodium 137 Potassium 3.9 Chloride 94 L Carbon Dioxide 34 H Anion Gap 13 BUN 31 H Creatinine 0.52 Estim Creat Clear Calc 135.2 Estimated GFR > 60 POC Glucose 205 H Random Glucose 188 H Calcium 8.6 Phosphorus 3.5 Magnesium 2.2 Albumin 2.8 L Random Vancomycin 21.4 H Microbiology Microbiology Results: Microbiology 11/22/24 10:00 Groin, Left Gram Stain - Final 11/22/24 10:00 Groin, Left Routine Culture - Final No growth after 2 days 11/22/24 10:00 Groin, Left Anaerobic Culture - Final NO GROWTH AFTER 5 DAYS 11/21/24 16:36 Groin Gram Stain - Final 11/21/24 16:36 Groin Routine Culture - Final Proteus mirabilis Pseudomonas aeruginosa Pseudomonas aeruginosa#2 11/02/24 09:16 Groin, Right Gram Stain - Final 11/02/24 09:16 Groin, Right Routine Culture - Final Proteus mirabilis So albicans 10/29/24 15:29 Blood - Venous Blood Culture - Final No growth after 5 days. 10/29/24 14:42 Blood - Venous Blood Culture - Final No growth after 5 days. 10/29/24 Unknown Urine Catheterized - Kelly Catheter Urine Culture - Final Escherichia coli Progress Note: A&P Assessment and plan (1) Ventilator dependent: Status: Acute (2) Failure to wean from mechanical ventilation: Status: Acute (3) Hypotension: Status: Acute Plan Patient is a 79 Y M w/ diabetes mellitus, CHF c/b paroxysmal atrial fibrillation, idiopathic pulmonary fibrosis, prostate cancer c/b recurrent ESBL UTI, and recent pneumonia necessitating admission, presenting to emergency department on 10/29 w/ encephalopathy and purulent urine, c/f UTI c/b septic shock; ICU course c/b shock c/b multi-system organ failure including respiratory failure, intubated on 11/01, w/ persistent respiratory failure, s/p tracheostomy, gastrostomy 11/15, persistent encephalopathy, and L groin hematoma c/b hemorrhagic shock necessitating vascular surgery 11/11 N: persistent encephalopathy, likely toxic-metabolic despite off sedating gtts CV: persistent hypotension, unclear etiology, norepinephrine gtt, wean as tolerated R: persistent respiratory failure, likely multi-factorial including encephalopathy, myopathy, s/p tracheostomy 11/15, wean as tolerated, though failing to SBT > 1 hour for days GI: s/p gastrostomy 11/15, tube feeds : prostate cancer c/b recurrent ESBL UTIs; to closely monitor renal indices, electrolytes H: L groin hematoma c/b hemorrhagic shock, resolved; DVT prophylaxis w/ enoxaparin SQ ID: prostate cancer c/b recurrent ESBL UTIs, on prolonged course meropenem; L groin surgical site w/ purulence, vancomycin E: to monitor hypo-/hyper-glycemia S: daily updates regarding guarded clinical status given to patient's son; son stated will likely transition to comfort-focused care in upcoming day Quality Stroke Does the patient have a stroke diagnosis?: No VTE Prior VTE?: No VTE Risk Level:: Medical - moderate - high VTE Device Contraindication: N/A - Device Ordered VTE Drug Contraindication: N/A - Med Ordered
[2024-12-02 11:54] LABS: Glucose, Whole Blood 185 mg/dL (60-115)
[2024-12-02] MEDS: dexmedeTOMIDidine HCL/NS 400 MCG/100 ML INFUS..BTL IVCONT (16:02)
--- NOTE | 2024-12-02 16:56 | PC.NURSE ---
ICU Critical Care Nursing Note Pt provided a cool bed bath 10:00AM? for fever 101.3 unresponsive to tylenol administration at the end of previous shift. Temperature decreased with bath to 100.4F. Neuro: eyes open to name, drowsy, follows commands to squeeze hands , PERRLA. Precedex gtt off for sedation vacation.? Cardiac:sinus arrhythmia on tele HR 70s-80s, occasional PVCs. Resp: PSV spontaneous breathing trial attempted. Patient respiratory rate increased to 40s. Unable to tolerate SBT.? GI/: chronic pickering draining pale yellow urine. 60 mg lasix IVP given per NOV with good effect.? Endocrine: POC glucose check required 2 unit SSI coverage.? Integumentary/Musculoskeletal: Dressings changed to left groin and abdominal folds. Left groin site wound bed yellow, wound edges along staple line moist and not well approximated. MD notified. Acute skin failure to sacrum and right buttock unchanged. Triad applied. Pt turned and repositioned Q2HR with wedges and is on isotour bed.? Psychosocial (family etc.): Son contacted this morning and states no change in code status today. Plans to visit bedside tomorrow.? Infectious Disease: Vancomycin IV ordered Q24HR? Central Lines: PICC line to Left upper arm. Site CDI, biopatch and green caps present. Positive blood return on all lumens. Dressing clean and intact from 11/26/24.
[2024-12-02 17:47] LABS: Glucose, Whole Blood 190 mg/dL (60-115)
[2024-12-03] VITALS (38 sets, daily range): BP systolic 91–128; BP diastolic 49–74; PULSE 65–99; RESP 14–30; TEMP 35–38.7; O2SAT 90–99; BMI 31.8
[2024-12-03] MEDS: dexmedeTOMIDidine HCL/NS 400 MCG/100 ML INFUS..BTL 14.19 MCG IVCONT (00:03)
[2024-12-03 00:29] LABS: Glucose, Whole Blood 206 mg/dL (60-115)
[2024-12-03] MEDS: Insulin Lispro 100 UNIT/ML 3 ML VIAL SUBCUT ×4 (00:30→18:37)
[2024-12-03] MEDS: Acetaminophen 1,000 MG/100 ML PIGGYBACK 400 MG IV ×2 (04:14→16:31)
[2024-12-03 05:28] LABS: VBG Base Excess 21.3 mmol/L; VBG HCO3 45 mmol/L (22-26); VBG pCO2 47 mmHg; VBG pH 7.59 (7.32-7.43); VBG pO2 45 mmHg
[2024-12-03 05:41] LABS: Glucose, Whole Blood 181 mg/dL (60-115)
[2024-12-03 06:02] LABS: MANUAL DIFF FLAG NO
[2024-12-03 06:04] LABS: Basophils Absolute Auto 0.1 X10*3/uL (0.0-0.2); Basophils Percent Auto 0.5 % (0-2); Eosinophils Absolute Auto 0.6 X10*3/uL (0.0-0.4); Eosinophils Percent Auto 4.7 % (0-4); Hematocrit 28.1 % (42.0-52.0); Hemoglobin 8.5 g/dl (14.0-18.0); Imm Gran Abs Auto 0.06 X10*3/uL (0.00-0.03); Imm Gran Pct Auto 0.5 % (0.0-0.4); Lymphocytes Absolute Auto 4.8 X10*3/uL (1.2-4.9); Lymphocytes Percent Auto 38.7 % (20-40); Mean Corpuscular HGB Conc 30.2 g/dl (31.0-36.0); Mean Corpuscular Hemoglobin 28.1 pg (27.0-33.0); Mean Platelet Volume 11.7 fL (9.4-12.4); Monocytes Absolute Auto 1.2 X10*3/uL (0.1-1.2); Monocytes Percent Auto 9.4 % (2-11); Neutrophils Absolute Auto 5.7 x10*3/uL (2.0-8.3); Neutrophils Percent Auto 46.2 % (45-73); Platelet Count 171 X10*3/uL (160-400); Red Blood Count 3.02 X10*6/uL (4.60-5.80); White Blood Count 12.3 X10*3/uL (4.8-10.8)
[2024-12-03 06:21] LABS: Albumin Level 2.9 g/dL (3.5-5.0); Anion Gap 13 (12-20); Blood Urea Nitrogen 32 mg/dL (9-16); Calcium 8.7 mg/dL (8.4-10.2); Carbon Dioxide 35 mmol/L (22-29); Chloride 92 mmol/L (96-108); Creatinine Clr Calc Pharmacy 118.8; Estimated Glomerular Filt Rate > 60; Glucose Random 190 mg/dL (60-115); Magnesium 2.2 mg/dL (1.6-2.6); Phosphorus 3.8 mg/dL (2.7-4.5); Potassium 4.1 mmol/L (3.3-5.1); Sodium 136 mmol/L (135-145)
--- NOTE | 2024-12-03 06:38 | PC.NURSE ---
Assumed care at 1900 - pt trach/vent, sedated on precedex.?Precedex increased d/t restlessness?- see MAR. Levophed titrated per MAR. Pt had a brief period of aflutter on tele HR 80-90s, converted?back to SA. [employer] Eliseo aware. Tmax 101.7, prn Tylenol administered x2 with little effect?- see MAR.?
[2024-12-03] MEDS: dexmedeTOMIDidine HCL/NS 400 MCG/100 ML INFUS..BTL IVCONT (07:52)
[2024-12-03] MEDS: 0.9 % Sodium Chloride Flush 3 ML SYRINGE IVFLUSH ×2 (07:54→16:39)
[2024-12-03] MEDS: Chlorhexidine Gluc Oral Rinse 15 ML MOUTHWASH BUCCAL ×3 (07:55→20:45)
[2024-12-03] MEDS: Famotidine/PF 20 MG/2 ML VIAL IVPUSH (07:55)
[2024-12-03] MEDS: Albumin Human 25 % 50 ML 100 ML IV ×2 (07:55→08:45)
[2024-12-03] MEDS: Enoxaparin Sodium 40 MG/0.4 ML SYRINGE SUBCUT (07:55)
[2024-12-03] MEDS: Furosemide 40 MG/4 ML VIAL 60 MG IVPUSH ×2 (07:55→18:37)
[2024-12-03 08:28] LABS: Venous Blood Gas Refer to POC result
--- NOTE | 2024-12-03 08:54 | PM.CCPN ---
Subjective Subjective Date of Service: 12/03/24 Interval History: no significant overnight events Critical Care Time (minutes): 60 Physical Exam Vital Signs: Vital Signs: Last Vital Signs Temp 101.3 F H 12/03/24 08:00 Pulse 85 12/03/24 08:00 Resp 27 H 12/03/24 08:00 BP 105/52 L 12/03/24 08:00 Pulse Ox 96 12/03/24 08:00 O2 Del Method Mechanical Ventil ation 12/03/24 08:00 O2 Flow Rate 35 11/19/24 16:00 FiO2 35 12/03/24 08:12 Oxygen Flow Rate 15 10/29/24 14:07 BMI result Body Mass Index 31.8 Const: Other: intubated, minimally sedated; responds to verbal stimulus; no appreciable purposeful movements General: well developed HEENT: Head: Yes normal to inspection, Yes normocephalic and Yes atraumatic Eyes: General: appearance normal, both eyes and all related structures Neck: Neck: Yes normal visual inspection, Yes full ROM, Yes no meningeal signs, Yes trachea midline and Yes supple Chest: Chest palpation & inspection: normal inspection of the chest Resp: Other: appreciable rhonchi throughout; no appreciable rales, wheezing Effort & Inspection: normal respiratory effort Cardio: Rate: regular rate Rhythm: abnormal rhythm GI: Inspection: Yes normal to inspection, No Abdominal wall edema and No distended Palpation (GI): Soft to palpation, not firm, nontender, no guarding and not rigid Skin: General skin exam: no rashes or lesions noted Neuro: Other: no appreciable spontaneous movements General: tone normal and no meningeal signs Extrem: Other: appreciable 2+ pitting edema to bilateral shins General: Yes normal to inspection, Yes full ROM and Yes capillary refill normal Psych: Other: appreciable intermittent agitation Objective Data Labs 12/03/24 05:15 12/03/24 05:15 Labs: Laboratory Results - last 24 hr 12/02/24 12/02/24 12/03/24 11:43 17:37 00:15 WBC RBC Hgb Hct MCV MCH MCHC RDW Plt Count MPV Immature Gran % (Auto) Neut % (Auto) Lymph % (Auto) [place] % (Auto) Eos % (Auto) Baso % (Auto) Lymph # (Auto) [place] # (Auto) Eos # (Auto) Baso # (Auto) Abs Immat Gran (auto) Absolute Neuts (auto) Absolute Nucleated RBC Nucleated RBC % (auto) VBG pH VBG pCO2 VBG pO2 VBG HCO3 VBG O2 Saturation VBG Base Excess Sodium Potassium Chloride Carbon Dioxide Anion Gap BUN Creatinine Estim Creat Clear Calc Estimated GFR POC Glucose 185 H 190 H 206 H Random Glucose Calcium Phosphorus Magnesium Albumin Random Vancomycin 12/03/24 12/03/24 12/03/24 05:15 05:25 05:38 WBC 12.3 H RBC 3.02 L Hgb 8.5 L Hct 28.1 L MCV 93.0 MCH 28.1 MCHC 30.2 L RDW 17.0 H Plt Count 171 MPV 11.7 Immature Gran % (Auto) 0.5 H Neut % (Auto) 46.2 Lymph % (Auto) 38.7 [place] % (Auto) 9.4 Eos % (Auto) 4.7 H Baso % (Auto) 0.5 Lymph # (Auto) 4.8 [place] # (Auto) 1.2 Eos # (Auto) 0.6 H Baso # (Auto) 0.1 Abs Immat Gran (auto) 0.06 H Absolute Neuts (auto) 5.7 Absolute Nucleated RBC 0.000 Nucleated RBC % (auto) 0.0 VBG pH 7.59 H VBG pCO2 47 VBG pO2 45 VBG HCO3 45 H VBG O2 Saturation 77.0 VBG Base Excess 21.3 Sodium 136 Potassium 4.1 Chloride 92 L Carbon Dioxide 35 H Anion Gap 13 BUN 32 H Creatinine 0.59 Estim Creat Clear Calc 118.8 Estimated GFR > 60 POC Glucose 181 H Random Glucose 190 H Calcium 8.7 Phosphorus 3.8 Magnesium 2.2 Albumin 2.9 L Random Vancomycin 19.0 Microbiology Microbiology Results: Microbiology 11/22/24 10:00 Groin, Left Gram Stain - Final 11/22/24 10:00 Groin, Left Routine Culture - Final No growth after 2 days 11/22/24 10:00 Groin, Left Anaerobic Culture - Final NO GROWTH AFTER 5 DAYS 11/21/24 16:36 Groin Gram Stain - Final 11/21/24 16:36 Groin Routine Culture - Final Proteus mirabilis Pseudomonas aeruginosa Pseudomonas aeruginosa#2 11/02/24 09:16 Groin, Right Gram Stain - Final 11/02/24 09:16 Groin, Right Routine Culture - Final Proteus mirabilis So albicans 10/29/24 15:29 Blood - Venous Blood Culture - Final No growth after 5 days. 10/29/24 14:42 Blood - Venous Blood Culture - Final No growth after 5 days. 10/29/24 Unknown Urine Catheterized - Kelly Catheter Urine Culture - Final Escherichia coli Progress Note: A&P Assessment and plan (1) Failure to wean from mechanical ventilation: Status: Acute (2) Ventilator dependent: Status: Acute (3) Myopathy: Status: Acute Plan Patient is a 79 Y M w/ diabetes mellitus, CHF c/b paroxysmal atrial fibrillation, idiopathic pulmonary fibrosis, prostate cancer c/b recurrent ESBL UTI, and recent pneumonia necessitating admission, presenting to emergency department on 10/29 w/ encephalopathy and purulent urine, c/f UTI c/b septic shock; ICU course c/b shock c/b multi-system organ failure including respiratory failure, intubated on 11/01, w/ persistent respiratory failure, s/p tracheostomy, gastrostomy 11/15, persistent encephalopathy, and L groin hematoma c/b hemorrhagic shock necessitating vascular surgery 11/11 N: persistent encephalopathy, likely toxic-metabolic despite off sedating gtts CV: persistent hypotension, unclear etiology, norepinephrine gtt, wean as tolerated R: persistent respiratory failure, likely multi-factorial including encephalopathy, myopathy, s/p tracheostomy 11/15, wean as tolerated, though failing to SBT > 1 hour for days GI: s/p gastrostomy 11/15, tube feeds : prostate cancer c/b recurrent ESBL UTIs; to closely monitor renal indices, electrolytes H: L groin hematoma c/b hemorrhagic shock, resolved; DVT prophylaxis w/ enoxaparin SQ ID: prostate cancer c/b recurrent ESBL UTIs, on prolonged course meropenem; L groin surgical site w/ purulence, vancomycin E: to monitor hypo-/hyper-glycemia S: likely transition to comfort-focused care today Quality Stroke Does the patient have a stroke diagnosis?: No VTE Prior VTE?: No VTE Risk Level:: Medical - moderate - high VTE Device Contraindication: N/A - Device Ordered VTE Drug Contraindication: N/A - Med Ordered
[2024-12-03] MEDS: Norepinephrine Bitartrate/D5W 8 MG/250 ML PLAST..BAG 16.25 MG IVCONT (09:04)
[2024-12-03] MEDS: HYDROmorphone HCl 0.5 MG/0.5 ML SYRINGE IVPUSH ×2 (11:44→15:16)
[2024-12-03 12:06] LABS: Glucose, Whole Blood 171 mg/dL (60-115)
[2024-12-03 18:32] LABS: Glucose, Whole Blood 184 mg/dL (60-115)
--- NOTE | 2024-12-03 19:18 | PC.NURSE ---
Assumed care of patient 0700. Precedex gtt decreased to 0.2 mcg/kg/hr. Pt opens eyes to name, moves bilateral arms spontaneously, tracks voices briefly, does not follow commands. Temperature elevated 101.3F. Improved to 99.5 with cool bath wipes to skin and administration of cool water via OG tube. No changes to care plan.
[2024-12-03] MEDS: Norepinephrine Bitartrate/D5W 8 MG/250 ML PLAST..BAG 19.86 MG IVCONT (22:10)
[2024-12-03 23:46] LABS: Glucose, Whole Blood 236 mg/dL (60-115)
[2024-12-04] VITALS (38 sets, daily range): BP systolic 83–133; BP diastolic 44–73; PULSE 75–104; RESP 13–30; TEMP 34.9–39; O2SAT 91–98; BMI 30.9
[2024-12-04] MEDS: 0.9 % Sodium Chloride Flush 3 ML SYRINGE IVFLUSH ×4 (00:04→23:27)
[2024-12-04] MEDS: Insulin Lispro 100 UNIT/ML 3 ML VIAL SUBCUT ×4 (00:05→17:26)
[2024-12-04] MEDS: HYDROmorphone HCl 0.5 MG/0.5 ML SYRINGE IVPUSH (02:49)
[2024-12-04] MEDS: dexmedeTOMIDidine HCL/NS 400 MCG/100 ML INFUS..BTL IVCONT (04:06)
[2024-12-04 05:03] LABS: VBG HCO3 46 mmol/L (22-26); VBG pCO2 44 mmHg; VBG pH 7.62 (7.32-7.43); VBG pO2 39 mmHg
[2024-12-04 05:12] LABS: Venous Blood Gas Refer to POC result
[2024-12-04 05:30] LABS: MANUAL DIFF FLAG NO
[2024-12-04 05:32] LABS: Basophils Absolute Auto 0.1 X10*3/uL (0.0-0.2); Basophils Percent Auto 0.5 % (0-2); Eosinophils Absolute Auto 0.6 X10*3/uL (0.0-0.4); Eosinophils Percent Auto 4.4 % (0-4); Hematocrit 26.9 % (42.0-52.0); Hemoglobin 8.5 g/dl (14.0-18.0); Imm Gran Pct Auto 0.8 % (0.0-0.4); Lymphocytes Absolute Auto 4.6 X10*3/uL (1.2-4.9); Lymphocytes Percent Auto 34.6 % (20-40); Mean Corpuscular HGB Conc 31.6 g/dl (31.0-36.0); Mean Corpuscular Hemoglobin 29.6 pg (27.0-33.0); Mean Corpuscular Volume 93.7 fL (80.0-98.0); Monocytes Absolute Auto 1.2 X10*3/uL (0.1-1.2); Monocytes Percent Auto 9.1 % (2-11); Neutrophils Absolute Auto 6.7 x10*3/uL (2.0-8.3); Neutrophils Percent Auto 50.6 % (45-73); Platelet Count 151 X10*3/uL (160-400); Red Blood Count 2.87 X10*6/uL (4.60-5.80); Red Cell Distribution Width 17.2 % (11.0-16.0); White Blood Count 13.2 X10*3/uL (4.8-10.8)
[2024-12-04 05:50] LABS: Anion Gap 14 (12-20); Blood Urea Nitrogen 35 mg/dL (9-16); Calcium 8.8 mg/dL (8.4-10.2); Carbon Dioxide 35 mmol/L (22-29); Chloride 92 mmol/L (96-108); Creatinine Clr Calc Pharmacy 109.9; Estimated Glomerular Filt Rate > 60; Glucose Random 216 mg/dL (60-115); Magnesium 2.2 mg/dL (1.6-2.6); Phosphorus 3.6 mg/dL (2.7-4.5); Potassium 3.7 mmol/L (3.3-5.1); Sodium 137 mmol/L (135-145)
--- NOTE | 2024-12-04 07:19 | PC.NURSE ---
Critical Care Nursing Note? Neuro:? opens eyes spontaneously, intermittently tracks movement/voice, +cough, gag, precedex gtt infusing Rass -1 Cardiac: sinus arrhythmia, levophed gtt infusing Resp: trach, patient on ACVC settings overnight GI/:? pickering; tube feedings Endocrine: sliding scale? Integumentary/Musculoskeletal: trach site, L groin surgical site and TJ drain, groin folds, drain,? ID:? Vancomycin? Central Lines:ÁNGEL Picc line Events: n/a Plan moving forward:Wean pressors, PSV trials
[2024-12-04] MEDS: Acetaminophen 1,000 MG/100 ML PIGGYBACK 400 MG IV ×2 (07:30→17:27)
[2024-12-04] MEDS: Famotidine/PF 20 MG/2 ML VIAL IVPUSH (08:57)
[2024-12-04] MEDS: Norepinephrine Bitartrate/D5W 8 MG/250 ML PLAST..BAG 19.86 MG IVCONT (08:57)
[2024-12-04] MEDS: Enoxaparin Sodium 40 MG/0.4 ML SYRINGE SUBCUT (08:57)
[2024-12-04] MEDS: Chlorhexidine Gluc Oral Rinse 15 ML MOUTHWASH BUCCAL ×3 (08:57→20:19)
[2024-12-04] MEDS: Furosemide 40 MG/4 ML VIAL 60 MG IVPUSH ×2 (08:57→17:26)
--- NOTE | 2024-12-04 09:54 | MHC.CLN ---
F/U DISCUSSED AT ROUNDS WITH GLUCERNA TUBE FEEDING ON BACKORDER PT PREVIOUSLY RECEIVING GLUCERNA 1.0 AT MAX GOAL RATE 90ML/HR WITH 30ML PROSOURCE BID AND 120ML FREE WATER FLUSHES Q 6 HRS PROVIDES 2280KCALS (31KCALS/KG IBW), 120G TOTAL PROTEIN (1.6G/KG IBW), 2322ML TOTAL FREE WATER FROM FORMULA AND FLUSHES (32ML/KG IBW) PT CURRENTLY RECEIVING NEPRO AT 90ML/HR AND OVER EXCEEDING KCAL AND PROTEIN NEEDS RECOMMEND SWITCHING TO JEVITY 1.0 AT MAX GOAL RATE 85ML/HR WITH 120ML FREE WATER FLUSHES Q 6 HRS TO PROVIDE 2162KCALS (30KCALS/KG), 90G PROTEIN (1.2G/KG), 2183ML TOTAL WATER FROM FORMULA AND FLUSHES (30ML/KG) CONTINUE TO MONITOR TOLERANCE, BS AND LYTES
--- NOTE | 2024-12-04 10:13 | P.PNCC_ITS ---
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, chronic systolic congestive heart failure, prostate cancer, chronic UTIs, diabetes mellitus type 2, dysphagia admitted with septic shock secondary to ESBL UTI with hospital course further complicated by multiorgan failure including acute hypoxic respiratory failure requiring intubation and ventilatory support on 11/01/2024, and hemorrhagic shock secondary to femoral hematoma requiring evacuation in OR on 11/11/2024, and placement of TJ drain to drain residual abscess on 11/21/2024, also with failure to wean from ventilatory support, status post tracheostomy and parenteral gastrostomy on 11/15/2024, now with recurrent pulmonary aspiration past tracheostomy cuff and progressive critical illness myopathy resulting in poor tolerance of pressure support trials. No events overnight. Critical Care Time (minutes): 60 Physical Exam 2 Vital Signs: Vital Signs: Last Vital Signs Temp 101.5 F H 12/04/24 08:59 Pulse 92 12/04/24 08:59 Resp 13 12/04/24 08:59 BP 110/59 L 12/04/24 08:59 Pulse Ox 91 L 12/04/24 08:59 O2 Del Method Mechanical Ventil ation 12/04/24 08:59 O2 Flow Rate 35 11/19/24 16:00 FiO2 35 12/04/24 08:59 Oxygen Flow Rate 15 10/29/24 14:07 BMI result Body Mass Index 30.9 Const: General: no acute distress, awake, ill appearing and other ( encephalopathic) Eyes: Sclerae: sclerae normal EOM: EOMs intact bilaterally Neck: Neck: Yes no lymphadenopathy, Yes trachea midline, Yes supple and Yes tracheostomy present ( on ventilatory support) Resp: Effort & Inspection: normal respiratory effort and no respiratory distress Auscultation: crackles ( mild bilateral) Cardio: Rate: regular rate Rhythm: abnormal rhythm irregularly irregular Heart sounds: no gallops, no murmurs and no rubs GI: Inspection: Yes G-tube present Palpation (GI): Soft to palpation and Other GI palpation findings present ( Nontender) Auscultation: normal bowel sounds Extrem: General: No clubbing, No cyanosis and Yes edema ( trace bilateral) Objective Data Labs 12/04/24 04:54 12/04/24 04:54 Labs: Laboratory Results - last 24 hr 12/03/24 12/03/24 12/03/24 11:50 18:24 23:34 WBC RBC Hgb Hct MCV MCH MCHC RDW Plt Count MPV Immature Gran % (Auto) Neut % (Auto) Lymph % (Auto) [place] % (Auto) Eos % (Auto) Baso % (Auto) Lymph # (Auto) [place] # (Auto) Eos # (Auto) Baso # (Auto) Abs Immat Gran (auto) Absolute Neuts (auto) Absolute Nucleated RBC Nucleated RBC % (auto) VBG pH VBG pCO2 VBG pO2 VBG HCO3 VBG O2 Saturation VBG Base Excess Sodium Potassium Chloride Carbon Dioxide Anion Gap BUN Creatinine Estim Creat Clear Calc Estimated GFR POC Glucose 171 H 184 H 236 H Random Glucose Calcium Phosphorus Magnesium Albumin Random Vancomycin 12/04/24 12/04/24 04:54 04:59 WBC 13.2 H RBC 2.87 L Hgb 8.5 L Hct 26.9 L MCV 93.7 MCH 29.6 MCHC 31.6 RDW 17.2 H Plt Count 151 L MPV 12.0 Immature Gran % (Auto) 0.8 H Neut % (Auto) 50.6 Lymph % (Auto) 34.6 [place] % (Auto) 9.1 Eos % (Auto) 4.4 H Baso % (Auto) 0.5 Lymph # (Auto) 4.6 [place] # (Auto) 1.2 Eos # (Auto) 0.6 H Baso # (Auto) 0.1 Abs Immat Gran (auto) 0.10 H Absolute Neuts (auto) 6.7 Absolute Nucleated RBC 0.000 Nucleated RBC % (auto) 0.0 VBG pH 7.62 H* VBG pCO2 44 VBG pO2 39 VBG HCO3 46 H VBG O2 Saturation 68.0 VBG Base Excess 23.0 Sodium 137 Potassium 3.7 Chloride 92 L Carbon Dioxide 35 H Anion Gap 14 BUN 35 H Creatinine 0.63 Estim Creat Clear Calc 109.9 Estimated GFR > 60 POC Glucose Random Glucose 216 H Calcium 8.8 Phosphorus 3.6 Magnesium 2.2 Albumin 3.0 L Random Vancomycin 17.0 Microbiology Microbiology Results: Microbiology 11/22/24 10:00 Groin, Left Gram Stain - Final 11/22/24 10:00 Groin, Left Routine Culture - Final No growth after 2 days 11/22/24 10:00 Groin, Left Anaerobic Culture - Final NO GROWTH AFTER 5 DAYS 11/21/24 16:36 Groin Gram Stain - Final 11/21/24 16:36 Groin Routine Culture - Final Proteus mirabilis Pseudomonas aeruginosa Pseudomonas aeruginosa#2 11/02/24 09:16 Groin, Right Gram Stain - Final 11/02/24 09:16 Groin, Right Routine Culture - Final Proteus mirabilis So albicans 10/29/24 15:29 Blood - Venous Blood Culture - Final No growth after 5 days. 10/29/24 14:42 Blood - Venous Blood Culture - Final No growth after 5 days. 10/29/24 Unknown Urine Catheterized - Kelly Catheter Urine Culture - Final Escherichia coli Progress Note: A&P Assessment and plan (1) Heart failure with reduced ejection fraction: Status: Acute (2) Persistent atrial fibrillation: Status: Acute (3) Non-insulin dependent type 2 diabetes mellitus: Status: Acute (4) Tracheostomy in place: Status: Acute (5) Gastrostomy in place: Status: Acute (6) Myopathy: Status: Acute (7) Encephalopathy: Status: Acute (8) Idiopathic pulmonary fibrosis: Status: Acute (9) Failure to wean from mechanical ventilation: Status: Acute Plan Assessment: 79-year-old gentleman with underlying multiple medical issues admitted with ESBL UTI further complicated by septic shock, acute respiratory failure requiring ventilatory support, multiorgan failure, and hemorrhagic shock as a complication of femoral hematoma with residual abscess percutaneous drain, also with recurrent pulmonary aspiration past tracheostomy cuff and critical illness myopathy poor tolerance of pressure support trials Plan: Neuro: Acute encephalopathy, very slowly improving. Underlying chronic dysphagia. Critical illness myopathy. Cardiac: Underlying paroxysmal AFib and chronic systolic congestive heart failure. Pulmonary: Acute hypoxic respiratory failure with inability to wean from ventilatory support. Status post tracheostomy/gastrostomy on 11/15/2024. Continue to titrate off ventilatory support as tolerated. Underlying pulmonary fibrosis. Aspirating past tracheostomy cuff with resultant poor tolerance of pressor support trials. Renal: No acute issues. Endo: No acute issues. Underlying diabetes mellitus, continue subcutaneous insulin. GI: No acute issues. Status post PEG. ID: ESBL UTI, s/p meropnem course. Femoral abscess, antibiotics switched to cefepime. Heme/Onc: No acute issues. Psych: No acute issues. Miscellaneous: Overall very poor prognosis for meaningful recovery. Discussions of goals of care are ongoing with the family. Prophylaxis: Lovenox, ppi Diet: Tube feeds Critical care time spent: 60 minutes Quality Stroke Does the patient have a stroke diagnosis?: No VTE Prior VTE?: No VTE Risk Level:: Medical - moderate - high VTE Device Contraindication: N/A - Device Ordered VTE Drug Contraindication: N/A - Med Ordered
[2024-12-04] MEDS: cefEPime HCl 1 GM in 0.9 % Sodium Chloride 50 ML IV ×2 (11:34→22:56)
[2024-12-04 11:41] LABS: Glucose, Whole Blood 213 mg/dL (60-115)
--- NOTE | 2024-12-04 13:03 | MHC.CM.PN ---
Pt continues care in ICU: not able to tolerate PSV trials: on levophed infusion for pressure support: Telephone clinical update w/Estela from [facility] [address] states pt must be off of Levo and tolerating some form of vent need reduction to be considered for placement. MD to attempt goals of care w/pt's son/HCP. CM to follow
[2024-12-04] MEDS: dexmedeTOMIDidine HCL/NS 400 MCG/100 ML INFUS..BTL 9.46 MCG IVCONT (16:17)
--- NOTE | 2024-12-04 16:50 | HO.SKINPHOTO ---
Location: Left Groin Category: Surgical Site Location: Left Abdominal Fold
--- NOTE | 2024-12-04 17:05 | PC.NURSE ---
Assumed care at 0700- Pt. remains mechanically vented via trach. Precedex gtt titrated per NOV. TF product changed per order- see TF assessment. Continued fever, Tmax 102.2- MD aware. PRN tylenol per NOV, ICE applied intermittently. L groin surgical site dsg changed- see wound note for photo. MD at bedside to assess site. Q2 oral care and repositioning performed, hovermat system in place. Plan of care ongoing.
[2024-12-04 17:32] LABS: Glucose, Whole Blood 217 mg/dL (60-115)
[2024-12-04] MEDS: Norepinephrine Bitartrate/D5W 8 MG/250 ML PLAST..BAG 16.25 MG IVCONT (20:20)
[2024-12-05] VITALS (40 sets, daily range): BP systolic 77–143; BP diastolic 47–83; PULSE 65–98; RESP 10–32; TEMP 34.6–39.2; O2SAT 89–99; BMI 30.8
[2024-12-05 00:08] LABS: Glucose, Whole Blood 249 mg/dL (60-115)
[2024-12-05] MEDS: Insulin Lispro 100 UNIT/ML 3 ML VIAL SUBCUT ×5 (00:12→23:49)
[2024-12-05] MEDS: dexmedeTOMIDidine HCL/NS 400 MCG/100 ML INFUS..BTL 9.46 MCG IVCONT ×3 (02:25→22:35)
[2024-12-05 05:37] LABS: VBG Base Excess 24.1 mmol/L; VBG HCO3 48 mmol/L (22-26); VBG pCO2 48 mmHg; VBG pO2 44 mmHg
[2024-12-05 05:50] LABS: MANUAL DIFF FLAG NO
[2024-12-05 05:54] LABS: Basophils Absolute Auto 0.1 X10*3/uL (0.0-0.2); Basophils Percent Auto 0.6 % (0-2); Eosinophils Absolute Auto 0.7 X10*3/uL (0.0-0.4); Eosinophils Percent Auto 5.2 % (0-4); Hematocrit 27.5 % (42.0-52.0); Hemoglobin 8.5 g/dl (14.0-18.0); Imm Gran Abs Auto 0.08 X10*3/uL (0.00-0.03); Imm Gran Pct Auto 0.6 % (0.0-0.4); Lymphocytes Absolute Auto 4.6 X10*3/uL (1.2-4.9); Mean Corpuscular HGB Conc 30.9 g/dl (31.0-36.0); Mean Corpuscular Hemoglobin 28.2 pg (27.0-33.0); Mean Corpuscular Volume 91.4 fL (80.0-98.0); Mean Platelet Volume 11.6 fL (9.4-12.4); Monocytes Absolute Auto 1.3 X10*3/uL (0.1-1.2); Monocytes Percent Auto 9.9 % (2-11); Neutrophils Percent Auto 47.7 % (45-73); Platelet Count 158 X10*3/uL (160-400); Red Blood Count 3.01 X10*6/uL (4.60-5.80); White Blood Count 12.7 X10*3/uL (4.8-10.8)
[2024-12-05 06:05] LABS: Venous Blood Gas Refer to POC result
[2024-12-05 06:18] LABS: Alanine Aminotransferase < 6 U/L (0-40); Albumin Level 2.8 g/dL (3.5-5.0); Anion Gap 13 (12-20); Aspartate Amino Transferase 27 U/L (5-37); Bilirubin Total 0.5 mg/dL (0.0-1.0); Blood Urea Nitrogen 30 mg/dL (9-16); Calcium 8.9 mg/dL (8.4-10.2); Carbon Dioxide 36 mmol/L (22-29); Chloride 93 mmol/L (96-108); Creatinine Clr Calc Pharmacy 117.1; Estimated Glomerular Filt Rate > 60; Glucose Random 243 mg/dL (60-115); Magnesium 2.2 mg/dL (1.6-2.6); Phosphorus 3.2 mg/dL (2.7-4.5); Potassium 3.6 mmol/L (3.3-5.1); Sodium 138 mmol/L (135-145); Total Protein 8.3 g/dL (6.5-8.0)
[2024-12-05 06:22] LABS: Alkaline Phosphatase 214 U/L (39-117)
[2024-12-05] MEDS: Albumin Human 25 % 100 ML IV ×3 (07:45→19:25)
[2024-12-05] MEDS: 0.9 % Sodium Chloride Flush 3 ML SYRINGE IVFLUSH ×3 (07:46→22:44)
[2024-12-05] MEDS: Chlorhexidine Gluc Oral Rinse 15 ML MOUTHWASH BUCCAL ×3 (08:00→19:25)
[2024-12-05] MEDS: Furosemide 40 MG/4 ML VIAL 60 MG IVPUSH ×2 (08:00→17:50)
[2024-12-05] MEDS: Famotidine/PF 20 MG/2 ML VIAL IVPUSH (08:00)
[2024-12-05] MEDS: Enoxaparin Sodium 40 MG/0.4 ML SYRINGE SUBCUT (08:29)
[2024-12-05] MEDS: Norepinephrine Bitartrate/D5W 8 MG/250 ML PLAST..BAG 19.86 MG IVCONT (09:31)
--- NOTE | 2024-12-05 09:33 | PM.CCPN ---
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, chronic systolic congestive heart failure, prostate cancer, chronic UTIs, diabetes mellitus type 2, dysphagia admitted with septic shock secondary to ESBL UTI with hospital course further complicated by multiorgan failure including acute hypoxic respiratory failure requiring intubation and ventilatory support on 11/01/2024, and hemorrhagic shock secondary to femoral hematoma requiring evacuation in OR on 11/11/2024, and placement of TJ drain to drain residual abscess on 11/21/2024, also with failure to wean from ventilatory support, status post tracheostomy and parenteral gastrostomy on 11/15/2024, now with recurrent pulmonary aspiration past tracheostomy cuff and progressive critical illness myopathy resulting in poor tolerance of pressure support trials. No events overnight. Critical Care Time (minutes): 60 Physical Exam Vital Signs: Vital Signs: Last Vital Signs Temp 100.8 F H 12/05/24 09:00 Pulse 93 12/05/24 09:00 Resp 25 H 12/05/24 09:00 BP 112/64 12/05/24 09:00 Pulse Ox 97 12/05/24 09:00 O2 Del Method Mechanical Ventil ation 12/05/24 09:00 O2 Flow Rate 35 11/19/24 16:00 FiO2 35 12/05/24 09:00 Oxygen Flow Rate 15 10/29/24 14:07 BMI result Body Mass Index 30.8 Const: General: no acute distress and awake Eyes: Sclerae: sclerae normal EOM: EOMs intact bilaterally Neck: Neck: Yes no lymphadenopathy, Yes trachea midline and Yes supple Resp: Auscultation: crackles (Mild bilateral) Cardio: Rate: regular rate Rhythm: abnormal rhythm irregularly irregular Heart sounds: no gallops, no murmurs and no rubs GI: Palpation (GI): Soft to palpation and Other GI palpation findings present ( Nontender) Auscultation: normal bowel sounds Extrem: General: No clubbing, No cyanosis and Yes edema (Trace bilateral) Objective Data Labs 12/05/24 05:30 12/05/24 05:30 Labs: Laboratory Results - last 24 hr 12/04/24 12/04/24 12/05/24 11:09 17:22 00:01 WBC RBC Hgb Hct MCV MCH MCHC RDW Plt Count MPV Immature Gran % (Auto) Neut % (Auto) Lymph % (Auto) [place] % (Auto) Eos % (Auto) Baso % (Auto) Lymph # (Auto) [place] # (Auto) Eos # (Auto) Baso # (Auto) Abs Immat Gran (auto) Absolute Neuts (auto) Absolute Nucleated RBC Nucleated RBC % (auto) VBG pH VBG pCO2 VBG pO2 VBG HCO3 VBG O2 Saturation VBG Base Excess Sodium Potassium Chloride Carbon Dioxide Anion Gap BUN Creatinine Estim Creat Clear Calc Estimated GFR POC Glucose 213 H 217 H 249 H Random Glucose Calcium Phosphorus Magnesium Total Bilirubin AST ALT Alkaline Phosphatase Total Protein Albumin 12/05/24 12/05/24 05:30 05:33 WBC 12.7 H RBC 3.01 L Hgb 8.5 L Hct 27.5 L MCV 91.4 MCH 28.2 MCHC 30.9 L RDW 17.0 H Plt Count 158 L MPV 11.6 Immature Gran % (Auto) 0.6 H Neut % (Auto) 47.7 Lymph % (Auto) 36.0 [place] % (Auto) 9.9 Eos % (Auto) 5.2 H Baso % (Auto) 0.6 Lymph # (Auto) 4.6 [place] # (Auto) 1.3 H Eos # (Auto) 0.7 H Baso # (Auto) 0.1 Abs Immat Gran (auto) 0.08 H Absolute Neuts (auto) 6.0 Absolute Nucleated RBC 0.000 Nucleated RBC % (auto) 0.0 VBG pH 7.60 H* VBG pCO2 48 VBG pO2 44 VBG HCO3 48 H VBG O2 Saturation 76.0 VBG Base Excess 24.1 Sodium 138 Potassium 3.6 Chloride 93 L Carbon Dioxide 36 H Anion Gap 13 BUN 30 H Creatinine 0.59 Estim Creat Clear Calc 117.1 Estimated GFR > 60 POC Glucose Random Glucose 243 H Calcium 8.9 Phosphorus 3.2 Magnesium 2.2 Total Bilirubin 0.5 AST 27 ALT < 6 Alkaline Phosphatase 214 H Total Protein 8.3 H Albumin 2.8 L Microbiology Microbiology Results: Microbiology 11/22/24 10:00 Groin, Left Gram Stain - Final 11/22/24 10:00 Groin, Left Routine Culture - Final No growth after 2 days 11/22/24 10:00 Groin, Left Anaerobic Culture - Final NO GROWTH AFTER 5 DAYS 11/21/24 16:36 Groin Gram Stain - Final 11/21/24 16:36 Groin Routine Culture - Final Proteus mirabilis Pseudomonas aeruginosa Pseudomonas aeruginosa#2 11/02/24 09:16 Groin, Right Gram Stain - Final 11/02/24 09:16 Groin, Right Routine Culture - Final Proteus mirabilis So albicans 10/29/24 15:29 Blood - Venous Blood Culture - Final No growth after 5 days. 10/29/24 14:42 Blood - Venous Blood Culture - Final No growth after 5 days. 10/29/24 Unknown Urine Catheterized - Kelly Catheter Urine Culture - Final Escherichia coli Progress Note: A&P Assessment and plan (1) Heart failure with reduced ejection fraction: Status: Acute (2) Persistent atrial fibrillation: Status: Acute (3) Non-insulin dependent type 2 diabetes mellitus: Status: Acute (4) Tracheostomy in place: Status: Acute (5) Gastrostomy in place: Status: Acute (6) Chronic indwelling Kelly catheter: Status: Acute (7) Skin necrosis: Status: Acute (8) Idiopathic pulmonary fibrosis: Status: Acute (9) Acute encephalopathy: Status: Acute (10) Acute on chronic hypoxic respiratory failure: Status: Acute (11) Failure to wean from mechanical ventilation: Status: Acute Plan Assessment: 79-year-old gentleman with underlying multiple medical issues admitted with ESBL UTI further complicated by septic shock, acute respiratory failure requiring ventilatory support, multiorgan failure, and hemorrhagic shock as a complication of femoral hematoma with residual abscess percutaneous drain, also with recurrent pulmonary aspiration past tracheostomy cuff and critical illness myopathy poor tolerance of pressure support trials Plan: Neuro: Acute encephalopathy, very slowly improving. Underlying chronic dysphagia. Critical illness myopathy. Cardiac: Underlying paroxysmal AFib and chronic systolic congestive heart failure. Pulmonary: Acute hypoxic respiratory failure with inability to wean from ventilatory support. Status post tracheostomy/gastrostomy on 11/15/2024. Continue to titrate off ventilatory support as tolerated. Underlying pulmonary fibrosis. Aspirating past tracheostomy cuff with resultant poor tolerance of pressor support trials. Renal: No acute issues. Endo: No acute issues. Underlying diabetes mellitus, continue subcutaneous insulin. GI: No acute issues. Status post PEG. ID: ESBL UTI, s/p meropnem course. Femoral abscess continue cefepime. Heme/Onc: No acute issues. Psych: No acute issues. Miscellaneous: Overall very poor prognosis for meaningful recovery. Discussions of goals of care are ongoing with the family. Prophylaxis: Lovenox, ppi Diet: Tube feeds Critical care time spent: 60 minutes Quality Stroke Does the patient have a stroke diagnosis?: No VTE Prior VTE?: No VTE Risk Level:: Medical - moderate - high VTE Device Contraindication: N/A - Device Ordered VTE Drug Contraindication: N/A - Med Ordered
--- NOTE | 2024-12-05 10:21 | MHC.CLN ---
F/U DISCUSSED AT ROUNDS WITH GLUCERNA TUBE FEEDING BACK IN STOCK RECOMMEND RE-STARTING GLUCERNA 1.0 AT MAX GOAL RATE 90ML/HR WITH 30ML PROSOURCE BID AND 120ML FREE WATER FLUSHES Q 6 HRS PROVIDES 2280KCALS (31KCALS/KG IBW), 120G TOTAL PROTEIN (1.6G/KG IBW), 2322ML TOTAL FREE WATER FROM FORMULA AND FLUSHES (32ML/KG IBW) CONTINUE TO MONITOR TOLERANCE, BS AND LYTES
[2024-12-05 11:31] LABS: Glucose, Whole Blood 230 mg/dL (60-115)
[2024-12-05] MEDS: cefEPime HCl 1 GM in 0.9 % Sodium Chloride 50 ML IV ×2 (11:59→22:43)
[2024-12-05] MEDS: Acetaminophen 1,000 MG/100 ML PIGGYBACK 400 MG IV (12:00)
--- NOTE | 2024-12-05 13:30 | MHC.CM.PN ---
Pt unable to tolerate trach mask: on Levo gtt and IV ATB, febrile with leukocytosis at 12.7 today. VIBRA following: per discussion w/liasion: pt is not stable for transfer: will need to be off Levo and showing a decrease in WBC and fever as well as tolerating some trach mask trials. MD and RN have been trying to contact pt's son/HCP to give clinical updates/discuss goals of care without reaching him. CM to follow.
--- NOTE | 2024-12-05 14:46 | P.PNCC_ITS ---
Critical Care Event Note Summary Date of Service: 12/05/24 Code activated: No Narrative: Patient's son requested lateral transfer to [facility] secondary to concern for quality of care at [facility]. Request placed with [facility] transfer line. Documents requested are being faxed. Critical Care Time (minutes): 0
[2024-12-05 18:00] LABS: Glucose, Whole Blood 203 mg/dL (60-115)
[2024-12-05 20:09] LABS: Anion Gap 13 (12-20); Blood Urea Nitrogen 30 mg/dL (9-16); Calcium 9.2 mg/dL (8.4-10.2); Carbon Dioxide 36 mmol/L (22-29); Chloride 92 mmol/L (96-108); Creatinine Clr Calc Pharmacy 113.2; Estimated Glomerular Filt Rate > 60; Glucose Random 198 mg/dL (60-115); Magnesium 2.1 mg/dL (1.6-2.6); Phosphorus 3.1 mg/dL (2.7-4.5); Potassium 3.3 mmol/L (3.3-5.1); Sodium 138 mmol/L (135-145)
[2024-12-05] MEDS: Norepinephrine Bitartrate/D5W 8 MG/250 ML PLAST..BAG 23.47 MG IVCONT (20:17)
[2024-12-05 23:32] LABS: Glucose, Whole Blood 213 mg/dL (60-115)
[2024-12-06] VITALS (39 sets, daily range): BP systolic 98–143; BP diastolic 40–84; PULSE 66–114; RESP 10–32; TEMP 34.9–38.5; O2SAT 91–99; BMI 31.6
[2024-12-06] MEDS: Acetaminophen 1,000 MG/100 ML PIGGYBACK 400 MG IV ×2 (00:42→12:37)
[2024-12-06] MEDS: Albumin Human 25 % 100 ML IV (01:58)
[2024-12-06 05:23] LABS: VBG Base Excess 22.6 mmol/L; VBG HCO3 46 mmol/L (22-26); VBG pCO2 47 mmHg; VBG pO2 39 mmHg
[2024-12-06 05:44] LABS: Venous Blood Gas Refer to POC result
[2024-12-06 06:00] LABS: MANUAL DIFF FLAG NO
[2024-12-06 06:02] LABS: Basophils Absolute Auto 0.1 X10*3/uL (0.0-0.2); Basophils Percent Auto 0.5 % (0-2); Eosinophils Absolute Auto 0.7 X10*3/uL (0.0-0.4); Eosinophils Percent Auto 5.4 % (0-4); Hematocrit 25.4 % (42.0-52.0); Imm Gran Abs Auto 0.07 X10*3/uL (0.00-0.03); Imm Gran Pct Auto 0.5 % (0.0-0.4); Lymphocytes Absolute Auto 4.7 X10*3/uL (1.2-4.9); Lymphocytes Percent Auto 35.6 % (20-40); Mean Corpuscular HGB Conc 31.5 g/dl (31.0-36.0); Mean Platelet Volume 12.6 fL (9.4-12.4); Monocytes Absolute Auto 1.2 X10*3/uL (0.1-1.2); Monocytes Percent Auto 9.3 % (2-11); Neutrophils Absolute Auto 6.4 x10*3/uL (2.0-8.3); Neutrophils Percent Auto 48.7 % (45-73); Platelet Count 139 X10*3/uL (160-400); Red Blood Count 2.76 X10*6/uL (4.60-5.80); Red Cell Distribution Width 17.1 % (11.0-16.0); White Blood Count 13.1 X10*3/uL (4.8-10.8)
[2024-12-06 06:11] LABS: Glucose, Whole Blood 202 mg/dL (60-115)
[2024-12-06] MEDS: Insulin Lispro 100 UNIT/ML 3 ML VIAL SUBCUT ×4 (06:15→23:42)
[2024-12-06 06:24] LABS: Albumin Level 3.5 g/dL (3.5-5.0); Anion Gap 13 (12-20); Blood Urea Nitrogen 28 mg/dL (9-16); Calcium 9.4 mg/dL (8.4-10.2); Carbon Dioxide 36 mmol/L (22-29); Chloride 92 mmol/L (96-108); Creatinine Clr Calc Pharmacy 118.5; Estimated Glomerular Filt Rate > 60; Glucose Random 211 mg/dL (60-115); Magnesium 2.2 mg/dL (1.6-2.6); Phosphorus 3.9 mg/dL (2.7-4.5); Potassium 3.5 mmol/L (3.3-5.1); Sodium 137 mmol/L (135-145)
--- NOTE | 2024-12-06 06:28 | PC.NURSE ---
Assumed care 1900, pt trach/vent on precedex, RASS-1. On ACVC settings - see vent assessment. Levophed titrated per NOV. Increased edema/redness noted to R hand - orders to elevate extremity per BRIAN Rushing.?Dsg changed L groin - see wound/incision assessment. Updated wound photo below - BRIAN Rushing aware.?
[2024-12-06] MEDS: Famotidine/PF 20 MG/2 ML VIAL IVPUSH (08:20)
[2024-12-06] MEDS: Furosemide 40 MG/4 ML VIAL 60 MG IVPUSH ×2 (08:20→17:50)
[2024-12-06] MEDS: 0.9 % Sodium Chloride Flush 3 ML SYRINGE IVFLUSH ×3 (08:21→23:13)
[2024-12-06] MEDS: Chlorhexidine Gluc Oral Rinse 15 ML MOUTHWASH BUCCAL ×3 (08:21→20:29)
[2024-12-06] MEDS: Enoxaparin Sodium 40 MG/0.4 ML SYRINGE SUBCUT (08:21)
[2024-12-06] MEDS: Potassium Chloride Packet 20 MEQ PACKET 40 MEQ G-TUBE (08:21)
[2024-12-06] MEDS: dexmedeTOMIDidine HCL/NS 400 MCG/100 ML INFUS..BTL 9.46 MCG IVCONT ×2 (09:15→18:03)
--- NOTE | 2024-12-06 09:42 | P.PNCC_ITS ---
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, chronic systolic congestive heart failure, prostate cancer, chronic UTIs, diabetes mellitus type 2, dysphagia admitted with septic shock secondary to ESBL UTI with hospital course further complicated by multiorgan failure including acute hypoxic respiratory failure requiring intubation and ventilatory support on 11/01/2024, and hemorrhagic shock secondary to femoral hematoma requiring evacuation in OR on 11/11/2024, and placement of TJ drain to drain residual abscess on 11/21/2024, also with failure to wean from ventilatory support, status post tracheostomy and parenteral gastrostomy on 11/15/2024, now with recurrent pulmonary aspiration past tracheostomy cuff and progressive critical illness myopathy resulting in poor tolerance of pressure support trials. No events overnight. Critical Care Time (minutes): 60 Physical Exam 2 Vital Signs: Vital Signs: Last Vital Signs Temp 99.5 F 12/06/24 09:00 Pulse 89 12/06/24 09:00 Resp 25 H 12/06/24 09:00 BP 124/74 12/06/24 09:00 Pulse Ox 96 12/06/24 09:00 O2 Del Method Mechanical Ventil ation 12/06/24 09:00 O2 Flow Rate 35 11/19/24 16:00 FiO2 35 12/06/24 09:00 Oxygen Flow Rate 15 10/29/24 14:07 BMI result Body Mass Index 31.6 Const: General: no acute distress, alert, awake and other (Mouthing words ) Eyes: Sclerae: sclerae normal EOM: EOMs intact bilaterally Neck: Neck: Yes no lymphadenopathy, Yes trachea midline, Yes supple and Yes tracheostomy present (On vent) Resp: Auscultation: clear to auscultation bilaterally Cardio: Rate: regular rate Rhythm: abnormal rhythm irregularly irregular Heart sounds: no gallops, no murmurs and no rubs GI: Inspection: Yes G-tube present Palpation (GI): Soft to palpation and Other GI palpation findings present ( Nontender) Auscultation: normal bowel sounds Extrem: Other: Left groin surgical site with ability to express small amount of serous drainage, some induration, no fluctuance. General: No clubbing, No cyanosis and Yes edema (Trace bilateral) Objective Data Labs 12/06/24 05:09 12/06/24 05:09 Labs: Laboratory Results - last 24 hr 12/05/24 12/05/24 12/05/24 11:24 17:46 19:46 WBC RBC Hgb Hct MCV MCH MCHC RDW Plt Count MPV Immature Gran % (Auto) Neut % (Auto) Lymph % (Auto) [place] % (Auto) Eos % (Auto) Baso % (Auto) Lymph # (Auto) [place] # (Auto) Eos # (Auto) Baso # (Auto) Abs Immat Gran (auto) Absolute Neuts (auto) Absolute Nucleated RBC Nucleated RBC % (auto) VBG pH VBG pCO2 VBG pO2 VBG HCO3 VBG O2 Saturation VBG Base Excess Sodium 138 Potassium 3.3 Chloride 92 L Carbon Dioxide 36 H Anion Gap 13 BUN 30 H Creatinine 0.61 Estim Creat Clear Calc 113.2 Estimated GFR > 60 POC Glucose 230 H 203 H Random Glucose 198 H Calcium 9.2 Phosphorus 3.1 Magnesium 2.1 Albumin 12/05/24 12/06/24 12/06/24 23:29 05:09 05:18 WBC 13.1 H RBC 2.76 L Hgb 8.0 L Hct 25.4 L MCV 92.0 MCH 29.0 MCHC 31.5 RDW 17.1 H Plt Count 139 L MPV 12.6 H Immature Gran % (Auto) 0.5 H Neut % (Auto) 48.7 Lymph % (Auto) 35.6 [place] % (Auto) 9.3 Eos % (Auto) 5.4 H Baso % (Auto) 0.5 Lymph # (Auto) 4.7 [place] # (Auto) 1.2 Eos # (Auto) 0.7 H Baso # (Auto) 0.1 Abs Immat Gran (auto) 0.07 H Absolute Neuts (auto) 6.4 Absolute Nucleated RBC 0.000 Nucleated RBC % (auto) 0.0 VBG pH 7.60 H* VBG pCO2 47 VBG pO2 39 VBG HCO3 46 H VBG O2 Saturation 66.0 VBG Base Excess 22.6 Sodium 137 Potassium 3.5 Chloride 92 L Carbon Dioxide 36 H Anion Gap 13 BUN 28 H Creatinine 0.59 Estim Creat Clear Calc 118.5 Estimated GFR > 60 POC Glucose 213 H Random Glucose 211 H Calcium 9.4 Phosphorus 3.9 Magnesium 2.2 Albumin 3.5 12/06/24 05:47 WBC RBC Hgb Hct MCV MCH MCHC RDW Plt Count MPV Immature Gran % (Auto) Neut % (Auto) Lymph % (Auto) [place] % (Auto) Eos % (Auto) Baso % (Auto) Lymph # (Auto) [place] # (Auto) Eos # (Auto) Baso # (Auto) Abs Immat Gran (auto) Absolute Neuts (auto) Absolute Nucleated RBC Nucleated RBC % (auto) VBG pH VBG pCO2 VBG pO2 VBG HCO3 VBG O2 Saturation VBG Base Excess Sodium Potassium Chloride Carbon Dioxide Anion Gap BUN Creatinine Estim Creat Clear Calc Estimated GFR POC Glucose 202 H Random Glucose Calcium Phosphorus Magnesium Albumin Microbiology Microbiology Results: Microbiology 11/22/24 10:00 Groin, Left Gram Stain - Final 11/22/24 10:00 Groin, Left Routine Culture - Final No growth after 2 days 11/22/24 10:00 Groin, Left Anaerobic Culture - Final NO GROWTH AFTER 5 DAYS 11/21/24 16:36 Groin Gram Stain - Final 11/21/24 16:36 Groin Routine Culture - Final Proteus mirabilis Pseudomonas aeruginosa Pseudomonas aeruginosa#2 11/02/24 09:16 Groin, Right Gram Stain - Final 11/02/24 09:16 Groin, Right Routine Culture - Final Proteus mirabilis So albicans 10/29/24 15:29 Blood - Venous Blood Culture - Final No growth after 5 days. 10/29/24 14:42 Blood - Venous Blood Culture - Final No growth after 5 days. 10/29/24 Unknown Urine Catheterized - Kelly Catheter Urine Culture - Final Escherichia coli Progress Note: A&P Assessment and plan (1) Heart failure with reduced ejection fraction: Status: Acute (2) Persistent atrial fibrillation: Status: Acute (3) Non-insulin dependent type 2 diabetes mellitus: Status: Acute (4) Tracheostomy in place: Status: Acute (5) Gastrostomy in place: Status: Acute (6) Chronic indwelling Kelly catheter: Status: Acute (7) Myopathy: Status: Acute (8) Skin necrosis: Status: Acute (9) Encephalopathy: Status: Acute (10) Idiopathic pulmonary fibrosis: Status: Acute (11) Failure to wean from mechanical ventilation: Status: Acute Plan Assessment: 79-year-old gentleman with underlying multiple medical issues admitted with ESBL UTI further complicated by septic shock, acute respiratory failure requiring ventilatory support, multiorgan failure, and hemorrhagic shock as a complication of femoral hematoma with residual abscess percutaneous drain, also with recurrent pulmonary aspiration past tracheostomy cuff and critical illness myopathy poor tolerance of pressure support trials Plan: Neuro: Acute encephalopathy, very slowly improving. Underlying chronic dysphagia. Critical illness myopathy. Cardiac: Underlying paroxysmal AFib and chronic systolic congestive heart failure. Pulmonary: Acute hypoxic respiratory failure with inability to wean from ventilatory support. Status post tracheostomy/gastrostomy on 11/15/2024. Continue to titrate off ventilatory support as tolerated. Underlying pulmonary fibrosis. Aspirating past tracheostomy cuff with resultant poor tolerance of pressor support trials. Renal: No acute issues. Endo: No acute issues. Underlying diabetes mellitus, continue subcutaneous insulin. GI: No acute issues. Status post PEG. ID: ESBL UTI, s/p meropnem course. Femoral abscess continue cefepime. Heme/Onc: No acute issues. Psych: No acute issues. Miscellaneous: Overall very poor prognosis for meaningful recovery. Patient's son requested transfer to [facility] secondary to concerns for quality of care at [facility], request placed with [facility] transfer center on 12/05/2024, reviewed and denied by [facility] secondary to financial reasons and lack of medical reasons for lateral transfer. Prophylaxis: Lovenox, ppi Diet: Tube feeds Critical care time spent: 60 minutes Quality Stroke Does the patient have a stroke diagnosis?: No VTE Prior VTE?: No VTE Risk Level:: Medical - moderate - high VTE Device Contraindication: N/A - Device Ordered VTE Drug Contraindication: N/A - Med Ordered
--- NOTE | 2024-12-06 10:12 | MHC.CLN ---
F/U DISCUSSED AT ROUNDS WITH MD REVIEWED LABS CONTINUE GLUCERNA 1.0 AT MAX GOAL RATE 90ML/HR WITH 30ML PROSOURCE BID AND 120ML FREE WATER FLUSHES Q 6 HRS PROVIDES 2280KCALS (31KCALS/KG IBW), 120G TOTAL PROTEIN (1.6G/KG IBW), 2322ML TOTAL FREE WATER FROM FORMULA AND FLUSHES (32ML/KG IBW) TF WITH PROSOURCE WILL PROMOTE WOUND HEALING CONTINUE TO MONITOR TOLERANCE AND LYTES
[2024-12-06] MEDS: cefEPime HCl 1 GM in 0.9 % Sodium Chloride 50 ML IV ×2 (10:17→23:13)
[2024-12-06 12:03] LABS: Glucose, Whole Blood 187 mg/dL (60-115)
--- NOTE | 2024-12-06 12:35 | MHC.CM.PN ---
Pt continues care in ICU: on Levophed gtt/and trials w/PSV. Groin hematoma surgical site w/slough/diane/TJ drain. Telephone discussion w/[facility] cordovasion: pt not clinically stable for transfer d/t Levophed, fluctuant WBC/fever and difficulty vent weaning. Message left for HCP/son Jose requestiong a broader LTACH referral to surrounding [place] - waiting for callback. Daniel of [place] interested and may be able to offer a bed. Shubham Emily [phone] will follow at this time. Son spoke w/MD and is not satisfied with pt's progress or care. [facility] declined to accept pt on transfer. CM to continue to seek placement for pt.
--- NOTE | 2024-12-06 17:03 | HO.SKINPHOTO ---
Location:coccyx Category: Stage: Length: Width: Depth: cm Location: Category: Stage: Length: Width: Depth: cm Location: Category: Stage: Length: Width: Depth: cm Location: Category: Stage: Length: Width: Depth: cm Location: Category: Stage: Length: Width: Depth: cm Location: Category: Stage: Length: Width: Depth: cm
[2024-12-06] MEDS: Norepinephrine Bitartrate/D5W 8 MG/250 ML PLAST..BAG 5.42 MG IVCONT (17:06)
[2024-12-06 17:28] LABS: Glucose, Whole Blood 182 mg/dL (60-115)
--- NOTE | 2024-12-06 18:09 | PC.NURSE ---
Assumed care at 0700. Pt switched to PSV of 18/5 with fio2 of 35% at approx 0800. Pt placed back on ACVC+ at approx 1000. Care plan is partly to lower pressors as able, PSV as tolerated, passive PT/ROM. Pt remains on precedex drip. TF tolerated at goal rate. Pt repositioned q2h.
[2024-12-06 23:37] LABS: Glucose, Whole Blood 188 mg/dL (60-115)
[2024-12-07] VITALS (39 sets, daily range): BP systolic 76–131; BP diastolic 34–97; PULSE 75–128; RESP 16–34; TEMP 34.9–38.6; O2SAT 89–100; BMI 32.0
[2024-12-07] MEDS: fentaNYL citrate/PF 100 MCG/2 ML VIAL 50 MCG IVPUSH (01:15)
[2024-12-07] MEDS: dexmedeTOMIDidine HCL/NS 400 MCG/100 ML INFUS..BTL 18.92 MCG IVCONT (03:13)
[2024-12-07 05:22] LABS: Glucose, Whole Blood 173 mg/dL (60-115)
[2024-12-07] MEDS: Insulin Lispro 100 UNIT/ML 3 ML VIAL SUBCUT ×3 (05:36→23:53)
[2024-12-07 05:43] LABS: VBG Base Excess 20.4 mmol/L; VBG HCO3 44 mmol/L (22-26); VBG pCO2 47 mmHg; VBG pH 7.57 (7.32-7.43); VBG pO2 41 mmHg
[2024-12-07 05:54] LABS: MANUAL DIFF FLAG NO
[2024-12-07 05:55] LABS: Basophils Absolute Auto 0.1 X10*3/uL (0.0-0.2); Basophils Percent Auto 0.4 % (0-2); Eosinophils Absolute Auto 0.8 X10*3/uL (0.0-0.4); Eosinophils Percent Auto 6.1 % (0-4); Hematocrit 26.9 % (42.0-52.0); Hemoglobin 8.1 g/dl (14.0-18.0); Imm Gran Abs Auto 0.07 X10*3/uL (0.00-0.03); Imm Gran Pct Auto 0.5 % (0.0-0.4); Lymphocytes Absolute Auto 4.7 X10*3/uL (1.2-4.9); Lymphocytes Percent Auto 34.7 % (20-40); Mean Corpuscular HGB Conc 30.1 g/dl (31.0-36.0); Mean Corpuscular Hemoglobin 28.2 pg (27.0-33.0); Mean Corpuscular Volume 93.7 fL (80.0-98.0); Mean Platelet Volume 12.2 fL (9.4-12.4); Monocytes Percent Auto 7.5 % (2-11); Neutrophils Absolute Auto 6.8 x10*3/uL (2.0-8.3); Neutrophils Percent Auto 50.8 % (45-73); Platelet Count 147 X10*3/uL (160-400); Red Blood Count 2.87 X10*6/uL (4.60-5.80); Red Cell Distribution Width 17.2 % (11.0-16.0); White Blood Count 13.5 X10*3/uL (4.8-10.8)
[2024-12-07 06:17] LABS: Albumin Level 2.9 g/dL (3.5-5.0); Anion Gap 14 (12-20); Blood Urea Nitrogen 33 mg/dL (9-16); Carbon Dioxide 35 mmol/L (22-29); Chloride 92 mmol/L (96-108); Creatinine Clr Calc Pharmacy 109.9; Estimated Glomerular Filt Rate > 60; Glucose Random 209 mg/dL (60-115); Magnesium 2.3 mg/dL (1.6-2.6); Phosphorus 4.4 mg/dL (2.7-4.5); Potassium 4.5 mmol/L (3.3-5.1); Sodium 136 mmol/L (135-145)
--- NOTE | 2024-12-07 06:19 | PC.NURSE ---
Assumed care 1900 - pt trach/vent, on precedex - restless at times, see MAR for titrations. Fentanyl 50 mcg IVP given for pain with good effect - see MAR. On ACVC settings - see vent assessment. Levophed titrated per MAR.
[2024-12-07 06:20] LABS: Venous Blood Gas Refer to POC result
[2024-12-07] MEDS: 0.9 % Sodium Chloride Flush 3 ML SYRINGE IVFLUSH ×3 (07:12→23:11)
[2024-12-07] MEDS: Albumin Human 25 % 100 ML IV ×3 (07:12→19:11)
[2024-12-07] MEDS: Chlorhexidine Gluc Oral Rinse 15 ML MOUTHWASH BUCCAL ×3 (08:18→20:56)
[2024-12-07] MEDS: Furosemide 40 MG/4 ML VIAL 60 MG IVPUSH (08:18)
[2024-12-07] MEDS: Enoxaparin Sodium 40 MG/0.4 ML SYRINGE SUBCUT (08:18)
[2024-12-07] MEDS: Famotidine/PF 20 MG/2 ML VIAL IVPUSH (08:18)
--- NOTE | 2024-12-07 10:10 | P.PNCC_ITS ---
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, chronic systolic congestive heart failure, prostate cancer, chronic UTIs, diabetes mellitus type 2, dysphagia admitted with septic shock secondary to ESBL UTI with hospital course further complicated by multiorgan failure including acute hypoxic respiratory failure requiring intubation and ventilatory support on 11/01/2024, and hemorrhagic shock secondary to femoral hematoma requiring evacuation in OR on 11/11/2024, and placement of TJ drain to drain residual abscess on 11/21/2024, also with failure to wean from ventilatory support, status post tracheostomy and parenteral gastrostomy on 11/15/2024, now with recurrent pulmonary aspiration past tracheostomy cuff and progressive critical illness myopathy resulting in poor tolerance of pressure support trials, though slowly improving. No events overnight. Titrated off Precedex drip and pressors. Critical Care Time (minutes): 60 Physical Exam 2 Vital Signs: Vital Signs: Last Vital Signs Temp 100.0 F 12/07/24 09:00 Pulse 113 H 12/07/24 09:18 Resp 18 12/07/24 09:00 BP 117/60 12/07/24 09:18 Pulse Ox 90 L 12/07/24 09:00 O2 Del Method Mechanical Ventil ation 12/07/24 09:00 O2 Flow Rate 35 11/19/24 16:00 FiO2 35 12/07/24 09:00 Oxygen Flow Rate 15 10/29/24 14:07 BMI result Body Mass Index 32.0 Const: General: no acute distress and lethargic (Intermittently arousable, intermittently cursing) Orientation/consciousness: lethargic (Intermittently arousable, intermittently cursing) Eyes: Sclerae: sclerae normal Neck: Neck: Yes no lymphadenopathy, Yes trachea midline, Yes supple and Yes tracheostomy present (On ventilatory support) Resp: Auscultation: crackles (Mild bilateral) Cardio: Rate: regular rate Rhythm: regular rhythm Heart sounds: no gallops, no murmurs and no rubs GI: Inspection: Yes G-tube present Palpation (GI): Soft to palpation and Other GI palpation findings present ( Nontender) Auscultation: normal bowel sounds Extrem: General: No clubbing, No cyanosis and Yes edema (Trace bilateral) Objective Data Labs 12/07/24 05:30 12/07/24 05:30 Labs: Laboratory Results - last 24 hr 12/06/24 12/06/24 12/06/24 11:44 17:18 23:34 WBC RBC Hgb Hct MCV MCH MCHC RDW Plt Count MPV Immature Gran % (Auto) Neut % (Auto) Lymph % (Auto) [place] % (Auto) Eos % (Auto) Baso % (Auto) Lymph # (Auto) [place] # (Auto) Eos # (Auto) Baso # (Auto) Abs Immat Gran (auto) Absolute Neuts (auto) Absolute Nucleated RBC Nucleated RBC % (auto) VBG pH VBG pCO2 VBG pO2 VBG HCO3 VBG O2 Saturation VBG Base Excess Sodium Potassium Chloride Carbon Dioxide Anion Gap BUN Creatinine Estim Creat Clear Calc Estimated GFR POC Glucose 187 H 182 H 188 H Random Glucose Calcium Phosphorus Magnesium Albumin 12/07/24 12/07/24 12/07/24 05:15 05:30 05:40 WBC 13.5 H RBC 2.87 L Hgb 8.1 L Hct 26.9 L MCV 93.7 MCH 28.2 MCHC 30.1 L RDW 17.2 H Plt Count 147 L MPV 12.2 Immature Gran % (Auto) 0.5 H Neut % (Auto) 50.8 Lymph % (Auto) 34.7 [place] % (Auto) 7.5 Eos % (Auto) 6.1 H Baso % (Auto) 0.4 Lymph # (Auto) 4.7 [place] # (Auto) 1.0 Eos # (Auto) 0.8 H Baso # (Auto) 0.1 Abs Immat Gran (auto) 0.07 H Absolute Neuts (auto) 6.8 Absolute Nucleated RBC 0.000 Nucleated RBC % (auto) 0.0 VBG pH 7.57 H VBG pCO2 47 VBG pO2 41 VBG HCO3 44 H VBG O2 Saturation 69.0 VBG Base Excess 20.4 Sodium 136 Potassium 4.5 D Chloride 92 L Carbon Dioxide 35 H Anion Gap 14 BUN 33 H Creatinine 0.64 Estim Creat Clear Calc 109.9 Estimated GFR > 60 POC Glucose 173 H Random Glucose 209 H Calcium 9.0 Phosphorus 4.4 Magnesium 2.3 Albumin 2.9 L Microbiology Microbiology Results: Microbiology 11/22/24 10:00 Groin, Left Gram Stain - Final 11/22/24 10:00 Groin, Left Routine Culture - Final No growth after 2 days 11/22/24 10:00 Groin, Left Anaerobic Culture - Final NO GROWTH AFTER 5 DAYS 11/21/24 16:36 Groin Gram Stain - Final 11/21/24 16:36 Groin Routine Culture - Final Proteus mirabilis Pseudomonas aeruginosa Pseudomonas aeruginosa#2 11/02/24 09:16 Groin, Right Gram Stain - Final 11/02/24 09:16 Groin, Right Routine Culture - Final Proteus mirabilis So albicans 10/29/24 15:29 Blood - Venous Blood Culture - Final No growth after 5 days. 10/29/24 14:42 Blood - Venous Blood Culture - Final No growth after 5 days. 10/29/24 Unknown Urine Catheterized - Kelly Catheter Urine Culture - Final Escherichia coli Progress Note: A&P Assessment and plan (1) Heart failure with reduced ejection fraction: Status: Acute (2) Persistent atrial fibrillation: Status: Acute (3) Non-insulin dependent type 2 diabetes mellitus: Status: Acute (4) Tracheostomy in place: Status: Acute (5) Gastrostomy in place: Status: Acute (6) Chronic indwelling Kelly catheter: Status: Acute (7) Myopathy: Status: Acute (8) Skin necrosis: Status: Acute (9) Encephalopathy: Status: Acute (10) Idiopathic pulmonary fibrosis: Status: Acute (11) Failure to wean from mechanical ventilation: Status: Acute Plan Assessment: 79-year-old gentleman with underlying multiple medical issues admitted with ESBL UTI further complicated by septic shock, acute respiratory failure requiring ventilatory support, multiorgan failure, and hemorrhagic shock as a complication of femoral hematoma with residual abscess percutaneous drain, also with recurrent pulmonary aspiration past tracheostomy cuff and critical illness myopathy poor tolerance of pressure support trials Plan: Neuro: Acute encephalopathy, very slowly improving. Underlying chronic dysphagia. Critical illness myopathy. Cardiac: Underlying paroxysmal AFib and chronic systolic congestive heart failure. Pulmonary: Acute hypoxic respiratory failure with inability to wean from ventilatory support. Status post tracheostomy/gastrostomy on 11/15/2024. Continue to titrate off ventilatory support as tolerated. Underlying pulmonary fibrosis. Aspirating past tracheostomy cuff with resultant poor tolerance of pressor support trials. Renal: No acute issues. Endo: No acute issues. Underlying diabetes mellitus, continue subcutaneous insulin. GI: No acute issues. Status post PEG. ID: ESBL UTI, s/p meropnem course. Femoral abscess continue cefepime. Heme/Onc: No acute issues. Psych: No acute issues. Miscellaneous: Overall very poor prognosis for meaningful recovery. Patient's son requested transfer to [facility] secondary to concerns for quality of care at [facility], request placed with [facility] transfer center on 12/05/2024, reviewed and denied by [facility] secondary to financial reasons and lack of medical reasons for lateral transfer. Patient tentatively accepted to [facility], however patient's son refused to allow out of state transfer. Prophylaxis: Lovenox, ppi Diet: Tube feeds Critical care time spent: 60 minutes Quality Stroke Does the patient have a stroke diagnosis?: No VTE Prior VTE?: No VTE Risk Level:: Medical - moderate - high VTE Device Contraindication: N/A - Device Ordered VTE Drug Contraindication: N/A - Med Ordered
--- NOTE | 2024-12-07 10:36 | MHC.CM.PN ---
Addendum entered by Val Eugene 12/07/24 15:09: CM unable to meet with pt's HCP/son Jose - call placed to Jose in the presence of ICU and CM director. Informed Jose that [facility] has not given pt medical acceptance to transfer but [facility] in [facility] has. Informed Jose that placement is not permanent and that [facility] will assist pt in returning to a facility locally once he is medically appropriate to do so. Jose gave consent to transfer pt. Monica to transport pt today at 4:30pm ALS. ICU aware of d/c plan. Call placed to [facility] - spoke w/liajohn Diaz to inform her of pt's scheduled arrival. Call back to Jose to inform him of transport time and to review IMM. Jose not redirectable - focused on his grievances and spoke over CM attempts to interject with information. CM informed Jose that a copy would be sent certified mail however, Jose disconnected the call. Original Note: No call back from pt's son/HCP re: message left on 12/06 by CM re: expansion of LTACH search. 12/07 Discussion w/MD at rounds: Levophed and Fentanyl d/c'd, PSV trials to continue. FiO2 at 35%. MD states pt is medically stable for transfer to LTACH. Call placed to [facility]. Reviewed pt's VS, vent settings, med list, labs: Per Estela, pt will need to off of Levophed/Fentanyl x 24 hours and show temps under 99.9. The WBC of 13 but no higher will be considered. Pt also must continue to trial PSV settings. She states [facility] will continue to follow but at this time, pt is not ready for clinical acceptance. Received call from Glory at [facility] in [facility]. Clinical received from 12/06 reviewed and pt has been accepted for LTACH placement. Call placed to pt's son/HCP Jose who was not able to have a discussion. Jose states he will be at the hospital today for a meeting and will try to speak with CM about d/c plans.
[2024-12-07] MEDS: cefEPime HCl 1 GM in 0.9 % Sodium Chloride 50 ML IV ×2 (11:00→23:05)
[2024-12-07 12:05] LABS: Glucose, Whole Blood 173 mg/dL (60-115)
--- NOTE | 2024-12-07 14:26 | PM.DS ---
DS: Providers Provider Date of Service: 12/07/24 Date of admission: 10/29/24 23:02 Date of discharge: 12/07/24 Primary care physician: Yoselyn Ventura MD Consults: 11/07/24 08:10 Consult to Wound Care Routine Reason for consultation: worsening skin breakdown sacrum Has provider been notified: Yes 11/13/24 14:37 Consult to Thoracic Surgery Routine Consulting Provider: Amrit Solorzano Reason for consultation: Please evaluate for tracheostomy and parenteral gastrostomy Has provider been notified: No 12/01/24 22:58 Consult to NEDS ([facility]) Routine Consulting Provider: [facility] DS: Transfer Hospital Acceptance Reason for Transfer: Long-term acute care with weaning of ventilatory support Name of Facility: [facility] DS: Diagnosis Discharge Diagnosis (1) Heart failure with reduced ejection fraction: Status: Acute (2) Persistent atrial fibrillation: Status: Acute (3) Non-insulin dependent type 2 diabetes mellitus: Status: Acute (4) Tracheostomy in place: Status: Acute (5) Gastrostomy in place: Status: Acute (6) Chronic indwelling Kelly catheter: Status: Acute (7) Myopathy: Status: Acute (8) Skin necrosis: Status: Acute (9) Encephalopathy: Status: Acute (10) Idiopathic pulmonary fibrosis: Status: Acute (11) Failure to wean from mechanical ventilation: Status: Acute (12) Soft tissue abscess of inguinal region: Status: Acute DS: Summary Hospital Course Hospital Course: 79-year-old gentleman with underlying IPF, AFib on anticoagulation, 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 Also with failure to wean from ventilatory support, status post tracheostomy and parenteral gastrostomy on 11/15/2024, now with recurrent small pulmonary aspiration past tracheostomy cuff and progressive critical illness myopathy resulting in poor tolerance of pressure support trials. However, slowly improving both in tolerance of pressure support trials and underlying encephalopathy. Status at Discharge Functional status at discharge: bed bound Time Attestation Total time managing care of this patient today: 60 mintues. Discharge Coordination Time (in mins): 60 Quality: Safe Use of Opioids Does Pt have an Active Cancer Diagnosis on the Problem List?: No Quality: Stroke Does the patient have a stroke diagnosis?: No Physical Exam Vital Signs: Vital Signs: Last Vital Signs Temp 99.9 F 12/07/24 13:00 Pulse 99 12/07/24 14:00 Resp 28 H 12/07/24 14:00 BP 116/71 12/07/24 14:00 Pulse Ox 92 12/07/24 14:00 O2 Del Method Mechanical Ventil ation 12/07/24 14:00 O2 Flow Rate 35 11/19/24 16:00 FiO2 35 12/07/24 14:00 Oxygen Flow Rate 15 10/29/24 14:07 BMI result Body Mass Index 32.0 Const: General: no acute distress and awake (Intermittently lethargic) Eyes: Sclerae: sclerae normal EOM: EOMs intact bilaterally Neck: Neck: Yes no lymphadenopathy, Yes trachea midline, Yes supple and Yes tracheostomy present (Tracheostomy on vent) Resp: Auscultation: clear to auscultation bilaterally Cardio: Rate: tachycardic Rhythm: abnormal rhythm irregularly irregular Heart sounds: no gallops, no murmurs and no rubs GI: Inspection: Yes G-tube present Palpation (GI): Soft to palpation and Other GI palpation findings present ( Nontender) Auscultation: normal bowel sounds Extrem: Other: Left femoral surgical site with secondary intent closure with induration and mild serous drainage only. No fluctuance. General: No clubbing, No cyanosis and Yes edema (Trace edema) DS: Data Data Completed and Pending Completed studies during hospitalization [Text1]: Pending at discharge 11/11/24 19:20 Surgical [PTH] Routine Labs on day of discharge: Laboratory Results - last 24 hr 12/06/24 12/06/24 12/07/24 17:18 23:34 05:15 WBC RBC Hgb Hct MCV MCH MCHC RDW Plt Count MPV Immature Gran % (Auto) Neut % (Auto) Lymph % (Auto) [place] % (Auto) Eos % (Auto) Baso % (Auto) Lymph # (Auto) [place] # (Auto) Eos # (Auto) Baso # (Auto) Abs Immat Gran (auto) Absolute Neuts (auto) Absolute Nucleated RBC Nucleated RBC % (auto) VBG pH VBG pCO2 VBG pO2 VBG HCO3 VBG O2 Saturation VBG Base Excess Sodium Potassium Chloride Carbon Dioxide Anion Gap BUN Creatinine Estim Creat Clear Calc Estimated GFR POC Glucose 182 H 188 H 173 H Random Glucose Calcium Phosphorus Magnesium Albumin 12/07/24 12/07/24 12/07/24 05:30 05:40 11:57 WBC 13.5 H RBC 2.87 L Hgb 8.1 L Hct 26.9 L MCV 93.7 MCH 28.2 MCHC 30.1 L RDW 17.2 H Plt Count 147 L MPV 12.2 Immature Gran % (Auto) 0.5 H Neut % (Auto) 50.8 Lymph % (Auto) 34.7 [place] % (Auto) 7.5 Eos % (Auto) 6.1 H Baso % (Auto) 0.4 Lymph # (Auto) 4.7 [place] # (Auto) 1.0 Eos # (Auto) 0.8 H Baso # (Auto) 0.1 Abs Immat Gran (auto) 0.07 H Absolute Neuts (auto) 6.8 Absolute Nucleated RBC 0.000 Nucleated RBC % (auto) 0.0 VBG pH 7.57 H VBG pCO2 47 VBG pO2 41 VBG HCO3 44 H VBG O2 Saturation 69.0 VBG Base Excess 20.4 Sodium 136 Potassium 4.5 D Chloride 92 L Carbon Dioxide 35 H Anion Gap 14 BUN 33 H Creatinine 0.64 Estim Creat Clear Calc 109.9 Estimated GFR > 60 POC Glucose 173 H Random Glucose 209 H Calcium 9.0 Phosphorus 4.4 Magnesium 2.3 Albumin 2.9 L Discharge Plan Discharge Patient Disposition: Xfer LT Discharge Diagnosis: Failure to wean from mechanical ventilation, left groin abscess Referrals: Yoselyn Ventura MD [Primary Care Provider] - 1 Week Discharge Medications: Discontinued furosemide 40 mg tablet 40 mg PO BID metformin 500 mg tablet 500 mg PO BID prednisone 10 mg tablet 10 mg PO DAILY ipratropium-albuterol 0.5 mg-3 mg(2.5 mg base)/3 mL solution for nebulization 3 ml INHALATION Q4H PRN (Reason: Shortness Of Breath Or Wheezing) potassium chloride 20 mEq tablet,ER particles/crystals 20 meq PO BID tamsulosin 0.4 mg capsule 0.4 mg PO BEDTIME omeprazole 20 mg Capsule,Delayed Release(Dr/Ec) 20 mg PO DAILY doxazosin 4 mg tablet 4 mg PO BID Protocol: Hold for SBP< HOLD for SBP < : 110 folic acid 1 mg Tablet 1 mg PO DAILY fluticasone propion-salmeterol [Advair Diskus] 100-50 mcg/dose Blister With Device 1 inh INHALATION BID fluticasone propionate 50 mcg/actuation spray,suspension 2 spray INTRANASAL DAILY Rx Instructions: Alternating Nostrils clotrimazole 1 % cream 1 appl topical DAILY PRN (Reason: Rash) Eliquis 5 mg tablet 5 mg PO BID amoxicillin-pot clavulanate 500-125 mg Tablet 1 tab PO BID Qty: 18 0RF Rx Instructions: END DATE 11/05/24 azithromycin 250 mg tablet 250 mg PO DAILY 4 Days Qty: 4 0RF Rx Instructions: start on day 2 of therapy END DATE 10/31/24 prednisone 20 mg tablet 20 mg PO DAILY Rx Instructions: END DATE 11/01/24 acetaminophen 500 mg Tablet 1,000 mg PO BID Discharge Orders: Discharge Order (Routine); Ordered 12/07/24 Ordered By: Uriel Beckford Activity on Discharge: Bed-bound Stand Alone Forms: Patient Portal Discharge page Print Language: [place] Care Plan Goals: Continue with ventilator weaning. Health Concerns: Failure to wean from mechanical ventilation Plan of Treatment: Neuro: Acute encephalopathy, very slowly improving. Underlying chronic dysphagia. Critical illness myopathy. Cardiac: Underlying paroxysmal AFib and chronic systolic congestive heart failure. Pulmonary: Acute hypoxic respiratory failure with inability to wean from ventilatory support. Status post tracheostomy/gastrostomy on 11/15/2024. Underlying pulmonary fibrosis. Continue with ventilator weaning trials, improving slowly. Renal: No acute issues. Endo: No acute issues. Underlying diabetes mellitus, continue subcutaneous insulin. GI: No acute issues. Status post PEG. ID: ESBL UTI, s/p meropnem course. Femoral abscess continue cefepime day 5/14. Heme/Onc: No acute issues. Psych: No acute issues. Discharge medications: Cefepime 1 g IV q.12 Chlorhexidine 15 mL buccal t.i.d. Lovenox 40 mg subcutaneously Q 24 hours Famotidine 20 mg IV daily Lasix 40 mg IV b.i.d. Insulin lispro sliding scale q.6 hours Glucerna 90 mL/hr run for 24 hours with free water flushes 120 mL every 6 hours Assessment: 79-year-old gentleman with underlying multiple medical issues admitted with ESBL UTI further complicated by septic shock, acute respiratory failure requiring ventilatory support, multiorgan failure, and hemorrhagic shock as a complication of femoral hematoma with residual abscess now status post percutaneous drain removed, also with critical illness myopathy and poor tolerance of pressure support trials, though overall slowly improving.
[2024-12-07] MEDS: Acetaminophen Oral Liquid 650 MG/20.3 ML SOLUTION PO ×2 (15:40→23:10)
--- NOTE | 2024-12-07 16:03 | MHC.CM.PN ---
Received call from Emily at [facility]: D/T 2 RN callouts, they are unable to accept pt tonight d/t strict pt to RN ratios. Emily is requesting pt transfer tomorrow. Message sent to Monica to cancel transfer this afternoon and rebook for tomorrow. Per Monica, they are looking for a team for a 1-2 transfer time. If they cannot staff this, they will have to pass and another transport company will need to be booked. Call placed to pt's son to inform him of d/c plan. He is requesting a call tomorrow for updates.
--- NOTE | 2024-12-07 17:13 | PC.NURSE ---
Assumed care at 0700. Precedex drip off per MD at approx 0800. Levophed titrated; see MAR for details. Pt up to fan chair at approx 0930. Pt more awake, attempting to talk, answering yes/no questions. HR 110-130, RR 30s while in chair; MD aware. Levophed drip stopped at approx 0930. Pt moved back to bed at approx 1300. Son amenable to transfer of pt to facility in [place]. Transfer scheduled for 12/08/24 early afternoon. Per MD order, TJ drain removed without incident.
[2024-12-07 17:43] LABS: Glucose, Whole Blood 139 mg/dL (60-115)
[2024-12-07] MEDS: Furosemide 40 MG/4 ML VIAL IVPUSH (17:45)
[2024-12-07 23:27] LABS: Glucose, Whole Blood 164 mg/dL (60-115)
[2024-12-08] VITALS (15 sets, daily range): BP systolic 102–140; BP diastolic 48–78; PULSE 95–123; RESP 17–36; TEMP 34.9–39; O2SAT 90–100; BMI 31.8
[2024-12-08] MEDS: Albumin Human 25 % 100 ML IV (01:40)
--- NOTE | 2024-12-08 04:11 | PC.NURSE ---
Assumed care of patient at 1900. Patient awake, follows commands occasionally. Attempts to speak, appears agitated at times, can be resistive to care. Sinus arrythmia on telemetry. Patient has trach and is on ventilator. ACVC settings . FiO2 increased to 50% overnight. Temp as high as 101 . Tylenol administered with some effect. PEG tube in place, Glucerna running at 90ml/hr which is goal. Kelly draining carlos colored urine. Vital signs stable. Patient scheduled to be discharged today to LT[facility].
[2024-12-08 05:24] LABS: VBG Base Excess 20.1 mmol/L; VBG HCO3 44 mmol/L (22-26); VBG pCO2 49 mmHg; VBG pH 7.56 (7.32-7.43); VBG pO2 38 mmHg
[2024-12-08 05:47] LABS: Basophils Absolute Auto 0.1 X10*3/uL (0.0-0.2); Basophils Percent Auto 0.4 % (0-2); Eosinophils Absolute Auto 0.6 X10*3/uL (0.0-0.4); Eosinophils Percent Auto 3.5 % (0-4); Hematocrit 23.6 % (42.0-52.0); Hemoglobin 7.5 g/dl (14.0-18.0); Imm Gran Abs Auto 0.07 X10*3/uL (0.00-0.03); Imm Gran Pct Auto 0.4 % (0.0-0.4); Lymphocytes Absolute Auto 4.8 X10*3/uL (1.2-4.9); Lymphocytes Percent Auto 30.4 % (20-40); MANUAL DIFF FLAG NO; Mean Corpuscular HGB Conc 31.8 g/dl (31.0-36.0); Mean Corpuscular Hemoglobin 29.1 pg (27.0-33.0); Mean Corpuscular Volume 91.5 fL (80.0-98.0); Mean Platelet Volume 12.7 fL (9.4-12.4); Monocytes Percent Auto 6.5 % (2-11); Neutrophils Absolute Auto 9.3 x10*3/uL (2.0-8.3); Neutrophils Percent Auto 58.8 % (45-73); Platelet Count 139 X10*3/uL (160-400); Red Blood Count 2.58 X10*6/uL (4.60-5.80); Red Cell Distribution Width 17.7 % (11.0-16.0); White Blood Count 15.9 X10*3/uL (4.8-10.8)
[2024-12-08 06:13] LABS: Alanine Aminotransferase < 6 U/L (0-40); Albumin Level 3.8 g/dL (3.5-5.0); Anion Gap 16 (12-20); Aspartate Amino Transferase 30 U/L (5-37); Bilirubin Total 0.8 mg/dL (0.0-1.0); Blood Urea Nitrogen 43 mg/dL (9-16); Calcium 9.5 mg/dL (8.4-10.2); Carbon Dioxide 35 mmol/L (22-29); Chloride 94 mmol/L (96-108); Creatinine Clr Calc Pharmacy 103.4; Estimated Glomerular Filt Rate > 60; Glucose Random 171 mg/dL (60-115); Magnesium 2.4 mg/dL (1.6-2.6); Phosphorus 4.3 mg/dL (2.7-4.5); Potassium 3.6 mmol/L (3.3-5.1); Sodium 141 mmol/L (135-145); Total Protein 8.6 g/dL (6.5-8.0)
[2024-12-08 06:21] LABS: Alkaline Phosphatase 165 U/L (39-117)
[2024-12-08] MEDS: Insulin Lispro 100 UNIT/ML 3 ML VIAL SUBCUT (06:29)
[2024-12-08 07:11] LABS: Venous Blood Gas Refer to POC result
[2024-12-08] MEDS: Potassium Chloride Packet 20 MEQ PACKET PO (08:42)
[2024-12-08] MEDS: Famotidine/PF 20 MG/2 ML VIAL IVPUSH (08:42)
[2024-12-08] MEDS: 0.9 % Sodium Chloride Flush 3 ML SYRINGE IVFLUSH (08:42)
[2024-12-08] MEDS: Furosemide 40 MG/4 ML VIAL IVPUSH (08:42)
[2024-12-08] MEDS: Chlorhexidine Gluc Oral Rinse 15 ML MOUTHWASH BUCCAL (08:42)
[2024-12-08] MEDS: Enoxaparin Sodium 40 MG/0.4 ML SYRINGE SUBCUT (08:43)
--- NOTE | 2024-12-08 09:50 | MHC.CLN ---
F/U DISCUSSED AT ROUNDS WITH MD-PENDING D/C TODAY REVIEWED LABS-UNREMARKABLE CONTINUE GLUCERNA 1.0 TF AT MAX GOAL RATE 90ML/HR WITH 30ML PROSOURCE BID AND 120ML FREE WATER FLUSHES Q 6 HRS PROVIDES 2280KCALS (31KCALS/KG IBW), 120G TOTAL PROTEIN (1.6G/KG IBW), 2322ML TOTAL FREE WATER FROM FORMULA AND FLUSHES (32ML/KG IBW) TF WITH PROSOURCE WILL PROMOTE WOUND HEALING CONTINUE TO MONITOR TOLERANCE AND LYTES
--- NOTE | 2024-12-08 10:02 | MHC.CM.PN ---
Addendum entered by Joana Marin 12/08/24 11:40: Pts son/HCP Jose was called by this CM and notified of the discharge today. Original Note: Pt is medically cleared for discharge to [facility] in [place], [place] today, he will transport via ALS/Monica today.
[2024-12-08] MEDS: Acetaminophen Oral Liquid 650 MG/20.3 ML SOLUTION PO (10:27)
[2024-12-08] MEDS: cefEPime HCl 1 GM in 0.9 % Sodium Chloride 50 ML IV (10:28)
[2024-12-08] MEDS: LORazepam 2 MG/ML VIAL IVPUSH (12:08)
--- NOTE | 2024-12-08 13:02 | PC.NURSE ---
Assumed care of patient 0700 Pt turned and repositioned Q2HR with Isoflex bed and wedges. Pt had bowel movement 10:00, cleaned and provided partial bed bath, dorita care and catheter care. Plan for transfer to [facility] today. [facility] ambulance crew arrived 11:45. Pt transitioned to ZOLL ventillator with RT at bedside. Pt tolerance assessed for ACVC settings. 2 mg Ativan IVP given for restlessness, vent synchrony. Positive effect. SaO2 98%, Pt RR decreased to within normal limits. Pt transported out of ICU unit with ACLS crew at 12:15. Extra trach kit provided to ambulance crew.
== END 2024-12-08 12:15 | DRG 3 ==
LOC: HO.ED 18:21 → HO.EDOVER 23:22 → HO.ICU 10-30 14:37
PROVIDERS: Internal Medicine; Internal Medicine Critical Care Medicine; Nurse Practitioner Acute Care; Nurse Practitioner Family; Physician Assistant Medical; Registered Nurse Community Health; Surgery; Surgery Vascular Surgery; Admitting Provider Physician Assistant; Emergency Provider Emergency Medicine; PCP Internal Medicine; Visit Provider Internal Medicine Pulmonary Disease
PROC: 04CL0ZZ Extirpation of Matter from Left Femoral Artery, Open Approach (ICD-10-PCS; principal; 2024-11-11 17:45)
PROC: 0B110F4 Bypass Trachea to Cutaneous with Tracheostomy Device, Open Approach (ICD-10-PCS; principal; 2024-11-15 14:00)
PROC: 0DH63UZ Insertion of Feeding Device into Stomach, Percutaneous Approach (ICD-10-PCS; CPT 43246; 2024-11-15 14:00)
DX: T83.511A Infection and inflammatory reaction due to indwelling urethral catheter, initial encounter (principal); R65.21 Severe sepsis with septic shock; J96.21 Acute and chronic respiratory failure with hypoxia; I50.23 Acute on chronic systolic (congestive) heart failure; K72.00 Acute and subacute hepatic failure without coma; R57.8 Other shock; G92.8 Other toxic encephalopathy; C79.51 Secondary malignant neoplasm of bone; D69.3 Immune thrombocytopenic purpura; E87.3 Alkalosis; I47.20 Ventricular tachycardia, unspecified; I96 Gangrene, not elsewhere classified; Z99.11 Dependence on respirator [ventilator] status; J95.03 Malfunction of tracheostomy stoma; Z16.12 Extended spectrum beta lactamase (ESBL) resistance; L02.214 Cutaneous abscess of groin; I97.638 Postprocedural hematoma of a circulatory system organ or structure following other circulatory system procedure; L89.152 Pressure ulcer of sacral region, stage 2; I48.0 Paroxysmal atrial fibrillation; E11.9 Type 2 diabetes mellitus without complications; N39.0 Urinary tract infection, site not specified; E87.6 Hypokalemia; E83.39 Other disorders of phosphorus metabolism; L89.156 Pressure-induced deep tissue damage of sacral region; C61 Malignant neoplasm of prostate; B96.20 Unspecified Escherichia coli [E. coli] as the cause of diseases classified elsewhere; J84.112 Idiopathic pulmonary fibrosis; I49.3 Ventricular premature depolarization; Z20.822 Contact with and (suspected) exposure to COVID-19; Z87.440 Personal history of urinary (tract) infections; Z79.01 Long term (current) use of anticoagulants; Z79.52 Long term (current) use of systemic steroids; Z79.899 Other long term (current) drug therapy
CPT/HCPCS: 0241U; 10030; 36415; 36573; 36600; 70450; 71045; 71046; 71275; 74174; 74177; 76857; 80048; 80053; 80076; 80202; 81001; 82040; 82272; 82550; 82565; 82803; 82947; 83605; 83735; 83880; 84100; 84145; 84439; 84443; 84484; 85025; 85027; 85610; 85730; 86140; 86850; 86900; 86901; 86920; 86923; 87040; 87070; 87073; 87077; 87086; 87088; 87186; 87205; 88304; 92610; 93005; 94002; 94003; 94640; 94660; 94799; 99283; 99285; C1751; C1758; C9250; J0131; J0283; J0330; J0692; J1120; J1171; J1596; J1650; J1720; J1940; J2003; J2004; J2020; J2060; J2185; J2250; J2371; J2470; J2543; J2598; J2704; J2795; J3010; J3370; J3371; J3475; J3480; J7120; J7168; P9016; P9017; P9047; P9073; Q4186; Q9967

== ENCOUNTER → 2024-10-29 14:11 | Outpatient (BNV) | payer MEDICARE, MEDICAID, SELFPAY | PROVIDERS: Admitting Provider Physician Assistant; Emergency Provider Emergency Medicine; PCP Internal Medicine; Visit Provider Internal Medicine Cardiovascular Disease | DX: R06.09 Other forms of dyspnea (principal); R94.31 Abnormal electrocardiogram [ECG] [EKG] | CPT/HCPCS: 93010 ==

== ENCOUNTER → 2024-10-29 14:12 | Outpatient (BNV) | payer MEDICARE, MEDICAID, SELFPAY | PROVIDERS: Emergency Provider Emergency Medicine; Visit Provider Radiology Diagnostic Radiology | DX: K57.30 Diverticulosis of large intestine without perforation or abscess without bleeding (principal); M89.8X8 Other specified disorders of bone, other site; R06.00 Dyspnea, unspecified | CPT/HCPCS: 71045; 71275; 74177 ==

== ENCOUNTER 2024-10-29 23:02 | Outpatient (BNV) | payer MEDICARE, MEDICAID, SELFPAY | END 2024-11-17 16:50 | PROVIDERS: Admitting Provider Physician Assistant; Emergency Provider Emergency Medicine; PCP Internal Medicine; Visit Provider Radiology Diagnostic Radiology | DX: Z45.2 Encounter for adjustment and management of vascular access device (principal) | CPT/HCPCS: 71045 ==

== ENCOUNTER 2024-10-29 23:02 | Outpatient (BNV) | payer MEDICARE, MEDICAID, SELFPAY | END 2024-11-11 11:48 | PROVIDERS: Admitting Provider Physician Assistant; Emergency Provider Emergency Medicine; PCP Internal Medicine; Visit Provider Radiology Diagnostic Radiology | DX: N39.0 Urinary tract infection, site not specified (principal) | CPT/HCPCS: 74174 ==

== ENCOUNTER 2024-10-29 23:02 | Outpatient (BNV) | payer MEDICARE, MEDICAID, SELFPAY | END 2024-11-22 09:00 | PROVIDERS: Admitting Provider Physician Assistant; Emergency Provider Emergency Medicine; PCP Internal Medicine; Visit Provider Physician Assistant Surgical | DX: R22.42 Localized swelling, mass and lump, left lower limb (principal) | CPT/HCPCS: 10030 ==

== ENCOUNTER 2024-10-29 23:02 | Outpatient (BNV) | payer MEDICARE, MEDICAID, SELFPAY | END 2024-11-29 07:00 | PROVIDERS: Admitting Provider Physician Assistant; Emergency Provider Emergency Medicine; PCP Internal Medicine; Visit Provider Radiology Vascular & Interventional Radiology | DX: G93.41 Metabolic encephalopathy (principal) | CPT/HCPCS: 70450 ==

== ENCOUNTER 2024-10-29 23:02 | Outpatient (BNV) | payer MEDICARE, MEDICAID, SELFPAY | END 2024-10-31 16:00 | PROVIDERS: Admitting Provider Physician Assistant; Emergency Provider Emergency Medicine; PCP Internal Medicine; Visit Provider Radiology Diagnostic Radiology | DX: J90 Pleural effusion, not elsewhere classified (principal) | CPT/HCPCS: 71045 ==

== ENCOUNTER 2024-10-29 23:02 | Outpatient (BNV) | payer MEDICARE, MEDICAID, SELFPAY | END 2024-10-30 17:20 | PROVIDERS: Admitting Provider Physician Assistant; Emergency Provider Emergency Medicine; PCP Internal Medicine; Visit Provider Radiology Diagnostic Radiology | DX: R06.02 Shortness of breath (principal) | CPT/HCPCS: 71045 ==

== ENCOUNTER 2024-10-29 23:02 | Outpatient (BNV) | payer MEDICARE, MEDICAID, SELFPAY | END 2024-11-15 15:20 | PROVIDERS: Admitting Provider Physician Assistant; Emergency Provider Emergency Medicine; PCP Internal Medicine; Visit Provider Radiology Diagnostic Radiology | DX: I51.7 Cardiomegaly (principal) | CPT/HCPCS: 71045 ==

== ENCOUNTER 2024-10-29 23:02 | Outpatient (BNV) | payer MEDICARE, MEDICAID, SELFPAY | END 2024-11-21 17:05 | PROVIDERS: Admitting Provider Physician Assistant; Emergency Provider Emergency Medicine; PCP Internal Medicine; Visit Provider Radiology Diagnostic Radiology | DX: S31.104A Unspecified open wound of abdominal wall, left lower quadrant without penetration into peritoneal cavity, initial encounter (principal) | CPT/HCPCS: 76857 ==

== ENCOUNTER → 2024-10-29 23:02 | Outpatient (BNV) | payer MEDICARE, MEDICAID, SELFPAY | PROVIDERS: Admitting Provider Physician Assistant; Emergency Provider Emergency Medicine; Visit Provider Internal Medicine | DX: N39.0 Urinary tract infection, site not specified (principal); A41.9 Sepsis, unspecified organism; I50.9 Heart failure, unspecified; J96.01 Acute respiratory failure with hypoxia | CPT/HCPCS: 99233; 99499 ==

== ENCOUNTER → 2024-10-29 23:02 | Outpatient (BNV) | payer MEDICARE, MEDICAID, SELFPAY | PROVIDERS: Admitting Provider Physician Assistant; Emergency Provider Emergency Medicine; PCP Internal Medicine; Visit Provider Internal Medicine Pulmonary Disease | DX: I50.20 Unspecified systolic (congestive) heart failure (principal); I48.19 Other persistent atrial fibrillation; N39.0 Urinary tract infection, site not specified; Z16.12 Extended spectrum beta lactamase (ESBL) resistance; A41.9 Sepsis, unspecified organism; R65.21 Severe sepsis with septic shock; E11.9 Type 2 diabetes mellitus without complications; Z97.8 Presence of other specified devices; B96.29 Other Escherichia coli [E. coli] as the cause of diseases classified elsewhere; Z85.46 Personal history of malignant neoplasm of prostate; J84.112 Idiopathic pulmonary fibrosis; J96.21 Acute and chronic respiratory failure with hypoxia | CPT/HCPCS: 99291 ==

== ENCOUNTER → 2024-10-29 23:02 | Outpatient (BNV) | payer MEDICARE, MEDICAID, SELFPAY | PROVIDERS: Admitting Provider Physician Assistant; Emergency Provider Emergency Medicine; PCP Internal Medicine; Visit Provider Surgery | DX: J96.21 Acute and chronic respiratory failure with hypoxia (principal); Z99.11 Dependence on respirator [ventilator] status | CPT/HCPCS: 31600; 43246; 99222; 99223; 99232; 99499 ==

== ENCOUNTER → 2024-10-29 23:02 | Outpatient (BNV) | payer MEDICARE, MEDICAID, SELFPAY | PROVIDERS: Admitting Provider Physician Assistant; Emergency Provider Emergency Medicine; PCP Internal Medicine; Visit Provider Internal Medicine Critical Care Medicine | DX: J96.21 Acute and chronic respiratory failure with hypoxia (principal); A41.9 Sepsis, unspecified organism; R65.21 Severe sepsis with septic shock; G93.41 Metabolic encephalopathy | CPT/HCPCS: 99291 ==

== ENCOUNTER → 2024-10-29 23:02 | Outpatient (BNV) | payer MEDICARE, MEDICAID, SELFPAY | PROVIDERS: Admitting Provider Physician Assistant; Emergency Provider Emergency Medicine; PCP Internal Medicine; Visit Provider Surgery Vascular Surgery | DX: S30.1XXA Contusion of abdominal wall, initial encounter (principal) | CPT/HCPCS: 35860; 99024; 99223 ==